=== PATIENT | male | born 1955 | race Caucasian/White ===

== ENCOUNTER 2022-08-11 10:39 | Outpatient (OUT) | payer MEDICARE, MEDICAID, SELFPAY ==
--- NOTE | 2022-08-11 11:47 | CA_ITS ---
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
== END 2022-08-11 10:40 ==
LOC: CARD 10:45
DX: I73.9 Peripheral vascular disease, unspecified (principal)
CPT/HCPCS: 93923

== ENCOUNTER 2022-09-23 11:14 | Outpatient (OUT) | payer MEDICARE, SELFPAY ==
[2022-09-23 11:42] LABS: Basophils Percent Auto 0.3 % (0.2-2.0); Eosinophils Percent Auto 0.4 % (0.9-7.0); Hematocrit 37.8 % (42.0-54.0); Hemoglobin 11.9 g/dL (14.0-18.0); Immature Granulocytes Abs Auto 0.03 10^3/uL (0.00-0.03); Immature Granulocytes Pct Auto 0.3 % (0.0-0.5); Lymphocytes Absolute Auto 3.9 10^3/uL (1.2-3.8); Lymphocytes Percent Auto 37.5 % (20.5-60.0); Mean Corpuscular HGB Conc 31.5 g/dL (29.9-35.2); Mean Corpuscular Hemoglobin 29.1 pg (25.9-34.0); Mean Corpuscular Volume 92.4 fL (80.0-94.0); Mean Platelet Volume 11.2 fL (9.5-13.5); Monocytes Absolute Auto 0.9 10^3/uL (0.3-0.8); Monocytes Percent Auto 8.5 % (1.7-12.0); Neutrophils Absolute Auto 5.5 10^3/uL (1.4-6.5); Platelet Count 215 10^3/uL (150-450); Red Blood Count 4.09 10^6/uL (4.70-6.10); White Blood Count 10.4 10^3/uL (4.0-11.0)
== END 2022-09-23 11:15 | disposition home or self-care (01) ==
LOC: LAB 11:16
DX: D64.9 Anemia, unspecified (principal)
CPT/HCPCS: 36415; 85025

== ENCOUNTER 2022-10-26 11:04 | Outpatient (OUT) | payer MEDICARE, SELFPAY ==
[2022-10-26 11:55] LABS: Basophils Absolute Auto 0.1 10^3/uL (0.0-0.1); Basophils Percent Auto 0.6 % (0.2-2.0); Eosinophils Absolute Auto 0.1 10^3/uL (0.0-0.7); Eosinophils Percent Auto 0.7 % (0.9-7.0); Hematocrit 39.1 % (42.0-54.0); Hemoglobin 11.9 g/dL (14.0-18.0); Immature Granulocytes Abs Auto 0.03 10^3/uL (0.00-0.03); Immature Granulocytes Pct Auto 0.4 % (0.0-0.5); Lymphocytes Percent Auto 37.2 % (20.5-60.0); Mean Corpuscular HGB Conc 30.4 g/dL (29.9-35.2); Mean Corpuscular Hemoglobin 30.6 pg (25.9-34.0); Mean Corpuscular Volume 100.5 fL (80.0-94.0); Mean Platelet Volume 11.1 fL (9.5-13.5); Monocytes Absolute Auto 0.7 10^3/uL (0.3-0.8); Monocytes Percent Auto 8.4 % (1.7-12.0); Neutrophils Absolute Auto 4.3 10^3/uL (1.4-6.5); Neutrophils Percent Auto 52.7 % (43.0-75.0); Platelet Count 238 10^3/uL (150-450); Red Blood Count 3.89 10^6/uL (4.70-6.10); Red Cell Distribution Width 14.1 % (11.0-15.0); White Blood Count 8.1 10^3/uL (4.0-11.0)
[2022-10-26 12:22] LABS: Anion Gap 8.9; Calcium 8.8 mg/dL (8.5-10.1); Carbon Dioxide 36.9 mmol/L (21.0-32.0); Chloride 102 mmol/L (98-107); Estimated GFR (African America >60 (>=60); Estimated GFR (Non-African Ame >60 (>=60); Glucose 88 mg/dL (74-106); Potassium 3.8 mmol/L (3.5-5.1); Sodium 144 mmol/L (136-145); Thyroid Stimulating Hormone 1.405 uIU/mL (0.358-3.740)
== END 2022-10-26 11:05 | disposition home or self-care (01) ==
DX: I48.0 Paroxysmal atrial fibrillation (principal); Z79.01 Long term (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 of anticoagulants
CPT/HCPCS: 36415; 80048; 84443; 85025

== ENCOUNTER 2022-11-08 10:40 | Outpatient (OUT) | payer MEDICARE, SELFPAY ==
[2022-11-08 11:22] LABS: Basophils Percent Auto 0.4 % (0.2-2.0); Eosinophils Absolute Auto 0.1 10^3/uL (0.0-0.7); Eosinophils Percent Auto 0.6 % (0.9-7.0); Hemoglobin 11.8 g/dL (14.0-18.0); Immature Granulocytes Abs Auto 0.05 10^3/uL (0.00-0.03); Immature Granulocytes Pct Auto 0.5 % (0.0-0.5); Lymphocytes Percent Auto 31.2 % (20.5-60.0); Mean Corpuscular HGB Conc 31.9 g/dL (29.9-35.2); Mean Corpuscular Hemoglobin 31.6 pg (25.9-34.0); Mean Corpuscular Volume 98.9 fL (80.0-94.0); Mean Platelet Volume 11.1 fL (9.5-13.5); Monocytes Absolute Auto 0.8 10^3/uL (0.3-0.8); Monocytes Percent Auto 8.6 % (1.7-12.0); Neutrophils Absolute Auto 5.6 10^3/uL (1.4-6.5); Neutrophils Percent Auto 58.7 % (43.0-75.0); Platelet Count 209 10^3/uL (150-450); Red Blood Count 3.74 10^6/uL (4.70-6.10); Red Cell Distribution Width 13.2 % (11.0-15.0); White Blood Count 9.5 10^3/uL (4.0-11.0)
== END 2022-11-08 10:41 | disposition home or self-care (01) ==
LOC: LAB 10:42
PROVIDERS: Visit Provider Nurse Practitioner
DX: Z79.01 Long term (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 of anticoagulants (principal)
CPT/HCPCS: 36415; 85025

== ENCOUNTER 2022-11-29 19:09 | Observation (INO) | payer MEDICARE, SELFPAY ==
[2022-11-29 19:12] VITALS: BP 115/45; PULSE 61; RESP 18; TEMP 36.3; O2SAT 96; BMI 23.1
--- NOTE | 2022-11-29 19:21 | ED_ITS ---
HPI - Fall General Chief Complaint: Fall Stated Complaint: Fall, Right Shoulder Pain Time Seen by Provider: 11/29/22 19:21 History of Present Illness HPI Narrative: left a bar and fell outdoors. family states he has to walk down two stairs. Patient not able to remember what happen. Complains of right shoulder pain. Denies headache or wrist pain but does have an abrasion right christianity and wrist. no swelling of the wrist. No associated nausea or vomiting. Admits to drinking too much Family called and they picked him up and brought him here patient does have home 02 and requires cardiac pacemaker Related Data Allergies Allergy/AdvReac Type Severity Reaction Status Date / Time codeine Allergy Mild Unknown Verified 11/29/22 19:23 Review of Systems ROS Status of ROS 10 or more systems reviewed and unremarkable except as noted in history and below [facility] Social History Smoking status: Former smoker Exam Constitutional Vital Signs, click to edit/add: Last Vital Signs Temp 97.3 F L 11/29/22 19:12 Pulse 61 11/29/22 19:12 Resp 18 11/29/22 19:12 BP 115/45 L 11/29/22 19:12 Pulse Ox 96 11/29/22 19:43 O2 Del Method Nasal Cannula 11/29/22 19:43 O2 Flow Rate 2 11/29/22 19:43 Common normals: no apparent distress, average body habitus, oriented x3, alert and well nourished [facility] Common normals: normocephalic (minor abrasions right facial christianity) Eye Common normals: EOMs intact bilaterally and conjunctivae normal Chest Common normals: inspection of chest normal and palpation of chest normal Respiratory Common normals: normal respiratory effort, no retractions, no use of accessory muscles and clear to auscultation bilaterally Cardio Common normals: regular rate, regular rhythm, S1 normal heart sound and S2 normal heart sound GI Common normals: Normal to inspection, nondistended, normoactive bowel sounds present, soft to palpation and non-tender Extremity Other: minor abrasion dorsum right wrist. Neg. swelling. FROM without discomfort Neuro Common normals: oriented x3, CN's II-XII intact bilaterally, moves all extremities and no focal motor deficits Psych Appearance: grossly normal Course Vital Signs Vital signs: Vital Signs Temperature 97.3 F L 11/29/22 19:12 Pulse Rate 61 11/29/22 19:12 Respiratory Rate 18 11/29/22 19:12 Blood Pressure 115/45 L 11/29/22 19:12 Pulse Oximetry 96 11/29/22 19:12 Oxygen Delivery Method Nasal Cannula 11/29/22 19:12 Oxygen Delivery Flow Rate 2 11/29/22 19:12 Temperature 97.3 F L 11/29/22 19:12 Pulse Rate 61 11/29/22 19:12 Respiratory Rate 18 11/29/22 19:12 Blood Pressure 115/45 L 11/29/22 19:12 Pulse Oximetry 96 11/29/22 19:43 Oxygen Delivery Method Nasal Cannula 11/29/22 19:43 Oxygen Delivery Flow Rate 2 11/29/22 19:43 MDM - Fall MDM Narrative Medical decision making narrative: patient left a bar tonight and fell walking down a couple of steps striking his right shoulder. Also sustained minor abrasion of the right christianity and wrist. xray with fracture of the right shoulder. D-dimer elevated. CTA chest neg for PE. did demonstrate 1.1cm nodule. Patient aware of the nodule and states it is followed by Dr Thomas. His labs demonstrate alcohol intoxication. He has no respiratory symptoms and pneumonia not suspected clinically. Patient placed in a sling and discharged home to follow up with orthopedics Lab Data Labs: Lab Results 11/29/22 Range/Units 19:35 WBC 9.4 (4.0-11.0) 10^3/uL RBC 3.47 L (4.70-6.10) 10^6/uL Hgb 11.4 L (14.0-18.0) g/dL Hct 35.3 L (42.0-54.0) % MCV 101.7 H (80.0-94.0) fL MCH 32.9 (25.9-34.0) pg MCHC 32.3 (29.9-35.2) g/dL RDW 12.6 (11.0-15.0) % Plt Count 244 (150-450) 10^3/uL MPV 11.5 (9.5-13.5) fL Neut % (Auto) 44.3 (43.0-75.0) % Lymph % (Auto) 47.3 (20.5-60.0) % [place] % (Auto) 7.3 (1.7-12.0) % Eos % (Auto) 0.4 L (0.9-7.0) % Baso % (Auto) 0.4 (0.2-2.0) % Neut # (Auto) 4.2 (1.4-6.5) 10^3/uL Lymph # (Auto) 4.4 H (1.2-3.8) 10^3/uL [place] # (Auto) 0.7 (0.3-0.8) 10^3/uL Eos # (Auto) 0.0 (0.0-0.7) 10^3/uL Baso # (Auto) 0.0 (0.0-0.1) 10^3/uL Abs Immat Gran (auto) 0.03 (0.00-0.03) 10^3/uL Imm/Tot Granulo (auto) 0.3 (0.0-0.5) % D-Dimer 1.66 H* (<=0.59) mg/L FEU Sodium 133 L (136-145) mmol/L Potassium 3.2 L (3.5-5.1) mmol/L Chloride 94 L (98-107) mmol/L Carbon Dioxide 30.3 (21.0-32.0) mmol/L Anion Gap 11.9 BUN 18.0 (7.0-18.0) mg/dL Creatinine 0.90 (0.70-1.30) mg/dL Est GFR ( Amer) >60 (>=60) Est GFR (Non-Af Amer) >60 (>=60) BUN/Creatinine Ratio 20.0 Glucose 96 (74-106) mg/dL Calcium 8.4 L (8.5-10.1) mg/dL Troponin I High Sens 7.4 (4.0-76.1) pg/mL Ethanol Quant 292 mg/dL Imaging Data CT scan - chest: Attestation: I personally reviewed and interpreted this imaging study as follows: Radiologist's impression: [email or web address]=#[email or web address] [email or web address]?file=#page=2 Find: Highlight all Match case Current View [email or web address]?file=#[email or web address]&zoom=auto,-13,576 Page: of 2 Current View [email or web address]?file=#[email or web address]&zoom=auto,-13,576 [place] [id number] Patient Name: ALESSANDRA LECHUGA MRN: [id number] date: 1955 Sex: M Assigned Patient Location: ER Current Patient Location: ER Accession/Order Number: [id number] Exam Date: 11/29/2022 21:20 Report Date: 11/29/2022 22:10 At the request of: BERNADETTE FERNANDEZ Procedure: CT angio chest EXAM: CT angio chest HISTORY: fall COMPARISON: None. TECHNIQUE: CT chest with intravenous contrast was performed with timing for the evaluation for pulmonary arteries. Multiplanar reformats were performed. MIP (maximum intensity projection) images or 3D post processing was performed. Dose reduction techniques were achieved by using automated exposure control and/or adjustment of mA and/or kV according to patient size and/or use of iterative reconstruction technique. FINDINGS: Lungs: There is bilateral centrilobular emphysema. No pneumothorax, or effusion. There is right basilar atelectasis and/or consolidation, representing early pneumonia/aspiration pneumonia. There is a 1.1 cm right lower lobe pulmonary nodule. Airways: Normal. Mediastinum: There are AP window, right paratracheal, subcarinal lymph nodes measuring up to 1.1 cm. There are subcentimeter bilateral hilar lymph nodes Aorta: No aneurysm. Cardiac: Normal size. No pericardial effusion. Pulmonary vasculature: Diagnostic opacification of pulmonary arteries without evidence of pulmonary embolus. Normal morphology. Bones: No acute bony abnormality. No acute displaced fracture. Axilla: No adenopathy. Thyroid gland: No abnormality demonstrated on provided imaging. Soft tissues: Unremarkable. Upper abdomen: Small hiatal hernia. There is partially visualized lesser and greater curvature gastric wall thickening, nonspecific and can be due to gastritis. Correlation with upper GI endoscopy is recommended. Additional findings: None. IMPRESSION: No evidence of pulmonary embolus. Right basilar atelectasis and/or consolidation, representing early pneumonia/aspiration pneumonia. 1.1 cm right lower lobe pulmonary nodule. PET/CT, biopsy or 3 months follow-up is recommended for better evaluation. Mediastinal lymphadenopathy measuring up to 1.1 cm. Small hiatal hernia. There is partially visualized lesser and greater curvature gastric wall thickening, nonspecific and can be due to gastritis. Correlation with upper GI endoscopy is recommended. Electronically authenticated by: FRANC SANDOVAL Date: 11/29/2022 22:10 Chest x-ray: Radiologist's impression: ALESSANDRA LECHUGA MRN: [facility]:[id number] date: 1955 Sex: M Assigned Patient Location: ED.MAIN Current Patient Location: ER Accession/Order Number: [id number] Exam Date: 11/29/2022 19:45 Report Date: 11/29/2022 20:30 At the request of: BERNADETTE FERNANDEZ Procedure: XR shoulder RT min 2V EXAM: XR shoulder RT min 2V HISTORY: fall COMPARISON: None. TECHNIQUE: 4 views FINDINGS: IMPRESSION: Comminuted displaced intra-articular fracture of the right proximal humerus. Diffuse subcutaneous soft tissue edema and glenohumeral joint effusion. Degenerative changes of the acromioclavicular joint. No visualized right rib fractures Discharge Plan Discharge Chief Complaint: Fall Clinical Impression: Alcohol intoxication, Abrasion of face, Closed fracture of head of right humerus Patient Disposition: Home, Self-Care Instructions: How to Use a Sling (ED), Alcohol Intoxication (ED), Abrasion (ED), Proximal Humerus Fracture (ED) Additional Instructions: follow up with Dr Funez orthopedics Stand Alone Forms: Portal Instructions Referrals: Physician,Non-Staff, MD [Primary Care Provider] - 1 week
--- NOTE | 2022-11-29 19:24 | XR_ITS ---
The [address] [address] Patient Name: ALESSANDRA LECHUGA MRN: [id number] date: 1955 Sex: M Assigned Patient Location: ED.MAIN Current Patient Location: ER Accession/Order Number: [id number] Exam Date: 11/29/2022 19:45 Report Date: 11/29/2022 20:29 At the request of: BERNADETTE FERNANDEZ Procedure: XR chest 1V EXAM: XR chest 1V HISTORY: Fall downstairs COMPARISON: None. TECHNIQUE: Portable chest FINDINGS: The lung parenchyma exhibits no consolidation or infiltrate. No pneumothorax or pleural effusion. The cardiac, mediastinal and hilar contours are unremarkable. Patient is status post left-sided cardiac pacemaker. No visualized acute osseous abnormality XR/XR chest 1V IMPRESSION: No visualized acute irregularity Electronically authenticated by: ANNA ZARCO Date: 11/29/2022 20:29
--- NOTE | 2022-11-29 19:24 | CT_ITS ---
[address] [address] Patient Name: ALESSANDRA LECHGUA MRN: [id number] date: 1955 Sex: M Assigned Patient Location: ER Current Patient Location: ER Accession/Order Number: [id number] Exam Date: 11/29/2022 19:35 Report Date: 11/29/2022 20:17 At the request of: BERNADETTE FERNANDEZ Procedure: CT head/brain wo con EXAM: CT head/brain wo con HISTORY: Fall. COMPARISON: None. TECHNIQUE: Axial CT scans through the head were obtained without IV contrast administration. Dose reduction techniques were achieved by using: automated exposure control and/or adjustment of mA and /or kV according to patient size and/or use of iterative reconstruction technique. FINDINGS: There is no evidence of acute intracranial hemorrhage or abnormal extra-axial fluid collection. No mass effect or midline shift is seen. There is no evidence of large acute territorial infarction. There is no hydrocephalus. There is a remote lacunar infarct in left thalamus. Mild enlarged ventricles and sulci, consistent with age appropriate cerebral atrophy. Mild low-attenuation patchy areas are present in supratentorial white matter, likely represents chronic microvascular ischemia. There are atherosclerotic calcifications of bilateral intracranial carotid arteries. To the limit of CT, the posterior fossa appears unremarkable. No definite acute fracture is identified. There is bone deformity at the partially visualized right nasal bone which may be due to an old fracture. Soft tissues are unremarkable. The visualized orbits show no abnormal mass. The visualized paranasal sinuses show no air-fluid level. Mastoid air cells are clear. CT/CT head/brain wo con IMPRESSION: No CT evidence of acute intracranial abnormality. A small remote lacunar infarct in left thalamus. Mild chronic microvascular ischemia and involutional changes. Bone deformity at the partially visualized right nasal bone which may be due to an old fracture. Recommend clinical correlation and consider CT facial bone if clinically indicated. Electronically authenticated by: AALIYAH LANG Date: 11/29/2022 20:17
--- NOTE | 2022-11-29 19:24 | XR_ITS ---
[address] [address] Patient Name: ALESSANDRA LECHUGA MRN: [id number] date: 1955 Sex: M Assigned Patient Location: ED.MAIN Current Patient Location: ER Accession/Order Number: [id number] Exam Date: 11/29/2022 19:45 Report Date: 11/29/2022 20:30 At the request of: BERNADETTE FERNANDEZ Procedure: XR shoulder RT min 2V EXAM: XR shoulder RT min 2V HISTORY: fall COMPARISON: None. TECHNIQUE: 4 views FINDINGS: IMPRESSION: Comminuted displaced intra-articular fracture of the right proximal humerus. Diffuse subcutaneous soft tissue edema and glenohumeral joint effusion. Degenerative changes of the acromioclavicular joint. No visualized right rib fractures. Electronically authenticated by: ANNA ZARCO Date: 11/29/2022 20:30
[2022-11-29 19:43] VITALS: O2SAT 96
[2022-11-29 20:08] LABS: Basophils Percent Auto 0.4 % (0.2-2.0); Eosinophils Percent Auto 0.4 % (0.9-7.0); Hematocrit 35.3 % (42.0-54.0); Hemoglobin 11.4 g/dL (14.0-18.0); Immature Granulocytes Abs Auto 0.03 10^3/uL (0.00-0.03); Immature Granulocytes Pct Auto 0.3 % (0.0-0.5); Lymphocytes Absolute Auto 4.4 10^3/uL (1.2-3.8); Lymphocytes Percent Auto 47.3 % (20.5-60.0); Mean Corpuscular HGB Conc 32.3 g/dL (29.9-35.2); Mean Corpuscular Hemoglobin 32.9 pg (25.9-34.0); Mean Corpuscular Volume 101.7 fL (80.0-94.0); Mean Platelet Volume 11.5 fL (9.5-13.5); Monocytes Absolute Auto 0.7 10^3/uL (0.3-0.8); Monocytes Percent Auto 7.3 % (1.7-12.0); Neutrophils Absolute Auto 4.2 10^3/uL (1.4-6.5); Neutrophils Percent Auto 44.3 % (43.0-75.0); Platelet Count 244 10^3/uL (150-450); Red Blood Count 3.47 10^6/uL (4.70-6.10); Red Cell Distribution Width 12.6 % (11.0-15.0); White Blood Count 9.4 10^3/uL (4.0-11.0)
[2022-11-29 20:18] LABS: Anion Gap 11.9; Carbon Dioxide 30.3 mmol/L (21.0-32.0); Chloride 94 mmol/L (98-107); Glucose 96 mg/dL (74-106); Potassium 3.2 mmol/L (3.5-5.1); Sodium 133 mmol/L (136-145)
[2022-11-29 20:19] LABS: Calcium 8.4 mg/dL (8.5-10.1); Estimated GFR (African America >60 (>=60); Estimated GFR (Non-African Ame >60 (>=60); Ethanol 292 mg/dL; Troponin I High Sensitivity 7.4 pg/mL (4.0-76.1)
[2022-11-29] MEDS: MORPHINE SULFATE 4 MG/ML VIAL IV (20:27)
[2022-11-29 20:47] LABS: D Dimer 1.66 mg/L FEU (<=0.59)
--- NOTE | 2022-11-29 21:03 | CT_ITS ---
[address] [address] Patient Name: ALESSANDRA LECHUGA MRN: [id number] date: 1955 Sex: M Assigned Patient Location: ER Current Patient Location: ER Accession/Order Number: [id number] Exam Date: 11/29/2022 21:20 Report Date: 11/29/2022 22:10 At the request of: BERNADETTE FERNANDEZ Procedure: CT angio chest EXAM: CT angio chest HISTORY: fall COMPARISON: None. TECHNIQUE: CT chest with intravenous contrast was performed with timing for the evaluation for pulmonary arteries. Multiplanar reformats were performed. MIP (maximum intensity projection) images or 3D post processing was performed. Dose reduction techniques were achieved by using automated exposure control and/or adjustment of mA and/or kV according to patient size and/or use of iterative reconstruction technique. FINDINGS: Lungs: There is bilateral centrilobular emphysema. No pneumothorax, or effusion. There is right basilar atelectasis and/or consolidation, representing early pneumonia/aspiration pneumonia. There is a 1.1 cm right lower lobe pulmonary nodule. Airways: Normal. Mediastinum: There are AP window, right paratracheal, subcarinal lymph nodes measuring up to 1.1 cm. There are subcentimeter bilateral hilar lymph nodes Aorta: No aneurysm. Cardiac: Normal size. No pericardial effusion. Pulmonary vasculature: Diagnostic opacification of pulmonary arteries without evidence of pulmonary embolus. Normal morphology. Bones: No acute bony abnormality. No acute displaced fracture. Axilla: No adenopathy. Thyroid gland: No abnormality demonstrated on provided imaging. Soft tissues: Unremarkable. Upper abdomen: Small hiatal hernia. There is partially visualized lesser and greater curvature gastric wall thickening, nonspecific and can be due to gastritis. Correlation with upper GI endoscopy is recommended. Additional findings: None. CT/CT angio chest IMPRESSION: No evidence of pulmonary embolus. Right basilar atelectasis and/or consolidation, representing early pneumonia/aspiration pneumonia. 1.1 cm right lower lobe pulmonary nodule. PET/CT, biopsy or 3 months follow-up is recommended for better evaluation. Mediastinal lymphadenopathy measuring up to 1.1 cm. Small hiatal hernia. There is partially visualized lesser and greater curvature gastric wall thickening, nonspecific and can be due to gastritis. Correlation with upper GI endoscopy is recommended. Electronically authenticated by: FRANC SANDOVAL Date: 11/29/2022 22:10
[2022-11-29 23:42] VITALS: BP 110/58; PULSE 74; O2SAT 99
--- NOTE | 2022-11-29 23:56 | ECG_ITS ---
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
[2022-11-30] VITALS (18 sets, daily range): BP systolic 71–129; BP diastolic 40–83; PULSE 75–993; RESP 10–18; TEMP 36.7–36.8; O2SAT 90–99; BMI 24.3
[2022-11-30] MEDS: 0.9 % SODIUM CHLORIDE 1,000 ML 1000 ML IV (00:14)
--- NOTE | 2022-11-30 03:29 | P.PN_ITS ---
Progress Note: Subjective Subjective Interval history: The patient is a 67-year-old male with a history of COPD and alcohol dependence. He continues to have frequent falls related to alcohol use. Today, he had drank 5 beers and fell on steps leading outside of a bar. He fell on his right side and apparently had a humeral head fracture. The patient does not recollect any of these events. He presented to the ED and the right shoulder was placed in a sling. He was noted to have an alcohol level of 292. He was scheduled to be discharged and when he was being wheeled out into the parking lot in his wheelchair, he had a sudden on set of syncope, slumping in his chair. The patient again does not recollect the events. He denies any preceding chest pain, diaphoresis, nausea or vomiting. The patient states that he has had these episodes in the past. He is being admitted for further evaluation. Exam Narrative Exam Narrative: General : Alert and oriented x3 HEENT : Extraocular movements intact, pupils equal round and reactive to light and accommodation Neck: Supple, no JVD Chest: Clear to auscultation bilaterally, no wheezes Heart: Regular rate and rhythm, S1 and S2 heard Abdomen: Soft nontender nondistended. Extremities: Right arm immobilized in a sling Neurologically: Moving all 4 extremities Skin: No rashes Constitutional Vital Signs, click to edit/add: Last Vital Signs Temp 98.0 F 11/30/22 02:15 Pulse 94 H 11/30/22 03:17 Resp 18 11/30/22 02:15 BP 118/66 11/30/22 02:15 Pulse Ox 90 L 11/30/22 02:15 O2 Del Method Nasal Cannula 11/30/22 02:15 O2 Flow Rate 2 11/30/22 02:15 Progress Note: Objective Labs Labs: Short CBC 11/29/22 Range/Units 19:35 WBC 9.4 (4.0-11.0) 10^3/uL Hgb 11.4 L (14.0-18.0) g/dL Hct 35.3 L (42.0-54.0) % Plt Count 244 (150-450) 10^3/uL BMP 11/29/22 19:35 Sodium 133 L Potassium 3.2 L Chloride 94 L Carbon Dioxide 30.3 BUN 18.0 Creatinine 0.90 Glucose 96 Calcium 8.4 L Progress Note: A&P Assessment and Plan (1) Alcohol intoxication: (2) Closed fracture of head of right humerus: Plan The patient is a 67-year-old male with above medical problems, presenting with syncope. Syncope -Likely vasovagal or due to alcohol intoxication -Provide supportive care -Placed on telemetry to look for underlying arrhythmia -Gentle IV fluids -Check orthostatic blood pressure -Check carotid ultrasound -Check echocardiogram Right humeral head fracture -Secondary to fall -Immobilized in sling -Orthopedic evaluation as outpatient -Pain control Alcohol dependence -Start alcohol withdrawal protocol DVT Prophylaxis -Eliquis Medication review -Medication reconciliation form completed Goals of care -Full code Communications -Discussed with the emergency room physician -Discussed with the bedside nurse -Patient updated of plan of care, all questions answered to their satisfaction Disposition -Home when medically stable Telemedicine clause -As the provider of this telehealth evaluation, requested by the patient's evaluating physician, I attest that I introduced myself to the patient, provided my credentials and determined that telemedicine via a real-time, two-way interactive audio and video platform is an appropriate and effective means of providing this service. -I reviewed the patient's chart and had a discussion with the member of the patient's treatment team. -The patient and I mutually agreed with continuation of this evaluation via telemedicine. The patient consented for the telemedicine evaluation. -This virtual encounter was taken place from [place], [place]. The encounter was approximately 35 minutes. The nurse was present during the entire time of the encounter and was able to remove the stethoscope and appropriate directions. The patient was evaluated at [facility] Telemedicine Attestation Telemedicine Attestation I conducted this encounter from [] via secure live, [id number] video conference with the patient, located at [facility] with []. Prior to the interview, the risks and benefits of telemedicine were discussed with the patient and verbal consent was obtained.
--- NOTE | 2022-11-30 03:34 | CA_ITS ---
Patient: ALESSANDRA LECHUGA Exam Date: 11/30/2022 : 1955 Gender:M Ordering : Yusra De Souza Admission #: [id number] Family : SHAIKH Nelia DAVIS . Order #: [id number] CLICK HERE TO VIEW EXAM ECHOCARDIOGRAM REPORT PROCEDURE: CA ECHO DOPPLER COMPLETE INDICATIONS: syncope COMPARISON: None. DESCRIPTION: COMPLETE ECHOCARDIOGRAM Real-time transthoracic echocardiography with 2D, M-mode, spectral and color flow Doppler performed. QUALITY: Technical quality was limited because of lung artifact. LEFT VENTRICLE: Normal chamber size. Normal left ventricular wall thickness. LV EF: Global left ventricular systolic function is hyperdynamic; visual estimation of left ventricular ejection fraction is 70 to 75%. DIASTOLIC: Normal diastolic function. ATRIAL SEPTUM: Inadequately seen. LEFT ATRIUM: Poorly seen; appears normal in size. RIGHT ATRIUM: Normal chamber size. RIGHT VENTRICLE: Normal chamber size. Normal right ventricular systolic function. TRICUSPID VALVE: Normal mobility and thickness. No stenosis with trivial regurgitation. No evidence of pulmonary hypertension. RVSP 17mmHg MITRAL VALVE: Normal mobility and thickness. No evidence of mitral valve stenosis. There is no mitral annular calcification. No mitral regurgitation. AORTIC VALVE: Not well visualized. No evidence of aortic valve stenosis. No aortic regurgitation. AORTIC ROOT: Normal diameter and appearance. PULMONIC VALVE: Not well visualized. PERICARDIUM: No evidence of pericardial effusion. IVC: Not well visualized. CONCLUSION: 1. Global left ventricular systolic function is hyperdynamic; visually estimated ejection fraction is 70 to 75% 2. The right ventricle is normal in size and systolic function 3. No significant valvular abnormality; valves are poorly seen Adult Echocardiography Procedure Report Left Ventricle LVEDD (3.7 - 5.6 cm): 4.93 cm LVESD (2.2 - 4.0 cm): 3.06 cm LVIVS thickness (0.6 - 1.2 cm): 0.67 cm LVPW thickness (0.5 - 1.0 cm): 0.97 cm e': 0.14 m/s E - e': 4.90 LVOT Max Gradient: 4.96 mm[Hg] LVOT Area (cm2): 1.11 m/s Peak Velocity (LVOT): 1.11 m/s Mean Velocity (LVOT): 0.69 m/s LVOT Diameter 2.07 cm Left Atrium Left Atrium Systolic Dimension: 3.46 cm Mitral Valve MV E to A Ratio: 0.67 Mitral Valve A-Wave Peak Velocity: 1.05 m/s Mitral Valve E-Wave Peak Velocity: 0.71 m/s Right Ventricle RV Internal Diastolic Dimension: 3.29 cm Aorta AO Root Diam: 3.31 cm Aortic Valve AoV Area ([place]): 2.53 cm2, 2.53 cm2 AoV Area (VTI): 2.65 cm2, 2.65 cm2 Peak Velocity(Antegrade Flow): 1.47 m/s Peak Gradient(Antegrade Flow): 8.69 mm[Hg] Mean Velocity(Antegrade Flow): 0.93 m/s Mean Gradient(Antegrade Flow): 4.20 mm[Hg] Velocity Time Integral: 24.85 cm Tricuspid Valve Peak Velocity (Regurgitant Flow): 1.61 m/s, 1.85 m/s Pulmonic Valve Peak Velocity: 1.17 m/s Peak Gradient: 5.50 mm[Hg] Right Atrium Right Atrium Systolic Pressure: 45.76 ml, 45.76 ml Dictated by: Khloe Berry M.D. on 11/30/2022 at 12:56 Approved by: Khloe Berry M.D. on 11/30/2022 at 12:59
[2022-11-30] MEDS: FOLIC ACID 1 MG TABLET PO ×2 (04:55→08:49)
[2022-11-30] MEDS: SODIUM CHLORIDE 0.45 % 1,000 ML 75 ML IV (04:55)
[2022-11-30] MEDS: MULTIVITAMIN TABLET 1 TAB PO ×2 (04:55→08:49)
[2022-11-30] MEDS: THIAMINE MONONITRATE (VIT B1) 100 MG TABLET PO ×2 (04:55→08:49)
[2022-11-30] MEDS: MORPHINE SULFATE 2 MG/ML SYRINGE 1 MG IV (04:56)
[2022-11-30] MEDS: ACETAMINOPHEN 325 MG TABLET 650 MG PO (07:32)
[2022-11-30] MEDS: OMEPRAZOLE 40 MG CAPSULE.DR PO (08:43)
[2022-11-30] MEDS: FUROSEMIDE 20 MG TABLET PO (08:43)
[2022-11-30] MEDS: APIXABAN 5 MG TABLET PO (08:49)
--- NOTE | 2022-11-30 10:57 | RESP.RT ---
Meds ordered as interchange for Spiriva and patient does not take the Spiriva at home anymore
--- NOTE | 2022-11-30 11:21 | P.HP_ITS ---
H&P: HPI History of Present Illness Chief complaint: Fall/Syncope Narrative: HPI and Hospital Course: 67 y o male was in his usual state of health and fell after coming out of the bar. He lost consciousness and do not recall anything other than when he was in the hospital. He reported drinking more than usual last night and was intoxicated on arrival with ETOH levels of 292. He complained of left arm pain and was found to have left displaced humeral fx. Initially, patient was discharged from ED but he lost consciousness briefly while RN was wheeling him out and was brought back again. He was found to be hypotensive and was treated with IVF and admitted for observation. This morning, he denies any active complaints to offer except for right arm pain. He is not in alcohol withdrawal. He denies prior hx of alcohol withdrawal. Patient has hx of PAD, Afib and currently on Eliquis for stroke px. 2D ECHO performed - no sig abnormality (unofficial report). Stable for d/c - patient asked to f/u with Orthopedic for his humeral fx. Admission Diagnosis Alcohol intoxication Right humeral fx Afib Syncope likely vasovagal. COPD Chronic resp failure with hypoxia HLD HTN Alcohol abuse Discharge diagnosis as above Discharge status stable Review of Systems ROS Status of ROS 10 or more systems reviewed and unremarkable except as noted in history and below [facility] Medical History (Updated 11/30/22 @ 11:34 by Shaikh Tiffany MD) Abrasion of face ?S00.81XA - Abrasion of other part of head, initial encounter (ICD-10) Alcohol dependence ?F10.20 - Alcohol dependence, uncomplicated (ICD-10) Atrial fibrillation ?I48.91 - Unspecified atrial fibrillation (ICD-10) CHF (congestive heart failure) ?I50.9 - Heart failure, unspecified (ICD-10) Chronic respiratory failure with hypoxia ?J96.11 - Chronic respiratory failure with hypoxia (ICD-10) COPD (chronic obstructive pulmonary disease) ?J44.9 - Chronic obstructive pulmonary disease, unspecified (ICD-10) HLD (hyperlipidemia) ?E78.5 - Hyperlipidemia, unspecified (ICD-10) HTN (hypertension) ?I10 - Essential (primary) hypertension (ICD-10) Inguinal hernia bilateral, non-recurrent ?K40.20 - Bilateral inguinal hernia, without obstruction or gangrene, not specified as recurrent (ICD-10) Pacemaker ?Z95.0 - Presence of cardiac pacemaker (ICD-10) PAD (peripheral artery disease) ?I73.9 - Peripheral vascular disease, unspecified (ICD-10) Rectal fistula ?K60.4 - Rectal fistula (ICD-10) Surgical History (Updated 11/30/22 @ 01:59 by Kathia Koch, RN) S/P insertion of iliac artery stent ?Z95.828 - Presence of other vascular implants and grafts (ICD-10) Family History (Updated 11/30/22 @ 02:03 by Kathia Koch, RN) Father Family history of cancer Brother Family history of diabetes mellitus Social History (Updated 11/30/22 @ 02:09 by Kathia Koch, RN) Within the past year, how often did you have a drink containing alcohol: 2-3 times a week Within the past year, how many standard drinks containing alcohol did you have on a typical day: 3 or 4 Within the past year, how often did you have six or more drinks on one occasion: less than monthly Total score: 3 Score interpretation: A score of 4 or more indicates drinking is likely to affect patient's safety. Smoking status: Former smoker Non-prescribed substance use: denies use Previous occupational history: retired from [employer] Highest level of school completed/degree received: high school graduate Are you now , , , , never or living with a partner: living with partner In a typical week, how many times do you talk on the telephone with family, friends, or neighbors: twice per week How often do you get together with friends or relatives: twice per week How often do you attend baptism or episcopalian services: never Little interest or pleasure in doing things: not at all Feeling down, depressed, or hopeless: not at all Feel stressed/tense/nervous/anxious/difficulty sleeping: to some extent Do you think of yourself as: straight/heterosexual Gender Identity: male Meds Home Medications and Allergies Home Medications Medication Instructions Recorded Confirmed Type apixaban 5 mg tablet (Eliquis) 5 mg PO BID 11/30/22 11/30/22 History dofetilide 250 mcg capsule 250 mcg PO Q12H 11/30/22 11/30/22 History furosemide 20 mg tablet 20 mg PO DAILY 11/30/22 11/30/22 History ipratropium 0.5 mg-albuterol 3 mg 3 ml inhalation Q6H PRN SHORTNESS 11/30/22 11/30/22 History (2.5 mg base)/3 mL nebulization OF BREATH OR WEEZING soln metoprolol succinate 25 mg 25 mg PO DAILY 11/30/22 11/30/22 History tablet,extended release 24 hr omeprazole 40 mg capsule,delayed 40 mg PO DAILY 11/30/22 11/30/22 History release tiotropium bromide 18 mcg capsule 1 cap inhalation DAILY 11/30/22 11/30/22 History with inhalation device (Spiriva with HandiHaler) Allergies Allergy/AdvReac Type Severity Reaction Status Date / Time codeine Allergy Mild Unknown Verified 11/29/22 19:23 Exam Constitutional Vital Signs, click to edit/add: Last Vital Signs Temp 98.2 F 11/30/22 05:23 Pulse 88 11/30/22 09:48 Resp 16 11/30/22 07:42 BP 105/64 11/30/22 08:43 Pulse Ox 97 11/30/22 10:56 O2 Del Method Nasal Cannula 11/30/22 10:56 O2 Flow Rate 2 11/30/22 10:56 Documenting provider has reviewed patient's vital signs: yes Common normals: no apparent distress and oriented x3 General appearance: cooperative HENMT Common normals: normocephalic and head/scalp atraumatic Head and scalp: normocephalic and atraumatic Eye Common normals: conjunctivae normal and no scleral icterus Conjunctiva: conjunctiva(e) normal Respiratory Common normals: normal respiratory effort and clear to auscultation bilaterally Effort & inspection: able to speak in complete sentences Auscultation: clear to auscultation bilaterally Cardio Common normals: regular rate, S1 normal heart sound and S2 normal heart sound Rate: regular rate Heart sounds: S1 normal and S2 normal GI Common normals: Normal to inspection, nondistended, normoactive bowel sounds present, soft to palpation, non-tender and no hepatosplenomegaly Palpation: soft and no hepatosplenomegaly Extremity Other: RIGHT ARM IN SLING DUE TO HUMERAL FX. Neuro Common normals: oriented x3, moves all extremities and no focal motor deficits Psych Common normals: mental status grossly normal, denies hallucinations, denies homicidal ideation and denies suicidal ideation Results Labs Labs: Short CBC 11/29/22 Range/Units 19:35 WBC 9.4 (4.0-11.0) 10^3/uL Hgb 11.4 L (14.0-18.0) g/dL Hct 35.3 L (42.0-54.0) % Plt Count 244 (150-450) 10^3/uL BMP 11/29/22 19:35 Sodium 133 L Potassium 3.2 L Chloride 94 L Carbon Dioxide 30.3 BUN 18.0 Creatinine 0.90 Glucose 96 Calcium 8.4 L Assessment and Plan Assessment and Plan (1) Alcohol intoxication: Assessment and Plan: p/w alcohol intoxication, resulting in fall, humeral fx and likely vasovagal syncope as a result of intoxication. Discussed alcohol use, risks associated with it especially for him, given his multiple comorbidities. Sober today. No concern for ongoing alcohol intoxication and/or alcohol withdrawal. Qualifiers: Complication of substance-induced condition: uncomplicated Qualified Code(s): F10.920 - Alcohol use, unspecified with intoxication, uncomplicated (2) Vasovagal syncope: Assessment and Plan: Likely vasovagal syncope. CTA negative for PE. 2D ECHO no sig abnormality noted (unofficial report) (3) Closed fracture of head of right humerus: Assessment and Plan: Outpatient f/u with Orthopedics. Keep it immobilized, no weight bearing until cleared by orthopedic Qualifiers: Encounter type: subsequent encounter Fracture healing: with routine healing Qualified Code(s): S42.291D - Other displaced fracture of upper end of right humerus, subsequent encounter for fracture with routine healing (4) Atrial fibrillation: Assessment and Plan: In NSR. C/w Eliquis and Dofetilide. Follows Cardiology as outpatient. Discussed risk of bleeding with eliquis and excessive alcohol use. Qualifiers: Atrial fibrillation type: paroxysmal Qualified Code(s): I48.0 - Paroxysmal atrial fibrillation (5) COPD (chronic obstructive pulmonary disease): Assessment and Plan: Stable. No active wheezing noted. On 2 L 02 at baseline. C/w Spiriva. Qualifiers: COPD type: unspecified COPD Qualified Code(s): J44.9 - Chronic obstructive pulmonary disease, unspecified (6) Alcohol dependence: Assessment and Plan: Discussed alcohol use, risks associated with it. Qualifiers: Substance use status: with intoxication Complication of substance- induced condition: with unspecified complication Qualified Code(s): F10.229 - Alcohol dependence with intoxication, unspecified (7) Chronic respiratory failure with hypoxia: Assessment and Plan: On 2 L 02 for COPD. Unchanged. stable. (8) PAD (peripheral artery disease): Assessment and Plan: s/p iliac stent. Outpatient f/u (9) HTN (hypertension): Assessment and Plan: C/w home meds. BP stable now. Was hypotensive after syncope likely due to vasovagal response and excessive drinking. (10) HLD (hyperlipidemia): Assessment and Plan: Not on statin for some reason. Defer to PCP or cardiology. (11) Mediastinal lymphadenopathy: Assessment and Plan: Mediastinal LN along with 1 cm lung nodule - concerning for malignancy and will require either PET or repeat CT. Will defer to outpatient. (12) Lung nodule seen on imaging study: Assessment and Plan: Mediastinal LN along with 1 cm lung nodule - concerning for malignancy and will require either PET or repeat CT. Will defer to outpatient. Plan Stable for discharge. Outpatient f/u with Cardiology and PCP
--- NOTE | 2022-11-30 11:55 | CM.NOTE ---
Rounds made with Dr. Allen. Plan for discharge today.
--- NOTE | 2022-11-30 14:07 | SWNOTE1 ---
SW was not able to assess pt prior to pt being discharged. Case management did see pt and had no needs.
--- NOTE | 2022-12-01 14:45 | CM.NOTE ---
Attempted call back. No answer
--- NOTE | 2022-12-03 11:20 | CM.DCFOLLOWU ---
Second attempt at discharge follow up call. No answer.
== END 2022-11-30 11:54 | disposition home or self-care (01) ==
LOC: ER 23:17 → MS 11-30 01:48
PROVIDERS: Admitting Provider Internal Medicine; Emergency Provider Internal Medicine; Visit Provider Internal Medicine
DX: R55 Syncope and collapse (principal); S42.201A Unspecified fracture of upper end of right humerus, initial encounter for closed fracture; S00.81XA Abrasion of other part of head, initial encounter; J96.11 Chronic respiratory failure with hypoxia; I73.9 Peripheral vascular disease, unspecified; I48.91 Unspecified atrial fibrillation; E78.5 Hyperlipidemia, unspecified; I95.9 Hypotension, unspecified; I11.0 Hypertensive heart disease with heart failure; I50.9 Heart failure, unspecified; F10.229 Alcohol dependence with intoxication, unspecified; J44.9 Chronic obstructive pulmonary disease, unspecified; Y90.8 Blood alcohol level of 240 mg/100 ml or more; Z86.73 Personal history of transient ischemic attack (TIA), and cerebral infarction without residual deficits; Z99.81 Dependence on supplemental oxygen; Z95.0 Presence of cardiac pacemaker; Z87.891 Personal history of nicotine dependence; W10.9XXA Fall (on) (from) unspecified stairs and steps, initial encounter; Z79.01 Long term (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 of anticoagulants; Z95.828 Presence of other vascular implants and grafts; Z79.899 Other long term (current) drug therapy
CPT/HCPCS: 36415; 70450; 71045; 71275; 73030; 80048; 80320; 84484; 85025; 85378; 93005; 93306; 94761; 96361; 96374; 96376; 99285; G0378; Q3014; Q9967

== ENCOUNTER 2022-12-06 10:54 | Outpatient (OUT) | payer MEDICARE, SELFPAY ==
--- NOTE | 2022-12-06 11:38 | XR_ITS ---
The [address] [address] Patient Name: ALESSANDRA LECHUGA MRN: [id number] date: 1955 Sex: M Assigned Patient Location: [facility] Current Patient Location: Accession/Order Number: [id number] Exam Date: 12/06/2022 11:30 Report Date: 12/07/2022 07:45 At the request of: KATE RYAN Procedure: XR humerus RT PROCEDURE: XR humerus RT COMPARISON: 11/29/2022 HISTORY: Pain Of Right Humerus M89.8X2 FINDINGS: BONES:Complex proximal humerus fracture again observed with apex anterior lateral angulation. The glenohumeral joint is intact without dislocation. Acromioclavicular joint is intact. SOFT TISSUES:Negative. No visible soft tissue swelling. EFFUSION:None visible. OTHER: Negative. XR/XR humerus RT IMPRESSION: Stable complex angulated proximal humerus fracture Electronically authenticated by: ANNA EUGENE Date: 12/07/2022 07:45
== END 2022-12-06 10:55 | disposition home or self-care (01) ==
LOC: RAD 10:54
PROVIDERS: Visit Provider Orthopaedic Surgery
DX: M89.8X2 Other specified disorders of bone, upper arm (principal); S42.201A Unspecified fracture of upper end of right humerus, initial encounter for closed fracture
CPT/HCPCS: 73060

== ENCOUNTER 2022-12-13 10:42 | Outpatient (OUT) | payer MEDICARE, SELFPAY ==
--- NOTE | 2022-12-13 10:44 | XR_ITS ---
[address] [address] Patient Name: ALESSANDRA LECHUGA MRN: [id number] date: 1955 Sex: M Assigned Patient Location: [facility] Current Patient Location: [facility] Accession/Order Number: [id number] Exam Date: 12/13/2022 10:50 Report Date: 12/13/2022 12:59 At the request of: KATE RYAN Procedure: XR shoulder RT min 2V EXAM: XR shoulder RT min 2V HISTORY: Closed Fracture Of Proximal End Of Right Humerus S42.294A COMPARISON: 11/29/2022 TECHNIQUE: 3 views Findings/impression: No significant change from the prior exam. Redemonstration of comminuted fracture of the proximal humerus with intra-articular extension. Mild degenerative changes of the AC joint. Electronically authenticated by: TANVIR CONNOR Date: 12/13/2022 12:59
== END 2022-12-13 10:43 | disposition home or self-care (01) ==
LOC: RAD 10:43
PROVIDERS: Visit Provider Orthopaedic Surgery
DX: S42.294A Other nondisplaced fracture of upper end of right humerus, initial encounter for closed fracture (principal)
CPT/HCPCS: 73030

== ENCOUNTER 2023-01-03 12:01 | Outpatient (OUT) | payer MEDICARE, SELFPAY ==
[2023-01-03 13:13] LABS: Anion Gap 8.7; BUN Creatinine Ratio 24.4; Carbon Dioxide 36.9 mmol/L (21.0-32.0); Chloride 100 mmol/L (98-107); Estimated GFR (African America >60 (>=60); Estimated GFR (Non-African Ame >60 (>=60); Glucose 72 mg/dL (74-106); Potassium 3.6 mmol/L (3.5-5.1); Sodium 142 mmol/L (136-145)
[2023-01-03 13:51] LABS: Percent Iron Saturation 19.7 %
[2023-01-04 04:09] LABS: Transferrin 319 mg/dL (177-329)
== END 2023-01-03 12:02 | disposition home or self-care (01) ==
LOC: LAB 12:02
PROVIDERS: PCP Internal Medicine; Visit Provider Internal Medicine
DX: D53.9 Nutritional anemia, unspecified (principal); E87.6 Hypokalemia
CPT/HCPCS: 36415; 80048; 82607; 82728; 82746; 83540; 83550; 84466

== ENCOUNTER 2023-01-10 10:16 | Outpatient (OUT) | payer MEDICARE, SELFPAY ==
--- NOTE | 2023-01-10 10:20 | XR_ITS ---
The [address] [address] Patient Name: ALESSANDRA LECHUGA MRN: [id number] date: 1955 Sex: M Assigned Patient Location: [facility] Current Patient Location: [facility] Accession/Order Number: [id number] Exam Date: 01/10/2023 10:22 Report Date: 01/10/2023 12:52 At the request of: KATE RYAN Procedure: XR shoulder RT min 2V EXAM: XR shoulder RT min 2V HISTORY: Nondisplaced Fracture Of Right Humerus S42.294A COMPARISON: This study was compared to the prior x-ray dated 11/29/2022 and 11/07/1922 There is comminuted fractures of the surgical neck of the right humerus. No significant callus formation. No glenohumeral joint dislocation is noted. Mild degenerative changes of the AC joint is noted. There is no new fracture or dislocation. No rib fracture is noted. The visualized portion of the lungs is unremarkable. There is a partial visualized wires of the cardiac device. No significant soft tissue abnormality is noted. XR/XR shoulder RT min 2V IMPRESSION: No significant change in the comminuted fracture of the right humeral surgical neck. Electronically authenticated by: YOSI VALVERDE Date: 01/10/2023 12:52
--- OUTSIDE RECORDS SUMMARY | 2023-02-15 19:12 | XMS_ITS | CCD ---
Author Name Unknown Address [address] [place] [address] Organization [facility] Care Team Providers Care Digital Analyst Name Role Phone REQUEST, NONE LISTED Primary Care Unavaila ble ALGHOTHANI, MOHAMAD Admitting Unavailable ALGHOTHANI, MOHAMAD Attending Unavailable ELEAZAR, DR KATE Zacarias Consulting Unavailable SAMSA, MELITON Attending Unavailable REQUEST, NONE LISTED Primary Care Unavaila ble SAMSA, MELITON Admitting Unavailable SAMSA, MELITON Consulting Unavailable ALGHOTHANI, MOHAMAD Consulting Unavailable REQUEST, NONE LISTED Primary Care Unavaila ble ALGHOTHANI, MOHAMAD Admitting Unavailable ALGHOTHANI, MOHAMAD Attending Unavailable SHAIKH Rasta ALLEN Procedure Practitioner Unavaila ble MO, DR RODRIGUEZ Admitting Unavailable HOY, DR RODRIGUEZ Attending Unavailable MO, DR RODRIGUEZ Consulting Unavailable REQUEST, NONE LISTED Primary Care Unavaila ble CAROLYNN, DR JOVANI Breaux Consulting Unavailable JABIER, DR ANNA Durán Consulting Unavailable ELEAZAR, DR KATE Zacarias Consulting Unavailable FAY DOMINGUEZ Consulting Unavailable YAIRIS DIXON Consulting Unavailable SAMSA, MELITON Consulting Unavailable SHAIKH Rasta ALLEN Consulting Unavailable ANA MARIA BORJA Consulting Unavailable ALGHOTHANI, MOHAMAD Consulting Unavailable QIANA MUNROE Attending Unavailable MD Iris Holliday Emergency Provider NO FAMILY, PHYSICIAN Primary Care Provider Unava ilable DO Iris Lassiter Admit Provider [phone] DO Iris Lassiter Attending Provider [phone] Asaad, Imad Unavailable None, No PCP Unavailable Unavailable Unavailable Unavailable MD Jaziel Gomez Attending Provider MD Jaguar Allen Primary Care Provider Judy Asif Attending Unavailable Judy Asif Referring Unavailable Judy Asif Attending Unavailable Yefri, Judy Referring Unavailable McGuinn II, Dr. Jaziel Ramirez Attending Unavailable McGuinn II, Dr. Jaziel Ramirez Referring Unavailable McGuinn II, Dr. Jaziel Ramirez Attending Unavailable Joshuauinn II, Dr. Jaziel Ramirez Attending Unavailable MD Tiffany [facility] Primary Care Provider [phone] MD Jaziel Gomez Attending Provider Jaziel Gomez Admitting Unavail able Jaziel Gomez Attending Unavail able Tiffany Montesinos Primary Care Unavailable Shaikh Allen Primary Care Unavailable Jaziel Gomez Attending Unavail able Jaziel Gomez Admitting Unavail able NO FAMILY, PHYSICIAN Primary Care Unavailable Iris Lassiter Admitting Unavailable Elvis Villarreal Attending Unavailab Marylu Weiss Consulting Unavailable Jordan Lilly Consulting Unavailable Eddie Pereira Consulting UnavailRan Sibley Consulting Unavailable Bradford Tucker Consulting UnavailMaryuri Hurley Consulting Unavailable Kurt Ann Consulting Unavailable Jason Anne Consulting Unavailable Dell Sandoval Consulting Unavailable Marissa Barlow Consulting Unavailable Kentrell Garcia Consulting Unavailable Jorge A Jimenez Consulting Unavailable Jaziel Gomez Consulting Unavail able Issa Love Consulting Unavailable Humza Brown Consulting Unavailab Judy Kingston Consulting Unavailable Shanti Watson Consulting Unavailable Marilin Chavez Consulting Unavailab Denis Quiroga Consulting Unavailable Shala Palencia Consulting Unavailable Rocio Balderrama Consulting Unavailable Krunal Urbina Consulting UnavailAnna Aleman Consulting Unavailable Fox Forbes Consulting Unavailable AhDickson tobar Consulting Unavailable Jose Farooq Consulting Unavailable Sheila Chanel Consulting Unavailable Jevon Burgos Consulting Unavailable Asaad, Imad Consulting Unavailable Hector Qureshi Consulting Unavailable Kulwant Cartwright Consulting Unavailable Delia Mtz Consulting Unavailable Allergies Allergy Classification Reported Allergen(s) Allergy Type Date of Onset Reaction(s) Facility (2 sources) Codeine; Translations: [CODEINE] Drug Allergy 11-05-[address] [facility] Repository (4 sources) Codeine; Translations: [Codeine Derivatives] Drug Allergy Unknown [facility] Other (1 source) Codeine Drug Allergy 07-10-2022 [facility] Repository Medications Current Medications Medication Drug Class(es) Dates Sig (Normalized) Sig (Original) albuterol 0.833 mg/ml / ipratropium bromide 0.167 mg/ml inhalation solution (3 sources) Anticholinergic, beta2-Adrenergic Agonist Start: 07-19-2022 take 1 mL by inhalation every six hours Ipratropium-Albut markie Active 3 ML INHALATION Q6H 180 July 18, 2022 11:00pm take 3 mL by inhalat ion every six hours as needed Ipratropium-Albuterol 0.5-2.5 (3) MG/3ML 3 mL as needed Inhalation every 6 hrs Active clindamycin 300 mg oral capsule (2 sources) Lincosamide Antibacterial Start: 07-16-2022 take 600 mg by mouth every eight hours Clindamycin Hcl Active 600 MG PO Every 8 hours 12 July 15, 2022 11:00pm clopidogrel 75 mg oral tablet (5 sources) P2Y12 Platelet Inhibitor Start: 07-10-2022 take 1 tablet by mouth once daily Clopidogrel (Plavix) 75 mg Tablet Active 75 MG PO Daily July 09, 2022 11:00pm dofetilide 0.25 mg oral capsule (7 sources) Antiarrhythmic Start: 07-19-2022 take 250 ug by mouth twice daily Dofetilide Active 250 MCG PO Twice daily 60 July 18, 2022 11:00pm take 1 capsule by mo [facility] every twelve hours Dofetilide 250 MCG 1 capsule Orally Twic e a day Active furosemide 20 mg oral tablet (7 sources) Loop Diuretic Start: 07-19-2022 take 20 mg by mouth once daily Furosemide Active 20 MG PO Daily at 0800 30 July 18, 2022 11:00pm omeprazole 40 mg delayed release oral capsule (10 sources) Proton Pump Inhibitor Start: 07-10-2022 End: 07-19-2022 take 40 mg by mouth once daily Omeprazole Active 40 MG PO Daily July 19, 2022 12:18pm sertraline 25 mg oral tablet (7 sources) Serotonin Reuptake Inhibitor Start: 07-19-2022 take 25 mg by mouth once daily in the evening Sertraline Active 25 MG PO Every evening 30 July 18, 2022 11:00pm tiotropium 0.018 mg inhalation powder (6 sources) Anticholinergic Start: 07-19-2022 take 1 capsule by inhalation once daily Tiotropium [place] (Spiriva With Handihaler) 18 mcg capsule, w/inhalation device Active 1 CAP INHALATION Daily 60 July 18, 2022 11:00pm puncture 1 cap using device; one dose = 2 inhalations take 1 capsule by inhalation onc e daily Spiriva HandiHaler 18 MCG 1 capsule by inhaling the contents of the capsule using the HandiHaler device Inhalation Once a day Active Completed/Discontinued Medications Medication Drug Class(es) Dates Sig (Normalized) Sig (Original) albuterol 0.83 mg/ml inhalation solution (3 sources) beta2-Adrenergic Agonist Albuterol Sulfate (2.5 MG/3ML) 0.083% Inhalation Nebulization Solution USE 1 UNIT DOSE EVERY 4-6 HOURS NEEDED FOR WHEEZING . Quantity: 0 Refills: 0 Ordered: 23-Jul-2022 DO Active apixaban 5 mg oral tablet (7 sources) Factor Xa Inhibitor Start: 10-25-2022 take 1 tablet by mouth twice daily Eliquis 5 MG Oral Tablet Take 1 tablet twice daily Quantity: 60 Refills: 11 Ordered: 25-Oct-2022 Judy Torres Start : 25-Oct-2022 Active Start: 07-10-2022 take 1 tablet by rebekah th once daily Apixaban (Eliquis) 5 mg tablet Active 5 MG PO Daily July 09, 2022 11:00pm take 1 tablet by rebekah th twice daily Eliquis 5 MG Oral Tablet Take 1 tablet twice daily Quantity: 90 Refills: 0 Ordered: 23-Jul-2022 DO Active digoxin 0.125 mg oral tablet (3 sources) Cardiac Glycoside Start: 07-10-2022 End: 07-19-2022 take 125 ug by mouth once daily Digoxin Discontinued 125 MCG PO Daily July 09, 2022 11:00pm July 19, 2022 2:04pm 24 hr dilTIAZem hydrochloride 180 mg extended release oral capsule (3 sources) Calcium Channel Erica Start: 07-10-2022 End: 07-19-2022 take 180 mg by mouth once daily Diltiazem Hcl Discontinued 180 MG PO Daily July 09, 2022 11:00pm July 19, 2022 2:04pm 24 hr metoprolol succinate 25 mg extended release oral tablet (6 sources) beta-Adrenergic Erica Start: 10-25-2022 take 1 tablet by mouth once daily Metoprolol Succinate ER 25 MG Oral Tablet Extended Release 24 Hour TAKE 1 TABLET DAILY. Quantity: 30 Refills: 6 Ordered: 25-Oct-2022 Bakari Asif COMMUNITY AMBASSADOR-SHIPPING CLERKJudy Start : 25-Oct-2022 Active new start Start: 07-10-2022 End: 07-19-2022 take 25 mg by mouth once daily Metoprolol Tartrate Dis continued 25 MG PO Daily July 09, 2022 11:00pm July 19, 2022 2:04pm Problems Active Problems Problem Classification Problem Date Documented Da te Episodic/Chronic Cardiac dysrhythmias (20 sources) Paroxysmal atrial fibrillation; Translations: [Unspecified atrial fibrillation] Onset: 07-16-2021 Chronic Chronic obstructive pulmonary disease and bronchiectasis (6 sources) Centrilobular emphysema; Translations: [Chronic obstructive lung disease] Onset: 08-10-2021 07-11-2022 Chronic Chronic ulcer of skin (1 source) Non-pressure chronic ulcer of skin of other sites with unspecified severity; Translations: [Non-pressure chronic ulcer of skin of other sites with unspecified severity] Onset: 07-11-2022 Chronic Coagulation and hemorrhagic disorders (5 sources) Thrombocytopenia, unspecified; Translations: [Blood coagulation disorder] Onset: 08-10-2021 07-11-2022 Chronic Conduction disorders (5 sources) Unspecified right bundle-branch block; Translations: [Cardiac pacemaker in situ] Onset: 08-10-2021 Chronic Congestive heart failure; nonhypertensive (3 sources) Acute combined systolic (congestive) and diastolic (congestive) heart failure; Translations: [Chronic diastolic (congestive) heart failure] Onset: 08-10-2021 Chronic Deficiency and other anemia (3 sources) Anemia; Translations: [Anemia, unspecified] 07-12-2022 Episodic Disorders of lipid metabolism (1 source) Hyperlipidemia, unspecified; Translations: [HYPERLIPIDEMIA UNSPECIFIED] Onset: 08-10-2021 Chronic Fluid and electrolyte disorders (5 sources) Hypo-osmolality and hyponatremia; Translations: [Lactic acidosis] Onset: 08-10-2021 07-10-2022 Episodic Mood disorders (2 sources) Depressive disorder; Translations: [Depression] 07-18-2022 Chronic Mood disorders (1 source) Mood disorders; Translations: [Depression, unspecified] Onset: 07-11-2022 Other aftercare (6 sources) Drug therapy finding; Translations: [Long-term (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 of anticoagulants] Episodic Other circulatory disease (3 sources) Low blood pressure; Translations: [Hypotension, unspecified] 07-10-2022 Episodic Other circulatory disease (4 sources) History of sick sinus syndrome; Translations: [Personal history of other diseases of circulatory system] Episodic Other circulatory disease (2 sources) H/O: atrial fibrillation; Translations: [Personal history of other diseases of the circulatory system] 07-12-2022 Episodic Other diseases of kidney and ureters (3 sources) Renal impairment; Translations: [Disorder of kidney and ureter, unspecified] 07-10-2022 Episodic Other diseases of kidney and ureters (1 source) Disorder of kidney and ureter, unspecified; Translations: [Unspecified disorder of kidney and ureter] 07-10-2022 Episodic Other diseases of veins and lymphatics (1 source) Other specified noninfective disorders of lymphatic vessels and lymph nodes; Translations: [OTH SPEC NONINFECT D/O LYM VES NODE] Onset: 08-10-2021 Chronic Other disorders of stomach and duodenum (2 sources) Upset stomach; Translations: [Functional dyspepsia] 07-19-2022 Episodic Other hematologic conditions (3 sources) Raised cardiac enzyme or marker; Translations: [Other specified abnormalities of plasma proteins] 07-10-2022 Episodic Other liver diseases (2 sources) Elevated liver enzymes level; Translations: [Abnormal levels of other serum enzymes] 07-11-2022 Episodic Other liver diseases (2 sources) Ischemic hepatitis; Translations: [Acute and subacute hepatic failure without coma] 07-11-2022 Episodic Other lower respiratory disease (5 sources) Solitary pulmonary nodule; Translations: [SOLITARY PULMONARY NODULE] Onset: 08-10-2021 Episodic Other lower respiratory disease (3 sources) Hypoxemia; Translations: [Hypoxemia] 07-10-2022 Episodic Other lower respiratory disease (1 source) Hypoxemia; Translations: [Hypoxemia] 07-10-2022 Episodic Other nutritional; endocrine; and metabolic disorders (1 source) Hypocalcemia; Translations: [HYPOCALCEMIA] Onset: 08-10-2021 Chronic Other nutritional; endocrine; and metabolic disorders (1 source) Hypomagnesemia; Translations: [HYPOMAGNESEMIA] Onset: 08-10-2021 Chronic Other screening for suspected conditions (not mental disorders or infectious disease) (3 sources) Echocardiogram abnormal; Translations: [Nonspecific (abnormal) findings on radiological and other examination of other intrathoracic organs] Episodic Peripheral and visceral atherosclerosis (3 sources) Peripheral vascular disease, unspecified; Translations: [PERIPHERAL VASCULAR DISEASE UNS] Onset: 08-10-2021 Chronic Pulmonary heart disease (1 source) Pulmonary hypertension, unspecified; Translations: [PULMONARY HYPERTENSION UNSPECIFIED] Onset: 08-10-2021 Chronic Residual codes; unclassified (4 sources) Body mass index 20-24 - normal; Translations: [Body Mass Index between 19-24, adult] Episodic Respiratory failure; insufficiency; arrest (adult) (7 sources) Acute and chronic respiratory failure with hypercapnia; Translations: [Acute and chronic respiratory failure with hypoxia] Onset: 08-10-2021 07-11-2022 Chronic Screening and history of mental health and substance abuse codes (3 sources) Ex-smoker; Translations: [Personal history of tobacco use] Episodic Substance-related disorders (3 sources) Nicotine dependence, cigarettes, uncomplicated; Translations: [Nicotine dependence, unspecified, uncomplicated] Onset: 08-10-2021 Chronic Unclassified (1 source) CONTACT W/AND (SUSP) EXPOS COVID-19; Translations: [CONTACT W/AND (SUSP) EXPOS COVID-19] Onset: 08-10-2021 Unclassified (1 source) Encounter for checking and testing of cardiac pacemaker pulse generator [battery]; Translations: [Encounter for checking and testing of cardiac pacemaker pulse generator [battery]] Onset: 01-25-2023 Unclassified (1 source) Acidosis, unspecified; Translations: [Acidosis, unspecified] Onset: 07-11-2022 Past or Other Problems Problem Classification Problem Date Documented Date Episodic/Chronic Administrative/social admission (3 sources) Advance directive discussed with patient; Translations: [Other specified counseling] Onset: 07-11-2022 07-15-2022 Episodic Cardiac dysrhythmias (5 sources) AV-junctional (lorie) bradycardia; Translations: [Bradycardia, unspecified] Onset: 07-11-2022 07-10-2022 Episodic Deficiency and other anemia (1 source) Iron deficiency anemia, unspecified; Translations: [IRON DEFICIENCY ANEMIA UNSPECIFIED] Onset: 08-10-2021 Episodic Deficiency and other anemia (1 source) Folate deficiency anemia, unspecified; Translations: [FOLATE DEFICIENCY ANEMIA UNS] Onset: 08-10-2021 Episodic Deficiency and other anemia (2 sources) Anemia, unspecified; Translations: [Anemia, unspecified] Onset: 07-11-2022 Episodic Fever of unknown origin (1 source) Fever, unspecified; Translations: [FEVER UNSPECIFIED] Onset: 08-10-2021 Episodic Nutritional deficiencies (3 sources) Iron deficiency; Translations: [Iron deficiency] Onset: 07-11-2022 07-13-2022 Episodic Other aftercare (1 source) senior living (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 of aspirin; Translations: [RETIREMENT CURRENT USE OF ASPIRIN] Onset: 08-10-2021 Episodic Other aftercare (1 source) intermediate card tender (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 of antithrombotics/antip latelets; Translations: [RETIREMENT ANTITHROMBOT/ANTIPLAT LETS] Onset: 08-10-2021 Episodic Other circulatory disease (2 sources) Hypotension, unspecified; Translations: [Hypotension, unspecified] Onset: 07-11-2022 07-10-2022 Episodic Other circulatory disease (1 source) Personal history of other diseases of the circulatory system; Translations: [Personal history of other diseases of the circulatory system] Onset: 07-11-2022 Episodic Other disorders of stomach and duodenum (1 source) Functional dyspepsia; Translations: [Functional dyspepsia] Onset: 07-11-2022 Episodic Other hematologic conditions (2 sources) Other specified abnormalities of plasma proteins; Translations: [Other abnormal blood chemistry] Onset: 07-11-2022 07-10-2022 Episodic Other liver diseases (1 source) Acute and subacute hepatic failure without coma; Translations: [Acute and subacute hepatic failure without coma] Onset: 07-11-2022 Episodic Other liver diseases (1 source) Abnormal levels of other serum enzymes; Translations: [Abnormal levels of other serum enzymes] Onset: 07-11-2022 Episodic Pneumonia (except that caused by tuberculosis or sexually transmitted disease) (1 source) Pneumonia, unspecified organism; Translations: [PNEUMONIA UNSPECIFIED ORGANISM] Onset: 08-10-2021 Episodic Residual codes; unclassified (1 source) Localized edema; Translations: [LOCALIZED EDEMA] Onset: 08-10-2021 Episodic Respiratory failure; insufficiency; arrest (adult) (1 source) Acute respiratory failure with hypoxia; Translations: [ACUTE RESPIRATORY FAIL W/HYPOXIA] Onset: 08-10-2021 Episodic Septicemia (except in labor) (1 source) Sepsis due to Methicillin susceptible Staphylococcus aureus; Translations: [SEPSIS D/T METHICILLIN UMM STAPH] Onset: 08-10-2021 Episodic Results Test Name Value Interpretation Reference Range Facil ity Office Visit (Cardiology)on 11-10-2022 Follow-up visit Diagnoses/Problems Assessed Paroxysmal atrial fibrillation (427.31) (I48.0) Anticoagulated (V58.61) (Z79.01) High risk medications (not anticoagulants) long-term use (V58.69) (Z79.899) Echocardiogram abnormal (793.2) (R93.1) Body mass index (BMI) of 23.0 to 23.9 in adult (V85.1) (Z68.23) Orders Paroxysmal atrial fibrillation Renew: Dofetilide 250 MCG Oral Capsule; TAKE 1 CAPSULE TWICE DAILY Renew: Furosemide 20 MG Oral Tablet; TAKE 1 TABLET BY MOUTH DAILY Patient Instructions Please bring all medicines, vitamins, and herbal supplements with you when you come to the office. Prescriptions will not be filled unless you are compliant with your follow up appointments or have a follow up appointment scheduled as per instruction of your physician. Refills should be requested at the time of your visit. PLAN: Through informed decision making process incorporating patients unique circumstances, the following treatment plan will be initiated: 1. Prescription drug management of cardiovascular medication for efficacy, adherence to treatment, side effect assessment and polypharmacy. Current treatment clinically warranted and to continue without modifications. 2. Return for follow-up; in the interim, contact the office if new symptoms arise. Dr. Gomez as scheduled Chief Complaint 2 month f/u: 'doing fine' JAIME LECHUGA is being seen for a 2 week follow-up of atrial fibrillation. Patient presents to the office ambulatory with steady gait. Last evaluated in clinic by myself approximately 2 weeks ago. At that time he was noted to have A-fib with RVR, was completely asymptomatic. After sitting in the office heart rate went down to the 90s. He had verbalize compliance with dofetilide dosage. I initiated Eliquis 5 mg twice daily with repeat hemoglobin 11.8. Discontinued Plavix due to initiation of DOAC, recent anemia during June 2022 hospitalization (on board d/t remote iliac stenting) And added low-dose metoprolol. He has been compliant with changes. He presents to the office today reports 1 brief episode of atrial fibrillation, this was caught on his pulse ox machine. Otherwise he remains very asymptomatic in atrial fibrillation (even in office 2 weeks ago heart rate 144 without complaints). He does have a remote monitor at home for permanent pacemaker. He is fairly sedentary by choice, has been utilizing oxygen since June 2022. He did ambulate in from the parking lot without complaints. He denies any type of exertional chest pain, no dyspnea on exertion. No evidence of orthopnea or PND. EKG in office today normal sinus rhythm at 77 on dofetilide 250 mcg twice daily with QTc 468, CR 0.55 CHADS VASc 2 tolerating full dose Eliquis denies any type of bleeding diatheses. SJM 2272 dual chamber PPM: Sep 2022 device interrogation June 2022 Echo EF 65-70%, RV mildly dilated with severe hypokinesis of the distal segment. Is a former smoker (quit within 3 months) with COPD and hypoxia. No evidence of cor pulmonale. Due to PAD should be on a statin but June 2022 AST 182, ALT 480. I had ordered repeat BMP at last office visit but only CBC results were sent - will request results. Reports remote stress testing. Current daily activity less than 4 METS by choice. June 2022 hospitalization Type II NSTEMI. No exertional symptoms. Clinically stable. History of Present Illness The patient presents with paroxysmal atrial fibrillation. The treatment strategy for this patient is rhythm control. He states his atrial fibrillation has been stable since the last visit. Symptoms: denies palpitations, denies chest pain, stable exercise intolerance, stable dyspnea on exertion and denies dizziness. Associated symptoms include no syncope. Risks: no increased risk for falling. 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 Eliquis 5 MG Oral TabletTake 1 tablet twice daily Furosemide 20 MG Oral TabletTAKE 1 TABLET BY MOUTH DAILY Metoprolol Succinate ER 25 MG Oral Tablet Extended Release 24 HourTAKE 1 TABLET DAILY. Omeprazole 40 MG Oral Capsule Delayed ReleaseTAKE 1 CAPSULE Daily Sertraline HCl - 25 MG Oral TabletTAKE 1 TABLET DAILY. Allergies Medication Codeine Derivatives Recorded By: Christal Mccoy; 10/25/2022 10:07:44 AM Social History Problems Former smoker (V15.82) (Z87.891) No caffeine use No illicit drug use Occasional alcohol use 3-4 beers weekly Review of Systems Constitutional: not feeling tired. Cardiovascular: no chest pain, no palpitations and no lower extremity edema. Respiratory: no shortness of breath during exertion, no orthopnea and no PND. Vitals Vital Signs Recorded: 10Nov2022 12:43PM Heart Rate77, Apical [id number], RUE, Sitting Diasto (more content not included)... Normal Flourish Prenatal Tobacco Screening.on 023 Adult depression screening assessment No [facility] [employer] 250 DO Work Phone: Fall risk assessment a) No falls within the last year [facility] [employer] 250 DO Work Phone: Tobacco use status [facility] b) No [facility] [employer] 250 DO Work Phone: Office Visit (Cardiology)on 10-25-2022 Follow-up visit Diagnoses/Problems Assessed Paroxysmal atrial fibrillation (427.31) (I48.0) Anticoagulated (V58.61) (Z79.01) High risk medications (not anticoagulants) long-term use (V58.69) (Z79.899) Cardiac pacemaker (V45.01) (Z95.0) Echocardiogram abnormal (793.2) (R93.1) Body mass index (BMI) of 22.0 to 22.9 in adult (V85.1) (Z68.22) Orders Anticoagulated Complete Blood Count; Status:Active; Requested for:08Nov2022; Anticoagulated, Paroxysmal atrial fibrillation Start: Eliquis 5 MG Oral Tablet; Take 1 tablet twice daily Basic Metabolic Panel; Status:Active; Requested for:[id number]; Start: Metoprolol Succinate ER 25 MG Oral Tablet Extended Release 24 Hour (Toprol XL); TAKE 1 TABLET DAILY Complete Blood Count; Status:Active; Requested for:[id number]; TSH WITH REFLEX TO FREE T4 IF ABNORMAL; Status:Active; Requested for:[id number]; Unlinked Stop: Clopidogrel Bisulfate 75 MG Oral Tablet Patient Instructions Please bring all medicines, vitamins, and herbal supplements with you when you come to the office. Prescriptions will not be filled unless you are compliant with your follow up appointments or have a follow up appointment scheduled as per instruction of your physician. Refills should be requested at the time of your visit. PLAN: Through informed decision making process incorporating patients unique circumstances, the following treatment plan will be initiated: 1. Prescription drug management of cardiovascular medication for efficacy, adherence to treatment, side effect assessment and polypharmacy. Current treatment clinically warranted and to continue with following modifications: - Begin Eliquis 5mg twice daily (to reduce risk of stroke) - Hold plavix for now to reduce risk of bleeding - Begin toprol 25mg daily to help with atrial fib and slow down heart rate 2. Labs CBC, Chem6, TSH CBC in 2 weeks 3. Return for follow-up; in the interim, contact the office if new symptoms arise. CONTACT CLERK in 2 weeks Chief Complaint 3 month f/u: 'seem to be doing ok' JAIME LECHUGA is being seen for a 15 week follow-up of post pcm. Patient presents to the office ambulatory with steady gait. This is initial in clinic follow-up at [facility]. Patient reports remote history of iliac stenting in [place] and has been maintained on Plavix for 7 years, follows with vascular in [place]. Reports being hospitalized last year in [place] due to atrial fibrillation and started on Eliquis at that time, no antiarrhythmics. June 2022 presented to [facility] due to weakness, seen in consult by Dr. 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 On July 16, 2022 uneventful implant dual-chamber permanent pacemaker. He was initiated on dofetilide due to paroxysmal atrial fibrillation. He also presented with a hemoglobin 7.1, received 2 units of packed red blood cell. At time of discharge Eliquis and Plavix were placed on hold. Reports being seen outpatient by GI with no plans for evaluation. Reports repeat labs approximately [address] [facility]. He was seen outpatient by vascular and they resumed his Plavix approximately 2 weeks ago. He follows routinely with pulmonary, has been on oxygen since discharge. No increased use of rescue inhaler. He reports being fairly sedentary by choice. He ambulated in from the parking lot without complaints. Overall reports doing just fine . 3-month post device chest x-ray and device interrogation reviewed. Wound check was completed by medical staff, left prepectoral site examined today and is unremarkable. He presents to the office today where after ambulating in from the parking lot EKG is A-fib with RVR at 144. He is completely asymptomatic. Most recent device interrogation showed 3% mode switching -with longest episode 1 hour and 6 minutes. He follows pulse on a pulse ox machine routinely at home and is usually in the 80s. After sitting in the office approximately 10 minutes heart rate is down to the 90s. He has been compliant with dose of dofetilide and and I have verified medication bottle. QTc in office 458. CHADS VASc 2 (age, PAD). Reviewed need for cardioembolic protection due to atrial fibrillation. He denies any type of melena, no hematochezia. Will resume Eliquis 5 mg twice daily. Obtain most recent labs and repeat CBC after 2 weeks of anticoagulation. Briefly introduced left atrial appendage occlusive device as an additional treatment option. 3% mode switching on dofetilide 250 mcg twice daily. Remains asymptomatic even in office with brief A-fib with RVR. We will add low-dose beta-erica and continue to follow remote monitoring for efficacy. His vascular procedure was greater than 7 years ago. To reduce bleeding risk we will discontinue Plavix at this time. Recent echo with LVEF 65 to 70%. RV mildly dilated with severe hypokinesis of the distal segment. He denies any prior type of ischemic work-up. We will arrange ischemic testing once assure stability with anticoagu (more content not included)... Normal [facility] Prenatal Tobacco Screening.on 023 Adult depression screening assessment No [facility] Virgil cordova-Pj [address] DO Work Phone: Fall risk assessment a) No falls within the last year [facility] Heart- [address]j [address] DO Work Phone: Tobacco use status [facility] b) No M [facility] Heart-[address]j [address] DO Work Phone: Radiologyon 10-18-2022 XR Chest 2 Views Normal [facility] Heart-Pj [address] DO Work Phone: XR chest 2V*on 10-18-2022 XR chest 2V* [facility] [address] [place] [address] [place] [address] XRay Report Signed Patient: Jaime Lechuga MR#: [id number] : 1955 Acct:[id number] Age/Sex: 67 / M ADM Date: 10/18/22 Loc: [facility] Room: Type: [facility] Attending Dr: Jaziel Gomez MD Copies to: Jaziel Gomez MD Ordering Provider: Jaziel Gomez MD Date of Service: 10/18/22 XR/XR chest 2V*: Z95.0,Z86.79 Chest 2 views CLINICAL HISTORY: Follow-up pacemaker. COMPARISON: Chest 07/17/2022 FINDINGS: Dual-lead pacemaker device without radiographic complication. Heart is normal in size. Lungs are hyperinflated but clear. Evidence old granulomatous disease. No free air. XR/XR chest 2V* IMPRESSION: NO RADIOGRAPHIC EVIDENCE OF PACEMAKER COMPLICATION. Impression dictated by: Rasheed Carmen Jr., D.O.10/18/2022 3:35 PM Dictation Location: [place] [address] Transcribed By: [facility] 10/18/22 1535 Dictated By: Rasheed Carmen Jr, DO 10/18/22 1534 Signed By: 10/18/22 1535 Normal [facility] Basic Metabolic Panelon 06-29 Anion gap [Moles/Vol] 7.4 mmol/L Normal 6.0-15.0 [facility] Comment on above: Performed By: #### C MP, CBC #### [facility] [address] [place], [place] [id number] [facility] Calcium [Mass/Vol] 8.2 mg/dL Low 8.6-10.3 [facility] Comment on above: Performed By: #### C MP, CBC #### [facility] [address] [place] [address] [place] Chloride [Moles/Vol] 94 mmol/L Low 98-107 [facility] Comment on above: Performed By: #### C MP, CBC #### [facility] [address] [place] [address] [place] CO2 [Moles/Vol] 37.8 mmol/L High 21.0-31.0 [facility] Comment on above: Performed By: #### C MP, CBC #### [facility] [address] Creatinine [Mass/Vol] 0.50 mg/dL Low 0.70-1.30 [facility] Comment on above: Performed By: #### C MP, CBC #### [facility] [address] [place] [address] [place] Creatinine Clr Calc Pharmacy 87.88 [facility] Comment on above: Result Comment: PERF ORMED BY: [place] [address] PATHOLOGIST HEEL SEAT FILLER ABDIEL MTZ M.D. Performed By: #### C MP, CBC #### [place] [address] [place] GFR/1.73 sq M.predicted MDRD (S/P/Bld) [Vol rate/Area] mL/min/{1.73_m2} Normal [facility] Comment on above: Performed By: #### C MP, CBC #### [facility] [address] [place] [address] [place] Glucose [Mass/Vol] 96 mg/dL Normal 70-100 [facility] Comment on above: Result Comment: [place] om Glucose Reference Range is dependent on time and content of last meal. Glucose of more than 200 mg/dL in a nonstressed, ambulatory subject supports the diagnosis of Diabetes Mellitus. ADA recommended reference range Performed By: #### C MP, CBC #### [facility] [address] [place] [address] Potassium [Moles/Vol] 4.2 mmol/L Normal 3.5-5.1 [facility] Comment on above: Performed By: #### C MP, CBC #### [address] Sodium [Moles/Vol] 135 mmol/L Low 136-145 [facility] Comment on above: Performed By: #### C MP, CBC #### [address] Urea nitrogen [Mass/Vol] 9 mg/dL Normal 7-25 [facility] Comment on above: Performed By: #### C MP, CBC #### [address] Complete Blood Count Auto Di ffon 07-19-2022 Basophils (Bld) [#/Vol] 0.2 10*3/uL Normal 0.0-0.2 [facility] Comment on above: Result Comment: PERF ORMED BY: [place] [address] PATHOLOGIST HEEL SEAT FILLER ABDIEL MTZ M.D. Performed By: #### C MP, CBC #### [address] Basophils/100 WBC (Bld) 1.4 % Normal . [facility] Comment on above: Performed By: #### C MP, CBC #### [address] Eosinophils (Bld) [#/Vol] 0.0 10*3/uL Normal 0.0-0.45 [facility] Comment on above: Performed By: #### C MP, CBC #### [address] Eosinophils/100 WBC (Bld) 0.0 % Normal . [facility] Comment on above: Performed By: #### C MP, CBC #### [address] Erythrocyte distribution wid th (RBC) [Ratio] 20.9 % High 12.0-14.8 [facility] Comment on above: Performed By: #### C MP, CBC #### [address] Hematocrit (Bld) [Volume fraction] 32.9 % Low 38.8-50.0 [facility] Comment on above: Performed By: #### C MP, CBC #### [address] Hemoglobin (Bld) [Mass/Vol] 10.1 g/dL Low 13.0-17. 0 [facility] Comment on above: Performed By: #### C MP, CBC #### [address] Lymphocytes (Bld) [#/Vol] 1.5 10*3/uL Normal 1.00-4.8 [facility] Comment on above: Performed By: #### C MP, CBC #### [address] Lymphocytes/100 WBC (Bld) 12.6 % Normal . [facility] Comment on above: Performed By: #### C MP, CBC #### [address] MCH (RBC) [Entitic mass] 25.3 pg Low 27.5-35.2 [facility] Comment on above: Performed By: #### C MP, CBC #### [address] MCV (RBC) [Entitic vol] 82.5 fL Low 83.5-[address] [facility] Comment on above: Performed By: #### C MP, CBC #### [address] Mean Corpuscular HGB Conc 30.7 g/dL Low 32.5-35.6 [facility] Comment on above: Performed By: #### C MP, CBC #### [address] Monocytes (Bld) [#/Vol] 1.2 10*3/uL High 0.0-0.8 [facility] Comment on above: Performed By: #### C MP, CBC #### [facility] [address] [place] [address] [place] Monocytes/100 WBC (Bld) 9.8 % Normal . [facility] Comment on above: Performed By: #### C MP, CBC #### [facility] [address] Neutrophils (Bld) [#/Vol] 9.2 10*3/uL High 1.8-7.7 [facility] Comment on above: Performed By: #### C MP, CBC #### [facility] [address] Neutrophils/100 WBC (Bld) 76.2 % Normal . [facility] Comment on above: Performed By: #### C MP, CBC #### [facility] [address] NRBC% 0.0 /100{WBC} Normal 0-0.5 [facility] Comment on above: Performed By: #### C MP, CBC #### [facility] [address] Platelet mean volume (Bld) [Entitic vol] 8.5 fL Normal 6.6-10.1 [facility] Comment on above: Performed By: #### C MP, CBC #### [facility] [address] [place] [address] [place] Platelets (Bld) [#/Vol] 152 10*3/uL Normal 150-450 [facility] Comment on above: Performed By: #### C MP, CBC #### [facility] [address] [place] [address] [place] RBC (Bld) [#/Vol] 3.99 10*6/uL Normal 3.90-5.60 [facility] Comment on above: Performed By: #### C MP, CBC #### [facility] [address] [place] [address] [place] WBC (Bld) [#/Vol] 12.1 10*3/uL High 4.1-10.5 [facility] Comment on above: Performed By: #### C MP, CBC #### [facility] [address] [place] [address] [facility] ECG 12 lead ECGon 07-19-2022 ECG 12 lead ECG [facility] [address] [place] [address] [place] [address] Electrocardiograph Report Signed Patient: Jaime Lechuga MR#: [id number] : 1955 Acct:[id number] Age/Sex: 66 / M ADM Date: 07/10/22 Loc: Room: [address] [place] [address] Type: DIS IN Attending Dr: Elvis Villarreal MD Ordering Provider: Jaziel Gomez MD Date of Service: 07/19/22 ECG/ECG 12 lead ECG: afib Copies to: Test Reason : Blood Pressure : / mmHG Vent. Rate : 106 BPM Atrial Rate : 106 BPM P-R Int : 136 ms QRS Dur : 108 ms QT Int : 380 ms P-R-T Axes : 088 112 020 degrees QTc Int : 504 ms Demand pacemaker, interpretation is based on intrinsic rhythm Sinus tachycardia with occasional and consecutive premature ventricular complexes Possible Left atrial enlargement Incomplete right bundle branch block Right ventricular hypertrophy with repolarization abnormality Nonspecific T wave abnormality Abnormal ECG When compared with ECG of 19-JUL-2022 13:34, (Unconfirmed) Electronic demand pacing is now present premature ventricular complexes are now present Confirmed by ADAIR DAI MD ([id number]) on 07/20/2022 3:13:14 PM Referred By: NO Electronically Signed By:ADAIR DAI MD Transcribed By: MUS Signed By Adair Dai MD 1513 Normal [facility] Basic Metabolic Panelon 06-29 Anion gap [Moles/Vol] 8.2 mmol/L Normal 6.0-15.0 [facility] Comment on above: Performed By: #### C SAEID, CBC #### [facility] [address] [place] [id number] [facility] Calcium [Mass/Vol] 8.0 mg/dL Low 8.6-10.3 [facility] Comment on above: Performed By: #### C MP, CBC #### [facility] [address] [place] [address] [place] Chloride [Moles/Vol] 97 mmol/L Low 98-107 [facility] Comment on above: Performed By: #### C MP, CBC #### [facility] [address] [place] [address] [place] CO2 [Moles/Vol] 37.3 mmol/L High 21.0-31.0 [facility] Comment on above: Performed By: #### C MP, CBC #### [facility] [address] Creatinine [Mass/Vol] 0.48 mg/dL Low 0.70-1.30 [facility] Comment on above: Performed By: #### C MP, CBC #### [facility] [address] [place] [address] [place] Creatinine Clr Calc Pharmacy 87.88 [facility] Comment on above: Result Comment: PERF ORMED BY: [place] [address] PATHOLOGIST HEEL SEAT FILLER ABDIEL MTZ M.D. Performed By: #### C MP, CBC #### [facility] [address] [place] [address] [place] GFR/1.73 sq M.predicted MDRD (S/P/Bld) [Vol rate/Area] mL/min/{1.73_m2} Normal [facility] Comment on above: Performed By: #### C MP, CBC #### [facility] [address] [place] [address] [place] Glucose [Mass/Vol] 94 mg/dL Normal 70-100 [facility] Comment on above: Result Comment: [place] Glucose Reference Range is dependent on time and content of last meal. Glucose of more than 200 mg/dL in a nonstressed, ambulatory subject supports the diagnosis of Diabetes Mellitus. ADA recommended reference range Performed By: #### C MP, CBC #### [facility] [address] [place] [address] Potassium [Moles/Vol] 4.5 mmol/L Normal 3.5-5.1 [facility] Comment on above: Performed By: #### C MP, CBC #### [address] Sodium [Moles/Vol] 138 mmol/L Normal 136-145 [facility] Comment on above: Performed By: #### C MP, CBC #### [address] Urea nitrogen [Mass/Vol] 12 mg/dL Normal 7-25 [facility] Comment on above: Performed By: #### C MP, CBC #### [address] Complete Blood Count Auto Di ffon 07-18-2022 Basophils (Bld) [#/Vol] 0.1 10*3/uL Normal 0.0-0.2 [facility] Comment on above: Result Comment: PERF ORMED BY: [place] [address] PATHOLOGIST HEEL SEAT FILLER ABDIEL MTZ M.D. Performed By: #### C MP, CBC #### [address] Basophils/100 WBC (Bld) 1.1 % Normal . [facility] Comment on above: Performed By: #### C MP, CBC #### [address] Eosinophils (Bld) [#/Vol] 0.0 10*3/uL Normal 0.0-0.45 [facility] Comment on above: Performed By: #### C MP, CBC #### [address] Eosinophils/100 WBC (Bld) 0.2 % Normal . [facility] Comment on above: Performed By: #### C MP, CBC #### [address] Erythrocyte distribution wid th (RBC) [Ratio] 19.3 % High 12.0-14.8 [facility] Comment on above: Performed By: #### C MP, CBC #### [facility] [address] Hematocrit (Bld) [Volume fraction] 29.6 % Low 38.8-50.0 [facility] Comment on above: Performed By: #### C MP, CBC #### [facility] [address] Hemoglobin (Bld) [Mass/Vol] 9.2 g/dL Low 13.0-17. 0 [facility] Comment on above: Performed By: #### C MP, CBC #### [address] Lymphocytes (Bld) [#/Vol] 1.5 10*3/uL Normal 1.00-4.8 [facility] Comment on above: Performed By: #### C MP, CBC #### [address] Lymphocytes/100 WBC (Bld) 16.5 % Normal . [facility] Comment on above: Performed By: #### C MP, CBC #### [address] MCH (RBC) [Entitic mass] 25.9 pg Low 27.5-35.2 [facility] Comment on above: Performed By: #### C MP, CBC #### [address] MCV (RBC) [Entitic vol] 83.4 fL Low 83.5-[address] [facility] Comment on above: Performed By: #### C MP, CBC #### [address] Mean Corpuscular HGB Conc 31.1 g/dL Low 32.5-35.6 [facility] Comment on above: Performed By: #### C MP, CBC #### [address] Monocytes (Bld) [#/Vol] 1.1 10*3/uL High 0.0-0.8 [facility] Comment on above: Performed By: #### C MP, CBC #### [facility] [address] [place] [address] [place] Monocytes/100 WBC (Bld) 12.4 % Normal . [facility] Comment on above: Performed By: #### C MP, CBC #### [facility] [address] [place] [address] [place] Neutrophils (Bld) [#/Vol] 6.2 10*3/uL Normal 1.8-7.7 [facility] Comment on above: Performed By: #### C MP, CBC #### [facility] [address] Neutrophils/100 WBC (Bld) 69.8 % Normal . [facility] Comment on above: Performed By: #### C MP, CBC #### [facility] [address] NRBC% 0.1 /100{WBC} Normal 0-0.5 [facility] Comment on above: Performed By: #### C MP, CBC #### [facility] [address] Platelet mean volume (Bld) [Entitic vol] 8.6 fL Normal 6.6-10.1 [facility] Comment on above: Performed By: #### C MP, CBC #### [facility] [address] [place] [address] [place] Platelets (Bld) [#/Vol] 156 10*3/uL Normal 150-450 [facility] Comment on above: Performed By: #### C MP, CBC #### [facility] [address] [place] [address] [place] RBC (Bld) [#/Vol] 3.55 10*6/uL Low 3.90-5.60 [facility] Comment on above: Performed By: #### C MP, CBC #### [facility] [address] [place] [address] [place] WBC (Bld) [#/Vol] 8.8 10*3/uL Normal 4.1-10.5 [facility] Comment on above: Performed By: #### C MP, CBC #### [facility] [address] [place] [address] ECG 12 lead ECGon 07-18-2022 ECG 12 lead ECG [facility] [address] [place] [address] [place] [address] Electrocardiograph Report Signed Patient: Jaime Lechuga MR#: [id number] : 1955 Acct:[id number] Age/Sex: 66 / M ADM Date: 07/10/22 Loc: Room: [address] [place] [address] Type: DIS IN Attending Dr: Elvis Villarreal MD Ordering Provider: Iris Lassiter DO Date of Service: 07/18/22 ECG/ECG 12 lead ECG: ekg completed Copies to: Test Reason : Blood Pressure : / mmHG Vent. Rate : 102 BPM Atrial Rate : 102 BPM P-R Int : 146 ms QRS Dur : 110 ms QT Int : 364 ms P-R-T Axes : 078 085 048 degrees QTc Int : 474 ms Sinus tachycardia Right bundle branch block T wave abnormality, consider lateral ischemia Abnormal ECG When compared with ECG of 18-JUL-2022 09:00, (Unconfirmed) No significant change was found Confirmed by ADAIR DAI MD ([id number]) on 07/20/2022 3:12:50 PM Referred By: Electronically Signed By:ADAIR DAI MD Transcribed By: MUS Signed By Adair Dai MD 1512 [facility] Hepatic Panelon 07-18-2022 Albumin [Mass/Vol] 2.8 g/dL Low 3.5-5.7 [facility] Comment on above: Performed By: #### C MP, CBC #### [place] [id number] [facility] Albumin/Globulin [Mass ratio] 1.0 {ratio} [facility] Comment on above: Performed By: #### C MP, CBC #### [place] [address] [place] ALP [Catalytic activity/Vol] 129 U/L High 34-104 [facility] Comment on above: Performed By: #### C MP, CBC #### [address] ALT [Catalytic activity/Vol] 126 U/L High 7-52 [facility] Comment on above: Performed By: #### C MP, CBC #### [facility] [address] [place] [address] AST [Catalytic activity/Vol] 29 U/L Normal 13-39 [facility] Comment on above: Performed By: #### C MP, CBC #### [address] Bilirubin [Mass/Vol] 0.6 mg/dL Normal 0.3-1.0 [facility] Comment on above: Performed By: #### C MP, CBC #### [address] Bilirubin,Indirect 0.5 mg/dL Normal [facility] Comment on above: Performed By: #### C MP, CBC #### [address] Bilirubin.indirect [Mass/Vol] 0.10 mg/dL Normal 0.03-0 .18 [facility] Comment on above: Performed By: #### C MP, CBC #### [address] Globulin (S) [Mass/Vol] 2.9 g/dL Normal [facility] Comment on above: Performed By: #### C MP, CBC #### [address] Protein [Mass/Vol] 5.7 g/dL Low 6.4-8.9 [facility] Comment on above: Performed By: #### C MP, CBC #### [address] Partial Thromboplastin Timeo n 07-18-2022 aPTT Coag (Bld) [Time] 27.8 s Normal 25.1-36.5 [facility] Comment on above: Result Comment: PERF ORMED BY: [facility] [address] [place] [address] PATHOLOGIST HEEL SEAT FILLER ABDIEL MTZ M.D. Performed By: #### P TT, PT ####[place] [id number] [facility] Prothrombin Time INRon 07-18 INR Coag (PPP) [Relative time] 1.1 {INR} Normal [facility] Comment on above: Result Comment: INR Therapeutic Range A) Pre- and Peroperative OAT started two weeks before surgery. NOT HIP SURGERY: 1.5 - 2.5 HIP SURGERY: 2 - 3 B) Primary and secondary prevention of venous THROMBOSIS: 2 - 3 C) Active venous thrombosis, pulmonary embolism and prevention of recurrent venous thrombosis: 2 - 3 D) Prevention of arterial thromboembolism including patients with mechanical heart valves: 3 - 4.5 Performed By: #### P TT, PT ####[place] [id number] [facility] PT Coag (PPP) [Time] 13.0 s High 9.0-12.9 [facility] Comment on above: Performed By: #### P TT, PT ####[place] [id number] [facility] Partial Thromboplastin Timeo n 07-17-2022 aPTT Coag (Bld) [Time] 31.1 s Normal 25.1-36.5 [facility] Comment on above: Result Comment: PERF ORMED BY: [facility] [address] [place] [id number] PATHOLOGIST HEEL SEAT FILLER ABDIEL MTZ M.D. Performed By: #### P T, PTT ####[place] [id number] [facility] Prothrombin Time INRon 07-17 INR Coag (PPP) [Relative time] 1.1 {INR} Normal [facility] Comment on above: Result Comment: INR Therapeutic Range A) Pre- and Peroperative OAT started two weeks before surgery. NOT HIP SURGERY: 1.5 - 2.5 HIP SURGERY: 2 - 3 B) Primary and secondary prevention of venous THROMBOSIS: 2 - 3 C) Active venous thrombosis, pulmonary embolism and prevention of recurrent venous thrombosis: 2 - 3 D) Prevention of arterial thromboembolism including patients with mechanical heart valves: 3 - 4.5 Performed By: #### P T, PTT ####[facility] [id number] [place] [address] [facility] PT Coag (PPP) [Time] 12.8 s Normal 9.0-12.9 [facility] Comment on above: Performed By: #### P T, PTT ####[facility] [id number] [place] [address] [facility] XR chest 2V*on 07-17-2022 XR chest 2V* [facility] [address] [place] [address] [place] [address] XRay Report Signed Patient: Jaime Lechuga MR#: [id number] : 1955 Acct:[id number] Age/Sex: 66 / M ADM Date: 07/10/22 Loc: Room: [address] [place] [address] Type: ADM IN Attending Dr: Benji Gamez DO Copies to: DO Jaziel Pandey MD Ordering Provider: Jaziel Gomez MD Date of Service: 07/17/22 XR/XR chest 2V*: Rule out pneumothorax on only new implants cases in am Plain film chest 2 view HISTORY: Post pacemaker insertion COMPARISON: 07/16/2022 FINDINGS: SUPPORT DEVICES: None POSTSURGICAL CHANGES: Left cardiac device remains intact HEART: Stable PULMONARY JUSTINE: Stable MEDIASTINUM: Stable LUNGS AND PLEURA: Improving diffuse groundglass parenchymal densities. Continued residual minimal basilar parenchymal densities. No pneumothorax. BONY STRUCTURES: Intact ADDITIONAL FINDINGS None XR/XR chest 2V* IMPRESSION: Improved parenchymal densities. Residual mild basilar pleural-parenchymal changes. Intact cardiac device. No pneumothorax. Impression dictated by: Srinivas Clemons M.D.07/17/2022 9:26 AM Dictation Location: [place] [address] Transcribed By: DOMENIC 07/17/22 0926 Dictated By: Srinivas Clemons DO 07/17/22922 Signed By: 07/17/[address] [facility] Basic Metabolic Panelon 06-28 Anion gap [Moles/Vol] Not performed Normal 6.0-15.0 [facility] Comment on above: Performed By: #### B MP, CBC ####[facility] [place] [address] [facility] Calcium [Mass/Vol] 8.4 mg/dL Low 8.6-10.3 [facility] Comment on above: Performed By: #### B MP, CBC ####[facility] [id number] [place] [address] [place] Chloride [Moles/Vol] 93 mmol/L Low 98-107 [facility] Comment on above: Performed By: #### B MP, CBC ####[place] [id number] [place] [address] [facility] CO2 [Moles/Vol] mmol/L High 21.0-31.0 [facility] Comment on above: Performed By: #### B MP, CBC ####[place] [address] [place] [address] [place] Creatinine [Mass/Vol] 0.42 mg/dL Low 0.70-1.30 [facility] Comment on above: Performed By: #### B MP, CBC ####[place] [address] [place] [address] [place] Creatinine Clr Calc Pharmacy 87.88 [facility] Comment on above: Result Comment: PERF ORMED BY: [facility] [address] [place] [address] PATHOLOGIST HEEL SEAT FILLER ABDIEL MTZ M.D. Performed By: #### B MP, CBC ####[place] [address] [place] [address] [place] GFR/1.73 sq M.predicted MDRD (S/P/Bld) [Vol rate/Area] mL/min/{1.73_m2} [facility] Comment on above: Performed By: #### B MP, CBC ####[address] Glucose [Mass/Vol] 78 mg/dL Normal 70-100 [facility] Comment on above: Result Comment: [facility] Glucose Reference Range is dependent on time and content of last meal. Glucose of more than 200 mg/dL in a nonstressed, ambulatory subject supports the diagnosis of Diabetes Mellitus. ADA recommended reference range Performed By: #### B MP, CBC ####[address] Potassium [Moles/Vol] 4.2 mmol/L Normal 3.5-5.1 [facility] Comment on above: Performed By: #### B MP, CBC ####[address] Sodium [Moles/Vol] 138 mmol/L Normal 136-145 [facility] Comment on above: Performed By: #### B MP, CBC ####[address] Urea nitrogen [Mass/Vol] 5 mg/dL Low 7-25 [facility] Comment on above: Performed By: #### B MP, CBC ####[address] Complete Blood Count Auto Di ffon 07-16-2022 Basophils (Bld) [#/Vol] 0.0 10*3/uL Normal 0.0-0.2 [facility] Comment on above: Result Comment: PERF ORMED BY: [facility] [address] [place] [address] PATHOLOGIST HEEL SEAT FILLER ABDIEL MTZ M.D. Performed By: #### B MP, CBC ####[address] Basophils/100 WBC (Bld) 0.7 % Normal . [facility] Comment on above: Performed By: #### B MP, CBC ####[address] Eosinophils (Bld) [#/Vol] 0.0 10*3/uL Normal 0.0-0.45 [facility] Comment on above: Performed By: #### B MP, CBC ####[address] Eosinophils/100 WBC (Bld) 0.3 % Normal . [facility] Comment on above: Performed By: #### B MP, CBC ####[address] Erythrocyte distribution wid th (RBC) [Ratio] 17.9 % High 12.0-14.8 [facility] Comment on above: Performed By: #### B MP, CBC ####[address] Hematocrit (Bld) [Volume fraction] 31.4 % Low 38.8-50.0 [facility] Comment on above: Performed By: #### B MP, CBC ####[address] Hemoglobin (Bld) [Mass/Vol] 9.6 g/dL Low 13.0-17. 0 [facility] Comment on above: Performed By: #### B MP, CBC ####[address] Lymphocytes (Bld) [#/Vol] 1.7 10*3/uL Normal 1.00-4.8 [facility] Comment on above: Performed By: #### B MP, CBC ####[address] Lymphocytes/100 WBC (Bld) 23.8 % Normal . [facility] Comment on above: Performed By: #### B MP, CBC ####[address] MCH (RBC) [Entitic mass] 24.9 pg Low 27.5-35.2 [facility] Comment on above: Performed By: #### B MP, CBC ####[address] MCV (RBC) [Entitic vol] 81.7 fL Low 83.5-[address] [facility] Comment on above: Performed By: #### B MP, CBC ####[address] Mean Corpuscular HGB Conc 30.5 g/dL Low 32.5-35.6 [facility] Comment on above: Performed By: #### B MP, CBC ####[address] Monocytes (Bld) [#/Vol] 0.9 10*3/uL High 0.0-0.8 [facility] Comment on above: Performed By: #### B MP, CBC ####[address] Monocytes/100 WBC (Bld) 12.8 % Normal . [facility] Comment on above: Performed By: #### B MP, CBC ####[address] Neutrophils (Bld) [#/Vol] 4.3 10*3/uL Normal 1.8-7.7 [facility] Comment on above: Performed By: #### B MP, CBC ####[address] Neutrophils/100 WBC (Bld) 62.4 % Normal . [facility] Comment on above: Performed By: #### B MP, CBC ####[place] [id number] [facility] NRBC% 0.3 /100{WBC} Normal 0-0.5 [facility] Comment on above: Performed By: #### B MP, CBC ####[place] [id number] [facility] Platelet mean volume (Bld) [Entitic vol] 8.8 fL Normal 6.6-10.1 [facility] Comment on above: Performed By: #### B MP, CBC ####[place] [id number] [facility] Platelets (Bld) [#/Vol] 127 10*3/uL Low 150-450 [facility] Comment on above: Performed By: #### B MP, CBC ####[facility] [place] [id number] [facility] RBC (Bld) [#/Vol] 3.84 10*6/uL Low 3.90-5.60 [facility] Comment on above: Performed By: #### B MP, CBC ####[facility] [address] [place] [address] [facility] WBC (Bld) [#/Vol] 6.9 10*3/uL Normal 4.1-10.5 [facility] Comment on above: Performed By: #### B MP, CBC ####[facility] [place] [address] [facility] ECG 12 lead ECGon 07-16-2022 ECG 12 lead ECG [facility] [place] [address] Electrocardiograph Report Signed Patient: Jaime Lechuga MR#: [id number] : 1955 Acct:[id number] Age/Sex: 66 / M ADM Date: 07/10/22 Loc: Room: [address] [place] [address] Type: ADM IN Attending Dr: Benji Gamez DO Ordering Provider: Jaziel Gomez MD Date of Service: 07/16/22 ECG/ECG 12 lead ECG: atrial fib Copies to: Test Reason : Blood Pressure : / mmHG Vent. Rate : 089 BPM Atrial Rate : 089 BPM P-R Int : 146 ms QRS Dur : 108 ms QT Int : 366 ms P-R-T Axes : 076 094 038 degrees QTc Int : 445 ms Normal sinus rhythm Incomplete right bundle branch block Right ventricular hypertrophy with repolarization abnormality Abnormal ECG When compared with ECG of 15-JUL-2022 07:36, (Unconfirmed) No significant change was found Confirmed by ISSA LOVE MD ([id number]) on 07/16/2022 3:35:45 PM Referred By: Electronically Signed By:ISSA LOVE MD Transcribed By: MUS Signed By Issa Love MD 0 07/16/22 1535 Normal [facility] Partial Thromboplastin Timeo n 07-16-2022 aPTT Coag (Bld) [Time] 31.6 s Normal 25.1-36.5 [facility] Comment on above: Result Comment: PERF ORMED BY: [place] [address] PATHOLOGIST HEEL SEAT FILLER ABDIEL MTZ M.D. Performed By: #### C MP, CBC #### [facility] [address] [place] [address] Prothrombin Time INRon 07-16 INR Coag (PPP) [Relative time] 1.1 {INR} Normal [facility] Comment on above: Result Comment: INR Therapeutic Range A) Pre- and Peroperative OAT started two weeks before surgery. NOT HIP SURGERY: 1.5 - 2.5 HIP SURGERY: 2 - 3 B) Primary and secondary prevention of venous THROMBOSIS: 2 - 3 C) Active venous thrombosis, pulmonary embolism and prevention of recurrent venous thrombosis: 2 - 3 D) Prevention of arterial thromboembolism including patients with mechanical heart valves: 3 - 4.5 Performed By: #### C MP, CBC #### [address] PT Coag (PPP) [Time] 12.8 s Normal 9.0-12.9 [facility] Comment on above: Performed By: #### C MP, CBC #### [place] [id number] [place] XR chest 1V portableon 07-16 XR chest 1V portable [facility] Main [place] [address] [place] [address] XRay Report Signed Patient: Jaime Lechuga MR#: [id number] : 1955 Acct:[id number] Age/Sex: 66 / M ADM Date: 07/10/22 Loc: Room: [address] [place] [address] Type: ADM IN Attending Dr: Benji Gamez DO Copies to: DO Jaziel Pandey MD Ordering Provider: Jaziel Gomez MD Date of Service: 07/16/22 XR/XR chest 1V portable: POST PACER XR chest 1V portable 07/16/2022 12:53 PM SIGNS AND SYMPTOMS: POST PACER PROTOCOL: Frontal radiograph of the chest COMPARISON: 07/12/2022 FINDINGS: The trachea is midline. There is a dual lead pacer device on the left which is new. The leads are in satisfactory position. There is no pneumothorax. Interstitial prominence is present bilaterally. Calcified granulomas and left hilar lymph nodes are noted. The heart is normal in signal. Hazy airspace opacities are present bilaterally worsening when compared with prior exam. The bony thorax is intact. XR/XR chest 1V portable IMPRESSION: Status post pacer placement on the left, as above. No pneumothorax. Worsening bilateral airspace opacities are noted. Impression dictated by: Gopal Mckinney M.D.07/16/2022 1:15 PM Dictation Location: [place] [address] Transcribed By: [facility] 07/16/22 1315 Dictated By: Gopal Mckinney II, MD 07/16/22 1311 Signed By: 07/16/22 1315 Normal [facility] Complete Blood Count Auto Di ffon 07-15-2022 Basophils (Bld) [#/Vol] 0.1 10*3/uL Normal 0.0-0.2 [facility] Comment on above: Result Comment: PERF ORMED BY: [place] [address] PATHOLOGIST HEEL SEAT FILLER ABDIEL MTZ M.D. Performed By: #### C MP, CBC #### [facility] [address] [place] [address] [place] Basophils/100 WBC (Bld) 1.3 % Normal . [facility] Comment on above: Performed By: #### C MP, CBC #### [facility] [address] [place] [address] [place] Eosinophils (Bld) [#/Vol] 0.0 10*3/uL Normal 0.0-0.45 [facility] Comment on above: Performed By: #### C MP, CBC #### [facility] [address] Eosinophils/100 WBC (Bld) 0.7 % Normal . [facility] Comment on above: Performed By: #### C MP, CBC #### [facility] [address] Erythrocyte distribution wid th (RBC) [Ratio] 17.8 % High 12.0-14.8 [facility] Comment on above: Performed By: #### C MP, CBC #### [facility] [address] Hematocrit (Bld) [Volume fraction] 27.6 % Low 38.8-50.0 [facility] Comment on above: Performed By: #### C MP, CBC #### [facility] [address] Hemoglobin (Bld) [Mass/Vol] 8.3 g/dL Low 13.0-17. 0 [facility] Comment on above: Performed By: #### C MP, CBC #### [facility] [address] Lymphocytes (Bld) [#/Vol] 2.0 10*3/uL Normal 1.00-4.8 [facility] Comment on above: Performed By: #### C MP, CBC #### [facility] [address] [place] [address] [place] Lymphocytes/100 WBC (Bld) 29.6 % Normal . [facility] Comment on above: Performed By: #### C MP, CBC #### [facility] [address] [place] [address] [place] MCH (RBC) [Entitic mass] 24.5 pg Low 27.5-35.2 [facility] Comment on above: Performed By: #### C MP, CBC #### [facility] [address] MCV (RBC) [Entitic vol] 81.0 fL Low 83.5-[address] [facility] Comment on above: Performed By: #### C MP, CBC #### [facility] [address] Mean Corpuscular HGB Conc 30.2 g/dL Low 32.5-35.6 [facility] Comment on above: Performed By: #### C MP, CBC #### [facility] [address] [place] [address] [place] Monocytes (Bld) [#/Vol] 0.8 10*3/uL Normal 0.0-0.8 [facility] Comment on above: Performed By: #### C MP, CBC #### [facility] [address] [place] [address] [place] Monocytes/100 WBC (Bld) 11.3 % Normal . [facility] Comment on above: Performed By: #### C MP, CBC #### [facility] [address] [place] [address] [place] Neutrophils (Bld) [#/Vol] 3.9 10*3/uL Normal 1.8-7.7 [facility] Comment on above: Performed By: #### C MP, CBC #### [facility] [address] [place] [address] [place] Neutrophils/100 WBC (Bld) 57.1 % Normal . [facility] Comment on above: Performed By: #### C MP, CBC #### [facility] [address] [place] [address] [place] NRBC% 0.4 /100{WBC} Normal 0-0.5 [facility] Comment on above: Performed By: #### C MP, CBC #### [facility] [address] [place] [address] [place] Platelet mean volume (Bld) [Entitic vol] 8.8 fL Normal 6.6-10.1 [facility] Comment on above: Performed By: #### C MP, CBC #### [facility] [address] [place] [id number] [place] Platelets (Bld) [#/Vol] 132 10*3/uL Low 150-450 [facility] Comment on above: Performed By: #### C MP, CBC #### [facility] [address] RBC (Bld) [#/Vol] 3.40 10*6/uL Low 3.90-5.60 [facility] Comment on above: Performed By: #### C MP, CBC #### [facility] [address] [place] [address] WBC (Bld) [#/Vol] 6.8 10*3/uL Normal 4.1-10.5 [facility] Comment on above: Performed By: #### C MP, CBC #### [facility] [address] [place] [address] Comprehensive Metabolic Pane eunice 07-15-2022 Albumin [Mass/Vol] 2.8 g/dL Low 3.5-5.7 [facility] Comment on above: Performed By: #### C MP, CBC #### [address] Albumin/Globulin [Mass ratio] 1.0 {ratio} Normal [facility] Comment on above: Performed By: #### C MP, CBC #### [facility] [address] [place] [address] ALP [Catalytic activity/Vol] 144 U/L High 34-104 [facility] Comment on above: Performed By: #### C MP, CBC #### [facility] [address] [place] [address] ALT [Catalytic activity/Vol] 313 U/L High 7-52 [facility] Comment on above: Performed By: #### C MP, CBC #### [facility] [address] [place] [address] Anion gap [Moles/Vol] 4.0 mmol/L Low 6.0-15.0 [facility] Comment on above: Performed By: #### C MP, CBC #### [facility] [address] [place] [address] AST [Catalytic activity/Vol] 81 U/L High 13-39 [facility] Comment on above: Performed By: #### C MP, CBC #### [facility] [address] [place] [address] [place] Bilirubin [Mass/Vol] 0.7 mg/dL Normal 0.3-1.0 [facility] Comment on above: Performed By: #### C MP, CBC #### [facility] [address] Calcium [Mass/Vol] 7.9 mg/dL Low 8.6-10.3 [facility] Comment on above: Performed By: #### C MP, CBC #### [facility] [address] Chloride [Moles/Vol] 94 mmol/L Low 98-107 [facility] Comment on above: Performed By: #### C MP, CBC #### [facility] [address] CO2 [Moles/Vol] 43.3 mmol/L High 21.0-31.0 [facility] Comment on above: Performed By: #### C MP, CBC #### [facility] [address] [place] [address] [place] Creatinine [Mass/Vol] 0.43 mg/dL Low 0.70-1.30 [facility] Comment on above: Performed By: #### C MP, CBC #### [facility] [address] [place] [address] [place] Creatinine Clr Calc Pharmacy 87.88 [facility] Comment on above: Result Comment: PERF ORMED BY: [place] [address] PATHOLOGIST HEEL SEAT FILLER ABDIEL MTZ M.D. Performed By: #### C MP, CBC #### [facility] [address] [place] [address] [place] GFR/1.73 sq M.predicted MDRD (S/P/Bld) [Vol rate/Area] mL/min/{1.73_m2} [facility] Comment on above: Performed By: #### C MP, CBC #### [facility] [address] Globulin (S) [Mass/Vol] 2.8 g/dL Normal [facility] Comment on above: Performed By: #### C MP, CBC #### [address] Glucose [Mass/Vol] 81 mg/dL Normal 70-100 [facility] Comment on above: Result Comment: [facility] Glucose Reference Range is dependent on time and content of last meal. Glucose of more than 200 mg/dL in a nonstressed, ambulatory subject supports the diagnosis of Diabetes Mellitus. ADA recommended reference range Performed By: #### C MP, CBC #### [address] Potassium [Moles/Vol] 4.3 mmol/L Normal 3.5-5.1 [facility] Comment on above: Performed By: #### C MP, CBC #### [address] Protein [Mass/Vol] 5.6 g/dL Low 6.4-8.9 [facility] Comment on above: Performed By: #### C MP, CBC #### [address] Sodium [Moles/Vol] 137 mmol/L Normal 136-145 [facility] Comment on above: Performed By: #### C MP, CBC #### [address] Urea nitrogen [Mass/Vol] 6 mg/dL Low 7-25 [facility] Comment on above: Performed By: #### C MP, CBC #### [address] ECG 12 lead ECGon 07-15-2022 ECG 12 lead ECG [facility] Main [place] [address] [place] [address] Electrocardiograph Report Signed Patient: Jaime Lechuga MR#: [id number] : 1955 Acct:[id number] Age/Sex: 66 / M ADM Date: 07/10/22 Loc: 4P Room: 8V4540-5 Type: ADM IN Attending Dr: Benji Gamez DO Ordering Provider: Jaziel Gomez MD Date of Service: 07/15/22 ECG/ECG 12 lead ECG: atrial fib Copies to: Test Reason : Blood Pressure : / mmHG Vent. Rate : 090 BPM Atrial Rate : 090 BPM P-R Int : 142 ms QRS Dur : 112 ms QT Int : 352 ms P-R-T Axes : 083 108 049 degrees QTc Int : 430 ms Normal sinus rhythm Low voltage QRS Right bundle branch block Abnormal ECG When compared with ECG of 14-JUL-2022 19:18, (Unconfirmed) No significant change was found Confirmed by ISSA LOVE MD ([facility]) on 07/16/2022 3:35:31 PM Referred By: Electronically Signed By:ISSA LOVE MD Transcribed By: MUS Signed By Issa Love MD 0 07/16/22 1535 [facility] LeukoReduced RBCon 3 LeukoReduced RBC TRANSFUSED 07/15/22 1824 [facility] Partial Thromboplastin Timeo n 07-15-2022 aPTT Coag (Bld) [Time] 29.9 s Normal 25.1-36.5 [facility] Comment on above: Result Comment: PERF ORMED BY: [facility] [address] [place] [id number] PATHOLOGIST HEEL SEAT FILLER ABDIEL MTZ M.D. Performed By: #### P T, PTT ####[facility] [id number] [place] [id number] [facility] Prothrombin Time INRon 07-15 INR Coag (PPP) [Relative time] 1.1 {INR} [facility] Comment on above: Result Comment: INR Therapeutic Range A) Pre- and Peroperative OAT started two weeks before surgery. NOT HIP SURGERY: 1.5 - 2.5 HIP SURGERY: 2 - 3 B) Primary and secondary prevention of venous THROMBOSIS: 2 - 3 C) Active venous thrombosis, pulmonary embolism and prevention of recurrent venous thrombosis: 2 - 3 D) Prevention of arterial thromboembolism including patients with mechanical heart valves: 3 - 4.5 Performed By: #### P T, PTT ####[facility] [id number] [place] [address] [facility] PT Coag (PPP) [Time] 13.0 s High 9.0-12.9 [facility] Comment on above: Performed By: #### P T, PTT ####[facility] [id number] [place] [id number] [place] Type and Screenon 07-15-2022 ABO and Rh group Nom (Bld) Blood group A Rh(D) positive Normal [facility] Comment on above: Order Comment: Trans fuse now? Y Number of units to transfuse now? 1 Result Comment: PERF ORMED BY: [facility] [address] [place] [address] PATHOLOGIST HEEL SEAT FILLER ABDIEL MTZ M.D. Arterial Blood Gason 023 ABG Base Excess 13.4 mmol/L High -3.0-3.0 [facility] Comment on above: Performed By: #### A BG ####Point of Care testing, ABG Frac Inspired O2 40 % [facility] Comment on above: Performed By: #### A BG ####Point of Care testing, ABG Oxygen Content 4.8 mmol/L Low 6.6-9.7 [facility] Comment on above: Performed By: #### A BG ####Point of Care testing, ABG Oxygen Saturation 86.8 % Low 95.0-100.0 [facility] Comment on above: Performed By: #### A BG ####Point of Care testing, ABG PCO2 69.4 mm[Hg] Off scale high 35.0-45.0 [facility] Comment on above: Performed By: #### A BG ####Point of Care testing, ABG PEEP 5 [facility] Comment on above: Performed By: #### A BG ####Point of Care testing, ABG PH 7.38 Normal 7.35-7.45 [facility] Comment on above: Performed By: #### A BG ####Point of Care testing, ABG PO2 52.3 mm[Hg] Low 80.0-100.0 [facility] Comment on above: Performed By: #### A BG ####Point of Care testing, ABG Pressure Support 10.0 Normal [facility] Comment on above: Performed By: #### A BG ####Point of Care testing, CO2 [Moles/Vol] 42.5 mmol/L High 23.0-27.0 [facility] Comment on above: Performed By: #### A BG ####Point of Care testing, HCO3 (Bld) [Moles/Vol] 40.4 mmol/L High 23.0-29.0 [facility] Comment on above: Performed By: #### A BG ####Point of Care testing, Respiratory Critical Normal [facility] Comment on above: Result Comment: Crit ical Value called on: 07/14/2022 at 04:54 PERFORMED BY: [facility] [address] [place] [address] PATHOLOGIST HEEL SEAT FILLER ABDIEL MTZ M.D. Performed By: #### A BG ####Point of Care testing, VBG Draw Site Right Radial [facility] Comment on above: Performed By: #### A BG ####Point of Care testing, Complete Blood Count Auto Di ffon 07-14-2022 Basophils (Bld) [#/Vol] 0.1 10*3/uL Normal 0.0-0.2 [facility] Comment on above: Result Comment: PERF ORMED BY: [facility] [address] [place] [address] PATHOLOGIST HEEL SEAT FILLER ABDIEL MTZ M.D. Performed By: #### C BC, CMP ####[facility] [id number] [place] [address] [facility] Basophils/100 WBC (Bld) 0.9 % Normal . [facility] Comment on above: Performed By: #### C BC, CMP ####[address] [address] [facility] Eosinophils (Bld) [#/Vol] 0.0 10*3/uL Normal 0.0-0.45 [facility] Comment on above: Performed By: #### C BC, CMP ####[place] [id number] [facility] Eosinophils/100 WBC (Bld) 0.2 % Normal . [facility] Comment on above: Performed By: #### C BC, CMP ####[place] [id number] [facility] Erythrocyte distribution wid th (RBC) [Ratio] 17.4 % High 12.0-14.8 [facility] Comment on above: Performed By: #### C KEVEN, CMP ####[place] [id number] [facility] Hematocrit (Bld) [Volume fraction] 25.3 % Low 38.8-50.0 [facility] Comment on above: Performed By: #### C BC, CMP ####[place] [id number] [facility] Hemoglobin (Bld) [Mass/Vol] 7.7 g/dL Low 13.0-17. 0 [facility] Comment on above: Performed By: #### C BC, CMP ####[place] [id number] [facility] Lymphocytes (Bld) [#/Vol] 1.2 10*3/uL Normal 1.00-4.8 [facility] Comment on above: Performed By: #### C BC, CMP ####[place] [id number] [facility] Lymphocytes/100 WBC (Bld) 15.4 % Normal . [facility] Comment on above: Performed By: #### C BC, CMP ####[place] [id number] [facility] MCH (RBC) [Entitic mass] 24.5 pg Low 27.5-35.2 [facility] Comment on above: Performed By: #### C BC, CMP ####[place] [address] [place] [address] [facility] MCV (RBC) [Entitic vol] 81.0 fL Low 83.5-[address] [facility] Comment on above: Performed By: #### C BC, CMP ####[address] [address] [facility] Mean Corpuscular HGB Conc 30.3 g/dL Low 32.5-35.6 [facility] Comment on above: Performed By: #### C BC, CMP ####[address] [address] [facility] Monocytes (Bld) [#/Vol] 0.9 10*3/uL High 0.0-0.8 [facility] Comment on above: Performed By: #### C KEVEN, CMP ####[address] [address] [facility] Monocytes/100 WBC (Bld) 11.6 % Normal . [facility] Comment on above: Performed By: #### C KEVEN, CMP ####[address] [address] [facility] Neutrophils (Bld) [#/Vol] 5.4 10*3/uL Normal 1.8-7.7 [facility] Comment on above: Performed By: #### C KEVEN, CMP ####[address] [address] [facility] Neutrophils/100 WBC (Bld) 71.9 % Normal . [facility] Comment on above: Performed By: #### C BC, CMP ####[address] [address] [facility] NRBC% 0.9 /100{WBC} High 0-0.5 [facility] Comment on above: Performed By: #### C BC, CMP ####[address] [address] [facility] Platelet mean volume (Bld) [Entitic vol] 9.8 fL Normal 6.6-10.1 [facility] Comment on above: Performed By: #### C BC, CMP ####[place] [address] [place] [address] [facility] Platelets (Bld) [#/Vol] 128 10*3/uL Low 150-450 [facility] Comment on above: Performed By: #### C BC, CMP ####[place] [address] [place] [address] [facility] RBC (Bld) [#/Vol] 3.12 10*6/uL Low 3.90-5.60 [facility] Comment on above: Performed By: #### C BC, CMP ####[address] [address] [facility] WBC (Bld) [#/Vol] 7.6 10*3/uL Normal 4.1-10.5 [facility] Comment on above: Performed By: #### C KEVEN, CMP ####[address] [address] [facility] Comprehensive Metabolic Pane eunice 07-14-2022 Albumin [Mass/Vol] 2.7 g/dL Low 3.5-5.7 [facility] Comment on above: Performed By: #### C KEVEN, CMP ####[address] [address] [facility] Albumin/Globulin [Mass ratio] 1.0 {ratio} Normal [facility] Comment on above: Performed By: #### C KEVEN, CMP ####[address] [address] [facility] ALP [Catalytic activity/Vol] 142 U/L High 34-104 [facility] Comment on above: Performed By: #### C BC, CMP ####[address] [address] [facility] ALT [Catalytic activity/Vol] 387 U/L High 7-52 [facility] Comment on above: Performed By: #### C BC, CMP ####[address] [address] [facility] Anion gap [Moles/Vol] 3.2 mmol/L Low 6.0-15.0 [facility] Comment on above: Performed By: #### C BC, CMP ####[facility] [place] [address] [facility] AST [Catalytic activity/Vol] 117 U/L High 13-39 [facility] Comment on above: Performed By: #### C BC, CMP ####[facility] [address] [place] [address] [facility] Bilirubin [Mass/Vol] 0.7 mg/dL Normal 0.3-1.0 [facility] Comment on above: Performed By: #### C BC, CMP ####[facility] [place] [address] [facility] Calcium [Mass/Vol] 7.4 mg/dL Low 8.6-10.3 [facility] Comment on above: Performed By: #### C BC, CMP ####[place] [address] [place] [address] [place] Chloride [Moles/Vol] 96 mmol/L Low 98-107 [facility] Comment on above: Performed By: #### C BC, CMP ####[facility] [place] [address] [place] CO2 [Moles/Vol] 42.4 mmol/L High 21.0-31.0 [facility] Comment on above: Performed By: #### C BC, CMP ####[facility] [place] [address] [facility] Creatinine [Mass/Vol] 0.56 mg/dL Low 0.70-1.30 [facility] Comment on above: Performed By: #### C BC, CMP ####[facility] [place] [address] [place] Creatinine Clr Calc Pharmacy 87.88 Normal [facility] Comment on above: Result Comment: PERF ORMED BY: [facility] [address] [place] [address] PATHOLOGIST HEEL SEAT FILLER ABDIEL MTZ M.D. Performed By: #### C BC, CMP ####[place] [address] [place] [address] [place] GFR/1.73 sq M.predicted MDRD (S/P/Bld) [Vol rate/Area] mL/min/{1.73_m2} Normal [facility] Comment on above: Performed By: #### C BC, CMP ####[place] [address] [place] [address] [facility] Globulin (S) [Mass/Vol] 2.6 g/dL Normal [facility] Comment on above: Performed By: #### C BC, CMP ####[address] [address] [facility] Glucose [Mass/Vol] 103 mg/dL High 70-100 [facility] Comment on above: Result Comment: [facility] Glucose Reference Range is dependent on time and content of last meal. Glucose of more than 200 mg/dL in a nonstressed, ambulatory subject supports the diagnosis of Diabetes Mellitus. ADA recommended reference range Performed By: #### C KEVEN, CMP ####[address] [address] [facility] Potassium [Moles/Vol] 4.6 mmol/L Normal 3.5-5.1 [facility] Comment on above: Performed By: #### C KEVEN, CMP ####[address] [address] [facility] Protein [Mass/Vol] 5.3 g/dL Low 6.4-8.9 [facility] Comment on above: Performed By: #### C BC, CMP ####[address] [address] [facility] Sodium [Moles/Vol] 137 mmol/L Normal 136-145 [facility] Comment on above: Performed By: #### C BC, CMP ####[place] [id number] [facility] Urea nitrogen [Mass/Vol] 11 mg/dL Normal 7-25 [facility] Comment on above: Performed By: #### C BC, CMP ####[address] [address] [facility] ECG 12 lead ECGon 07-14-2022 ECG 12 lead ECG [facility] Main [address] [address] Electrocardiograph Report Signed Patient: Jaime Lechuga MR#: [id number] : 1955 Acct:[id number] Age/Sex: 66 / M ADM Date: 07/10/22 Loc: Room: [address] [place] [address] Type: DIS IN Attending Dr: Elvis Villarreal MD Ordering Provider: Iris Lassiter DO Date of Service: 07/12/22 ECG/ECG 12 lead ECG: EKG completed Copies to: Test Reason : Blood Pressure : / mmHG Vent. Rate : 091 BPM Atrial Rate : 091 BPM P-R Int : 144 ms QRS Dur : 110 ms QT Int : 352 ms P-R-T Axes : 084 127 069 degrees QTc Int : 432 ms Normal sinus rhythm Incomplete right bundle branch block Right ventricular hypertrophy with repolarization abnormality Cannot rule out Inferior infarct , age undetermined Abnormal ECG When compared with ECG of 14-JUL-2022 07:20, No significant change was found Confirmed by ADAIR DAI MD ([id number]) on 07/20/2022 3:12:20 PM Referred By: Electronically Signed By:ADAIR DAI MD Transcribed By: MUS Signed By Adair Dai MD 1512 [facility] ECG 12 lead ECG [facility] Main [place] [id number] Electrocardiograph Report Signed Patient: Jaime Lechuga MR#: [id number] : 1955 Acct:[id number] Age/Sex: 66 / M ADM Date: 07/10/22 Loc: Room: [address] [place] [address] Type: ADM IN Attending Dr: Benji Gamez DO Ordering Provider: Jaziel Gomez MD Date of Service: 07/14/22 ECG/ECG 12 lead ECG: atrial fib Copies to: Test Reason : Blood Pressure : / mmHG Vent. Rate : 084 BPM Atrial Rate : 084 BPM P-R Int : 148 ms QRS Dur : 112 ms QT Int : 352 ms P-R-T Axes : 082 143 044 degrees QTc Int : 415 ms Normal sinus rhythm Incomplete right bundle branch block Right ventricular hypertrophy Abnormal ECG When compared with ECG of 14-JUL-2022 02:42, (Unconfirmed) No significant change was found Confirmed by ISSA LOVE MD ([id number]) on 07/14/2022 4:32:35 PM Referred By: Electronically Signed By:ISSA LOVE MD Transcribed By: MUS Signed By Issa Love MD 0 07/14/22 1632 [facility] ECG 12 lead ECG [facility] [place] [address] Electrocardiograph Report Signed Patient: Jaime Lechuga MR#: [id number] : 1955 Acct:[id number] Age/Sex: 66 / M ADM Date: 07/10/22 Loc: Room: [address] [place] [address] Type: DIS IN Attending Dr: Elvis Villarreal MD Ordering Provider: Iris Lassiter DO Date of Service: 07/12/22 ECG/ECG 12 lead ECG: EKG COMPLETED Copies to: Test Reason : Blood Pressure : / mmHG Vent. Rate : 074 BPM Atrial Rate : 074 BPM P-R Int : 144 ms QRS Dur : 108 ms QT Int : 360 ms P-R-T Axes : 088 132 060 degrees QTc Int : 399 ms Normal sinus rhythm Incomplete right bundle branch block Right ventricular hypertrophy with repolarization abnormality Nonspecific T wave abnormality Abnormal ECG When compared with ECG of 13-JUL-2022 08:03, No significant change was found Confirmed by ADAIR DAI MD ([id number]) on 07/20/2022 3:11:39 PM Referred By: Electronically Signed By:ADAIR DAI MD Transcribed By: MUS Signed By Adair Dai MD 1511 [facility] Partial Thromboplastin Timeo n 07-14-2022 aPTT Coag (Bld) [Time] 29.0 s Normal 25.1-36.5 [facility] Comment on above: Result Comment: PERF ORMED BY: [place] [address] PATHOLOGIST HEEL SEAT FILLER ABDIEL MTZ M.D. Performed By: #### P TT, PT #### [facility] [address] [place] [address] Prothrombin Time INRon 07-14 INR Coag (PPP) [Relative time] 1.2 {INR} Normal [facility] Comment on above: Result Comment: INR Therapeutic Range A) Pre- and Peroperative OAT started two weeks before surgery. NOT HIP SURGERY: 1.5 - 2.5 HIP SURGERY: 2 - 3 B) Primary and secondary prevention of venous THROMBOSIS: 2 - 3 C) Active venous thrombosis, pulmonary embolism and prevention of recurrent venous thrombosis: 2 - 3 D) Prevention of arterial thromboembolism including patients with mechanical heart valves: 3 - 4.5 Performed By: #### P TT, PT #### [facility] [address] [place] [address] PT Coag (PPP) [Time] 13.8 s High 9.0-12.9 [facility] Comment on above: Performed By: #### P TT, PT #### [facility] [address] [place] [address] Coagulation Profileon 2022 aPTT Coag (Bld) [Time] 25.8 s Normal 25.1-36.5 [facility] Comment on above: Result Comment: PERF ORMED BY: [place] [address] PATHOLOGIST HEEL SEAT FILLER ABDIEL MTZ M.D. Performed By: #### P TT, PT #### [facility] [address] [place] [address] INR Coag (PPP) [Relative time] 1.2 {INR} Normal [facility] Comment on above: Result Comment: INR Therapeutic Range A) Pre- and Peroperative OAT started two weeks before surgery. NOT HIP SURGERY: 1.5 - 2.5 HIP SURGERY: 2 - 3 B) Primary and secondary prevention of venous THROMBOSIS: 2 - 3 C) Active venous thrombosis, pulmonary embolism and prevention of recurrent venous thrombosis: 2 - 3 D) Prevention of arterial thromboembolism including patients with mechanical heart valves: 3 - 4.5 Performed By: #### P TT, PT #### [address] PT Coag (PPP) [Time] 14.1 s High 9.0-12.9 [facility] Comment on above: Performed By: #### P TT, PT #### [address] Complete Blood Count Auto Di ffon 07-13-2022 Basophils (Bld) [#/Vol] 0.1 10*3/uL Normal 0.0-0.2 [facility] Comment on above: Performed By: #### P TT, PT #### [address] Basophils/100 WBC (Bld) 0.8 % Normal . [facility] Comment on above: Performed By: #### P TT, PT #### [address] Eosinophils (Bld) [#/Vol] 0.0 10*3/uL Normal 0.0-0.45 [facility] Comment on above: Performed By: #### P TT, PT #### [address] Eosinophils/100 WBC (Bld) 0.4 % Normal . [facility] Comment on above: Performed By: #### P TT, PT #### [address] Erythrocyte distribution wid th (RBC) [Ratio] 17.6 % High 12.0-14.8 [facility] Comment on above: Performed By: #### P TT, PT #### [address] Hematocrit (Bld) [Volume fraction] 22.0 % Low 38.8-50.0 [facility] Comment on above: Performed By: #### P TT, PT #### [address] Hemoglobin (Bld) [Mass/Vol] 6.6 g/dL Low 13.0-17. 0 [facility] Comment on above: Performed By: #### P TT, PT #### [address] Lymphocytes (Bld) [#/Vol] 1.1 10*3/uL Normal 1.00-4.8 [facility] Comment on above: Performed By: #### P TT, PT #### [address] Lymphocytes/100 WBC (Bld) 15.5 % Normal . [facility] Comment on above: Performed By: #### P TT, PT #### [address] MCH (RBC) [Entitic mass] 24.0 pg Low 27.5-35.2 [facility] Comment on above: Performed By: #### P TT, PT #### [address] MCV (RBC) [Entitic vol] 80.4 fL Low 83.5-[address] [facility] Comment on above: Performed By: #### P TT, PT #### [address] Mean Corpuscular HGB Conc 29.9 g/dL Low 32.5-35.6 [facility] Comment on above: Performed By: #### P TT, PT #### [address] Monocytes (Bld) [#/Vol] 0.7 10*3/uL Normal 0.0-0.8 [facility] Comment on above: Performed By: #### P TT, PT #### [address] Monocytes/100 WBC (Bld) 10.3 % Normal . [facility] Comment on above: Performed By: #### P TT, PT #### [address] Neutrophils (Bld) [#/Vol] 5.2 10*3/uL Normal 1.8-7.7 [facility] Comment on above: Performed By: #### P TT, PT #### [address] Neutrophils/100 WBC (Bld) 73.0 % Normal . [facility] Comment on above: Performed By: #### P TT, PT #### [address] NRBC% 0.5 /100{WBC} Normal 0-0.5 [facility] Comment on above: Performed By: #### P TT, PT #### [address] Platelet mean volume (Bld) [Entitic vol] 9.4 fL Normal 6.6-10.1 [facility] Comment on above: Performed By: #### P TT, PT #### [address] Platelets (Bld) [#/Vol] 128 10*3/uL Low 150-450 [facility] Comment on above: Performed By: #### P TT, PT #### [address] RBC (Bld) [#/Vol] 2.74 10*6/uL Low 3.90-5.60 [facility] Comment on above: Performed By: #### P TT, PT #### [address] WBC (Bld) [#/Vol] 7.1 10*3/uL Normal 4.1-10.5 [facility] Comment on above: Performed By: #### P TT, PT #### [address] Comprehensive Metabolic Pane eunice 07-13-2022 Albumin [Mass/Vol] 2.7 g/dL Low 3.5-5.7 [facility] Comment on above: Performed By: #### P TT, PT #### [address] Albumin/Globulin [Mass ratio] 1.0 {ratio} Normal [facility] Comment on above: Performed By: #### P TT, PT #### [address] ALP [Catalytic activity/Vol] 155 U/L High 34-104 [facility] Comment on above: Performed By: #### P TT, PT #### [address] ALT [Catalytic activity/Vol] 480 U/L High 7-52 [facility] Comment on above: Performed By: #### P TT, PT #### [address] Anion gap [Moles/Vol] 4.3 mmol/L Low 6.0-15.0 [facility] Comment on above: Performed By: #### P TT, PT #### [address] AST [Catalytic activity/Vol] 182 U/L High 13-39 [facility] Comment on above: Performed By: #### P TT, PT #### [address] Bilirubin [Mass/Vol] 0.5 mg/dL Normal 0.3-1.0 [facility] Comment on above: Performed By: #### P TT, PT #### [facility] [address] [place] [address] Calcium [Mass/Vol] 7.3 mg/dL Low 8.6-10.3 [facility] Comment on above: Performed By: #### P TT, PT #### [facility] [address] [place] [address] Chloride [Moles/Vol] 98 mmol/L Normal 98-107 [facility] Comment on above: Performed By: #### P TT, PT #### [address] CO2 [Moles/Vol] 41.2 mmol/L High 21.0-31.0 [facility] Comment on above: Performed By: #### P TT, PT #### [facility] [address] Creatinine [Mass/Vol] 0.55 mg/dL Low 0.70-1.30 [facility] Comment on above: Performed By: #### P TT, PT #### [facility] [address] [place] [address] [place] Creatinine Clr Calc Pharmacy 87.88 [facility] Comment on above: Performed By: #### P TT, PT #### [facility] [address] [place] [address] [place] GFR/1.73 sq M.predicted MDRD (S/P/Bld) [Vol rate/Area] mL/min/{1.73_m2} [facility] Comment on above: Performed By: #### P TT, PT #### [facility] [address] Globulin (S) [Mass/Vol] 2.6 g/dL Normal [facility] Comment on above: Performed By: #### P TT, PT #### [address] Glucose [Mass/Vol] 103 mg/dL High 70-100 [facility] Comment on above: Result Comment: [place] Glucose Reference Range is dependent on time and content of last meal. Glucose of more than 200 mg/dL in a nonstressed, ambulatory subject supports the diagnosis of Diabetes Mellitus. ADA recommended reference range Performed By: #### P TT, PT #### [facility] [address] [place] [address] [place] Potassium [Moles/Vol] 4.5 mmol/L Normal 3.5-5.1 [facility] Comment on above: Performed By: #### P TT, PT #### [facility] [address] Protein [Mass/Vol] 5.3 g/dL Low 6.4-8.9 [facility] Comment on above: Performed By: #### P TT, PT #### [facility] [address] Sodium [Moles/Vol] 139 mmol/L Normal 136-145 [facility] Comment on above: Performed By: #### P TT, PT #### [facility] [address] [place] [id number] [facility] Urea nitrogen [Mass/Vol] 14 mg/dL Normal 7-25 [facility] Comment on above: Performed By: #### P TT, PT #### [facility] [address] [place] [id number] [facility] ECG 12 lead ECGon 07-13-2022 ECG 12 lead ECG [facility] Main [place] [address] [place] [address] Electrocardiograph Report Signed Patient: Jaime Lechuga MR#: [id number] : 1955 Acct:[id number] Age/Sex: 66 / M ADM Date: 07/10/22 Loc: Room: [address] [place] [address] Type: ADM IN Attending Dr: Benji Gamez DO Ordering Provider: Jaziel Gomez MD Date of Service: 07/13/22 ECG/ECG 12 lead ECG: atrial fib Copies to: Test Reason : Blood Pressure : / mmHG Vent. Rate : 068 BPM Atrial Rate : 068 BPM P-R Int : 150 ms QRS Dur : 112 ms QT Int : 396 ms P-R-T Axes : 063 110 029 degrees QTc Int : 421 ms Normal sinus rhythm Incomplete right bundle branch block Right ventricular hypertrophy Abnormal ECG When compared with ECG of 12-JUL-2022 13:01, (Unconfirmed) Vent. rate has decreased BY 89 BPM Confirmed by ISSA LOVE MD ([id number]) on 07/13/2022 12:49:20 PM Referred By: Electronically Signed By:ISSA LOVE MD Transcribed By: MUS Signed By Issa Love MD 0 07/13/22 1249 Normal [facility] Ferritinon 07-13-2022 Ferritin [Mass/Vol] 9.4 ng/mL Low 23.9-336.2 [facility] Comment on above: Performed By: #### P TT, PT #### [facility] [address] [place] [address] [place] Ironon 07-13-2022 Iron [Mass/Vol] 11 ug/dL Low 50-212 [facility] Comment on above: Performed By: #### P TT, PT #### [facility] [address] [place] [address] Reticulocyte Counton 023 Reticulocyte Number 0.074 10*6/uL Normal 0.024-0.084 [facility] Comment on above: Result Comment: PERF ORMED BY: [place] [address] PATHOLOGIST HEEL SEAT FILLER ABDIEL MTZ M.D. Performed By: #### P TT, PT #### [address] Reticulocyte Percent 2.7 % High 0.5-1.5 [facility] Comment on above: Performed By: #### P TT, PT #### [address] Total Iron Binding Capacityo n 07-13-2022 Total Iron Binding Capacity 421 ug/dL Normal 255-450 [facility] Comment on above: Performed By: #### P TT, PT #### [facility] [address] [place] [address] Transferrin [Mass/Vol] 301 mg/dL Normal 203-362 [facility] Comment on above: Performed By: #### P TT, PT #### [facility] [address] [place] [address] Vit. B12/Folate Profileon Cobalamin (Vitamin B12) [Mass/Vol] 676 pg/mL Normal 180-914 [facility] Comment on above: Performed By: #### P TT, PT #### [facility] [address] [place] [address] Folate 6.2 ng/mL Normal >5.9 [facility] Comment on above: Result Comment: Mag[place] te reference range: >5.9 ng/ml The WHO technical consultation on folate and vitamin b12 deficiencies has determined that folate concentrations less than 4 ng/ml are considered deficient. PERFORMED BY: [place] [address] PATHOLOGIST HEEL SEAT FILLER ABDIEL MTZ M.D. Performed By: #### P TT, PT #### [address] MNA Antinuclear Antibodieson 07-12-2022 Antinuclear Abs, IFA Negative Normal . [facility] Comment on above: Order Comment: GO @O UT TODAY Result Comment: Nega tive <1:80 Borderline 1:80 Positive >1:80 ICAP nomenclature: AC-0 For more information about Hep-2 cell patterns use ANApatterns.org, the official website for the International Consensus on Antinuclear Antibody (MAN) Patterns (ICAP). Performed at: [facility] [id number] Substation Maintenance Technician: Martin Lala PhD, Phone: [phone] Performed By: #### S MAB #### [facility] , [id number] Phenotyp sal 07-12-2022 Alpha 1 Anti-Trypsin 129 mg/dL Normal 101-187 [facility] Comment on above: Order Comment: GO @O UT TODAY Performed By: #### P TT, PT #### [address] Phenotype (P1) MZ Normal . [facility] Comment on above: Order Comment: GO @O UT TODAY Result Comment: Phen otype Population A-1-AT Concentration* Incidence % % of MM (Typical Range) MM 86.5% 100% (96 - 189) MS 8.0% 86% (83 - 161) MZ 3.9% 61% (60 - 111) FM 0.4% 100% (93 - 191) SZ 0.3% 41% (42 - 75) SS 0.1% 64% (62 - 119) ZZ 0.05% 19% (16 - 38) FS 0.05% 70% (70 - 128) FZ Unknown 46% (44 - 88) FF Unknown Unknown *A-1-AT concentration in the homozygous MM phenotype is taken as the reference normal. Percent deficiency in each phenotype is reported relative to this reference. Ranges used to confirm phenotype. Performed at: - [address] [id number] Substation Maintenance Technician: Martin Lala PhD, Phone: [phone] Performed at: - [address] [id number] Substation Maintenance Technician: Scott Dumont MD, Phone: [phone] Performed By: #### P TT, PT #### [address] Arterial Blood Gason 023 ABG Base Excess 6.7 mmol/L High -3.0-3.0 [facility] Comment on above: Performed By: #### S MAB #### [facility] , ABG Frac Inspired O2 50 % [facility] Comment on above: Performed By: #### S MAB #### [facility] , ABG Liter Flow 12 [facility] Comment on above: Performed By: #### S MAB #### [facility] , ABG Oxygen Content 4.9 mmol/L Low 6.6-9.7 [facility] Comment on above: Performed By: #### S MAB #### [facility] , ABG Oxygen Saturation 96.8 % Normal 95.0-100.0 [facility] Comment on above: Performed By: #### S MAB #### [facility] , ABG PCO2 85.3 mm[Hg] Off scale high 35.0-45.0 [facility] Comment on above: Performed By: #### S MAB #### [facility] , ABG PH 7.24 Low 7.35-7.45 [facility] Comment on above: Performed By: #### S MAB #### [facility] , ABG PO2 103.6 mm[Hg] High 80.0-100.0 [facility] Comment on above: Performed By: #### S MAB #### [facility] , CO2 [Moles/Vol] 38.1 mmol/L High 23.0-27.0 [facility] Comment on above: Performed By: #### S MAB #### [facility] , HCO3 (Bld) [Moles/Vol] 35.5 mmol/L High 23.0-29.0 [facility] Comment on above: Performed By: #### S MAB #### [facility] , Oxygen Device Venti Mask Normal [facility] Comment on above: Performed By: #### S MAB #### [facility] , Respiratory Critical Normal [facility] Comment on above: Result Comment: Crit ical Value called on: 07/12/2022 at 04:56 PERFORMED BY: [place] [address] PATHOLOGIST HEEL SEAT FILLER ABDIEL MTZ M.D. Performed By: #### S MAB #### [facility] , VBG Draw Site Left Radial Normal [facility] Comment on above: Performed By: #### S MAB #### [facility] , Ceruloplasminon 07-12-2022 Ceruloplasmin 39.9 mg/dL High 16.0-31.0 [facility] Comment on above: Order Comment: GO @O UT TODAY Result Comment: Perf ormed at: CB - [facility] [address], [place], [place] [id number] Substation Maintenance Technician: Martin Lala PhD, Phone: [phone] PERFORMED BY: [facility] [address] [facility] [address] PATHOLOGIST HEEL SEAT FILLER ABDIEL MTZ M.D. Performed By: #### P TT, PT #### [facility] [address] Coagulation Profileon 2022 aPTT Coag (Bld) [Time] 28.1 s Normal 25.1-36.5 [facility] Comment on above: Result Comment: PERF ORMED BY: [place] [address] PATHOLOGIST HEEL SEAT FILLER ABDIEL MTZ M.D. Performed By: #### S MAB #### [facility] , INR Coag (PPP) [Relative time] 1.8 {INR} Normal [facility] Comment on above: Result Comment: INR Therapeutic Range A) Pre- and Peroperative OAT started two weeks before surgery. NOT HIP SURGERY: 1.5 - 2.5 HIP SURGERY: 2 - 3 B) Primary and secondary prevention of venous THROMBOSIS: 2 - 3 C) Active venous thrombosis, pulmonary embolism and prevention of recurrent venous thrombosis: 2 - 3 D) Prevention of arterial thromboembolism including patients with mechanical heart valves: 3 - 4.5 Performed By: #### S MAB #### [facility] , PT Coag (PPP) [Time] 20.8 s High 9.0-12.9 [facility] Comment on above: Performed By: #### S MAB #### [facility] , Complete Blood Count Auto Di ffon 07-12-2022 Basophils (Bld) [#/Vol] 0.0 10*3/uL Normal 0.0-0.2 [facility] Comment on above: Result Comment: PERF ORMED BY: [facility] [address] [place] [address] PATHOLOGIST HEEL SEAT FILLER ABDIEL MTZ M.D. Performed By: #### C MP, CBC ####[facility] [place] [address] [place] Basophils/100 WBC (Bld) 0.4 % Normal . [facility] Comment on above: Performed By: #### C MP, CBC ####[place] [address] [place] Eosinophils (Bld) [#/Vol] 0.0 10*3/uL Normal 0.0-0.45 [facility] Comment on above: Performed By: #### C MP, CBC ####[address] Eosinophils/100 WBC (Bld) 0.1 % Normal . [facility] Comment on above: Performed By: #### C MP, CBC ####[address] Erythrocyte distribution wid th (RBC) [Ratio] 17.7 % High 12.0-14.8 [facility] Comment on above: Performed By: #### C MP, CBC ####[address] Hematocrit (Bld) [Volume fraction] 23.3 % Low 38.8-50.0 [facility] Comment on above: Performed By: #### C MP, CBC ####[address] Hemoglobin (Bld) [Mass/Vol] 7.0 g/dL Low 13.0-17. 0 [facility] Comment on above: Performed By: #### C MP, CBC ####[address] Lymphocytes (Bld) [#/Vol] 0.9 10*3/uL Low 1.00-4.8 [facility] Comment on above: Performed By: #### C MP, CBC ####[address] Lymphocytes/100 WBC (Bld) 10.7 % Normal . [facility] Comment on above: Performed By: #### C MP, CBC ####[address] MCH (RBC) [Entitic mass] 24.1 pg Low 27.5-35.2 [facility] Comment on above: Performed By: #### C MP, CBC ####[address] MCV (RBC) [Entitic vol] 80.2 fL Low 83.5-[address] [facility] Comment on above: Performed By: #### C MP, CBC ####[address] Mean Corpuscular HGB Conc 30.0 g/dL Low 32.5-35.6 [facility] Comment on above: Performed By: #### C MP, CBC ####[address] Monocytes (Bld) [#/Vol] 0.7 10*3/uL Normal 0.0-0.8 [facility] Comment on above: Performed By: #### C MP, CBC ####[address] Monocytes/100 WBC (Bld) 7.6 % Normal . [facility] Comment on above: Performed By: #### C MP, CBC ####[address] Neutrophils (Bld) [#/Vol] 7.0 10*3/uL Normal 1.8-7.7 [facility] Comment on above: Performed By: #### C MP, CBC ####[address] Neutrophils/100 WBC (Bld) 81.2 % Normal . [facility] Comment on above: Performed By: #### C MP, CBC ####[address] NRBC% 0.9 /100{WBC} High 0-0.5 [facility] Comment on above: Performed By: #### C MP, CBC ####[address] Platelet mean volume (Bld) [Entitic vol] 9.5 fL Normal 6.6-10.1 [facility] Comment on above: Performed By: #### C MP, CBC ####[address] Platelets (Bld) [#/Vol] 136 10*3/uL Low 150-450 [facility] Comment on above: Performed By: #### C MP, CBC ####[facility] [address] [place], [place] [id number] [facility] RBC (Bld) [#/Vol] 2.90 10*6/uL Low 3.90-5.60 [facility] Comment on above: Performed By: #### C MP, CBC ####[facility] [address] [place], [place] [address] [facility] WBC (Bld) [#/Vol] 8.6 10*3/uL Normal 4.1-10.5 [facility] Comment on above: Performed By: #### C MP, CBC ####[place] [id number] [facility] Comprehensive Metabolic Pane eunice 07-12-2022 Albumin [Mass/Vol] 2.8 g/dL Low 3.5-5.7 [facility] Comment on above: Performed By: #### C MP, CBC ####[place] [id number] [facility] Albumin/Globulin [Mass ratio] 1.2 {ratio} Normal [facility] Comment on above: Performed By: #### C MP, CBC ####[place] [id number] [facility] ALP [Catalytic activity/Vol] 179 U/L High 34-104 [facility] Comment on above: Performed By: #### C MP, CBC ####[facility] [address] [place], [place] [address] [facility] ALT [Catalytic activity/Vol] 687 U/L High 7-52 [facility] Comment on above: Performed By: #### C MP, CBC ####[place] [id number] [facility] Anion gap [Moles/Vol] 4.0 mmol/L Low 6.0-15.0 [facility] Comment on above: Performed By: #### C MP, CBC ####[facility] [address] [place] [address] [facility] AST [Catalytic activity/Vol] 446 U/L High 13-39 [facility] Comment on above: Performed By: #### C MP, CBC ####[place] [address] [place] [address] [facility] Bilirubin [Mass/Vol] 0.5 mg/dL Normal 0.3-1.0 [facility] Comment on above: Performed By: #### C MP, CBC ####[facility] [address] [place] [address] [facility] Calcium [Mass/Vol] 7.1 mg/dL Low 8.6-10.3 [facility] Comment on above: Performed By: #### C MP, CBC ####[place] [address] [place] [id number] [facility] Chloride [Moles/Vol] 101 mmol/L Normal 98-107 [facility] Comment on above: Performed By: #### C MP, CBC ####[place] [address] [place] [id number] [facility] CO2 [Moles/Vol] 38.5 mmol/L High 21.0-31.0 [facility] Comment on above: Performed By: #### C MP, CBC ####[place] [address] [place] [address] [facility] Creatinine [Mass/Vol] 0.68 mg/dL Significan t change down 0.70-1.30 [facility] Comment on above: Performed By: #### C MP, CBC ####[place] [address] [place] [address] [facility] Creatinine Clr Calc Pharmacy 87.88 Normal [facility] Comment on above: Result Comment: PERF ORMED BY: [facility] [address] [place] [id number] PATHOLOGIST HEEL SEAT FILLER ABDIEL MTZ M.D. Performed By: #### C MP, CBC ####[place] [address] [place] [id number] [place] GFR/1.73 sq M.predicted MDRD (S/P/Bld) [Vol rate/Area] mL/min/{1.73_m2} Normal [facility] Comment on above: Performed By: #### C MP, CBC ####[address] [address] [facility] Globulin (S) [Mass/Vol] 2.4 g/dL Normal [facility] Comment on above: Performed By: #### C MP, CBC ####[address] [address] [facility] Glucose [Mass/Vol] 107 mg/dL High 70-100 [facility] Comment on above: Result Comment: [facility] Glucose Reference Range is dependent on time and content of last meal. Glucose of more than 200 mg/dL in a nonstressed, ambulatory subject supports the diagnosis of Diabetes Mellitus. ADA recommended reference range Performed By: #### C MP, CBC ####[address] [address] [facility] Potassium [Moles/Vol] 4.5 mmol/L Normal 3.5-5.1 [facility] Comment on above: Performed By: #### C MP, CBC ####[address] [address] [facility] Protein [Mass/Vol] 5.2 g/dL Low 6.4-8.9 [facility] Comment on above: Performed By: #### C MP, CBC ####[address] [address] [facility] Sodium [Moles/Vol] 139 mmol/L Normal 136-145 [facility] Comment on above: Performed By: #### C MP, CBC ####[address] [address] [facility] Urea nitrogen [Mass/Vol] 25 mg/dL Normal 7-25 [facility] Comment on above: Performed By: #### C MP, CBC ####[address] [address] [facility] ECG 12 lead ECGon 07-12-2022 ECG 12 lead ECG [facility] Main [place] [address] [place], [place] [id number] Electrocardiograph Report Signed Patient: Jaime Lechuga MR#: [id number] : 1955 Acct:[id number] Age/Sex: 66 / M ADM Date: 07/10/22 Loc: Room: [address] [place] [address] Type: DIS IN Attending Dr: Elvis Villarreal MD Ordering Provider: Iris Lassiter DO Date of Service: 07/12/22 ECG/ECG 12 lead ECG: EKG completed Copies to: Test Reason : Blood Pressure : / mmHG Vent. Rate : 157 BPM Atrial Rate : 150 BPM P-R Int : 000 ms QRS Dur : 112 ms QT Int : 308 ms P-R-T Axes : 000 139 050 degrees QTc Int : 497 ms Supraventricular tachycardia versus atrial flutter with 2:1 block Right bundle branch block Possible Lateral infarct , age undetermined Possible Inferior infarct , age undetermined Abnormal ECG compared t prior of [id number] @11:40, the tacyharrhythmia is new. Confirmed by ADAIR DAI MD ([id number]) on 07/20/2022 3:11:05 PM Referred By: Electronically Signed By:ADAIR DAI MD Transcribed By: MUS Signed By Adair Dai MD 1511 Normal [facility] ECG 12 lead ECG [facility] [place] [address] Electrocardiograph Report Signed Patient: Jaime Lechuga MR#: [id number] : 1955 Acct:[id number] Age/Sex: 66 / M ADM Date: 07/10/22 Loc: Room: [address] [place] [address] Type: DIS IN Attending Dr: Elvis Villarreal MD Ordering Provider: Iris Lassiter DO Date of Service: 07/12/22 ECG/ECG 12 lead ECG: EKG completed Copies to: Test Reason : Blood Pressure : / mmHG Vent. Rate : 117 BPM Atrial Rate : 136 BPM P-R Int : 000 ms QRS Dur : 108 ms QT Int : 334 ms P-R-T Axes : 000 147 020 degrees QTc Int : 465 ms Atrial fibrillation with rapid ventricular response Incomplete right bundle branch block Abnormal ECG Compared to prior of 11Jul2022, improvement of inferolateral STT wave abnormalities Confirmed by ADAIR DAI MD ([id number]) on 07/20/2022 3:08:37 PM Referred By: Electronically Signed By:ADAIR DAI MD Transcribed By: MUS Signed By Adair Dai MD 1508 Normal [facility] echo transthoracicon [facility] echo transthoracic [facility] Main [place] [address] [place] [address] Echocardiogram Signed Patient: Jaime Lechuga MR#: [id number] : 1955 Acct:[id number] Age/Sex: 66 / M ADM Date: 07/10/22 Loc: Room: [address] [place] [address] Type: ADM IN Attending Dr: Benji Gamez DO Ordering Provider: Jaziel Gomez MD Date of Service: 07/11/22 [facility] echo transthoracic: dyspnea Copies to: Jorge A Jimenez MD, [facility] Jaziel Gomez MD Height: 67.5 in Weight: 158 lb Performed By: Valentina Hanson RDCS BSA: 1.8 m2 BP: 128/62 mmHg HR: 79 Reason For Study: dyspnea History: Afib. HTN. PCI. Interpretation Summary The left ventricular size, thickness and function are normal Ejection Fraction = 65-70%. A variety of Doppler measurements indicate normal left ventricular diastolic function. The right ventricle has mild dilatation with severe hypokinesis mostly affecting the distal segments of the free wall Moderately dilated inferior vena cava There is no prior echocardiogram noted for this patient. Procedure/Quality: A two-dimensional transthoracic echocardiogram with color flow, Doppler and injection of contrast agent Definity was performed. The study was technically fair in quality. There is no prior echocardiogram noted for this patient. Left Ventricle: The left ventricular size, thickness and function are normal. Ejection Fraction = 65-70%. A variety of Doppler measurements indicate normal left ventricular diastolic function. Left Atrium: The left atrium appears normal in size. The atrial septum appears normal. Right Atrium: The right atrium appears normal in size. Right Ventricle: The right ventricle has mild dilatation with severe hypokinesis mostly affecting the distal segments of the free wall. Aortic Valve: The aortic valve is normal in structure and function. Mitral Valve: The mitral valve is normal in structure and function. Tricuspid Valve: The tricuspid valve is normal in structure and function. Pulmonic Valve: The pulmonic valve is not well seen, but is grossly normal. Arteries: The aortic root is normal size. Pericardium/Pleura: Trivial pericardial effusion. There is no pleural effusion. IVC/Hepatic Viens: Moderately dilated inferior vena cava. Miscellaneous: No thrombus, vegetation or mass is seen. Measurements with Normals IVSd: 0.70 cm (0.7-1.1 cm)LVIDd: 5.0 cm (3.7-5.4 cm) LVPWd: 0.89 cm (0.7-1.1 cm)LVIDs: 2.7 cm (2.3-3.6 cm) LA dimension: 3.8 cm (2.3-4.0 cm)Ao root diam: 3.4 cm(2.0-3.6 cm) asc Aorta Diam: 3.4 cm(2.1-3.4cm) Doppler with Normals LV V1 max: 114.5 cm/sec (0.7-1.7m/s)MV E max pop: 118.0 cm/sec(0.8-1.3m/s) MV A max pop: 87.0 cm/sec(0.0-0.0m/s) MV E/A: 1.4 (<1.5) MMode/2D Measurements Calculations TAPSE: 2.8 cm FS: 46.9 % Ao root area: LVOT diam: 2.4 cm RV S Pop: EDV(Teich): 9.0 cm2 LVOT area: 4.5 cm2 14.6 cm/sec 118.4 ml ESV(Teich): 26.0 ml EF(Teich): 78.1 % __ LVLd ap4: 7.5 cm SV(MOD-sp4): LAV(MOD-sp4): LA A2 area: 14.1 cm2 EDV(MOD-sp4): 69.4 ml 22.6 ml 98.6 ml LAV(MOD-sp2): LA A4 area: 11.5 cm2 LVLs ap4: 6.9 cm 31.0 ml LA length (vol): ESV(MOD-sp4): 4.2 cm 29.2 ml LA vol: 32.8 ml EF(MOD-sp4): 70.4 % LA vol index: 17.8 ml/m2 Doppler Measurements Calculations MV dec time: E/E' lat: 9.0 MV dec slope: Ao V2 max: 0.26 sec E/E' med: 13.4 133.8 cm/sec 447.4 cm/sec2 Ao max P.2 mmHg Ao mean P.6 mmHg Ao V2 mean: 104.1 cm/sec Ao V2 VTI: 25.0 cm MEGHAN(I,D): 3.9 cm2 MEGHAN(V,D): 3.8 cm2 __ LV V1 max PG: RAP systole: 5.2 mmHg 15.0 mmHg LV V1 mean P.6 mmHg LV V1 mean: 75.7 cm/sec LV V1 VTI: 22.0 cm Transcribed By: SCV Performed At: 07/12/22 0724 Signed By: Jorge A Jimenez MD, [facility] 07/12/22 0955 Normal [facility] HCV Antibody Cascadeon 07-12 Hepatitis C Virus Antibody Non-Reactive Normal Non Amy ctive [facility] Comment on above: Order Comment: GO @O UT TODAY Performed By: #### P TT, PT #### [facility] [address] [place] [address] Interpretation Hepatitis C Normal . [facility] Comment on above: Order Comment: GO @O UT TODAY Result Comment: Not infected with HCV unless early or acute infection is suspected (which may be delayed in an immunocompromised individual), or other evidence exists to indicate HCV infection. Performed By: #### P TT, PT #### [facility] [address] [place] [address] [place] HIV 1/O/2 Antigen/Antibodyon 07-12-2022 HIV Screen 4th Generation Non-Reactive Normal Non Reac tive [facility] Comment on above: Order Comment: GO @O UT TODAY Result Comment: HIV Negative HIV-1/HIV-2 antibodies and HIV-1 p24 antigen were NOT detected. There is no laboratory evidence of HIV infection. Performed at: [place] [address] Substation Maintenance Technician: Martin Lala PhD, Phone: [phone] Performed By: #### S MAB #### [facility] , Hepatitis A Antibody IgMon 0 07-12-2022 Hepatitis A Antibody IgM Negative Normal Negative [facility] Comment on above: Order Comment: GO @O UT TODAY Result Comment: Perf ormed at: [place] [address] Substation Maintenance Technician: Martin Lala PhD, Phone: [employer] Performed By: #### P TT, PT #### [facility] [address] [place] [address] [place] Hepatitis A Antibody Totalon 07-12-2022 Hepatitis A Antibody Total Negative Normal Negative [facility] Comment on above: Order Comment: GO @O UT TODAY Performed By: #### P TT, PT #### [facility] [address] [place] [address] [place] Hepatitis B Core Antibodyon 07-12-2022 Hepatitis B Core Antibody Negative Normal Negative [facility] Comment on above: Order Comment: GO @O UT TODAY Performed By: #### P TT, PT #### [facility] [address] [place] [address] [place] Hepatitis B Surface Ab, Daniel ton 07-12-2022 Hepatitis B Surface Ab, Quant <3.1 Low Immuni ty>9.9 [facility] Comment on above: Order Comment: GO @O UT TODAY Result Comment: Stat us of Immunity Anti-HBs Level Inconsistent with Immunity 0.0 - 9.9 Consistent with Immunity >9.9 PERFORMED BY: [place] [address] PATHOLOGIST HEEL SEAT FILLER ABDIEL MTZ M.D. Performed By: #### P TT, PT #### [facility] [address] Hepatitis B Surface Antigeno n 07-12-2022 HBsAg Screen Negative Normal Negative [facility] Comment on above: Order Comment: GO @O NE TODAY Performed By: #### P TT, PT #### [facility] [address] [place] [address] Hereditary Hemochromatosis,D NAon 07-12-2022 Hereditary Hemochromatosis Normal [facility] Comment on above: Order Comment: GO @O NE TODAY Result Comment: Resu lt: c.845G>A (p.Nin642Wzo) - Not Detected c.187C>G (p.Goy84Ore) - Not Detected c.193A>T (p.Rdh27Itf) - Not Detected Not associated with increased risk to develop clinical symptoms of Hereditary Hemochromatosis. In symptomatic individuals, other causes of iron overload should be evaluated. See Additional Information and Comments. Additional Clinical Information: Hereditary hemochromatosis (HFE related) is an autosomal recessive iron storage disorder. Patients may have a genetic diagnosis of hereditary hemochromatosis and never show clinical symptoms. Clinical symptoms typically appear between 40 to 60 years in males and after menopause in females. Signs and symptoms may include organ damage, primarily in the liver, risk for hepatocellular carcinoma, diabetes, and heart disease due to iron accumulation. Life expectancy may be decreased in individuals who develop cirrhosis. Treatment for clinically symptomatic individuals may include therapeutic phlebotomy. Liver transplant may be used to treat end stage liver failure. For preventive care, monitoring for iron overload is recommended for patients who are homozygous for c.845G>A (p.Ext668Ced) and have yet to experience clinical symptoms. Comments: The most common HFE variants associated with hereditary hemochromatosis are c.845G>A (p.Irc742Hio), c.187C>G (p.Lvr22Cpn), c.193A>T (p.Wib52Exb). While patients homozygous for c.845G>A (p.Wbf954Dpm) are the most likely to present clinical symptoms, less than 10% develop clinically significant iron overload with tissue and organ damage. Genetic counseling is recommended to discuss the potential clinical implications of positive results, as well as recommendations for testing family members. Genetic Coordinators are available for health care providers to discuss results at [phone] ([phone]). Test Details: Three variants analyzed: c.845G>A (p.Sbh896Gnq), commonly referred to as C282Y c.187C>G (p.Ffs49Woi), commonly referred to as H63D c.193A>T (p.Jam19Chf), commonly referred to as S65C Methods/Limitations: DNA Analysis of the HFE gene (NM_000410.4) was performed by PCR amplification followed by restriction enzyme digestion analyses. Results must be combined with clinical information for the most accurate interpretation. Molecular-based testing is highly accurate, but as in any laboratory test, diagnostic errors may occur. False positive or false negative results may occur for reasons that include genetic variants, blood transfusions, bone marrow transplantation, somatic or tissue-specific mosaicism, mislabeled samples, or erroneous representation of family relationships. This test was developed and its performance characteristics determined by [employer]. It has not been cleared or approved by the Food and Drug Administration. References: Lux BR, Harry PC, Lamar KV, Joaquim LW, Tianna ; [place]. Diagnosis and management of hemochromatosis: 2011 practice guideline by the [place] [employer]. Hepatology. 2011 Aug;54(1):328-43. doi: 10.1002/hep.32519. PMID: 79768110; PMCID: NQS4351752. Jimmie G, Dillon P, Elen DW, Memo H, Shelly O, Han S, Keenan I, Tyrel M, Angel S. QN best practice guidelines for the molecular genetic diagnosis of hereditary hemochromatosis (HH). Eur J Hum [place]. 2016 May;24(4):479-95. doi: 10.1038/ejhg.2015.128. Epub 2014Sep 04. PMID: 96676050; PMCID: [id number]. Reviewed by: 03 Qiana Lin, PhD Director, Molecular Genetics Performing Labs 01: [facility] [address], [address] Dir: Martin Lala, PhD 02: BN - [facility] [place] [address] [place], [address] Dir: Scott Dumont MD 03: TG - [facility] SERVICE UNIT [address] [place], [address] Dir: Avi Matthew [facility] For Inquiries, the physician may contact Branch: [phone] Lab: [phone] PERFORMED BY: [facility] [address] [place] [address] PATHOLOGIST HEEL SEAT FILLER ABDIEL MTZ M.D. Performed By: #### S MAB #### [facility] , Immunoglobulin Chuy Immunoglobulin G 939 mg/dL Normal [phone] [facility] Comment on above: Order Comment: GO @O NE TODAY Result Comment: Perf ormed at: [address] [id number] Substation Maintenance Technician: Martin Lala PhD, Phone: [phone] Performed By: #### S MAB #### [facility] , Liver-Kidney Microsomal Abon 07-12-2022 Liver-Kidney Microsomal Ab <1.0 Normal 0.0-20.0 [facility] Comment on above: Order Comment: GO @O NE TODAY Result Comment: Nega tive 0.0 - 20.0 Equivocal 20.1 - 24.9 Positive >24.9 LKM type 1 antibodies are detected in patients with autoimmune hepatitis type 2 and in up to 8% of patients with chronic HCV infection. Performed By: #### S MAB #### [facility] , Mitochondrial (M2) Antibodyo n 07-12-2022 Mitochondrial (M2) Antibody <20.0 Normal 0.0-20.0 [facility] Comment on above: Order Comment: GO @O NE TODAY Result Comment: Nega tive 0.0 - 20.0 Equivocal 20.1 - 24.9 Positive >24.9 Mitochondrial (M2) Antibodies are found in 90-96% of patients with primary biliary cirrhosis. Performed at: [address] [id number] Substation Maintenance Technician: Martin Lala PhD, Phone: [phone] Performed By: #### P TT, PT #### [place] [address] [place] Smooth Muscle Antibodyon Smooth Muscle Antibody 14 Normal 0-19 [facility] Comment on above: Order Comment: GO @O NE TODAY Result Comment: Nega tive 0 - 19 Weak positive 20 - 30 Moderate to strong positive >30 Actin Antibodies are found in 52-85% of patients with autoimmune hepatitis or chronic active hepatitis and in 22% of patients with primary biliary cirrhosis. Performed at: [address] [id number] Substation Maintenance Technician: Martin Lala PhD, Phone: [phone] PERFORMED BY: [place] [address] PATHOLOGIST HEEL SEAT FILLER ABDIEL MTZ M.D. Performed By: #### S MAB #### [facility] , XR chest 1V portableon 07-12 XR chest 1V portable [facility] Main [place] [address] [place] [address] XRay Report Signed Patient: Jaime Lechuga MR#: [id number] : 1955 Acct:[id number] Age/Sex: 66 / M ADM Date: 07/10/22 Loc: Room: [address] [place] [address] Type: ADM IN Attending Dr: Elvis Villarreal MD Copies to: MD Jordan Colunga MD Ordering Provider: Jordan Lilly MD Date of Service: 07/12/22 XR/XR chest 1V portable: hypoxia XR chest 1V portable 07/11/2022 1:00 PM SIGNS AND SYMPTOMS: hypoxia PROTOCOL: Frontal radiograph of the chest COMPARISON: 07/10/2022 FINDINGS: The trachea is midline. There is a right subclavian line which is unchanged in position. Calcified left hilar lymph nodes are redemonstrated. The heart and mediastinal structures are within normal limits. There is interstitial prominence with hazy airspace opacity similar to the prior exam. The bony thorax is intact. XR/XR chest 1V portable IMPRESSION: Unchanged chest. Impression dictated by: Gopal Mckinney M.D.07/12/2022 8:08 AM Dictation Location: [place] [address] Transcribed By: [facility] 07/12/22807 Dictated By: Gopal Mckinney II, MD 07/12/22805 Signed By: 07/12/22807 Normal [facility] B-Type Natriuretic Peptideon 07-11-2022 Natriuretic peptide B (Bld) [Mass/Vol] 849.0 pg/mL High 5-100 [facility] Comment on above: Order Comment: Comme nt Add on to previous lab draw Result Comment: PERF ORMED BY: [place] [address] PATHOLOGIST HEEL SEAT FILLER ABDIEL MTZ M.D. Performed By: #### B CONTACT CLERK ####[facility] [id number] [place] [address] CT abdomen pelvis wo conon 0 07-11-2022 CT abdomen pelvis wo con [facility] Main [place] [address] [place] [address] CT Scan Report Signed Patient: Jaime Lechuga MR#: [id number] : 1955 Acct:[id number] Age/Sex: 66 / M ADM Date: 07/10/22 Loc: Room: [address] [place] [address] Type: ADM IN Attending Dr: Elvis Villarreal MD Copies to: MD Iris Colunga MD Ordering Provider: Iris Holliday MD Date of Service: 07/10/22 CT/CT abdomen pelvis wo con: Rule out dissection ([id number]) CT/CT chest wo con: Rule out dissection CT chest wo con, CT abdomen pelvis wo con 07/10/2022 8:08 PM SIGN AND SYMPTOMS: Hypotension, bradycardia TECHNIQUE: Multidetector CT axial slices of the chest, abdomen and pelvis were obtainedwith IV contrast. Multiplanar reformats were performed and viewed on a separate workstation and reviewed to further define anatomy and possible pathology. CT was performed with one or more of the following dose reduction techniques: Automated exposure control, adjustment of the mA and/or kV according to patient size, or use of iterative reconstruction technique. COMPARISON: None. FINDINGS: Lower neck: Thyroid gland within normal limits, no supraclavicle adenopathy. Vessels: Atherosclerotic changes are present in the thoracic aorta and coronary arteries. Mediastinum and Justine: Calcified left mediastinal and bilateral hilar lymph nodes are noted. Heart: Normal size. No pericardial effusion. Airways: Within normal limits Lungs: Emphysematous changes are noted in the lung parenchyma. There is dependent atelectasis in the right lung base. Calcified granulomas are noted bilaterally. There is a noncalcified 11 mm nodule posteriorly in the right lower lobe. Pleura: There is a small right-sided pleural effusion. Chest Wall: Within normal limits. Abdomen: Liver: Calcified granulomas are noted in the liver. Bile Ducts: Normal caliber. Gallbladder: No calcified gallstones. Normal caliber wall. Pancreas: within normal limits. Spleen: Calcified granulomas are present in the spleen. Adrenals: within normal limits. Kidneys: within normal limits. Pelvis: Reproductive Organs: No pelvic masses. Ureters: within normal limits. Bladder: within normal limits. Bowel: Normal caliber. Mesenteric Lymph Nodes: No enlarged mesenteric lymph nodes. Peritoneum: Intra-abdominal ascites is present in the right upper quadrant and pelvis. Vessels: Atherosclerotic changes are noted throughout the abdominal aorta and its branches. There is evidence of prior stenting of the left common iliac artery.. Retroperitoneum: within normal limits. Abdominal Wall: within normal limits. Bones: Degenerative changes are noted in the thoracolumbar spine, hips, and sacroiliac joints. There is a dextro convex curvature of the thoracolumbar spine. CT/CT chest wo con IMPRESSION: Edematous changes are noted in the lung parenchyma. There is a small right-sided pleural effusion with dependent atelectasis at the right lung base. There is 11 mm noncalcified nodule in the right lower lobe posteriorly. Follow-up per Fleischner sided guidelines is recommended. Intra-abdominal ascites is noted. No bowel obstruction or obstructive uropathy. There is evidence of previous stenting of the left common iliac artery. Impression dictated by: Gopal Mckinney M.D.07/11/2022 9:34 AM Dictation Location: [place] [address] Transcribed By: [facility] 07/11/22933 Dictated By: Gopal Mckinney II, MD 07/11/22904 Signed By: 07/11/2234 [facility] CT head/brain wo conon 07-11 CT head/brain wo con [facility] [place] [address] CT Scan Report Signed Patient: Jaime Lechuga MR#: [id number] : 1955 Acct:[id number] Age/Sex: 66 / M ADM Date: 07/10/22 Loc: Room: [address] [place] [address] Type: ADM IN Attending Dr: Elvis Villarreal MD Copies to: MD Iris Colunag MD Ordering Provider: Iris Holliday MD Date of Service: 07/11/22 CT/CT head/brain wo con: Altered mental status CT head/brain wo con 07/11/2022 12:34 AM SIGNS AND SYMPTOMS: Increased confusion, garbled speech, altered mental status TECHNIQUE:Multi-detector CT axial slices of the brain were obtained without IV contrast. CT was performed with one or more of the following dose reduction techniques: Automated exposure control, adjustment of the mA and/or kV according to patient size, or use of iterative reconstruction technique. COMPARISON: None. FINDINGS: There is no shift of the midline structures, acute intracranial bleeding, mass effects, or evidence of acute ischemia. There is mild diffuse age-related cortical atrophy. The ventricular system is normal in size. The brainstem and the cerebellum are unremarkable. The visualized intraorbital contents, the visualized paranasal sinuses, and the infratemporal soft tissues show no acute abnormality. The osseous structures in the skull base and the calvarium show no abnormality. CT/CT head/brain wo con IMPRESSION: No acute intracranial pathology. Mild diffuse cortical atrophy. Impression dictated by: Gopal Mckinney M.D.07/11/2022 8:20 AM Dictation Location: [place] [address] Transcribed By: [facility] 07/11/22819 Dictated By: Gopal Mckinney II, MD 07/11/22815 Signed By: 07/11/22819 Normal [facility] Coagulation Profileon 2022 aPTT Coag (Bld) [Time] 29.5 s Normal 25.1-36.5 [facility] Comment on above: Result Comment: PERF ORMED BY: [facility] [address] [place] [address] PATHOLOGIST HEEL SEAT FILLER ABDIEL MTZ M.D. Performed By: #### S MAB #### [facility] , INR Coag (PPP) [Relative time] 3.1 {INR} Normal [facility] Comment on above: Result Comment: INR Therapeutic Range A) Pre- and Peroperative OAT started two weeks before surgery. NOT HIP SURGERY: 1.5 - 2.5 HIP SURGERY: 2 - 3 B) Primary and secondary prevention of venous THROMBOSIS: 2 - 3 C) Active venous thrombosis, pulmonary embolism and prevention of recurrent venous thrombosis: 2 - 3 D) Prevention of arterial thromboembolism including patients with mechanical heart valves: 3 - 4.5 Performed By: #### S MAB #### [facility] , PT Coag (PPP) [Time] 36.0 s High 9.0-12.9 [facility] Comment on above: Performed By: #### S MAB #### [facility] , Complete Blood Count Auto Di ffon 07-11-2022 Basophils (Bld) [#/Vol] 0.1 10*3/uL Normal 0.0-0.2 [facility] Comment on above: Result Comment: PERF ORMED BY: [facility] [address] [place] [address] PATHOLOGIST HEEL SEAT FILLER ABDIEL MTZ M.D. Performed By: #### M G, CMP, CBC ####[address] [address] [facility] Basophils/100 WBC (Bld) 0.6 % Normal . [facility] Comment on above: Performed By: #### M Rico, CMP, CBC ####[place] [id number] [facility] Eosinophils (Bld) [#/Vol] 0.0 10*3/uL Normal 0.0-0.45 [facility] Comment on above: Performed By: #### M iRco, CMP, CBC ####[place] [id number] [facility] Eosinophils/100 WBC (Bld) 0.1 % Normal . [facility] Comment on above: Performed By: #### M Rico, CMP, CBC ####[place] [id number] [facility] Erythrocyte distribution wid th (RBC) [Ratio] 17.6 % High 12.0-14.8 [facility] Comment on above: Performed By: #### M Rico, CMP, CBC ####[place] [id number] [facility] Hematocrit (Bld) [Volume fraction] 23.2 % Low 38.8-50.0 [facility] Comment on above: Performed By: #### M Rico, CMP, CBC ####[place] [id number] [facility] Hemoglobin (Bld) [Mass/Vol] 7.1 g/dL Low 13.0-17. 0 [facility] Comment on above: Performed By: #### M Rico, CMP, CBC ####[place] [id number] [facility] Lymphocytes (Bld) [#/Vol] 1.1 10*3/uL Normal 1.00-4.8 [facility] Comment on above: Performed By: #### M Rico, CMP, CBC ####[place] [id number] [facility] Lymphocytes/100 WBC (Bld) 8.9 % Normal . [facility] Comment on above: Performed By: #### M Rico, CMP, CBC ####[address] [address] [facility] MCH (RBC) [Entitic mass] 23.9 pg Low 27.5-35.2 [facility] Comment on above: Performed By: #### Holly Gómez, CMP, CBC ####[address] [address] [facility] MCV (RBC) [Entitic vol] 78.6 fL Low 83.5-[address] [facility] Comment on above: Performed By: #### Holly Gómez, CMP, CBC ####[address] [address] [facility] Mean Corpuscular HGB Conc 30.4 g/dL Low 32.5-35.6 [facility] Comment on above: Performed By: #### Holly Gómez, CMP, CBC ####[place] [id number] [facility] Monocytes (Bld) [#/Vol] 1.1 10*3/uL High 0.0-0.8 [facility] Comment on above: Performed By: #### Holly Gómez, CMP, CBC ####[place] [id number] [facility] Monocytes/100 WBC (Bld) 8.8 % Normal . [facility] Comment on above: Performed By: #### Holly Gómez, CMP, CBC ####[place] [id number] [facility] Neutrophils (Bld) [#/Vol] 9.8 10*3/uL High 1.8-7.7 [facility] Comment on above: Performed By: #### Holly G, CMP, CBC ####[place] [id number] [facility] Neutrophils/100 WBC (Bld) 81.6 % Normal . [facility] Comment on above: Performed By: #### M G, CMP, CBC ####[address] [address] [facility] NRBC% 0.5 /100{WBC} Normal 0-0.5 [facility] Comment on above: Performed By: #### M Rico, CMP, CBC ####[place] [id number] [facility] Platelet mean volume (Bld) [Entitic vol] 9.6 fL Normal 6.6-10.1 [facility] Comment on above: Performed By: #### Holly Gómez, CMP, CBC ####[place] [id number] [facility] Platelets (Bld) [#/Vol] 147 10*3/uL Low 150-450 [facility] Comment on above: Performed By: #### Holly Gómez CMP, CBC ####[address] RBC (Bld) [#/Vol] 2.96 10*6/uL Low 3.90-5.60 [facility] Comment on above: Performed By: #### Holly Gómez CMP, CBC ####[place] [id number] [facility] WBC (Bld) [#/Vol] 12.0 10*3/uL High 4.1-10.5 [facility] Comment on above: Performed By: #### Holly Gómez CMP, CBC ####[place] [id number] [facility] Comprehensive Metabolic Pane eunice 07-11-2022 Albumin [Mass/Vol] 2.8 g/dL Low 3.5-5.7 [facility] Comment on above: Performed By: #### Holly Gómez, CMP, CBC ####[place] [id number] [facility] Albumin/Globulin [Mass ratio] 1.1 {ratio} Normal [facility] Comment on above: Performed By: #### Holly Gómez CMP, CBC ####[place] [id number] [facility] ALP [Catalytic activity/Vol] 204 U/L High 34-104 [facility] Comment on above: Performed By: #### Holly Gómez, CMP, CBC ####[facility] [address] [place] [address] [facility] ALT [Catalytic activity/Vol] 804 U/L High 7-52 [facility] Comment on above: Performed By: #### Holly Gómez CMP, CBC ####[facility] [place] [address] [facility] Anion gap [Moles/Vol] 11.1 mmol/L Normal 6.0-15.0 [facility] Comment on above: Performed By: #### Holly Gómez CMP, CBC ####[facility] [address] [place] [address] [facility] AST [Catalytic activity/Vol] 1033 U/L High 13-39 [facility] Comment on above: Performed By: #### Holly Gómez CMP, CBC ####[facility] [address] [place] [address] [facility] Bilirubin [Mass/Vol] 0.8 mg/dL Normal 0.3-1.0 [facility] Comment on above: Performed By: #### Holly Gómez CMP, CBC ####[facility] [address] [place] [address] [facility] Calcium [Mass/Vol] 6.9 mg/dL Low 8.6-10.3 [facility] Comment on above: Performed By: #### Holly Gómez CMP, CBC ####[place] [address] [place] [address] [facility] Chloride [Moles/Vol] 100 mmol/L Normal 98-107 [facility] Comment on above: Performed By: #### Holly Gómez CMP, CBC ####[facility] [address] [place] [address] [facility] CO2 [Moles/Vol] 30.7 mmol/L Normal 21.0-31.0 [facility] Comment on above: Performed By: #### Holly Gómez CMP, CBC ####[facility] [address] [place] [address] [facility] Creatinine [Mass/Vol] 1.66 mg/dL Significant change up 0.7 0-1.30 [facility] Comment on above: Performed By: #### M G, CMP, CBC ####[facility] [place] [address] [facility] Creatinine Clr Calc Pharmacy 42.35 [facility] Comment on above: Performed By: #### Holly Gómez CMP, CBC ####[place] [address] [place] [address] [facility] GFR/1.73 sq M.predicted MDRD (S/P/Bld) [Vol rate/Area] 45.184 mL/min/{1.73_m2} Normal [facility] Comment on above: Performed By: #### Holly Gómez CMP, CBC ####[place] [address] [place] [address] [facility] Globulin (S) [Mass/Vol] 2.5 g/dL Normal [facility] Comment on above: Performed By: #### Holly Gómez CMP, CBC ####[place] [id number] [facility] Glucose [Mass/Vol] 88 mg/dL Normal 70-100 [facility] Comment on above: Result Comment: [facility] Glucose Reference Range is dependent on time and content of last meal. Glucose of more than 200 mg/dL in a nonstressed, ambulatory subject supports the diagnosis of Diabetes Mellitus. ADA recommended reference range Performed By: #### Holly Gómez CMP, CBC ####[place] [address] [place] [address] [facility] Potassium [Moles/Vol] 4.8 mmol/L Normal 3.5-5.1 [facility] Comment on above: Performed By: #### Holly Gómez CMP, CBC ####[place] [address] [place] [address] [facility] Protein [Mass/Vol] 5.3 g/dL Low 6.4-8.9 [facility] Comment on above: Performed By: #### Holly Gómez CMP, CBC ####[place] [address] [place] [id number] [facility] Sodium [Moles/Vol] 137 mmol/L Normal 136-145 [facility] Comment on above: Performed By: #### Holly Gómez CMP, CBC ####[facility] [address] [place] [address] [place] Urea nitrogen [Mass/Vol] 53 mg/dL High 7-25 [facility] Comment on above: Performed By: #### M G, CMP, CBC ####[place] [address] [place] [address] [place] Creatine Kinaseon 07-11-2022 CK [Catalytic activity/Vol] 146 U/L Normal 223 [facility] Comment on above: Performed By: #### S MAB #### [facility] , CK [Catalytic activity/Vol] 66 U/L Normal 30- [facility] Comment on above: Performed By: #### C K, HS TROP ####[place] [address] [place] [address] [place] Creatinine, Urine (Random)on 07-11-2022 Creatinine, Urine (Random) 163.0 mg/dL High 14.0-26. 0 [facility] Comment on above: Order Comment: Comme nt add on Result Comment: PERF ORMED BY: [facility] [address] [facility] [address] [place] [address] PATHOLOGIST HEEL SEAT FILLER ABDIEL MTZ M.D. Performed By: #### U EOS, UROSMO, UCREA ####[address] [address] [facility] Dipstick and Microscopicon 0 07-11-2022 Appearance (U) Cloudy Critically abnormal Clear [facility] Comment on above: Order Comment: Name Collection Type:: Moeller Catheter Performed By: #### A DDONUAPLUS, CUU ####[place] [address] [place] [address] [place] Bacteria,Urine None Seen Normal None Seen [facility] Comment on above: Order Comment: Name Collection Type:: Moeller Catheter Performed By: #### A DDONUAPLUS, CUU ####[place] [address] [place] [address] [place] Bilirubin,Urine 1+ High Negative [facility] Comment on above: Order Comment: Name Collection Type:: Moeller Catheter Performed By: #### A DDONUAPLUS, CUU ####[place] [address] [place] [address] [facility] Color (U) Dark Yellow Critically abnormal Yellow [facility] Comment on above: Order Comment: Name Collection Type:: Moeller Catheter Performed By: #### A DDONUAPLUS, CUU ####[place] [address] [place] [address] [facility] Glucose Ql (U) Normal Normal Normal [facility] Comment on above: Order Comment: Name Collection Type:: Moeller Catheter Performed By: #### A DDONUAPLUS, CUU ####[place] [address] [place] [address] [place] Hyaline Casts,Urine 9-19 High 0-8 [facility] Comment on above: Order Comment: Name Collection Type:: Moeller Catheter Result Comment: PERF ORMED BY: [facility] [address] [place] [id number] PATHOLOGIST HEEL SEAT FILLER ABDIEL MTZ M.D. Performed By: #### A DDONUAPLUS, CUU ####[place] [address] [place] [address] [facility] Ketones Ql (U) Trace High Negative [facility] Comment on above: Order Comment: Name Collection Type:: Moeller Catheter Performed By: #### A DDONUAPLUS, CUU ####[place] [address] [place] [address] [facility] Leukocyte esterase Test stri p Ql (U) 1+ High Negative [facility] Comment on above: Order Comment: Name Collection Type:: Moeller Catheter Performed By: #### A DDONUAPLUS, CUU ####[place] [address] [place] [address] [place] Nitrite,Urine Negative Normal Negative [facility] Comment on above: Order Comment: Name Collection Type:: Moeller Catheter Performed By: #### A DDONUAPLUS, CUU ####[place] [address] [place] [address] [place] Occult Blood,Urine Negative Normal Negative [facility] Comment on above: Order Comment: Name Collection Type:: Moeller Catheter Result Comment: PERF ORMED BY: [facility] [address] [place] [id number] PATHOLOGIST HEEL SEAT FILLER ABDIEL MTZ M.D. Performed By: #### A DDONUAPLUS, CUU ####[address] [address] [facility] pH (U) 5.0 [pH] Normal 5.0-9.0 [facility] Comment on above: Order Comment: Name Collection Type:: Moeller Catheter Performed By: #### A DDONUAPLUS, CUU ####[address] [address] [facility] Protein (U) [Mass/Vol] 100 mg/dL High Negative [facility] Comment on above: Order Comment: Name Collection Type:: Moeller Catheter Performed By: #### A DDONUAPLUS, CUU ####[address] [address] [facility] RBC,Urine 5-9 High 0-4 [facility] Comment on above: Order Comment: Name Collection Type:: Moeller Catheter Performed By: #### A DDONUAPLUS, CUU ####[address] [address] [facility] Renal Epithelial Cells,Urine 3-4 High 0-1 [facility] Comment on above: Order Comment: Name Collection Type:: Moeller Catheter Performed By: #### A DDONUAPLUS, CUU ####[address] [address] [facility] Specificy [place],Urine 1.020 Normal 1.001-1.030 [facility] Comment on above: Order Comment: Name Collection Type:: Moeller Catheter Performed By: #### A DDONUAPLUS, CUU ####[address] [address] [facility] Squamous Epithelial Cell,Urine 3-4 High 0-2 [facility] Comment on above: Order Comment: Name Collection Type:: Moeller Catheter Performed By: #### A DDONUAPLUS, CUU ####[facility] [address] [place] [address] [facility] Urobilinogen,Urine Normal Normal Normal [facility] Comment on above: Order Comment: Name Collection Type:: Moeller Catheter Performed By: #### A DDONUAPLUS, CUU ####[facility] [address] [place] [address] [facility] WBC,Urine 5-9 High 0-4 [facility] Comment on above: Order Comment: Name Collection Type:: Moeller Catheter Performed By: #### A DDONUAPLUS, CUU ####[place] [id number] [place] [address] [facility] ECG 12 lead ECGon 07-11-2022 ECG 12 lead ECG [facility] [place] [address] Electrocardiograph Report Signed Patient: Jaime Lechuga MR#: [id number] : 1955 Acct:[id number] Age/Sex: 66 / M ADM Date: 07/10/22 Loc: Room: [address] [place] [address] Type: ADM IN Attending Dr: Elvis Villarreal MD Ordering Provider: Iris Lassiter DO Date of Service: 07/11/22 ECG/ECG 12 lead ECG: Admission strip Copies to: Test Reason : Blood Pressure : / mmHG Vent. Rate : 059 BPM Atrial Rate : 059 BPM P-R Int : 148 ms QRS Dur : 112 ms QT Int : 414 ms P-R-T Axes : 075 108 -85 degrees QTc Int : 409 ms Sinus bradycardia Right bundle branch block T wave abnormality, consider inferolateral ischemia Abnormal ECG No previous ECGs available Confirmed by SRINIVAS MARTIN DO ([id number]) on 07/11/2022 11:31:04 AM Referred By: Electronically Signed By:SRINIVAS MARTIN DO Transcribed By: MUS Signed By Srinivas Martin DO 07/11 1131 Normal [facility] Eosinophil,Urineon 3 Eosinophil,Urine 0 % Normal 0-1 [facility] Comment on above: Order Comment: Comme nt add on Result Comment: PERF ORMED BY: [facility] [address] [place] [address] PATHOLOGIST HEEL SEAT FILLER ABDIEL MTZ M.D. Performed By: #### U EOS, UROSMO, UCREA ####[place] [id number] [facility] Lactic Acidon 07-11-2022 Lactate [Moles/Vol] 2.9 mmol/L Off scale high 0.5-2.2 [facility] Comment on above: Result Comment: Crit ical Result : Called to and read back by: HEBERT QUISPE at: 07/11/2022 00:43:09 by:[id number] PERFORMED BY: [address] [place] [address] PATHOLOGIST HEEL SEAT FILLER ABDIEL MTZ M.D. Performed By: #### L ACTIC ####[place] [id number] [facility] Lactic Acid Reflexon 023 Lactic Acid Reflex 0.5 mmol/L Normal 0.5-2.2 [facility] Comment on above: Result Comment: PERF ORMED BY: [address] [place] [address] PATHOLOGIST HEEL SEAT FILLER ABDIEL MZT M.D. Performed By: #### L ACTIC RFX ####[place] [id number] [facility] Magnesiumon 07-11-2022 Magnesium [Mass/Vol] 2.0 mg/dL Normal 1.9-2.7 [facility] Comment on above: Result Comment: PERF ORMED BY: [facility] [address] [place] [address] PATHOLOGIST HEEL SEAT FILLER ABDIEL MTZ M.D. Performed By: #### M G, CMP, CBC ####[place] [id number] [facility] Osmolality, Urineon 07-12-19 23 Osmolality, Urine 492 mosm Normal 250-900 [facility] Comment on above: Order Comment: Comme nt add on Result Comment: PERF ORMED BY: [facility] [address] [place] [phone] PATHOLOGIST HEEL SEAT FILLER ABDIEL MTZ M.D. Performed By: #### U EOS, UROSMO, UCREA ####[place] [id number] [place] Sodium, Urineon 07-11-2022 Sodium (U) [Moles/Vol] 39.0 mmol/L Normal [facility] Comment on above: Order Comment: Comme nt add on Result Comment: No r eference range established PERFORMED BY: [place] [phone] PATHOLOGIST HEEL SEAT FILLER ABDIEL MTZ M.D. Performed By: #### U RNA ####[address] Troponin I High Sensitivityo n 07-11-2022 Troponin I High Sensitivity 43.8 pg/mL High 0.0-20.0 [facility] Comment on above: Result Comment: PERF ORMED BY: [place] [phone] PATHOLOGIST HEEL SEAT FILLER ABDIEL MTZ M.D. Performed By: #### S MAB #### [facility] , Troponin I High Sensitivity 52.4 pg/mL Off scale high 0.0-20.0 [facility] Comment on above: Result Comment: Crit ical Result : Called to and read back by: CANDY PEREIRA at: 07/11/2022 03:27:35 by:[id number] PERFORMED BY: [phone] PATHOLOGIST HEEL SEAT FILLER ABDIEL MTZ M.D. Performed By: #### C K, HS TROP ####[place] [phone] [facility] US abdomen limitedon 023 US abdomen limited [facility] Main [place] [address] [place] [address] [id number] Ultrasound Report Signed Patient: Jaime Lechuga MR#: [id number] : 1955 Acct:[id number] Age/Sex: 66 / M ADM Date: 07/10/22 Loc: Room: [address] [place] [address] Type: ADM IN Attending Dr: Elvis Villarreal MD Ordering Provider: Iris Lassiter DO Date of Service: 07/11/22 US/US abdomen limited: LFT elevation Copies to: MD Iris Colunga DO EXAMINATION TYPE: US abdomen limited DATE OF EXAM ORDERED: 07/10/2022 11:53 PM HISTORY: Elevated liver enzymes COMPARISON: NONE TECHNIQUE: Realtime imaging limited to the right upper quadrant was performed. FINDINGS: The gallbladder appears within normal limits without evidence of cholelithiasis. The gallbladder wall measures 2 mm in thickness. The common bile but measures 2 mm in diameter. No intrahepatic or extrahepatic biliary dilatation is seen. The liver is normal in echo reflectivity. There is hepatopedal flow the main portal vein. Partial visualization of the right kidney reveals no gross hydronephrosis. Partial visualization of the pancreas reveals no abnormality. ? US/US abdomen limited IMPRESSION: Normal right upper quadrant ultrasound. Impression dictated by: Gopal Mckinney M.D.07/11/2022 10:17 AM Dictation Location: [place] [address] Tech: [facility] Transcribed By: [facility] 07/11/22 1017 Dictated By: Gopal Mckinney II, MD 07/11/22 1015 Signed By: 07/11/22 1017 [facility] Urine Cultureon 07-11-2022 Bacteria identified Cx Nom (U) <9,000 colonies/ml mixed bacterial skin contaminants 2 Days PERFORMED BY: [facility] [address] [place] [address] PATHOLOGIST HEEL SEAT FILLER ABDIEL MTZ M.D. [facility] Comment on above: Performed By: #### A CATALINA, CUU ####[facility] [address] [place] [address] [facility] XR chest 1V portableon 07-11 XR chest 1V portable [facility] Main [place] [address] [place] [address] XRay Report Signed Patient: Jaime Lechuga MR#: [id number] : 1955 Acct:[id number] Age/Sex: 66 / M ADM Date: 07/10/22 Loc: Room: [address] [place] [address] Type: ADM IN Attending Dr: Elvis Villarreal MD Copies to: MD Iris Colunga MD Ordering Provider: Iris Holliday MD Date of Service: 07/10/22 XR/XR chest 1V portable: Arrhythmia/Palpitations XR chest 1V portable 07/10/2022 9:40 PM SIGNS AND SYMPTOMS: Bradycardia, hypotension, central line placement PROTOCOL: Frontal radiograph of the chest COMPARISON: Radiograph from earlier on the same date FINDINGS: The trachea is midline. There has been interval placement of a right subclavian line with the tip in the cavoatrial junction. No pneumothorax. The heart and mediastinal structures are within normal limits. Calcified left hilar lymph nodes are noted. There is interstitial prominence bilaterally. The bony thorax is intact. XR/XR chest 1V portable IMPRESSION: Interval placement of a right subclavian line which is in satisfactory position. No pneumothorax. Impression dictated by: Gopal Mckinney M.D.07/11/2022 10:45 AM Dictation Location: [place] [address] Transcribed By: [facility] 07/11/22 1045 Dictated By: Gopal Mckinney II, MD 07/11/22 1044 Signed By: 07/11/22 1045 [facility] XR chest 1V portable [facility] Main [address] [address] XRay Report Signed Patient: Jaime Lechuga MR#: [id number] : 1955 Acct:[id number] Age/Sex: 66 / M ADM Date: 07/10/22 Loc: 4C Room: [address] [place] [address] Type: ADM IN Attending Dr: Elvis Villarreal MD Copies to: ElvisMD Iris Sharif MD Ordering Provider: Iris Holliday MD Date of Service: 07/10/22 XR/XR chest 1V portable: Arrhythmia/Palpitations XR chest 1V portable 07/10/2022 7:25 PM SIGNS AND SYMPTOMS: Bradycardia, hypotension PROTOCOL: Frontal radiograph of the chest COMPARISON: None. FINDINGS: The trachea is midline. Calcified left hilar lymph nodes are present. The heart and mediastinal structures are within normal limits. The lung parenchyma is clear. The bony thorax is intact. XR/XR chest 1V portable IMPRESSION: No acute cardiopulmonary pathology. Impression dictated by: Gopal Mckinney M.D.07/11/2022 7:33 AM Dictation Location: [place] [address] Transcribed By: [facility] 07/11/22 0733 Dictated By: Gopal Mckinney II, MD 07/11/22 0731 Signed By: 07/11/22 0733 Normal [facility] ABO/Rh Retypeon 07-10-2022 ABO/RH Recheck Result Positive Normal [facility] Comment on above: Result Comment: PERF ORMED BY: [facility] [address] [place] [address] PATHOLOGIST HEEL SEAT FILLER ABDIEL MTZ M.D. Activated partial thrombopla stin time (aPTT) in platelet poor plasma by coagulation aOrdered By: Iris Holliday on 07-10-2022 aPTT Coag (PPP) [Time] 28.7 s 25.1-36.5 [facility] Alanine aminotransferase [En zymatic activity/volume] in Serum or PlasmaOrdered By: Iris Holliday on 07-10-2022 ALT [Catalytic activity/Vol] 615 U/L 7-52 [facility] Albumin [Mass/volume] in Ser um or Plasma by Bromocresol green (BCG) dye binding methoOrdered By: Iris Holliday on 07-10-2022 Albumin BCG dye [Mass/Vol] 3.3 g/dL 3.5-5.7 [facility] Alkaline phosphatase [Enzyma tic activity/volume] in Serum or PlasmaOrdered By: Iris Holliday on 07-10-2022 ALP [Catalytic activity/Vol] 235 U/L 34-104 [facility] Anisocytosis LM Ql (Bld)Orde red By: Iris Holliday on 07-10-2022 Anisocytosis Ql (Bld) Slight [facility] Arterial Blood Gason 023 ABG Base Excess -0.2 mmol/L Normal -3.0-3.0 [facility] Comment on above: Performed By: #### A BG ####Point of Care testing, ABG Frac Inspired O2 28 % Normal [facility] Comment on above: Performed By: #### A BG ####Point of Care testing, ABG Liter Flow 2 Normal [facility] Comment on above: Performed By: #### A BG ####Point of Care testing, ABG Oxygen Content 4.4 mmol/L Low 6.6-9.7 [facility] Comment on above: Performed By: #### A BG ####Point of Care testing, ABG Oxygen Saturation 82.7 % Low 95.0-100.0 [facility] Comment on above: Performed By: #### A BG ####Point of Care testing, ABG PCO2 48.0 mm[Hg] High 35.0-45.0 [facility] Comment on above: Performed By: #### A BG ####Point of Care testing, ABG PH 7.35 Normal 7.35-7.45 [facility] Comment on above: Performed By: #### A BG ####Point of Care testing, ABG PO2 54.7 mm[Hg] Low 80.0-100.0 [facility] Comment on above: Performed By: #### A BG ####Point of Care testing, CO2 [Moles/Vol] 27.1 mmol/L High 23.0-27.0 [facility] Comment on above: Performed By: #### A BG ####Point of Care testing, HCO3 (Bld) [Moles/Vol] 25.7 mmol/L Normal 23.0-29.0 [facility] Comment on above: Performed By: #### A BG ####Point of Care testing, Oxygen Device Nasal Cannula [facility] Comment on above: Performed By: #### A BG ####Point of Care testing, Respiratory Critical [facility] Comment on above: Result Comment: Amena ical Value called on: 07/10/2022 at 20:40 PERFORMED BY: [facility] [place] [address] PATHOLOGIST HEEL SEAT FILLER ABDIEL MTZ M.D. Performed By: #### A BG ####Point of Care testing, VBG Draw Site Left Radial [facility] Comment on above: Performed By: #### A BG ####Point of Care testing, ABG Base Excess -3.2 mmol/L Low -3.0-3.0 [facility] Comment on above: Performed By: #### A BG ####Point of Care testing, ABG Frac Inspired O2 28 % [facility] Comment on above: Performed By: #### A BG ####Point of Care testing, ABG Liter Flow 2 [facility] Comment on above: Performed By: #### A BG ####Point of Care testing, ABG Oxygen Content 4.1 mmol/L Low 6.6-9.7 [facility] Comment on above: Performed By: #### A BG ####Point of Care testing, ABG Oxygen Saturation 77.6 % Low 95.0-100.0 [facility] Comment on above: Performed By: #### A BG ####Point of Care testing, ABG PCO2 44.3 mm[Hg] Normal 35.0-45.0 [facility] Comment on above: Performed By: #### A BG ####Point of Care testing, ABG PH 7.33 Low 7.35-7.45 [facility] Comment on above: Performed By: #### A BG ####Point of Care testing, ABG PO2 50.8 mm[Hg] Low 80.0-100.0 [facility] Comment on above: Performed By: #### A BG ####Point of Care testing, CO2 [Moles/Vol] 24.0 mmol/L Normal 23.0-27.0 [facility] Comment on above: Performed By: #### A BG ####Point of Care testing, HCO3 (Bld) [Moles/Vol] 22.6 mmol/L Low 23.0-29.[address] [facility] Comment on above: Performed By: #### A BG ####Point of Care testing, Oxygen Device Nasal Cannula Normal [facility] Comment on above: Performed By: #### A BG ####Point of Care testing, Respiratory Critical Normal [facility] Comment on above: Result Comment: Crit ical Value called on: 07/10/2022 at 20:30 PERFORMED BY: [facility] [address] [place] [address] PATHOLOGIST HEEL SEAT FILLER ABDIEL MTZ M.D. Performed By: #### A BG ####Point of Care testing, VBG Draw Site Right Radial Normal [facility] Comment on above: Performed By: #### A BG ####Point of Care testing, Aspartate aminotransferase [ Enzymatic activity/volume] in Serum or PlasmaOrdered By: Iris Holliday on 07-10-2022 AST [Catalytic activity/Vol] 789 U/L [facility] Automated erythrocytes count in urine sediment (number/area)Ordered By: Iris Holliday on 07-10-2022 RBC Auto (Urine sed) [#/Area] 5-9 [HPF] 0-4 [facility] Automated leukocytes count i n urine sediment (number/area)Ordered By: Iris Holliday on 07-10-2022 WBC Auto (Urine sed) [#/Area] 5-9 [HPF] 0-4 [facility] Basophils Auto (Bld) [#/Vol] Ordered By: Iris Holliday on 07-10-2022 Basophils (Bld) [#/Vol] 0.1 10*3/uL 0.0-0.2 [facility] Basophils/100 WBC Auto (Bld) Ordered By: Iris Holliday on 07-10-2022 Basophils/100 WBC (Bld) 0.6 % . [facility] Bilirubin Test strip Ql (U)O rdered By: Iris Holliday on 07-10-2022 Bilirubin Ql (U) 1+ Negative [facility] Bilirubin.total [Mass/volume ] in Serum or PlasmaOrdered By: Iris Holliday on 07-10-2022 Bilirubin [Mass/Vol] 1.3 mg/dL 0.3-1.0 [facility] Comment on above: Samples from patient s who have taken Naproxen have shown spurious elevation in Total Bilirubin levels. A metabolite of Naproxen, O-desmethylnaproxen, has been shown to interfere with the Jendrassik-Grof method for measuring Total Bilirubin. Blood Cultureon 07-10-2022 Bacteria identified Cx Nom (Bld) NO GROWTH 5 DAYS PERFORMED BY: [place] [address] PATHOLOGIST HEEL SEAT FILLER ABDIEL MTZ M.D. [facility] Comment on above: Performed By: #### D IG, CUBLD ####[facility] [id number] [place] [address] Calcium [Mass/volume] in Ser um or PlasmaOrdered By: Iris Holliday on 07-10-2022 Calcium [Mass/Vol] 7.1 mg/dL 8.6-10.3 [facility] Carbon dioxide, total [Moles /volume] in Serum or PlasmaOrdered By: Iris Holliday on 07-10-2022 CO2 [Moles/Vol] 26.6 mmol/L 21.0-31.0 [facility] Chloride [Moles/volume] in S aakash or PlasmaOrdered By: Iris Holliday on 07-10-2022 Chloride [Moles/Vol] 93 mmol/L 98-107 [facility] Color Auto (U)Ordered By: Cindy Holliday on 07-10-2022 Color (U) Dark yellow Yellow [facility] Comprehensive Metabolic Pane eunice 07-10-2022 Albumin [Mass/Vol] 3.3 g/dL Low 3.5-5.7 [facility] Comment on above: Performed By: #### C MP, CBC #### [facility] [address] [place] [address] Albumin/Globulin [Mass ratio] 1.0 {ratio} Normal [facility] Comment on above: Performed By: #### C MP, CBC #### [facility] [address] ALP [Catalytic activity/Vol] 235 U/L High 34-104 [facility] Comment on above: Performed By: #### C MP, CBC #### [facility] [address] [place] [id number] [facility] ALT [Catalytic activity/Vol] 615 U/L High 7-52 [facility] Comment on above: Performed By: #### C MP, CBC #### [facility] [address] Anion gap [Moles/Vol] 17.9 mmol/L High 6.0-15.0 [facility] Comment on above: Performed By: #### C MP, CBC #### [facility] [address] AST [Catalytic activity/Vol] 789 U/L High 13-39 [facility] Comment on above: Performed By: #### C MP, CBC #### [facility] [address] Bilirubin [Mass/Vol] 1.3 mg/dL High 0.3-1.0 [facility] Comment on above: Result Comment: Samp les from patients who have taken Naproxen have shown spurious elevation in Total Bilirubin levels. A metabolite of Naproxen, O-desmethylnaproxen, has been shown to interfere with the Jendrassik-Grof method for measuring Total Bilirubin. Performed By: #### C MP, CBC #### [facility] [address] [place] [address] [place] Calcium [Mass/Vol] 7.1 mg/dL Low 8.6-10.3 [facility] Comment on above: Performed By: #### C MP, CBC #### [facility] [address] [place] [id number] [place] Chloride [Moles/Vol] 93 mmol/L Low 98-107 [facility] Comment on above: Performed By: #### C MP, CBC #### [facility] [address] [place] [address] [place] CO2 [Moles/Vol] 26.6 mmol/L Normal 21.0-31.0 [facility] Comment on above: Performed By: #### C MP, CBC #### [facility] [address] Creatinine [Mass/Vol] 2.17 mg/dL High 0.70-1.30 [facility] Comment on above: Performed By: #### C MP, CBC #### [facility] [address] [place] [address] [place] Creatinine Clr Calc Pharmacy 31.35 [facility] Comment on above: Performed By: #### C MP, CBC #### [address] GFR/1.73 sq M.predicted MDRD (S/P/Bld) [Vol rate/Area] 32.762 mL/min/{1.73_m2} [facility] Comment on above: Performed By: #### C MP, CBC #### [address] Globulin (S) [Mass/Vol] 3.2 g/dL Normal [facility] Comment on above: Performed By: #### C MP, CBC #### [address] Glucose [Mass/Vol] 110 mg/dL High 70-100 [facility] Comment on above: Result Comment: [facility] Glucose Reference Range is dependent on time and content of last meal. Glucose of more than 200 mg/dL in a nonstressed, ambulatory subject supports the diagnosis of Diabetes Mellitus. ADA recommended reference range Performed By: #### C MP, CBC #### [facility] [address] Potassium [Moles/Vol] 5.5 mmol/L High 3.5-5.1 [facility] Comment on above: Performed By: #### C MP, CBC #### [address] [place] [address] [place] Protein [Mass/Vol] 6.5 g/dL Normal 6.4-8.9 [facility] Comment on above: Performed By: #### C MP, CBC #### [facility] [address] [place] [address] [place] Sodium [Moles/Vol] 132 mmol/L Low 136-145 [facility] Comment on above: Performed By: #### C MP, CBC #### [facility] [address] [place] [address] [place] Urea nitrogen [Mass/Vol] 59 mg/dL High 7-25 [facility] Comment on above: Performed By: #### C MP, CBC #### [facility] [address] [place] [id number] [place] Creatine Kinaseon 07-10-2022 CK [Catalytic activity/Vol] 53 U/L Normal 30- [facility] Comment on above: Performed By: #### C MP, CBC #### [facility] [address] [place] [address] [place] Creatine kinase [Enzymatic a ctivity/volume] in Serum or PlasmaOrdered By: Iris Holliday on 07-10-2022 CK [Catalytic activity/Vol] 53 U/L [facility] Creatinine [Mass/volume] in Serum or PlasmaOrdered By: Iris Holliday on 07-10-2022 Creatinine [Mass/Vol] 2.17 mg/dL 0.70-1.30 [facility] D-Dimer High Sensitivityon 0 07-10-2022 D-Dimer High Sensitivity 1944 ng/mL High 0-243 [facility] Comment on above: Result Comment: The reference range for D-dimer is <243 ng/mL D-dimer units. D-dimer results must be used in conjunction with a clinical pretest probability (PTP) assessment model for deep vein thrombosis (DVT) and pulmonary embolism (PE). Results <230 ng/mL d-dimer units can be used as a negative predictor in patients with low or moderate probability for DVT/PE. Results above the exclusion threshold of 230 ng/ml D-dimer units for DVT/PE may indicate the need for further diagnostic testing. D-Dimer can be increased in hospitalized patients due to co-morbid conditions. PERFORMED BY: [place] [address] PATHOLOGIST HEEL SEAT FILLER ABDIEL MTZ M.D. Performed By: #### C MP, CBC #### [facility] [address] [place] [address] [facility] Digoxinon 07-10-2022 Digoxin [Mass/Vol] 1.5 ng/mL Normal 0.9-2.0 [facility] Comment on above: Result Comment: Last dose: - PERFORMED BY: [place] [address] PATHOLOGIST HEEL SEAT FILLER ABDIEL MTZ M.D. Performed By: #### D IG, CUBLD ####[facility] [address] [place] [id number] [facility] Digoxin [Mass/volume] in Ser um or PlasmaOrdered By: Iris Holliday on 07-10-2022 Digoxin [Mass/Vol] 1.5 ng/mL 0.9-2.0 [facility] Comment on above: Last dose: - ECG 12 lead ECGon 07-10-2022 ECG 12 lead ECG [facility] Main [place] [address] [place] [address] Electrocardiograph Report Signed Patient: Jaime Lechuga MR#: [id number] : 1955 Acct:[id number] Age/Sex: 66 / M ADM Date: 07/10/22 Loc: Room: [address] [place] [address] Type: ADM IN Attending Dr: Iris Lassiter DO Ordering Provider: Iris Holliday MD Date of Service: 07/10/22 ECG/ECG 12 lead ECG: Arrhythmia/Palpitations Copies to: Test Reason : Blood Pressure : / mmHG Vent. Rate : 037 BPM Atrial Rate : 048 BPM P-R Int : 000 ms QRS Dur : 110 ms QT Int : 458 ms P-R-T Axes : 000 102 260 degrees QTc Int : 359 ms Junctional bradycardia Rightward axis Low voltage QRS Incomplete right bundle branch block Marked ST abnormality, possible inferior subendocardial injury Abnormal ECG When compared with ECG of 13-MAY-2023 19:18, (Unconfirmed) ST more depressed in Inferior leads Confirmed by IRIS HOLLIDAY MD ([id number]) on 07/11/2022 1:22:53 AM Referred By: Electronically Signed By:IRIS HOLLIDAY MD Transcribed By: MUS Signed By Iris Holliday MD 06/28 [facility] ECG 12 lead ECG [facility] [place] [address] Electrocardiograph Report Signed Patient: Jaime Lechuga MR#: [id number] : 1955 Acct:[id number] Age/Sex: 66 / M ADM Date: 07/10/22 Loc: Room: [address] [place] [address] Type: ADM IN Attending Dr: Iris Lassiter DO Ordering Provider: Iris Holliday MD Date of Service: 07/10/22 ECG/ECG 12 lead ECG: Arrhythmia/Palpitations Copies to: Test Reason : Blood Pressure : 098/046 mmHG Vent. Rate : 052 BPM Atrial Rate : 034 BPM P-R Int : 000 ms QRS Dur : 114 ms QT Int : 428 ms P-R-T Axes : 000 100 262 degrees QTc Int : 398 ms Junctional rhythm Right bundle branch block T wave abnormality, consider inferolateral ischemia Abnormal ECG No previous ECGs available Confirmed by IRIS HLOLIDAY MD ([id number]) on 07/11/2022 1:23:14 AM Referred By: Electronically Signed By:IRIS HOLLIDAY MD Transcribed By: MUS Signed By Iris Holliday MD 06/28 [facility] Eosinophils Auto (Bld) [#/Vo l]Ordered By: Iris Holliday on 07-10-2022 Eosinophils (Bld) [#/Vol] 0.0 10*3/uL 0.0-0.45 [facility] Eosinophils/100 WBC Auto (Bl d)Ordered By: Iris Holliday on 07-10-2022 Eosinophils/100 WBC (Bld) 0.0 % . [facility] Erythrocyte distribution wid th Auto (RBC) [Ratio]Ordered By: Iris Holliday on 07-10-2022 Erythrocyte distribution wid th (RBC) [Ratio] 18.0 % 12.0-14.8 [facility] Fecal occult blood detection by immunochemistryOrdered By: Iris Holliday on 07-10-2022 Hemoglobin.gastrointestinal Ql (Stl) [facility] Globulin Calc (S) [Mass/Vol] Ordered By: Iris Holliday on 07-10-2022 Globulin (S) [Mass/Vol] 3.2 g/dL F [facility] Glucose [Mass/volume] in Ser um or PlasmaOrdered By: Iris Holliday on 07-10-2022 Glucose [Mass/Vol] 110 mg/dL 70-100 [facility] Comment on above: ADA recommended refe rence rangeRandom Glucose Reference Range is dependent on time and content of last meal. Glucose of more than 200 mg/dL in a nonstressed, ambulatory subject supports the diagnosis of Diabetes Mellitus. Hematocrit Auto (Bld) [Volum e fraction]Ordered By: Iris Holliday on 07-10-2022 Hematocrit (Bld) [Volume fraction] 26.7 % 3 8.8-50.0 [facility] Hemoglobin [Mass/volume] in BloodOrdered By: Iris Holliday on 07-10-2022 Hemoglobin (Bld) [Mass/Vol] 7.9 g/dL 13.0-17. 0 [facility] Hypochromia LM Ql (Bld)Order ed By: Iris Holliday on 07-10-2022 Hypochromia Ql (Bld) Moderate [facility] Ketones Auto test strip (U) [Mass/Vol]Ordered By: Iris Holliday on 07-10-2022 Ketones (U) [Mass/Vol] Trace Negative [facility] and C hemistry - challengeOrdered By: Iris Holliday on 07-10-2022 CO2 [Moles/Vol] 27.1 mmol/L 23.0-27.0 [facility] HCO3 (Bld) [Moles/Vol] 25.7 mmol/L 23.0-29.0 [facility] - CoagulationOrde red By: Iris Holliday on 07-10-2022 PT Coag (PPP) [Time] 48.8 s 9.0-12.9 [facility] - UrinalysisOrder ed By: Iris Holliday on 07-10-2022 Hyaline casts LM Ql (Urine sed) 9-19 [LPF] 0-8 [facility] Lactate [Moles/volume] in Se rum or PlasmaOrdered By: Iris Lassiter on 07-10-2022 Lactate [Moles/Vol] 2.9 mmol/L 0.5-2.2 [facility] Comment on above: Critical Result : Ca lled to and read back by: HEBERT QUISPE at: 07/11/2022 00:43:09 by:[id number] Lactic Acidon 07-10-2022 Lactate [Moles/Vol] 6.1 mmol/L Off scale high 0.5-2.[address] [facility] Comment on above: Result Comment: Crit ical Result : Called to and read back by: QIANA MATTHEW at: 07/10/2022 19:57:52 by:LFM PERFORMED BY: [facility] [address] [place] [address] PATHOLOGIST HEEL SEAT FILLER ABDIEL MTZ M.D. Performed By: #### L ACTIC ####[facility] [place] [address] [facility] Leukocytes [#/volume] correc milton for nucleated erythrocytes in Blood by Automated counOrdered By: Iris Holliday on 07-10-2022 WBC corrected for nucl RBC A uto (Bld) [#/Vol] 12.6 10*3/uL 4.1-10.5 [facility] Lymphocytes Auto (Bld) [#/Vo l]Ordered By: Iris Holliday on 07-10-2022 Lymphocytes (Bld) [#/Vol] 0.9 10*3/uL 1.00-4.8 [facility] Lymphocytes/100 WBC Auto (Bl d)Ordered By: Iris Holliday on 07-10-2022 Lymphocytes/100 WBC (Bld) 7.3 % . [facility] MCH Auto (RBC) [Entitic mass ]Ordered By: Iris Holliday on 07-10-2022 MCH (RBC) [Entitic mass] 23.6 pg 27.5-35.2 [facility] MCHC Auto (RBC) [Mass/Vol]Or dered By: Iris Holliday on 05-13-2023 MCHC (RBC) [Mass/Vol] 29.5 g/dL 32.5-35.6 [facility] MCV Auto (RBC) [Entitic vol] Ordered By: Iris Holliday on 07-10-2022 MCV (RBC) [Entitic vol] 80.0 fL 83.5-[address] [facility] Magnesiumon 07-10-2022 Magnesium [Mass/Vol] 2.1 mg/dL Normal 1.9-2.7 [facility] Comment on above: Performed By: #### C MP, CBC #### [facility] [address] [place] [address] Magnesium [Mass/volume] in S aakash or PlasmaOrdered By: Iris Holliday on 07-10-2022 Magnesium [Mass/Vol] 2.1 mg/dL 1.9-2.7 [facility] Microcytes LM Ql (Bld)Ordere d By: Iris Holliday on 07-10-2022 Microcytes Ql (Bld) Slight [facility] Monocyte distribution width [Entitic volume] in Blood by AutomatedOrdered By: Iris Holliday on 07-10-2022 Monocyte distribution width Auto (Bld) [Entitic vol] 17.34 % 0.00-20.00 [facility] Monocytes Auto (Bld) [#/Vol] Ordered By: Iris Holliday on 07-10-2022 Monocytes (Bld) [#/Vol] 1.3 10*3/uL 0.0-0.8 [facility] Monocytes/100 WBC Auto (Bld) Ordered By: Iris Holliday on 07-10-2022 Monocytes/100 WBC (Bld) 10.0 % . [facility] Neutrophils Auto (Bld) [#/Vo l]Ordered By: Iris Holliday on 07-10-2022 Neutrophils (Bld) [#/Vol] 10.5 10*3/uL 1.8-7.7 [facility] Neutrophils/100 WBC Auto (Bl d)Ordered By: Iris Holliday on 07-10-2022 Neutrophils/100 WBC (Bld) 82.1 % . [facility] Nitrite Test strip Ql (U)Ord ered By: Iris Holliday on 07-10-2022 Nitrite Ql (U) Negative Negative [facility] No Panel InformationOrdered By: Iris Holliday on 07-10-2022 Arterial Blood Base Excess -0.2 mmol/L -3.0-3.0 [facility] Arterial Blood Oxygen Content 4.4 mmol/L 6.6-9. 7 [facility] Arterial Blood Oxygen Saturation 82.7 % 95.0-100.0 [facility] Arterial Blood Partial Press ure CO2 48.0 mm[Hg] 35.0-45.0 [facility] Arterial Blood Partial Press ure O2 54.7 mm[Hg] 80.0-100.0 [facility] Arterial Blood pH 7.35 7.35-7.45 [facility] Blood Gas Critical Value See comment [facility] Comment on above: Critical Value stewart d on: 07/10/2022 at 20:40 Blood Gas Liter Flow 2 L/min [facility] Blood Gas Sample Site Left radial Fi [facility] FiO2 28 % [facility] Oxygen Delivery Device Nasal cannula [facility] D-Dimer Quantitative (PE/DVT) 1944 ng/mL 0-243 [facility] Comment on above: The reference range for D-dimer is <243 ng/mL D-dimer units.D- dimer results must be used in conjunction with a clinicalpretest probability (PTP) assessment model for deep veinthrombosis (DVT) and pulmonary embolism (PE). Results <230ng/mL d-dimer units can be used as a negative predictor inpatients with low or moderate probability for DVT/PE.Results above the exclusion threshold of 230 ng/ml D- dimerunits for DVT/PE may indicate the need for furtherdiagnostic testing.D-Dimer can be increased in hospitalized patients due toco-morbid conditions. Estimated GFR (CKD-EPI) 32.762 mL/Min [facility] Creatinine Clearanc e (Chem 31.35 [facility] Nucleated erythrocytes [Pres ence] in Blood by Automated countOrdered By: Iris Holliday on 07-10-2022 Nucleated RBC Auto Ql (Bld) 1.7 /100{WBC} 0-0.5 [facility] Partial Thromboplastin Timeo n 07-10-2022 aPTT Coag (Bld) [Time] 28.7 s Normal 25.1-36.5 [facility] Comment on above: Result Comment: PERF ORMED BY: [place] [address] PATHOLOGIST HEEL SEAT FILLER ABDIEL MTZ M.D. Performed By: #### C MP, CBC #### [facility] [address] Platelet adequacy [Presence] in Blood by Light microscopyOrdered By: Iris Holliday on 07-10-2022 Platelets LM Ql (Bld) Normal Normal [facility] Platelet mean volume Auto (B ld) [Entitic vol]Ordered By: Iris Holliday on 07-10-2022 Platelet mean volume (Bld) [Entitic vol] 9.9 fL 6.6-10.1 [facility] Platelet morphology finding [Identifier] in BloodOrdered By: Iris Holliday on 07-10-2022 Platelet morphology finding Nom (Bld) N/A [facility] Platelet poor plasma interna tional normalized ratio (INR) by coagulation assay (relatOrdered By: Iris Holliday on 07-10-2022 INR Coag (PPP) [Relative time] 4.3 {INR} [facility] Comment on above: INR Therapeutic Rang e A) Pre- and Peroperative OAT started two weeks before surgery. NOT HIP SURGERY: 1.5 - 2.5 HIP SURGERY: 2 - 3B) Primary and secondary prevention of venous THROMBOSIS: 2 - 3C) Active venous thrombosis, pulmonary embolismand prevention of recurrent venous thrombosis: 2 - 3D) Prevention of arterial thromboembolismincluding patients with mechanical heart valves: 3 - 4.5 Platelets Auto (Bld) [#/Vol] Ordered By: Iris Holliday on 07-10-2022 Platelets (Bld) [#/Vol] 180 10*3/uL 150-450 [facility] Platelets Large [Presence] i n Blood by Light microscopyOrdered By: Iris Holliday on 07-10-2022 Platelets Large LM Ql (Bld) Slight [facility] Polychromasia [Presence] in Blood by Light microscopyOrdered By: Iris Holliday on 07-10-2022 Polychromasia LM Ql (Bld) Moderate [facility] Potassium [Moles/volume] in Serum or PlasmaOrdered By: Iris Holliday on 07-10-2022 Potassium [Moles/Vol] 5.5 mmol/L 3.5-5.1 [facility] Protein Auto test strip (U) [Mass/Vol]Ordered By: Iris Holliday on 07-10-2022 Protein (U) [Mass/Vol] 100 mg/dL Negative [facility] Protein [Mass/volume] in Ser um or PlasmaOrdered By: Iris Holliday on 07-10-2022 Protein [Mass/Vol] 6.5 g/dL 6.4-8.9 [facility] Prothrombin Time INRon 07-10 INR Coag (PPP) [Relative time] 4.3 {INR} Normal [facility] Comment on above: Result Comment: INR Therapeutic Range A) Pre- and Peroperative OAT started two weeks before surgery. NOT HIP SURGERY: 1.5 - 2.5 HIP SURGERY: 2 - 3 B) Primary and secondary prevention of venous THROMBOSIS: 2 - 3 C) Active venous thrombosis, pulmonary embolism and prevention of recurrent venous thrombosis: 2 - 3 D) Prevention of arterial thromboembolism including patients with mechanical heart valves: 3 - 4.5 Performed By: #### C MP, CBC #### [facility] [address] PT Coag (PPP) [Time] 48.8 s High 9.0-12.9 [facility] Comment on above: Performed By: #### C MP, CBC #### [facility] [address] RBC Auto (Bld) [#/Vol]Ordere d By: Iris Holliday on 07-10-2022 RBC (Bld) [#/Vol] 3.33 10*6/uL 3.90-5.60 [facility] RBC morphologyOrdered By: Cindy Holliday on 07-10-2022 RBC morphology finding Nom (Bld) N/A [facility] Scan and CBCon 07-10-2022 Anisocytosis Ql (Bld) Slight Normal [facility] Comment on above: Performed By: #### P TT, PT #### [facility] [address] [place] [address] [place] Basophils (Bld) [#/Vol] 0.1 10*3/uL Normal 0.0-0.2 [facility] Comment on above: Performed By: #### P TT, PT #### [address] Basophils/100 WBC (Bld) 0.6 % Normal . [facility] Comment on above: Performed By: #### P TT, PT #### [address] Eosinophils (Bld) [#/Vol] 0.0 10*3/uL Normal 0.0-0.45 [facility] Comment on above: Performed By: #### P TT, PT #### [address] Eosinophils/100 WBC (Bld) 0.0 % Normal . [facility] Comment on above: Performed By: #### P TT, PT #### [address] Erythrocyte distribution wid th (RBC) [Ratio] 18.0 % High 12.0-14.8 [facility] Comment on above: Performed By: #### P TT, PT #### [address] Hematocrit (Bld) [Volume fraction] 26.7 % Low 38.8-50.0 [facility] Comment on above: Performed By: #### P TT, PT #### [address] Hemoglobin (Bld) [Mass/Vol] 7.9 g/dL Low 13.0-17. 0 [facility] Comment on above: Performed By: #### P TT, PT #### [address] Hypochromasia Moderate Normal [facility] Comment on above: Performed By: #### P TT, PT #### [address] Large Platelets Slight Normal [facility] Comment on above: Result Comment: PERF ORMED BY: [place] [address] PATHOLOGIST HEEL SEAT FILLER ABDIEL MTZ M.D. Performed By: #### P TT, PT #### [address] Lymphocytes (Bld) [#/Vol] 0.9 10*3/uL Low 1.00-4.8 [facility] Comment on above: Performed By: #### P TT, PT #### [address] Lymphocytes/100 WBC (Bld) 7.3 % Normal . [facility] Comment on above: Performed By: #### P TT, PT #### [address] MCH (RBC) [Entitic mass] 23.6 pg Low 27.5-35.2 [facility] Comment on above: Performed By: #### P TT, PT #### [address] MCV (RBC) [Entitic vol] 80.0 fL Low 83.5-[address] [facility] Comment on above: Performed By: #### P TT, PT #### [address] Mean Corpuscular HGB Conc 29.5 g/dL Low 32.5-35.6 [facility] Comment on above: Performed By: #### P TT, PT #### [address] Microcytosis Slight Normal [facility] Comment on above: Performed By: #### P TT, PT #### [place] [address] [place] Monocytes (Bld) [#/Vol] 1.3 10*3/uL High 0.0-0.8 [facility] Comment on above: Performed By: #### P TT, PT #### [place] [address] [place] Monocytes/100 WBC (Bld) 17.34 % Normal 0.00-20.[address] [facility] Comment on above: Performed By: #### P TT, PT #### [facility] [address] [place] [address] [place] Monocytes/100 WBC (Bld) 10.0 % Normal . [facility] Comment on above: Performed By: #### P TT, PT #### [facility] [address] [place] [address] [place] Neutrophils (Bld) [#/Vol] 10.5 10*3/uL High 1.8-7.7 [facility] Comment on above: Performed By: #### P TT, PT #### [facility] [address] Neutrophils/100 WBC (Bld) 82.1 % Normal . [facility] Comment on above: Performed By: #### P TT, PT #### [facility] [address] [place] [address] [place] NRBC% 1.7 /100{WBC} High 0-0.5 [facility] Comment on above: Performed By: #### P TT, PT #### [address] Platelet Estimate Normal Normal Normal [facility] Comment on above: Performed By: #### P TT, PT #### [facility] [address] Platelet mean volume (Bld) [Entitic vol] 9.9 fL Normal 6.6-10.1 [facility] Comment on above: Performed By: #### P TT, PT #### [facility] [address] [place] [address] [place] Platelets (Bld) [#/Vol] 180 10*3/uL Normal 150-450 [facility] Comment on above: Performed By: #### P TT, PT #### [place] [address] [place] Polychromasia Moderate Normal [facility] Comment on above: Performed By: #### P TT, PT #### [facility] [address] RBC (Bld) [#/Vol] 3.33 10*6/uL Low 3.90-5.60 [facility] Comment on above: Performed By: #### P TT, PT #### [facility] [address] WBC (Bld) [#/Vol] 12.6 10*3/uL High 4.1-10.5 [facility] Comment on above: Performed By: #### P TT, PT #### [facility] [address] Serum or plasma albumin/glob ulin mass ratioOrdered By: Iris Holliday on 07-10-2022 Albumin/Globulin [Mass ratio] 1.0 {ratio} [facility] Serum or plasma anion gap de terminationOrdered By: Iris Holliday on 07-10-2022 Anion gap [Moles/Vol] 17.9 mmol/L 6.0-15.0 [facility] Sodium [Moles/volume] in Ser um or PlasmaOrdered By: Iris Holliday on 07-10-2022 Sodium [Moles/Vol] 132 mmol/L 136-145 [facility] Specific gravity Auto test s trip (U) [Rel density]Ordered By: Iris Holliday on 07-10-2022 Specific gravity (U) [Rel density] 1.020 1.001-1.030 [facility] Squamous epithelial cells de tection in urine sediment by light microscopyOrdered By: Iris Holliday on 07-10-2022 Epithelial cells.squamous LM Ql (Urine sed) 3-4 [HPF] 0-2 [facility] Stool Occult Blood (Guaiac)o n 07-10-2022 Stool Occult Blood (Guaiac) Occult Blood Negative for Occult Blood by Guaiac Methodology Reference range = Negative PERFORMED BY: [place] [id number] PATHOLOGIST HEEL SEAT FILLER ABDIEL MTZ M.D. Normal [facility] Comment on above: Performed By: #### O B(GUAIAC) ####[facility] [id number] Thyroid Stimulating Hormoneo n 07-10-2022 TSH Qn 2.96 m[IU]/L Normal 0.45-5.33 [facility] Comment on above: Result Comment: PERF ORMED BY: [place] [address] PATHOLOGIST HEEL SEAT FILLER ABDIEL MTZ M.D. Performed By: #### P TT, PT #### [facility] [address] [place] [address] Thyrotropin [Units/volume] i n Serum or PlasmaOrdered By: Iris Holliday on 07-10-2022 TSH Qn 2.96 m[IU]/L 0.45-5.33 [facility] Troponin I High Sensitivityo n 07-10-2022 Troponin I High Sensitivity 48.3 pg/mL High 0.0-20.0 [facility] Comment on above: Result Comment: PERF ORMED BY: [place] [address] PATHOLOGIST HEEL SEAT FILLER ABDIEL MTZ M.D. Performed By: #### C MP, CBC #### [facility] [address] Troponin I.cardiac [Mass/vol ume] in Serum or Plasma by Detection limit <= 0.01 ng/Ordered By: Iris Holliday on 07-10-2022 Troponin I.cardiac DL <= 0.0 1 ng/mL [Mass/Vol] 48.3 pg/mL 0.0-20.0 [facility] Urea nitrogen [Mass/volume] in Serum or PlasmaOrdered By: Iris Holliday on 07-10-2022 Urea nitrogen [Mass/Vol] 59 mg/dL 7-25 [facility] Urine bacteria detection by automated methodOrdered By: Iris Holliday on 07-10-2022 Bacteria Auto Ql (U) None seen None Seen [facility] Urine clarity by refractomet ry automatedOrdered By: Iris Holliday on 07-10-2022 Clarity Refractometry automated (U) Cloudy Clear [facility] Urine glucose measurement by automated test strip (mass/volume)Ordered By: Iris Holliday on 07-10-2022 Glucose Auto test strip (U) [Mass/Vol] Normal mg/dL Normal [facility] Urine hemoglobin detection b y automated test stripOrdered By: Iris Holliday on 07-10-2022 Hemoglobin Auto test strip Ql (U) Negative Ne gative [facility] Urine leukocyte esterase det ection by automated test stripOrdered By: Iris Holliday on 07-10-2022 Leukocyte esterase Auto test strip Ql (U) 1+ Negative [facility] Urine sediment renal epithel ial cell count by microscopy (number/high power field)Ordered By: Iris Holliday on 07-10-2022 Epithelial cells.renal LM.HP F (Urine sed) [#/Area] 3-4 [HPF] 0-1 [facility] Urobilinogen Auto test strip (U) [Mass/Vol]Ordered By: Iris Holliday on 07-10-2022 Urobilinogen (U) [Mass/Vol] Normal mg/dL Normal [facility] WBC Auto (Bld) [#/Vol]Ordere d By: Iris Holliday on 07-10-2022 WBC (Bld) [#/Vol] 12.6 10*3/uL 4.1-10.5 [facility] pH Auto test strip (U)Ordere d By: Iris Holliday on 07-10-2022 pH (U) 5.0 [pH] 5.0-9.0 [facility] Follow-Upon 12-09-2021 Follow-Up [id number] Jaime Lechuga 1955 M Date Provider Department Center 12/09/2021 QIANA THORNTON Family History Problem Relation Age of Onset Diabetes Brother Family Status - Relation Status Age at Brother Level of Service:26423 [place] OFFICE/OUTPATIENT ESTABLISHED LOW MDM 20-29 MIN Reason for Visit and Comments: Congestive Heart Failure [127] Atrial Fibrillation [80] Peripheral Vascular Disease [458] Normal [facility] DIGOXINon 11-16-2021 DIG 0.5 ng/mL Critically low 0.9-2.0 [facility] Comment on above: Performed By: #### M G #### [facility] [address] [place] [address] [address] Carole Carvalho PROF CHEM 8 (BAS METB)on Anion gap [Moles/Vol] 8.7 mmol/L Normal [facility] Comment on above: Performed By: #### B CONTACT CLERK #### [facility] [address] [address] [address] Carole Carvalho Calcium [Mass/Vol] 9.0 mg/dL Normal 8.5-10.1 [facility] Comment on above: Performed By: #### B CONTACT CLERK #### [facility] [address] [place] [address] Dr. Carole Carvalho Chloride [Moles/Vol] 103 mmol/L Normal 98-107 [facility] Comment on above: Performed By: #### B CONTACT CLERK #### [facility] [address] [address] [address] Carole Carvalho CO2 [Moles/Vol] 33.2 mmol/L Critically high 21.0-32.0 [facility] Comment on above: Performed By: #### B CONTACT CLERK #### [facility] [address] [place] [address] Dr. Carole Carvalho Creatinine [Mass/Vol] 0.90 mg/dL Normal 0.70-1.[address] [facility] Comment on above: Performed By: #### B CONTACT CLERK #### [facility] [address] [place] [address] Dr. Carole Carvalho EGFR-AF BERMUDIAN >60 Normal >=60 [facility] Comment on above: Performed By: #### B CONTACT CLERK #### [facility] [address] [address] [address] Carole Carvalho EGFR-NON AF BERMUDIAN >60 Normal >=60 [facility] Comment on above: Performed By: #### B CONTACT CLERK #### [facility] [address] [place] [address] Dr. Carole Carvalho Glucose [Mass/Vol] 98 mg/dL Normal 74-106 [facility] Comment on above: Performed By: #### B CONTACT CLERK #### [facility] [address] [address] [address] Carole Carvalho Potassium [Moles/Vol] 3.9 mmol/L Normal 3.5-5.1 [facility] Comment on above: Performed By: #### B CONTACT CLERK #### [facility] [address] [address] [address] Carole Carvalho Sodium [Moles/Vol] 141 mmol/L Normal 136-145 [facility] Comment on above: Performed By: #### B CONTACT CLERK #### [facility] [address] [address] [address] Carole Carvalho Urea nitrogen [Mass/Vol] 12.0 mg/dL Normal 7.0-18.0 [facility] Comment on above: Performed By: #### B CONTACT CLERK #### [facility] [address] [address] [address] Carole Carvalho Urea nitrogen/Creatinine [Mass ratio] 13.3 mg/mg Normal [facility] Comment on above: Performed By: #### B CONTACT CLERK #### [facility] [address] [place] [address] CHEST WO CONon 11-05-2021 CT CHEST WO CON EXAMINATION: CT CHES T WO CON HISTORY: Solitary nodule of lung follow-up COMPARISON: CTA chest 07/23/2021 TECHNIQUE: Axial, Coronal, and Sagittal images were created without the administration of IV contrast material. Dose reduction techniques were achieved by using automated exposure control and/or adjustment of mA and/or kV according to patient size and/or use of iterative reconstruction technique. FINDINGS: LUNGS: Stable 11 mm round circumscribed nodule within right lower lobe superior segment. Stable calcified granulomas within left lower lobe superior segment. Moderate emphysematous changes bilaterally. PLEURA: No mass, effusion, or pneumothorax. VASCULATURE: No abnormality. JUSTINE: Calcified lymph nodes. MEDIASTINUM: Stable, slightly prominent precarinal lymph node. CARDIAC: No enlargement or pericardial thickening. AORTA: No aneurysm or dissection. CHEST WALL: No mass or axillary adenopathy. BONES: No bone lesion or fracture. LIMITED ABDOMEN: No suspicious findings. Limited images of the upper abdomen. OTHER: Negative. IMPRESSION: 1. Stable chronic granulomatous disease and emphysematous changes. 2. Stable 11 mm nodule within the right lower lobe superior segment. Follow-up imaging in one year is recommended to document stability. Electronically authenticated by: KATE BUSH Date: 2021-11-05 10:[address] [facility] CBC AUTO DIFFon 07-27-2021 BASO # 0.0 103/ul Normal 0.0-0.1 [facility] Comment on above: Performed By: #### M G, BMP #### [facility] [address] [place] [address] Dr. Carole Carvalho Basophils/100 WBC (Bld) 0.3 % Normal 0.2-2.0 [facility] Comment on above: Performed By: #### M G, BMP #### [facility] [address] [place] [address] Dr. Carole Carvalho EO # 0.0 103/ul Normal 0.0-0.7 [facility] Comment on above: Performed By: #### M G, BMP #### [facility] [address] [place] [address] Dr. Carole Carvalho Eosinophils/100 WBC (Bld) 0.0 % Critically low 0.9-7. 0 [facility] Comment on above: Performed By: #### M G, BMP #### [facility] [address] [place] [address] Dr. Carole Carvalho Erythrocyte distribution wid th (RBC) [Ratio] 15.3 % Critically high 11.0-15.0 [facility] pital Comment on above: Performed By: #### M G, BMP #### [facility] [address] [place] [address] Dr. Carole Carvalho Hematocrit (Bld) [Volume fraction] 32.1 % Critically low 42.0-54.0 [facility] pital Comment on above: Performed By: #### M G, BMP #### [facility] [address] [place] [address] Dr. Carole Carvalho Hemoglobin (Bld) [Mass/Vol] 9.8 g/dL Critically low 14.0 -18.[address] [facility] Comment on above: Performed By: #### M G, BMP #### [facility] [address] [address] [address] Carole Carvalho IG # 0.12 10e3/ul Critically high 0.00-0.03 [facility] Comment on above: Performed By: #### M G, BMP #### [facility] [address] [address] [address] Carole Carvalho IG % 1.1 % Critically high 0.0-0.5 [facility] Comment on above: Performed By: #### M G, BMP #### [facility] [address] [place] [address] Dr. Carole Carvalho LYMPH # 2.0 103/ul Normal 1.2-3.8 [facility] Comment on above: Performed By: #### M G, BMP #### [facility] [address] [place] [address] Dr. Carole Carvalho Lymphocytes/100 WBC (Bld) 18.6 % Critically low 20.5-6 0.0 [facility] Comment on above: Performed By: #### M G, BMP #### [facility] [address] [place] [address] Dr. Carole Carvalho MANUAL DIFF REQ NO Normal [facility] Comment on above: Performed By: #### M G, BMP #### [facility] [address] [address] [address] Carole Carvalho MCH (RBC) [Entitic mass] 29.7 pg Normal 25.9-34.[address] [facility] Comment on above: Performed By: #### M G, BMP #### [facility] [address] [place] [address] Dr. Carole Carvalho MCHC (RBC) [Mass/Vol] 30.5 g/dL Normal 29.9-35.[address] [facility] Comment on above: Performed By: #### M G, BMP #### [facility] [address] [place] [address] Dr. Carole Carvalho MCV (RBC) [Entitic vol] 97.3 fL Critically high 80.0-[address] [facility] Comment on above: Performed By: #### M G, BMP #### [facility] [address] [place] [address] Dr. Carole Carvalho MONO # 1.2 103/ul Critically high 0.3-0.8 [facility] Comment on above: Performed By: #### M G, BMP #### [facility] [address] [place] [address] Dr. Carole Carvalho Monocytes/100 WBC (Bld) 10.9 % Normal 1.7-12.0 [facility] Comment on above: Performed By: #### M G, BMP #### [facility] [address] [place] [address] Dr. Carole Carvalho NEUT # 7.3 103/ul Critically high 1.4-6.5 [facility] Comment on above: Performed By: #### M G, BMP #### [facility] [address] [place] [address] Dr. Carole Carvalho Neutrophils/100 WBC (Bld) 69.1 % Normal 43.0-75.0 [facility] Comment on above: Performed By: #### M G, BMP #### [facility] [address] [place] [address] Dr. Carole Carvalho Platelet mean volume (Bld) [ Entitic vol] 10.7 fL Normal 9.5-13.5 [facility] pital Comment on above: Performed By: #### M G, BMP #### [facility] [address] [place] [address] Dr. Carole Carvalho PLT 282 103/ul Normal 150-450 [facility] Comment on above: Performed By: #### M G, BMP #### [facility] [address] [place] [address] Dr. Carole Carvalho RBC 3.30 106/ul Critically low 4.70-6.10 [facility] Comment on above: Performed By: #### M G, BMP #### [facility] [address] [place] [address] Dr. Carole Carvalho WBC 10.5 103/ul Normal 4.0-11.0 [facility] Comment on above: Performed By: #### M G, BMP #### [facility] [address] [place] [address] Dr. Carole Carvalho DIGOXINon 07-27-2021 DIG 0.4 ng/mL Critically low 0.9-2.0 [facility] Comment on above: Performed By: #### D IG #### [facility] [address] [place] [address] Dr. Carole Carvalho MAGNESIUMon 07-27-2021 Magnesium [Mass/Vol] 2.0 mg/dL Normal 1.8-2.4 [facility] Comment on above: Performed By: #### M G #### [facility] [address] [place] [address] Dr. Carole Carvalho PROF CHEM 8 (BAS METB)on Anion gap [Moles/Vol] 10.0 mmol/L Normal [facility] Comment on above: Performed By: #### M G #### [facility] [address] [place] [address] Dr. Carole Carvalho Calcium [Mass/Vol] 7.8 mg/dL Critically low 8.5-10.1 [facility] Comment on above: Performed By: #### M G #### [facility] [address] [place] [address] Dr. Carole Carvalho Chloride [Moles/Vol] 101 mmol/L Normal 98-107 [facility] Comment on above: Performed By: #### M G #### [facility] [address] [place] [address] Dr. Carole Carvalho CO2 [Moles/Vol] 30.7 mmol/L Normal 21.0-32.0 [facility] Comment on above: Performed By: #### M G #### [facility] [address] [place] [address] Dr. Carole Carvalho Creatinine [Mass/Vol] 0.98 mg/dL Normal 0.70-1.30 [facility] Comment on above: Performed By: #### M G #### [facility] [address] [address] [address] Carole Carvalho EGFR-AF BERMUDIAN >60 Normal >=60 [facility] Comment on above: Performed By: #### M G #### [facility] [address] [address] [address] Carole Carvalho EGFR-NON AF BERMUDIAN >60 Normal >=60 [facility] Comment on above: Performed By: #### M G #### [facility] [address] [address] [address] Carole Carvalho Glucose [Mass/Vol] 96 mg/dL Normal 74-106 [facility] Comment on above: Performed By: #### M G #### [facility] [address] [place] [address] Dr. Carole Carvalho Potassium [Moles/Vol] 3.7 mmol/L Normal 3.5-5.1 [facility] Comment on above: Performed By: #### M G #### [facility] [address] [place] [address] Dr. Carole Carvalho Sodium [Moles/Vol] 138 mmol/L Normal 136-145 [facility] Comment on above: Performed By: #### M G #### [facility] [address] [place] [address] Dr. Carole Carvalho Urea nitrogen [Mass/Vol] 16.0 mg/dL Normal 7.0-18.0 [facility] Comment on above: Performed By: #### M G #### [facility] [address] [place] [address] Dr. Carole Carvalho Urea nitrogen/Creatinine [Mass ratio] 16.3 mg/mg Normal [facility] Comment on above: Performed By: #### M G #### [facility] [address] [place] [address] Dr. Carole Carvalho CBC AUTO DIFFon 07-26-2021 BASO # 0.0 103/ul Normal 0.0-0.1 [facility] Comment on above: Performed By: #### M G, BMP #### [facility] [address] [place] [address] Dr. Carole Carvalho Basophils/100 WBC (Bld) 0.4 % Normal 0.2-2.0 [facility] Comment on above: Performed By: #### M G, BMP #### [facility] [address] [place] [address] Dr. Carole Carvalho EO # 0.0 103/ul Normal 0.0-0.7 [facility] Comment on above: Performed By: #### M G, BMP #### [facility] [address] [place] [address] Dr. Carole Carvalho Eosinophils/100 WBC (Bld) 0.1 % Critically low 0.9-7. 0 [facility] Comment on above: Performed By: #### M G, BMP #### [facility] [address] [place] [address] Dr. Carole Carvalho Erythrocyte distribution wid th (RBC) [Ratio] 15.1 % Critically high 11.0-15.0 [facility] Comment on above: Performed By: #### M G, BMP #### [facility] [address] [place] [address] Dr. Carole Carvalho Hematocrit (Bld) [Volume fraction] 33.5 % Critically low 42.0-54.0 [facility] Comment on above: Performed By: #### M G, BMP #### [facility] [address] [place] [address] Dr. Carole Carvalho Hemoglobin (Bld) [Mass/Vol] 10.3 g/dL Critically low 14.0 -18.[address] [facility] Comment on above: Performed By: #### M G, BMP #### [facility] [address] [place] [address] Dr. Carole Carvalho IG # 0.06 10e3/ul Critically high 0.00-0.03 [facility] Comment on above: Performed By: #### M G, BMP #### [facility] [address] [place] [address] Dr. Carole Carvalho IG % 0.5 % Normal 0.0-0.5 [facility] ostal Comment on above: Performed By: #### M G, BMP #### [facility] [address] [place] [address] Dr. Carole Carvalho LYMPH # 2.2 103/ul Normal 1.2-3.8 [facility] Comment on above: Performed By: #### M G, BMP #### [facility] [address] [place] [address] Dr. Carole Carvalho Lymphocytes/100 WBC (Bld) 20.1 % Critically low 20.5-6 0.0 [facility] Comment on above: Performed By: #### M G, BMP #### [facility] [address] [place] [address] Dr. Carole Carvalho MANUAL DIFF REQ NO Normal [facility] Comment on above: Performed By: #### M G, BMP #### [facility] [address] [place] [address] Dr. Carole Carvalho MCH (RBC) [Entitic mass] 29.9 pg Normal 25.9-34.0 [facility] Comment on above: Performed By: #### M G, BMP #### [facility] [address] [place] [address] Dr. Carole Carvalho MCHC (RBC) [Mass/Vol] 30.7 g/dL Normal 29.9-35.[address] [facility] Comment on above: Performed By: #### M G, BMP #### [facility] [address] [place] [address] Dr. Carole Carvalho MCV (RBC) [Entitic vol] 97.4 fL Critically high 80.0-[address] [facility] Comment on above: Performed By: #### M G, BMP #### [facility] [address] [place] [address] Dr. Carole Carvalho MONO # 1.1 103/ul Critically high 0.3-0.8 [facility] Comment on above: Performed By: #### M G, BMP #### [facility] [address] [address] [address] Carole Carvalho Monocytes/100 WBC (Bld) 10.0 % Normal 1.7-12.0 [facility] Comment on above: Performed By: #### M G, BMP #### [facility] [address] [place] [address] Dr. Carole Carvalho NEUT # 7.6 103/ul Critically high 1.4-6.5 [facility] Comment on above: Performed By: #### M G, BMP #### [facility] [address] [place] [address] Dr. Carole Carvalho Neutrophils/100 WBC (Bld) 68.9 % Normal 43.0-75.[address] [facility] Comment on above: Performed By: #### M G, BMP #### [facility] [address] [place] [address] Dr. Carole Carvalho Platelet mean volume (Bld) [ Entitic vol] 11.2 fL Normal 9.5-13.5 [facility] Comment on above: Performed By: #### M G, BMP #### [facility] [address] [place] [address] Dr. Carole Carvalho PLT 212 103/ul Normal 150-450 [facility] Comment on above: Performed By: #### M G, BMP #### [facility] [address] [place] [address] Dr. Carole Carvalho RBC 3.44 106/ul Critically low 4.70-6.10 [facility] Comment on above: Performed By: #### M G, BMP #### [facility] [address] [place] [address] Dr. Carole Carvalho WBC 11.1 103/ul Critically high 4.0-11.0 [facility] Comment on above: Performed By: #### M G, BMP #### [facility] [address] [place] [address] Dr. Carole Carvalho MAGNESIUMon 07-26-2021 Magnesium [Mass/Vol] 2.1 mg/dL Normal 1.8-2.[address] [facility] Comment on above: Performed By: #### M G, BMP #### [facility] [address] [place] [address] Dr. Carole Carvalho PROF CHEM 8 (BAS METB)on Anion gap [Moles/Vol] 7.5 mmol/L Normal [facility] Comment on above: Performed By: #### M G, BMP #### [facility] [address] [place] [address] Dr. Carole Carvalho Calcium [Mass/Vol] 8.7 mg/dL Normal 8.5-10.1 [facility] Comment on above: Performed By: #### M G, BMP #### [facility] [address] [place] [address] Dr. Carole Carvalho Chloride [Moles/Vol] 99 mmol/L Normal 98-107 [facility] Comment on above: Performed By: #### M G, BMP #### [facility] [address] [place] [address] Dr. Carole Carvalho CO2 [Moles/Vol] 33.2 mmol/L Critically high 21.0-32.0 [facility] Comment on above: Performed By: #### M G, BMP #### [facility] [address] [place] [address] Dr. Carole Carvalho Creatinine [Mass/Vol] 0.91 mg/dL Normal 0.70-1.30 [facility] Comment on above: Performed By: #### M G, BMP #### [facility] [address] [place] [address] Dr. Carole Carvalho EGFR-AF BERMUDIAN >60 Normal >=60 [facility] Comment on above: Performed By: #### M G, BMP #### [facility] [address] [place] [address] Dr. Carole Carvalho EGFR-NON AF BERMUDIAN >60 Normal >=60 [facility] Comment on above: Performed By: #### M G, BMP #### [facility] [address] [place] [address] Dr. Carole Carvalho Glucose [Mass/Vol] 105 mg/dL Normal 74-106 [facility] Comment on above: Performed By: #### M G, BMP #### [facility] [address] [place] [address] Dr. Carole Carvalho Potassium [Moles/Vol] 3.7 mmol/L Normal 3.5-5.1 [facility] Comment on above: Performed By: #### M G, BMP #### [facility] [address] [place] [address] Dr. Carole Carvalho Sodium [Moles/Vol] 136 mmol/L Normal 136-145 [facility] Comment on above: Performed By: #### M G, BMP #### [facility] [address] [place] [address] Dr. Carole Carvalho Urea nitrogen [Mass/Vol] 21.0 mg/dL Critically high 7.0-18 .0 [facility] Comment on above: Performed By: #### M G, BMP #### [facility] [address] [place] [address] Dr. Carole Carvalho Urea nitrogen/Creatinine [Mass ratio] 23.1 mg/mg Normal [facility] Comment on above: Performed By: #### M G, BMP #### [facility] [address] [place] [address] Dr. Carole Carvalho CBC AUTO DIFFon 07-25-2021 BASO # 0.0 103/ul Normal 0.0-0.1 [facility] Comment on above: Performed By: #### M G, BMP #### [facility] [address] [place] [address] Dr. Carole Carvalho Basophils/100 WBC (Bld) 0.3 % Normal 0.2-2.0 [facility] Comment on above: Performed By: #### M G, BMP #### [facility] [address] [place] [address] Dr. Carole Carvalho EO # 0.0 103/ul Normal 0.0-0.7 [facility] Comment on above: Performed By: #### M G, BMP #### [facility] [address] [place] [address] Dr. Carole Carvalho Eosinophils/100 WBC (Bld) 0.0 % Critically low 0.9-7. [address] [facility] Comment on above: Performed By: #### Holly Gómez, BMP #### [facility] [address] [place] [address] Dr. Carole Carvalho Erythrocyte distribution wid th (RBC) [Ratio] 14.8 % Normal 11.0-15.0 [facility] Comment on above: Performed By: #### Holly G, BMP #### [facility] [address] [place] [address] Dr. Carole Carvalho Hematocrit (Bld) [Volume fraction] 33.3 % Critically low 42.0-54.0 [facility] Comment on above: Performed By: #### Holly Gómez, BMP #### [facility] [address] [place] [address] Dr. Carole Carvalho Hemoglobin (Bld) [Mass/Vol] 10.2 g/dL Critically low 14.0 -18.[address] [facility] Comment on above: Performed By: #### Holly Gómez, BMP #### [facility] [address] [place] [address] Dr. Carole Carvalho IG # 0.05 10e3/ul Critically high 0.00-0.03 [facility] Comment on above: Performed By: #### Holly Gómez, BMP #### [facility] [address] [place] [address] Dr. Carole Carvalho IG % 0.5 % Normal 0.0-0.5 [facility] Comment on above: Performed By: #### Holly Gómez, BMP #### [facility] [address] [place] [address] Dr. Carole Carvalho LYMPH # 1.7 103/ul Normal 1.2-3.8 [facility] Comment on above: Performed By: #### Holly G, BMP #### [facility] [address] [place] [address] Dr. Carole Carvalho Lymphocytes/100 WBC (Bld) 17.0 % Critically low 20.5-[address] [facility] Comment on above: Performed By: #### Holly Gómez, BMP #### [facility] [address] [place] [address] Dr. Carole Carvalho MANUAL DIFF REQ NO Normal [facility] Comment on above: Performed By: #### M G, BMP #### [facility] [address] [place] [address] Dr. Carole Carvalho MCH (RBC) [Entitic mass] 30.1 pg Normal 25.9-34.0 [facility] Comment on above: Performed By: #### M G, BMP #### [facility] [address] [place] [address] Dr. Carole Carvalho MCHC (RBC) [Mass/Vol] 30.6 g/dL Normal 29.9-35.2 [facility] Comment on above: Performed By: #### M G, BMP #### [facility] [address] [place] [address] Dr. Carole Carvalho MCV (RBC) [Entitic vol] 98.2 fL Critically high 80.0-94 .0 [facility] Comment on above: Performed By: #### M G, BMP #### [facility] [address] [place] [address] Dr. Carole Carvalho MONO # 1.2 103/ul Critically high 0.3-0.8 [facility] Comment on above: Performed By: #### M G, BMP #### [facility] [address] [place] [address] Dr. Carole Carvalho Monocytes/100 WBC (Bld) 11.6 % Normal 1.7-12.0 [facility] Comment on above: Performed By: #### M G, BMP #### [facility] [address] [place] [address] Dr. Carole Carvalho NEUT # 7.0 103/ul Critically high 1.4-6.5 [facility] Comment on above: Performed By: #### M G, BMP #### [facility] [address] [place] [address] Dr. Carole Carvalho Neutrophils/100 WBC (Bld) 70.6 % Normal 43.0-75.0 [facility] Comment on above: Performed By: #### M G, BMP #### [facility] [address] [place] [address] Dr. Carole aCrvalho Platelet mean volume (Bld) [ Entitic vol] 11.8 fL Normal 9.5-13.5 [facility] Comment on above: Performed By: #### M G, BMP #### [facility] [address] [address] [address] Carole Carvalho PLT 168 103/ul Normal 150-450 [facility] ostal Comment on above: Performed By: #### M G, BMP #### [facility] [address] [place] [address] Dr. Carole Carvalho RBC 3.39 106/ul Critically low 4.70-6.10 [facility] Comment on above: Performed By: #### M G, BMP #### [facility] [address] [place] [address] Dr. Carole Carvalho WBC 9.9 103/ul Normal 4.0-11.0 [facility] Comment on above: Performed By: #### M G, BMP #### [facility] [address] [place] [address] Dr. Carole Carvalho MAGNESIUMon 07-25-2021 Magnesium [Mass/Vol] 1.9 mg/dL Normal 1.8-2.4 [facility] Comment on above: Performed By: #### M G, BMP #### [facility] [address] [place] [address] Dr. Carole Carvalho PROF CHEM 8 (BAS METB)on Anion gap [Moles/Vol] 6.5 mmol/L Normal [facility] Comment on above: Performed By: #### M G, BMP #### [facility] [address] [place] [address] Dr. Carole Carvalho Calcium [Mass/Vol] 8.8 mg/dL Normal 8.5-10.1 [facility] Comment on above: Performed By: #### M G, BMP #### [facility] [address] [place] [address] Dr. Carole Carvalho Chloride [Moles/Vol] 99 mmol/L Normal 98-107 [facility] Comment on above: Performed By: #### M G, BMP #### [facility] [address] [place] [address] Dr. Carole Carvalho CO2 [Moles/Vol] 33.5 mmol/L Critically high 21.0-32.0 [facility] Comment on above: Performed By: #### M G, BMP #### [facility] [address] [place] [address] Dr. Carole Carvalho Creatinine [Mass/Vol] 0.89 mg/dL Normal 0.70-1.30 [facility] Comment on above: Performed By: #### M G, BMP #### [facility] [address] [place] [address] Dr. Carole Carvalho EGFR-AF BERMUDIAN >60 Normal >=60 [facility] Comment on above: Performed By: #### Holly G, BMP #### [facility] [address] [place] [address] Dr. Carole Cravalho EGFR-NON AF BERMUDIAN >60 Normal >=60 [facility] Comment on above: Performed By: #### M G, BMP #### [facility] [address] [place] [address] Dr. Carole Carvalho Glucose [Mass/Vol] 88 mg/dL Normal 74-106 [facility] Comment on above: Performed By: #### M G, BMP #### [facility] [address] [place] [address] Dr. Carole Carvalho Potassium [Moles/Vol] 4.0 mmol/L Normal 3.5-5.1 [facility] Comment on above: Performed By: #### M G, BMP #### [facility] [address] [place] [address] Dr. Carole Carvalho Sodium [Moles/Vol] 135 mmol/L Critically low 136-145 [facility] Comment on above: Performed By: #### M G, BMP #### [facility] [address] [place] [address] Dr. Carole Carvalho Urea nitrogen [Mass/Vol] 18.0 mg/dL Normal 7.0-18.0 [facility] Comment on above: Performed By: #### M G, BMP #### [facility] [address] [place] [address] Dr. Carole Carvalho Urea nitrogen/Creatinine [Mass ratio] 20.2 mg/mg Normal [facility] Comment on above: Performed By: #### M G, BMP #### [facility] [address] [place] [address] Dr. Carole Carvalho BLOOD CULTURE ID/SENSon 05-2 [facility] ID + Suscept Final report Abnormal [facility] Comment on above: Performed By: #### M G #### [facility] [address] [place] [address] Dr. Carole Carvalho Performed By: #### M G, BMP #### [facility] [address] [place] [address] Dr. Carole Carvalho Performed By: #### B CONTACT CLERK #### [facility] [address] [place] [address] Dr. Carole Carvalho Antimicrobial Susceptibility Comment Normal [facility] Comment on above: Result Comment: S = Susceptible; I = Intermediate; R = Resistant P = Positive; N = Negative MICS are expressed in micrograms per mL Antibiotic RSLT#1 RSLT#2 RSLT#3 RSLT#4 Ciprofloxacin R Gentamicin S Levofloxacin I Linezolid S Moxifloxacin R Oxacillin S Penicillin R Quinupristin/Dalfopristin S Rifampin S Tetracycline S Trimethoprim/Sulfa S Vancomycin S Performed By: #### M G #### [facility] [address] [place] [address] Dr. Carole Carvalho Result Comment: S = Susceptible; I = Intermediate; R = Resistant P = Positive; N = Negative MICS are expressed in micrograms per mL Antibiotic RSLT#1 RSLT#2 RSLT#3 RSLT#4 Ciprofloxacin R Gentamicin S Levofloxacin I Linezolid S Moxifloxacin I Oxacillin S Penicillin R Quinupristin/Dalfopristin S Rifampin S Tetracycline S Trimethoprim/Sulfa S Vancomycin S Performed By: #### M G, BMP #### [facility] [address] [place] [address] Dr. Carole Carvalho Performed By: #### B CONTACT CLERK #### [facility] [address] [place] [address] Dr. Carole Carvalho Result 1 Staphylococcus aureus Abnormal [facility] Comment on above: Result Comment: Maxwell robert from aerobic bottle only. Based on susceptibility to oxacillin this isolate would be susceptible to: *Penicillinase-stable penicillins, such as: Cloxacillin, Dicloxacillin, Nafcillin *Beta-lactam combination agents, such as: Amoxicillin-clavulanic acid, Ampicillin-sulbactam, Piperacillin-tazobactam *Oral cephems, such as: Cefaclor, Cefdinir, Cefpodoxime, Cefprozil, Cefuroxime, Cephalexin, Loracarbef *Parenteral cephems, such as: Cefazolin, Cefepime, Cefotaxime, Cefotetan, Ceftaroline, Ceftizoxime, Ceftriaxone, Cefuroxime *Carbapenems, such as: Doripenem, Ertapenem, Imipenem, Meropenem Performed By: #### M G #### [facility] [address] [place] [address] Dr. Carole Carvalho Result Comment: Maxwell robert from anaerobic bottle only. Based on susceptibility to oxacillin this isolate would be susceptible to: *Penicillinase-stable penicillins, such as: Cloxacillin, Dicloxacillin, Nafcillin *Beta-lactam combination agents, such as: Amoxicillin-clavulanic acid, Ampicillin-sulbactam, Piperacillin-tazobactam *Oral cephems, such as: Cefaclor, Cefdinir, Cefpodoxime, Cefprozil, Cefuroxime, Cephalexin, Loracarbef *Parenteral cephems, such as: Cefazolin, Cefepime, Cefotaxime, Cefotetan, Ceftaroline, Ceftizoxime, Ceftriaxone, Cefuroxime *Carbapenems, such as: Doripenem, Ertapenem, Imipenem, Meropenem Performed By: #### M G, BMP #### [facility] [address] [place] [address] Dr. Carole Carvalho Performed By: #### B CONTACT CLERK #### [facility] [address] [place] [address] Dr. Carole Carvalho CBC AUTO DIFFon 07-24-2021 BASO # 0.0 103/ul Normal 0.0-0.1 [facility] Comment on above: Performed By: #### M G #### [facility] [address] [place] [address] Dr. Carole Carvalho Basophils/100 WBC (Bld) 0.2 % Normal 0.2-2.0 [facility] Comment on above: Performed By: #### M G #### [facility] [address] [place] [address] Dr. Carole Carvalho EO # 0.0 103/ul Normal 0.0-0.7 [facility] Comment on above: Performed By: #### M G #### [facility] [address] [place] [address] Dr. Carole Carvalho Eosinophils/100 WBC (Bld) 0.0 % Critically low 0.9-7. 0 [facility] Comment on above: Performed By: #### M G #### [facility] [address] [place] [address] Dr. Carole Carvalho Erythrocyte distribution wid th (RBC) [Ratio] 14.6 % Normal 11.0-15.0 [facility] Comment on above: Performed By: #### M G #### [facility] [address] [place] [address] Dr. Carole Carvalho Hematocrit (Bld) [Volume fraction] 34.2 % Critically low 42.0-54.0 [facility] Comment on above: Performed By: #### M G #### [facility] [address] [place] [address] Dr. Carole Carvalho Hemoglobin (Bld) [Mass/Vol] 10.3 g/dL Critically low 14.0 -18.0 [facility] Comment on above: Performed By: #### M G #### [facility] [address] [place] [address] Dr. Carole Carvalho IG # 0.04 10e3/ul Critically high 0.00-0.03 [facility] Comment on above: Performed By: #### M G #### [facility] [address] [place] [address] Dr. Carole Carvalho IG % 0.5 % Normal 0.0-0.5 [facility] Comment on above: Performed By: #### M G #### [facility] [address] [place] [address] Dr. Carole Carvalho LYMPH # 1.6 103/ul Normal 1.2-3.8 [facility] Comment on above: Performed By: #### M G #### [facility] [address] [place] [address] Dr. Carole Carvalho Lymphocytes/100 WBC (Bld) 18.1 % Critically low 20.5-6 0.0 [facility] Comment on above: Performed By: #### M G #### [facility] [address] [place] [address] Dr. Carole Carvalho MANUAL DIFF REQ NO Normal [facility] Comment on above: Performed By: #### M G #### [facility] [address] [place] [address] Dr. Carole Carvalho MCH (RBC) [Entitic mass] 29.8 pg Normal 25.9-34.0 [facility] Comment on above: Performed By: #### M G #### [facility] [address] [place] [address] Dr. Carole Carvahlo MCHC (RBC) [Mass/Vol] 30.1 g/dL Normal 29.9-35.2 [facility] Comment on above: Performed By: #### M G #### [facility] [address] [place] [address] Dr. Carole Carvalho MCV (RBC) [Entitic vol] 98.8 fL Critically high 80.0-94 .0 [facility] Comment on above: Performed By: #### M G #### [facility] [address] [place] [address] Dr. Carole Carvalho MONO # 1.1 103/ul Critically high 0.3-0.8 [facility] Comment on above: Performed By: #### M G #### [facility] [address] [place] [address] Dr. Carole Carvalho Monocytes/100 WBC (Bld) 12.6 % Critically high 1.7-12. [address] [facility] Comment on above: Performed By: #### M G #### [facility] [address] [place] [address] Dr. Carole Carvalho NEUT # 5.9 103/ul Normal 1.4-6.5 [facility] Comment on above: Performed By: #### M G #### [facility] [address] [place] [address] Dr. Carole Carvalho Neutrophils/100 WBC (Bld) 68.6 % Normal 43.0-75.0 [facility] Comment on above: Performed By: #### M G #### [facility] [address] [place] [address] Dr. Carole Carvalho Platelet mean volume (Bld) [ Entitic vol] 11.7 fL Normal 9.5-13.5 [facility] Comment on above: Performed By: #### M G #### [facility] [address] [place] [address] Dr. Carole Carvalho PLT 142 103/ul Critically low 150-450 [facility] Comment on above: Performed By: #### M G #### [facility] [address] [place] [address] Dr. Carole Carvalho RBC 3.46 106/ul Critically low 4.70-6.10 [facility] Comment on above: Performed By: #### M G #### [facility] [address] [place] [address] Dr. Carole Carvalho WBC 8.6 103/ul Normal 4.0-11.0 [facility] Comment on above: Performed By: #### M G #### [facility] [address] [place] [address] Dr. Carole Carvalho MAGNESIUMon 07-24-2021 Magnesium [Mass/Vol] 1.9 mg/dL Normal 1.8-2.4 [facility] Comment on above: Performed By: #### B CONTACT CLERK #### [facility] [address] [place] [address] Dr. Carole Carvalho OCC BLD IMMUNO SCREENon 06-29 OCCULT BLOOD Positive Abnormal NEGATIVE [facility] Comment on above: Performed By: #### C VDTBH #### [facility] [address] [place] [address] Dr. Carole Carvalho PROF CHEM 8 (BAS METB)on Anion gap [Moles/Vol] 4.7 mmol/L Normal [facility] Comment on above: Performed By: #### B CONTACT CLERK #### [facility] [address] [place] [address] Dr. Carole Carvalho Calcium [Mass/Vol] 8.2 mg/dL Critically low 8.5-10.1 [facility] Comment on above: Performed By: #### B CONTACT CLERK #### [facility] [address] [place] [address] Dr. Carole Carvalho Chloride [Moles/Vol] 96 mmol/L Critically low 98-107 [facility] Comment on above: Performed By: #### B CONTACT CLERK #### [facility] [address] [place] [address] Dr. Carole Carvalho CO2 [Moles/Vol] 36.1 mmol/L Critically high 21.0-32.0 [facility] Comment on above: Performed By: #### B CONTACT CLERK #### [facility] [address] [place] [address] Dr. Carole Carvalho Creatinine [Mass/Vol] 0.59 mg/dL Critically low 0.70-1.30 [facility] Comment on above: Performed By: #### B CONTACT CLERK #### [facility] [address] [place] [address] Dr. Carole Carvalho EGFR-AF BERMUDIAN >60 Normal >=60 [facility] Comment on above: Performed By: #### B CONTACT CLERK #### [facility] [address] [place] [address] Dr. Carole Carvalho EGFR-NON AF BERMUDIAN >60 Normal >=60 [facility] Comment on above: Performed By: #### B CONTACT CLERK #### [facility] [address] [address] [address] Carole Carvalho Glucose [Mass/Vol] 104 mg/dL Normal 74-106 [facility] Comment on above: Performed By: #### B CONTACT CLERK #### [facility] [address] [address] [address] Carole Carvalho Potassium [Moles/Vol] 3.8 mmol/L Normal 3.5-5.1 [facility] Comment on above: Performed By: #### B CONTACT CLERK #### [facility] [address] [place] [address] Dr. Carole Carvalho Sodium [Moles/Vol] 133 mmol/L Critically low 136-145 [facility] Comment on above: Performed By: #### B CONTACT CLERK #### [facility] [address] [place] [address] Dr. Carole Carvalho Urea nitrogen [Mass/Vol] 10.0 mg/dL Normal 7.0-18.0 [facility] Comment on above: Performed By: #### B CONTACT CLERK #### [facility] [address] [place] [address] Dr. Carole Carvalho Urea nitrogen/Creatinine [Mass ratio] 16.9 mg/mg Normal [facility] Comment on above: Performed By: #### B CONTACT CLERK #### [facility] [address] [place] [address] Dr. Carole Carvalho CBC AUTO DIFFon 07-23-2021 BASO # 0.0 103/ul Normal 0.0-0.1 [facility] Comment on above: Performed By: #### M G, BMP #### [facility] [address] [place] [address] Dr. Carole Carvalho Basophils/100 WBC (Bld) 0.3 % Normal 0.2-2.0 [facility] Comment on above: Performed By: #### M G, BMP #### [facility] [address] [place] [address] Dr. Carole Carvalho EO # 0.0 103/ul Normal 0.0-0.7 [facility] Comment on above: Performed By: #### M G, BMP #### [facility] [address] [place] [address] Dr. Carole Carvalho Eosinophils/100 WBC (Bld) 0.0 % Critically low 0.9-7. [address] [facility] Comment on above: Performed By: #### M G, BMP #### [facility] [address] [place] [address] Dr. Carole Carvalho Erythrocyte distribution wid th (RBC) [Ratio] 14.6 % Normal 11.0-15.0 [facility] Comment on above: Performed By: #### M G, BMP #### [facility] [address] [place] [address] Dr. Carole Carvalho Hematocrit (Bld) [Volume fraction] 33.8 % Critically low 42.0-54.0 [facility] Comment on above: Performed By: #### Holly Gómez, BMP #### [facility] [address] [place] [address] Dr. Carole Carvalho Hemoglobin (Bld) [Mass/Vol] 10.2 g/dL Critically low 14.0 -18.[address] [facility] Comment on above: Performed By: #### Holly Gómez, BMP #### [facility] [address] [place] [address] Dr. Carole Carvalho IG # 0.03 10e3/ul Normal 0.00-0.[address] [facility] Comment on above: Performed By: #### M G, BMP #### [facility] [address] [place] [address] Dr. Carole Carvalho IG % 0.4 % Normal 0.0-0.5 [facility] Comment on above: Performed By: #### M G, BMP #### [facility] [address] [place] [address] Dr. Carole Carvalho LYMPH # 1.0 103/ul Critically low 1.2-3.8 [facility] Comment on above: Performed By: #### M G, BMP #### [facility] [address] [place] [address] Dr. Carole Carvalho Lymphocytes/100 WBC (Bld) 14.1 % Critically low 20.5-[address] [facility] Comment on above: Performed By: #### M G, BMP #### [facility] [address] [place] [address] Dr. Craole Carvalho MANUAL DIFF REQ NO Normal [facility] Comment on above: Performed By: #### M G, BMP #### [facility] [address] [place] [address] Dr. Carole Carvalho MCH (RBC) [Entitic mass] 30.3 pg Normal 25.9-34.[address] [facility] Comment on above: Performed By: #### M G, BMP #### [facility] [address] [place] [address] Dr. Carole Carvalho MCHC (RBC) [Mass/Vol] 30.2 g/dL Normal 29.9-35.[address] [facility] Comment on above: Performed By: #### M G, BMP #### [facility] [address] [place] [address] Dr. Carole Carvalho MCV (RBC) [Entitic vol] 100.3 fL Critically high 80.0-[address] [facility] Comment on above: Performed By: #### M G, BMP #### [facility] [address] [place] [address] Dr. Carole Carvalho MONO # 1.0 103/ul Critically high 0.3-0.8 [facility] Comment on above: Performed By: #### M G, BMP #### [facility] [address] [place] [address] Dr. Carole Carvalho Monocytes/100 WBC (Bld) 13.2 % Critically high 1.7-12. [address] [facility] Comment on above: Performed By: #### M G, BMP #### [facility] [address] [place] [address] Dr. Carole Carvalho NEUT # 5.3 103/ul Normal 1.4-6.5 [facility] Comment on above: Performed By: #### M G, BMP #### [facility] [address] [place], [place] [address] Dr. Carole Carvalho Neutrophils/100 WBC (Bld) 72.0 % Normal 43.0-75.[address] [facility] Comment on above: Performed By: #### M G, BMP #### [facility] [address] [address] [address] Carole Carvalho Platelet mean volume (Bld) [ Entitic vol] 12.2 fL Normal 9.5-13.5 [facility] Comment on above: Performed By: #### M G, BMP #### [facility] [address] [address] [address] Carole Carvalho PLT 120 103/ul Critically low 150-450 [facility] Comment on above: Performed By: #### M G, BMP #### [facility] [address] [address] [address] Carole Carvalho RBC 3.37 106/ul Critically low 4.70-6.10 [facility] Comment on above: Performed By: #### M G, BMP #### [facility] [address] [address] [address] Carole Carvalho WBC 7.3 103/ul Normal 4.0-11.0 [facility] Comment on above: Performed By: #### M G, BMP #### [facility] [address] CHEST WO CONon 07-23-2021 CT CHEST WO CON EXAMINATION: CT CHES T WO CON HISTORY: SHORTNESS OF BREATH , right chest COMPARISON: 07/17/2021 TECHNIQUE: Multi-planar CT images were created with IV contrast. Axial, Coronal, and Sagittal images. Dose reduction techniques were achieved by using automated exposure control and/or adjustment of mA and/or kV according to patient size and/or use of iterative reconstruction technique. FINDINGS: LUNGS: There is been interval development of multiple wedge-shaped areas of consolidation scattered throughout both lungs a significant change from the prior exam. Scattered pulmonary nodules the largest solid nodule is identified in the superior segment of the right lower lobe measuring 10 mm in diameter, axial image 72, stable. Peribronchial thickening. Partial consolidation of both lower lobes right greater than left. Moderate stable centrilobular emphysema PLEURA: 3.1 cm right and 2.7 cm left pleural effusions. No pneumothorax VASCULATURE: No abnormality. JUSTINE: Calcified hilar lymph nodes MEDIASTINUM: Scattered lymph nodes, enlarged pretracheal lymph node measuring 2.2 x 1.1 cm CARDIAC: No enlargement or pericardial effusion. Mild coronary atherosclerosis AORTA: No aortic aneurysm. Atherosclerosis. CHEST WALL: No mass or axillary adenopathy. BONES: No bone lesion or fracture. LIMITED ABDOMEN: Punctate liver and spleen calcifications, prior granulomatous process OTHER: Negative. IMPRESSION: Multiple new peripheral areas of wedge-shaped consolidation bilateral lungs, consideration should be given to peripheral pulmonary emboli. Pulmonary embolus cannot be evaluated on this noncontrast exam Increased bibasilar consolidation and pleural effusions Moderate centrilobular emphysema Electronically authenticated by: ANNA EUGENE Date: 2021-07-23 08:38 Normal [facility] CTA CHEST WO W CONon 022 CTA CHEST WO W CON EXAMINATION: CTA HANANE ST WO W CON HISTORY: Acute hypoxemic respiratory failure , acute chest pain, new onset atrial fibrillation COMPARISON: CT chest 07/23/2021 8:09 AM, CTA chest 07/17/2021 TECHNIQUE: Multi-planar CT images were created with IV contrast. Axial, Coronal, and Sagittal images. Dose reduction techniques were achieved by using automated exposure control and/or adjustment of mA and/or kV according to patient size and/or use of iterative reconstruction technique. 3-D reconstruction was performed on a separate workstation. FINDINGS: VASCULATURE: No pulmonary embolism or abnormal opacity. LUNGS: Several peripheral based opacities which are stable compared to earlier today, but are new compared to 07/17/2021. Stable mild atelectasis versus infiltrates within the posterior lung bases. PLEURA: Stable large bilateral pleural effusions. JUSTINE: Calcified lymph nodes. MEDIASTINUM: Slightly prominent pretracheal lymph node, likely reactive. CARDIAC: No enlargement, pericardial effusion, or pericardial thickening. AORTA: No aneurysm or dissection. CHEST WALL: No mass or axillary adenopathy. BONES: No bone lesion or fracture. LIMITED ABDOMEN: No suspicious findings. Limited images of the upper abdomen. OTHER: Negative. IMPRESSION: 1. No pulmonary emboli. 2. Suspect multifocal infiltrates/pneumonia. 3. Nonspecific 11 mm round opacity pulmonary nodule within posterior medial right lung base. 4. Large bilateral pleural effusions. 5. Mild lymphadenopathy, likely reactive. Electronically authenticated by: KATE BUSH Date: 2021-07-23 11:56 Normal [facility] MAGNESIUMon 07-23-2021 Magnesium [Mass/Vol] 2.1 mg/dL Normal 1.8-2.4 [facility] Comment on above: Performed By: #### C BC #### [facility] [address] [address] [address] Carole Carvalho PROF CHEM 8 (BAS METB)on Anion gap [Moles/Vol] 3.3 mmol/L Normal [facility] Comment on above: Performed By: #### C BC #### [facility] [address] [address] [address] Carole Carvalho Calcium [Mass/Vol] 8.3 mg/dL Critically low 8.5-10.1 [facility] Comment on above: Performed By: #### C BC #### [facility] [address] [address] [address] Carole Carvalho Chloride [Moles/Vol] 95 mmol/L Critically low 98-107 [facility] Comment on above: Performed By: #### C BC #### [facility] [address] [address] [address] Carole Carvalho CO2 [Moles/Vol] 38.7 mmol/L Critically high 21.0-32.0 [facility] Comment on above: Performed By: #### C BC #### [facility] [address] [address] [address] Carole Carvalho Creatinine [Mass/Vol] 0.63 mg/dL Critically low 0.70-1.30 [facility] Comment on above: Performed By: #### C BC #### [facility] [address] [place] [address] Dr. Carole Carvalho EGFR-AF BERMUDIAN >60 Normal >=60 [facility] Comment on above: Performed By: #### C BC #### [facility] [address] [address] [address] Carole Carvalho EGFR-NON AF BERMUDIAN >60 Normal >=60 [facility] Comment on above: Performed By: #### C BC #### [facility] [address] [address] [address] Carole Carvalho Glucose [Mass/Vol] 95 mg/dL Normal 74-106 [facility] Comment on above: Performed By: #### C BC #### [facility] [address] [address] [address] Carole Carvalho Potassium [Moles/Vol] 4.0 mmol/L Normal 3.5-5.1 [facility] Comment on above: Performed By: #### C BC #### [facility] [address] [address] [address] Carole Carvalho Sodium [Moles/Vol] 133 mmol/L Critically low 136-145 [facility] Comment on above: Performed By: #### C BC #### [facility] [address] [address] [address] Carole Carvalho Urea nitrogen [Mass/Vol] 15.0 mg/dL Normal 7.0-18.0 [facility] Comment on above: Performed By: #### C BC #### [facility] [address] [address] [address] Carole Carvalho Urea nitrogen/Creatinine [Mass ratio] 23.8 mg/mg Normal [facility] Comment on above: Performed By: #### C BC #### [facility] [address] [address] [address] Carole Carvalho XR CHEST 1 Von 07-23-2021 XR CHEST 1 V EXAM: XR CHEST 1 V 11:20 PM EDT OH001 CLINICAL STATEMENT: SHORTNESS OF BREATH COMPARISON: 07/23/2021 TECHNIQUE: .Single AP radiograph of the chest is submitted. FINDINGS: There is right lower lobe opacity with adjacent airspace disease and interstitial changes. The cardiac silhouette is normal. Mild right pleural effusion. No pneumothorax. The bony elements are unremarkable. IMPRESSION: Right lower lobe opacity with adjacent airspace disease and interstitial changes. May consider CT chest. Mild right pleural effusion. FOLLOW-UP: Follow-up as clinically indicated. Electronically authenticated by: ANA MARIA SAID Date: 2021-07-23 05:[address] [facility] CBC AUTO DIFFon 07-22-2021 BASO # 0.0 103/ul Normal 0.0-0.1 [facility] Comment on above: Performed By: #### L ACT #### [facility] [address] [place] [address] Dr. Carole Carvalho Basophils/100 WBC (Bld) 0.3 % Normal 0.2-2.0 [facility] Comment on above: Performed By: #### L ACT #### [facility] [address] [place] [address] Dr. Carole Carvalho EO # 0.0 103/ul Normal 0.0-0.7 [facility] Comment on above: Performed By: #### L ACT #### [facility] [address] [place] [address] Dr. Carole Carvalho Eosinophils/100 WBC (Bld) 0.0 % Critically low 0.9-7. 0 [facility] Comment on above: Performed By: #### L ACT #### [facility] [address] [place] [address] Dr. Carole Carvalho Erythrocyte distribution wid th (RBC) [Ratio] 14.6 % Normal 11.0-15.0 [facility] Comment on above: Performed By: #### L ACT #### [facility] [address] [place] [address] Dr. Carole Carvalho Hematocrit (Bld) [Volume fraction] 34.6 % Critically low 42.0-54.0 [facility] Comment on above: Performed By: #### L ACT #### [facility] [address] [place] [address] Dr. Carole Carvalho Hemoglobin (Bld) [Mass/Vol] 10.6 g/dL Critically low 14.0 -18.0 [facility] Comment on above: Performed By: #### L ACT #### [facility] [address] [place] [address] Dr. Carole Carvalho IG # 0.02 10e3/ul Normal 0.00-0.03 [facility] Comment on above: Performed By: #### L ACT #### [facility] [address] [place] [address] Dr. Carole Carvalho IG % 0.3 % Normal 0.0-0.5 [facility] Comment on above: Performed By: #### L ACT #### [facility] [address] [place] [address] Dr. Carole Carvalho LYMPH # 0.6 103/ul Critically low 1.2-3.8 [facility] Comment on above: Performed By: #### L ACT #### [facility] [address] [place] [address] Dr. Carole Carvalho Lymphocytes/100 WBC (Bld) 8.4 % Critically low 20.5-6 0.0 [facility] Comment on above: Result Comment: dif. not rqd. same as 07/21 Performed By: #### L ACT #### [facility] [address] [place] [address] Dr. Carole Carvalho MANUAL DIFF REQ NO Normal [facility] Comment on above: Performed By: #### L ACT #### [facility] [address] [place] [address] Dr. Carole Carvalho MCH (RBC) [Entitic mass] 30.6 pg Normal 25.9-34.0 [facility] Comment on above: Performed By: #### L ACT #### [facility] [address] [place] [address] Dr. Carole Carvalho MCHC (RBC) [Mass/Vol] 30.6 g/dL Normal 29.9-35.2 [facility] Comment on above: Performed By: #### L ACT #### [facility] [address] [place] [address] Dr. Carole Carvalho MCV (RBC) [Entitic vol] 100.0 fL Critically high 80.0-94 .0 [facility] Comment on above: Performed By: #### L ACT #### [facility] [address] [place] [address] Dr. Carole Carvalho MONO # 0.8 103/ul Normal 0.3-0.8 [facility] Comment on above: Performed By: #### L ACT #### [facility] [address] [place] [address] Dr. Carole Carvalho Monocytes/100 WBC (Bld) 11.5 % Normal 1.7-12.0 [facility] Comment on above: Performed By: #### L ACT #### [facility] [address] [place] [address] Dr. Carole Carvalho NEUT # 5.2 103/ul Normal 1.4-6.5 [facility] Comment on above: Performed By: #### L ACT #### [facility] [address] [place] [address] Dr. Carole Carvalho Neutrophils/100 WBC (Bld) 79.5 % Critically high 43.0- 75.0 [facility] Comment on above: Performed By: #### L ACT #### [facility] [address] [place] [address] Dr. Carole Carvalho Platelet mean volume (Bld) [ Entitic vol] 11.9 fL Normal 9.5-13.5 [facility] Comment on above: Performed By: #### L ACT #### [facility] [address] [place] [address] Dr. Carole Carvalho PLT 115 103/ul Critically low 150-450 [facility] Comment on above: Performed By: #### L ACT #### [facility] [address] [place] [address] Dr. Carole Carvalho RBC 3.46 106/ul Critically low 4.70-6.10 [facility] Comment on above: Performed By: #### L ACT #### [facility] [address] [place] [address] Dr. Carole Carvalho WBC 6.5 103/ul Normal 4.0-11.0 [facility] Comment on above: Performed By: #### L ACT #### [facility] [address] [place] [address] Dr. Carole Carvalho MAGNESIUMon 07-22-2021 Magnesium [Mass/Vol] 2.0 mg/dL Normal 1.8-2.4 [facility] Comment on above: Performed By: #### M G #### [facility] [address] [place] [address] Dr. Carole Carvalho PROF CHEM 8 (BAS METB)on Anion gap [Moles/Vol] 6.2 mmol/L Normal [facility] Comment on above: Performed By: #### M G #### [facility] [address] [address] [address] Carole Carvalho Calcium [Mass/Vol] 8.4 mg/dL Critically low 8.5-10.1 [facility] Comment on above: Performed By: #### M G #### [facility] [address] [place] [address] Dr. Carole Carvalho Chloride [Moles/Vol] 94 mmol/L Critically low 98-107 [facility] Comment on above: Performed By: #### M G #### [facility] [address] [place] [address] Dr. Carole Carvalho CO2 [Moles/Vol] 39.0 mmol/L Critically high 21.0-32.0 [facility] Comment on above: Performed By: #### M G #### [facility] [address] [place] [address] Dr. Carole Carvalho Creatinine [Mass/Vol] 0.72 mg/dL Normal 0.70-1.30 [facility] Comment on above: Performed By: #### M G #### [facility] [address] [place] [address] Dr. Carole Carvalho EGFR-AF BERMUDIAN >60 Normal >=60 [facility] Comment on above: Performed By: #### M G #### [facility] [address] [place] [address] Dr. Carole Carvalho EGFR-NON AF BERMUDIAN >60 Normal >=60 [facility] Comment on above: Performed By: #### M G #### [facility] [address] [place] [address] Dr. Carole Carvalho Glucose [Mass/Vol] 97 mg/dL Normal 74-106 [facility] Comment on above: Performed By: #### M G #### [facility] [address] [address] [address] Carole Carvalho Potassium [Moles/Vol] 4.2 mmol/L Normal 3.5-5.1 [facility] Comment on above: Performed By: #### M G #### [facility] [address] [address] [address] Carole Carvalho Sodium [Moles/Vol] 135 mmol/L Critically low 136-145 [facility] Comment on above: Performed By: #### M G #### [facility] [address] [place] [address] Dr. Carole Carvalho Urea nitrogen [Mass/Vol] 16.0 mg/dL Normal 7.0-18.0 [facility] Comment on above: Performed By: #### M G #### [facility] [address] [address] [address] Carole Carvalho Urea nitrogen/Creatinine [Mass ratio] 22.2 mg/mg [facility] Comment on above: Performed By: #### M G #### [facility] [address] [place] [address] Dr. Carole Carvalho BLOOD CULTURE ID PANELon A. baumannii Not detected Normal [facility] Comment on above: Performed By: #### L ACT #### [facility] [address] [address] [address] Carole Carvalho BCID CONTROLS PASSED Normal [facility] Comment on above: Performed By: #### L ACT #### [facility] [address] [address] [address] Carole Carvalho BCIDBTHD BLOOD CULTURE BOTTLE INFORMATION Normal [facility] Comment on above: Performed By: #### L ACT #### [facility] [address] [place] [address] Dr. Carole Carvalho BCIDHD1 ANTIMICROBIAL RESISTANCE GENES [facility] Comment on above: Performed By: #### L ACT #### [facility] [address] [place] [address] Dr. Carole Carvalho BCIDHD2 SEE BELOW Normal [facility] Comment on above: Result Comment: KPC- carbapenem resistance gene, mecA- methecillin resistance gene, van A/B- vancomycin resistance gene Note: Antimicrobial resitance can occur via multiple mechanisms. A Not Detected result for the Film[employer] antomicrobial resistance gene assays does not indicate antimicrobial susceptibility. Subculturing is required for specis identificationand susceptibility testing of isolates. Performed By: #### L ACT #### [facility] [address] [place] [address] Dr. Carole Carvalho BCIDHD3 Positive Normal [facility] Comment on above: Performed By: #### L ACT #### [facility] [address] [place] [address] Dr. Carole Carvalho BCIDHD4 Negative Normal [facility] Comment on above: Performed By: #### L ACT #### [facility] [address] [place] [address] Dr. Carole Carvalho BCIDHD5 YEAST Normal [facility] Comment on above: Performed By: #### L ACT #### [facility] [address] [place] [address] Dr. Carole Carvalho BCIDHD6 SEE BELOW Normal [facility] Comment on above: Result Comment: Note : All genus and species BCID Film[employer] results will be verified post subculturing via Maldi-Tof MS testing methodology. Performed By: #### L ACT #### [facility] [address] [place] [address] Dr. Carole Carvalho Bottle Set: Set [address] [facility] Comment on above: Performed By: #### L ACT #### [facility] [address] [place] [address] Dr. Carole Carvalho Bottle: Anaerobic Normal [facility] Comment on above: Performed By: #### L ACT #### [facility] [address] [place] [address] Dr. Carole Carvalho Claudia albicans Not detected Normal [facility] Comment on above: Performed By: #### L ACT #### [facility] [address] [address] [address] Carole Carvalho Claudia glabrata Not detected Normal [facility] Comment on above: Performed By: #### L ACT #### [facility] [address] [address] [address] Carole Carvalho Claudia Krusei Not detected Normal [facility] Comment on above: Performed By: #### L ACT #### [facility] [address] [address] [address] Carole Carvalho Claudia Parapsilosis Not detected Normal [facility] Comment on above: Performed By: #### L ACT #### [facility] [address] [place] [address] Dr. Carole Carvalho Claudia Tropicalis Not detected Normal [facility] Comment on above: Performed By: #### L ACT #### [facility] [address] [place] [address] Dr. Carole Carvalho E. Cloacae complex Not detected Normal [facility] Comment on above: Performed By: #### L ACT #### [facility] [address] [address] [address] Carole Carvalho Enterobacteriaceae Not detected Normal [facility] Comment on above: Performed By: #### L ACT #### [facility] [address] [address] [address] Carole Carvalho Enterococcus Not detected Normal [facility] Comment on above: Performed By: #### L ACT #### [facility] [address] [address] [address] Carole Carvalho Escheria coli Not detected Normal [facility] Comment on above: Performed By: #### L ACT #### [facility] [address] [address] [address] Carole Carvalho K. oxytoca Not detected Normal [facility] Comment on above: Performed By: #### L ACT #### [facility] [address] [place] [address] Dr. Carole Carvalho K. pneumoniae Not detected Normal [facility] Comment on above: Performed By: #### L ACT #### [facility] [address] [address] [address] Carole Carvalho KPC Resistant Gene Not Applicable Normal [facility] Comment on above: Performed By: #### L ACT #### [facility] [address] [place] [address] Dr. Carole Carvalho List. monocytogenes Not detected Normal [facility] Comment on above: Performed By: #### L ACT #### [facility] [address] [address] [address] Carole Carvalho mecA Resistant Gene Not Applicable Normal [facility] Comment on above: Performed By: #### L ACT #### [facility] [address] [place] [address] Dr. Carole Carvalho Proteus Not detected Normal [facility] Comment on above: Performed By: #### L ACT #### [facility] [address] [place] [address] Dr. Carole Carvalho Pseud. aeruginosa Not detected Normal [facility] Comment on above: Performed By: #### L ACT #### [facility] [address] [place] [address] Dr. Carole Carvalho Seratia marcescens Not detected Normal [facility] Comment on above: Performed By: #### L ACT #### [facility] [address] [place] [address] Dr. Carole Carvalho Site: lt. hand Normal [facility] Comment on above: Performed By: #### L ACT #### [facility] [address] [place] [address] Dr. Carole Carvalho Staph. aureus Detected Critically abnormal [facility] Comment on above: Performed By: #### L ACT #### [facility] [address] [place] [address] Dr. Carole Carvalho Staphylococcus Detected Critically abnormal [facility] Comment on above: Performed By: #### L ACT #### [facility] [address] [place] [address] Dr. Carole Carvalho Strep. agalactiae Not detected Normal [facility] Comment on above: Performed By: #### L ACT #### [facility] [address] [place] [address] Dr. Carole Carvalho Strep. pneumoniae Not detected Normal [facility] Comment on above: Performed By: #### L ACT #### [facility] [address] [place] [address] Dr. Carole Carvalho Strep. pyogenes Not detected Normal [facility] Comment on above: Performed By: #### L ACT #### [facility] [address] [address] [address] Carole Carvalho Streptococcus Not detected Normal [facility] Comment on above: Performed By: #### L ACT #### [facility] [address] [place] [address] Dr. Carole Ackerman/Regulo Resist. Gene Not Applicable Normal [facility] Comment on above: Performed By: #### L ACT #### [facility] [address] [place] [address] Dr. Carole Carvalho CBC W MANUAL DIFFon 07-22-19 22 ANISOCYTOSIS 1+ Normal [facility] Comment on above: Performed By: #### M G, BMP #### [facility] [address] [place] [address] Dr. Carole Carvalho ATYPICAL LYMPH # Normal [facility] Comment on above: Performed By: #### M G, BMP #### [facility] [address] [place] [address] Dr. Carole Carvalho ATYPICAL LYMPH % Normal [facility] Comment on above: Performed By: #### M G, BMP #### [facility] [address] [place] [address] Dr. Carole Carvalho BAND # 0.1 103/ul Normal 0.0-0.3 [facility] Comment on above: Performed By: #### M G, BMP #### [facility] [address] [place] [address] Dr. Carole Carvalho BAND % 1 % Normal 0-5 [facility] Comment on above: Performed By: #### M G, BMP #### [facility] [address] [place] [address] Dr. Carole Carvalho BASOM # 0.00 103/ul Normal 0.00-0.10 [facility] Comment on above: Performed By: #### M G, BMP #### [facility] [address] [place] [address] Dr. Carole Carvalho BASOM % 0.0 % Critically low 0.2-2.0 [facility] Comment on above: Performed By: #### M G, BMP #### [facility] [address] [place] [address] Dr. Carole Carvalho BLAST # Normal [facility] Comment on above: Performed By: #### M G, BMP #### [facility] [address] [place] [address] Dr. Carole Carvalho BLAST % Normal [facility] Comment on above: Performed By: #### M G, BMP #### [facility] [address] [place] [address] Dr. Carole Carvalho CORRECTED WBC Normal 4.0-11.0 [facility] Comment on above: Performed By: #### M G, BMP #### [facility] [address] [place] [address] Dr. Carole Carvalho EOS # 0.00 103/ul Normal 0.00-0.70 [facility] Comment on above: Performed By: #### M G, BMP #### [facility] [address] [place] [address] Dr. Carole Carvalho EOS% 0.0 % Critically low 0.9-7.0 [facility] Comment on above: Performed By: #### M G, BMP #### [facility] [address] [place] [address] Dr. Carole Carvalho HCT 36.0 % Critically low 42.0-54.0 [facility] Comment on above: Performed By: #### M G, BMP #### [facility] [address] [place] [address] Dr. Carole Carvalho HGB 11.2 g/dl Critically low 14.0-18.0 [facility] Comment on above: Performed By: #### M G, BMP #### [facility] [address] [address] [address] Carole Carvalho LYMPHM # 0.43 103/ul Critically low 1.20-3.80 [facility] Comment on above: Performed By: #### M G, BMP #### [facility] [address] [address] [address] Carole Carvalho LYMPHM% 4.0 % Critically low 20.5-60.0 [facility] Comment on above: Performed By: #### M G, BMP #### [facility] [address] [address] [address] Carole Carvalho MCH 30.7 pg Normal 25.9-34.0 [facility] Comment on above: Performed By: #### M G, BMP #### [facility] [address] [address] [address] Carole Carvalho MCHC 31.1 g/dl Normal 29.9-35.2 [facility] Comment on above: Performed By: #### M G, BMP #### [facility] [address] [address] [address] Carole Carvalho MCV 98.6 fL Critically high 80.0-94.0 [facility] Comment on above: Performed By: #### M G, BMP #### [facility] [address] [address] [address] Carole Carvalho METAMYELOCYTE # Normal [facility] Comment on above: Performed By: #### M G, BMP #### [facility] [address] [address] [address] Carole Carvalho METAMYELOCYTE % Normal [facility] Comment on above: Performed By: #### M G, BMP #### [facility] [address] [address] [address] Carole Carvalho MONOM# 0.96 103/ul Critically high 0.30-0.80 [facility] Comment on above: Performed By: #### M G, BMP #### [facility] [address] [address] [address] Carole Carvalho MONOM% 9.0 % Normal 1.7-12.0 [facility] Comment on above: Performed By: #### M G, BMP #### [facility] [address] [place] [address] Dr. Carole Carvalho MPV 11.6 fL Normal 9.5-13.5 [facility] Comment on above: Performed By: #### M G, BMP #### [facility] [address] [place] [address] Dr. Carole Carvalho MYELOCYTE # Normal [facility] Comment on above: Performed By: #### M G, BMP #### [facility] [address] [place] [address] Dr. Carole Carvalho MYELOCYTE % Normal [facility] Comment on above: Performed By: #### M G, BMP #### [facility] [address] [place] [address] Dr. Carole Carvalho NRBC Normal [facility] Comment on above: Performed By: #### M G, BMP #### [facility] [address] [place] [address] Dr. Carole Carvalho PLT 113 103/ul Critically low 150-450 [facility] Comment on above: Performed By: #### M G, BMP #### [facility] [address] [place] [address] Dr. Carole Carvalho RBC 3.65 106/ul Critically low 4.70-6.10 [facility] Comment on above: Performed By: #### M G, BMP #### [facility] [address] [place] [address] Dr. Carole Carvalho RDW 14.6 % Normal 11.0-15.0 [facility] Comment on above: Performed By: #### M G, BMP #### [facility] [address] [place] [address] Dr. Carole Carvalho SEG # 9.20 103/ul Critically high 1.40-6.50 [facility] Comment on above: Performed By: #### M G, BMP #### [facility] [address] [place] [address] Dr. Carole Carvalho SEG % 86.0 % Critically high 43.0-75.0 [facility] Comment on above: Performed By: #### M G, BMP #### [facility] [address] [place] [address] Dr. Carole Carvalho WBC 10.7 103/ul Normal 4.0-11.0 [facility] Comment on above: Performed By: #### M G, BMP #### [facility] [address] [place] [address] Dr. Carole Carvalho MAGNESIUMon 07-21-2021 Magnesium [Mass/Vol] 2.0 mg/dL Normal 1.8-2.4 [facility] Comment on above: Performed By: #### B CONTACT CLERK #### [facility] [address] [place] [address] Dr. Carole Carvalho PROF CHEM 8 (BAS METB)on Anion gap [Moles/Vol] 1.9 mmol/L Normal [facility] Comment on above: Performed By: #### C VDTBH #### [facility] [address] [place] [address] Dr. Carole Carvalho Calcium [Mass/Vol] 8.7 mg/dL Normal 8.5-10.1 [facility] Comment on above: Performed By: #### C VDTBH #### [facility] [address] [place] [address] Dr. Carole Carvalho Chloride [Moles/Vol] 91 mmol/L Critically low 98-107 [facility] Comment on above: Performed By: #### C VDTBH #### [facility] [address] [place] [address] Dr. Carole Carvalho CO2 [Moles/Vol] 41.4 mmol/L Critically high 21.0-32.0 [facility] Comment on above: Performed By: #### C VDTBH #### [facility] [address] [place] [address] Dr. Carole Carvalho Creatinine [Mass/Vol] 0.90 mg/dL Normal 0.70-1.30 [facility] Comment on above: Performed By: #### C VDTBH #### [facility] [address] [place] [address] Dr. Carole Carvalho EGFR-AF BERMUDIAN >60 Normal >=60 [facility] Comment on above: Performed By: #### C VDTBH #### [facility] [address] [place] [address] Dr. Carole Carvalho EGFR-NON AF BERMUDIAN >60 Normal >=60 [facility] Comment on above: Performed By: #### C VDTBH #### [facility] [address] [place] [address] Dr. Carole Carvalho Glucose [Mass/Vol] 115 mg/dL Critically high 74-106 [facility] Comment on above: Performed By: #### C VDTBH #### [facility] [address] [place] [address] Dr. Carole Carvalho Potassium [Moles/Vol] 4.3 mmol/L Normal 3.5-5.1 [facility] Comment on above: Performed By: #### C VDTBH #### [facility] [address] [place] [address] Dr. Carole Carvalho Sodium [Moles/Vol] 130 mmol/L Critically low 136-145 [facility] Comment on above: Performed By: #### C VDTBH #### [facility] [address] [place] [address] Dr. Carole Carvalho Urea nitrogen [Mass/Vol] 14.0 mg/dL Normal 7.0-18.0 [facility] [facility] Comment on above: Performed By: #### C VDTBH #### [facility] [address] [place] [address] Dr. Carole Carvalho Urea nitrogen/Creatinine [Mass ratio] 15.6 mg/mg Normal [facility] Comment on above: Performed By: #### C VDTBH #### [facility] [address] [place] [address] Dr. Carole Carvalho CBC AUTO DIFFon 07-20-2021 BASO # 0.0 103/ul Normal 0.0-0.1 [facility] Comment on above: Performed By: #### B CONTACT CLERK #### [facility] [address] [place] [address] Dr. Carole Carvalho Basophils/100 WBC (Bld) 0.3 % Normal 0.2-2.0 [facility] Comment on above: Performed By: #### B CONTACT CLERK #### [facility] [address] [place] [address] Dr. Carole Carvalho EO # 0.0 103/ul Normal 0.0-0.7 [facility] Comment on above: Performed By: #### B CONTACT CLERK #### [facility] [address] [place] [address] Dr. Carole Carvalho Eosinophils/100 WBC (Bld) 0.0 % Critically low 0.9-7. 0 [facility] Comment on above: Performed By: #### B CONTACT CLERK #### [facility] [address] [place] [address] Dr. Carole Carvalho Erythrocyte distribution wid th (RBC) [Ratio] 14.6 % Normal 11.0-15.0 [facility] Comment on above: Performed By: #### B CONTACT CLERK #### [facility] [address] [place] [address] Dr. Carole Carvalho Hematocrit (Bld) [Volume fraction] 35.2 % Critically low 42.0-54.0 [facility] Comment on above: Performed By: #### B CONTACT CLERK #### [facility] [address] [place] [address] Dr. Carole Carvalho Hemoglobin (Bld) [Mass/Vol] 10.7 g/dL Critically low 14.0 -18.0 [facility] Comment on above: Performed By: #### B CONTACT CLERK #### [facility] [address] [place] [address] Dr. Carole Carvalho IG # 0.02 10e3/ul Normal 0.00-0.[address] [facility] Comment on above: Performed By: #### B CONTACT CLERK #### [facility] [address] [place] [address] Dr. Carole Carvalho IG % 0.3 % Normal 0.0-0.5 [facility] Comment on above: Performed By: #### B CONTACT CLERK #### [facility] [address] [place] [address] Dr. Carole Carvalho LYMPH # 0.4 103/ul Critically low 1.2-3.8 [facility] Comment on above: Performed By: #### B CONTACT CLERK #### [facility] [address] [place] [address] Dr. Carole Carvalho Lymphocytes/100 WBC (Bld) 5.5 % Critically low 20.5-6 0.0 [facility] Comment on above: Performed By: #### B CONTACT CLERK #### [facility] [address] [place] [address] Dr. Carole Carvalho MANUAL DIFF REQ NO Normal [facility] Comment on above: Performed By: #### B CONTACT CLERK #### [facility] [address] [place] [address] Dr. Carole Carvalho MCH (RBC) [Entitic mass] 30.2 pg Normal 25.9-34.0 [facility] Comment on above: Performed By: #### B CONTACT CLERK #### [facility] [address] [place] [address] Dr. Carole Carvalho MCHC (RBC) [Mass/Vol] 30.4 g/dL Normal 29.9-35.2 [facility] Comment on above: Performed By: #### B CONTACT CLERK #### [facility] [address] [place] [address] Dr. Carole Carvalho MCV (RBC) [Entitic vol] 99.4 fL Critically high 80.0-94 .0 [facility] Comment on above: Performed By: #### B CONTACT CLERK #### [facility] [address] [place] [address] Dr. Carole Carvalho MONO # 0.7 103/ul Normal 0.3-0.8 [facility] Comment on above: Performed By: #### B CONTACT CLERK #### [facility] [address] [place] [address] Dr. Carole Carvalho Monocytes/100 WBC (Bld) 8.4 % Normal 1.7-12.0 [facility] Comment on above: Performed By: #### B CONTACT CLERK #### [facility] [address] [place] [address] Dr. Carole Carvalho NEUT # 6.7 103/ul Critically high 1.4-6.5 [facility] Comment on above: Performed By: #### B CONTACT CLERK #### [facility] [address] [place] [address] Dr. Carole Carvalho Neutrophils/100 WBC (Bld) 85.5 % Critically high 43.0- 75.0 [facility] Comment on above: Performed By: #### B CONTACT CLERK #### [facility] [address] [place] [address] Dr. Carole Carvalho Platelet mean volume (Bld) [ Entitic vol] 11.7 fL Normal 9.5-13.5 [facility] Comment on above: Performed By: #### B CONTACT CLERK #### [facility] [address] [place] [address] Dr. Carole Carvalho PLT 137 103/ul Critically low 150-450 [facility] Comment on above: Performed By: #### B CONTACT CLERK #### [facility] [address] [place] [address] Dr. Carole Carvalho RBC 3.54 106/ul Critically low 4.70-6.10 [facility] Comment on above: Performed By: #### B CONTACT CLERK #### [facility] [address] [place] [address] Dr. Carole Carvalho WBC 7.9 103/ul Normal 4.0-11.0 [facility] Comment on above: Performed By: #### B CONTACT CLERK #### [facility] [address] [place] [address] Dr. Carole Carvalho CULTURE BLOODon 07-20-2021 Microscopic examination of blood, culture Culture Observations: Positive blood culture, both bottles. BCID=Staph. aureus. Sent to [facility]. Normal [facility] Comment on above: Performed By: #### L ACT #### [facility] [address] [place] [address] Dr. Carole Carvalho Microscopic examination of blood, culture Culture Observations: Positive blood culture, both bottles. BCID=Staph. aureus. Sent to [facility]. Normal [facility] Comment on above: Performed By: #### L ACT #### [facility] [address] [place] [address] Dr. Carole Carvalho LACTATE/LACTIC ACIDon 2021 Lactate [Moles/Vol] 0.7 mmol/L Normal 0.4-1.9 [facility] Comment on above: Performed By: #### L ACT #### [facility] [address] [place] [address] Dr. Carole Carvalho Lactate [Moles/Vol] 0.6 mmol/L Normal 0.4-1.9 [facility] Comment on above: Performed By: #### C VDTBH #### [facility] [address] [place] [address] Dr. Carole Carvalho LIVER PROFILEon 07-20-2021 Albumin [Mass/Vol] 2.3 g/dL Critically low 3.4-5.0 [facility] Comment on above: Performed By: #### M G #### [facility] [address] [place] [address] Dr. Carole Carvalho Albumin/Globulin [Mass ratio] 0.7 {ratio} Normal [facility] Comment on above: Performed By: #### M G #### [facility] [address] [place] [address] Dr. Carole Carvalho ALP [Catalytic activity/Vol] 87 U/L Normal 46-116 [facility] Comment on above: Performed By: #### M G #### [facility] [address] [place] [address] Dr. Caroel Carvalho ALT [Catalytic activity/Vol] 28 U/L Normal 16-63 [facility] Comment on above: Performed By: #### M G #### [facility] [address] [place] [address] Dr. Carole Carvalho AST [Catalytic activity/Vol] 21 U/L Normal 15-37 [facility] Comment on above: Performed By: #### M G #### [facility] [address] [address] [address] Carole Carvalho BILI, CONJUGATED 0.2 mg/dL Normal 0.0-0.2 [facility] Comment on above: Performed By: #### M G #### [facility] [address] [address] [address] Carole Carvalho Bilirubin [Mass/Vol] 0.8 mg/dL Normal 0.2-1.0 [facility] Comment on above: Performed By: #### M G #### [facility] [address] [place] [address] Dr. Carole Carvalho Globulin (S) [Mass/Vol] 3.2 g/dL Normal T [facility] Comment on above: Performed By: #### M G #### [facility] [address] [place] [address] Dr. Carole Carvalho Protein [Mass/Vol] 5.5 g/dL Critically low 6.4-8.2 [facility] Comment on above: Performed By: #### M G #### [facility] [address] [place] [address] Dr. Carole Carvalho MAGNESIUMon 07-20-2021 Magnesium [Mass/Vol] 1.7 mg/dL Critically low 1.8-2.4 [facility] Comment on above: Performed By: #### C VDTBH #### [facility] [address] [place] [address] Dr. Carole Carvalho PROF CHEM 8 (BAS METB)on Anion gap [Moles/Vol] 5.5 mmol/L Normal [facility] Comment on above: Performed By: #### C VDTBH #### [facility] [address] [place] [address] Dr. Carole Carvalho Calcium [Mass/Vol] 7.7 mg/dL Critically low 8.5-10.1 [facility] Comment on above: Performed By: #### C VDTBH #### [facility] [address] [place] [address] Dr. Carole Carvalho Chloride [Moles/Vol] 91 mmol/L Critically low 98-107 [facility] Comment on above: Performed By: #### C VDTBH #### [facility] [address] [address] [address] Carole Carvalho CO2 [Moles/Vol] 38.5 mmol/L Critically high 21.0-32.0 [facility] Comment on above: Performed By: #### C VDTBH #### [facility] [address] [address] [address] Carole Carvalho Creatinine [Mass/Vol] 0.67 mg/dL Critically low 0.70-1.30 [facility] Comment on above: Performed By: #### C VDTBH #### [facility] [address] [address] [address] Carole Carvalho EGFR-AF BERMUDIAN >60 Normal >=60 [facility] Comment on above: Performed By: #### C VDTBH #### [facility] [address] [address] [address] Carole Carvalho EGFR-NON AF BERMUDIAN >60 Normal >=60 [facility] Comment on above: Performed By: #### C VDTBH #### [facility] [address] [address] [address] Carole Carvalho Glucose [Mass/Vol] 97 mg/dL Normal 74-106 [facility] Comment on above: Performed By: #### C VDTBH #### [facility] [address] [address] [address] Carole Carvalho Potassium [Moles/Vol] 4.0 mmol/L Normal 3.5-5.1 [facility] Comment on above: Performed By: #### C VDTBH #### [facility] [address] [address] [address] Carole Carvalho Sodium [Moles/Vol] 131 mmol/L Critically low 136-145 [facility] Comment on above: Performed By: #### C VDTBH #### [facility] [address] [address] [address] Carole Carvalho Urea nitrogen [Mass/Vol] 13.0 mg/dL Normal 7.0-18.0 [facility] Comment on above: Performed By: #### C VDTBH #### [facility] [address] [place] [address] Dr. Carole Carvalho Urea nitrogen/Creatinine [Mass ratio] 19.4 mg/mg Normal [facility] Comment on above: Performed By: #### C VDTBH #### [facility] [address] [place] [address] Dr. Carole Carvalho UA (CLEAN/CATCH) BARTENDERS/MICRO I F IND.on 07-20-2021 Bilirubin Ql (U) Negative Normal NEGATIVE [facility] Comment on above: Performed By: #### L ACT #### [facility] [address] [place] [address] Dr. Carole Carvalho Clarity (U) CLEAR Normal CLEAR [facility] Comment on above: Performed By: #### L ACT #### [facility] [address] [place] [address] Dr. Carole Carvalho Color (U) YELLOW Normal YELLOW [facility] Comment on above: Performed By: #### L ACT #### [facility] [address] [place] [address] Dr. Carole Carvalho Glucose Ql (U) Negative Normal NEGATIVE [facility] Comment on above: Performed By: #### L ACT #### [facility] [address] [place] [address] Dr. Carole Carvalho Hemoglobin Ql (U) Negative Normal NEGATIVE [facility] Comment on above: Performed By: #### L ACT #### [facility] [address] [place] [address] Dr. Carole Carvalho Ketones Ql (U) Negative Normal NEGATIVE [facility] Comment on above: Performed By: #### L ACT #### [facility] [address] [place] [address] Dr. Carole Carvalho LEUKOCYTES Negative Normal NEGATIVE [facility] Comment on above: Performed By: #### L ACT #### [facility] [address] [place] [address] Dr. Carole Carvalho Nitrite Ql (U) Negative Normal NEGATIVE [facility] Comment on above: Performed By: #### L ACT #### [facility] [address] [place] [address] Dr. Carole Carvalho pH (U) 8.0 [pH] Normal 5-9 [facility] Comment on above: Performed By: #### L ACT #### [facility] [address] [place] [address] Dr. Carole Carvalho SPEC GRAVITY 1.015 Normal 1.005-<=1.025 [facility] Comment on above: Performed By: #### L ACT #### [facility] [address] [place] [address] Dr. Carole Carvalho UA PROTEIN Negative Normal NEGATIVE/ TRACE [facility] Comment on above: Performed By: #### L ACT #### [facility] [address] [place] [address] Dr. Carole Carvalho UR MICRO IND NOT INDICATED Normal [facility] Comment on above: Performed By: #### L ACT #### [facility] [address] [place] [address] Dr. Carole Carvalho Urobilinogen Qn (U) 1.0 {Anjali'U}/dL Normal 0.2 - 1. [address] [facility] Comment on above: Performed By: #### L ACT #### [facility] [address] [place] [address] Dr. Carole Carvalho XR CHEST 2 Von 07-20-2021 XR CHEST 2 V EXAM: XR CHEST 2 V HISTORY: SHORTNESS OF BREATH COMPARISON: 07/16/2021 TECHNIQUE: AP portable erect FINDINGS: LUNGS: No new focal parenchymal infiltrates VASCULATURE: No increased pulmonary vasculature. PLEURA: Blunting of the lateral and posterior costophrenic angles, small bilateral pleural effusions CARDIAC: No cardiomegaly or cardiac silhouette abnormality. MEDIASTINUM: Calcifications consistent with old granulomatous disease. BONES: No fracture or visible bone lesion. OTHER: Negative. IMPRESSION: Small bilateral pleural effusions Electronically authenticated by: ANNA EUGENE Date: 2021-07-20 07:[address] [facility] CBC AUTO DIFFon 07-19-2021 BASO # 0.0 103/ul Normal 0.0-0.1 [facility]al Comment on above: Performed By: #### C BC #### [facility] [address] [place] [address] Dr. Carole Carvalho Basophils/100 WBC (Bld) 0.2 % Normal 0.2-2.0 [facility] Comment on above: Performed By: #### C BC #### [facility] [address] [place] [address] Dr. Carole Carvalho EO # 0.0 103/ul Normal 0.0-0.7 [facility] Comment on above: Performed By: #### C BC #### [facility] [address] [place] [address] Dr. Carole Carvalho Eosinophils/100 WBC (Bld) 0.0 % Critically low 0.9-7. 0 [facility] Comment on above: Performed By: #### C BC #### [facility] [address] [place] [address] Dr. Carole Carvalho Erythrocyte distribution wid th (RBC) [Ratio] 14.6 % Normal 11.0-15.0 [facility] Comment on above: Performed By: #### C BC #### [facility] [address] [place] [address] Dr. Carole Carvalho Hematocrit (Bld) [Volume fraction] 35.4 % Critically low 42.0-54.0 [facility] Comment on above: Performed By: #### C BC #### [facility] [address] [place] [address] Dr. Carole Carvalho Hemoglobin (Bld) [Mass/Vol] 10.9 g/dL Critically low 14.0 -18.[address] [facility] Comment on above: Performed By: #### C BC #### [facility] [address] [place] [address] Dr. Carole Carvalho IG # 0.03 10e3/ul Normal 0.00-0.[address] [facility] Comment on above: Performed By: #### C BC #### [facility] [address] [address] [address] Carole Carvalho IG % 0.3 % Normal 0.0-0.5 [facility] Comment on above: Performed By: #### C BC #### [facility] [address] [address] [address] Carole Carvalho LYMPH # 0.3 103/ul Critically low 1.2-3.8 [facility] Comment on above: Performed By: #### C BC #### [facility] [address] [place] [address] Dr. Carole Carvalho Lymphocytes/100 WBC (Bld) 3.1 % Critically low 20.5-6 0.0 [facility] Comment on above: Performed By: #### C BC #### [facility] [address] [place] [address] Dr. Carole Carvalho MANUAL DIFF REQ NO Normal [facility] Comment on above: Performed By: #### C BC #### [facility] [address] [place] [address] Dr. Carole Carvalho MCH (RBC) [Entitic mass] 30.5 pg Normal 25.9-34.0 [facility] Comment on above: Performed By: #### C BC #### [facility] [address] [place] [address] Dr. Carole Carvalho MCHC (RBC) [Mass/Vol] 30.8 g/dL Normal 29.9-35.[address] [facility] Comment on above: Performed By: #### C BC #### [facility] [address] [place] [address] Dr. Carole Carvalho MCV (RBC) [Entitic vol] 99.2 fL Critically high 80.0-[address] [facility] Comment on above: Performed By: #### C BC #### [facility] [address] [place] [address] Dr. Carole Carvalho MONO # 1.2 103/ul Critically high 0.3-0.8 [facility] Comment on above: Performed By: #### C BC #### [facility] [address] [address] [address] Carole Carvalho Monocytes/100 WBC (Bld) 10.8 % Normal 1.7-12.0 [facility] Comment on above: Performed By: #### C BC #### [facility] [address] [place] [address] Dr. Carole Carvalho NEUT # 9.2 103/ul Critically high 1.4-6.5 [facility] Comment on above: Performed By: #### C BC #### [facility] [address] [place] [address] Dr. Carole Carvalho Neutrophils/100 WBC (Bld) 85.6 % Critically high 43.0- 75.[address] [facility] Comment on above: Performed By: #### C BC #### [facility] [address] [place] [address] Dr. Carole Carvalho Platelet mean volume (Bld) [ Entitic vol] 11.4 fL Normal 9.5-13.5 [facility] Comment on above: Performed By: #### C BC #### [facility] [address] [place] [address] Dr. Carole Carvalho PLT 157 103/ul Normal 150-450 [facility] Comment on above: Performed By: #### C BC #### [facility] [address] [place], [place] [id number] Dr. Carole Carvalho RBC 3.57 106/ul Critically low 4.70-6.10 [facility] Comment on above: Performed By: #### C BC #### [facility] [address] [place] [address] Dr. Carole Carvalho WBC 10.7 103/ul Normal 4.0-11.[address] [facility] Comment on above: Performed By: #### C BC #### [facility] [address] [place] [address] Dr. Carole Carvalho IRON AND TIBCon 07-19-2021 % SATURATION 8.6 % Normal [facility] Comment on above: Performed By: #### F ETIBC, B12FOL #### [facility] [address] [address] [address] Carole Carvalho Iron [Mass/Vol] 35.0 ug/dL Critically low 65.0-175.0 [facility] Comment on above: Performed By: #### F ETIBC, B12FOL #### [facility] [address] [place] [address] Dr. Carole Carvalho TIBC DIRECT 407.0 ug/dL Normal 250.0-450.0 [facility] Comment on above: Performed By: #### F ETIBC, B12FOL #### [facility] [address] [place] [address] Dr. Carole Carvalho MAGNESIUMon 07-19-2021 Magnesium [Mass/Vol] 1.7 mg/dL Critically low 1.8-2.4 [facility] Comment on above: Performed By: #### M G #### [facility] [address] [place] [address] Dr. Carole Carvalho PROF CHEM 8 (BAS METB)on Anion gap [Moles/Vol] 6.0 mmol/L Normal [facility] Comment on above: Performed By: #### M G #### [facility] [address] [place] [address] Dr. Carole Carvalho Calcium [Mass/Vol] 7.9 mg/dL Critically low 8.5-10.1 [facility] Comment on above: Performed By: #### M G #### [facility] [address] [place] [address] Dr. Carole Carvalho Chloride [Moles/Vol] 92 mmol/L Critically low 98-107 [facility] Comment on above: Performed By: #### M G #### [facility] [address] [place] [address] Dr. Carole Carvalho CO2 [Moles/Vol] 39.5 mmol/L Critically high 21.0-32.0 [facility] Comment on above: Performed By: #### M G #### [facility] [address] [place] [address] Dr. Carole Carvalho Creatinine [Mass/Vol] 0.64 mg/dL Critically low 0.70-1.30 [facility] Comment on above: Performed By: #### M G #### [facility] [address] [address] [address] Carole Carvalho EGFR-AF BERMUDIAN >60 Normal >=60 [facility] Comment on above: Performed By: #### M G #### [facility] [address] [address] [address] Carole Carvalho EGFR-NON AF BERMUDIAN >60 Normal >=60 [facility] Comment on above: Performed By: #### M G #### [facility] [address] [address] [address] Carole Carvalho Glucose [Mass/Vol] 110 mg/dL Critically high 74-106 [facility] Comment on above: Performed By: #### M G #### [facility] [address] [place] [address] Dr. Carole Carvalho Potassium [Moles/Vol] 3.5 mmol/L Normal 3.5-5.1 [facility] Comment on above: Performed By: #### M G #### [facility] [address] [place] [address] Dr. Carole Carvalho Sodium [Moles/Vol] 134 mmol/L Critically low 136-145 [facility] Comment on above: Performed By: #### M G #### [facility] [address] [place] [address] Dr. Carole Carvalho Urea nitrogen [Mass/Vol] 20.0 mg/dL Critically high 7.0-18 .0 [facility] Comment on above: Performed By: #### M G #### [facility] [address] [address] [address] Carole Carvalho Urea nitrogen/Creatinine [Mass ratio] 31.2 mg/mg Normal [facility] Comment on above: Performed By: #### M G #### [facility] [address] [place] [address] Dr. Carole Carvalho VIT B12 AND FOLATEon 07-19- 022 Cobalamin (Vitamin B12) [Mass/Vol] 481.0 pg/mL Normal 193.0-986.0 [facility] Comment on above: Performed By: #### L ACT #### [facility] [address] [place] [address] Dr. Carole Carvalho FOLATE 7.70 ng/mL Critically low 8.60-58.90 [facility] Comment on above: Performed By: #### L ACT #### [facility] [address] [place] [address] Dr. Carole Carvalho CBC AUTO DIFFon 07-18-2021 BASO # 0.0 103/ul Normal 0.0-0.1 [facility] Comment on above: Performed By: #### L ACT #### [facility] [address] [place] [address] Dr. Carole Carvalho Basophils/100 WBC (Bld) 0.2 % Normal 0.2-2.0 [facility] Comment on above: Performed By: #### L ACT #### [facility] [address] [place] [address] Dr. Carole Carvalho EO # 0.0 103/ul Normal 0.0-0.7 [facility] Comment on above: Performed By: #### L ACT #### [facility] [address] [place] [address] Dr. Carole Carvalho Eosinophils/100 WBC (Bld) 0.0 % Critically low 0.9-7. [address] [facility] Comment on above: Performed By: #### L ACT #### [facility] [address] [place] [address] Dr. Carole Carvalho Erythrocyte distribution wid th (RBC) [Ratio] 14.2 % Normal 11.0-15.0 [facility] Comment on above: Performed By: #### L ACT #### [facility] [address] [place] [address] Dr. Carole Carvalho Hematocrit (Bld) [Volume fraction] 38.1 % Critically low 42.0-54.0 [facility] Comment on above: Performed By: #### L ACT #### [facility] [address] [place] [address] Dr. Carole Carvalho Hemoglobin (Bld) [Mass/Vol] 11.4 g/dL Critically low 14.0 -18.0 [facility] Comment on above: Performed By: #### L ACT #### [facility] [address] [place] [address] Dr. Carole Carvalho IG # 0.03 10e3/ul Normal 0.00-0.03 [facility] Comment on above: Performed By: #### L ACT #### [facility] [address] [place] [address] Dr. Carole Carvalho IG % 0.3 % Normal 0.0-0.5 [facility] Comment on above: Performed By: #### L ACT #### [facility] [address] [place] [address] Dr. Carole Carvalho LYMPH # 1.1 103/ul Critically low 1.2-3.8 [facility] Comment on above: Performed By: #### L ACT #### [facility] [address] [place] [address] Dr. Carole Carvalho Lymphocytes/100 WBC (Bld) 12.2 % Critically low 20.5-6 0.0 [facility] Comment on above: Performed By: #### L ACT #### [facility] [address] [place] [address] Dr. Carole Carvalho MANUAL DIFF REQ NO Normal [facility] Comment on above: Performed By: #### L ACT #### [facility] [address] [place] [address] Dr. Carole Carvalho MCH (RBC) [Entitic mass] 30.4 pg Normal 25.9-34.0 [facility] Comment on above: Performed By: #### L ACT #### [facility] [address] [place] [address] Dr. Carole Carvalho MCHC (RBC) [Mass/Vol] 29.9 g/dL Normal 29.9-35.[address] [facility] Comment on above: Performed By: #### L ACT #### [facility] [address] [place] [address] Dr. Carole Carvalho MCV (RBC) [Entitic vol] 101.6 fL Critically high 80.0-[address] [facility] Comment on above: Performed By: #### L ACT #### [facility] [address] [address] [address] Carole Carvalho MONO # 1.1 103/ul Critically high 0.3-0.8 [facility] Comment on above: Performed By: #### L ACT #### [facility] [address] [address] [address] Carole Carvalho Monocytes/100 WBC (Bld) 12.7 % Critically high 1.7-12. [address] [facility] Comment on above: Performed By: #### L ACT #### [facility] [address] [place] [address] Dr. Carole Carvalho NEUT # 6.6 103/ul Critically high 1.4-6.5 [facility] Comment on above: Performed By: #### L ACT #### [facility] [address] [place] [address] Dr. Carole Carvalho Neutrophils/100 WBC (Bld) 74.6 % Normal 43.0-75.[address] [facility] Comment on above: Performed By: #### L ACT #### [facility] [address] [place] [address] Dr. Carole Carvalho Platelet mean volume (Bld) [ Entitic vol] 11.1 fL Normal 9.5-13.5 [facility] Comment on above: Performed By: #### L ACT #### [facility] [address] [place] [address] Dr. Carole Carvalho PLT 175 103/ul Normal 150-450 [facility] Comment on above: Performed By: #### L ACT #### [facility] [address] [place], [place] [id number] Dr. Carole Carvalho RBC 3.75 106/ul Critically low 4.70-6.10 [facility] Comment on above: Performed By: #### L ACT #### [facility] [address] [place] [address] Dr. Carole Carvalho WBC 8.9 103/ul Normal 4.0-11.0 [facility] Comment on above: Performed By: #### L ACT #### [facility] [address] [address] [address] Carole Carvalho LIPID PROFILEon 07-18-2021 CHOL-HDL RATIO NORM SEE BELOW Normal [facility] Comment on above: Result Comment: 3.3 - 4.4 LOW RISK 4.4 - 7.1 AVERAGE RISK 7.1 - 11.0 MODERATE RISK >11.0 HIGH RISK Performed By: #### M G, BMP #### [facility] [address] [address] [address] Carole Carvalho Cholesterol [Mass/Vol] 111 mg/dL Normal <=200 [facility] Comment on above: Performed By: #### M G, BMP #### [facility] [address] [address] [address] Carole Carvalho Cholesterol in HDL [Mass/Vol] 37 mg/dL Critically low 40 -60 [facility] Comment on above: Performed By: #### M G, BMP #### [facility] [address] [address] [address] Carole Carvalho Cholesterol in LDL [Mass/Vol] 63.0 mg/dL Normal [facility] Comment on above: Performed By: #### M G, BMP #### [facility] [address] [address] [address] Carole Carvalho Cholesterol.total/Cholestero l in HDL [Mass ratio] 3.0 {ratio} Normal [facility] Comment on above: Performed By: #### M G, BMP #### [facility] [address] [address] [address] Carole Carvalho HDL NORMAL > or = 60 mg/dl - LO W CARDIOVASCULAR RISK <40 mg/dl - HIGH CARDIOVASCULAR RISK Normal [facility] Comment on above: Performed By: #### M G, BMP #### [facility] [address] [address] [address] Carole Carvalho LDL CALC NORMAL SEE BELOW Normal [facility] Comment on above: Result Comment: <100 mg/dl OPTIMAL 100 - 129 mg/dl NEAR OR ABOVE OPTIMAL 130 - 159 mg/dl BORDERLINE HIGH 160 - 189 mg/dl HIGH >190 mg/dl VERY HIGH Performed By: #### Holly Gómez, BMP #### [facility] [address] [place] [address] Dr. Carole Carvalho Triglyceride [Mass/Vol] 55 mg/dL Normal <=150 [facility] Comment on above: Performed By: #### Holly G, BMP #### [facility] [address] [place] [address] Dr. Carole Carvalho VLDL CALC 11.0 mg/dL Normal [facility] Comment on above: Performed By: #### Holly Gómez, BMP #### [facility] [address] [place] [address] Dr. Carole Carvalho MAGNESIUMon 07-18-2021 Magnesium [Mass/Vol] 2.1 mg/dL Normal 1.8-2.4 [facility] Comment on above: Performed By: #### Holly Gómez, BMP #### [facility] [address] [place] [address] Dr. Carole Carvalho PROF CHEM 8 (BAS METB)on Anion gap [Moles/Vol] 2.6 mmol/L Normal [facility] Comment on above: Performed By: #### Holly Gómez, BMP #### [facility] [address] [place] [address] Dr. Carole Carvalho Calcium [Mass/Vol] 7.8 mg/dL Critically low 8.5-10.1 [facility] Comment on above: Performed By: #### Holly Gómez, BMP #### [facility] [address] [place] [address] Dr. Carole Carvalho Chloride [Moles/Vol] 93 mmol/L Critically low 98-107 [facility] Comment on above: Performed By: #### Holly Gómez, BMP #### [facility] [address] [place] [address] Dr. Carole Carvalho CO2 [Moles/Vol] 46.0 mmol/L Critically high 21.0-32.0 [facility] Comment on above: Performed By: #### M G, BMP #### [facility] [address] [address] [address] Carole Carvalho Creatinine [Mass/Vol] 0.65 mg/dL Critically low 0.70-1.[address] [facility] Comment on above: Performed By: #### M G, BMP #### [facility] [address] [address] [address] Carole Carvalho EGFR-AF BERMUDIAN >60 Normal >=60 [facility] Comment on above: Performed By: #### M G, BMP #### [facility] [address] [address] [address] Carole Carvalho EGFR-NON AF BERMUDIAN >60 Normal >=60 [facility] Comment on above: Performed By: #### M G, BMP #### [facility] [address] [place] [address] Dr. Carole Carvalho Glucose [Mass/Vol] 92 mg/dL Normal 74-106 [facility] Comment on above: Performed By: #### M G, BMP #### [facility] [address] [place] [address] Dr. Carole Carvalho Potassium [Moles/Vol] 3.6 mmol/L Normal 3.5-5.1 [facility] Comment on above: Performed By: #### M G, BMP #### [facility] [address] [place] [address] Dr. Carole Carvalho Sodium [Moles/Vol] 138 mmol/L Normal 136-145 [facility] Comment on above: Performed By: #### M G, BMP #### [facility] [address] [place] [address] Dr. Carole Carvalho Urea nitrogen [Mass/Vol] 21.0 mg/dL Critically high 7.0-[address] [facility] Comment on above: Performed By: #### M G, BMP #### [facility] [address] [place] [address] Dr. Carole Carvalho Urea nitrogen/Creatinine [Mass ratio] 32.3 mg/mg Normal [facility] Comment on above: Performed By: #### M G, BMP #### [facility] [address] [place] [address] Dr. Carole Carvalho BLOOD GASES BTYon 07-17-2021 02 MODE BIPAP Normal [facility] Comment on above: Performed By: #### M G, BMP #### [facility] [address] [place] [address] Dr. Carole Carvalho ALLENS TEST Positive Normal The [facility] Comment on above: Performed By: #### M G, BMP #### [facility] [address] [place] [address] Dr. Carole Carvalho Base excess Calc (Bld) [Moles/Vol] 22.4 mmol/L Critically high -2.0-2.0 [facility] Comment on above: Performed By: #### M G, BMP #### [facility] [address] [place] [address] Dr. Carole Carvalho BIPAP PRESSURE 18/8 Normal [facility] Comment on above: Performed By: #### M G, BMP #### [facility] [address] [place] [address] Dr. Carole Carvalho CO2 [Moles/Vol] 95.2 mmol/L Critically high 23.0-28.[address] [facility] Comment on above: Performed By: #### M G, BMP #### [facility] [address] [place] [address] Dr. Carole Carvalho CPAP Normal [facility] Comment on above: Performed By: #### M G, BMP #### [facility] [address] [place] [address] Dr. Carole Carvalho FIO2 40.00 % Normal [facility] Comment on above: Performed By: #### M G, BMP #### [facility] [address] [place] [address] Dr. Carole Carvalho HCO3 (Bld) [Moles/Vol] 42.7 mmol/L Critically high 22.0-[address] [facility] Comment on above: Performed By: #### M G, BMP #### [facility] [address] [place] [address] Dr. Carole Carvalho LPM Normal [facility] Comment on above: Performed By: #### M G, BMP #### [facility] [address] [address] [address] Carole Carvalho MINUTE VOLUME Normal [facility] Comment on above: Performed By: #### M G, BMP #### [facility] [address] [place] [address] Dr. Carole Carvalho Oxygen (Bld) [Partial pressure] 106.0 mm[Hg] Critically high 80.0-100.0 [facility] Comment on above: Performed By: #### M G, BMP #### [facility] [address] [place] [address] Dr. Carole Carvalho Oxygen saturation in Blood 98.9 % Normal 95.0-100. 0 [facility] Comment on above: Performed By: #### M G, BMP #### [facility] [address] [place] [address] Dr. Carole Carvalho PCO2 74.9 mmHg Critically high 35.0-45.0 [facility] Comment on above: Performed By: #### M G, BMP #### [facility] [address] [place] [address] Dr. Carole Carvalho PEEP Normal [facility] Comment on above: Performed By: #### M G, BMP #### [facility] [address] [place] [address] Dr. Carole Carvalho pH (Bld) 7.406 [pH] Normal 7.350-7.450 [facility] Comment on above: Performed By: #### M G, BMP #### [facility] [address] [place] [address] Dr. Carole Carvalho PIP Normal [facility] Comment on above: Performed By: #### M G, BMP #### [facility] [address] [place] [address] Dr. Carole Carvalho PS Normal [facility] Comment on above: Performed By: #### M G, BMP #### [facility] [address] [place] [address] Dr. Carole Carvalho PUNCTURE SITE RR Normal [facility] Comment on above: Performed By: #### M G, BMP #### [facility] [address] [place] [address] Dr. Carole Carvalho RATE Normal [facility] Comment on above: Performed By: #### M G, BMP #### [facility] [address] [place] [address] Dr. Carole Carvalho VENT MODE Normal [facility] Comment on above: Performed By: #### M G, BMP #### [facility] [address] [place] [address] Dr. Carole Carvalho [place] Normal [facility] Comment on above: Performed By: #### M G, BMP #### [facility] [address] [place] [address] Dr. Carole Carvalho 02 MODE BIPAP Normal [facility] Comment on above: Performed By: #### M G, BMP #### [facility] [address] [place] [address] Dr. Carole MATA TEST Positive Normal [facility] Comment on above: Performed By: #### M G, BMP #### [facility] [address] [place] [address] Dr. Carole Carvalho Base excess Calc (Bld) [Moles/Vol] 18.2 mmol/L Critically high -2.0-2.0 [facility] Comment on above: Performed By: #### M G, BMP #### [facility] [address] [place] [address] Dr. Carole Carvalho BIPAP PRESSURE Normal [facility] Comment on above: Performed By: #### M G, BMP #### [facility] [address] [place] [address] Dr. Carole Carvalho CO2 [Moles/Vol] 91.2 mmol/L Critically high 23.0-28.[address] [facility] Comment on above: Performed By: #### M G, BMP #### [facility] [address] [place] [address] Dr. Carole Carvalho CPAP Normal [facility] Comment on above: Performed By: #### M G, BMP #### [facility] [address] [address] [address] Carole Carvalho FIO2 30.00 % Normal [facility] Comment on above: Performed By: #### M G, BMP #### [facility] [address] [address] [address] Carole Carvalho HCO3 (Bld) [Moles/Vol] 38.2 mmol/L Critically high 22.0-26 .0 [facility] Comment on above: Performed By: #### M G, BMP #### [facility] [address] [place] [address] Dr. Carole Carvalho LPM Normal [facility] Comment on above: Performed By: #### M G, BMP #### [facility] [address] [place] [address] Dr. Carole Carvalho MINUTE VOLUME Normal [facility] Comment on above: Performed By: #### M G, BMP #### [facility] [address] [place] [address] Dr. Carole Carvalho Oxygen (Bld) [Partial pressure] 58.3 mm[Hg] Critically low 80.0-100.0 [facility] Comment on above: Performed By: #### M G, BMP #### [facility] [address] [place] [address] Dr. Carole Carvalho Oxygen saturation in Blood 89.7 % Critically low 95.0- 100.[address] [facility] Comment on above: Performed By: #### M G, BMP #### [facility] [address] [place] [address] Dr. Carole Carvalho PCO2 84.0 mmHg Critically high 35.0-45.0 [facility] Comment on above: Performed By: #### M G, BMP #### [facility] [address] [place] [address] Dr. Carole Carvalho PEEP Normal [facility] Comment on above: Performed By: #### M G, BMP #### [facility] [address] [place] [address] Dr. Carole Carvalho pH (Bld) 7.329 [pH] Critically low 7.350-7.450 [facility] Comment on above: Performed By: #### M G, BMP #### [facility] [address] [place] [address] Dr. Carole Carvalho PIP Normal [facility] Comment on above: Performed By: #### M G, BMP #### [facility] [address] [place] [address] Dr. Carole Carvalho PS Normal [facility] Comment on above: Performed By: #### M G, BMP #### [facility] [address] [place] [address] Dr. Carole Carvalho PUNCTURE SITE LR Normal [facility] Comment on above: Performed By: #### M G, BMP #### [facility] [address] [place] [address] Dr. Carole Carvalho RATE Normal [facility] Comment on above: Performed By: #### M G, BMP #### [facility] [address] [place] [address] Dr. Carole Carvalho VENT MODE Normal [facility] Comment on above: Performed By: #### M G, BMP #### [facility] [address] [place] [address] Dr. Carole Carvalho [place] Normal [facility] Comment on above: Performed By: #### M G, BMP #### [facility] [address] [place] [address] Dr. Carole Carvalho 02 MODE VENTURI MASK Normal [facility] Comment on above: Performed By: #### M G, BMP #### [facility] [address] [place] [address] Dr. Carole Carvalho ALLENS TEST Positive Normal [facility] Comment on above: Performed By: #### M G, BMP #### [facility] [address] [place] [address] Dr. Carole Carvalho Base excess Calc (Bld) [Moles/Vol] 16.9 mmol/L Critically high -2.0-2.0 [facility] Comment on above: Performed By: #### M G, BMP #### [facility] [address] [place] [address] Dr. Carole Carvalho BIPAP PRESSURE Normal [facility] Comment on above: Performed By: #### M G, BMP #### [facility] [address] [place] [address] Dr. Carole Carvalho CO2 [Moles/Vol] 89.8 mmol/L Critically high 23.0-28.0 [facility] Comment on above: Performed By: #### M G, BMP #### [facility] [address] [place] [address] Dr. Carole Carvalho CPAP Normal [facility] Comment on above: Performed By: #### M G, BMP #### [facility] [address] [place] [address] Dr. Carole Carvalho FIO2 45.00 % Normal [facility] Comment on above: Performed By: #### M G, BMP #### [facility] [address] [place] [address] Dr. Carole Carvalho HCO3 (Bld) [Moles/Vol] 36.9 mmol/L Critically high 22.0-26 .0 [facility] Comment on above: Performed By: #### M G, BMP #### [facility] [address] [place] [address] Dr. Carole Carvalho LPM 12 Normal [facility] Comment on above: Performed By: #### M G, BMP #### [facility] [address] [place] [address] Dr. Carole Carvalho MINUTE VOLUME Normal [facility] Comment on above: Performed By: #### M G, BMP #### [facility] [address] [place] [address] Dr. Carole Carvalho Oxygen (Bld) [Partial pressure] 81.4 mm[Hg] Normal 80. 0-100.[address] [facility] Comment on above: Performed By: #### M G, BMP #### [facility] [address] [place] [address] Dr. Carole Carvalho Oxygen saturation in Blood 95.8 % Normal 95.0-100. 0 [facility] Comment on above: Performed By: #### M G, BMP #### [facility] [address] [place] [address] Dr. Carole Carvalho PCO2 88.1 mmHg Critically high 35.0-45.0 [facility] Comment on above: Performed By: #### M G, BMP #### [facility] [address] [place] [address] Dr. Carole Carvalho PEEP Normal [facility] Comment on above: Performed By: #### M G, BMP #### [facility] [address] [place] [address] Dr. Carole Carvalho pH (Bld) 7.300 [pH] Critically low 7.350-7.450 [facility] Comment on above: Performed By: #### M G, BMP #### [facility] [address] [place] [address] Dr. Carole Carvalho PIP Normal [facility] Comment on above: Performed By: #### M G, BMP #### [facility] [address] [place] [address] Dr. Carole Carvalho PS Normal [facility] Comment on above: Performed By: #### M G, BMP #### [facility] [address] [place] [address] Dr. Carole Carvalho PUNCTURE SITE LR Normal [facility] Comment on above: Performed By: #### M G, BMP #### [facility] [address] [place] [address] Dr. Carole Carvalho RATE Normal [facility] Comment on above: Performed By: #### M G, BMP #### [facility] [address] [place] [address] Dr. Carole Carvalho VENT MODE Normal [facility] Comment on above: Performed By: #### M G, BMP #### [facility] [address] [place] [address] Dr. Carole Carvalho [place] Normal [facility] Comment on above: Performed By: #### M G, BMP #### [facility] [address] [place] [address] Dr. Carole Carvalho BNPon 07-17-2021 Natriuretic peptide B (Bld) [Mass/Vol] 2579.0 pg/mL Critically high <=900.0 [facility] Comment on above: Result Comment: repe ated Performed By: #### B CONTACT CLERK #### [facility] [address] [place] [address] Dr. Carole Carvalho CBC AUTO DIFFon 07-17-2021 BASO # 0.0 103/ul Normal 0.0-0.1 [facility] Comment on above: Performed By: #### L ACT #### [facility] [address] [place] [address] Dr. Carole Carvalho Basophils/100 WBC (Bld) 0.3 % Normal 0.2-2.0 [facility] Comment on above: Performed By: #### L ACT #### [facility] [address] [place] [address] Dr. Carole Carvalho EO # 0.0 103/ul Normal 0.0-0.7 [facility] Comment on above: Performed By: #### L ACT #### [facility] [address] [place] [address] Dr. Carole Carvalho Eosinophils/100 WBC (Bld) 0.1 % Critically low 0.9-7. 0 [facility] Comment on above: Performed By: #### L ACT #### [facility] [address] [place] [address] Dr. Carole Carvalho Erythrocyte distribution wid th (RBC) [Ratio] 14.2 % Normal 11.0-15.0 [facility] [facility] Comment on above: Performed By: #### L ACT #### [facility] [address] [place] [address] Dr. Carole Carvalho Hematocrit (Bld) [Volume fraction] 38.0 % Critically low 42.0-54.0 [facility] Comment on above: Performed By: #### L ACT #### [facility] [address] [place] [address] Dr. Carole Carvalho Hemoglobin (Bld) [Mass/Vol] 11.4 g/dL Critically low 14.0 -18.0 [facility] Comment on above: Performed By: #### L ACT #### [facility] [address] [place] [address] Dr. Carole Carvalho IG # 0.04 10e3/ul Critically high 0.00-0.03 [facility] Comment on above: Performed By: #### L ACT #### [facility] [address] [place] [address] Dr. Carole Carvalho IG % 0.4 % Normal 0.0-0.5 [facility] Comment on above: Performed By: #### L ACT #### [facility] [address] [place] [address] Dr. Carole Carvalho LYMPH # 1.4 103/ul Normal 1.2-3.8 The [facility] Comment on above: Performed By: #### L ACT #### [facility] [address] [place] [address] Dr. Carole Carvalho Lymphocytes/100 WBC (Bld) 14.5 % Critically low 20.5-6 0.0 [facility] Comment on above: Performed By: #### L ACT #### [facility] [address] [place] [address] Dr. Carole Carvalho MANUAL DIFF REQ NO Normal [facility] Comment on above: Performed By: #### L ACT #### [facility] [address] [place] [address] Dr. Carole Carvalho MCH (RBC) [Entitic mass] 31.1 pg Normal 25.9-34.0 [facility] Comment on above: Performed By: #### L ACT #### [facility] [address] [place] [address] Dr. Carole Carvalho MCHC (RBC) [Mass/Vol] 30.0 g/dL Normal 29.9-35.[address] [facility] Comment on above: Performed By: #### L ACT #### [facility] [address] [address] [address] Carole Carvalho MCV (RBC) [Entitic vol] 103.5 fL Critically high 80.0-[address] [facility] Comment on above: Performed By: #### L ACT #### [facility] [address] [address] [address] Carole Carvalho MONO # 1.3 103/ul Critically high 0.3-0.8 [facility] Comment on above: Performed By: #### L ACT #### [facility] [address] [address] [address] Carole Carvalho Monocytes/100 WBC (Bld) 13.4 % Critically high 1.7-12. 0 [facility] Comment on above: Performed By: #### L ACT #### [facility] [address] [address] [address] Carole Carvalho NEUT # 7.0 103/ul Critically high 1.4-6.5 [facility] Comment on above: Performed By: #### L ACT #### [facility] [address] [address] [address] Carole Carvalho Neutrophils/100 WBC (Bld) 71.3 % Normal 43.0-75.0 [facility] Comment on above: Performed By: #### L ACT #### [facility] [address] [address] [address] Carole Carvalho Platelet mean volume (Bld) [ Entitic vol] 11.3 fL Normal 9.5-13.5 [facility] Comment on above: Performed By: #### L ACT #### [facility] [address] [address] [address] Carole Carvalho PLT 169 103/ul Normal 150-450 [facility] Comment on above: Performed By: #### L ACT #### [facility] [address] [address] [address] Carole Carvalho RBC 3.67 106/ul Critically low 4.70-6.10 [facility] Comment on above: Performed By: #### L ACT #### [facility] [address] [place], [place] [address] Dr. Carole Carvalho WBC 9.9 103/ul Normal 4.0-11.0 [facility] Comment on above: Performed By: #### L ACT #### [facility] [address] [place], [place] [address] Dr. Carole Carvalho CTA CHEST WO W CONon 022 CTA CHEST WO W CON EXAMINATION: CTA HANANE ST WO W CON HISTORY: SHORTNESS OF BREATH , low oxygen saturation rate, bilateral leg swelling COMPARISON: No relevant comparison available. TECHNIQUE: Multi-planar CT images were created with IV contrast. Axial, Coronal, and Sagittal images. Dose reduction techniques were achieved by using automated exposure control and/or adjustment of mA and/or kV according to patient size and/or use of iterative reconstruction technique. 3-D reconstruction was performed on a separate workstation. FINDINGS: VASCULATURE: No pulmonary embolism or abnormal opacity. LUNGS: Moderate emphysematous changes. 1.1 cm round circumscribed nodule within right lower lobe superior segment. 2 adjacent densely calcified nodules within left lower lobe superior segment consistent with granulomas. PLEURA: Bilateral pleural effusions, 1.7 cm in thickness on right, 0.7 cm on left. JUSTINE: Calcified lymph nodes. MEDIASTINUM: No mass or adenopathy. CARDIAC: No enlargement, pericardial effusion, or pericardial thickening. AORTA: No aneurysm or dissection. CHEST WALL: No mass or axillary adenopathy. BONES: No bone lesion or fracture. LIMITED ABDOMEN: No suspicious findings. Limited images of the upper abdomen. OTHER: Negative. IMPRESSION: 1. No pulmonary embolism. 2. Moderate emphysematous changes. 3. Small bilateral pleural effusions and small amount of passive atelectasis. No convincing infiltrates or findings to suggest pneumonia. 4. Nonspecific 1.1 cm nodule within right lower lobe superior segment. There is evidence of chronic granulomatous disease in this may represent a noncalcified granuloma, but follow-up CT imaging of the chest in 3, 6, 12, 24 months is recommended to establish stability of this nodule and to exclude malignancy. Alternatively, PET imaging could be performed at this time. Electronically authenticated by: KATE BUSH Date: 2021-07-17 08:34 Normal [facility] ECHOCARDIO M/2D COMPLETEon 0 07-17-2021 ECHOCARDIO M/2D COMPLETE Patient: JAIME BLACK Exam Date: 07/17/2021 : 1955 Gender:M Ordering : RastaMtat ALLEN . Admission #: [id number] Family : Order #: [id number] CLICK HERE TO VIEW EXAM ECHOCARDIOGRAM REPORT PROCEDURE: CARDIO PULMONARY ECHOCARDIO M/2D COMP INDICATIONS: Elevated BNP, new atrial fibrillation (resolved) COMPARISON: None. DESCRIPTION: COMPLETE ECHOCARDIOGRAM Real-time transthoracic echocardiography with 2D, M-mode, spectral and color flow Doppler performed. QUALITY: Unable to obtain apical images due to patients condition. LEFT VENTRICLE: Normal chamber size. Global LV systolic function is normal. Abnormal septal motion due to RV pressure or volume overload. LV EF: Normal left ventricular ejection fraction, (60%). DIASTOLIC: ATRIAL SEPTUM: Visually appears intact. LEFT ATRIUM: Normal chamber size. RIGHT ATRIUM: Mild dilatation. RIGHT VENTRICLE: Moderate dilatation. Moderately reduced systolic function. TRICUSPID VALVE: Normal mobility and thickness. No stenosis with mild regurgitation. Doppler studies reveal moderately (45-60) elevated right sided pressures. RVSP 53 mmHg MITRAL VALVE: Normal mobility and thickness. No evidence of mitral valve stenosis. There is no mitral annular calcification. No mitral regurgitation. AORTIC VALVE: Normal trileaflet appearance. No visible sclerosis. Normal leaflet mobility. No evidence of aortic valve stenosis. No aortic regurgitation. AORTIC ROOT: Normal diameter and appearance. PULMONIC VALVE: Normal thickness and mobility. No stenosis. No regurgitation. PERICARDIUM: No evidence of pericardial effusion. IVC: IVC is dilated (2.30 cm) with no collapse. PLEURA: CONCLUSION: 1. Left ventricular systolic function is normal. LVEF is 60%. 2. Moderately dilated right ventricle with moderately reduced systolic function. 3. Moderately elevated right-sided pressures. RVSP is 53 mmHg. 4. Mild tricuspid regurgitation. 5. No pericardial effusion. Before Adult Echocardiography Procedure Report Left Ventricle LVEDD (3.7 - 5.6 cm): 4.46 cm LVESD (2.2 - 4.0 cm): 2.89 cm LVIVS thickness (0.6 - 1.2 cm): 8.49 mm LVPW thickness (0.5 - 1.0 cm): 7.71 mm Left Ventricular Ejection Fraction: 60 % Left Atrium Left Atrium Systolic Dimension: 2.80 cm Mitral Valve Right Ventricle Aorta AO Root Diam: 3.40 cm Aortic Valve Tricuspid Valve Peak Velocity (Regurgitant Flow): 257.00 cm/s Pulmonic Valve Peak Velocity: 89.20 cm/s Peak Gradient: 3 mm[Hg] Right Atrium Dictated by: Bishop Sheridan M.D. on 07/17/2021 at 13:26 Approved by: Bishop Sheridan M.D. on 07/17/2021 at 13:29 Normal [facility] MAGNESIUMon 07-17-2021 Magnesium [Mass/Vol] 2.3 mg/dL Normal 1.8-2.4 [facility] Comment on above: Performed By: #### Holly Gómez, BMP #### [facility] [address] [place] [address] Dr. Carole Carvalho PROF CHEM 8 (BAS METB)on Anion gap [Moles/Vol] 3.5 mmol/L Normal [facility] Comment on above: Performed By: #### Holly Gómez, BMP #### [facility] [address] [address] [address] Carole Carvalho Calcium [Mass/Vol] 7.7 mg/dL Critically low 8.5-10.1 [facility] Comment on above: Performed By: #### Holly Gómez, BMP #### [facility] [address] [address] [address] Carole Carvalho Chloride [Moles/Vol] 96 mmol/L Critically low 98-107 [facility] Comment on above: Performed By: #### Holly Gómez, BMP #### [facility] [address] [address] [address] Carole Carvalho CO2 [Moles/Vol] 43.4 mmol/L Critically high 21.0-32.0 [facility] Comment on above: Performed By: #### Holly Gómez, BMP #### [facility] [address] [address] [address] Carole Carvalho Creatinine [Mass/Vol] 0.76 mg/dL Normal 0.70-1.30 [facility] Comment on above: Performed By: #### M G, BMP #### [facility] [address] [address] [address] Carole Carvalho EGFR-AF BERMUDIAN >60 Normal >=60 [facility] Comment on above: Performed By: #### M G, BMP #### [facility] [address] [address] [address] Carole Carvalho EGFR-NON AF BERMUDIAN >60 Normal >=[address] [facility] Comment on above: Performed By: #### M G, BMP #### [facility] [address] [address] [address] Carole Carvalho Glucose [Mass/Vol] 85 mg/dL Normal 74-106 [facility] Comment on above: Performed By: #### M G, BMP #### [facility] [address] [address] [address] Carole Carvalho Potassium [Moles/Vol] 4.9 mmol/L Normal 3.5-5.1 [facility] Comment on above: Performed By: #### M G, BMP #### [facility] [address] [address] [address] Carole Carvalho Sodium [Moles/Vol] 138 mmol/L Normal 136-145 [facility] Comment on above: Performed By: #### M G, BMP #### [facility] [address] [address] [address] Carole Carvalho Urea nitrogen [Mass/Vol] 27.0 mg/dL Critically high 7.0-18 .0 [facility] Comment on above: Performed By: #### M G, BMP #### [facility] [address] [address] [address] Carole Carvalho Urea nitrogen/Creatinine [Mass ratio] 35.5 mg/mg Normal [facility] Comment on above: Performed By: #### M G, BMP #### [facility] [address] [address] [address] Carole Carvalho TROPONIN, HIGH SENSITIVITYon 07-17-2021 HSTROP 23.9 pg/mL Normal 4.0-76.1 [facility] Comment on above: Result Comment: CUT- OFF POINTS HAVE BEEN ESTABLISHED BASED ON THE FOURTH UNIVERSAL DEFINITIONS OF MYOCARDIAL INFARCTION. THE UPPER REFERENCE LIMIT (URL) OF TROPONIN, DEFINED THE 99TH PERCENTILE OF cTnI DISTRIBUTION IN A REFERENCE POPULATION, HAS BEEN CONFIRMED THE DECISION THRESHOLD FOR ID DIAGNOSIS. Performed By: #### M G, BMP #### [facility] [address] [place] [address] Dr. Carole Carvalho BNPon 07-16-2021 Natriuretic peptide B (Bld) [Mass/Vol] 6272.0 pg/mL Critically high <=900.0 [facility] Comment on above: Result Comment: test repeated critical value verified Performed By: #### B CONTACT CLERK #### [facility] [address] [place] [address] Dr. Carole Carvalho CBC AUTO DIFFon 07-16-2021 BASO # 0.0 103/ul Normal 0.0-0.1 [facility] Comment on above: Performed By: #### C BC #### [facility] [address] [place] [address] Dr. Carole Carvalho Basophils/100 WBC (Bld) 0.2 % Normal 0.2-2.0 [facility] Comment on above: Performed By: #### C BC #### [facility] [address] [place] [address] Dr. Carole Carvalho EO # 0.0 103/ul Normal 0.0-0.7 [facility] Comment on above: Performed By: #### C BC #### [facility] [address] [place] [address] Dr. Carole Carvalho Eosinophils/100 WBC (Bld) 0.0 % Critically low 0.9-7. [address] [facility] Comment on above: Performed By: #### C BC #### [facility] [address] [place] [address] Dr. Carole Carvalho Erythrocyte distribution wid th (RBC) [Ratio] 14.2 % Normal 11.0-15.0 [facility] Comment on above: Performed By: #### C BC #### [facility] [address] [place] [address] Dr. Carole Carvalho Hematocrit (Bld) [Volume fraction] 43.5 % Normal 4 2.0-54.0 [facility] Comment on above: Performed By: #### C BC #### [facility] [address] [place] [address] Dr. Carole Carvalho Hemoglobin (Bld) [Mass/Vol] 13.5 g/dL Critically low 14.0 -18.0 [facility] Comment on above: Performed By: #### C BC #### [facility] [address] [place] [address] Dr. Carole Carvalho IG # 0.04 10e3/ul Critically high 0.00-0.03 [facility] Comment on above: Performed By: #### C BC #### [facility] [address] [place] [address] Dr. Carole Carvalho IG % 0.4 % Normal 0.0-0.5 [facility] Comment on above: Performed By: #### C BC #### [facility] [address] [place] [address] Dr. Carole Carvalho LYMPH # 1.1 103/ul Critically low 1.2-3.8 [facility] Comment on above: Performed By: #### C BC #### [facility] [address] [place] [address] Dr. Carole Carvalho Lymphocytes/100 WBC (Bld) 11.0 % Critically low 20.5-6 0.0 [facility] Comment on above: Performed By: #### C BC #### [facility] [address] [place] [address] Dr. Carole Carvalho MANUAL DIFF REQ NO Normal [facility] Comment on above: Performed By: #### C BC #### [facility] [address] [place] [address] Dr. Carole Carvalho MCH (RBC) [Entitic mass] 31.5 pg Normal 25.9-34.0 [facility] Comment on above: Performed By: #### C BC #### [facility] [address] [place] [address] Dr. Carole Carvalho MCHC (RBC) [Mass/Vol] 31.0 g/dL Normal 29.9-35.2 [facility] Comment on above: Performed By: #### C BC #### [facility] [address] [address] [address] Carole Carvalho MCV (RBC) [Entitic vol] 101.4 fL Critically high 80.0-[address] [facility] Comment on above: Performed By: #### C BC #### [facility] [address] [place] [address] Dr. Carole Carvalho MONO # 1.2 103/ul Critically high 0.3-0.8 [facility] Comment on above: Performed By: #### C BC #### [facility] [address] [place] [address] Dr. Carole Carvalho Monocytes/100 WBC (Bld) 11.6 % Normal 1.7-12.0 [facility] Comment on above: Performed By: #### C BC #### [facility] [address] [place] [address] Dr. Carole Carvalho NEUT # 8.0 103/ul Critically high 1.4-6.5 [facility] Comment on above: Performed By: #### C BC #### [facility] [address] [place] [address] Dr. Carole Carvalho Neutrophils/100 WBC (Bld) 76.8 % Critically high 43.0- 75.[address] [facility] Comment on above: Performed By: #### C BC #### [facility] [address] [place] [address] Dr. Carole Carvalho Platelet mean volume (Bld) [ Entitic vol] 11.5 fL Normal 9.5-13.5 [facility] Comment on above: Performed By: #### C BC #### [facility] [address] [place] [address] Dr. Carole Carvalho PLT 221 103/ul Normal 150-450 [facility] Comment on above: Performed By: #### C BC #### [facility] [address] [address] [address] Carole Carvalho RBC 4.29 106/ul Critically low 4.70-6.10 [facility] Comment on above: Performed By: #### C BC #### [facility] [address] [address] [address] Carole Carvalho WBC 10.4 103/ul Normal 4.0-11.[address] [facility] Comment on above: Performed By: #### C BC #### [facility] [address] [place] [address] Dr. Carole Carvalho Covid-19 PCR (CVDTBH)on 06-28 SARS-CoV-2 (COVID-19) RNA [place]+probe Ql (Unsp spec) Not detected Normal NOT DETECTED [facility] Comment on above: Result Comment: When diagnostic testing is negative, the possibility of a false negative should be considered in the context of a patient's recent exposures and the presence of clinical signs and symptoms consistent with SARS-CoV-2. This test is not yet approved or cleared by the [place] Food and Drug Administration (FDA). This test was developed by [employer], [place], [place]. The performance characteristics of this test were validated by The [facility]. The results are not intended to be used as the sole means for clinical diagnosis or patient management decisions. The [facility] is authorized under Clinical Laboratory Improvement Amendments (CLIA) to perform high- complexity testing. This test is not yet approved or cleared by the [place] FDA. When there are no FDA-approved or cleared tests available, and other criteria are met, FDA can make tests available under an emergency access mechanism called an Emergency Use Authorization (EUA). The EUA for this test is supported by the [employer] of Health and Human Service's declaration that circumstances exist to justify the emergency use of in vitro diagnostics for the detection and/or diagnosis of the virus that causes COVID-19. This EUA will remain in effect for the duration of the COVID-19 declaration justifying emergency of IVDs, unless it is terminated or revoked by the FDA (after which the test may no longer be used). Performed By: #### C VDTBH #### [facility] [address] [place] [address] Dr. Carole Carvalho MAGNESIUMon 07-16-2021 Magnesium [Mass/Vol] 2.4 mg/dL Normal 1.8-2.4 [facility] Comment on above: Performed By: #### M G #### [facility] [address] [place] [address] Dr. Carole Carvalho Magnesium [Mass/Vol] 2.4 mg/dL Normal 1.8-2.4 [facility] Comment on above: Performed By: #### B CONTACT CLERK #### [facility] [address] [place] [address] Dr. Carole Carvalho PROF 14(COMP METB)on 022 Albumin [Mass/Vol] 3.0 g/dL Critically low 3.4-5.[address] [facility] Comment on above: Performed By: #### B CONTACT CLERK #### [facility] [address] [place] [address] Dr. Carole Carvalho Albumin/Globulin [Mass ratio] 0.8 {ratio} Normal [facility] Comment on above: Performed By: #### B CONTACT CLERK #### [facility] [address] [place] [address] Dr. Carole Carvalho ALP [Catalytic activity/Vol] 141 U/L Critically high 46 -116 [facility] Comment on above: Performed By: #### B CONTACT CLERK #### [facility] [address] [place] [address] Dr. Carole Carvalho ALT [Catalytic activity/Vol] 54 U/L Normal 16-63 [facility] Comment on above: Performed By: #### B CONTACT CLERK #### [facility] [address] [place] [address] Dr. Carole Carvalho Anion gap [Moles/Vol] 4.7 mmol/L Normal [facility] Comment on above: Performed By: #### B CONTACT CLERK #### [facility] [address] [place] [address] Dr. Carole Carvalho AST [Catalytic activity/Vol] 29 U/L Normal 15-37 [facility] Comment on above: Performed By: #### B CONTACT CLERK #### [facility] [address] [place] [address] Dr. Carole Carvalho Bilirubin [Mass/Vol] 0.7 mg/dL Normal 0.2-1.0 [facility] Comment on above: Performed By: #### B CONTACT CLERK #### [facility] [address] [place] [address] Dr. Carole Carvalho Calcium [Mass/Vol] 7.9 mg/dL Critically low 8.5-10.1 [facility] Comment on above: Performed By: #### B CONTACT CLERK #### [facility] [address] [place] [address] Dr. Carole Carvalho Chloride [Moles/Vol] 96 mmol/L Critically low 98-107 [facility] Comment on above: Performed By: #### B CONTACT CLERK #### [facility] [address] [place] [address] Dr. Carole Carvalho CO2 [Moles/Vol] 37.4 mmol/L Critically high 21.0-32.0 [facility] Comment on above: Performed By: #### B CONTACT CLERK #### [facility] [address] [place] [address] Dr. Carole Carvalho Creatinine [Mass/Vol] 0.81 mg/dL Normal 0.70-1.30 [facility] Comment on above: Performed By: #### B CONTACT CLERK #### [facility] [address] [place] [address] Dr. Carole Carvalho EGFR-AF BERMUDIAN >60 Normal >=60 [facility] Comment on above: Performed By: #### B CONTACT CLERK #### [facility] [address] [place] [address] Dr. Carole Carvalho EGFR-NON AF BERMUDIAN >60 Normal >=60 [facility] Comment on above: Performed By: #### B CONTACT CLERK #### [facility] [address] [place] [address] Dr. Carole Carvalho Globulin (S) [Mass/Vol] 3.8 g/dL Normal T [facility] Comment on above: Performed By: #### B CONTACT CLERK #### [facility] [address] [place] [address] Dr. Carole Carvalho Glucose [Mass/Vol] 132 mg/dL Critically high 74-106 T [facility] Comment on above: Performed By: #### B CONTACT CLERK #### [facility] [address] [address] [address] Carole Carvalho Potassium [Moles/Vol] 5.1 mmol/L Normal 3.5-5.1 [facility] Comment on above: Performed By: #### B CONTACT CLERK #### [facility] [address] [address] [address] Carole Carvalho Protein [Mass/Vol] 6.8 g/dL Normal 6.4-8.2 [facility] Comment on above: Performed By: #### B CONTACT CLERK #### [facility] [address] [place] [address] Dr. Carole Carvalho Sodium [Moles/Vol] 133 mmol/L Critically low 136-145 [facility] Comment on above: Performed By: #### B CONTACT CLERK #### [facility] [address] [place] [address] Dr. Carole Carvalho Urea nitrogen [Mass/Vol] 36.0 mg/dL Critically high 7.0-18 .0 [facility] Comment on above: Performed By: #### B CONTACT CLERK #### [facility] [address] [place] [address] Dr. Carole Carvalho Urea nitrogen/Creatinine [Mass ratio] 44.4 mg/mg Normal [facility] Comment on above: Performed By: #### B CONTACT CLERK #### [facility] [address] [place] [address] Dr. Carole Carvalho TROPONIN, HIGH SENSITIVITYon 07-16-2021 HSTROP 25.3 pg/mL Normal 4.0-76.1 [facility] Comment on above: Result Comment: CUT- OFF POINTS HAVE BEEN ESTABLISHED BASED ON THE FOURTH UNIVERSAL DEFINITIONS OF MYOCARDIAL INFARCTION. THE UPPER REFERENCE LIMIT (URL) OF TROPONIN, DEFINED THE 99TH PERCENTILE OF cTnI DISTRIBUTION IN A REFERENCE POPULATION, HAS BEEN CONFIRMED THE DECISION THRESHOLD FOR ID DIAGNOSIS. Performed By: #### B CONTACT CLERK #### [facility] [address] [place] [address] Dr. Carole Carvalho TSHon 07-16-2021 TSH 2.343 uIU/mL Normal 0.358-3.740 [facility] Comment on above: Performed By: #### L ACT #### [facility] [address], [place] [address] Dr. Carole Carvalho TSH RANGE SEE BELOW Normal [facility] Comment on above: Result Comment: <0.3 4 UIU/ml HYPERTHYROID 0.34-5.60 UIU/ml EUTHYROID >5.60 UIU/ml HYPOTHYROID Performed By: #### L ACT #### [facility] [address] [place], [place] [address] Dr. Carole Carvalho XR CHEST 1 Von 07-16-2021 XR CHEST 1 V EXAMINATION: XR CHES T 1 V HISTORY: SHORTNESS OF BREATH , bilateral leg swelling COMPARISON: No relevant comparison available. FINDINGS: LUNGS: Hyperexpanded lungs without appreciable infiltrates or mass. VASCULATURE: No increased pulmonary vasculature. PLEURA: No pneumothorax, effusion, or pleural thickening. CARDIAC: No cardiomegaly or cardiac silhouette abnormality. MEDIASTINUM: No visible mass or adenopathy. BONES: No fracture or visible bone lesion. OTHER: Negative. IMPRESSION: 1. No acute cardiopulmonary process or findings to suggest pulmonary edema. Electronically authenticated by: KATE BUSH Date: 2021-07-16 13:55 Normal [facility] Vital Signs Date Time Vital Sign Value Performing Clinician Facility 11-10-2022 12:43-0400 Body height 172.72 cm No PCP None [facility] DO Work Phone: 11-10-2022 12:43-0400 Body mass index (BMI) [Ratio] 23.11 kg/m2 No PCP None [facility] DO Work Phone: 11-10-2022 12:43-0400 Body surface area Derived from formula 1.82 m2 No PCP None [facility] DO Work Phone: 11-10-2022 12:43-0400 Body weight 68.95 kg No PCP None [facility] DO Work Phone: 11-10-2022 12:43-0400 Diastolic blood pressure 58 mm[Hg] No PCP None [facility] DO Work Phone: 11-10-2022 12:43-0400 Heart rate 77 /min No PCP None [facility] DO Work Phone: 11-10-2022 12:43-0400 Systolic blood pressure 100 mm[Hg] No PCP None [facility] DO Work Phone: 10-25-2022 10:08-0400 Body height 172.72 cm No PCP None [facility] DO Work Phone: 10-25-2022 10:08-0400 Body mass index (BMI) [Ratio] 22.5 kg/m2 No PCP None [facility] DO Work Phone: 10-25-2022 10:08-0400 Body surface area Derived from formula 1.8 m2 No PCP None [facility] DO Work Phone: 10-25-2022 10:08-0400 Body weight 67.13 kg No PCP None [facility] DO Work Phone: 10-25-2022 10:08-0400 Diastolic blood pressure 84 mm[Hg] No PCP None [facility] DO Work Phone: 10-25-2022 10:08-0400 Heart rate 144 /min No PCP None [facility] DO Work Phone: 10-25-2022 10:08-0400 Systolic blood pressure 102 mm[Hg] No PCP None [facility] DO Work Phone: 09-14-2022 14:00-0400 Body weight 64.41 kg Imad Asaad Other [facility] [employer] Other 09-14-2022 14:00-0400 Diastolic blood pressure 58 mm[Hg] Imad Asaad Other [facility] [employer] Other 09-14-2022 14:00-0400 Systolic blood pressure 106 mm[Hg] Imad Asaad Other [facility] [employer] Other 07-11-2022 01:58-0400 Diastolic blood pressure 63 mm[Hg] MD Iris Holliday Work Phone: [facility] 07-11-2022 01:58-0400 Heart rate 62 /min MD Iris Holliday Work Phone: [facility] 07-11-2022 01:58-0400 Systolic blood pressure 142 mm[Hg] MD Iris Holliday Work Phone: [facility] 07-11-2022 01:56-0400 Inhaled oxygen flow rate 6 L/min MD Iris Holliday Work Phone: [facility] 07-11-2022 01:56-0400 Respiratory rate 18 /min MD Iris Holliday Work Phone: [facility] 07-11-2022 01:11-0400 Body height 172.72 cm MD Iris Holliday Work Phone: [facility] 07-11-2022 01:11-0400 Body temperature 98.6 [degF] MD Iris Holliday Work Phone: [facility] 07-11-2022 01:11-0400 Body weight 69.8 kg MD Iris Holliday Work Phone: [facility] 07-11-2022 00:50-0400 SaO2% (BldA) [Mass fraction] 96 % MD Iris Holliday Work Phone: [facility] Encounters Encounter Date Encounter Type Care Provider Facility Start: 01-25-2023 End: 01-25-2023 ambulatory Jaziel Gomez Facility:[facility] Start: 01-25-2023 End: 01-25-2023 ambulatory MD Shaikh Allen Work Phone: [facility] Work Phone: Start: 01-25-2023 End: 01-25-2023 Patient encounter procedure MD Shaikh Allen Work Phone: [facility] Start: 11-10-2022 Office outpatient visit 25 minutes No PCP None [facility] DO Work Phone: Start: 11-10-2022 ambulatory Judy Asif Facility:1 [id number] Start: 10-25-2022 Office outpatient visit 25 minutes No PCP None [facility] DO Work Phone: Start: 10-25-2022 Patient encounter procedure No PCP None [facility] DO Work Phone: Start: 10-25-2022 ambulatory Judy Asif Facility:1 [id number] Start: 10-18-2022 Chart Update No PCP None [facility] DO Work Phone: Start: 10-18-2022 End: 10-18-2022 ambulatory Shaikh Tiffany Facility:[id number] Start: 10-18-2022 End: 10-18-2022 ambulatory MD Shaikh Allen Work Phone: [facility] Work Phone: Start: 10-18-2022 End: 10-18-2022 Patient encounter procedure MD Shaikh Allen Work Phone: [facility] Start: 09-14-2022 End: 09-14-2022 ambulatory Imad Asaad Other [facility] [employer] Other Start: 09-14-2022 Office outpatient ne w 45 minutes Imad Asaad [facility] Start: 07-23-[address] Jzaiel gross [facility] Facility: Start: 07-19-[address] Jaziel Gomez II Facility:[id number] Start: 07-18-2022 ambulatory Judy Asif Facility:9 090 Start: 07-17-2022 ambulatory Judy Asif Facility:9 090 Start: 07-16-[address] Jaziel Gomez II Facility:[id number] Start: 07-15-2022 ambulatory Judy Asif Facility:9 090 Start: 07-14-2022 ambulatory Judy Asif Facility:9 090 Start: 07-13-2022 ambulatory Juyd Asif Facility:9 090 Start: 07-12-2022 ambulatory Judy Asif Facility:[facility] Start: 07-12-2022 ambulatory Judy Asif Facility:9 090 Start: 07-11-2022 ambulatory Judy Asif Facility:9 090 Start: 07-11-2022 ambulatory Judy Asif Facility:9 090 Start: 07-11-2022 End: 07-19-2022 Evaluation and management of inpatient PHYSICIAN WILI LACY Facility:[facility] Start: 07-10-2022 Evaluation and management of inpatient MD Iris Holliday Work Phone: [facility] Work Phone: Start: 12-09-2021 End: 12-09-2021 ambulatory QIANA MUNROE [facility] Start: 11-16-2021 End: 11-17-2021 ambulatory NIVIA WAGNER Facility:H1 Start: 11-05-2021 End: 11-06-[address] KATE BUSH Facility:H1 Start: 08-14-[address] BECKHAM LISTED REQUEST Facility:H1 Start: 07-16-2021 End: 07-27-2021 Evaluation and management of inpatient SHAIKH Rasta ALLEN Facility:H1 Procedures Date Procedure Procedure Detail Performing Clinician Start: 10-18-2022 Plain chest X-ray MD Eleazar Allen Work Phone: Start: 07-15-2022 Antibody screen Jaziel Gomez Comment on above: Order Comment: Trans fuse now? Y Number of units to transfuse now? 1 Result Comment: PERF ORMED BY: [facility] [address] [place] [address] PATHOLOGIST HEEL SEAT FILLER ABDIEL MTZ M.D. Start: 07-10-2022 Screening for occult blood in feces MD Iris Holliday Work Phone: Start: 07-17-2021 Assistance with Resp iratory Ventilation, Less than 24 Consecutive Hours, Continuous Positive Airway Pressure NONE LISTED REQUEST Excision of cyst No PCP None Hernia repair No PCP None Insertion of pacemak er pulse generator No PCP None Operation on rectum No PCP N one Percutaneous translu flores angioplasty of iliac artery No PCP None NEGATED: Highlighted row has not occurred! Total colonoscopy No PCP None Plan of Treatment Date Care Activity Detail Author Start: 05-04-2023 FUV, Provider: Jaziel Gomez, Status: Pen, Time: 2:50 PM FUV, Provider: Jaziel Gomez, Status: Pen, Time: 2:50 PM [facility] DO Work Phone: Start: 11-10-2022 FUV, Provider: Judy Polo, Status: Pen, Time: 12:30 PM FUV, Provider: Judy Polo, Status: Pen, Time: 12:30 PM [facility] Work Phone: Start: 10-25-2022 FUV, Provider: Judy Polo, Status: Pen, Time: 10:00 AM FUV, Provider: Judy Polo, Status: Pen, Time: 10:00 AM [facility] Work Phone: Start: 07-15-2022 Comprehensive metabolic 2000 panel - Serum or Plasma [facility] Start: 07-15-2022 [facility] Start: 07-14-2022 Comprehensive metabolic 2000 panel - Serum or Plasma [facility] Start: 07-14-2022 [facility] Start: 07-13-2022 Comprehensive metabolic 2000 panel - Serum or Plasma [facility] Start: 07-13-2022 [facility] Start: 07-12-2022 Comprehensive metabolic 2000 panel - Serum or Plasma [facility] Start: 07-12-2022 [facility] Start: 07-11-2022 End: 07-12-2022 [facility] Start: 07-11-2022 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 [facility] Start: 07-11-2022 Consultation [facility] Start: 07-11-2022 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 [facility] Start: 07-11-2022 End: 07-11-2022 [facility] Start: 07-11-2022 CT of head without contrast CT head/brain wo con [facility] Start: 07-11-2022 CT Unspecified body region WO contrast [facility] Start: 07-10-2022 End: 07-10-2022 [facility] Start: 07-10-2022 Microbial culture of sputum [facility] Start: 07-10-2022 Ultrasonography of abdomen US abdomen limited [facility] Start: 07-10-2022 Consultation [facility] Start: 07-10-2022 Hospital admission [facility] Start: 07-10-2022 Plain chest X-ray XR chest 1V portable [facility] Start: 07-10-2022 XR Chest Single view [facility] Start: 07-10-2022 CT Abdomen and Pelvis WO contrast [facility] Start: 07-10-2022 CT Chest WO contrast [facility] Start: 07-10-2022 CT of abdomen and pelvis without contrast CT abdomen pelvis wo con [facility] Start: 07-10-2022 CT of chest without contrast CT chest wo [facility] Start: 07-10-2022 Plain chest X-ray XR chest 1V portable [facility] Start: 07-10-2022 XR Chest Single view [facility] Start: 07-10-2022 Bacteria identified in Blood by Culture [facility] Start: 07-10-2022 Bacteria identified in Urine by Culture [facility] Albumin/Globulin ratio [facility] Anion gap measurement [facility] aPTT in Platelet poo r plasma by Coagulation assay [facility] Basophils [#/volume] in Blood by Automated count [facility] Basophils/100 leukoc ytes in Blood by Automated count [facility] Eosinophils [#/volum e] in Blood [facility] Eosinophils [Presenc e] in Urine sediment by Dodge stain [facility] Eosinophils/100 leuk ocytes in Blood by Automated count [facility] Erythrocyte distribu tion width [Ratio] by Automated count [facility] Erythrocytes [#/volu me] in Blood [facility] Globulin [Mass/volum e] in Serum [facility] Hematocrit [Volume F raction] of Blood [facility] Hemoglobin [Mass/vol ume] in Blood [facility] INR in Platelet poor plasma by Coagulation assay [facility] Leukocytes [#/volume ] corrected for nucleated erythrocytes in Blood by Automated coun [facility] Leukocytes [#/volume] in Blood [facility] Lymphocytes [#/volum e] in Blood by Automated count [facility] Lymphocytes/100 leuk ocytes in Blood by Automated count [facility] MCH [Entitic mass] b y Automated count [facility] MCHC [Mass/volume] b y Automated count [facility] MCV [Entitic volume] by Automated count [facility] Monocytes [#/volume] in Blood by Automated count [facility] Monocytes/100 leukoc ytes in Blood by Automated count [facility] Neutrophils [#/volum e] in Blood by Automated count [facility] Neutrophils/100 leuk ocytes in Blood by Automated count [facility] Nucleated erythrocyt es [Presence] in Blood by Automated count [facility] Platelet mean volume [Entitic volume] in Blood by Automated count [facility] Platelets [#/volume] in Blood [facility] Payers Date Payer Category Payer Medicaid [id number] 1959 Medicare [id number] 1959 Self-pay 1955 Unknown [id number] 2.16.84 [id number] 1955 Unknown [id number] 2.16.84 0.1.142985.3.579.2.593 1955 Unknown [id number] 2.16.84 0.1.522492.3.579.2.593 1955 Unknown [id number] 2.16.84 0.1.657768.3.579.2.593 1955 Unknown [id number] 2.16. 840.1.333699.3.579.2.356 1955 Unknown [id number] 2.16. 840.1.547473.3.579.2.356 1955 Unknown [id number] 2.16. 840.1.018446.3.579.2.356 1955 Unknown [id number] 2.. 840.1.935073.3.579.2. 1955 Unknown [id number] 2.. 840.1.270580.3.579.2. 1955 Unknown [id number] 2. 840.1.463629.3.579.2. 1955 Unknown [id number] 2. 840.1.264630.3.579.2. 1955 Unknown [id number] 2. 840.1.606617.3.579.2.356 1955 Unknown [id number] 2. 840.1.274806.3.579.2.356 1955 Unknown [id number] 2. 840.1.480998.3.579.2. 1955 Unknown [id number] 2. 840.1.203765.3.579.2.356 1955 Unknown [id number] 2.. 840.1.386523.3.579.2. 1955 Unknown [id number] 2.16. 840.1.628222.3.579.2. 1955 Unknown [id number] 2. 840.1.326910.3.579.2.356 Medicare Medicare [id number] Unknown Unknown [id number] Unknown [id number] 2.16.8 40.1.868201.3.579.2.531 Unknown [id number] 2.16.8 40.1.057258.3.579.2.531 Unknown [id number] 2.16.8 40.1.133266.3.579.2.531 Social History Date Type Detail Facility Start: 07-11-2022 End: 07-16-2022 Tobacco smoking status NHIS Never smoked tobacco (finding) [facility] Start: 1955 Sex Assigned At Male F [facility] Sex Assigned At Sex Assigned At Bir th [employer] Other Occasional alcohol use Occasional alcohol use -[facility] DO Work Phone: Comment on above: 3-4 beers weekly; Medical Equipment Procedure Code Equipment Code Equipment Origin al Text Equipment Identifier Dates Insertion, pacemaker Endocardial pacing lead [id number] FDA Start: 07-16-2022 Insertion, pacemaker Endocardial pacing lead ()[id number] FDA Start: 07-16-2022 Insertion, pacemaker Dual-chamber implantable pacemaker, rate-responsive ()[id number] FDA Start: 07-16-2022 Goals Date Patient Goal Desired Activity /State Functional Status Date Assessment Result Facility 07-11-2022 Functional status Patient Not at Baseline [facility] Work Phone: Mental Status Date Assessment Result Facility 07-11-2022 Cognitive function Cognitive Sta tus Patient Not at Baseline [facility] Work Phone: Clinical Notes 12-09-2021 to 09-14-2022 Note Date & Type Note Facility 09-14-2022 Evaluation note Encounter Date Diagnosis Assessment Notes Aug, Anemia (ICD-10 - D64.9) [facility] [employer] Other 05-14-2023 History and physical note Author Iris Lassiter [facility] July 11, 2022 1:36am Note Date/Time July 10, 2022 11:05 pm [facility] [address] [place] [address] Hospitalist H&P Signed Patient: Jaime Lechuga MR#: [id number] : 1955 Acct:[id number] Age/Sex: 66 / M Adm Date: 3 Loc: Room: [address] [place] [address] Type: ADM IN Attending Dr: Iris Lassiter DO Copies to: Iris Lassiter DO NO FAMILY PHYSICIAN~ HPI DATE OF EXAMINATION: 07/10/22 CHIEF COMPLAINT: malaise HISTORY OF PRESENT ILLNESS: This patient is a 66-year-old male who presented to the emergency department earlier this evening with reports of increased malaise and weakness progressing over the past 1 to 2 weeks. EMS came to the patient's house and brought him in and noted him to be significantly bradycardic and hypotensive. He was provided IV fluids and IV atropine. Junctional bradycardia with incomplete right bundle branch block was noted on initial EKG. This also revealed ST-T wave changes suggesting possible ischemia with T wave inversion and depression noted in the inferior lateral leads. Respiratory rate of 20/min, blood pressure 101/51, 97% oxygen saturation on room air. Patient's blood pressures continue to remain lowand eventually he developed hypoxia requiring 6 L nasal cannula. CBC revealed mild leukocytosis of 12.6 (predominantly neutrophils), anemia with an H&H of 7.9/26.7, microcytic with an MCV of 80.0. Platelets normal at 180. Nucleated RBCs were noted at 1.7. Patient's INR is elevated at 4.3, PTT is within normal limits at 28.7, D-dimer elevated at 1944. Chemistries are significant for hyponatremia 132, hyperkalemia 5.5, hypochloremia 93, BUN/creatinine elevated 59/2.17. Patient's lactic acid is elevated at 6.1. Calcium is low normal when adjusted for albumin. Total bilirubin mildly elevated 1.3, other LFTs AST, ALT, alkaline phosphatase 789, 615, 235 respectively. High-sensitivity troponin elevated 48.3. TSH within normal limits at 2.96. ABG obtained on 2 L nasal cannula 7.35/48/54.7. Urinalysis performed revealed cloudy dark yellow appearing urine with 100 mg/dL of protein, trace ketones, 1+ bilirubin as well as presence of WBCs, RBCs and hyaline casts. No bacteria or nitrites were noted. Digoxin level was within therapeutic range at 1.5. Imaging included an initial chest x-ray that appeared unremarkable. Noncontrasted CT of the chest abdomen and pelvis was performed revealing mild right lower lobe dependent atelectasis versus infiltrate and mild right mediastinal lymphadenopathy, small right-sided pleural effusion. Right lower lobe nodule is noted within the lungs at 0.8 cm, recommend follow-up CT in 6 months. Centrilobular emphysema is noted as well as hypodense cardiac blood pool, most compatible with anemia . Small abdominal ascites and body wall edemais noted. Due to ongoing bradycardia and hypotension a central line was placed in the right subclavian vein and Levophed drip was initiated. Cardiology was contactedfrom the ER. Patient's full history is unclear however he has home medications noted of metoprolol, digoxin, diltiazem, Eliquis and Plavix. In an effort to reverse potential overdose of these medications glucagon and calcium gluconate were provided. Despite no definitive source of infection, the patient was started on IV cefepime for underlying sepsis as he is noted to exhibit significant lactic acid elevation. Fever noted of 100 ?F at 2300. Physical Examination: GENERAL APPEARANCE: Alert, pleasant, disheveled appearing elderly male HEENT: NCAT, MMM NECK: Neck soft w/o masses, no JVD CARDIAC: Normal S1 and S2. No S3, S4 or murmurs. LUNGS: Coarse breath sounds anteriorly ABDOMEN: Positive bowel sounds. Soft, nontender. No guarding or signs of an acute abdomen MUSCULOSKELETAL: No joint erythema or tenderness. EXTREMITIES: No clubbing, cyanosis. Trace pitting edema NEUROLOGICAL: No focal deficits SKIN: Flaky dry unkempt skin of the lower extremities PSYCHIATRIC: Appropriate mood and affect Assessment and plan: 1. Junctional bradycardia 2. Hypotension 3. Lactic acidosis 4. Acute kidney injury 5. Acute hypoxic hypercarbic respiratory failure 6. Hyperkalemia 7. Hyponatremia 8. Elevated troponin 9. Coagulopathy 10. Elevated liver function tests 11. Anion gap metabolic acidosis 12. Atrial fibrillation Upon arrival to the intensive care unit the patient is doing well hemodynamically with a normal sinus bradycardia now in the high 50s. P waves are now noted as opposed to his presenting junctional rhythm. We will attempt to taper off norepinephrine as patient can tolerate. He had significant lactic acidosis on arrival likely from ongoing hypoxia and bradycardia/hypotension in the field. This has down trended with IV hydration. He has no definitive evidence of infection but he exhibits mild leukocytosis and given the criticallyill state he presents and I feel warrants antibiotic therapy. We will continue cefepime provided in the ER. He does still require 6 L nasal cannula but appears comfortable on this presently. Consult to pulmonology for critical caremanagement/respiratory failure. Given his anion gap metabolic acidosis likely from lactic acid we will continue IV hydration. His hyperkalemia is mild and hedid receive calcium gluconate. Anticipate this will improve with IV hydration. He will maintain telemetry at this time. We will follow a.m. labs. Consult to cardiology. Patient does endorse a history of atrial fibrillation which would be supported by his medication list. His INR is significantly higher than 1 would expect on Eliquis. This is in the setting of his significant transaminitis as well. I doubt the patient has true liver failure however will need to sequentially follow these labs and rule this out. Right upper quadrant ultrasound is pending. He does have hepatic granulomas noted on initial CT scanwhich could be caused by a number of different pathologies. In light of this wewill consult gastroenterology. We will add on urine electrolytes to further clarify cause of kidney injury and hyponatremia. Disposition: Patient is admitted for multiple acute medical issues as noted above. He will require a stay in the intensive care unit and hospitalization that we will undoubtedly surpass greater than 2 midnights. He is thus admitted as an inpatient. Review of Systems Review of Systems All other systems reviewed & are negative unless noted below or in HPI PMFSH Vaccinated for COVID-19?: Unknown Medical History Afib Hernia Hypertension Surgical History Stented coronary artery Meds Medications and Allergies Allergies codeine Allergy (Verified 07/10/22 19:25) Unknown Reaction Home Medications apixaban 5 mg tablet (Eliquis) 5 mg PO DAILY 07/10/22 [History Confirmed 07/10/22] clopidogrel 75 mg tablet (Plavix) 75 mg PO DAILY 07/10/22 [History Confirmed 07/10/22] digoxin 125 mcg (0.125 mg) tablet 125 mcg PO DAILY 07/10/22 [History Confirmed 07/10/22] diltiazem HCl 180 mg capsule,24 hr,extended release 180 mg PO DAILY 07/10/22 [History Confirmed 07/10/22] metoprolol tartrate 25 mg tablet 25 mg PO DAILY 07/10/22 [History Confirmed 07/10/22] omeprazole 40 mg capsule,delayed release 40 mg PO DAILY 07/10/22 [History Confirmed 07/10/22] Exam Physical Exam Vital Signs: Temp Pulse Resp BP Pulse Ox O2 Del Method O2 Flow Rate 100 F H 40 L 20 117/53 L 98 Nasal Cannula 6 07/10/22 23:00 07/10/22 23:00 07/10/22 23:00 07/10/22 23:00 07/10/22 23:00 07/10/22 23:00 07/10/22 23:00 Results Lab Results Labs: Laboratory Last Values Corrected WBC 12.6 X10E3/uL (4.1-10.5) H 07/10/22 19:28 Uncorrected WBC Count 12.6 x10E3/uL (4.1-10.5) H 07/10/22 19:28 RBC 3.33 X10E6/uL (3.90-5.60) L 07/10/22 19:28 Hgb 7.9 g/dL (13.0-17.0) L 07/10/22 19:28 Hct 26.7 % (38.8-50.0) L 07/10/22 19:28 MCV 80.0 fl (83.5-101) L 07/10/22 19:28 MCH 23.6 pg (27.5-35.2) L 07/10/22 19:28 MCHC 29.5 g/dL (32.5-35.6) L 07/10/22 19:28 RDW 18.0 % (12.0-14.8) H 07/10/22 19:28 Plt Count 180 x10E3/uL (150-450) 07/10/22 19:28 MPV 9.9 fl (6.6-10.1) 07/10/22 19: Neut % (Auto) 82.1 % (.) 07/10/22 19: Lymph % (Auto) 7.3 % (.) 07/10/22 19: [place] % (Auto) 10.0 % (.) 07/10/22 19: Eos % (Auto) 0.0 % (.) 07/10/22 19: Baso % (Auto) 0.6 % (.) 07/10/22 19: Nucleat RBC Rel Count 1.7 /100 WBC (0-0.5) H 07/10/22 19: Neut # (Auto) 10.5 x10E3/uL (1.8-7.7) H 07/10/22 19: Lymph # (Auto) 0.9 x10E3/uL (1.00-4.8) L 07/10/22 19: [place] # (Auto) 1.3 x10E3/uL (0.0-0.8) H 07/10/22 19: Eos # (Auto) 0.0 x10E3/uL (0.0-0.45) 07/10/22 19: Baso # (Auto) 0.1 x10E3/uL (0.0-0.2) 07/10/22 19: Monocyte Dist Width 17.34 % (0.00-20.00) 07/10/22: Platelet Estimate Normal (Normal) 07/10/22 19: Large Platelets Slight 07/10/22 19: Plt Morphology Comment N/A 07/10/22 19: RBC Morphology N/A 07/10/22 19: Polychromasia Moderate 07/10/22 19: Hypochromasia Moderate 07/10/22 19: Anisocytosis Slight 07/10/22 19: Microcytosis Slight 07/10/22 19: PT 48.8 Seconds (9.0-12.9) H 07/10/22 19: INR 4.3 07/10/22 19: APTT 28.7 Seconds (25.1-36.5) 07/10/22 19: D-Dimer Quant (PE/DVT) 1944 ng/mL (0-243) H 07/10/22 19:28 Sample Site Left radial 07/10/22 20:31 ABG pH 7.35 (7.35-7.45) 07/10/22 20:31 ABG pCO2 48.0 mmHg (35.0-45.0) H 07/10/22 20:31 ABG pO2 54.7 mmHg (80.0-100.0) L 07/10/22 20:31 ABG HCO3 25.7 mmol/L (23.0-29.0) 07/10/22 20:31 ABG Total CO2 27.1 mmol/L (23.0-27.0) H 07/10/22 20:31 ABG O2 Saturation 82.7 % (95.0-100.0) L 07/10/22 20:31 ABG O2 Content 4.4 mmol/L (6.6-9.7) L 07/10/22 20:31 ABG Base Excess -0.2 mmol/L (-3.0-3.0) 07/10/22 20:31 O2 Delivery Device Nasal cannula 07/10/22 20:31 Liter Flow 2 L/min 07/10/22 20:31 FiO2 28 % 07/10/22 20:31 Critical Value 07/10/22 20:31 PHA Creatinine Clear 31.35 07/10/22 19:28 Sodium 132 mmol/L (136-145) L 07/10/22 19:28 Potassium 5.5 mmol/L (3.5-5.1) H 07/10/22 19:28 Chloride 93 mmol/L (98-107) L 07/10/22 19:28 Carbon Dioxide 26.6 mmol/L (21.0-31.0) 07/10/22 19:28 Anion Gap 17.9 mEq/L (6.0-15.0) H 07/10/22 19:28 BUN 59 mg/dL (7-25) H 07/10/22 19:28 Creatinine 2.17 mg/dL (0.70-1.30) H 07/10/22 19:28 Est GFR (CKD-EPI) 32.762 mL/Min 07/10/22 19:28 Glucose 110 mg/dL (70-100) H 07/10/22 19:28 Lactic Acid 6.1 mmol/L (0.5-2.2) H* 07/10/22 19: Calcium 7.1 mg/dL (8.6-10.3) L 07/10/22 19: Magnesium 2.1 mg/dL (1.9-2.7) 07/10/22 19: Total Bilirubin 1.3 mg/dl (0.3-1.0) H 07/10/22 19:28 AST 789 U/L (13-39) H 07/10/22 19: ALT 615 U/L (7-52) H 07/10/22 19: Alkaline Phosphatase 235 U/L (34-104) H 07/10/22 19: Total Creatine Kinase 53 U/L (30-223) 07/10/22 19: Troponin I High Sens 48.3 pg/mL (0.0-20.0) H 07/10/22 19: Total Protein 6.5 gm/dL (6.4-8.9) 07/10/22 19: Albumin 3.3 gm/dL (3.5-5.7) L 07/10/22 19: Globulin 3.2 gm/dL 07/10/22: Albumin/Globulin Ratio 1.0 07/10/22: TSH 3rd Generation 2.96 uIU/mL (0.45-5.33) 07/10/22 19: Urine Color Dark yellow (Yellow) A 07/10/22: Urine Appearance Cloudy (Clear) A 07/10/22: Urine pH 5.0 (5.0-9.0) 07/10/22: Ur Specific [place] 1.020 (1.001-1.030) 07/10/22: Urine Protein 100 mg/dL (Negative) H 07/10/22: Urine Glucose (UA) Normal mg/dL (Normal) 07/10/22: Urine Ketones Trace (Negative) H 07/10/22: Urine Occult Blood Negative (Negative) 07/10/22 22: Urine Nitrite Negative (Negative) 07/10/22: Urine Bilirubin 1+ (Negative) H 07/10/22: Urine Urobilinogen Normal mg/dL (Normal) 07/10/22 22:23 Ur Leukocyte Esterase 1+ (Negative) H 07/10/22 22:23 Urine RBC 5-9 /HPF (0-4) H 07/10/22 22:23 Urine WBC 5-9 /HPF (0-4) H 07/10/22 22:23 Ur Squamous Epith Cells 3-4 /HPF (0-2) H 07/10/22 22:23 Urine Bacteria None seen (None Seen) 07/10/22 22:23 Hyaline Casts 9-19 /LPF (0-8) H 07/10/22 22:23 Digoxin 1.5 ng/mL (0.9-2.0) 07/10/22 19:28 Blood Type A Positive 07/10/22 19:35 Blood Type Recheck A Positive 07/10/22 20:02 Antibody Screen Negative 07/10/22 19:35 Microbiology Results Micro: Microbiology - Results from entire visit 07/10/22 21:05 Stool Stool Occult Blood (TRACY) - Final ABG Interpretation ABG results: 07/10/22 07/10/22 20:26 20:31 ABG pH 7.33 L 7.35 ABG pCO2 44.3 48.0 H ABG pO2 50.8 L 54.7 L ABG HCO3 22.6 L 25.7 ABG Total CO2 24.0 27.1 H ABG O2 Saturation 77.6 L 82.7 L ABG O2 Content 4.1 L 4.4 L ABG Base Excess -3.2 L -0.2 Assessment & Plan IP vs OBS Justification Based on differential dx, clinical care plan, and risk of adverse events, if untreated, in my clinical judgement this patient requires an acute care setting as: INPATIENT because of an expectation of an over 2 midnight stay. Estimated length of stay (# of days): 3 Documented By: Iris Lassiter DO 07/10/2220 07 Signed By: <Electronically signed by Iris Lassiter DO> 07/11/22 0136 [facility] Work Phone: [phone] 896-392310-12-2022 [id number] discussion with patient regarding importance of smoking cessation he voiced understanding and states he will try to quit smoking again in light he is only smoking 4 to 5 cigarettes a [facility] 12-09-2021 NoteNYHC II-currently euvolemic without exacerbation Continue goal-directed medical therapy-he has not needed any diuresis. Continue fluid restriction 1-1/2 to 2 L/day, low-sodium diet, daily weights discussed with patient when to call office for concerns of increased weight, increased shortness of breath or orthopnea or any other concerns and he voiced understandingUn[facility]10-12-2022 NoteNo concerning symptoms today, strongly recommended to continue medication regimen and to quit smokingUnMercy [facility]10-12-2022 Note [id number]= 4 age, HTN, CHF, vascular disease Continue eliquis anticoagualtion- denied bleeding tendencies Currently in rhythm per assessment Continue diltiazem, digoxin and metoprolol as prescribedCoshocton [facility]10-12-2022 NoteHPI: Jaime Lechuga is a 66 y.o. male here for Congestive Heart Failure, Atrial Fibrillation, and Peripheral Vascular Disease HPI Patient here for 4 mo follow up Congestive Heart Failure, Atrial Fibrillation, and Peripheral Vascular Disease. Had labs and CT Chest last month. Denies chest pain, SOB, and bleeding on Eliquis. He is back to smoking, but only 4-5 cigarettes a day. Review of Systems All other systems reviewed and are negative. Visit Vitals BP 123/58 (BP Location: Left arm, Patient Position: Sitting) Pulse 83 Ht 1.753 m (5' 9 ) Wt 66.2 kg (146 lb) SpO2 90% BMI 21.56 kg/m??? Smoking Status Every Day BSA 1.8 m??? Medications: Current Outpatient Medications on File Prior to Visit Medication Sig Dispense Refill apixaban (Eliquis) 5 mg tablet Take 5 mg by mouth in the morning and 5 mg in the evening. clopidogrel (Plavix) 75 mg tablet Take 1 tablet by mouth in the morning. digoxin (Lanoxin) 125 MCG tablet Take 1 tablet by mouth in the morning. dilTIAZem ER (Tiazac) 180 mg 24 hr capsule Take 1 capsule by mouth in the morning. metoprolol tartrate (Lopressor) 25 mg tablet Take 25 mg by mouth in the morning and at bedtime. omeprazole (PriLOSEC) [address] capsule TAKE 1 CAPSULE BY MOUTH ONCE DAILY ON AN EMPTY STOMACH albuterol 90 mcg/actuation inhaler Inhale 2 puffs in the morning, at afternoon, at bedtime, and 2 AM. No current facility-administered medications on file prior to visit. Physical Exam: Constitutional: Appearance: Normal appearance. Without apparent distress HENT: Head: Normocephalic and atraumatic. Nose: Nose normal. Mouth/Throat: Mouth: Mucous membranes are moist. Eyes: Extraocular Movements: Extraocular movements intact. Conjunctiva/sclera: Conjunctivae normal. Neck: Vascular: No JVD. Cardiovascular: Rate and Rhythm: Normal rate and regular rhythm. Pulses: Dorsalis pedis pulses are 3 on the right side and 3on the left side. Posterior tibial pulses are 3 on the right side and 3 on the left side. Heart sounds: Normal heart sounds, S1 normal and S2 normal. Pulmonary: Effort: Pulmonary effort is normal. Breath sounds: Normal breath sounds. Abdominal: General: Bowel sounds are normal. Palpations: Abdomen is soft. Musculoskeletal: General: Normal range of motion. Cervical back: Normal range of motion. Right lower leg: No edema. Left lower leg: No edema. Skin: General: Skin is warm and dry. Capillary Refill: Capillary refill takes less than 2 seconds. Neurological: General: No focal deficit present. Mental Status: She is alert and oriented to person, place, and time. Psychiatric: Mood and Affect: Mood normal. Behavior: Behavior normal. Thought Content: Thought content normal. Judgment: Judgment normal. Labs: Last lab values have been reviewed Reviewed labs from 11/16/2021-renal function normal BUN 12, creatinine 0.90, potassium 3.9 Digoxin level 0.5 stable CV Testing: Echo 07/17/21 Assessment/Plan: Paroxysmal atrial fibrillation (CMS/HCC) [id number]= 4 age, HTN, CHF, vascular disease Continue eliquis anticoagualtion- denied bleeding tendencies Currently in rhythm per assessment Continue diltiazem, digoxin and metoprolol as prescribed Peripheral vascular disease (CMS/HCC) No concerning symptoms today, strongly recommended to continue medication regimen and to quit smoking Chronic diastolic heart failure (CMS/HCC) [facility] II-currently euvolemic without exacerbation Continue goal-directed medical therapy-he has not needed any diuresis. Continue fluid restriction 1-1/2 to 2 L/day, low-sodium diet, daily weights discussed with patient when to call office for concerns of increased weight, increased shortness of breath or orthopnea or any other concerns and he voiced understanding Tobacco dependence 10-minute discussion with patient regarding importance of smoking cessation he voiced understanding and states he will try to quit smoking again in light he is only smoking 4 to 5 cigarettes a day Return to clinic in 6 months to 1 year unless he has any concernsCoshocton [facility]10-12-2022 NoteSubjective Jaime Lechuga is a 66 y.o. male. Chief Complaint: Patient here for 4 mo follow up Congestive Heart Failure, Atrial Fibrillation, and Peripheral Vascular Disease. Had labs and CT Chest last month. Denies chest pain, SOB, and bleeding on Eliquis. He is back to smoking, but only 4-5 cigarettes a day. ROS Objective Physical Exam Vital Signs Ht 1.753 m (5' 9 ) BMI 20.67 kg/m??? Lab Review: Assessment/Plan There were no encounter diagnoses.[facility] Center[facility]* Diagnosis Onset Date Resolution Status Acidosis, lactic acute Elevated troponin acute Hypotension acute Hypoxemia acute Junctional bradycardia acute Renal insufficiency acute [facility] Work Phone: Evaluation noteNo assessment information available [facility] Work Phone: Hislsxa general Narrative - Reported* Type Description Date Medical History hernia Medical History pacemaker Medical History COPD Medical History ILIAC STENT PLACEMENT Medical History RECTAL FISTULA Surgical History hernia repair Surgical History ILIAC STENT PLACEMENT Surgical History RECTAL FISTULA Hospitalization History SEE ABOVE [employer] Other History of Present illness Narrative* The patient presents with paroxysmal atrial fibrillation. The treatment strategy for this patient is rhythm control. He states his atrial fibrillation has been stable since the last visit. * Symptoms: denies palpitations, denies chest pain, denies exercise intolerance, denies dyspnea on exertion and denies dizziness. Associated symptoms include no syncope. * Risks: no increased risk for falling. * Medications: the patient is adherent with his medication regimen. He denies medication side effects. -[facility] [facility] DO Work Phone: History of Present illness Narrative* The patient presents with paroxysmal atrial fibrillation. The treatment strategy for this patient is rhythm control. He states his atrial fibrillation has been stable since the last visit. * Symptoms: denies palpitations, denies chest pain, denies exercise intolerance, denies dyspnea on exertion and denies dizziness. Associated symptoms include no syncope. * Risks: no increased risk for falling. * Medications: the patient is adherent with his medication regimen. He denies medication side effects. [facility] [employer] DO Work Phone: History of Present illness Narrative* The patient presents with paroxysmal atrial fibrillation. The treatment strategy for this patient is rhythm control. He states his atrial fibrillation has been stable since the last visit. * Symptoms: denies palpitations, denies chest pain, stable exercise intolerance, stable dyspnea on exertion and denies dizziness. Associated symptoms include no syncope. * Risks: no increased risk for falling. [facility] [employer] DO Work Phone: Summary Purpose Family History No Family History Records FoundUnknown Family Member Name Dates Details No pertinent family history: Mother, Sibling(V49.89, Z78.9) Status:Active Family history of leukemia: Father(V16.6, Z80.6) Status:Active : Father Status:Active Unknown Family Member Name Dates Details No pertinent family history: Mother, Sibling(V49.89, Z78.9) Status:Active Family history of leukemia: Father(V16.6, Z80.6) Status:Active : Father Status:Active Unknown Family Member Name Dates Details No pertinent family history: Mother, Sibling(V49.89, Z78.9) Status:Active Family history of leukemia: Father(V16.6, Z80.6) Status:Active : Father Status:Active Advance Directives No Advanced Directives Records Found Advance Directive Response Recorded Date/ Time Advance Directives No July 10 3 9:20pm Advance Directive Response Recorded Date/ Time Advance Directives No July 10 3 8:20pm Chief Complaint and Reason for Visit Chief Complaint low heart rate Reason for Visit Acidosis, lactic Elevated troponin Hypotension Hypoxemia Junctional bradycardia Renal insufficiency Chief Complaint sss Chief Complaint * 3 month f/u: 'seem to be doing ok' * JAIME LECHUGA is being seen for a 15 week follow-up of post pcm. * 3 month f/u: 'seem to be doing ok' * JAIME LECHUGA is being seen for a 15 week follow-up of post pcm. * Patient presents to the office ambulatory with steady gait. This is initial in clinic follow-up at [facility]. * Patient reports remote history of iliac stenting in [place] and has been maintained on Plavix for 7 years, follows with vascular in [place]. Reports being hospitalized last year in [place] due to atrial fibrillation and started on Eliquis at that time, no antiarrhythmics. * June 2022 presented to [facility] due to weakness, seen in consult by Dr. 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 On July 16, 2022 uneventful implant dual-chamber permanent pacemaker. He was initiated on dofetilide due to paroxysmal atrial fibrillation. He also presented with a hemoglobin 7.1, received 2 units of packed red blood cell. At time of discharge Eliquis and Plavix were placed on hold. Reports being seen outpatient by GI with no plans for evaluation. Reports repeat labs approximately [address] [facility]. * He was seen outpatient by vascular and they resumed his Plavix approximately 2 weeks ago. * He follows routinely with pulmonary, has been on oxygen since discharge. No increased use of rescueinhaler. * He reports being fairly sedentary by choice. He ambulated in from the parking lot without complaints. Overall reports doing just fine . * 3-month post device chest x-ray and device interrogation reviewed. Wound check was completed by medical staff, left prepectoral site examined today and is unremarkable. * He presents to the office today where after ambulating in from the parking lot EKG is A-fib with RVR at 144. He is completely asymptomatic. Most recent device interrogation showed 3% mode switching -with longest episode 1 hour and 6 minutes. He follows pulse on a pulse ox machine routinely at home and is usually in the 80s. After sitting in the office approximately 10 minutes heart rate is down to the 90s. He has been compliant with dose of dofetilide and and I have verified medication bottle. QTc in office 458. * CHADS VASc 2 (age, PAD). Reviewed need for cardioembolic protection due to atrial fibrillation. He denies any type of melena, no hematochezia. Will resume Eliquis 5 mg twice daily. Obtain most recentlabs and repeat CBC after 2 weeks of anticoagulation. Briefly introduced left atrial appendage occlusive device as an additional treatment option. * 3% mode switching on dofetilide 250 mcg twice daily. Remains asymptomatic even in office with briefA-fib with RVR. We will add low-dose beta-erica and continue to follow remote monitoring for efficacy. * His vascular procedure was greater than 7 years ago. To reduce bleeding risk we will discontinue Plavix at this time. * Recent echo with LVEF 65 to 70%. RV mildly dilated with severe hypokinesis of the distal segment. He denies any prior type of ischemic work-up. We will arrange ischemic testing once assure stability with anticoagulation and control of atrial fibrillation. * Due to PAD should be on a statin but June 2022 AST 182, ALT 480 (repeat at next f/u) * 2 month f/u: 'doing fine' * JAIME LECHUGA is being seen for a 2 week follow-up of atrial fibrillation. * Patient presents to the office ambulatory with steady gait. Last evaluated in clinic by myself approximately 2 weeks ago. At that time he was noted to have A-fib with RVR, was completely asymptomatic. After sitting in the office heart rate went down to the 90s. He had verbalize compliance with dofetilide dosage. I initiated Eliquis 5 mg twice daily with repeat hemoglobin 11.8. Discontinued Plavixdue to initiation of DOAC, recent anemia during June 2022 hospitalization (on board d/t remote iliacstenting) And added low-dose metoprolol. He has been compliant with changes. * He presents to the office today reports 1 brief episode of atrial fibrillation, this was caught on his pulse ox machine. Otherwise he remains very asymptomatic in atrial fibrillation (even in office 2 weeks ago heart rate 144 without complaints). He does have a remote monitor at home for permanent pacemaker. He is fairly sedentary by choice, has been utilizing oxygen since June 2022. He did ambulate in from the parking lot without complaints. He denies any type of exertional chest pain, no dyspnea on exertion. No evidence of orthopnea or PND. * EKG in office today normal sinus rhythm at 77 on dofetilide 250 mcg twice daily with QTc 468, CR 0.55 * CHADS VASc 2 tolerating full dose Eliquis denies any type of bleeding diatheses. * SJM 2271 dual chamber PPM: Sep 2022 device interrogation * June 2022 Echo EF 65-70%, RV mildly dilated with severe hypokinesis of the distal segment. Is a former smoker (quit within 3 months) with COPD and hypoxia. No evidence of cor pulmonale. * Due to PAD should be on a statin but June 2022 AST 182, ALT 480. I had ordered repeat BMP at last office visit but only CBC results were sent - will request results. * Reports remote stress testing. Current daily activity less than 4 METS by choice. June 2022 hospitalization Type II NSTEMI. No exertional symptoms. * Clinically stable. Additional Source Comments (unrecognized sect ion and content) No Status Records FoundNo Status Records FoundNo Status Records FoundNo Status Records FoundNo Status Records Found INFORMATION SOURCE (unrecogn ized section and content) DATE CREATED AUTHOR 11/25/2021 [facility] DATE CREATED AUTHOR AUTHOR'S ORGANIZ ATION 12/09/2021 [facility] DATE CREATED AUTHOR AUTHOR'S ORGANIZ ATION 11/12/2022 [facility] DATE CREATED AUTHOR AUTHOR'S ORGANIZ ATION 11/12/2022 [employer] DATE CREATED AUTHOR AUTHOR'S ORGANIZ ATION 02/01/2023 [facility] Care Teams (unrecognized sec tion and content) Team Status: Active Member Role Status Dates PHYSICIAN NO FAMILY Primary Care Provider Active Team Status: Active Member Role Status Dates Iris Holliday MD Emergency Provider Active PHYSICIAN NO FAMILY Primary Care Provider Active Iris Lassiter DO Admit Provider, Attending Provider Active Team Status: Active Member Role Status Dates Shaikh Tiffany MD Primary Care Provider Active Team Status: Inactive Member Role Status Dates Jaziel Gomez MD Attending Provider Active Shaikh Tiffany MD Primary Care Provider Active Team Status: Inactive Member Role Status Dates Shaikh Tiffany MD Primary Care Provider Active Jaziel Gomez MD Attending Provider Active REASON FOR VISIT (unrecogniz ed section and content) PATIENT IS HERE FOR FOLLOW U P FOR ANEIMA. SEEN INPATIENT AT [facility] Goals (unrecognized section and content) Goals may be documented in a n alternate section FOR RECORDS PERTAINING TO PATIENTS WHO ARE OR HAVE BEEN ENROLLED IN A CHEMICAL DEPENDENCY/SUBSTANCEABUSE PROGRAM, SOME INFORMATION MAY BE OMITTED. This clinical summary was aggregated from multiple sources. Caution should be exercised in using it in the provision of clinical care. This summary normalizes information from multiple sources, and as a consequence, information in this document may materially change the coding, format and clinical context of patient data. In addition, data may be omitted in some cases. CLINICAL DECISIONS SHOULD BE BASED ON THE PRIMARY CLINICAL RECORDS. [facility] [employer] [facility]. provides no warranty or guarantee of the accuracy or completeness of information in this document.
== END 2023-01-10 10:17 | disposition home or self-care (01) ==
LOC: RAD 10:16
PROVIDERS: Visit Provider Orthopaedic Surgery
DX: S42.294A Other nondisplaced fracture of upper end of right humerus, initial encounter for closed fracture (principal); S42.214D Unspecified nondisplaced fracture of surgical neck of right humerus, subsequent encounter for fracture with routine healing
CPT/HCPCS: 73030

== ENCOUNTER 2023-02-07 10:22 | Outpatient (OUT) | payer MEDICARE, SELFPAY ==
--- NOTE | 2023-02-07 10:28 | XR_ITS ---
The [address] [address] Patient Name: ALESSANDRA LECHUGA MRN: [id number] date: 1955 Sex: M Assigned Patient Location: [facility] Current Patient Location: [facility] Accession/Order Number: [id number] Exam Date: 02/07/2023 10:35 Report Date: 02/07/2023 23:13 At the request of: KATE RYAN Procedure: XR shoulder RT min 2V PROCEDURE: XR shoulder RT min 2V HISTORY: Other Nondisplaced Fracture Of Upper End Of Right Humerus COMPARISON: XR shoulder right 01/10/2023 FINDINGS: BONES:Comminuted, displaced, and angulated right humeral neck fracture; unchanged in alignment. Interval development of callus formation along the margins. Humeral head remains seated within the acetabulum. SOFT TISSUES:No visible soft tissue swelling. EFFUSION:None visible. OTHER: Negative. XR/XR shoulder RT min 2V IMPRESSION: 1. Stable alignment of displaced and angulated right humeral neck fracture. 2. Developing callus formation along the margins compatible with early bone healing. Electronically authenticated by: KATE BUSH Date: 02/07/2023 23:13
== END 2023-02-07 10:23 | disposition home or self-care (01) ==
LOC: RAD 10:22
PROVIDERS: Visit Provider Orthopaedic Surgery
DX: S42.294D Other nondisplaced fracture of upper end of right humerus, subsequent encounter for fracture with routine healing (principal)
CPT/HCPCS: 73030

== ENCOUNTER 2023-03-21 10:15 | Outpatient (OUT) | payer MEDICARE, SELFPAY ==
--- NOTE | 2023-03-21 | XR_ITS ---
The [address] [address] Patient Name: ALESSANDRA LECHUGA MRN: [id number] date: 1955 Sex: M Assigned Patient Location: RAD Current Patient Location: RAD Accession/Order Number: [id number] Exam Date: 03/21/2023 10:55 Report Date: 03/21/2023 11:56 At the request of: KATE RYAN Procedure: XR shoulder RT min 2V PROCEDURE: XR shoulder RT min 2V COMPARISON: None. HISTORY: RIGHT SHOULDER PAIN FINDINGS: BONES:Acute complex fracture right femoral neck with stable apex lateral angulation. Slight increase in bone formation with incomplete bony bridging. No new fracture or dislocation SOFT TISSUES:Negative. No visible soft tissue swelling. EFFUSION:None visible. OTHER: Negative. XR/XR shoulder RT min 2V IMPRESSION: Stable healing right humeral neck fracture Electronically authenticated by: ANNA EUGENE Date: 03/21/2023 11:56
== END 2023-03-21 10:16 | disposition home or self-care (01) ==
LOC: RAD 10:15
PROVIDERS: Visit Provider Orthopaedic Surgery
DX: S42.294D Other nondisplaced fracture of upper end of right humerus, subsequent encounter for fracture with routine healing (principal)
CPT/HCPCS: 73030

== ENCOUNTER 2023-05-23 10:15 | Outpatient (OUT) | payer MEDICARE, SELFPAY ==
--- NOTE | 2023-05-23 | XR_ITS ---
The [address] [address] Patient Name: ALESSANDRA LECHUGA MRN: [id number] date: 1955 Sex: M Assigned Patient Location: Current Patient Location: Accession/Order Number: [id number] Exam Date: 05/23/2023 10:20 Report Date: 05/24/2023 07:36 At the request of: KATE RYAN Procedure: XR shoulder RT min 2V PROCEDURE: XR shoulder RT min 2V COMPARISON: 03/21/2023 HISTORY: RIGHT SHOULDER PAIN FINDINGS: BONES:Stable complex right humeral neck fracture with 46 degrees of apex lateral angulation. Slight increase in bone formation with incomplete bony bridging SOFT TISSUES:Negative. No visible soft tissue swelling. EFFUSION:None visible. OTHER: Negative. XR/XR shoulder RT min 2V IMPRESSION: Stable complex right humeral neck fracture with minimal interval healing Electronically authenticated by: ANNA EUGENE Date: 05/24/2023 07:36
--- OUTSIDE RECORDS SUMMARY | 2023-05-23 10:30 | XMS_ITS | CCD ---
Author Organization [facility] Care Team Providers Care Manager Reporting Name Role Phone REQUEST, DR NONE LISTED Primary Care Unavaila ble ALGHOTHANI, [...] SHAIKH Rasta ALLEN Procedure Practitioner Unavaila ble HOY, DR RODRIGUEZ Admitting Unavailable HOY, DR RODRIGUEZ Attending Unavailable HOY, DR RODRIGUEZ Consulting Unavailable REQUEST, NONE LISTED Primary Care Unavaila ble CAROLYNN, DR JOVANI Breaux Consulting Unavailable JABIER, DR ANNA Durán Consulting Unavailable ELEAZAR, DR KATE Zacarias Consulting Unavailable FAY DOMINGUEZ Consulting Unavailable IRIS ADAM Consulting Unavailable SAMSA, MELITON Consulting Unavailable SHAIKH Rasta ALLEN Consulting Unavailable ANA MARIA BORJA Consulting Unavailable ALGHOTHANI, MOHAMAD Consulting Unavailable QIANA MUNROE Attending Unavailable MD Iris Holliday Emergency Provider NO FAMILY, PHYSICIAN Primary Care Provider Unava ilable DO Iris Lassiter Admit Provider [phone] DO Iris Lassiter Attending Provider Asaad, Imad Unavailable None, No PCP Unavailable Unavailable Unavailable Unavailable MD Jaziel Gomez Attending Provider MD Jaguar Allen Primary Care Provider Judy Asif Attending Unavailable Judy Asif Referring Unavailable Judy Asif Attending Unavailable Yefri, Judy Referring Unavailable Joshuauinn II, Dr. Jaziel Ramirez Attending Unavailable McGuinn II, Dr. Jaziel Ramirez Referring Unavailable McGuinn II, Dr. Jaziel Ramirez Attending Unavailable Joshuauinlulú II, Dr. Jaziel Ramirez Attending Unavailable MD Tiffany [facility] Primary Care Provider [phone] MD Jaziel Gomez Attending Provider SHAIKH ALLEN [facility]ending Un[facility] Jaziel Gomez Attending Unavail able Jaziel Gomez Admitting Unavail able NO FAMILY, PHYSICIAN Primary Care Unavailable Iris Lassiter Admitting Unavailable Elvis Villarreal Attending Unavailab Marylu Weiss Consulting Unavailable Jordan Lilly Consulting Unavailable Eddie Pereira Consulting Unavaila Ran Cosme Consulting Unavailable Bradford Tucker Consulting UnavailMaryuri Hurley Consulting Unavailable Krut Ann Consulting Unavailable Jason Anne Consulting Unavailable [...] Aleman Consulting Unavailable Fox Forbes Consulting Unavailable Ahmed Forman Consulting Unavailable Jose Farooq Consulting Unavailable Sheila Chanel Consulting Unavailable Jevon Burgos Consulting Unavailable Asaad, Imad Consulting Unavailable Hector Qureshi Consulting Unavailable Kulwant Cartwright Consulting Unavailable Delia Mtz Consulting Unavailable Jaziel Gomez Admitting Unavail able Jaziel Gomez Attending Unavail able Tiffany [facility] Primary Care Unavailable Tiffany MARCELO, [facility] Primary Care Provider Jaziel Gomez MD Unavailable [phone] JAZIEL GOMEZ Attending Unavailable SHAIKH ALLEN Primary Care Unavailable Allergies Allergy Classification Reported Allergen(s) Allergy Type Date of Onset Reaction(s) Facility (3 sources) Codeine; Translations: [CODEINE] Drug Allergy 11-05-2021 The Repository (5 sources) Codeine; Translations: [Codeine Derivatives] Drug Allergy 03-25-2023 Other [employer] Other (1 source) Codeine Drug Allergy 09-14-2022 [facility] Repository Medications Current Medications Medication Drug Class(es) Dates Sig (Normalized) Sig (Original) albuterol 0.833 mg/ml / ipratropium bromide 0.167 mg/ml inhalation solution (3 sources) Anticholinergic, beta2-Adrenergic Agonist Start: 07-19-2022 take 1 mL by inhalation every six hours Ipratropium-Albut markie Active 3 ML INHALATION Q6H 180 30 July 18, 2022 11:00pm take 3 mL by inhalat ion every six hours as needed Ipratropium-Albuterol 0.5-2.5 (3) MG/3ML 3 mL as needed Inhalation every 6 hrs Active apixaban 5 mg oral tablet (9 sources) Factor Xa Inhibitor Start: 05-04-2023 End: 05-03-2024 take 1 tablet by mouth twice daily apixaban (Eliquis) 5 mg tablet Indications: Paroxysmal atrial fibrillation (CMS/HCC) Take 1 tablet (5 mg) by mouth 2 times a day. 180 tablet 3 05/04/2023 05/03/2024 Active Start: 10-25-2022 End: 05-04-2023 take 1 tablet by mouth twice daily Eliquis 5 MG Oral Tablet Take 1 tablet twice daily Quantity: 60 Refills: 11 Ordered: 25-Oct-2022 Judy Torres Start : 25-Oct-2022 Active Start: 07-10-2022 take 1 tablet by rebekah th once daily Apixaban (Eliquis) 5 mg tablet Active 5 MG PO Daily July 09, 2022 11:00pm clindamycin 300 mg oral capsule (2 sources) [...] 2022 11:00pm dofetilide 0.25 mg oral capsule (9 sources) Antiarrhythmic Start: 05-04-2023 End: 05-03-2024 take 2 capsules by mouth every twelve hours dofetilide (Tikosyn) 250 mcg capsule Indications: Paroxysmal atrial fibrillation (CMS/HCC) Take 2 capsules (500 mcg) by mouth every 12 hours. 360 capsule 3 05/04/2023 05/03/2024 Active Start: 07-19-2022 take 250 ug by mouth twice dillan ly Dofetilide Active 250 MCG PO Twice daily 60 July 18, 2022 11:00pm take 1 capsule by mo ut every twelve hours Dofetilide 250 MCG 1 capsule Orally Twice a day Active furosemide 20 mg oral tablet (9 sources) Loop Diuretic Start: 05-04-2023 End: 05-03-2024 take 1 tablet by mouth once daily furosemide (Lasix) 20 mg tablet Indications: Paroxysmal atrial fibrillation (CMS/HCC) , SSS (sick sinus syndrome) (CMS/HCC) Take 1 tablet (20 mg) by mouth once daily. 90 tablet 3 05/04/2023 05/03/2024 Active Start: 07-19-2022 End: 05-04-2023 take 20 mg by mouth once daily Furosemide Active 20 MG PO Daily at 0800 30 July 18, 2022 11:00pm 24 hr metoprolol succinate 25 mg extended release oral tablet (8 sources) beta-Adrenergic Erica Start: 05-04-2023 End: 05-03-2024 take 1 tablet by mouth once daily metoprolol succinate XL (Toprol-XL) 25 mg 24 hr tablet Indications: Paroxysmal atrial fibrillation (CMS/HCC) , SSS (sick sinus syndrome) (CMS/HCC) Take 1 tablet (25 mg) by mouth once daily. Do not crush or chew. 90 tablet 3 05/04/2023 05/03/2024 Active Start: 10-25-2022 End: 05-04-2023 take 1 tablet by mouth once daily Metoprolol Succinate ER 25 MG Oral Tablet Extended Release 24 Hour TAKE 1 TABLET DAILY. Quantity: 30 Refills: 6 Ordered: 25-Oct-2022 Judy Torres Start : 25-Oct-2022 Active new start Start: 07-10-2022 End: 07-19-2022 take 25 mg by mouth once daily Metoprolol Tartrate Dis continued 25 MG PO Daily July 09, 2022 11:00pm July 19, 2022 2:04pm omeprazole 40 mg delayed release oral capsule (11 sources) Proton Pump Inhibitor Start: 07-10-2022 End: 07-19-2022 take 40 mg by mouth once daily Omeprazole Active 40 MG PO Daily July 19, 2022 12:18pm oxygen (O2) gas therapy (1 source) oxygen (O2) gas therapy Inhale 1 each continuously. 2 LPM 0 Active sertraline 25 mg oral tablet (8 sources) Serotonin Reuptake Inhibitor Start: 07-19-2022 End: 05-04-2023 take 25 mg by mouth once daily in the evening Sertraline Active 25 MG PO Every evening July 18, 2022 11:00pm tiotropium 0.018 mg inhalation powder (7 sources) Anticholinergic Start: 07-19-2022 Spiriva with HandiHaler [address] 1 capsule (18 mcg) into inhaler and inhale if needed. 0 07/19/2022 Active Start: 07-19-2022 take 1 capsule by in halation once daily Tiotropium [place] (Spiriva With Handihaler) 18 mcg capsule, w/inhalation device Active 1 CAP INHALATION Daily July 18, 2022 11:00pm puncture 1 cap using device; one dose = 2 inhalations take 1 capsule by in halation once daily Spiriva HandiHaler 18 MCG 1 capsule [...] 0 Refills: 0 Ordered: 23-Jul-2022 DO Active digoxin [...] disorder] Onset: 08-10-2021 07-11-2022 Chronic Conduction disorders (9 sources) Unspecified right bundle-branch block; Translations: [Cardiac pacemaker in situ] Onset: 08-10-2021 05-04-2023 Chronic Congestive heart failure; nonhypertensive (3 sources) [...] [Long-term (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 of anticoagulants] Episodic Other aftercare (2 sources) Long-term current use of anticoagulant; Translations: [long-term (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 of anticoagulants] Onset: 03-25-2023 05-04-2023 Episodic Other aftercare (1 source) Taking high risk medication; Translations: [Other long term care social worker (current) drug therapy] Onset: 03-25-2023 03-25-2023 Episodic Other aftercare (2 sources) long-term (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 of anticoagulants; Translations: [terminal gauger supervisor (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 of anticoagulants] Onset: 03-25-2023 Episodic Other circulatory disease (3 sources) Low [...] Hypomagnesemia; Translations: [HYPOMAGNESEMIA] Onset: 08-10-2021 Chronic Other nutritional; endocrine; and metabolic disorders (2 sources) Overweight in adulthood with body mass index of 25 or more but less than 30; Translations: [Body mass index (BMI) 25.0-25.9, adult] Onset: 05-04-2023 05-04-2023 Episodic Other nutritional; endocrine; and metabolic disorders (2 sources) Body mass index (BMI) 25.0-25.9, adult; Translations: [Body mass index (BMI) 25.0-25.9, adult] Onset: 05-04-2023 Episodic Other screening for suspected conditions (not mental [...] of mental health and substance abuse codes (7 sources) Ex-smoker; Translations: [Personal history of tobacco use] Onset: 05-04-2023 05-04-2023 Episodic Substance-related disorders (3 sources) Nicotine dependence, cigarettes, uncomplicated; Translations: [Nicotine dependence, unspecified, uncomplicated] Onset: 08-10-2021 Chronic Unclassified (1 source) CONTACT W/AND (SUSP) EXPOS COVID-19; Translations: [CONTACT W/AND (SUSP) EXPOS COVID-19] Onset: 08-10-2021 Unclassified (1 source) Encounter for checking and testing of cardiac pacemaker pulse generator [battery]; Translations: [Encounter for checking and testing of cardiac pacemaker pulse generator [battery]] Onset: 10-18-2022 Unclassified (1 source) Acidosis, unspecified; Translations: [Acidosis, [...] 07-11-2022 07-13-2022 Episodic Other aftercare (1 source) long-term (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 of aspirin; Translations: [STATISTICAL ASSISTANT CURRENT USE OF ASPIRIN] Onset: 08-10-2021 Episodic Other aftercare (1 source) long-term (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 of antithrombotics/antip latelets; Translations: [[facility] ANTITHROMBOT/ANTIPLAT LETS] Onset: 08-10-2021 Episodic Other circulatory [...] D/T METHICILLIN UMM STAPH] Onset: 08-10-2021 Episodic Unclassified (1 source) Onset: 05-04-2023 05-04-2023 Results Test Name Value Interpretation Reference Range Facility ECG 12 [place] 05-04-2023 Sinus tachycardia Right bundle branch block Left posterior fascicular block Cannot exclude old inferior infarct QTc 462 ms [facility] Work Phone: [facility] Work Phone: Office Visit (Cardiology)on 11-10-2022 Follow-up visit Diagnoses/Problems [...] repair History of Pacemaker insertion 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 Vitals Vital Signs Recorded: [id number] 12:43PM Heart Rate77, Apical [id number], RUE, Sitting Diasto (more content not included)... Normal [employer] Tobacco Screening.on 023 Adult depression screening assessment No [facility] Satoris DO Work Phone: Fall risk assessment a) No falls within the last year [facility] db4objects 250 DO Work Phone: Tobacco use status [facility] b) No [facility] db[employer]objects 250 DO Work Phone: Office Visit (Cardiology)on 10-25-2022 Follow-up visit Diagnoses/Problems Assessed Paroxysmal atrial fibrillation (427.31) (I48.0) Anticoagulated (V58.61) (Z79.01) High risk medications (not anticoagulants) long-term use (V58.69) (Z79.899) Cardiac pacemaker (V45.01) (Z95.0) Echocardiogram abnormal (793.2) (R93.1) Body mass index (BMI) of 22.0 to 22.9 in adult (V85.1) (Z68.22) Orders Anticoagulated Complete Blood Count; Status:Active; Requested for:[id number]; Anticoagulated, Paroxysmal atrial fibrillation Start: Eliquis 5 MG Oral Tablet; Take 1 tablet twice daily Basic Metabolic Panel; Status:Active; Requested for:[id number]; Start: Metoprolol Succinate ER 25 MG Oral Tablet Extended Release 24 Hour (Toprol XL); TAKE 1 TABLET DAILY Complete Blood Count; Status:Active; Requested for:[id number]; TSH WITH REFLEX TO FREE T4 IF ABNORMAL; Status:Active; Requested for:[id number]; Unlinked Stop: Clopidogrel Bisulfate 75 MG Oral [...] contact the office if new symptoms arise. 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 Patient presents to the office ambulatory with steady gait. This is initial in clinic follow-up at [facility]. Patient reports remote history of iliac stenting in [place] and has been maintained on Plavix for 7 years, follows with vascular in [place]. Reports being hospitalized last year in [place] due to atrial fibrillation and started on Eliquis at that time, no antiarrhythmics. June 2022 [place] [facility] [place] to [place], seen in consult by [...] labs approximately 1 month ago at the . He was seen outpatient by vascular and [...] with anticoagu (more content not included)... Normal [facility] Tobacco Screening.on 023 Adult depression screening assessment No [facility] [employer]objects 250 DO Work Phone: Fall risk assessment a) No falls within the last year [facility] Heart-[employer] malena 250 DO Work Phone: Tobacco use status CPHS b) No [facility] Heart-[employer] malena 250 DO Work Phone: Radiologyon 10-18-2022 XR Chest [address] [facility] Heart-Sandu malena 250 DO Work Phone: XR chest 2V*on 10-18-2022 XR chest 2V* [facility] Main [place] [address] [place] [id number] XRay Report Signed Patient: Jaime Lechuga MR#: [id number] : 1955 Acct:[id number] Age/Sex: 67 / M ADM Date: 10/18/22 Loc: [facility] Room: Type: [facility] Attending Dr: Jaziel Gomez MD Copies to: [...] Carmen Jr., D.O.10/18/2022 3:35 PM Dictation Location: [facility]15 Transcribed By: [facility] 10/18/22 1535 Dictated By: Rasheed Carmen Jr, DO 10/18/22 1534 Signed By: 10/18/22 1535 Normal [facility] Basic Metabolic Panelon 05-2 Anion gap [Moles/Vol] 7.4 mmol/L Normal 6.0-15.0 [facility] Comment on above: Performed By: #### C BC, CMP #### [facility] [address] [place] [id number] [place] Calcium [Mass/Vol] 8.2 mg/dL Low 8.6-10.3 [facility] Comment on above: Performed By: #### C BC, CMP #### [facility] [address] [place] [address] [place] Chloride [Moles/Vol] 94 mmol/L Low 98-107 [facility] Comment on above: Performed By: #### C BC, CMP #### [facility] [address] [place] [address] [place] CO2 [Moles/Vol] 37.8 mmol/L High 21.0-31.0 [facility] Comment on above: Performed By: #### C BC, CMP #### [facility] [address] [place] [address] [place] Creatinine [Mass/Vol] 0.50 mg/dL Low 0.70-1.30 [facility] Comment on above: Performed By: #### C BC, CMP #### [place] [address] [place] Creatinine Clr Calc Pharmacy 87.88 [facility] Comment on above: Result Comment: PERF ORMED BY: [place] [address] PATHOLOGIST CLINICAL NURSE LEADER ABDIEL MTZ M.D. Performed By: #### C BC, CMP #### [place] [address] [place] GFR/1.73 sq M.predicted MDRD (S/P/Bld) [Vol rate/Area] mL/min/{1.73_m2} [facility] Comment on above: Performed By: #### C BC, CMP #### [address] Glucose [Mass/Vol] 96 mg/dL Normal 70-100 [facility] Comment on above: Result Comment: [facility] Glucose Reference Range is dependent on time and content of last meal. Glucose of more than 200 mg/dL in a nonstressed, ambulatory subject supports the diagnosis of Diabetes Mellitus. ADA recommended reference range Performed By: #### C BC, CMP #### [address] Potassium [Moles/Vol] 4.2 mmol/L Normal 3.5-5.1 [facility] Comment on above: Performed By: #### C BC, CMP #### [place] [address] [place] Sodium [Moles/Vol] 135 mmol/L Low 136-145 [facility] Comment on above: Performed By: #### C BC, CMP #### [place] [address] [place] Urea nitrogen [Mass/Vol] 9 mg/dL Normal 7-25 [facility] Comment on above: Performed By: #### C BC, CMP #### [place] [address] [place] Complete Blood Count Auto Di ffon 07-19-2022 Basophils (Bld) [#/Vol] 0.2 10*3/uL Normal 0.0-0.2 [facility] Comment on above: Result Comment: PERF ORMED BY: [place] [address] PATHOLOGIST CLINICAL NURSE LEADER ABDIEL MTZ M.D. Performed By: #### C BC, CMP #### [place] [address] [place] Basophils/100 WBC (Bld) 1.4 % Normal . F [facility] Comment on above: Performed By: #### C BC, CMP #### [place] [address] [place] Eosinophils (Bld) [#/Vol] 0.0 10*3/uL Normal 0.0-0.45 [facility] Comment on above: Performed By: #### C BC, CMP #### [address] Eosinophils/100 WBC (Bld) 0.0 % Normal . [facility] Comment on above: Performed By: #### C BC, CMP #### [address] Erythrocyte distribution width (RBC) [Ratio] 20.9 % High 12.0-14.8 [facility] Comment on above: Performed By: #### C BC, CMP #### [address] Hematocrit (Bld) [Volume fraction] 32.9 % Low 38.8-50.0 [facility] Comment on above: Performed By: #### C BC, CMP #### [place] [address] [place] Hemoglobin (Bld) [Mass/Vol] 10.1 g/dL Low 13.0-17.0 [facility] Comment on above: Performed By: #### C BC, CMP #### [address] Lymphocytes (Bld) [#/Vol] 1.5 10*3/uL Normal 1.00-4.8 [facility] Comment on above: Performed By: #### C BC, CMP #### [facility] [address] [place] [address] [place] Lymphocytes/100 WBC (Bld) 12.6 % Normal . [facility] Comment on above: Performed By: #### C BC, CMP #### [facility] [address] MCH (RBC) [Entitic mass] 25.3 pg Low 27.5-35.2 [facility] Comment on above: Performed By: #### C BC, CMP #### [facility] [address] MCV (RBC) [Entitic vol] 82.5 fL Low 83.5-101 F [facility] Comment on above: Performed By: #### C BC, CMP #### [facility] [address] Mean Corpuscular HGB Conc 30.7 g/dL Low 32.5-35.6 [facility] Comment on above: Performed By: #### C BC, CMP #### [facility] [address] [place] [address] [place] Monocytes (Bld) [#/Vol] 1.2 10*3/uL High 0.0-0.8 [facility] Comment on above: Performed By: #### C BC, CMP #### [facility] [address] [place] [address] [place] Monocytes/100 WBC (Bld) 9.8 % Normal . F [facility] Comment on above: Performed By: #### C BC, CMP #### [facility] [address] [place] [id number] [place] Neutrophils (Bld) [#/Vol] 9.2 10*3/uL High 1.8-7.7 [facility] Comment on above: Performed By: #### C BC, CMP #### [facility] [address] [place] [id number] [facility] Neutrophils/100 WBC (Bld) 76.2 % Normal . [facility] Comment on above: Performed By: #### C BC, CMP #### [facility] [address] NRBC% 0.0 /100{WBC} Normal 0-0.5 [facility] Comment on above: Performed By: #### C BC, CMP #### [facility] [address] Platelet mean volume (Bld) [Entitic vol] 8.5 fL Normal 6.6-10.1 [facility] Comment on above: Performed By: #### C BC, CMP #### [facility] [address] Platelets (Bld) [#/Vol] 152 10*3/uL Normal 150-450 [facility] Comment on above: Performed By: #### C BC, CMP #### [address] RBC (Bld) [#/Vol] 3.99 10*6/uL Normal 3.90-5.60 [facility] Comment on above: Performed By: #### C BC, CMP #### [address] WBC (Bld) [#/Vol] 12.1 10*3/uL High 4.1-10.5 [facility] Comment on above: Performed By: #### C BC, CMP #### [address] ECG 12 lead ECGon 07-19-2022 ECG 12 lead ECG [facility] [place] [address] Electrocardiograph Report Signed Patient: Jaime Lechuga MR#: [id number] : 1955 Acct:[id number] Age/Sex: 66 / M ADM Date: 07/10/22 Loc: Room: [address] [place] [address] Type: DIS IN Attending Dr: Elvis Villarreal [...] (247) on 07/20/2022 3:13:14 PM Referred By: NORasta Electronically Signed By:ADAIR DAI MD Transcribed By: MUS Signed By Adair Dai MD 1513 Normal [facility] Basic Metabolic Panelon 06-29 Anion gap [Moles/Vol] 8.2 mmol/L Normal 6.0-15.0 [facility] Comment on above: Performed By: #### C BC, CMP #### [facility] [address] [place] [address] [place] Calcium [Mass/Vol] 8.0 mg/dL Low 8.6-10.3 [facility] Comment on above: Performed By: #### C BC, CMP #### [facility] [address] [place] [address] [place] Chloride [Moles/Vol] 97 mmol/L Low 98-107 [facility] Comment on above: Performed By: #### C BC, CMP #### [facility] [address] [place] [address] [place] CO2 [Moles/Vol] 37.3 mmol/L High 21.0-31.0 [facility] Comment on above: Performed By: #### C BC, CMP #### [facility] [address] [place] [id number] [place] Creatinine [Mass/Vol] 0.48 mg/dL Low 0.70-1.30 [facility] Comment on above: Performed By: #### C BC, CMP #### [place] [address] [place] Creatinine Clr Calc Pharmacy 87.88 [facility] Comment on above: Result Comment: PERF ORMED BY: [place] [address] PATHOLOGIST CLINICAL NURSE LEADER ABDIEL MTZ M.D. Performed By: #### C BC, CMP #### [place] [address] [place] GFR/1.73 sq M.predicted MDRD (S/P/Bld) [Vol rate/Area] mL/min/{1.73_m2} Normal [facility] Comment on above: Performed By: #### C BC, CMP #### [address] Glucose [Mass/Vol] 94 mg/dL Normal 70-100 [facility] Comment on above: Result Comment: [place] Glucose Reference Range is dependent on time and content of last meal. Glucose of more than 200 mg/dL in a nonstressed, ambulatory subject supports the diagnosis of Diabetes Mellitus. ADA recommended reference range Performed By: #### C BC, CMP #### [place] [address] [place] Potassium [Moles/Vol] 4.5 mmol/L Normal 3.5-5.1 [facility] Comment on above: Performed By: #### C BC, CMP #### [place] [address] [place] Sodium [Moles/Vol] 138 mmol/L Normal 136-145 [facility] Comment on above: Performed By: #### C BC, CMP #### [place] [address] [place] Urea nitrogen [Mass/Vol] 12 mg/dL Normal 7-25 [facility] Comment on above: Performed By: #### C BC, CMP #### [address] Complete Blood Count Auto Di ffon 07-18-2022 Basophils (Bld) [#/Vol] 0.1 10*3/uL Normal 0.0-0.2 [facility] Comment on above: Result Comment: PERF ORMED BY: [place] [address] PATHOLOGIST CLINICAL NURSE LEADER ABDIEL MTZ M.D. Performed By: #### C BC, CMP #### [facility] [address] [place] [address] [place] Basophils/100 WBC (Bld) 1.1 % Normal . F [facility] Comment on above: Performed By: #### C BC, CMP #### [facility] [address] [place] [address] [place] Eosinophils (Bld) [#/Vol] 0.0 10*3/uL Normal 0.0-0.45 [facility] Comment on above: Performed By: #### C BC, CMP #### [place] [address] [place] Eosinophils/100 WBC (Bld) 0.2 % Normal . [facility] Comment on above: Performed By: #### C BC, CMP #### [address] Erythrocyte distribution width (RBC) [Ratio] 19.3 % High 12.0-14.8 [facility] Comment on above: Performed By: #### C BC, CMP #### [facility] [address] [place] [address] Hematocrit (Bld) [Volume fraction] 29.6 % Low 38.8-50.0 [facility] Comment on above: Performed By: #### C BC, CMP #### [facility] [address] [place] [address] [place] Hemoglobin (Bld) [Mass/Vol] 9.2 g/dL Low 13.0-17.0 [facility] Comment on above: Performed By: #### C BC, CMP #### [place] [address] [place] Lymphocytes (Bld) [#/Vol] 1.5 10*3/uL Normal 1.00-4.8 [facility] Comment on above: Performed By: #### C BC, CMP #### [facility] [address] [place] [address] [place] Lymphocytes/100 WBC (Bld) 16.5 % Normal . [facility] Comment on above: Performed By: #### C BC, CMP #### [facility] [address] MCH (RBC) [Entitic mass] 25.9 pg Low 27.5-35.2 [facility] Comment on above: Performed By: #### C BC, CMP #### [facility] [address] MCV (RBC) [Entitic vol] 83.4 fL Low 83.5-101 F [facility] Comment on above: Performed By: #### C BC, CMP #### [facility] [address] Mean Corpuscular HGB Conc 31.1 g/dL Low 32.5-35.6 [facility] Comment on above: Performed By: #### C BC, CMP #### [facility] [address] [place] [address] [place] Monocytes (Bld) [#/Vol] 1.1 10*3/uL High 0.0-0.8 [facility] Comment on above: Performed By: #### C BC, CMP #### [facility] [address] [place] [address] [place] Monocytes/100 WBC (Bld) 12.4 % Normal . F [facility] Comment on above: Performed By: #### C BC, CMP #### [facility] [address] [place] [address] [place] Neutrophils (Bld) [#/Vol] 6.2 10*3/uL Normal 1.8-7.7 [facility] Comment on above: Performed By: #### C BC, CMP #### [facility] [address] [place] [id number] [place] Neutrophils/100 WBC (Bld) 69.8 % Normal . [facility] Comment on above: Performed By: #### C BC, CMP #### [facility] [address] NRBC% 0.1 /100{WBC} Normal 0-0.5 [facility] Comment on above: Performed By: #### C BC, CMP #### [facility] [address] Platelet mean volume (Bld) [Entitic vol] 8.6 fL Normal 6.6-10.1 [facility] Comment on above: Performed By: #### C BC, CMP #### [facility] [address] Platelets (Bld) [#/Vol] 156 10*3/uL Normal 150-450 [facility] Comment on above: Performed By: #### C BC, CMP #### [address] RBC (Bld) [#/Vol] 3.55 10*6/uL Low 3.90-5.60 [facility] Comment on above: Performed By: #### C BC, CMP #### [address] WBC (Bld) [#/Vol] 8.8 10*3/uL Normal 4.1-10.5 [facility] Comment on above: Performed By: #### C KEVEN, CMP #### [address] ECG 12 lead ECGon 07-18-2022 ECG 12 lead ECG [facility] Main [place] [address] [place] [address] Electrocardiograph Report Signed Patient: Jamie Lechuga MR#: [id number] : 1955 Acct:[id number] Age/Sex: 66 / M ADM Date: 07/10/22 Loc: Room: [address] [place] [address] Type: DIS IN Attending Dr: Elvis Villarreal [...] By: MUS Signed By Adair Dai MD 1514 [facility] Hepatic Panelon 07-18-2022 Albumin [Mass/Vol] 2.8 g/dL Low 3.5-5.7 [facility] Comment on above: Performed By: #### C BC, CMP #### [facility] [address] Albumin/Globulin [Mass ratio] 1.0 {ratio} Normal [facility] Comment on above: Performed By: #### C BC, CMP #### [facility] [address] ALP [Catalytic activity/Vol] 129 U/L High 34-104 [facility] Comment on above: Performed By: #### C BC, CMP #### [facility] [address] ALT [Catalytic activity/Vol] 126 U/L High 7-52 [facility] Comment on above: Performed By: #### C BC, CMP #### [facility] [address] [place] [address] [place] AST [Catalytic activity/Vol] 29 U/L Normal 13-39 [facility] Comment on above: Performed By: #### C BC, CMP #### [facility] [address] Bilirubin [Mass/Vol] 0.6 mg/dL Normal 0.3-1.0 [facility] Comment on above: Performed By: #### C BC, CMP #### [facility] [address] Bilirubin,Indirect 0.5 mg/dL Normal [facility] Comment on above: Performed By: #### C BC, CMP #### [facility] [address] Bilirubin.indirect [Mass/Vol] 0.10 mg/dL Normal 0.03-0.18 [facility] Comment on above: Performed By: #### C BC, CMP #### [facility] [address] Globulin (S) [Mass/Vol] 2.9 g/dL Normal F [facility] Comment on above: Performed By: #### C BC, CMP #### [facility] [address] Protein [Mass/Vol] 5.7 g/dL Low 6.4-8.9 [facility] Comment on above: Performed By: #### C BC, CMP #### [address] Partial Thromboplastin Timeo n 07-18-2022 aPTT Coag (Bld) [Time] 27.8 s Normal 25.1-36.5 [facility] Comment on above: Result Comment: PERF ORMED BY: [place] [address] PATHOLOGIST CLINICAL NURSE LEADER BADIEL MTZ M.D. Performed By: #### P T, PTT ####[facility] Rny[address] Prothrombin Time INRon 07-18 INR Coag (PPP) [Relative time] 1.1 {INR} Normal [facility] Comment on above: Result Comment: [...] 4.5 Performed By: #### P T, PTT ####[address] [address] [facility] PT Coag (PPP) [Time] 13.0 s High 9.0-12.9 [facility] Comment on above: Performed By: #### P T, PTT ####[address] [address] [facility] Partial Thromboplastin Timeo n 07-17-2022 aPTT Coag (Bld) [Time] 31.1 s Normal 25.1-36.5 [facility] Comment on above: Result Comment: PERF ORMED BY: [place] [address] PATHOLOGIST CLINICAL NURSE LEADER ABDIEL MTZ M.D. Performed By: #### P TT, PT ####[address] [address] [facility] Prothrombin Time INRon 07-17 INR Coag (PPP) [Relative time] 1.1 {INR} Normal [facility] Comment on above: Result Comment: [...] 4.5 Performed By: #### P TT, PT ####[address] [address] [facility] PT Coag (PPP) [Time] 12.8 s Normal 9.0-12.9 [facility] Comment on above: Performed By: #### P TT, PT ####[place] [id number] [facility] XR chest 2V*on 07-17-2022 XR chest 2V* [facility] [place] [address] [place] [address] XRay Report Signed Patient: Jamie Lechuga MR#: [id number] : 1955 Acct:[id number] Age/Sex: 66 / M ADM Date: 07/10/22 Loc: Room: [address] [place] [address] Type: ADM IN Attending Dr: Benji Gamez [...] Srinivas Clemons M.D.07/17/2022 9:26 AM Dictation Location: [place] [address] Transcribed By: [facility] 07/17/22925 Dictated By: Srinivas Clemons DO 07/17/22922 Signed By: 07/17/22925 Normal [facility] Basic Metabolic Panelon 06-28 Anion gap [Moles/Vol] Not performed Normal 6.0-15.0 [facility] Comment on above: Performed By: #### C KEVEN, BMP ####[facility] [place] [id number] [facility] Calcium [Mass/Vol] 8.4 mg/dL Low 8.6-10.3 [facility] Comment on above: Performed By: #### C KEVEN, BMP ####[facility] Qft0630 [place] [id number] [facility] Chloride [Moles/Vol] 93 mmol/L Low 98-107 [facility] Comment on above: Performed By: #### C KEVEN, BMP ####[facility] [place] [phone] [facility] CO2 [Moles/Vol] mmol/L High 21.0-31.0 [facility] Comment on above: Performed By: #### C BC, BMP ####[place] [address] [place] [phone] [facility] Creatinine [Mass/Vol] 0.42 mg/dL Low 0.70-1.30 [facility] Comment on above: Performed By: #### C BC, BMP ####[place] [address] [place] [phone] [place] Creatinine Clr Calc Pharmacy 87.88 Normal [facility] Comment on above: Result Comment: PERF ORMED BY: [facility] [address] [place] [address] PATHOLOGIST CLINICAL NURSE LEADER ABDIEL MTZ M.D. Performed By: #### C BC, BMP ####[place] [id number] [address] GFR/1.73 sq M.predicted MDRD (S/P/Bld) [Vol rate/Area] mL/min/{1.73_m2} Normal [facility] Comment on above: Performed By: #### C BC, BMP ####[place] [id number] [facility] Glucose [Mass/Vol] 78 mg/dL Normal 70-100 [facility] Comment on above: Result Comment: [place] Glucose Reference Range is dependent on time and content of last meal. Glucose of more than 200 mg/dL in a nonstressed, ambulatory subject supports the diagnosis of Diabetes Mellitus. ADA recommended reference range Performed By: #### C BC, BMP ####[place] [address] [place] [phone] [facility] Potassium [Moles/Vol] 4.2 mmol/L Normal 3.5-5.1 [facility] Comment on above: Performed By: #### C BC, BMP ####[place] [address] [place] [phone] [facility] Sodium [Moles/Vol] 138 mmol/L Normal 136-145 [facility] Comment on above: Performed By: #### C BC, BMP ####[address] [address] [facility] Urea nitrogen [Mass/Vol] 5 mg/dL Low 7-25 [facility] Comment on above: Performed By: #### C BC, BMP ####[address] [address] [facility] Complete Blood Count Auto Di ffon 07-16-2022 Basophils (Bld) [#/Vol] 0.0 10*3/uL Normal 0.0-0.2 [facility] Comment on above: Result Comment: PERF ORMED BY: [facility] [address] [place] [address] PATHOLOGIST CLINICAL NURSE LEADER ABDIEL MTZ M.D. Performed By: #### C KEVEN, BMP ####[place] [id number] [facility] Basophils/100 WBC (Bld) 0.7 % Normal . F [facility] Comment on above: Performed By: #### C KEVEN, BMP ####[place] [id number] [facility] Eosinophils (Bld) [#/Vol] 0.0 10*3/uL Normal 0.0-0.45 [facility] Comment on above: Performed By: #### C BC, BMP ####[place] [id number] [facility] Eosinophils/100 WBC (Bld) 0.3 % Normal . [facility] Comment on above: Performed By: #### C BC, BMP ####[place] [id number] [facility] Erythrocyte distribution width (RBC) [Ratio] 17.9 % High 12.0-14.8 [facility] Comment on above: Performed By: #### C BC, BMP ####[place] [id number] [facility] Hematocrit (Bld) [Volume fraction] 31.4 % Low 38.8-50.0 [facility] Comment on above: Performed By: #### C BC, BMP ####[address] [place] [address] [facility] Hemoglobin (Bld) [Mass/Vol] 9.6 g/dL Low 13.0-17.0 [facility] Comment on above: Performed By: #### C KEVEN, BMP ####[place] [address] [place] [phone] [facility] Lymphocytes (Bld) [#/Vol] 1.7 10*3/uL Normal 1.00-4.8 [facility] Comment on above: Performed By: #### C KEVEN, BMP ####[place] [id number] [facility] Lymphocytes/100 WBC (Bld) 23.8 % Normal . [facility] Comment on above: Performed By: #### C KEVEN, BMP ####[place] [id number] [facility] MCH (RBC) [Entitic mass] 24.9 pg Low 27.5-35.2 [facility] Comment on above: Performed By: #### C KEVEN, BMP ####[place] [id number] [facility] MCV (RBC) [Entitic vol] 81.7 fL Low 83.5-101 F [facility] Comment on above: Performed By: #### C KEVEN, BMP ####[place] [id number] [facility] Mean Corpuscular HGB Conc 30.5 g/dL Low 32.5-35.6 [facility] Comment on above: Performed By: #### C KEVEN, BMP ####[place] [id number] [facility] Monocytes (Bld) [#/Vol] 0.9 10*3/uL High 0.0-0.8 [facility] Comment on above: Performed By: #### C KEVEN, BMP ####[place] [address] [place] [phone] [facility] Monocytes/100 WBC (Bld) 12.8 % Normal . [facility] Comment on above: Performed By: #### C KEVEN, BMP ####[facility] Mzu[address]158 [place] [address] [facility] Neutrophils (Bld) [#/Vol] 4.3 10*3/uL Normal 1.8-7.7 [facility] Comment on above: Performed By: #### C KEVEN, BMP ####[facility] [id number] [place] [address] [place] Neutrophils/100 WBC (Bld) 62.4 % Normal . [facility] Comment on above: Performed By: #### C KEVEN, BMP ####[facility] Pwr[address]23 [place] [address] [facility] NRBC% 0.3 /100{WBC} Normal 0-0.5 [facility] Comment on above: Performed By: #### C KEVEN, BMP ####[place] [address] [place] [address] [facility] Platelet mean volume (Bld) [Entitic vol] 8.8 fL Normal 6.6-10.1 [facility] Comment on above: Performed By: #### C KEVEN, BMP ####[facility] [id number] [place] [address] [place] Platelets (Bld) [#/Vol] 127 10*3/uL Low 150-450 [facility] Comment on above: Performed By: #### C KEVEN, BMP ####[facility] [place] [address] [facility] RBC (Bld) [#/Vol] 3.84 10*6/uL Low 3.90-5.60 [facility] Comment on above: Performed By: #### C KEVEN, BMP ####[facility] [place] [address] [facility] WBC (Bld) [#/Vol] 6.9 10*3/uL Normal 4.1-10.5 [facility] Comment on above: Performed By: #### C KEVEN, BMP ####[facility] [place] [address] [facility] ECG 12 lead ECGon 07-16-2022 ECG 12 lead ECG [facility] [place] [address] [place] [address] Electrocardiograph Report Signed Patient: Jaime Lechuga MR#: [id number] : 1955 Acct:[id number] Age/Sex: 66 / M ADM Date: 07/10/22 Loc: 4 Room: [address] [place] [address] Type: ADM IN Attending Dr: Benji Gamez [...] Issa Love MD 0 07/16/22 1535 Normal [facility] Partial Thromboplastin Timeo n 07-16-2022 aPTT Coag (Bld) [Time] 31.6 s Normal 25.1-36.5 [facility] Comment on above: Result Comment: PERF ORMED BY: [place] [address] PATHOLOGIST CLINICAL NURSE LEADER ABDIEL MTZ M.D. Performed By: #### C , CMP #### [address] Prothrombin Time INRon 07-16 INR Coag (PPP) [Relative time] 1.1 {INR} Normal [facility] Comment on above: Result Comment: [...] 3 - 4.5 Performed By: #### C KEVEN, CMP #### [facility] [address] [place] [id number] [facility] PT Coag (PPP) [Time] 12.8 s Normal 9.0-12.9 [facility] Comment on above: Performed By: #### C KEVEN, CMP #### [place] [id number] [facility] XR chest 1V portableon 07-16 XR chest 1V portable [facility] [place] [address] [place] [address] XRay Report Signed Patient: Jaime Lechuga MR#: [id number] : 1955 Acct:[id number] Age/Sex: 66 / M ADM Date: 07/10/22 Loc: Room: [address] [place] [address] Type: ADM IN Attending Dr: Benji Gamez [...] Gopal Mckinney M.D.07/16/2022 1:15 PM Dictation Location: [place] [address] Transcribed By: [facility] 07/16/22 1315 Dictated By: Gopal Mckinney II, MD 07/16/22 1311 Signed By: 07/16/22 1315 Normal [facility] Complete Blood Count Auto Di ffon 07-15-2022 Basophils (Bld) [#/Vol] 0.1 10*3/uL Normal 0.0-0.2 [facility] Comment on above: Result Comment: PERF ORMED BY: [place] [address] PATHOLOGIST CLINICAL NURSE LEADER ABDIEL MTZ M.D. Performed By: #### C BC, CMP #### [address] Basophils/100 WBC (Bld) 1.3 % Normal . [facility] Comment on above: Performed By: #### C BC, CMP #### [address] Eosinophils (Bld) [#/Vol] 0.0 10*3/uL Normal 0.0-0.45 [facility] Comment on above: Performed By: #### C BC, CMP #### [address] Eosinophils/100 WBC (Bld) 0.7 % Normal . [facility] Comment on above: Performed By: #### C BC, CMP #### [address] Erythrocyte distribution width (RBC) [Ratio] 17.8 % High 12.0-14.8 [facility] Comment on above: Performed By: #### C BC, CMP #### [address] Hematocrit (Bld) [Volume fraction] 27.6 % Low 38.8-50.0 [facility] Comment on above: Performed By: #### C BC, CMP #### [address] Hemoglobin (Bld) [Mass/Vol] 8.3 g/dL Low 13.0-17.0 [facility] Comment on above: Performed By: #### C BC, CMP #### [facility] [address] Lymphocytes (Bld) [#/Vol] 2.0 10*3/uL Normal 1.00-4.8 [facility] Comment on above: Performed By: #### C BC, CMP #### [facility] [address] Lymphocytes/100 WBC (Bld) 29.6 % Normal . [facility] Comment on above: Performed By: #### C BC, CMP #### [address] MCH (RBC) [Entitic mass] 24.5 pg Low 27.5-35.2 [facility] Comment on above: Performed By: #### C BC, CMP #### [address] MCV (RBC) [Entitic vol] 81.0 fL Low 83.5-101 F [facility] Comment on above: Performed By: #### C BC, CMP #### [address] Mean Corpuscular HGB Conc 30.2 g/dL Low 32.5-35.6 [facility] Comment on above: Performed By: #### C BC, CMP #### [place] [address] [place] Monocytes (Bld) [#/Vol] 0.8 10*3/uL Normal 0.0-0.8 [facility] Comment on above: Performed By: #### C BC, CMP #### [place] [address] [place] Monocytes/100 WBC (Bld) 11.3 % Normal . [facility] Comment on above: Performed By: #### C BC, CMP #### [address] Neutrophils (Bld) [#/Vol] 3.9 10*3/uL Normal 1.8-7.7 [facility] Comment on above: Performed By: #### C BC, CMP #### [facility] [address] Neutrophils/100 WBC (Bld) 57.1 % Normal . [facility] Comment on above: Performed By: #### C BC, CMP #### [facility] [address] NRBC% 0.4 /100{WBC} Normal 0-0.5 [facility] Comment on above: Performed By: #### C BC, CMP #### [facility] [address] Platelet mean volume (Bld) [Entitic vol] 8.8 fL Normal 6.6-10.1 [facility] Comment on above: Performed By: #### C BC, CMP #### [facility] [address] Platelets (Bld) [#/Vol] 132 10*3/uL Low 150-450 [facility] Comment on above: Performed By: #### C BC, CMP #### [address] RBC (Bld) [#/Vol] 3.40 10*6/uL Low 3.90-5.60 [facility] Comment on above: Performed By: #### C BC, CMP #### [facility] [address] WBC (Bld) [#/Vol] 6.8 10*3/uL Normal 4.1-10.5 [facility] Comment on above: Performed By: #### C BC, CMP #### [address] Comprehensive Metabolic Pane eunice 07-15-2022 Albumin [Mass/Vol] 2.8 g/dL Low 3.5-5.7 [facility] Comment on above: Performed By: #### C BC, CMP #### [address] Albumin/Globulin [Mass ratio] 1.0 {ratio} Normal [facility] Comment on above: Performed By: #### C BC, CMP #### [facility] [address] ALP [Catalytic activity/Vol] 144 U/L High 34-104 [facility] Comment on above: Performed By: #### C BC, CMP #### [facility] [address] ALT [Catalytic activity/Vol] 313 U/L High 7-52 [facility] Comment on above: Performed By: #### C BC, CMP #### [facility] [address] Anion gap [Moles/Vol] 4.0 mmol/L Low 6.0-15.0 [facility] Comment on above: Performed By: #### C BC, CMP #### [facility] [address] AST [Catalytic activity/Vol] 81 U/L High 13-39 [facility] Comment on above: Performed By: #### C BC, CMP #### [facility] [address] Bilirubin [Mass/Vol] 0.7 mg/dL Normal 0.3-1.0 [facility] Comment on above: Performed By: #### C BC, CMP #### [facility] [address] Calcium [Mass/Vol] 7.9 mg/dL Low 8.6-10.3 [facility] Comment on above: Performed By: #### C BC, CMP #### [facility] [address] [place] [address] [place] Chloride [Moles/Vol] 94 mmol/L Low 98-107 [facility] Comment on above: Performed By: #### C BC, CMP #### [facility] [address] CO2 [Moles/Vol] 43.3 mmol/L High 21.0-31.0 [facility] Comment on above: Performed By: #### C BC, CMP #### [facility] [address] Creatinine [Mass/Vol] 0.43 mg/dL Low 0.70-1.30 [facility] Comment on above: Performed By: #### C BC, CMP #### [facility] [address] Creatinine Clr Calc Pharmacy 87.88 [facility] Comment on above: Result Comment: PERF ORMED BY: [place] [address] PATHOLOGIST CLINICAL NURSE LEADER ABDIEL MTZ M.D. Performed By: #### C BC, CMP #### [address] GFR/1.73 sq M.predicted MDRD (S/P/Bld) [Vol rate/Area] mL/min/{1.73_m2} [facility] Comment on above: Performed By: #### C BC, CMP #### [address] Globulin (S) [Mass/Vol] 2.8 g/dL Normal [facility] Comment on above: Performed By: #### C BC, CMP #### [address] Glucose [Mass/Vol] 81 mg/dL Normal 70-100 [facility] Comment on above: Result Comment: [facility] Glucose Reference Range is dependent on time and content of last meal. Glucose of more than 200 mg/dL in a nonstressed, ambulatory subject supports the diagnosis of Diabetes Mellitus. ADA recommended reference range Performed By: #### C BC, CMP #### [address] Potassium [Moles/Vol] 4.3 mmol/L Normal 3.5-5.1 [facility] Comment on above: Performed By: #### C BC, CMP #### [address] Protein [Mass/Vol] 5.6 g/dL Low 6.4-8.9 [facility] Comment on above: Performed By: #### C BC, CMP #### [facility] [address] Sodium [Moles/Vol] 137 mmol/L Normal 136-145 [facility] Comment on above: Performed By: #### C BC, CMP #### [facility] 1111 [place] [id number] [facility] Urea nitrogen [Mass/Vol] 6 mg/dL Low 7-25 [facility] Comment on above: Performed By: #### C BC, CMP #### [facility] [address] ECG 12 lead ECGon 07-15-2022 ECG 12 lead ECG [facility] Main [place] [address] [place] [address] Electrocardiograph Report Signed Patient: Jaime Lechuga MR#: [id number] : 1955 Acct:[id number] Age/Sex: 66 / M ADM Date: 07/10/22 Loc: Room: [address] [place] [address] Type: ADM IN Attending Dr: Benji Gamez [...] by ISSA LOVE MD ([id number]) on 07/16/2022 3:35:31 PM Referred By: Electronically Signed By:ISSA LOVE MD Transcribed By: MUS Signed By Issa Love MD 0 07/16/22 1535 [facility] LeukoReduced RBCon LeukoReduced RBC TRANSFUSED 07/15/22 1824 [facility] Partial Thromboplastin Timeo n 07-15-2022 aPTT Coag (Bld) [Time] 29.9 s Normal 25.1-36.5 [facility] Comment on above: Result Comment: PERF ORMED BY: [facility] [address] [place] [address] PATHOLOGIST CLINICAL NURSE LEADER ABDIEL MTZ M.D. Performed By: #### P TT, PT ####[address] [address] [facility] Prothrombin Time INRon 07-15 INR Coag (PPP) [Relative time] 1.1 {INR} [facility] Comment on above: Result Comment: [...] 4.5 Performed By: #### P TT, PT ####[place] [id number] [facility] PT Coag (PPP) [Time] 13.0 s High 9.0-12.9 [facility] Comment on above: Performed By: #### P TT, PT ####[place] [id number] [facility] Type and Screenon 07-15-2022 ABO and Rh group Nom (Bld) Blood group A Rh(D) positive [facility] Comment on above: Order Comment: Trans fuse now? Y Number of units to transfuse now? 1 Result Comment: PERF ORMED BY: [facility] [address] [place] [address] PATHOLOGIST CLINICAL NURSE LEADER ABDIEL MTZ M.D. Arterial Blood Gason 023 ABG Base Excess 13.4 mmol/L High -3.0-3.0 [facility] Comment on above: Performed By: #### A BG ####Point of Care testing, ABG Frac Inspired O2 40 % [facility] Comment on above: Performed By: #### A BG ####Point of Care testing, ABG Oxygen Content 4.8 mmol/L Low 6.6-9.7 [facility] Comment on above: Performed By: #### A BG ####Point of Care testing, ABG Oxygen Saturation 86.8 % Low 95.0-100.0 [facility] Comment on above: Performed By: #### A BG ####Point of Care testing, ABG PCO2 69.4 mm[Hg] Off scale high 35.0-45.0 [facility] Comment on above: Performed By: #### A BG ####Point of Care testing, ABG PEEP 5 [facility] Comment on above: Performed By: #### A BG ####Point of Care testing, ABG PH 7.38 Normal 7.35-7.45 [facility] Comment on above: Performed By: #### A BG ####Point of Care testing, ABG PO2 52.3 mm[Hg] Low 80.0-100.0 [facility] Comment on above: Performed By: #### A BG ####Point of Care testing, ABG Pressure Support 10.0 [facility] Comment on above: Performed By: #### A BG ####Point of Care testing, CO2 [Moles/Vol] 42.5 mmol/L High 23.0-27.0 [facility] Comment on above: Performed By: #### A BG ####Point of Care testing, HCO3 (Bld) [Moles/Vol] 40.4 mmol/L High 23.0-29.0 [facility] Comment on above: Performed By: #### A BG ####Point of Care testing, Respiratory Critical [facility] Comment on above: Result Comment: Crit ical Value called on: 07/14/2022 at 04:54 PERFORMED BY: [facility] [address] [place] [address] PATHOLOGIST CLINICAL NURSE LEADER ABDIEL MTZ M.D. Performed By: #### A BG ####Point of Care testing, VBG Draw Site Right Radial Normal [facility] Comment on above: Performed By: #### A BG ####Point of Care testing, Complete Blood Count Auto Di ffon 07-14-2022 Basophils (Bld) [#/Vol] 0.1 10*3/uL Normal 0.0-0.2 [facility] Comment on above: Result Comment: PERF ORMED BY: [facility] [address] [place] [address] PATHOLOGIST CLINICAL NURSE LEADER ABDIEL MTZ M.D. Performed By: #### C MP, CBC ####[place] [id number] [facility] Basophils/100 WBC (Bld) 0.9 % Normal . F [facility] Comment on above: Performed By: #### C MP, CBC ####[place] [id number] [facility] Eosinophils (Bld) [#/Vol] 0.0 10*3/uL Normal 0.0-0.45 [facility] Comment on above: Performed By: #### C MP, CBC ####[place] [id number] [facility] Eosinophils/100 WBC (Bld) 0.2 % Normal . [facility] Comment on above: Performed By: #### C MP, CBC ####[place] [id number] [facility] Erythrocyte distribution width (RBC) [Ratio] 17.4 % High 12.0-14.8 [facility] Comment on above: Performed By: #### C MP, CBC ####[place] [id number] [facility] Hematocrit (Bld) [Volume fraction] 25.3 % Low 38.8-50.0 [facility] Comment on above: Performed By: #### C MP, CBC ####[address] [place] [address] [facility] Hemoglobin (Bld) [Mass/Vol] 7.7 g/dL Low 13.0-17.0 [facility] Comment on above: Performed By: #### C MP, CBC ####[place] [id number] [facility] Lymphocytes (Bld) [#/Vol] 1.2 10*3/uL Normal 1.00-4.8 [facility] Comment on above: Performed By: #### C MP, CBC ####[place] [id number] [facility] Lymphocytes/100 WBC (Bld) 15.4 % Normal . [facility] Comment on above: Performed By: #### C MP, CBC ####[place] [id number] [facility] MCH (RBC) [Entitic mass] 24.5 pg Low 27.5-35.2 [facility] Comment on above: Performed By: #### C MP, CBC ####[place] [id number] [facility] MCV (RBC) [Entitic vol] 81.0 fL Low 83.5-101 F [facility] Comment on above: Performed By: #### C MP, CBC ####[place] [id number] [facility] Mean Corpuscular HGB Conc 30.3 g/dL Low 32.5-35.6 [facility] Comment on above: Performed By: #### C MP, CBC ####[facility] [id number] [place], [place] [id number] [facility] Monocytes (Bld) [#/Vol] 0.9 10*3/uL High 0.0-0.8 [facility] Comment on above: Performed By: #### C MP, CBC ####[place] [id number] [facility] Monocytes/100 WBC (Bld) 11.6 % Normal . F [facility] Comment on above: Performed By: #### C MP, CBC ####[facility] Yqt[address]93 [place] [address] [facility] Neutrophils (Bld) [#/Vol] 5.4 10*3/uL Normal 1.8-7.7 [facility] Comment on above: Performed By: #### C MP, CBC ####[address] [address] [facility] Neutrophils/100 WBC (Bld) 71.9 % Normal . [facility] Comment on above: Performed By: #### C MP, CBC ####[place] [address] [place] [address] [facility] NRBC% 0.9 /100{WBC} High 0-0.5 [facility] Comment on above: Performed By: #### C MP, CBC ####[place] [address] [place] [address] [facility] Platelet mean volume (Bld) [Entitic vol] 9.8 fL Normal 6.6-10.1 [facility] Comment on above: Performed By: #### C MP, CBC ####[address] [address] [facility] Platelets (Bld) [#/Vol] 128 10*3/uL Low 150-450 [facility] Comment on above: Performed By: #### C MP, CBC ####[address] [address] [facility] RBC (Bld) [#/Vol] 3.12 10*6/uL Low 3.90-5.60 [facility] Comment on above: Performed By: #### C MP, CBC ####[address] [address] [facility] WBC (Bld) [#/Vol] 7.6 10*3/uL Normal 4.1-10.5 [facility] Comment on above: Performed By: #### C MP, CBC ####[address] [address] [facility] Comprehensive Metabolic Pane eunice 07-14-2022 Albumin [Mass/Vol] 2.7 g/dL Low 3.5-5.7 [facility] Comment on above: Performed By: #### C MP, CBC ####[facility] [place] [address] [facility] Albumin/Globulin [Mass ratio] 1.0 {ratio} Normal [facility] Comment on above: Performed By: #### C MP, CBC ####[facility] [place] [address] [facility] ALP [Catalytic activity/Vol] 142 U/L High 34-104 [facility] Comment on above: Performed By: #### C MP, CBC ####[place] [address] [place] [address] [facility] ALT [Catalytic activity/Vol] 387 U/L High 7-52 [facility] Comment on above: Performed By: #### C MP, CBC ####[facility] [place] [address] [facility] Anion gap [Moles/Vol] 3.2 mmol/L Low 6.0-15.0 [facility] Comment on above: Performed By: #### C MP, CBC ####[place] [address] [place] [address] [facility] AST [Catalytic activity/Vol] 117 U/L High 13-39 [facility] Comment on above: Performed By: #### C MP, CBC ####[facility] [place] [address] [facility] Bilirubin [Mass/Vol] 0.7 mg/dL Normal 0.3-1.0 [facility] Comment on above: Performed By: #### C MP, CBC ####[facility] [place] [address] [facility] Calcium [Mass/Vol] 7.4 mg/dL Low 8.6-10.3 [facility] Comment on above: Performed By: #### C MP, CBC ####[facility] [place] [address] [place] Chloride [Moles/Vol] 96 mmol/L Low 98-107 [facility] Comment on above: Performed By: #### C MP, CBC ####[facility] [place] [id number] [facility] CO2 [Moles/Vol] 42.4 mmol/L High 21.0-31.0 [facility] Comment on above: Performed By: #### C MP, CBC ####[place] [address] [place] [id number] [facility] Creatinine [Mass/Vol] 0.56 mg/dL Low 0.70-1.30 [facility] Comment on above: Performed By: #### C MP, CBC ####[place] [address] [place] [id number] [facility] Creatinine Clr Calc Pharmacy 87.88 Normal [facility] Comment on above: Result Comment: PERF ORMED BY: [facility] [address] [place] [address] PATHOLOGIST CLINICAL NURSE LEADER ABDIEL MTZ M.D. Performed By: #### C MP, CBC ####[address] GFR/1.73 sq M.predicted MDRD (S/P/Bld) [Vol rate/Area] mL/min/{1.73_m2} [facility] Comment on above: Performed By: #### C MP, CBC ####[place] [address] [place] [id number] [facility] Globulin (S) [Mass/Vol] 2.6 g/dL Normal [facility] Comment on above: Performed By: #### C MP, CBC ####[place] [id number] [facility] Glucose [Mass/Vol] 103 mg/dL High 70-100 [facility] Comment on above: Result Comment: [place] Glucose Reference Range is dependent on time and content of last meal. Glucose of more than 200 mg/dL in a nonstressed, ambulatory subject supports the diagnosis of Diabetes Mellitus. ADA recommended reference range Performed By: #### C MP, CBC ####[place] [id number] [facility] Potassium [Moles/Vol] 4.6 mmol/L Normal 3.5-5.1 [facility] Comment on above: Performed By: #### C MP, CBC ####[facility] Evh[address]116 [place] [address] [facility] Protein [Mass/Vol] 5.3 g/dL Low 6.4-8.9 [facility] Comment on above: Performed By: #### C MP, CBC ####[facility] Mwg[address] [place] [id number] [facility] Sodium [Moles/Vol] 137 mmol/L Normal 136-145 [facility] Comment on above: Performed By: #### C MP, CBC ####[facility] Kpv[address]153 [place] [address] [facility] Urea nitrogen [Mass/Vol] 11 mg/dL Normal 7-25 [facility] Comment on above: Performed By: #### C MP, CBC ####[facility] Vwe[address]99 [place] [id number] [facility] ECG 12 lead ECGon 07-14-2022 ECG 12 lead ECG [facility] Main [place] [address] [place] [address] Electrocardiograph Report Signed Patient: Jaime Lechuga MR#: [id number] : 1955 Acct:[id number] Age/Sex: 66 / M ADM Date: 07/10/22 Loc: Room: [address] [place] [address] Type: DIS IN Attending Dr: Elvis Villarreal [...] MUS Signed By Adair Dai MD 1512 [facility] ECG 12 lead ECG [facility] Main [place] [id number] Electrocardiograph Report Signed Patient: Jaime Lechuga MR#: [id number] : 1955 Acct:[id number] Age/Sex: 66 / M ADM Date: 07/10/22 Loc: Room: [address] [place] [address] Type: ADM IN Attending Dr: Benji Gamez [...] By Issa Love MD 0 07/14/22 1632 [facility] ECG 12 lead ECG [facility] Main [address] [address] Electrocardiograph Report Signed Patient: Jaime Lechuga MR#: [id number] : 1955 Acct:[id number] Age/Sex: 66 / M ADM Date: 07/10/22 Loc: 4 Room: 6X8472-1 Type: DIS IN Attending Dr: Elvis Villarreal [...] Signed By Adair Dai MD 1511 Normal [facility] Partial Thromboplastin Timeo n 07-14-2022 aPTT Coag (Bld) [Time] 29.0 s Normal 25.1-36.5 [facility] Comment on above: Result Comment: PERF ORMED BY: [place] [address] PATHOLOGIST CLINICAL NURSE LEADER ABDIEL MTZ M.D. Performed By: #### P T, PTT #### [facility] [address] [place] [address] Prothrombin Time INRon 07-14 INR Coag (PPP) [Relative time] 1.2 {INR} [facility] Comment on above: Result Comment: [...] 4.5 Performed By: #### P T, PTT #### [facility] [address] [place] [address] PT Coag (PPP) [Time] 13.8 s High 9.0-12.9 [facility] Comment on above: Performed By: #### P T, PTT #### [address] Coagulation Profileon 2022 aPTT Coag (Bld) [Time] 25.8 s Normal 25.1-36.5 [facility] Comment on above: Result Comment: PERF ORMED BY: [address] [place] [address] PATHOLOGIST CLINICAL NURSE LEADER ABDIEL MTZ M.D. Performed By: #### P T, PTT #### [address] INR Coag (PPP) [Relative time] 1.2 {INR} Normal [facility] Comment on above: Result Comment: [...] 4.5 Performed By: #### P T, PTT #### [address] PT Coag (PPP) [Time] 14.1 s High 9.0-12.9 [facility] Comment on above: Performed By: #### P T, PTT #### [address] Complete Blood Count Auto Di ffon 07-13-2022 Basophils (Bld) [#/Vol] 0.1 10*3/uL Normal 0.0-0.2 [facility] Comment on above: Performed By: #### P T, PTT #### [address] Basophils/100 WBC (Bld) 0.8 % Normal . F [facility] Comment on above: Performed By: #### P T, PTT #### [address] Eosinophils (Bld) [#/Vol] 0.0 10*3/uL Normal 0.0-0.45 [facility] Comment on above: Performed By: #### P T, PTT #### [facility] [address] Eosinophils/100 WBC (Bld) 0.4 % Normal . [facility] Comment on above: Performed By: #### P T, PTT #### [address] Erythrocyte distribution width (RBC) [Ratio] 17.6 % High 12.0-14.8 [facility] Comment on above: Performed By: #### P T, PTT #### [address] Hematocrit (Bld) [Volume fraction] 22.0 % Low 38.8-50.0 [facility] Comment on above: Performed By: #### P T, PTT #### [address] Hemoglobin (Bld) [Mass/Vol] 6.6 g/dL Low 13.0-17.0 [facility] Comment on above: Performed By: #### P T, PTT #### [address] Lymphocytes (Bld) [#/Vol] 1.1 10*3/uL Normal 1.00-4.8 [facility] Comment on above: Performed By: #### P T, PTT #### [address] Lymphocytes/100 WBC (Bld) 15.5 % Normal . [facility] Comment on above: Performed By: #### P T, PTT #### [address] MCH (RBC) [Entitic mass] 24.0 pg Low 27.5-35.2 [facility] Comment on above: Performed By: #### P T, PTT #### [address] MCV (RBC) [Entitic vol] 80.4 fL Low 83.5-101 F [facility] Comment on above: Performed By: #### P T, PTT #### [facility] [address] Mean Corpuscular HGB Conc 29.9 g/dL Low 32.5-35.6 [facility] Comment on above: Performed By: #### P T, PTT #### [facility] 1[address] [place] [address] [place] Monocytes (Bld) [#/Vol] 0.7 10*3/uL Normal 0.0-0.8 [facility] Comment on above: Performed By: #### P T, PTT #### [facility] 1[address] [place] [address] [place] Monocytes/100 WBC (Bld) 10.3 % Normal . F [facility] Comment on above: Performed By: #### P T, PTT #### [facility] [address] Neutrophils (Bld) [#/Vol] 5.2 10*3/uL Normal 1.8-7.7 [facility] Comment on above: Performed By: #### P T, PTT #### [facility] [address] Neutrophils/100 WBC (Bld) 73.0 % Normal . [facility] Comment on above: Performed By: #### P T, PTT #### [facility] [address] [place] [address] [place] NRBC% 0.5 /100{WBC} Normal 0-0.5 [facility] Comment on above: Performed By: #### P T, PTT #### [facility] [address] [place] [address] [place] Platelet mean volume (Bld) [Entitic vol] 9.4 fL Normal 6.6-10.1 [facility] Comment on above: Performed By: #### P T, PTT #### [facility] 1[address] [place] [address] [place] Platelets (Bld) [#/Vol] 128 10*3/uL Low 150-450 [facility] Comment on above: Performed By: #### P T, PTT #### [facility] [address] [place] [address] RBC (Bld) [#/Vol] 2.74 10*6/uL Low 3.90-5.60 [facility] Comment on above: Performed By: #### P T, PTT #### [facility] [address] [place] [address] WBC (Bld) [#/Vol] 7.1 10*3/uL Normal 4.1-10.5 [facility] Comment on above: Performed By: #### P T, PTT #### [facility] [address] [place] [address] Comprehensive Metabolic Pane eunice 07-13-2022 Albumin [Mass/Vol] 2.7 g/dL Low 3.5-5.7 [facility] Comment on above: Performed By: #### P T, PTT #### [address] Albumin/Globulin [Mass ratio] 1.0 {ratio} Normal [facility] Comment on above: Performed By: #### P T, PTT #### [facility] [address] [place] [address] ALP [Catalytic activity/Vol] 155 U/L High 34-104 [facility] Comment on above: Performed By: #### P T, PTT #### [facility] [address] [place] [address] ALT [Catalytic activity/Vol] 480 U/L High 7-52 [facility] Comment on above: Performed By: #### P T, PTT #### [facility] [address] [place] [address] Anion gap [Moles/Vol] 4.3 mmol/L Low 6.0-15.0 [facility] Comment on above: Performed By: #### P T, PTT #### [facility] [address] [place] [address] AST [Catalytic activity/Vol] 182 U/L High 13-39 [facility] Comment on above: Performed By: #### P T, PTT #### [facility] [address] [place] [address] [place] Bilirubin [Mass/Vol] 0.5 mg/dL Normal 0.3-1.0 [facility] Comment on above: Performed By: #### P T, PTT #### [facility] [address] Calcium [Mass/Vol] 7.3 mg/dL Low 8.6-10.3 [facility] Comment on above: Performed By: #### P T, PTT #### [facility] [address] Chloride [Moles/Vol] 98 mmol/L Normal 98-107 [facility] Comment on above: Performed By: #### P T, PTT #### [facility] [address] CO2 [Moles/Vol] 41.2 mmol/L High 21.0-31.0 [facility] Comment on above: Performed By: #### P T, PTT #### [facility] [address] Creatinine [Mass/Vol] 0.55 mg/dL Low 0.70-1.30 [facility] Comment on above: Performed By: #### P T, PTT #### [facility] 1[address] [place] [address] [place] Creatinine Clr Calc Pharmacy 87.88 [facility] Comment on above: Performed By: #### P T, PTT #### [facility] 1111 [place] [address] [place] GFR/1.73 sq M.predicted MDRD (S/P/Bld) [Vol rate/Area] mL/min/{1.73_m2} [facility] Comment on above: Performed By: #### P T, PTT #### [facility] 1[address] [place] [address] [place] Globulin (S) [Mass/Vol] 2.6 g/dL Normal [facility] Comment on above: Performed By: #### P T, PTT #### [facility] [address] Glucose [Mass/Vol] 103 mg/dL High 70-100 [facility] Comment on above: Result Comment: [facility] Glucose Reference Range is dependent on time and content of last meal. Glucose of more than 200 mg/dL in a nonstressed, ambulatory subject supports the diagnosis of Diabetes Mellitus. ADA recommended reference range Performed By: #### P T, PTT #### [facility] [address] Potassium [Moles/Vol] 4.5 mmol/L Normal 3.5-5.1 [facility] Comment on above: Performed By: #### P T, PTT #### [address] Protein [Mass/Vol] 5.3 g/dL Low 6.4-8.9 [facility] Comment on above: Performed By: #### P T, PTT #### [facility] [address] [place] [address] Sodium [Moles/Vol] 139 mmol/L Normal 136-145 [facility] Comment on above: Performed By: #### P T, PTT #### [address] Urea nitrogen [Mass/Vol] 14 mg/dL Normal 7-25 [facility] Comment on above: Performed By: #### P T, PTT #### [facility] [address] [place] [address] ECG 12 lead ECGon 07-13-2022 ECG 12 lead ECG [facility] Main [place] [address] [place] [address] Electrocardiograph Report Signed Patient: Jaime Lechuga MR#: [id number] : 1955 Acct:[id number] Age/Sex: 66 / M ADM Date: 07/10/22 Loc: Room: [address] [place] [address] Type: ADM IN Attending Dr: Benji Gamez [...] Issa Love MD 0 07/13/22 1249 Normal [place] [facility] Ferritinon 07-13-2022 Ferritin [Mass/Vol] 9.4 ng/mL Low 23.9-336.2 [facility] Comment on above: Performed By: #### P T, PTT #### [facility] [address] [place] [address] Ironon 07-13-2022 Iron [Mass/Vol] 11 ug/dL Low 50-212 [facility] Comment on above: Performed By: #### P T, PTT #### [facility] [address] [place] [address] Reticulocyte Counton 023 Reticulocyte Number 0.074 10*6/uL Normal 0.024-0 .08 4 [facility] Comment on above: Result Comment: PERF ORMED BY: [place] [address] PATHOLOGIST CLINICAL NURSE LEADER ABDIEL MTZ M.D. Performed By: #### P T, PTT #### [address] Reticulocyte Percent 2.7 % High 0.5-1.5 [facility] Comment on above: Performed By: #### P T, PTT #### [facility] [address] [place] [address] Total Iron Binding Capacityo n 07-13-2022 Total Iron Binding Capacity 421 ug/dL Normal 255-450 [facility] Comment on above: Performed By: #### P T, PTT #### [address] Transferrin [Mass/Vol] 301 mg/dL Normal 203-362 [facility] Comment on above: Performed By: #### P T, PTT #### [address] Vit. B12/Folate Profileon Cobalamin (Vitamin B12) [Mass/Vol] 676 pg/mL Normal 180-914 [facility] Comment on above: Performed By: #### P T, PTT #### [address] Folate 6.2 ng/mL Normal >5.9 [facility] Comment on above: Result Comment: Magaly te reference range: >5.9 ng/ml The WHO technical consultation on folate and vitamin b12 deficiencies has determined that folate concentrations less than 4 ng/ml are considered deficient. PERFORMED BY: [place] [address] PATHOLOGIST CLINICAL NURSE LEADER ABDIEL MTZ M.D. Performed By: #### P T, PTT #### [address] MAN Antinuclear Antibodieson 07-12-2022 Antinuclear Abs, IFA Negative Normal . [facility] Comment on above: Order Comment: GO @O UT TODAY Result Comment: Nega tive <1:80 Borderline 1:80 Positive >1:80 ICAP nomenclature: AC-0 For more information about Hep-2 cell patterns use ANApatterns.org, the official website for the International Consensus on Antinuclear Antibody (MAN) Patterns (ICAP). Performed at: - [facility] [id number] Crystal Finisher: Martin Lala PhD, Phone: [phone] Performed By: #### S MAB #### [facility] , Nablv-6-Ryigcvliyzq Phenotyp sal 07-12-2022 Alpha 1 Anti-Trypsin 129 mg/dL Normal 101-187 [facility] Comment on above: Order Comment: GO @O [place] TODAY Performed By: #### P T, PTT #### [facility] [address] Phenotype (P1) MZ Normal . [facility] Comment on above: Order Comment: GO @O [place] TODAY Result Comment: Phen otype Population A-1-AT [...] used to confirm phenotype. Performed at: - [address] [id number] Crystal Finisher: Martin Lala PhD, Phone: [phone] Performed at: [facility] [address] [id number] Crystal Finisher: Scott Dumont MD, Phone: [phone] Performed By: #### P T, PTT #### [facility] [address] [place] [id number] [facility] Arterial Blood Gason 023 ABG Base Excess 6.7 mmol/L High -3.0-3.0 [facility] Comment on above: Performed By: #### S MAB #### [facility] , ABG Frac Inspired O2 50 % Normal [facility] Comment on above: Performed By: #### S MAB #### [facility] , ABG Liter Flow 12 [facility] Comment on above: Performed By: #### S MAB #### [facility] , ABG Oxygen Content 4.9 mmol/L Low 6.6-9.7 [facility] Comment on above: Performed By: #### S MAB #### [facility] , ABG Oxygen Saturation 96.8 % Normal 95.0-100.0 [facility] Comment on above: Performed By: #### S MAB #### [facility] , ABG PCO2 85.3 mm[Hg] Off scale high 35.0-45.0 [facility] Comment on above: Performed By: #### S MAB #### [facility] , ABG PH 7.24 Low 7.35-7.45 [facility] Comment on above: Performed By: #### S MAB #### [facility] , ABG PO2 103.6 mm[Hg] High 80.0-100.0 [facility] Comment on above: Performed By: #### S MAB #### [facility] , CO2 [Moles/Vol] 38.1 mmol/L High 23.0-27.0 [facility] Comment on above: Performed By: #### S MAB #### [facility] , HCO3 (Bld) [Moles/Vol] 35.5 mmol/L High 23.0-29.0 [facility] Comment on above: Performed By: #### S MAB #### [facility] , Oxygen Device Venti Mask [facility] Comment on above: Performed By: #### S MAB #### [facility] , Respiratory Critical [facility] Comment on above: Result Comment: Crit ical Value called on: 07/12/2022 at 04:56 PERFORMED BY: [place] [address] [place] [address] PATHOLOGIST CLINICAL NURSE LEADER ABDIEL MTZ M.D. Performed By: #### S MAB #### [facility] , VBG Draw Site Left Radial Normal [facility] Comment on above: Performed By: #### S MAB #### [facility] , Ceruloplasminon 07-12-2022 Ceruloplasmin 39.9 mg/dL High 16.0-31.0 [facility] Comment on above: Order Comment: GO @O IA TODAY Result Comment: Perf ormed at: - [facility] [address] [id number] Crystal Finisher: Martin Lala PhD, Phone: [phone] PERFORMED BY: [place] [address] PATHOLOGIST CLINICAL NURSE LEADER ABDIEL MTZ M.D. Performed By: #### P T, PTT #### [address] Coagulation Profileon 2022 aPTT Coag (Bld) [Time] 28.1 s Normal 25.1-36.5 [facility] Comment on above: Result Comment: PERF ORMED BY: [place] [address] PATHOLOGIST CLINICAL NURSE LEADER ABDIEL MTZ M.D. Performed By: #### S MAB #### [facility] , INR Coag (PPP) [Relative time] 1.8 {INR} Normal [facility] Comment on above: Result Comment: [...] Coag (PPP) [Time] 20.8 s High 9.0-12.9 [facility] Comment on above: Performed By: #### S MAB #### [facility] , Complete Blood Count Auto Di ffon 07-12-2022 Basophils (Bld) [#/Vol] 0.0 10*3/uL Normal 0.0-0.2 [facility] Comment on above: Result Comment: PERF ORMED BY: [facility] [address] [place] [place] [id number] PATHOLOGIST CLINICAL NURSE LEADER ABDIEL MTZ M.D. Performed By: #### C BC, CMP ####[address] [address] [facility] Basophils/100 WBC (Bld) 0.4 % Normal . [facility] Comment on above: Performed By: #### C BC, CMP ####[address] [address] [facility] Eosinophils (Bld) [#/Vol] 0.0 10*3/uL Normal 0.0-0.45 [facility] Comment on above: Performed By: #### C BC, CMP ####[address] [address] [facility] Eosinophils/100 WBC (Bld) 0.1 % Normal . [facility] Comment on above: Performed By: #### C BC, CMP ####[address] [address] [facility] Erythrocyte distribution width (RBC) [Ratio] 17.7 % High 12.0-14.8 [facility] Comment on above: Performed By: #### C BC, CMP ####[address] [address] [facility] Hematocrit (Bld) [Volume fraction] 23.3 % Low 38.8-50.0 [facility] Comment on above: Performed By: #### C BC, CMP ####[address] [address] [facility] Hemoglobin (Bld) [Mass/Vol] 7.0 g/dL Low 13.0-17.0 [facility] Comment on above: Performed By: #### C BC, CMP ####[facility] [place] [id number] [facility] Lymphocytes (Bld) [#/Vol] 0.9 10*3/uL Low 1.00-4.8 [facility] Comment on above: Performed By: #### C BC, CMP ####[address] [address] [facility] Lymphocytes/100 WBC (Bld) 10.7 % Normal . [facility] Comment on above: Performed By: #### C BC, CMP ####[place] [id number] [facility] MCH (RBC) [Entitic mass] 24.1 pg Low 27.5-35.2 [facility] Comment on above: Performed By: #### C BC, CMP ####[place] [id number] [facility] MCV (RBC) [Entitic vol] 80.2 fL Low 83.5-101 F [facility] Comment on above: Performed By: #### C BC, CMP ####[place] [id number] [facility] Mean Corpuscular HGB Conc 30.0 g/dL Low 32.5-35.6 [facility] Comment on above: Performed By: #### C BC, CMP ####[place] [id number] [facility] Monocytes (Bld) [#/Vol] 0.7 10*3/uL Normal 0.0-0.8 [facility] Comment on above: Performed By: #### C BC, CMP ####[place] [id number] [facility] Monocytes/100 WBC (Bld) 7.6 % Normal . [facility] Comment on above: Performed By: #### C BC, CMP ####[place] [id number] [facility] Neutrophils (Bld) [#/Vol] 7.0 10*3/uL Normal 1.8-7.7 [facility] Comment on above: Performed By: #### C BC, CMP ####[place] [address] [place] [address] [facility] Neutrophils/100 WBC (Bld) 81.2 % Normal . [facility] Comment on above: Performed By: #### C BC, CMP ####[facility] [place] [address] [facility] NRBC% 0.9 /100{WBC} High 0-0.5 [facility] Comment on above: Performed By: #### C KEVEN, CMP ####[address] [address] [facility] Platelet mean volume (Bld) [Entitic vol] 9.5 fL Normal 6.6-10.1 [facility] Comment on above: Performed By: #### C KEVEN, CMP ####[address] [address] [facility] Platelets (Bld) [#/Vol] 136 10*3/uL Low 150-450 [facility] Comment on above: Performed By: #### C KEVEN, CMP ####[address] [address] [facility] RBC (Bld) [#/Vol] 2.90 10*6/uL Low 3.90-5.60 [facility] Comment on above: Performed By: #### C KEVEN, CMP ####[address] [address] [facility] WBC (Bld) [#/Vol] 8.6 10*3/uL Normal 4.1-10.5 [facility] Comment on above: Performed By: #### C KEVEN, CMP ####[address] [address] [facility] Comprehensive Metabolic Pane eunice 07-12-2022 Albumin [Mass/Vol] 2.8 g/dL Low 3.5-5.7 [facility] Comment on above: Performed By: #### C BC, CMP ####[address] [address] [facility] Albumin/Globulin [Mass ratio] 1.2 {ratio} Normal [facility] Comment on above: Performed By: #### C BC, CMP ####[facility] Nzo[address] [place] [address] [facility] ALP [Catalytic activity/Vol] 179 U/L High 34-104 [facility] Comment on above: Performed By: #### C BC, CMP ####[facility] Hyq[address] [place] [address] [facility] ALT [Catalytic activity/Vol] 687 U/L High 7-52 [facility] Comment on above: Performed By: #### C BC, CMP ####[facility] Yom[address]36 [place] [address] [facility] Anion gap [Moles/Vol] 4.0 mmol/L Low 6.0-15.0 [facility] Comment on above: Performed By: #### C BC, CMP ####[place] [address] [place] [address] [facility] AST [Catalytic activity/Vol] 446 U/L High 13-39 [facility] Comment on above: Performed By: #### C BC, CMP ####[facility] [place] [address] [facility] Bilirubin [Mass/Vol] 0.5 mg/dL Normal 0.3-1.0 [facility] Comment on above: Performed By: #### C BC, CMP ####[facility] [place] [address] [facility] Calcium [Mass/Vol] 7.1 mg/dL Low 8.6-10.3 [facility] Comment on above: Performed By: #### C BC, CMP ####[facility] Wsa[address]509 [place] [address] [place] Chloride [Moles/Vol] 101 mmol/L Normal 98-107 [facility] Comment on above: Performed By: #### C BC, CMP ####[facility] Dxw6511 [place] [address] [facility] CO2 [Moles/Vol] 38.5 mmol/L High 21.0-31.0 [facility] Comment on above: Performed By: #### C BC, CMP ####[place] [address] [place] [address] [facility] Creatinine [Mass/Vol] 0.68 mg/dL Significan t change down 0.70-1.30 [facility] Comment on above: Performed By: #### C BC, CMP ####[place] [address] [place] [address] [facility] Creatinine Clr Calc Pharmacy 87.88 Normal [facility] Comment on above: Result Comment: PERF ORMED BY: [facility] [address] [place] [address] PATHOLOGIST CLINICAL NURSE LEADER ABDIEL MTZ M.D. Performed By: #### C BC, CMP ####[address] GFR/1.73 sq M.predicted MDRD (S/P/Bld) [Vol rate/Area] mL/min/{1.73_m2} [facility] Comment on above: Performed By: #### C BC, CMP ####[place] [id number] [facility] Globulin (S) [Mass/Vol] 2.4 g/dL Normal [facility] Comment on above: Performed By: #### C BC, CMP ####[place] [id number] [facility] Glucose [Mass/Vol] 107 mg/dL High 70-100 [facility] Comment on above: Result Comment: [place] Glucose Reference Range is dependent on time and content of last meal. Glucose of more than 200 mg/dL in a nonstressed, ambulatory subject supports the diagnosis of Diabetes Mellitus. ADA recommended reference range Performed By: #### C BC, CMP ####[place] [id number] [facility] Potassium [Moles/Vol] 4.5 mmol/L Normal 3.5-5.1 [facility] Comment on above: Performed By: #### C BC, CMP ####[place] [id number] [facility] Protein [Mass/Vol] 5.2 g/dL Low 6.4-8.9 [facility] Comment on above: Performed By: #### C BC, CMP ####[facility] [place] [id number] [facility] Sodium [Moles/Vol] 139 mmol/L Normal 136-145 [facility] Comment on above: Performed By: #### C BC, CMP ####[facility] Gej[address] [place] [id number] [facility] Urea nitrogen [Mass/Vol] 25 mg/dL Normal 7-25 [facility] Comment on above: Performed By: #### C BC, CMP ####[facility] [address] [place] [id number] [facility] ECG 12 lead ECGon 07-12-2022 ECG 12 lead ECG [facility] Main [place] [address] [place] [address] Electrocardiograph Report Signed Patient: Jaime Lechuga MR#: [id number] : 1955 Acct:[id number] Age/Sex: 66 / M ADM Date: 07/10/22 Loc: Room: [address] [place] [address] Type: DIS IN Attending Dr: Elvis Villarreal [...] undetermined Abnormal ECG compared t prior of 12Jul2022 @11:40, the tacyharrhythmia is new. Confirmed by ADAIR DAI MD ([id number]) on 07/20/2022 3:11:05 PM Referred By: Electronically Signed By:ADAIR DAI MD Transcribed By: MUS Signed By Adair Dai MD 1511 [facility] ECG 12 lead ECG [facility] Main [place] [address] [place] [address] Electrocardiograph Report Signed Patient: Jaime Lechuga MR#: [id number] : 1955 Acct:[id number] Age/Sex: 66 / M ADM Date: 07/10/22 Loc: Room: [address] [place] [address] Type: DIS IN Attending Dr: Elvis Villarreal [...] MUS Signed By Adair Dai MD 1508 [facility] ECH echo transthoracicon [facility] echo transthoracic [facility] [place] [address] Echocardiogram Signed Patient: Jaime Lechuga MR#: [id number] : 1955 Acct:[id number] Age/Sex: 66 / M ADM Date: 07/10/22 Loc: Room: [address] [place] [address] Type: ADM IN Attending Dr: Benji Gamez DO Ordering Provider: Jaziel Gomez MD Date of Service: 07/11/22 ECH/ECH echo transthoracic: dyspnea Copies to: Jorge A Jimenez MD, [facility] Jaziel Gomez MD Height: 67.5 in Weight: 158 lb Performed By: Valentina Recker, RDCS BSA: 1.8 m2 BP: 128/62 mmHg [...] 75.7 cm/sec LV V1 VTI: 22.0 cm ___ Transcribed By: VAZQUEZ Performed At: 07/12/22 0724 Signed By: Jorge A Jimenez MD, [facility] 07/12/22 0955 Normal [facility] HCV Antibody Cascadeon 07-12 Hepatitis C Virus Antibody Non-Reactive Normal Non Reactive [facility] Comment on above: Order Comment: GO @O UT TODAY Performed By: #### P T, PTT #### [facility] [address] [place] [address] Interpretation Hepatitis C Normal . [facility] Comment on above: Order Comment: GO @O UT TODAY Result Comment: Not infected with HCV unless early or acute infection is suspected (which may be delayed in an immunocompromised individual), or other evidence exists to indicate HCV infection. Performed By: #### P T, PTT #### [address] HIV 1/O/2 Antigen/Antibodyon 07-12-2022 HIV Screen 4th Generation Non-Reactive Normal Non Reactive [facility] Comment on above: Order Comment: GO @O UT TODAY Result Comment: HIV Negative HIV-1/HIV-2 antibodies and HIV-1 p24 antigen were NOT detected. There is no laboratory evidence of HIV infection. Performed at: [facility] [address] [id number] Crystal Finisher: Martin Lala PhD, Phone: [phone] Performed By: #### S MAB #### [facility] , Hepatitis A Antibody IgMon 0 07-12-2022 Hepatitis A Antibody IgM Negative Normal Negative [facility] Comment on above: Order Comment: GO @O UT TODAY Result Comment: Perf ormed at: [employer] [id number] Crystal Finisher: Martin Lala PhD, Phone: [phone] Performed By: #### P T, PTT #### [address] Hepatitis A Antibody Totalon 07-12-2022 Hepatitis A Antibody Total Negative Normal Negative [facility] Comment on above: Order Comment: GO @O UT TODAY Performed By: #### P T, PTT #### [facility] [address] Hepatitis B Core Antibodyon 07-12-2022 Hepatitis B Core Antibody Negative Normal Negative [facility] Comment on above: Order Comment: GO @O UT TODAY Performed By: #### P T, PTT #### [facility] [address] Hepatitis B Surface Ab, Daniel ton 07-12-2022 Hepatitis B Surface Ab, Quant <3.1 Low Immunity>9 .9 [facility] Comment on above: Order Comment: GO @O UT TODAY Result Comment: Stat us of Immunity Anti-HBs Level Inconsistent with Immunity 0.0 - 9.9 Consistent with Immunity >9.9 PERFORMED BY: [place] [address] PATHOLOGIST CLINICAL NURSE LEADER ABDIEL MTZ M.D. Performed By: #### P T, PTT #### [facility] [address] [place] [address] Hepatitis B Surface Antigeno n 07-12-2022 HBsAg Screen Negative Normal Negative [facility] Comment on above: Order Comment: GO @O UT TODAY Performed By: #### P T, PTT #### [facility] [address] [place] [address] Hereditary Hemochromatosis,D NAon 07-12-2022 Hereditary Hemochromatosis Normal [facility] Comment on above: Order Comment: GO @O UT TODAY Result Comment: Resu lt: c.845G>A (p.Hnw130Ngo) - Not Detected c.187C>G (p.Kbf68Dmq) - Not Detected c.193A>T (p.Pqt36Kjx) - Not Detected Not associated with increased [...] for patients who are homozygous for c.845G>A (p.Tow069Mnu) and have yet to experience clinical symptoms. Comments: The most common HFE variants associated with hereditary hemochromatosis are c.845G>A (p.Tro720Vpq), c.187C>G (p.Xwl61Azp), c.193A>T (p.Rrq37Xed). While patients homozygous for c.845G>A (p.Jaz709Uov) are the most likely to present clinical symptoms, less than 10% develop clinically significant iron overload with tissue and organ damage. Genetic counseling is recommended to discuss the potential clinical implications of positive results, as well as recommendations for testing family members. Genetic Coordinators are available for health care providers to discuss results at [phone]). Test Details: Three variants analyzed: c.845G>A (p.Rkh400Ofy), commonly referred to as C282Y c.187C>G (p.Xdm49Elm), commonly referred to as H63D c.193A>T (p.Ewp79Phy), commonly referred to as S65C Methods/Limitations: DNA [...] developed and its performance characteristics determined by [employer]. It has not been cleared or approved by the Food and Drug Administration. References: Lux BR, Harry PC, Lamar KV, Joaquim LW, Tianna ; [employer] Liver Diseases. Diagnosis and management of hemochromatosis: 2011 practice guideline by the [employer] Liver [employer]. Hepatology. 2011 Aug;54(1):328-43. doi: 10.1002/hep.46121. PMID: 85795719; PMCID: API8270039. Jimmie G, Dillon P, Elen DW, Memo H, Shelly O, Han S, Keenan I, Tyrel M, Angel S. [facility] best practice guidelines for the molecular genetic diagnosis of hereditary hemochromatosis (HH). Eur J Hum [place]. 2016 May;24(4):479-95. doi: 10.1038/ejhg.2015.128. Epub 2014Sep 04. PMID: 02592447; PMCID: [id number]. Reviewed by: 03 Qiana Lin, PhD Director, Molecular Genetics Performing Labs 01: - [facility] [address], [address] Dir: Martin Lala, PhD 02: BN - [facility] [address], [address] Dir: Scott Dumont MD 03: - [facility] [address] [place], [address] Dir: Avi Matthew [facility] For Inquiries, the physician may contact Branch: [phone] Lab: [phone] PERFORMED BY: [facility] Cecelia [place] [address] PATHOLOGIST CLINICAL NURSE LEADER ABDIEL MTZ M.D. Performed By: #### S MAB #### [facility] , Immunoglobulin Chuy 3 Immunoglobulin G 939 mg/dL Normal 603-1613 [facility] Comment on above: Order Comment: GO @O [place] TODAY Result Comment: Perf ormed at: [facility] [address] [id number] Crystal Finisher: Martin Lala PhD, Phone: [phone] Performed By: #### S MAB #### [facility] , Liver-Kidney Microsomal Abon 07-12-2022 Liver-Kidney Microsomal Ab <1.0 Normal 0.0-20.0 [facility] Comment on above: Order Comment: GO @O [place] TODAY Result Comment: Nega tive 0.0 - 20.0 Equivocal 20.1 - 24.9 Positive >24.9 LKM type 1 antibodies are detected in patients with autoimmune hepatitis type 2 and in up to 8% of patients with chronic HCV infection. Performed By: #### S MAB #### [facility] , Mitochondrial (M2) Antibodyo n 07-12-2022 Mitochondrial (M2) Antibody <20.0 Normal 0.0-20.0 [facility] Comment on above: Order Comment: GO @O [place] TODAY Result Comment: Nega tive 0.0 - 20.0 Equivocal 20.1 - 24.9 Positive >24.9 Mitochondrial (M2) Antibodies are found in 90-96% of patients with primary biliary cirrhosis. Performed at: [place] [address] Crystal Finisher: Martin Lala PhD, Phone: [phone] Performed By: #### P T, PTT #### [address] Smooth Muscle Antibodyon Smooth Muscle Antibody 14 Normal 0-19 [facility] Comment on above: Order Comment: GO @O [place] TODAY Result Comment: Nega tive 0 - 19 Weak positive 20 - 30 Moderate to strong positive >30 Actin Antibodies are found in 52-85% of patients with autoimmune hepatitis or chronic active hepatitis and in 22% of patients with primary biliary cirrhosis. Performed at: [place] [address] [place] Finisher: Martin Lala PhD, Phone: [phone] PERFORMED BY: [place] [address] PATHOLOGIST CLINICAL NURSE LEADER ABDIEL MTZ M.D. Performed By: #### S MAB #### [facility] , XR chest 1V portableon 07-12 XR chest 1V portable [facility] Main [place] [address] [place] [address] XRay Report Signed Patient: Jaime Lechuga MR#: [id number] : 1955 Acct:[id number] Age/Sex: 66 / M ADM Date: 07/10/22 Loc: Room: [address] [place] [address] Type: ADM IN Attending Dr: Elvis Villarreal [...] Gopal Mckinney M.D.07/12/2022 8:08 AM Dictation Location: [place] [address] Transcribed By: [facility] 07/12/22807 Dictated By: Gopal Mckinney II, MD 07/12/22805 Signed By: 07/12/22 0808 Normal [facility] B-Type Natriuretic Peptideon 07-11-2022 Natriuretic peptide B (Bld) [Mass/Vol] 849.0 pg/mL High 5-100 [facility] Comment on above: Order Comment: Comme nt Add on to previous lab draw Result Comment: PERF ORMED BY: [place] [id number] PATHOLOGIST CLINICAL NURSE LEADER ABDIEL MTZ M.D. Performed By: #### B CRAFT SUPERINTENDENT ####[facility] [id number] [place] [id number] [facility] CT abdomen pelvis wo conon 0 07-11-2022 CT abdomen pelvis wo con [facility] Main [place] [address] [place] [address] Scan Report Signed Patient: Jaime Lechuga MR#: [id number] : 1955 Acct:[id number] Age/Sex: 66 / M ADM Date: 07/10/22 Loc: Room: [address] [place] [address] Type: ADM IN Attending Dr: Elvis Villarreal MD Copies to: MD Iris Colunga MD Ordering Provider: Iris Holliday MD Date of Service: 07/10/22 CT/CT abdomen pelvis wo con: Rule out dissection ([id number]) CT/CT chest wo con: Rule out dissection [...] the right lower lobe posteriorly. Follow-up per [facility] guidelines is recommended. Intra-abdominal ascites is noted. No bowel obstruction or obstructive uropathy. There is evidence of previous stenting of the left common iliac artery. Impression dictated by: Gopal Mckinney M.D.07/11/2022 9:34 AM Dictation Location: [place] [address] Transcribed By: [facility] 07/11/22933 Dictated By: Gopal Mckinney II, MD 07/11/22904 Signed By: 07/11/2234 [facility] CT head/brain wo conon 07-11 CT head/brain wo con [facility] Main [place] [address] [place] [address] CT Scan Report Signed Patient: Jaime Lechuga MR#: [id number] : 1955 Acct:[id number] Age/Sex: 66 / M ADM Date: 07/10/22 Loc: Room: [address] [place] [address] Type: ADM IN Attending Dr: Elvis Villarreal [...] Gopal Mckinney M.D.07/11/2022 8:20 AM Dictation Location: [place] [address] Transcribed By: [facility] 07/11/22819 Dictated By: Gopal Mckinney II, MD 07/11/22 0816 Signed By: 07/11/22819 Normal [facility] Coagulation Profileon 2022 aPTT Coag (Bld) [Time] 29.5 s Normal 25.1-36.5 [facility] Comment on above: Result Comment: PERF ORMED BY: [facility] [address] [place] [address] PATHOLOGIST CLINICAL NURSE LEADER ABDIEL MTZ M.D. Performed By: #### S MAB #### [facility] , INR Coag (PPP) [Relative time] 3.1 {INR} Normal [facility] Comment on above: Result Comment: [...] Coag (PPP) [Time] 36.0 s High 9.0-12.9 [facility] Comment on above: Performed By: #### S MAB #### [facility] , Complete Blood Count Auto Di ffon 07-11-2022 Basophils (Bld) [#/Vol] 0.1 10*3/uL Normal 0.0-0.2 [facility] Comment on above: Result Comment: PERF ORMED BY: [facility] [address] [place] [address] PATHOLOGIST CLINICAL NURSE LEADER ABDIEL MTZ M.D. Performed By: #### C BC, CMP, MG ####[place] [address] [place] [address] [facility] Basophils/100 WBC (Bld) 0.6 % Normal . [facility] Comment on above: Performed By: #### C BC, CMP, MG ####[place] [address] [place] [address] [facility] Eosinophils (Bld) [#/Vol] 0.0 10*3/uL Normal 0.0-0.45 [facility] Comment on above: Performed By: #### C BC, CMP, MG ####[place] [id number] [facility] Eosinophils/100 WBC (Bld) 0.1 % Normal . [facility] Comment on above: Performed By: #### C BC, CMP, MG ####[place] [address] [place] [address] [facility] Erythrocyte distribution width (RBC) [Ratio] 17.6 % High 12.0-14.8 [facility] Comment on above: Performed By: #### C BC, CMP, MG ####[place] [address] [place] [phone] [facility] Hematocrit (Bld) [Volume fraction] 23.2 % Low 38.8-50.0 [facility] Comment on above: Performed By: #### C BC, CMP, MG ####[facility] [place] [address] [facility] Hemoglobin (Bld) [Mass/Vol] 7.1 g/dL Low 13.0-17.0 [facility] Comment on above: Performed By: #### C BC, CMP, MG ####[place] [address] [place] [id number] [facility] Lymphocytes (Bld) [#/Vol] 1.1 10*3/uL Normal 1.00-4.8 [facility] Comment on above: Performed By: #### C BC, CMP, MG ####[place] [address] [place] [id number] [facility] Lymphocytes/100 WBC (Bld) 8.9 % Normal . [facility] Comment on above: Performed By: #### C BC, CMP, MG ####[place] [id number] [facility] MCH (RBC) [Entitic mass] 23.9 pg Low 27.5-35.2 [facility] Comment on above: Performed By: #### C BC, CMP, MG ####[place] [id number] [facility] MCV (RBC) [Entitic vol] 78.6 fL Low 83.5-101 F [facility] Comment on above: Performed By: #### C BC, CMP, MG ####[place] [id number] [facility] Mean Corpuscular HGB Conc 30.4 g/dL Low 32.5-35.6 [facility] Comment on above: Performed By: #### C BC, CMP, MG ####[place] [id number] [place] Monocytes (Bld) [#/Vol] 1.1 10*3/uL High 0.0-0.8 [facility] Comment on above: Performed By: #### C BC, CMP, MG ####[place] [id number] [place] Monocytes/100 WBC (Bld) 8.8 % Normal . [facility] Comment on above: Performed By: #### C BC, CMP, MG ####[address] Neutrophils (Bld) [#/Vol] 9.8 10*3/uL High 1.8-7.7 [facility] Comment on above: Performed By: #### C BC, CMP, MG ####[place] [id number] [facility] Neutrophils/100 WBC (Bld) 81.6 % Normal . [facility] Comment on above: Performed By: #### C BC, CMP, MG ####[address] NRBC% 0.5 /100{WBC} Normal 0-0.5 [facility] Comment on above: Performed By: #### C BC, CMP, MG ####[address] Platelet mean volume (Bld) [Entitic vol] 9.6 fL Normal 6.6-10.1 [facility] Comment on above: Performed By: #### C BC, CMP, MG ####[place] [id number] [facility] Platelets (Bld) [#/Vol] 147 10*3/uL Low 150-450 [facility] Comment on above: Performed By: #### C BC, CMP, MG ####[place] [id number] [facility] RBC (Bld) [#/Vol] 2.96 10*6/uL Low 3.90-5.60 [facility] Comment on above: Performed By: #### C BC, CMP, MG ####[place] [id number] [facility] WBC (Bld) [#/Vol] 12.0 10*3/uL High 4.1-10.5 [facility] Comment on above: Performed By: #### C BC, CMP, MG ####[place] [id number] [facility] Comprehensive Metabolic Pane eunice 07-11-2022 Albumin [Mass/Vol] 2.8 g/dL Low 3.5-5.7 [facility] Comment on above: Performed By: #### C BC, CMP, MG ####[facility] [place] [address] [facility] Albumin/Globulin [Mass ratio] 1.1 {ratio} Normal [facility] Comment on above: Performed By: #### C BC, CMP, MG ####[facility] [place] [address] [facility] ALP [Catalytic activity/Vol] 204 U/L High 34-104 [facility] Comment on above: Performed By: #### C BC, CMP, MG ####[place] [address] [place] [address] [facility] ALT [Catalytic activity/Vol] 804 U/L High 7-52 [facility] Comment on above: Performed By: #### C BC, CMP, MG ####[place] [address] [place] [address] [facility] Anion gap [Moles/Vol] 11.1 mmol/L Normal 6.0-15.0 [facility] Comment on above: Performed By: #### C BC, CMP, MG ####[place] [address] [place] [address] [facility] AST [Catalytic activity/Vol] 1033 U/L High 13-39 [facility] Comment on above: Performed By: #### C BC, CMP, MG ####[place] [address] [place] [address] [facility] Bilirubin [Mass/Vol] 0.8 mg/dL Normal 0.3-1.0 [facility] Comment on above: Performed By: #### C BC, CMP, MG ####[facility] [place] [address] [facility] Calcium [Mass/Vol] 6.9 mg/dL Low 8.6-10.3 [facility] Comment on above: Performed By: #### C BC, CMP, MG ####[facility] [place] [phone] [facility] Chloride [Moles/Vol] 100 mmol/L Normal 98-107 [facility] Comment on above: Performed By: #### C BC, CMP, MG ####[place] [address] [place] [phone] [facility] CO2 [Moles/Vol] 30.7 mmol/L Normal 21.0-31.0 [facility] Comment on above: Performed By: #### C BC, CMP, MG ####[place] [address] Creatinine [Mass/Vol] 1.66 mg/dL Significan t change up 0.70-1.30 [facility] Comment on above: Performed By: #### C BC, CMP, MG ####[place] [address] Creatinine Clr Calc Pharmacy 42.35 [facility] Comment on above: Performed By: #### C BC, CMP, MG ####[place] [address] [place] [phone] [facility] GFR/1.73 sq M.predicted MDRD (S/P/Bld) [Vol rate/Area] 45.184 mL/min/{1.73_m2} Normal [facility] Comment on above: Performed By: #### C BC, CMP, MG ####[place] [address] [place] [phone] [facility] Globulin (S) [Mass/Vol] 2.5 g/dL Normal [facility] Comment on above: Performed By: #### C BC, CMP, MG ####[place] [address] [place] [phone] [facility] Glucose [Mass/Vol] 88 mg/dL Normal 70-100 [facility] Comment on above: Result Comment: [place] Glucose Reference Range is dependent on time and content of last meal. Glucose of more than 200 mg/dL in a nonstressed, ambulatory subject supports the diagnosis of Diabetes Mellitus. ADA recommended reference range Performed By: #### C BC, CMP, MG ####[place] [address] [place] [address] [facility] Potassium [Moles/Vol] 4.8 mmol/L Normal 3.5-5.1 [facility] Comment on above: Performed By: #### C BC, CMP, MG ####[place] [address] [place] [address] [facility] Protein [Mass/Vol] 5.3 g/dL Low 6.4-8.9 [facility] Comment on above: Performed By: #### C BC, CMP, MG ####[place] [address] [place] [phone] [facility] Sodium [Moles/Vol] 137 mmol/L Normal 136-145 [facility] Comment on above: Performed By: #### C BC, CMP, MG ####[place] [id number] [facility] Urea nitrogen [Mass/Vol] 53 mg/dL High 7-25 [facility] Comment on above: Performed By: #### C BC, CMP, MG ####[place] [id number] [facility] Creatine Kinaseon 07-11-2022 CK [Catalytic activity/Vol] 146 U/L Normal 30-223 [facility] Comment on above: Performed By: #### S MAB #### [facility] , CK [Catalytic activity/Vol] 66 U/L Normal 30-223 [facility] Comment on above: Performed By: #### H S TROP, CK ####[place] [id number] [facility] Creatinine, Urine (Random)on 07-11-2022 Creatinine, Urine (Random) 163.0 mg/dL High 14.0-26.0 [facility] Comment on above: Order Comment: Comme nt add on Result Comment: PERF ORMED BY: [facility] [address] [place] [address] PATHOLOGIST CLINICAL NURSE LEADER ABDIEL MTZ M.D. Performed By: #### U CREA, UROSMO, UEOS ####[place] [address] [place] [address] [facility] Dipstick and Microscopicon 0 07-11-2022 Appearance (U) Cloudy Critically abnormal Clear [facility] Comment on above: Order Comment: Name Collection Type:: Moeller Catheter Performed By: #### C UU, ADDONUAPLUS ####[address] [address] [facility] Bacteria,Urine None Seen Normal None Seen [facility] Comment on above: Order Comment: Name Collection Type:: Moeller Catheter Performed By: #### C UU, ADDONUAPLUS ####[address] [address] [place] Bilirubin,Urine 1+ High Negative [facility] Comment on above: Order Comment: Name Collection Type:: Moeller Catheter Performed By: #### C UU, ADDONUAPLUS ####[address] [address] [facility] Color (U) Dark Yellow Critically abnormal Yellow [facility] Comment on above: Order Comment: Name Collection Type:: Moeller Catheter Performed By: #### C UU, ADDONUAPLUS ####[address] [address] [facility] Glucose Ql (U) Normal Normal Normal [facility] Comment on above: Order Comment: Name Collection Type:: Moeller Catheter Performed By: #### C UU, ADDONUAPLUS ####[address] [address] [place] Hyaline Casts,Urine 9-19 High 0-8 [facility] Comment on above: Order Comment: Name Collection Type:: Moeller Catheter Result Comment: PERF ORMED BY: [facility] [address] [place] [id number] PATHOLOGIST CLINICAL NURSE LEADER ABDIEL MTZ M.D. Performed By: #### C UU, ADDONUAPLUS ####[address] [address] [facility] Ketones Ql (U) Trace High Negative [facility] Comment on above: Order Comment: Name Collection Type:: Moeller Catheter Performed By: #### C UU, ADDONUAPLUS ####[place] [id number] [facility] Leukocyte esterase Test strip Ql (U) 1+ High Negative [facility] Comment on above: Order Comment: Name Collection Type:: Moeller Catheter Performed By: #### C UU, ADDONUAPLUS ####[place] [id number] [facility] Nitrite,Urine Negative Normal Negative [facility] Comment on above: Order Comment: Name Collection Type:: Moeller Catheter Performed By: #### C UU, ADDONUAPLUS ####[address] Occult Blood,Urine Negative Normal Negative [facility] Comment on above: Order Comment: Name Collection Type:: Moeller Catheter Result Comment: PERF ORMED BY: [facility] [address] [place] [address] PATHOLOGIST CLINICAL NURSE LEADER ABDIEL MTZ M.D. Performed By: #### C UU, ADDONUAPLUS ####[place] [id number] [facility] pH (U) 5.0 [pH] Normal 5.0-9.0 [facility] Comment on above: Order Comment: Name Collection Type:: Moeller Catheter Performed By: #### C UU, ADDONUAPLUS ####[place] [id number] [facility] Protein (U) [Mass/Vol] 100 mg/dL High Negative [facility] Comment on above: Order Comment: Name Collection Type:: Moeller Catheter Performed By: #### C UU, ADDONUAPLUS ####[place] [id number] [facility] RBC,Urine 5-9 High 0-4 [facility] Comment on above: Order Comment: Name Collection Type:: Moeller Catheter Performed By: #### C UU, ADDONUAPLUS ####[place] [id number] [facility] Renal Epithelial Cells,Urine 3-4 High 0-1 [facility] Comment on above: Order Comment: Name Collection Type:: Moeller Catheter Performed By: #### C UU, ADDONUAPLUS ####[address] [address] [facility] Specificy [place],Urine 1.020 Normal 1.00 1-1.03 0 [facility] Comment on above: Order Comment: Name Collection Type:: Moeller Catheter Performed By: #### C UU, ADDONUAPLUS ####[address] [address] [facility] Squamous Epithelial Cell,Urine 3-4 High 0-2 [facility] Comment on above: Order Comment: Name Collection Type:: Moeller Catheter Performed By: #### C UU, ADDONUAPLUS ####[address] [address] [facility] Urobilinogen,Urine Normal Normal Normal [facility] Comment on above: Order Comment: Name Collection Type:: Moeller Catheter Performed By: #### C UU, ADDONUAPLUS ####[address] [address] [facility] WBC,Urine 5-9 High 0-4 [facility] Comment on above: Order Comment: Name Collection Type:: Moeller Catheter Performed By: #### C UU, ADDONUAPLUS ####[address] [address] [facility] ECG 12 lead ECGon 07-11-2022 ECG 12 lead ECG [facility] Main [place] [address] [place] [address] Electrocardiograph Report Signed Patient: Jaime Lechuga MR#: [id number] : 1955 Acct:[id number] Age/Sex: 66 / M ADM Date: 07/10/22 Loc: Room: [address] [place] [address] Type: ADM IN Attending Dr: Elvis Villarreal [...] 11:31:04 AM Referred By: Electronically Signed By:SRINIVAS MRATIN DO Transcribed By: MUS Signed By Srinivas Martin DO 07/11 1131 Normal [facility] Eosinophil,Urineon 3 Eosinophil,Urine 0 % Normal 0-1 [facility] Comment on above: Order Comment: Comme nt add on Result Comment: PERF ORMED BY: [address] [place] [id number] PATHOLOGIST CLINICAL NURSE LEADER ABDIEL MTZ M.D. Performed By: #### U CREA, UROSMO, UEOS ####[place] [address] [place] [address] [facility] Lactic Acidon 07-11-2022 Lactate [Moles/Vol] 2.9 mmol/L Off scale high 0.5-2.2 [facility] Comment on above: Result Comment: Crit ical Result : Called to and read back by: HEBERT QUISPE at: 07/11/2022 00:43:09 by:[id number] PERFORMED BY: [facility] [address] [place] [place] [id number] PATHOLOGIST CLINICAL NURSE LEADER ABDIEL MTZ M.D. Performed By: #### L ACTIC ####[address] [address] [facility] Lactic Acid Reflexon 023 Lactic Acid Reflex 0.5 mmol/L Normal 0.5-2.2 [facility] Comment on above: Result Comment: PERF ORMED BY: [address] [place] [address] PATHOLOGIST CLINICAL NURSE LEADER ABDIEL MTZ M.D. Performed By: #### L ACTIC RFX ####[address] [address] [place] Magnesiumon 07-11-2022 Magnesium [Mass/Vol] 2.0 mg/dL Normal 1.9-2.7 [facility] Comment on above: Result Comment: PERF ORMED BY: [facility] [address] [place] [address] PATHOLOGIST CLINICAL NURSE LEADER ABDIEL MTZ M.D. Performed By: #### C BC, CMP, MG ####[place] [id number] [facility] Osmolality, Urineon 07-12-19 23 Osmolality, Urine 492 mosm Normal 250-900 [facility] Comment on above: Order Comment: Comme nt add on Result Comment: PERF ORMED BY: [facility] [address] [place] [address] PATHOLOGIST CLINICAL NURSE LEADER ABDIEL MTZ M.D. Performed By: #### U CREA, UROSMO, UEOS ####[place] [id number] [facility] Sodium, Urineon 07-11-2022 Sodium (U) [Moles/Vol] 39.0 mmol/L Normal F [facility] Comment on above: Order Comment: Comme nt add on Result Comment: No r eference range established PERFORMED BY: [place] [address] PATHOLOGIST CLINICAL NURSE LEADER ABDIEL MTZ M.D. Performed By: #### U RNA ####[place] [id number] [place] Troponin I High Sensitivityo n 07-11-2022 Troponin I High Sensitivity 43.8 pg/mL High 0.0-20.0 [facility] Comment on above: Result Comment: PERF ORMED BY: [facility] [address] [place] [address] PATHOLOGIST CLINICAL NURSE LEADER ABDIEL MTZ M.D. Performed By: #### S MAB #### [facility] , Troponin I High Sensitivity 52.4 pg/mL Off scale high 0.0-20.0 [facility] Comment on above: Result Comment: Crit ical Result : Called to and read back by: CANDY PEREIRA at: 07/11/2022 03:27:35 by:[id number] PERFORMED BY: [place] [address] PATHOLOGIST CLINICAL NURSE LEADER ABDIEL MTZ M.D. Performed By: #### H S TROP, CK ####[facility] [id number] [place] [id number] [facility] US abdomen limitedon 023 US abdomen limited [facility] Main [place] [address] [place] [address] Ultrasound Report Signed Patient: Jaime Lechuga MR#: [id number] : 1955 Acct:[id number] Age/Sex: 66 / M ADM Date: 07/10/22 Loc: Room: [address] [place] [address] Type: ADM IN Attending Dr: Elvis Villarreal [...] Gopal Mckinney M.D.07/11/2022 10:17 AM Dictation Location: [place] [address] Tech: Linette Russell Transcribed By: DOMENIC 07/11/22 1017 Dictated By: Gopal Mckinney II, MD 07/11/22 1015 Signed By: 07/11/22 1017 [facility] Urine Cultureon 07-11-2022 Bacteria identified Cx Nom (U) <9,000 colonies/ml mixed bacterial skin contaminants 2 Days PERFORMED BY: [place] [address] PATHOLOGIST CLINICAL NURSE LEADER ABDIEL MTZ M.D. [facility] Comment on above: Performed By: #### C UU, ADDONUAPLUS ####[facility] XR chest 1V portableon 07-11 XR chest 1V portable [facility] Main [place] [address] [place] [address] XRay Report Signed Patient: Jaime Lechuga MR#: [id number] : 1955 Acct:[id number] Age/Sex: 66 / M ADM Date: 07/10/22 Loc: Room: [address] [place] [address] Type: ADM IN Attending Dr: Elvis Villarreal [...] Gopal Mckinney M.D.07/11/2022 10:45 AM Dictation Location: [facility]-13 Transcribed By: DOMENIC 07/11/22 1045 Dictated By: Gopal Mckinney II, MD 07/11/22 1044 Signed By: 07/11/22 1045 [facility] XR chest 1V portable [facility] Main [address] [address] XRay Report Signed Patient: Jaime Lechuga MR#: [id number] : 1955 Acct:[id number] Age/Sex: 66 / M ADM Date: 07/10/22 Loc: Room: [address] [place] [address] Type: ADM IN Attending Dr: Elvis Villarreal [...] Gopal Mckinney M.D.07/11/2022 7:33 AM Dictation Location: [facility]13 Transcribed By: DOMENIC 07/11/22 0733 Dictated By: Gopal Mckinney II, MD 07/11/22 0731 Signed By: 07/11/22 0733 [facility] ABO/Rh Retypeon 07-10-2022 ABO/RH Recheck Result Positive Normal [facility] Comment on above: Result Comment: PERF ORMED BY: [address] [address] PATHOLOGIST CLINICAL NURSE LEADER ABDIEL MTZ M.D. Activated partial thrombopla stin time (aPTT) in platelet poor plasma by coagulation aOrdered By: Iris Holliday on 07-10-2022 aPTT Coag (PPP) [Time] 28.7 s 25.1-36.5 [facility] Alanine aminotransferase [En zymatic activity/volume] in Serum or PlasmaOrdered By: Iris Holliday on 07-10-2022 ALT [Catalytic activity/Vol] 615 U/L 7-52 [facility] Albumin [Mass/volume] in Ser um or Plasma by Bromocresol green (BCG) dye binding methoOrdered By: Iris Holliday on 07-10-2022 Albumin BCG dye [Mass/Vol] 3.3 g/dL 3.5-5.7 [facility] Alkaline phosphatase [Enzyma tic activity/volume] in Serum or PlasmaOrdered By: Iris Holliday on 07-10-2022 ALP [Catalytic activity/Vol] 235 U/L 34-104 [facility] Anisocytosis LM Ql (Bld)Orde red By: Iris Holliday on 07-10-2022 Anisocytosis Ql (Bld) Slight [facility] Arterial Blood Gason 023 ABG Base Excess -0.2 mmol/L Normal -3.0-3.0 [facility] Comment on above: Performed By: #### A BG ####Point of Care testing, ABG Frac Inspired O2 28 % [facility] Comment on above: Performed By: #### A BG ####Point of Care testing, ABG Liter Flow 2 [facility] Comment on above: Performed By: #### A BG ####Point of Care testing, ABG Oxygen Content 4.4 mmol/L Low 6.6-9.7 [facility] Comment on above: Performed By: #### A BG ####Point of Care testing, ABG Oxygen Saturation 82.7 % Low 95.0-100.0 [facility] Comment on above: Performed By: #### A BG ####Point of Care testing, ABG PCO2 48.0 mm[Hg] High 35.0-45.0 [facility] Comment on above: Performed By: #### A BG ####Point of Care testing, ABG PH 7.35 Normal 7.35-7.45 [facility] Comment on above: Performed By: #### A BG ####Point of Care testing, ABG PO2 54.7 mm[Hg] Low 80.0-100.0 [facility] Comment on above: Performed By: #### A BG ####Point of Care testing, CO2 [Moles/Vol] 27.1 mmol/L High 23.0-27.0 [facility] Comment on above: Performed By: #### A BG ####Point of Care testing, HCO3 (Bld) [Moles/Vol] 25.7 mmol/L Normal 23.0-29.0 [facility] Comment on above: Performed By: #### A BG ####Point of Care testing, Oxygen Device Nasal Cannula [facility] Comment on above: Performed By: #### A BG ####Point of Care testing, Respiratory Critical [facility] Comment on above: Result Comment: Crit ical Value called on: 07/10/2022 at 20:40 PERFORMED BY: [facility] [address] [place] [address] PATHOLOGIST CLINICAL NURSE LEADER ABDIEL MTZ M.D. Performed By: #### A BG ####Point of Care testing, VBG Draw Site Left Radial [facility] Comment on above: Performed By: #### A BG ####Point of Care testing, ABG Base Excess -3.2 mmol/L Low -3.0-3.0 [facility] Comment on above: Performed By: #### A BG ####Point of Care testing, ABG Frac Inspired O2 28 % [facility] Comment on above: Performed By: #### A BG ####Point of Care testing, ABG Liter Flow 2 [facility] Comment on above: Performed By: #### A BG ####Point of Care testing, ABG Oxygen Content 4.1 mmol/L Low 6.6-9.7 [facility] Comment on above: Performed By: #### A BG ####Point of Care testing, ABG Oxygen Saturation 77.6 % Low 95.0-100.0 [facility] Comment on above: Performed By: #### A BG ####Point of Care testing, ABG PCO2 44.3 mm[Hg] Normal 35.0-45.0 [facility] Comment on above: Performed By: #### A BG ####Point of Care testing, ABG PH 7.33 Low 7.35-7.45 [facility] Comment on above: Performed By: #### A BG ####Point of Care testing, ABG PO2 50.8 mm[Hg] Low 80.0-100.0 [facility] Comment on above: Performed By: #### A BG ####Point of Care testing, CO2 [Moles/Vol] 24.0 mmol/L Normal 23.0-27.0 [facility] Comment on above: Performed By: #### A BG ####Point of Care testing, HCO3 (Bld) [Moles/Vol] 22.6 mmol/L Low 23.0-29.0 [facility] Comment on above: Performed By: #### A BG ####Point of Care testing, Oxygen Device Nasal Cannula [facility] Comment on above: Performed By: #### A BG ####Point of Care testing, Respiratory Critical [facility] Comment on above: Result Comment: Crit ical Value called on: 07/10/2022 at 20:30 PERFORMED BY: [facility] [address] [place] [address] PATHOLOGIST CLINICAL NURSE LEADER ABDIEL MTZ M.D. Performed By: #### A BG ####Point of Care testing, VBG Draw Site Right Radial Normal [facility] Comment on above: Performed By: #### A BG ####Point of Care testing, Aspartate aminotransferase [ Enzymatic activity/volume] in Serum or PlasmaOrdered By: Iris Holliday on 07-10-2022 AST [Catalytic activity/Vol] 789 U/L 13-39 [facility] Automated erythrocytes count in urine sediment (number/area)Ordered By: Iris Holliday on 07-10-2022 RBC Auto (Urine sed) [#/Area] 5-9 [HPF] 0-4 [facility] Automated leukocytes count i n urine sediment (number/area)Ordered By: Iris Holliday on 07-10-2022 WBC Auto (Urine sed) [#/Area] 5-9 [HPF] 0-4 [facility] Basophils Auto (Bld) [#/Vol] Ordered By: Iris Holliday on 07-10-2022 Basophils (Bld) [#/Vol] 0.1 10*3/uL 0.0-0.2 [facility] Basophils/100 WBC Auto (Bld) Ordered By: Iris Holliday on 07-10-2022 Basophils/100 WBC (Bld) 0.6 % . [facility] Bilirubin Test strip Ql (U)O rdered By: Iris Holliday on 07-10-2022 Bilirubin Ql (U) 1+ Negative [facility] Bilirubin.total [Mass/volume ] in Serum or PlasmaOrdered By: Iris Holliday on 07-10-2022 Bilirubin [Mass/Vol] 1.3 mg/dL 0.3-1.0 [facility] Comment on above: Samples from patient s who have taken Naproxen have shown spurious elevation in Total Bilirubin levels. A metabolite of Naproxen, O-desmethylnaproxen, has been shown to interfere with the Melissa-Jenny method for measuring Total Bilirubin. Blood Cultureon 07-10-2022 Bacteria identified Cx Nom (Bld) NO GROWTH 5 DAYS PERFORMED BY: [facility] [address] [place] [address] PATHOLOGIST CLINICAL NURSE LEADER ABDIEL MTZ M.D. Normal [facility] Comment on above: Performed By: #### C UBLD, DIG ####[facility] [id number] [place] [address] [facility] Calcium [Mass/volume] in Ser um or PlasmaOrdered By: Iris Holliday on 07-10-2022 Calcium [Mass/Vol] 7.1 mg/dL 8.6-10.3 [facility] Carbon dioxide, total [Moles /volume] in Serum or PlasmaOrdered By: Iris Holliday on 07-10-2022 CO2 [Moles/Vol] 26.6 mmol/L 21.0-31.0 [facility] Chloride [Moles/volume] in S aakash or PlasmaOrdered By: Iris Holliday on 07-10-2022 Chloride [Moles/Vol] 93 mmol/L 98-107 [facility] Color Auto (U)Ordered By: Cindy tonymarissa Mg on 07-10-2022 Color (U) Dark yellow Yellow [facility] Comprehensive Metabolic Pane eunice 07-10-2022 Albumin [Mass/Vol] 3.3 g/dL Low 3.5-5.7 [facility] Comment on above: Performed By: #### C BC, CMP #### [facility] [address] [place] [id number] [facility] Albumin/Globulin [Mass ratio] 1.0 {ratio} Normal [facility] Comment on above: Performed By: #### C BC, CMP #### [facility] [address] [place] [address] [facility] ALP [Catalytic activity/Vol] 235 U/L High 34-104 [facility] Comment on above: Performed By: #### C BC, CMP #### [facility] [address] [place] [address] [place] ALT [Catalytic activity/Vol] 615 U/L High 7-52 [facility] Comment on above: Performed By: #### C BC, CMP #### [facility] [address] [place] [address] [facility] Anion gap [Moles/Vol] 17.9 mmol/L High 6.0-15.0 [facility] Comment on above: Performed By: #### C BC, CMP #### [facility] [address] [place] [address] [place] AST [Catalytic activity/Vol] 789 U/L High 13-39 [facility] Comment on above: Performed By: #### C BC, CMP #### [facility] [address] [place] [address] [place] Bilirubin [Mass/Vol] 1.3 mg/dL High 0.3-1.0 [facility] Comment on above: Result Comment: Samp les from patients who have taken Naproxen have shown spurious elevation in Total Bilirubin levels. A metabolite of Naproxen, O-desmethylnaproxen, has been shown to interfere with the Jendrassik-Grof method for measuring Total Bilirubin. Performed By: #### C BC, CMP #### [address] Calcium [Mass/Vol] 7.1 mg/dL Low 8.6-10.3 [facility] Comment on above: Performed By: #### C BC, CMP #### [address] Chloride [Moles/Vol] 93 mmol/L Low 98-107 [facility] Comment on above: Performed By: #### C BC, CMP #### [address] CO2 [Moles/Vol] 26.6 mmol/L Normal 21.0-31.0 [facility] Comment on above: Performed By: #### C BC, CMP #### [address] Creatinine [Mass/Vol] 2.17 mg/dL High 0.70-1.30 [facility] Comment on above: Performed By: #### C BC, CMP #### [address] Creatinine Clr Calc Pharmacy 31.35 [facility] Comment on above: Performed By: #### C BC, CMP #### [address] GFR/1.73 sq M.predicted MDRD (S/P/Bld) [Vol rate/Area] 32.762 mL/min/{1.73_m2} [facility] Comment on above: Performed By: #### C BC, CMP #### [address] Globulin (S) [Mass/Vol] 3.2 g/dL Normal [facility] Comment on above: Performed By: #### C BC, CMP #### [address] Glucose [Mass/Vol] 110 mg/dL High 70-100 [facility] Comment on above: Result Comment: [facility] Glucose Reference Range is dependent on time and content of last meal. Glucose of more than 200 mg/dL in a nonstressed, ambulatory subject supports the diagnosis of Diabetes Mellitus. ADA recommended reference range Performed By: #### C BC, CMP #### [facility] [address] [place] [id number] [place] Potassium [Moles/Vol] 5.5 mmol/L High 3.5-5.1 [facility] Comment on above: Performed By: #### C BC, CMP #### [facility] [address] Protein [Mass/Vol] 6.5 g/dL Normal 6.4-8.9 [facility] Comment on above: Performed By: #### C BC, CMP #### [facility] [address] [place] [id number] [place] Sodium [Moles/Vol] 132 mmol/L Low 136-145 [facility] Comment on above: Performed By: #### C BC, CMP #### [facility] [address] [place] [id number] [place] Urea nitrogen [Mass/Vol] 59 mg/dL High 7-25 [facility] Comment on above: Performed By: #### C BC, CMP #### [facility] [address] [place] [address] [place] Creatine Kinaseon 07-10-2022 CK [Catalytic activity/Vol] 53 U/L Normal 30-223 [facility] Comment on above: Performed By: #### C BC, CMP #### [facility] [address] [place] [address] [place] Creatine kinase [Enzymatic a ctivity/volume] in Serum or PlasmaOrdered By: Iris Holliday on 07-10-2022 CK [Catalytic activity/Vol] 53 U/L 30-223 [facility] Creatinine [Mass/volume] in Serum or PlasmaOrdered By: Iris Holliday on 07-10-2022 Creatinine [Mass/Vol] 2.17 mg/dL 0.70-1.30 [facility] D-Dimer High Sensitivityon 0 07-10-2022 D-Dimer High Sensitivity 1944 ng/mL High 0-243 [facility] Comment on above: Result Comment: [...] patients due to co-morbid conditions. PERFORMED BY: [place] [phone] PATHOLOGIST CLINICAL NURSE LEADER ABDIEL MTZ M.D. Performed By: #### C BC, CMP #### [facility] [address] [place], [place] [id number] [facility] Digoxinon 07-10-2022 Digoxin [Mass/Vol] 1.5 ng/mL Normal 0.9-2.0 [facility] Comment on above: Result Comment: Last dose: - PERFORMED BY: [place] [phone] PATHOLOGIST CLINICAL NURSE LEADER ABDIEL MTZ M.D. Performed By: #### C UBLD, DIG ####[facility] [id number] [place], [place] [id number] [facility] Digoxin [Mass/volume] in Ser um or PlasmaOrdered By: Iris Holliday on 07-10-2022 Digoxin [Mass/Vol] 1.5 ng/mL 0.9-2.0 [facility] Comment on above: Last dose: - ECG 12 lead ECGon 07-10-2022 ECG 12 lead ECG [facility] Main [place] [address] [place] [address] Electrocardiograph Report Signed Patient: Jaime Lechuga MR#: [id number] : 1955 Acct:[id number] Age/Sex: 66 / M ADM Date: 07/10/22 Loc: Room: [address] [place] [address] Type: ADM IN Attending Dr: Iris Lassiter [...] Abnormal ECG When compared with ECG of 10-JUL-2022 19:18, (Unconfirmed) ST more depressed in Inferior leads Confirmed by IRIS HOLLIDAY MD ([id number]) on 07/11/2022 1:22:53 AM Referred By: Electronically Signed By:IRIS HOLLIDAY MD Transcribed By: MUS Signed By Iris Holliday MD 06/28 06/20 0122 Normal [facility] ECG 12 lead ECG [facility] [place] [address] Electrocardiograph Report Signed Patient: Jaime Lechuga MR#: [id number] : 1955 Acct:[id number] Age/Sex: 66 / M ADM Date: 07/10/22 Loc: Room: [address] [place] [address] Type: ADM IN Attending Dr: Iris Lassiter DO Ordering Provider: Iris Holilday MD Date of Service: 07/10/22 ECG/ECG 12 [...] No previous ECGs available Confirmed by IRIS HOLLIDAY MD ([id number]) on 07/11/2022 1:23:14 AM Referred By: Electronically Signed By:IRIS HOLLIDAY MD Transcribed By: MUS Signed By Iris Holliday MD 06/28 06/20 0123 Normal [facility] Eosinophils Auto (Bld) [#/Vo l]Ordered By: Iris Holliday on 07-10-2022 Eosinophils (Bld) [#/Vol] 0.0 10*3/uL 0.0-0.45 [facility] Eosinophils/100 WBC Auto (Bl d)Ordered By: Iris Holliday on 07-10-2022 Eosinophils/100 WBC (Bld) 0.0 % . [facility] Erythrocyte distribution wid th Auto (RBC) [Ratio]Ordered By: Iris Holliday on 07-10-2022 Erythrocyte distribution width (RBC) [Ratio] 18.0 % 12.0-14.8 [facility] Fecal occult blood detection by immunochemistryOrdered By: Iris Holliday on 07-10-2022 Hemoglobin.gastrointesti nal Ql (Stl) [facility] Globulin Calc (S) [Mass/Vol] Ordered By: Iris Holliday on 07-10-2022 Globulin (S) [Mass/Vol] 3.2 g/dL F [facility] Glucose [Mass/volume] in Ser um or PlasmaOrdered By: Iris Holliday on 07-10-2022 Glucose [Mass/Vol] 110 mg/dL 70-100 [facility] Comment on above: ADA recommended refe rence rangeRandom Glucose Reference Range is dependent on time and content of last meal. Glucose of more than 200 mg/dL in a nonstressed, ambulatory subject supports the diagnosis of Diabetes Mellitus. Hematocrit Auto (Bld) [Volum e fraction]Ordered By: Iris Holliday on 07-10-2022 Hematocrit (Bld) [Volume fraction] 26.7 % 38.8-50.0 [facility] Hemoglobin [Mass/volume] in BloodOrdered By: Iris Holliday on 07-10-2022 Hemoglobin (Bld) [Mass/Vol] 7.9 g/dL 13.0-17.0 [facility] Hypochromia LM Ql (Bld)Order ed By: Iris Holliday on 07-10-2022 Hypochromia Ql (Bld) Moderate [facility] Ketones Auto test strip (U) [Mass/Vol]Ordered By: Iris Holliday on 07-10-2022 Ketones (U) [Mass/Vol] Trace Negative [facility] Laboratory - Chemistry and C hemistry - challengeOrdered By: Iris Holliday on 07-10-2022 CO2 [Moles/Vol] 27.1 mmol/L 23.0-27.0 [facility] HCO3 (Bld) [Moles/Vol] 25.7 mmol/L 23.0-29.0 F [facility] Laboratory - CoagulationOrde red By: Iris Holliday on 07-10-2022 PT Coag (PPP) [Time] 48.8 s 9.0-12.9 [facility] Laboratory - UrinalysisOrder ed By: Iris Holliday on 07-10-2022 Hyaline casts LM Ql (Urine sed) 9-19 [LPF] 0-8 [facility] Lactate [Moles/volume] in Se rum or PlasmaOrdered By: Iris Lassiter on 07-10-2022 Lactate [Moles/Vol] 2.9 mmol/L 0.5-2.2 [facility] Comment on above: Critical Result : Ca lled to and read back by: HEBERT QUISPE at: 07/11/2022 00:43:09 by:[id number] Lactic Acidon 07-10-2022 Lactate [Moles/Vol] 6.1 mmol/L Off scale high 0.5-2.2 [facility] Comment on above: Result Comment: Crit ical Result : Called to and read back by: QIANA MATTHEW at: 07/10/2022 19:57:52 by:LFM PERFORMED BY: [facility] [address] [place] [id number] PATHOLOGIST CLINICAL NURSE LEADER ABDIEL MTZ M.D. Performed By: #### L ACTIC ####[facility] [id number] [place] [address] [facility] Leukocytes [#/volume] correc milton for nucleated erythrocytes in Blood by Automated counOrdered By: Iris Holliday on 07-10-2022 WBC corrected for nucl RBC Auto (Bld) [#/Vol] 12.6 10*3/uL 4.1-10.5 [facility] Lymphocytes Auto (Bld) [#/Vo l]Ordered By: Iris Holliday on 07-10-2022 Lymphocytes (Bld) [#/Vol] 0.9 10*3/uL 1.00-4.8 [facility] Lymphocytes/100 WBC Auto (Bl d)Ordered By: Iris Holliday on 07-10-2022 Lymphocytes/100 WBC (Bld) 7.3 % . [facility] MCH Auto (RBC) [Entitic mass ]Ordered By: Iris Holliday on 07-10-2022 MCH (RBC) [Entitic mass] 23.6 pg 27.5-35.2 [facility] MCHC Auto (RBC) [Mass/Vol]Or dered By: Iris Holliday on 07-10-2022 MCHC (RBC) [Mass/Vol] 29.5 g/dL 32.5-35.6 [facility] MCV Auto (RBC) [Entitic vol] Ordered By: Iris Holliday on 07-10-2022 MCV (RBC) [Entitic vol] 80.0 fL 83.5-101 F [facility] Magnesiumon 07-10-2022 Magnesium [Mass/Vol] 2.1 mg/dL Normal 1.9-2.7 [facility] Comment on above: Performed By: #### C BC, CMP #### [address] Magnesium [Mass/volume] in S aakash or PlasmaOrdered By: Iris Holliday on 07-10-2022 Magnesium [Mass/Vol] 2.1 mg/dL 1.9-2.7 [facility] Microcytes LM Ql (Bld)Ordere d By: Iris Holliday on 07-10-2022 Microcytes Ql (Bld) Slight [facility] Monocyte distribution width [Entitic volume] in Blood by AutomatedOrdered By: Iris Holliday on 07-10-2022 Monocyte distribution width Auto (Bld) [Entitic vol] 17.34 % 0.00-20.00 [facility] Monocytes Auto (Bld) [#/Vol] Ordered By: Iris Holliday on 07-10-2022 Monocytes (Bld) [#/Vol] 1.3 10*3/uL 0.0-0.8 [facility] Monocytes/100 WBC Auto (Bld) Ordered By: Iris Holliday on 07-10-2022 Monocytes/100 WBC (Bld) 10.0 % . F [facility] Neutrophils Auto (Bld) [#/Vo l]Ordered By: Iris Holliday on 07-10-2022 Neutrophils (Bld) [#/Vol] 10.5 10*3/uL 1.8-7.7 [facility] Neutrophils/100 WBC Auto (Bl d)Ordered By: Iris Holliday on 07-10-2022 Neutrophils/100 WBC (Bld) 82.1 % . [facility] Nitrite Test strip Ql (U)Ord ered By: Iris Holliday on 07-10-2022 Nitrite Ql (U) Negative Negative [facility] No Panel InformationOrdered By: Iris Holliday on 07-10-2022 Arterial Blood Base Excess -0.2 mmol/L -3.0-3.0 [facility] Arterial Blood Oxygen Content 4.4 mmol/L 6.6-9.7 [facility] Arterial Blood Oxygen Saturation 82.7 % 95.0-100.0 [facility] Arterial Blood Partial Pressure CO2 48.0 mm[Hg] 35.0-45.0 [facility] Arterial Blood Partial Pressure O2 54.7 mm[Hg] 80.0-100.0 [facility] Arterial Blood pH 7.35 7.35-7.45 [facility] Blood Gas Critical Value See comment [facility] Comment on above: Critical Value stewart d on: 07/10/2022 at 20:40 Blood Gas Liter Flow 2 L/min [facility] Blood Gas Sample Site Left radial Fi [facility] FiO2 28 % [facility] Oxygen Delivery Device Nasal cannula [facility] D-Dimer Quantitative (PE/DVT) 1944 ng/mL 0-243 [facility] Comment on above: The reference range for D-dimer is <243 ng/mL D-dimer units.D-dimer results must be used in conjunction with a clinicalpretest probability (PTP) assessment model for deep veinthrombosis (DVT) and pulmonary embolism (PE). Results <230ng/mL d-dimer units can be used as a negative predictor inpatients with low or moderate probability for DVT/PE.Results above the exclusion threshold of 230 ng/ml D-dimerunits for DVT/PE may indicate the need for furtherdiagnostic testing.D-Dimer can be increased in hospitalized patients due toco-morbid conditions. Estimated GFR (CKD-EPI) 32.762 mL/Min [facility] Pharmacy Creatinine Clearance (Chem 31.35 [facility] Nucleated erythrocytes [Pres ence] in Blood by Automated countOrdered By: Iris Holliday on 07-10-2022 Nucleated RBC Auto Ql (Bld) 1.7 /100{WBC} 0-0.5 [facility] Partial Thromboplastin Timeo n 07-10-2022 aPTT Coag (Bld) [Time] 28.7 s Normal 25.1-36.5 [facility] Comment on above: Result Comment: PERF ORMED BY: [place] [address] PATHOLOGIST CLINICAL NURSE LEADER ABDIEL MTZ M.D. Performed By: #### C BC, CMP #### [address] Platelet adequacy [Presence] in Blood by Light microscopyOrdered By: Iris Holliday on 07-10-2022 Platelets LM Ql (Bld) Normal Normal [facility] Platelet mean volume Auto (B ld) [Entitic vol]Ordered By: Iris Holliday on 07-10-2022 Platelet mean volume (Bld) [Entitic vol] 9.9 fL 6.6-10.1 [facility] Platelet morphology finding [Identifier] in BloodOrdered By: Iris Holliday on 07-10-2022 Platelet morphology finding Nom (Bld) N/A [facility] Platelet poor plasma interna tional normalized ratio (INR) by coagulation assay (relatOrdered By: Iris Holliday on 07-10-2022 INR Coag (PPP) [Relative time] 4.3 {INR} [facility] Comment on above: INR Therapeutic [...] 07-10-2022 Platelets (Bld) [#/Vol] 180 10*3/uL 150-450 [facility] Platelets Large [Presence] i n Blood by Light microscopyOrdered By: Iris Holliday on 07-10-2022 Platelets Large LM Ql (Bld) Slight [facility] Polychromasia [Presence] in Blood by Light microscopyOrdered By: Iris Holliday on 07-10-2022 Polychromasia LM Ql (Bld) Moderate [facility] Potassium [Moles/volume] in Serum or PlasmaOrdered By: Iris Holliday on 07-10-2022 Potassium [Moles/Vol] 5.5 mmol/L 3.5-5.1 [facility] Protein Auto test strip (U) [Mass/Vol]Ordered By: Iris Holliday on 07-10-2022 Protein (U) [Mass/Vol] 100 mg/dL Negative [facility] Protein [Mass/volume] in Ser um or PlasmaOrdered By: Iris Holliday on 07-10-2022 Protein [Mass/Vol] 6.5 g/dL 6.4-8.9 [facility] Prothrombin Time INRon 07-10 INR Coag (PPP) [Relative time] 4.3 {INR} Normal [facility] Comment on above: Result Comment: [...] 3 - 4.5 Performed By: #### C BC, CMP #### [facility] [address] [place] [address] [place] PT Coag (PPP) [Time] 48.8 s High 9.0-12.9 [facility] Comment on above: Performed By: #### C BC, CMP #### [facility] [address] [place] [address] [place] RBC Auto (Bld) [#/Vol]Ordere d By: Iris Holliday on 07-10-2022 RBC (Bld) [#/Vol] 3.33 10*6/uL 3.90-5.60 [facility] RBC morphologyOrdered By: Cindy castro Mg on 07-10-2022 RBC morphology finding Nom (Bld) N/A [facility] Scan and CBCon 07-10-2022 Anisocytosis Ql (Bld) Slight Normal [facility] Comment on above: Performed By: #### P T, PTT #### [facility] [address] Basophils (Bld) [#/Vol] 0.1 10*3/uL Normal 0.0-0.2 [facility] Comment on above: Performed By: #### P T, PTT #### [address] Basophils/100 WBC (Bld) 0.6 % Normal . F [facility] Comment on above: Performed By: #### P T, PTT #### [address] Eosinophils (Bld) [#/Vol] 0.0 10*3/uL Normal 0.0-0.45 [facility] Comment on above: Performed By: #### P T, PTT #### [address] Eosinophils/100 WBC (Bld) 0.0 % Normal . [facility] Comment on above: Performed By: #### P T, PTT #### [address] Erythrocyte distribution width (RBC) [Ratio] 18.0 % High 12.0-14.8 [facility] Comment on above: Performed By: #### P T, PTT #### [address] Hematocrit (Bld) [Volume fraction] 26.7 % Low 38.8-50.0 [facility] Comment on above: Performed By: #### P T, PTT #### [address] Hemoglobin (Bld) [Mass/Vol] 7.9 g/dL Low 13.0-17.0 [facility] Comment on above: Performed By: #### P T, PTT #### [address] Hypochromasia Moderate Normal [facility] Comment on above: Performed By: #### P T, PTT #### [address] Large Platelets Slight Normal [facility] Comment on above: Result Comment: PERF ORMED BY: [place] [address] PATHOLOGIST CLINICAL NURSE LEADER ABDIEL MTZ M.D. Performed By: #### P T, PTT #### [address] Lymphocytes (Bld) [#/Vol] 0.9 10*3/uL Low 1.00-4.8 [facility] Comment on above: Performed By: #### P T, PTT #### [address] Lymphocytes/100 WBC (Bld) 7.3 % Normal . [facility] Comment on above: Performed By: #### P T, PTT #### [address] MCH (RBC) [Entitic mass] 23.6 pg Low 27.5-35.2 [facility] Comment on above: Performed By: #### P T, PTT #### [address] MCV (RBC) [Entitic vol] 80.0 fL Low 83.5-101 F [facility] Comment on above: Performed By: #### P T, PTT #### [address] Mean Corpuscular HGB Conc 29.5 g/dL Low 32.5-35.6 [facility] Comment on above: Performed By: #### P T, PTT #### [address] Microcytosis Slight Normal [facility] Comment on above: Performed By: #### P T, PTT #### [address] Monocytes (Bld) [#/Vol] 1.3 10*3/uL High 0.0-0.8 [facility] Comment on above: Performed By: #### P T, PTT #### [address] Monocytes/100 WBC (Bld) 17.34 % Normal 0.00-20.00 F [facility] Comment on above: Performed By: #### P T, PTT #### [address] Monocytes/100 WBC (Bld) 10.0 % Normal . F [facility] Comment on above: Performed By: #### P T, PTT #### [address] Neutrophils (Bld) [#/Vol] 10.5 10*3/uL High 1.8-7.7 [facility] Comment on above: Performed By: #### P T, PTT #### [address] Neutrophils/100 WBC (Bld) 82.1 % Normal . [facility] Comment on above: Performed By: #### P T, PTT #### [address] NRBC% 1.7 /100{WBC} High 0-0.5 [facility] Comment on above: Performed By: #### P T, PTT #### [address] Platelet Estimate Normal Normal Normal [facility] Comment on above: Performed By: #### P T, PTT #### [address] Platelet mean volume (Bld) [Entitic vol] 9.9 fL Normal 6.6-10.1 [facility] Comment on above: Performed By: #### P T, PTT #### [facility] [address] Platelets (Bld) [#/Vol] 180 10*3/uL Normal 150-450 [facility] Comment on above: Performed By: #### P T, PTT #### [facility] [address] [place] [address] Polychromasia Moderate Normal [facility] Comment on above: Performed By: #### P T, PTT #### [facility] [address] [place] [address] RBC (Bld) [#/Vol] 3.33 10*6/uL Low 3.90-5.60 [facility] Comment on above: Performed By: #### P T, PTT #### [facility] [address] [place] [address] WBC (Bld) [#/Vol] 12.6 10*3/uL High 4.1-10.5 [facility] Comment on above: Performed By: #### P T, PTT #### [facility] [address] [place] [address] Serum or plasma albumin/glob ulin mass ratioOrdered By: Iris Holliday on 07-10-2022 Albumin/Globulin [Mass ratio] 1.0 {ratio} [facility] Serum or plasma anion gap de terminationOrdered By: Iris Holliday on 07-10-2022 Anion gap [Moles/Vol] 17.9 mmol/L 6.0-15.0 [facility] Sodium [Moles/volume] in Ser um or PlasmaOrdered By: Iris Holliday on 07-10-2022 Sodium [Moles/Vol] 132 mmol/L 136-145 [facility] Specific gravity Auto test s trip (U) [Rel density]Ordered By: Iris Holliday on 07-10-2022 Specific gravity (U) [Rel density] 1.020 1.001-1.03 0 [facility] Squamous epithelial cells de tection in urine sediment by light microscopyOrdered By: Iris Holliday on 07-10-2022 Epithelial cells.squamous LM Ql (Urine sed) 3-4 [HPF] 0-2 [facility] Stool Occult Blood (Guaiac)o n 07-10-2022 Stool Occult Blood (Guaiac) Occult Blood Negative for Occult Blood by Guaiac Methodology ---- Reference range = Negative PERFORMED BY: [place] [phone] PATHOLOGIST CLINICAL NURSE LEADER ABDIEL MTZ M.D. Normal [facility] Comment on above: Performed By: #### O B(GUAIAC) ####[facility] [address] [place] [address] Thyroid Stimulating Hormoneo n 07-10-2022 TSH Qn 2.96 m[IU]/L Normal 0.45-5.33 [facility] Comment on above: Result Comment: PERF ORMED BY: [phone] PATHOLOGIST CLINICAL NURSE LEADER ABDIEL MTZ M.D. Performed By: #### P T, PTT #### [facility] [address] [place] [address] Thyrotropin [Units/volume] i n Serum or PlasmaOrdered By: Iris Holliday on 07-10-2022 TSH Qn 2.96 m[IU]/L 0.45-5.33 [facility] Troponin I High Sensitivityo n 07-10-2022 Troponin I High Sensitivity 48.3 pg/mL High 0.0-20.0 [facility] Comment on above: Result Comment: PERF ORMED BY: [place] [phone] PATHOLOGIST CLINICAL NURSE LEADER ABDIEL MTZ M.D. Performed By: #### C BC, CMP #### [facility] [address] [place] [address] Troponin I.cardiac [Mass/vol ume] in Serum or Plasma by Detection limit <= 0.01 ng/Ordered By: Iris Holliday on 07-10-2022 Troponin I.cardiac DL <= 0.01 ng/mL [Mass/Vol] 48.3 pg/mL 0.0-20.0 [facility] Urea nitrogen [Mass/volume] in Serum or PlasmaOrdered By: Iris Holliday on 07-10-2022 Urea nitrogen [Mass/Vol] 59 mg/dL 7-25 [facility] Urine bacteria detection by automated methodOrdered By: Iris Holliday on 07-10-2022 Bacteria Auto Ql (U) None seen None Seen [facility] Urine clarity by refractomet ry automatedOrdered By: Iris Holliday on 07-10-2022 Clarity Refractometry automated (U) Cloudy Clear [facility] Urine glucose measurement by automated test strip (mass/volume)Ordered By: Iris Holliday on 07-10-2022 Glucose Auto test strip (U) [Mass/Vol] Normal mg/dL Normal [facility] Urine hemoglobin detection b y automated test stripOrdered By: Iris Holliday on 07-10-2022 Hemoglobin Auto test strip Ql (U) Negative Negative [facility] Urine leukocyte esterase det ection by automated test stripOrdered By: Iris Holliday on 07-10-2022 Leukocyte esterase Auto test strip Ql (U) 1+ Negative [facility] Urine sediment renal epithel ial cell count by microscopy (number/high power field)Ordered By: Iris Holliday on 07-10-2022 Epithelial cells.renal LM.HPF (Urine sed) [#/Area] 3-4 [HPF] 0-1 [facility] Urobilinogen Auto test strip (U) [Mass/Vol]Ordered By: Iris Holliday on 07-10-2022 Urobilinogen (U) [Mass/Vol] Normal mg/dL Normal [facility] WBC Auto (Bld) [#/Vol]Ordere d By: Iris Holliday on 07-10-2022 WBC (Bld) [#/Vol] 12.6 10*3/uL 4.1-10.5 [facility] pH Auto test strip (U)Ordere d By: Iris Holliday on 07-10-2022 pH (U) 5.0 [pH] 5.0-9.0 [facility] Follow-Upon 12-09-2021 Follow-Up [id number] Jaime Lechuga 1955 M Date Provider Department Center 12/09/2021 [facility] Family History Problem Relation Age of Onset Diabetes Brother Family Status - Relation Status Age at Brother Level of Service:57[address] [place] OFFICE/OUTPATIENT ESTABLISHED LOW MDM 20-29 MIN Reason for Visit and Comments: Congestive Heart Failure [127] Atrial Fibrillation [80] Peripheral Vascular Disease [458] Normal [facility] DIGOXINon 11-16-2021 DIG 0.5 ng/mL Critically low 0.9-2.0 [facility] Comment on above: Performed By: #### M G #### Laboratory [address] [place] [address] Dr. Carole Carvalho PROF CHEM 8 (BAS METB)on Anion gap [Moles/Vol] 8.7 mmol/L Normal [facility] Comment on above: Performed By: #### B CRAFT SUPERINTENDENT #### Laboratory [address] [place] [address] Dr. Carole Carvalho Calcium [Mass/Vol] 9.0 mg/dL Normal 8.5-10.1 [facility] Comment on above: Performed By: #### B CRAFT SUPERINTENDENT #### Laboratory [address] [place] [address] Dr. Carole Carvalho Chloride [Moles/Vol] 103 mmol/L Normal 98-107 [facility] Comment on above: Performed By: #### B CRAFT SUPERINTENDENT #### Laboratory [address] [place] [address] [address] Carole Carvalho CO2 [Moles/Vol] 33.2 mmol/L Critically high 21.0-32.0 [facility] Comment on above: Performed By: #### B CRAFT SUPERINTENDENT #### Laboratory [address] [place] [address] Dr. Carole Carvalho Creatinine [Mass/Vol] 0.90 mg/dL Normal 0.70-1.30 [facility] Comment on above: Performed By: #### B CRAFT SUPERINTENDENT #### Laboratory [address] [place] [address] Dr. Carole Carvalho EGFR-AF [place] >60 Normal >=60 [facility] Comment on above: Performed By: #### B CRAFT SUPERINTENDENT #### Laboratory [address] [place] [address] [address] Carole Carvalho EGFR-NON AF [place] >60 Normal >=60 [facility] Comment on above: Performed By: #### B CRAFT SUPERINTENDENT #### Laboratory [address] [place] [address] [address] Carole Carvalho Glucose [Mass/Vol] 98 mg/dL Normal 74-106 [facility] Comment on above: Performed By: #### B CRAFT SUPERINTENDENT #### Laboratory [address] [place] [address] [address] Carole Carvalho Potassium [Moles/Vol] 3.9 mmol/L Normal 3.5-5.1 [facility] Comment on above: Performed By: #### B CRAFT SUPERINTENDENT #### Laboratory [address] [place] [address] Dr. Carole Carvalho Sodium [Moles/Vol] 141 mmol/L Normal 136-145 [facility] Comment on above: Performed By: #### B CRAFT SUPERINTENDENT #### Laboratory [address] [place] [address] Dr. Carole Carvalho Urea nitrogen [Mass/Vol] 12.0 mg/dL Normal 7.0-18.0 [facility] Comment on above: Performed By: #### B CRAFT SUPERINTENDENT #### Laboratory [address] [place] [address] Dr. Carole Carvalho Urea nitrogen/Creatinine [Mass ratio] 13.3 mg/mg Normal [facility] Comment on above: Performed By: #### B CRAFT SUPERINTENDENT #### Laboratory [address] [place] [address] CHEST WO CONon [...] by: KATE BUSH Date: 2021-11-05 10:18 Normal [facility] CBC AUTO DIFFon 07-27-2021 BASO # 0.0 103/ul Normal 0.0-0.1 [facility] Comment on above: Performed By: #### Holly Gómez, BMP #### Laboratory [address] [place] [address] Dr. Carole Carvalho Basophils/100 WBC (Bld) 0.3 % Normal 0.2-2.0 [facility] Comment on above: Performed By: #### Holly Gómez, BMP #### Laboratory [address] [place] [address] Dr. Carole Carvalho EO # 0.0 103/ul Normal 0.0-0.7 [facility] Comment on above: Performed By: #### Holly Gómez, BMP #### Laboratory [address] [place] [address] Dr. Carole Carvalho Eosinophils/100 WBC (Bld) 0.0 % Critically low 0.9-7.0 [facility] Comment on above: Performed By: #### Holly Gómez, BMP #### Laboratory [address] [place] [address] Dr. Carole Carvalho Erythrocyte distribution width (RBC) [Ratio] 15.3 % Critically high 11.0-15.0 [facility] Comment on above: Performed By: #### Holly Gómez, BMP #### Laboratory [address] [place] [address] Dr. Carole Carvalho Hematocrit (Bld) [Volume fraction] 32.1 % Critically low 42.0-54.0 [facility] Comment on above: Performed By: #### M G, BMP #### Laboratory [address] [place] [address] Dr. Carole Carvalho Hemoglobin (Bld) [Mass/Vol] 9.8 g/dL Critically low 14.0-18.0 [facility] Comment on above: Performed By: #### M G, BMP #### Laboratory [address] [place] [address] Dr. Carole Carvalho IG # 0.12 10e3/ul Critically high 0.00-0.03 [facility] Comment on above: Performed By: #### M G, BMP #### Laboratory [address] [place] [address] Dr. Carole Carvalho IG % 1.1 % Critically high 0.0-0.5 [facility] Comment on above: Performed By: #### M G, BMP #### Laboratory [address] [place] [address] Dr. Carole Carvalho LYMPH # 2.0 103/ul Normal 1.2-3.8 [facility] Comment on above: Performed By: #### M G, BMP #### Laboratory [address] [place] [address] Dr. Carole Carvalho Lymphocytes/100 WBC (Bld) 18.6 % Critically low 20.5-60.0 [facility] Comment on above: Performed By: #### M G, BMP #### Laboratory [address] [place] [address] Dr. Carole Carvalho MANUAL DIFF REQ NO Normal The Comment on above: Performed By: #### M G, BMP #### Laboratory [address] [place] [address] Dr. Carole Carvalho MCH (RBC) [Entitic mass] 29.7 pg Normal 25.9-34.0 [facility] Comment on above: Performed By: #### M G, BMP #### Laboratory [address] [place] [address] [address] Carole Carvalho MCHC (RBC) [Mass/Vol] 30.5 g/dL Normal 29.9-35.2 [facility] Comment on above: Performed By: #### M G, BMP #### Laboratory [address] [place] [address] Dr. Carole Carvalho MCV (RBC) [Entitic vol] 97.3 fL Critically high 80.0-94 .0 [facility] Comment on above: Performed By: #### M G, BMP #### Laboratory [address] [place] [address] Dr. Carole Carvalho MONO # 1.2 103/ul Critically high 0.3-0.8 [facility] Comment on above: Performed By: #### M G, BMP #### Laboratory [address] [place] [address] Dr. Carole Carvalho Monocytes/100 WBC (Bld) 10.9 % Normal 1.7-12.0 [facility] Comment on above: Performed By: #### M G, BMP #### Laboratory [address] [place] [address] Dr. Carole Carvalho NEUT # 7.3 103/ul Critically high 1.4-6.5 [facility] Comment on above: Performed By: #### M G, BMP #### Laboratory [address] [place] [address] Dr. Carole Carvalho Neutrophils/100 WBC (Bld) 69.1 % Normal 43.0-75.0 [facility] Comment on above: Performed By: #### M G, BMP #### Laboratory [address] [place] [address] Dr. Carole Carvalho Platelet mean volume (Bld) [Entitic vol] 10.7 fL Normal 9.5-13.5 [facility] Comment on above: Performed By: #### M G, BMP #### Laboratory [address] [place] [address] Dr. Carole Carvalho PLT 282 103/ul Normal 150-450 The Comment on above: Performed By: #### M G, BMP #### Laboratory [address] [place] [address] Dr. Carole Carvalho RBC 3.30 106/ul Critically low 4.70-6.10 [facility] Comment on above: Performed By: #### M G, BMP #### Laboratory [address] [place] [address] Dr. Carole Carvalho WBC 10.5 103/ul Normal 4.0-11.0 [facility] Comment on above: Performed By: #### M G, BMP #### Laboratory [address] [place] [address] Dr. Carole Carvalho DIGOXINon 07-27-2021 DIG 0.4 ng/mL Critically low 0.9-2.0 [facility] Comment on above: Performed By: #### D IG #### Laboratory [address] [place] [address] Dr. Carole Carvalho MAGNESIUMon 07-27-2021 Magnesium [Mass/Vol] 2.0 mg/dL Normal 1.8-2.4 [facility] Comment on above: Performed By: #### M G #### Laboratory [address] [place] [address] Dr. Carole Carvalho PROF CHEM 8 (BAS METB)on Anion gap [Moles/Vol] 10.0 mmol/L Normal [facility] Comment on above: Performed By: #### M G #### Laboratory [address] [place] [address] Dr. Carole Carvalho Calcium [Mass/Vol] 7.8 mg/dL Critically low 8.5-10.1 [facility] Comment on above: Performed By: #### M G #### Laboratory [address] [place] [address] Dr. Carole Carvalho Chloride [Moles/Vol] 101 mmol/L Normal 98-107 [facility] Comment on above: Performed By: #### M G #### Laboratory [address] [place] [address] Dr. Carole Carvalho CO2 [Moles/Vol] 30.7 mmol/L Normal 21.0-32.0 [facility] Comment on above: Performed By: #### M G #### Laboratory [address] [place] [address] Dr. Carole Carvalho Creatinine [Mass/Vol] 0.98 mg/dL Normal 0.70-1.30 [facility] Comment on above: Performed By: #### M G #### Laboratory [address] [place] [address] Dr. Carole Carvalho EGFR-AF [place] >60 Normal >=60 [facility] Comment on above: Performed By: #### M G #### Laboratory [address] [place] [address] Dr. Carole Carvalho EGFR-NON AF [place] >60 Normal >=60 [facility] Comment on above: Performed By: #### M G #### Laboratory [address] [place] [address] Dr. Carole Carvalho Glucose [Mass/Vol] 96 mg/dL Normal 74-106 The Comment on above: Performed By: #### M G #### Laboratory [address] [place] [address] Dr. Carole Carvalho Potassium [Moles/Vol] 3.7 mmol/L Normal 3.5-5.1 [facility] Comment on above: Performed By: #### M G #### Laboratory [address] [place] [address] Dr. Carole Carvalho Sodium [Moles/Vol] 138 mmol/L Normal 136-145 The Comment on above: Performed By: #### M G #### Laboratory [address] [place] [address] Dr. Carole Carvalho Urea nitrogen [Mass/Vol] 16.0 mg/dL Normal 7.0-18.0 The Comment on above: Performed By: #### M G #### Laboratory [address] [place] [address] Dr. Carole Carvalho Urea nitrogen/Creatinine [Mass ratio] 16.3 mg/mg Normal The Comment on above: Performed By: #### M G #### Laboratory [address] [place] [address] Dr. Carole Carvalho CBC AUTO DIFFon 07-26-2021 BASO # 0.0 103/ul Normal 0.0-0.1 [facility] Comment on above: Performed By: #### M G, BMP #### Laboratory [address] [place] [address] Dr. Carole Carvalho Basophils/100 WBC (Bld) 0.4 % Normal 0.2-2.0 [facility] Comment on above: Performed By: #### M G, BMP #### Laboratory [address] [place] [address] Dr. Carole Carvalho EO # 0.0 103/ul Normal 0.0-0.7 [facility] Comment on above: Performed By: #### M G, BMP #### Laboratory [address] [place] [address] Dr. Carole Carvalho Eosinophils/100 WBC (Bld) 0.1 % Critically low 0.9-7.0 [facility] Comment on above: Performed By: #### M G, BMP #### Laboratory [address] [place] [address] Dr. Carole Carvalho Erythrocyte distribution width (RBC) [Ratio] 15.1 % Critically high 11.0-15.0 [facility] Comment on above: Performed By: #### M G, BMP #### Laboratory [address] [place] [address] Dr. Carole Carvalho Hematocrit (Bld) [Volume fraction] 33.5 % Critically low 42.0-54.0 [facility] Comment on above: Performed By: #### M G, BMP #### Laboratory [address] [place] [address] Dr. Carole Carvalho Hemoglobin (Bld) [Mass/Vol] 10.3 g/dL Critically low 14.0-18.0 [facility] Comment on above: Performed By: #### M G, BMP #### Laboratory [address] [place] [address] Dr. Carole Carvalho IG # 0.06 10e3/ul Critically high 0.00-0.03 [facility] Comment on above: Performed By: #### M G, BMP #### Laboratory [address] [place] [address] Dr. Carole Carvalho IG % 0.5 % Normal 0.0-0.5 [facility] Comment on above: Performed By: #### M G, BMP #### Laboratory [address] [place] [address] Dr. Carole Carvalho LYMPH # 2.2 103/ul Normal 1.2-3.8 [facility] Comment on above: Performed By: #### M G, BMP #### Laboratory [address] [place] [address] Dr. Carole Carvalho Lymphocytes/100 WBC (Bld) 20.1 % Critically low 20.5-60.0 [facility] Comment on above: Performed By: #### M G, BMP #### Laboratory [address] [place] [address] Dr. Carole Carvalho MANUAL DIFF REQ NO Normal [facility] Comment on above: Performed By: #### M G, BMP #### Laboratory [address] [place] [address] Dr. Carole Carvalho MCH (RBC) [Entitic mass] 29.9 pg Normal 25.9-34.0 [facility] Comment on above: Performed By: #### M G, BMP #### Laboratory [address] [place] [address] Dr. Carole Carvalho MCHC (RBC) [Mass/Vol] 30.7 g/dL Normal 29.9-35.2 [facility] Comment on above: Performed By: #### M G, BMP #### Laboratory [address] [place] [address] Dr. Carole Carvalho MCV (RBC) [Entitic vol] 97.4 fL Critically high 80.0-94 .0 [facility] Comment on above: Performed By: #### M G, BMP #### Laboratory [address] [place] [address] Dr. Carole Carvalho MONO # 1.1 103/ul Critically high 0.3-0.8 [facility] Comment on above: Performed By: #### M G, BMP #### Laboratory [address] [place] [address] Dr. Carole Carvalho Monocytes/100 WBC (Bld) 10.0 % Normal 1.7-12.0 [facility] Comment on above: Performed By: #### M G, BMP #### Laboratory [address] [place] [address] Dr. aCrole Carvalho NEUT # 7.6 103/ul Critically high 1.4-6.5 [facility] Comment on above: Performed By: #### M G, BMP #### Laboratory [address] [place] [address] Dr. Carole Carvalho Neutrophils/100 WBC (Bld) 68.9 % Normal 43.0-75.0 [facility] Comment on above: Performed By: #### Holly G, BMP #### Laboratory [address] [place] [address] Dr. Carole Carvalho Platelet mean volume (Bld) [Entitic vol] 11.2 fL Normal 9.5-13.5 [facility] Comment on above: Performed By: #### Holly G, BMP #### Laboratory [address] [place] [address] Dr. Carole Carvalho PLT 212 103/ul Normal 150-450 [facility] Comment on above: Performed By: #### Holly G, BMP #### Laboratory [address] [place] [address] Dr. Carole Carvalho RBC 3.44 106/ul Critically low 4.70-6.10 [facility] Comment on above: Performed By: #### M G, BMP #### Laboratory [address] [place] [address] Dr. Carole Carvalho WBC 11.1 103/ul Critically high 4.0-11.0 [facility] Comment on above: Performed By: #### M G, BMP #### Laboratory [address] [place] [address] Dr. Carole Carvalho MAGNESIUMon 05-29-2022 Magnesium [Mass/Vol] 2.1 mg/dL Normal 1.8-2.4 [facility] Comment on above: Performed By: #### M G, BMP #### Laboratory [address] [place] [address] Dr. Carole Carvalho PROF CHEM 8 (BAS METB)on Anion gap [Moles/Vol] 7.5 mmol/L Normal [facility] Comment on above: Performed By: #### M G, BMP #### Laboratory [address] [place] [address] Dr. Carole Carvalho Calcium [Mass/Vol] 8.7 mg/dL Normal 8.5-10.1 The Comment on above: Performed By: #### M G, BMP #### Laboratory [address] [place] [address] Dr. Carole Carvalho Chloride [Moles/Vol] 99 mmol/L Normal 98-107 The Comment on above: Performed By: #### M G, BMP #### Laboratory [address] [place] [address] Dr. Carole Carvalho CO2 [Moles/Vol] 33.2 mmol/L Critically high 21.0-32.0 [facility] Comment on above: Performed By: #### M G, BMP #### Laboratory [address] [place] [address] Dr. Carole Carvalho Creatinine [Mass/Vol] 0.91 mg/dL Normal 0.70-1.30 The Comment on above: Performed By: #### M G, BMP #### Laboratory [address] [place] [address] Dr. Carole Carvalho EGFR-AF [place] >60 Normal >=60 The Comment on above: Performed By: #### M G, BMP #### Laboratory [address] [place] [address] Dr. Carole Carvalho EGFR-NON AF [place] >60 Normal >=60 The Comment on above: Performed By: #### M G, BMP #### Laboratory [address] [place] [address] Dr. Carole Carvalho Glucose [Mass/Vol] 105 mg/dL Normal 74-106 [facility] Comment on above: Performed By: #### M G, BMP #### Laboratory [address] [place] [address] Dr. Carole Carvalho Potassium [Moles/Vol] 3.7 mmol/L Normal 3.5-5.1 [facility] Comment on above: Performed By: #### M G, BMP #### Laboratory [address] [place] [address] Dr. Carole Carvalho Sodium [Moles/Vol] 136 mmol/L Normal 136-145 [facility] Comment on above: Performed By: #### M G, BMP #### Laboratory [address] [place] [address] Dr. Carole Carvalho Urea nitrogen [Mass/Vol] 21.0 mg/dL Critically high 7.0-18 .0 [facility] Comment on above: Performed By: #### Holly Gómez, BMP #### Laboratory [address] [place] [address] Dr. Carole Carvalho Urea nitrogen/Creatinine [Mass ratio] 23.1 mg/mg Normal [facility] Comment on above: Performed By: #### Holly Gómez, BMP #### Laboratory [address] [place] [address] Dr. Carole Carvalho CBC AUTO DIFFon 07-25-2021 BASO # 0.0 103/ul Normal 0.0-0.1 [facility] Comment on above: Performed By: #### M G, BMP #### Laboratory [address] [place] [address] Dr. Carole Carvalho Basophils/100 WBC (Bld) 0.3 % Normal 0.2-2.0 [facility] Comment on above: Performed By: #### M G, BMP #### Laboratory [address] [place] [address] Dr. Carole Carvalho EO # 0.0 103/ul Normal 0.0-0.7 [facility] Comment on above: Performed By: #### M Rico, BMP #### Laboratory [address] [place] [address] Dr. Carole Carvalho Eosinophils/100 WBC (Bld) 0.0 % Critically low 0.9-7.0 [facility] Comment on above: Performed By: #### M G, BMP #### Laboratory [address] [place] [address] Dr. Carole Carvalho Erythrocyte distribution width (RBC) [Ratio] 14.8 % Normal 11.0-15.0 [facility] Comment on above: Performed By: #### M G, BMP #### Laboratory [address] [place] [address] Dr. Carole Carvalho Hematocrit (Bld) [Volume fraction] 33.3 % Critically low 42.0-54.0 [facility] Comment on above: Performed By: #### M G, BMP #### Laboratory [address] [place] [address] Dr. Carole Carvalho Hemoglobin (Bld) [Mass/Vol] 10.2 g/dL Critically low 14.0-18.0 [facility] Comment on above: Performed By: #### M G, BMP #### Laboratory [address] [place] [address] Dr. Carole Carvalho IG # 0.05 10e3/ul Critically high 0.00-0.03 [facility] Comment on above: Performed By: #### M G, BMP #### Laboratory [address] [place] [address] Dr. Carole Carvalho IG % 0.5 % Normal 0.0-0.5 [facility] Comment on above: Performed By: #### M G, BMP #### Laboratory [address] [place] [address] Dr. Carole Carvalho LYMPH # 1.7 103/ul Normal 1.2-3.8 [facility] Comment on above: Performed By: #### M G, BMP #### Laboratory [address] [place] [address] Dr. Carole Carvalho Lymphocytes/100 WBC (Bld) 17.0 % Critically low 20.5-60.0 [facility] Comment on above: Performed By: #### M G, BMP #### Laboratory [address] [place] [address] Dr. Carole Carvalho MANUAL DIFF REQ NO Normal [facility] Comment on above: Performed By: #### M G, BMP #### Laboratory [address] [place] [address] Dr. Carole Carvalho MCH (RBC) [Entitic mass] 30.1 pg Normal 25.9-34.0 [facility] Comment on above: Performed By: #### M G, BMP #### Laboratory [address] [place] [address] Dr. Carole Carvalho MCHC (RBC) [Mass/Vol] 30.6 g/dL Normal 29.9-35.2 [facility] Comment on above: Performed By: #### M G, BMP #### Laboratory [address] [place] [address] Dr. Carole Carvalho MCV (RBC) [Entitic vol] 98.2 fL Critically high 80.0-94 .0 [facility] Comment on above: Performed By: #### M G, BMP #### Laboratory [address] [place] [address] Dr. Carole Carvalho MONO # 1.2 103/ul Critically high 0.3-0.8 [facility] Comment on above: Performed By: #### M G, BMP #### Laboratory [address] [place] [address] Dr. Carole Carvalho Monocytes/100 WBC (Bld) 11.6 % Normal 1.7-12.0 [facility] Comment on above: Performed By: #### M G, BMP #### Laboratory [address] [place] [address] Dr. Carole Carvalho NEUT # 7.0 103/ul Critically high 1.4-6.5 [facility] Comment on above: Performed By: #### M G, BMP #### Laboratory [address] [place] [address] Dr. Carole Carvalho Neutrophils/100 WBC (Bld) 70.6 % Normal 43.0-75.0 [facility] Comment on above: Performed By: #### M G, BMP #### Laboratory [address] [place] [address] Dr. Carole Carvalho Platelet mean volume (Bld) [Entitic vol] 11.8 fL Normal 9.5-13.5 [facility] Comment on above: Performed By: #### M G, BMP #### Laboratory [address] [place] [address] Dr. Carole Carvalho PLT 168 103/ul Normal 150-450 The Comment on above: Performed By: #### M G, BMP #### Laboratory [address] [place] [address] Dr. Carole Carvalho RBC 3.39 106/ul Critically low 4.70-6.10 The Comment on above: Performed By: #### Holly G, BMP #### Laboratory [address] [place] [address] Dr. Carole Carvalho WBC 9.9 103/ul Normal 4.0-11.0 The Comment on above: Performed By: #### Holly G, BMP #### Laboratory [address] [place] [address] Dr. Carole Carvalho MAGNESIUMon 07-25-2021 Magnesium [Mass/Vol] 1.9 mg/dL Normal 1.8-2.4 [facility] Comment on above: Performed By: #### Holly G, BMP #### Laboratory [address] [place] [address] Dr. Carole Carvalho PROF CHEM 8 (BAS METB)on Anion gap [Moles/Vol] 6.5 mmol/L Normal The Comment on above: Performed By: #### M G, BMP #### Laboratory [address] [place] [address] Dr. Carole Carvalho Calcium [Mass/Vol] 8.8 mg/dL Normal 8.5-10.1 The Comment on above: Performed By: #### Holly G, BMP #### Laboratory [address] [address] [address] Carole Carvalho Chloride [Moles/Vol] 99 mmol/L Normal 98-107 [facility] Comment on above: Performed By: #### M G, BMP #### Laboratory [address] [place] [address] Dr. Carole Carvalho CO2 [Moles/Vol] 33.5 mmol/L Critically high 21.0-32.0 [facility] Comment on above: Performed By: #### M G, BMP #### Laboratory [address] [place] [address] Dr. Carole Carvalho Creatinine [Mass/Vol] 0.89 mg/dL Normal 0.70-1.30 [facility] Comment on above: Performed By: #### M G, BMP #### Laboratory [address] [place] [address] Dr. Carole Carvalho EGFR-AF [place] >60 Normal >=60 [facility] Comment on above: Performed By: #### Holly Gómez, BMP #### Laboratory [address] [place] [address] Dr. Carole Carvalho EGFR-NON AF [place] >60 Normal >=60 [facility] Comment on above: Performed By: #### M G, BMP #### Laboratory [address] [place] [address] Dr. Carole Carvalho Glucose [Mass/Vol] 88 mg/dL Normal 74-106 [facility] Comment on above: Performed By: #### Holly G, BMP #### Laboratory [address] [place] [address] Dr. Carole Carvalho Potassium [Moles/Vol] 4.0 mmol/L Normal 3.5-5.1 [facility] Comment on above: Performed By: #### M G, BMP #### Laboratory [address] [place] [address] Dr. Carole Carvalho Sodium [Moles/Vol] 135 mmol/L Critically low 136-145 [facility] Comment on above: Performed By: #### M G, BMP #### Laboratory [address] [place] [address] Dr. Carole Carvalho Urea nitrogen [Mass/Vol] 18.0 mg/dL Normal 7.0-18.0 [facility] Comment on above: Performed By: #### M G, BMP #### Laboratory [address] [place] [address] Dr. Carole Carvalho Urea nitrogen/Creatinine [Mass ratio] 20.2 mg/mg Normal [facility] Comment on above: Performed By: #### M G, BMP #### Laboratory [address] [place] [address] Dr. Carole Carvalho BLOOD CULTURE ID/SENSon [id number] Aerobe ID + Suscept Final report Abnormal [facility] Comment on above: Performed By: #### M G #### Laboratory [address] [place] [address] Dr. Carole Carvalho Performed By: #### M G, BMP #### Laboratory [address] [place] [address] Dr. Carole Carvalho Performed By: #### B CRAFT SUPERINTENDENT #### Laboratory [address] [place] [address] Dr. Carole Carvalho Antimicrobial Susceptibility Comment Normal [facility] Comment on above: Result Comment: S = Susceptible; I = Intermediate; R = Resistant P = Positive; N = Negative MICS are expressed in micrograms per mL Antibiotic RSLT#1 RSLT#2 RSLT#3 RSLT#4 Ciprofloxacin R Gentamicin S Levofloxacin I Linezolid S Moxifloxacin R Oxacillin S Penicillin R Quinupristin/Dalfopristin S Rifampin S Tetracycline S Trimethoprim/Sulfa S Vancomycin S Performed By: #### M G #### Laboratory [address] [place] [address] Dr. Carole Carvalho Result Comment: S = Susceptible; I = Intermediate; R = Resistant P = Positive; N = Negative MICS are expressed in micrograms per mL Antibiotic RSLT#1 RSLT#2 RSLT#3 RSLT#4 Ciprofloxacin R Gentamicin S Levofloxacin I Linezolid S Moxifloxacin I Oxacillin S Penicillin R Quinupristin/Dalfopristin S Rifampin S Tetracycline S Trimethoprim/Sulfa S Vancomycin S Performed By: #### M G, BMP #### Laboratory [address] [place] [address] Dr. Carole Carvalho Performed By: #### B CRAFT SUPERINTENDENT #### Laboratory [address] [place] [address] Dr. Carole Carvalho Result 1 Staphylococcus aureus Abnormal The Comment on above: Result Comment: Maxwell robert [...] Meropenem Performed By: #### M G #### Laboratory [address] [place] [address] Dr. Carole Carvalho Result Comment: Maxwell robert [...] Performed By: #### M G, BMP #### Laboratory [address] [place] [address] Dr. Carole Carvalho Performed By: #### B CRAFT SUPERINTENDENT #### Laboratory [address] [address] [address] Carole Carvalho CBC AUTO DIFFon 07-24-2021 BASO # 0.0 103/ul Normal 0.0-0.1 [facility] Comment on above: Performed By: #### M G #### Laboratory [address] [place] [address] Dr. Carole Carvalho Basophils/100 WBC (Bld) 0.2 % Normal 0.2-2.0 [facility] Comment on above: Performed By: #### M G #### Laboratory [address] [place] [address] Dr. Carole Carvalho EO # 0.0 103/ul Normal 0.0-0.7 [facility] Comment on above: Performed By: #### M G #### Laboratory [address] [place] [address] Dr. Carole Carvalho Eosinophils/100 WBC (Bld) 0.0 % Critically low 0.9-7.0 [facility] Comment on above: Performed By: #### M G #### Laboratory [address] [place] [address] Dr. Carole Carvalho Erythrocyte distribution width (RBC) [Ratio] 14.6 % Normal 11.0-15.0 [facility] Comment on above: Performed By: #### M G #### Laboratory [address] [place] [address] Dr. Carole Carvalho Hematocrit (Bld) [Volume fraction] 34.2 % Critically low 42.0-54.0 [facility] Comment on above: Performed By: #### M G #### Laboratory [address] [place] [address] Dr. Carole Carvlaho Hemoglobin (Bld) [Mass/Vol] 10.3 g/dL Critically low 14.0-18.0 [facility] Comment on above: Performed By: #### M G #### Laboratory [address] [place] [address] Dr. Carole Carvalho IG # 0.04 10e3/ul Critically high 0.00-0.03 [facility] Comment on above: Performed By: #### M G #### Laboratory [address] [place] [address] Dr. Carole Carvalho IG % 0.5 % Normal 0.0-0.5 [facility] Comment on above: Performed By: #### M G #### Laboratory [address] [place] [address] Dr. Carole Carvalho LYMPH # 1.6 103/ul Normal 1.2-3.8 [facility] Comment on above: Performed By: #### M G #### Laboratory [address] [place] [address] Dr. Carole Carvalho Lymphocytes/100 WBC (Bld) 18.1 % Critically low 20.5-60.0 [facility] Comment on above: Performed By: #### M G #### Laboratory [address] [place] [address] Dr. Carole Carvalho MANUAL DIFF REQ NO Normal [facility] Comment on above: Performed By: #### M G #### Laboratory [address] [place] [address] Dr. Carole Carvalho MCH (RBC) [Entitic mass] 29.8 pg Normal 25.9-34.0 [facility] Comment on above: Performed By: #### M G #### Laboratory [address] [place] [address] Dr. Carole Carvalho MCHC (RBC) [Mass/Vol] 30.1 g/dL Normal 29.9-35.2 [facility] Comment on above: Performed By: #### M G #### Laboratory [address] [place] [address] Dr. Carole Carvalho MCV (RBC) [Entitic vol] 98.8 fL Critically high 80.0-94 .0 [facility] Comment on above: Performed By: #### M G #### Laboratory [address] [place] [address] Dr. Carole Carvalho MONO # 1.1 103/ul Critically high 0.3-0.8 [facility] Comment on above: Performed By: #### M G #### Laboratory [address] [address] [address] Carole Carvalho Monocytes/100 WBC (Bld) 12.6 % Critically high 1.7-12. 0 [facility] Comment on above: Performed By: #### M G #### Laboratory [address] [address] [address] Carole Carvalho NEUT # 5.9 103/ul Normal 1.4-6.5 The Comment on above: Performed By: #### M G #### Laboratory [address] [place] [address] Dr. Carole Carvalho Neutrophils/100 WBC (Bld) 68.6 % Normal 43.0-75.0 The Comment on above: Performed By: #### M G #### Laboratory [address] [place] [address] Dr. Carole Carvalho Platelet mean volume (Bld) [Entitic vol] 11.7 fL Normal 9.5-13.5 The Comment on above: Performed By: #### M G #### Laboratory [address] [place] [address] Dr. Carole Carvalho PLT 142 103/ul Critically low 150-450 [facility] Comment on above: Performed By: #### M G #### Laboratory [address] [place] [address] Dr. Carole Carvalho RBC 3.46 106/ul Critically low 4.70-6.10 The Comment on above: Performed By: #### M G #### Laboratory [address] [place] [address] Dr. Carole Carvalho WBC 8.6 103/ul Normal 4.0-11.0 The Comment on above: Performed By: #### M G #### Laboratory [address] [place] [address] Dr. Carole Carvalho MAGNESIUMon 07-24-2021 Magnesium [Mass/Vol] 1.9 mg/dL Normal 1.8-2.4 The Comment on above: Performed By: #### B CRAFT SUPERINTENDENT #### Laboratory [address] [address] [address] Carole Carvalho OCC BLD IMMUNO SCREENon 06-29 OCCULT BLOOD Positive Abnormal NEGATIVE [facility] Comment on above: Performed By: #### C VDTBH #### Laboratory [address] [place] [address] Dr. Carole Carvalho PROF CHEM 8 (BAS METB)on Anion gap [Moles/Vol] 4.7 mmol/L Normal [facility] Comment on above: Performed By: #### B CRAFT SUPERINTENDENT #### Laboratory [address] [address] [address] Carole Carvalho Calcium [Mass/Vol] 8.2 mg/dL Critically low 8.5-10.1 [facility] Comment on above: Performed By: #### B CRAFT SUPERINTENDENT #### Laboratory [address] [place] [address] Dr. Carole Carvalho Chloride [Moles/Vol] 96 mmol/L Critically low 98-107 [facility] Comment on above: Performed By: #### B CRAFT SUPERINTENDENT #### Laboratory [address] [address] [address] Carole Carvalho CO2 [Moles/Vol] 36.1 mmol/L Critically high 21.0-32.0 [facility] Comment on above: Performed By: #### B CRAFT SUPERINTENDENT #### Laboratory [address] [address] [address] Carole Carvalho Creatinine [Mass/Vol] 0.59 mg/dL Critically low 0.70-1.30 [facility] Comment on above: Performed By: #### B CRAFT SUPERINTENDENT #### Laboratory [address] [place] [address] Dr. Carole Carvalho EGFR-AF [place] >60 Normal >=60 [facility] Comment on above: Performed By: #### B CRAFT SUPERINTENDENT #### Laboratory [address] [place] [address] Dr. Carole Carvalho EGFR-NON AF [place] >60 Normal >=60 [facility] Comment on above: Performed By: #### B CRAFT SUPERINTENDENT #### Laboratory [address] [address] [address] Carole Carvalho Glucose [Mass/Vol] 104 mg/dL Normal 74-106 [facility] Comment on above: Performed By: #### B CRAFT SUPERINTENDENT #### Laboratory [address] [place] [address] Dr. Craole Carvalho Potassium [Moles/Vol] 3.8 mmol/L Normal 3.5-5.1 [facility] Comment on above: Performed By: #### B CRAFT SUPERINTENDENT #### Laboratory [address] [place] [address] Dr. Carole Carvalho Sodium [Moles/Vol] 133 mmol/L Critically low 136-145 [facility] Comment on above: Performed By: #### B CRAFT SUPERINTENDENT #### Laboratory [address] [place] [address] Dr. Carole Carvalho Urea nitrogen [Mass/Vol] 10.0 mg/dL Normal 7.0-18.0 [facility] Comment on above: Performed By: #### B CRAFT SUPERINTENDENT #### Laboratory [address] [place] [address] Dr. Carole Carvalho Urea nitrogen/Creatinine [Mass ratio] 16.9 mg/mg Normal [facility] Comment on above: Performed By: #### B CRAFT SUPERINTENDENT #### Laboratory [address] [place] [address] Dr. Carole Carvalho CBC AUTO DIFFon 07-23-2021 BASO # 0.0 103/ul Normal 0.0-0.1 [facility] Comment on above: Performed By: #### M G, BMP #### Laboratory [address] [place] [address] Dr. Carole Carvalho Basophils/100 WBC (Bld) 0.3 % Normal 0.2-2.0 [facility] Comment on above: Performed By: #### M Rico, BMP #### Laboratory [address] [place] [address] Dr. Carole Carvalho EO # 0.0 103/ul Normal 0.0-0.7 [facility] Comment on above: Performed By: #### M G, BMP #### Laboratory [address] [place] [address] Dr. Carole Carvalho Eosinophils/100 WBC (Bld) 0.0 % Critically low 0.9-7.0 [facility] Comment on above: Performed By: #### M G, BMP #### Laboratory [address] [place] [address] Dr. Carole Carvalho Erythrocyte distribution width (RBC) [Ratio] 14.6 % Normal 11.0-15.0 [facility] Comment on above: Performed By: #### M G, BMP #### Laboratory [address] [place] [address] Dr. Carole Carvalho Hematocrit (Bld) [Volume fraction] 33.8 % Critically low 42.0-54.0 [facility] Comment on above: Performed By: #### M G, BMP #### Laboratory [address] [place] [address] Dr. Carole Carvalho Hemoglobin (Bld) [Mass/Vol] 10.2 g/dL Critically low 14.0-18.0 [facility] Comment on above: Performed By: #### M G, BMP #### Laboratory [address] [place] [address] Dr. Carole Carvalho IG # 0.03 10e3/ul Normal 0.00-0.03 [facility] Comment on above: Performed By: #### M G, BMP #### Laboratory [address] [place] [address] Dr. Carole Carvalho IG % 0.4 % Normal 0.0-0.5 [facility] Comment on above: Performed By: #### M G, BMP #### Laboratory [address] [place] [address] Dr. Carole Carvalho LYMPH # 1.0 103/ul Critically low 1.2-3.8 The Comment on above: Performed By: #### M G, BMP #### Laboratory [address] [place] [address] Dr. Carole Carvalho Lymphocytes/100 WBC (Bld) 14.1 % Critically low 20.5-60.0 [facility] Comment on above: Performed By: #### M G, BMP #### Laboratory [address] [place] [address] Dr. Carole Carvalho MANUAL DIFF REQ NO Normal [facility] Comment on above: Performed By: #### M G, BMP #### Laboratory [address] [place] [address] Dr. Carole Carvalho MCH (RBC) [Entitic mass] 30.3 pg Normal 25.9-34.0 [facility] Comment on above: Performed By: #### M G, BMP #### Laboratory [address] [place] [address] Dr. Carole Carvalho MCHC (RBC) [Mass/Vol] 30.2 g/dL Normal 29.9-35.2 [facility] Comment on above: Performed By: #### M G, BMP #### Laboratory [address] [place] [address] Dr. Carole Carvalho MCV (RBC) [Entitic vol] 100.3 fL Critically high 80.0-94 .0 [facility] Comment on above: Performed By: #### M G, BMP #### Laboratory [address] [place] [address] Dr. Carole Carvalho MONO # 1.0 103/ul Critically high 0.3-0.8 [facility] Comment on above: Performed By: #### M G, BMP #### Laboratory [address] [place] [address] Dr. Carole Carvalho Monocytes/100 WBC (Bld) 13.2 % Critically high 1.7-12. 0 [facility] Comment on above: Performed By: #### M G, BMP #### Laboratory [address] [place] [address] Dr. Carole Carvalho NEUT # 5.3 103/ul Normal 1.4-6.5 [facility] Comment on above: Performed By: #### M G, BMP #### Laboratory [address] [place] [address] Dr. Carole Carvalho Neutrophils/100 WBC (Bld) 72.0 % Normal 43.0-75.0 [facility] Comment on above: Performed By: #### M G, BMP #### Laboratory [address] [address] [address] Carole Carvalho Platelet mean volume (Bld) [Entitic vol] 12.2 fL Normal 9.5-13.5 [facility] Comment on above: Performed By: #### M G, BMP #### Laboratory [address] [place] [address] Dr. Carole Carvalho PLT 120 103/ul Critically low 150-450 [facility] Comment on above: Performed By: #### M G, BMP #### Laboratory [address] [place] [address] Dr. Carole Carvalho RBC 3.37 106/ul Critically low 4.70-6.10 [facility] Comment on above: Performed By: #### M G, BMP #### Laboratory [address] [place] [address] Dr. Carole Carvalho WBC 7.3 103/ul Normal 4.0-11.0 [facility] Comment on above: Performed By: #### M G, BMP #### Laboratory [address] [place] [address] CHEST WO CONon [...] by: ANNA EUGENE Date: 2021-07-23 08:38 Normal [facility] CTA CHEST WO W CONon 022 CTA CHEST WO W CON EXAMINATION: CTA HNAANE ST W CON HISTORY: Acute hypoxemic respiratory failure [...] by: KATE BUSH Date: 2021-07-23 11:56 Normal [facility] MAGNESIUMon 07-23-2021 Magnesium [Mass/Vol] 2.1 mg/dL Normal 1.8-2.4 [facility] Comment on above: Performed By: #### C BC #### Laboratory [address] [address] [address] Carole Carvalho PROF CHEM 8 (BAS METB)on Anion gap [Moles/Vol] 3.3 mmol/L Normal [facility] Comment on above: Performed By: #### C BC #### Laboratory [address] [address] [address] Carole Carvalho Calcium [Mass/Vol] 8.3 mg/dL Critically low 8.5-10.1 [facility] Comment on above: Performed By: #### C BC #### Laboratory [address] [address] [address] Carole Carvalho Chloride [Moles/Vol] 95 mmol/L Critically low 98-107 [facility] Comment on above: Performed By: #### C BC #### Laboratory [address] [address] [address] Carole Carvalho CO2 [Moles/Vol] 38.7 mmol/L Critically high 21.0-32.0 [facility] Comment on above: Performed By: #### C BC #### Laboratory [address] [address] [address] Carole Carvalho Creatinine [Mass/Vol] 0.63 mg/dL Critically low 0.70-1.30 [facility] Comment on above: Performed By: #### C BC #### Laboratory [address] [address] [address] Carole Carvalho EGFR-AF [place] >60 Normal >=60 The Comment on above: Performed By: #### C BC #### Laboratory [address] [address] [address] Carole Carvalho EGFR-NON AF [place] >60 Normal >=60 [facility] Comment on above: Performed By: #### C BC #### Laboratory [address] [address] [address] Carole Carvalho Glucose [Mass/Vol] 95 mg/dL Normal 74-106 [facility] Comment on above: Performed By: #### C BC #### Laboratory [address] [address] [address] Carole Carvalho Potassium [Moles/Vol] 4.0 mmol/L Normal 3.5-5.1 [facility] Comment on above: Performed By: #### C BC #### Laboratory [address] [address] [address] Carole Carvalho Sodium [Moles/Vol] 133 mmol/L Critically low 136-145 [facility] Comment on above: Performed By: #### C BC #### Laboratory [address] [address] [address] Carole Carvalho Urea nitrogen [Mass/Vol] 15.0 mg/dL Normal 7.0-18.0 [facility] Comment on above: Performed By: #### C BC #### Laboratory [address] [address] [address] Carole Carvalho Urea nitrogen/Creatinine [Mass ratio] 23.8 mg/mg Normal [facility] Comment on above: Performed By: #### C BC #### Laboratory [address] [address] [address] Carole Carvalho XR CHEST 1 Von 07-23-2021 XR CHEST 1 V EXAM: XR CHEST 1 V 07/22/2021 11:20 PM EDT OH001 CLINICAL STATEMENT: SHORTNESS [...] clinically indicated. Electronically authenticated by: ANA MARIA BORJA Date: 2021-07-23 05:23 Normal [facility] CBC AUTO DIFFon 07-22-2021 BASO # 0.0 103/ul Normal 0.0-0.1 [facility] Comment on above: Performed By: #### L ACT #### Laboratory [address] [place] [address] Dr. Carole Carvalho Basophils/100 WBC (Bld) 0.3 % Normal 0.2-2.0 [facility] Comment on above: Performed By: #### L ACT #### Laboratory [address] [place] [address] Dr. Carole Carvalho EO # 0.0 103/ul Normal 0.0-0.7 [facility] Comment on above: Performed By: #### L ACT #### Laboratory [address] [place] [address] Dr. Carole Carvalho Eosinophils/100 WBC (Bld) 0.0 % Critically low 0.9-7.0 [facility] Comment on above: Performed By: #### L ACT #### Laboratory [address] [place] [address] Dr. Carole Carvalho Erythrocyte distribution width (RBC) [Ratio] 14.6 % Normal 11.0-15.0 [facility] Comment on above: Performed By: #### L ACT #### Laboratory [address] [place] [address] Dr. Carole Carvalho Hematocrit (Bld) [Volume fraction] 34.6 % Critically low 42.0-54.0 [facility] Comment on above: Performed By: #### L ACT #### Laboratory [address] [place] [address] Dr. Carole Carvalho Hemoglobin (Bld) [Mass/Vol] 10.6 g/dL Critically low 14.0-18.0 [facility] Comment on above: Performed By: #### L ACT #### Laboratory [address] [place] [address] Dr. Carole Carvalho IG # 0.02 10e3/ul Normal 0.00-0.03 [facility] Comment on above: Performed By: #### L ACT #### Laboratory [address] [place] [address] Dr. Carole Carvalho IG % 0.3 % Normal 0.0-0.5 [facility] Comment on above: Performed By: #### L ACT #### Laboratory [address] [place] [address] Dr. Carole Carvalho LYMPH # 0.6 103/ul Critically low 1.2-3.8 [facility] Comment on above: Performed By: #### L ACT #### Laboratory [address] [place] [address] Dr. Carole Carvalho Lymphocytes/100 WBC (Bld) 8.4 % Critically low 20.5-60.0 [facility] Comment on above: Result Comment: dif. not rqd. same as 07/21 Performed By: #### L ACT #### Laboratory [address] [place] [address] Dr. Carole Carvalho MANUAL DIFF REQ NO Normal [facility] Comment on above: Performed By: #### L ACT #### Laboratory [address] [place] [address] Dr. Carole Carvalho MCH (RBC) [Entitic mass] 30.6 pg Normal 25.9-34.0 [facility] Comment on above: Performed By: #### L ACT #### Laboratory [address] [place] [address] Dr. Carole Carvalho MCHC (RBC) [Mass/Vol] 30.6 g/dL Normal 29.9-35.2 [facility] Comment on above: Performed By: #### L ACT #### Laboratory [address] [place] [address] Dr. Carole Carvalho MCV (RBC) [Entitic vol] 100.0 fL Critically high 80.0-94 .0 The Comment on above: Performed By: #### L ACT #### Laboratory [address] [place] [address] Dr. Carole Carvalho MONO # 0.8 103/ul Normal 0.3-0.8 [facility] Comment on above: Performed By: #### L ACT #### Laboratory [address] [place] [address] Dr. Carole Carvalho Monocytes/100 WBC (Bld) 11.5 % Normal 1.7-12.0 [facility] Comment on above: Performed By: #### L ACT #### Laboratory [address] [place] [address] Dr. Carole Carvalho NEUT # 5.2 103/ul Normal 1.4-6.5 [facility] Comment on above: Performed By: #### L ACT #### Laboratory [address] [place] [address] Dr. Carole Carvalho Neutrophils/100 WBC (Bld) 79.5 % Critically high 43.0-75.0 [facility] Comment on above: Performed By: #### L ACT #### Laboratory [address] [place] [address] Dr. Carole Carvalho Platelet mean volume (Bld) [Entitic vol] 11.9 fL Normal 9.5-13.5 [facility] Comment on above: Performed By: #### L ACT #### Laboratory [address] [place] [address] Dr. Carole Carvalho PLT 115 103/ul Critically low 150-450 [facility] Comment on above: Performed By: #### L ACT #### Laboratory [address] [place] [address] Dr. Carole Carvalho RBC 3.46 106/ul Critically low 4.70-6.10 [facility] Comment on above: Performed By: #### L ACT #### Laboratory [address] [place] [address] Dr. Carole Carvalho WBC 6.5 103/ul Normal 4.0-11.0 [facility] Comment on above: Performed By: #### L ACT #### Laboratory [address] [place] [address] Dr. Carole Carvalho MAGNESIUMon 07-22-2021 Magnesium [Mass/Vol] 2.0 mg/dL Normal 1.8-2.4 [facility] Comment on above: Performed By: #### M G #### Laboratory [address] [place] [address] Dr. Carole Carvalho PROF CHEM 8 (BAS METB)on Anion gap [Moles/Vol] 6.2 mmol/L Normal [facility] Comment on above: Performed By: #### M G #### Laboratory [address] [place] [address] Dr. Carole Carvalho Calcium [Mass/Vol] 8.4 mg/dL Critically low 8.5-10.1 Th e Comment on above: Performed By: #### M G #### Laboratory [address] [address] [address] Carole Carvalho Chloride [Moles/Vol] 94 mmol/L Critically low 98-107 [facility] Comment on above: Performed By: #### M G #### Laboratory [address] [place] [address] Dr. Carole Carvalho CO2 [Moles/Vol] 39.0 mmol/L Critically high 21.0-32.0 [facility] Comment on above: Performed By: #### M G #### Laboratory [address] [place] [address] Dr. Carole Carvalho Creatinine [Mass/Vol] 0.72 mg/dL Normal 0.70-1.30 [facility] Comment on above: Performed By: #### M G #### Laboratory [address] [place] [address] Dr. Carole Carvalho EGFR-AF [place] >60 Normal >=60 The Comment on above: Performed By: #### M G #### Laboratory [address] [place] [address] Dr. Carole Carvalho EGFR-NON AF [place] >60 Normal >=60 The Comment on above: Performed By: #### M G #### Laboratory [address] [place] [address] Dr. Carole Carvalho Glucose [Mass/Vol] 97 mg/dL Normal 74-106 The Comment on above: Performed By: #### M G #### Laboratory [address] [place] [address] Dr. Caorle Carvalho Potassium [Moles/Vol] 4.2 mmol/L Normal 3.5-5.1 [facility] Comment on above: Performed By: #### M G #### Laboratory [address] [address] [address] Carole Carvalho Sodium [Moles/Vol] 135 mmol/L Critically low 136-145 Th e Comment on above: Performed By: #### M G #### Laboratory [address] [place] [address] Dr. Carole Carvalho Urea nitrogen [Mass/Vol] 16.0 mg/dL Normal 7.0-18.0 [facility] Comment on above: Performed By: #### M G #### Laboratory [address] [place] [address] Dr. Carole Carvalho Urea nitrogen/Creatinine [Mass ratio] 22.2 mg/mg Normal [facility] Comment on above: Performed By: #### M G #### Laboratory [address] [place] [address] Dr. Carole Carvalho BLOOD CULTURE ID PANELon A. baumannii Not detected [facility] Comment on above: Performed By: #### L ACT #### Laboratory [address] [place] [address] Dr. Carole Carvalho BCID CONTROLS PASSED Normal [facility] Comment on above: Performed By: #### L ACT #### Laboratory [address] [place] [address] Dr. Carole Carvalho BCIDBTHD BLOOD CULTURE BOTTLE INFORMATION Normal [facility] Comment on above: Performed By: #### L ACT #### Laboratory [address] [place] [address] Dr. Carole Carvalho BCIDHD1 ANTIMICROBIAL RESIST ANCE GENES Normal [facility] Comment on above: Performed By: #### L ACT #### Laboratory [address] [place] [address] Dr. Carole Carvalho BCIDHD2 SEE BELOW Normal [facility] Comment on above: Result Comment: KPC- carbapenem resistance gene, mecA- methecillin resistance gene, van A/B- vancomycin resistance gene Note: Antimicrobial resitance can occur via multiple mechanisms. A Not Detected result for the [employer] antomicrobial resistance gene assays does not indicate antimicrobial susceptibility. Subculturing is required for specis identificationand susceptibility testing of isolates. Performed By: #### L ACT #### Laboratory [address] [place] [address] Dr. Carole Carvalho BCIDHD3 Positive Normal [facility] Comment on above: Performed By: #### L ACT #### Laboratory [address] [place] [address] Dr. Carole Carvalho BCIDHD4 Negative Normal [facility] Comment on above: Performed By: #### L ACT #### Laboratory [address] [place] [address] Dr. Carole Carvalho BCIDHD5 YEAST Normal [facility] Comment on above: Performed By: #### L ACT #### Laboratory [address] [place] [address] Dr. Carole Carvalho BCIDHD6 SEE BELOW [facility] Comment on above: Result Comment: Note : All genus and species BCID [employer] results will be verified post subculturing via Maldi-Tof MS testing methodology. Performed By: #### L ACT #### Laboratory [address] [place] [address] Dr. Carole Carvalho Bottle Set: Set 1 Normal [facility] Comment on above: Performed By: #### L ACT #### Laboratory [address] [place] [address] Dr. Carole Carvalho Bottle: Anaerobic Normal [facility] Comment on above: Performed By: #### L ACT #### Laboratory [address] [place] [address] Dr. Carole Carvalho Claudia albicans Not detected Normal [facility] Comment on above: Performed By: #### L ACT #### Laboratory [address] [place] [address] Dr. Carole Carvalho Claudia glabrata Not detected Normal [facility] Comment on above: Performed By: #### L ACT #### Laboratory [address] [place] [address] Dr. Carole Carvalho Claudia Krusei Not detected Normal [facility] Comment on above: Performed By: #### L ACT #### Laboratory [address] [address] [address] Carole Carvalho Claudia Parapsilosis Not detected Normal [facility] Comment on above: Performed By: #### L ACT #### Laboratory [address] [place] [address] Dr. Carole Carvalho Claudia Tropicalis Not detected Normal [facility] Comment on above: Performed By: #### L ACT #### Laboratory [address] [address] [address] Carole Carvalho E. Cloacae complex Not detected Normal The Comment on above: Performed By: #### L ACT #### Laboratory [address] [place] [address] Dr. Carole Carvalho Enterobacteriaceae Not detected Normal [facility] Comment on above: Performed By: #### L ACT #### Laboratory [address] [place] [address] Dr. Carole Carvalho Enterococcus Not detected Normal [facility] Comment on above: Performed By: #### L ACT #### Laboratory [address] [place] [address] Dr. Carole Carvalho Escheria coli Not detected Normal [facility] Comment on above: Performed By: #### L ACT #### Laboratory [address] [place] [address] Dr. Carole Carvalho K. oxytoca Not detected Normal [facility] Comment on above: Performed By: #### L ACT #### Laboratory [address] [place] [address] Dr. Carole Carvalho K. pneumoniae Not detected Normal The Comment on above: Performed By: #### L ACT #### Laboratory [address] [place] [address] Dr. Carole Carvalho KPC Resistant Gene Not Applicable Normal [facility] Comment on above: Performed By: #### L ACT #### Laboratory [address] [place] [address] Dr. Carole Carvalho List. monocytogenes Not detected Normal The Comment on above: Performed By: #### L ACT #### Laboratory [address] [place] [address] Dr. Carole Carvalho mecA Resistant Gene Not Applicable Normal [facility] Comment on above: Performed By: #### L ACT #### Laboratory [address] [place] [address] Dr. Carole Carvalho Proteus Not detected Normal [facility] Comment on above: Performed By: #### L ACT #### Laboratory [address] [place] [address] Dr. Carole Carvalho Pseud. aeruginosa Not detected Normal [facility] Comment on above: Performed By: #### L ACT #### Laboratory [address] [place] [address] Dr. Carole Carvalho Seratia marcescens Not detected Normal [facility] Comment on above: Performed By: #### L ACT #### Laboratory [address] [place] [address] Dr. Carole Carvalho Site: lt. hand Normal The Comment on above: Performed By: #### L ACT #### Laboratory [address] [place] [address] Dr. Carole Carvalho Staph. aureus Detected Critically abnormal The Comment on above: Performed By: #### L ACT #### Laboratory [address] [place] [address] Dr. Carole Carvalho Staphylococcus Detected Critically abnormal The Comment on above: Performed By: #### L ACT #### Laboratory [address] [place] [address] Dr. Carole Carvalho Strep. agalactiae Not detected Normal [facility] Comment on above: Performed By: #### L ACT #### Laboratory [address] [place] [address] Dr. Carole Carvalho Strep. pneumoniae Not detected Normal The Comment on above: Performed By: #### L ACT #### Laboratory [address] [place] [address] Dr. Carole Carvalho Strep. pyogenes Not detected Normal The Comment on above: Performed By: #### L ACT #### Laboratory [address] [place] [address] Dr. Carole Carvalho Streptococcus Not detected Normal [facility] Comment on above: Performed By: #### L ACT #### Laboratory [address] [place] [address] Dr. Carole Ackerman/Regulo Magaña. Gene Not Applicable Normal [facility] Comment on above: Performed By: #### L ACT #### Laboratory [address] [place] [address] Dr. Carole Carvalho CBC W MANUAL DIFFon 07-22-19 22 ANISOCYTOSIS 1+ Normal [facility] Comment on above: Performed By: #### M G, BMP #### Laboratory [address] [place] [address] Dr. Carole Carvalho ATYPICAL LYMPH # Normal [facility] Comment on above: Performed By: #### M G, BMP #### Laboratory [address] [place] [address] Dr. Carole Carvalho ATYPICAL LYMPH % Normal [facility] Comment on above: Performed By: #### M G, BMP #### Laboratory [address] [place] [address] Dr. Carole Carvalho BAND # 0.1 103/ul Normal 0.0-0.3 [facility] Comment on above: Performed By: #### M G, BMP #### Laboratory [address] [place] [address] Dr. Carole Carvalho BAND % 1 % Normal 0-5 The Comment on above: Performed By: #### M G, BMP #### Laboratory [address] [place] [address] Dr. Carole Carvalho BASOM # 0.00 103/ul Normal 0.00-0.10 The Comment on above: Performed By: #### M G, BMP #### Laboratory [address] [place] [address] Dr. Carole Carvalho BASOM % 0.0 % Critically low 0.2-2.0 [facility] Comment on above: Performed By: #### M G, BMP #### Laboratory [address] [address] [address] Carole Carvalho BLAST # Normal [facility] Comment on above: Performed By: #### M G, BMP #### Laboratory [address] [place] [address] Dr. Carole Carvalho BLAST % Normal [facility] Comment on above: Performed By: #### M G, BMP #### Laboratory [address] [place] [address] Dr. Carole Carvalho CORRECTED WBC Normal 4.0-11.0 [facility] Comment on above: Performed By: #### M G, BMP #### Laboratory [address] [place] [address] Dr. Carole Carvalho EOS # 0.00 103/ul Normal 0.00-0.70 [facility] Comment on above: Performed By: #### M G, BMP #### Laboratory [address] [place] [address] Dr. Carole Carvalho EOS% 0.0 % Critically low 0.9-7.0 [facility] Comment on above: Performed By: #### M G, BMP #### Laboratory [address] [place] [address] Dr. Carole Carvalho HCT 36.0 % Critically low 42.0-54.0 [facility] Comment on above: Performed By: #### M G, BMP #### Laboratory [address] [place] [address] Dr. Carole Carvalho HGB 11.2 g/dl Critically low 14.0-18.0 [facility] Comment on above: Performed By: #### M G, BMP #### Laboratory [address] [place] [address] Dr. Carole Carvalho LYMPHM # 0.43 103/ul Critically low 1.20-3.80 [facility] Comment on above: Performed By: #### M G, BMP #### Laboratory [address] [place] [address] Dr. Carole Carvalho LYMPHM% 4.0 % Critically low 20.5-60.0 [facility] Comment on above: Performed By: #### M G, BMP #### Laboratory [address] [place] [address] Dr. Carole Carvalho MCH 30.7 pg Normal 25.9-34.0 [facility] Comment on above: Performed By: #### M G, BMP #### Laboratory [address] [place] [address] Dr. Carole Carvalho MCHC 31.1 g/dl Normal 29.9-35.2 The Comment on above: Performed By: #### M G, BMP #### Laboratory [address] [place] [address] Dr. Carole Carvalho MCV 98.6 fL Critically high 80.0-94.0 [facility] Comment on above: Performed By: #### M G, BMP #### Laboratory [address] [place] [address] Dr. Carole Carvalho METAMYELOCYTE # Normal The Comment on above: Performed By: #### M G, BMP #### Laboratory [address] [place] [address] Dr. Carole Carvalho METAMYELOCYTE % Normal [facility] Comment on above: Performed By: #### M G, BMP #### Laboratory [address] [place] [address] Dr. Carole Carvalho MONOM# 0.96 103/ul Critically high 0.30-0.80 [facility] Comment on above: Performed By: #### M G, BMP #### Laboratory [address] [place] [address] Dr. Carole Carvalho MONOM% 9.0 % Normal 1.7-12.0 The Comment on above: Performed By: #### M G, BMP #### Laboratory [address] [place] [address] Dr. Carole Carvalho MPV 11.6 fL Normal 9.5-13.5 [facility] Comment on above: Performed By: #### M G, BMP #### Laboratory [address] [place] [address] Dr. Carole Carvalho MYELOCYTE # Normal The Comment on above: Performed By: #### M G, BMP #### Laboratory [address] [place] [address] Dr. Carole Carvalho MYELOCYTE % Normal [facility] Comment on above: Performed By: #### M G, BMP #### Laboratory [address] [place] [address] Dr. Carole Carvalho NRBC Normal [facility] Comment on above: Performed By: #### M G, BMP #### Laboratory [address] [place] [address] Dr. Carole Carvalho PLT 113 103/ul Critically low 150-450 [facility] Comment on above: Performed By: #### M G, BMP #### Laboratory [address] [place] [address] Dr. Carole Carvalho RBC 3.65 106/ul Critically low 4.70-6.10 [facility] Comment on above: Performed By: #### M G, BMP #### Laboratory [address] [place] [address] Dr. Carole Carvalho RDW 14.6 % Normal 11.0-15.0 [facility] Comment on above: Performed By: #### M G, BMP #### Laboratory [address] [place] [address] Dr. Carole Carvalho SEG # 9.20 103/ul Critically high 1.40-6.50 [facility] Comment on above: Performed By: #### M G, BMP #### Laboratory [address] [place] [address] Dr. Carole Carvalho SEG % 86.0 % Critically high 43.0-75.0 [facility] Comment on above: Performed By: #### M G, BMP #### Laboratory [address] [place] [address] Dr. Carole Carvalho WBC 10.7 103/ul Normal 4.0-11.0 [facility] Comment on above: Performed By: #### M G, BMP #### Laboratory [address] [place] [address] Dr. Carole Carvalho MAGNESIUMon 07-21-2021 Magnesium [Mass/Vol] 2.0 mg/dL Normal 1.8-2.4 [facility] Comment on above: Performed By: #### B CRAFT SUPERINTENDENT #### Laboratory [address] [place] [address] Dr. Carole Carvalho PROF CHEM 8 (BAS METB)on Anion gap [Moles/Vol] 1.9 mmol/L Normal [facility] Comment on above: Performed By: #### C VDTBH #### Laboratory [address] [place] [address] Dr. Carole Carvalho Calcium [Mass/Vol] 8.7 mg/dL Normal 8.5-10.1 The Comment on above: Performed By: #### C VDTBH #### Laboratory [address] [place] [address] Dr. Carole Carvalho Chloride [Moles/Vol] 91 mmol/L Critically low 98-107 [facility] Comment on above: Performed By: #### C VDTBH #### Laboratory [address] [place] [address] Dr. Carole Carvalho CO2 [Moles/Vol] 41.4 mmol/L Critically high 21.0-32.0 [facility] Comment on above: Performed By: #### C VDTBH #### Laboratory [address] [place] [address] Dr. Carole Carvalho Creatinine [Mass/Vol] 0.90 mg/dL Normal 0.70-1.30 The Comment on above: Performed By: #### C VDTBH #### Laboratory [address] [place] [address] Dr. Carole Carvalho EGFR-AF [place] >60 Normal >=60 The Comment on above: Performed By: #### C VDTBH #### Laboratory [address] [place] [address] Dr. Carole Carvalho EGFR-NON AF [place] >60 Normal >=60 [facility] Comment on above: Performed By: #### C VDTBH #### Laboratory [address] [place] [address] Dr. Carole Carvalho Glucose [Mass/Vol] 115 mg/dL Critically high 74-106 [facility] Comment on above: Performed By: #### C VDTBH #### Laboratory [address] [place] [address] Dr. Carole Carvalho Potassium [Moles/Vol] 4.3 mmol/L Normal 3.5-5.1 [facility] Comment on above: Performed By: #### C VDTBH #### Laboratory [address] [place] [address] Dr. Carole Carvalho Sodium [Moles/Vol] 130 mmol/L Critically low 136-145 [facility] Comment on above: Performed By: #### C VDTBH #### Laboratory [address] [place] [address] Dr. Carole Carvalho Urea nitrogen [Mass/Vol] 14.0 mg/dL Normal 7.0-18.0 [facility] Comment on above: Performed By: #### C VDTBH #### Laboratory [address] [place] [address] Dr. Carole Carvalho Urea nitrogen/Creatinine [Mass ratio] 15.6 mg/mg Normal [facility] Comment on above: Performed By: #### C VDTBH #### Laboratory [address] [place] [address] Dr. Carole Carvalho CBC AUTO DIFFon 07-20-2021 BASO # 0.0 103/ul Normal 0.0-0.1 [facility] Comment on above: Performed By: #### B CRAFT SUPERINTENDENT #### Laboratory [address] [place] [address] Dr. Carole Carvalho Basophils/100 WBC (Bld) 0.3 % Normal 0.2-2.0 [facility] Comment on above: Performed By: #### B CRAFT SUPERINTENDENT #### Laboratory [address] [place] [address] Dr. Carole Carvalho EO # 0.0 103/ul Normal 0.0-0.7 [facility] Comment on above: Performed By: #### B CRAFT SUPERINTENDENT #### Laboratory [address] [place] [address] Dr. Carole Carvalho Eosinophils/100 WBC (Bld) 0.0 % Critically low 0.9-7.0 [facility] Comment on above: Performed By: #### B CRAFT SUPERINTENDENT #### Laboratory [address] [place] [address] Dr. Carole Carvalho Erythrocyte distribution width (RBC) [Ratio] 14.6 % Normal 11.0-15.0 [facility] Comment on above: Performed By: #### B CRAFT SUPERINTENDENT #### Laboratory [address] [place] [address] Dr. Carole Carvalho Hematocrit (Bld) [Volume fraction] 35.2 % Critically low 42.0-54.0 [facility] Comment on above: Performed By: #### B CRAFT SUPERINTENDENT #### Laboratory [address] [place] [address] Dr. Carole Carvalho Hemoglobin (Bld) [Mass/Vol] 10.7 g/dL Critically low 14.0-18.0 [facility] Comment on above: Performed By: #### B CRAFT SUPERINTENDENT #### Laboratory [address] [place] [address] Dr. Carole Carvalho IG # 0.02 10e3/ul Normal 0.00-0.03 [facility] Comment on above: Performed By: #### B CRAFT SUPERINTENDENT #### Laboratory [address] [place] [address] Dr. Carole Carvalho IG % 0.3 % Normal 0.0-0.5 The Comment on above: Performed By: #### B CRAFT SUPERINTENDENT #### Laboratory [address] [place] [address] Dr. Carole Carvalho LYMPH # 0.4 103/ul Critically low 1.2-3.8 The Comment on above: Performed By: #### B CRAFT SUPERINTENDENT #### Laboratory [address] [place] [address] Dr. Carole Carvalho Lymphocytes/100 WBC (Bld) 5.5 % Critically low 20.5-60.0 [facility] Comment on above: Performed By: #### B CRAFT SUPERINTENDENT #### Laboratory [address] [place] [address] Dr. Carole Carvalho MANUAL DIFF REQ NO Normal [facility] Comment on above: Performed By: #### B CRAFT SUPERINTENDENT #### Laboratory [address] [place] [address] Dr. Carole Carvalho MCH (RBC) [Entitic mass] 30.2 pg Normal 25.9-34.0 [facility] Comment on above: Performed By: #### B CRAFT SUPERINTENDENT #### Laboratory [address] [place] [address] Dr. Carole Carvalho MCHC (RBC) [Mass/Vol] 30.4 g/dL Normal 29.9-35.2 [facility] Comment on above: Performed By: #### B CRAFT SUPERINTENDENT #### Laboratory [address] [place] [address] Dr. Carole Carvalho MCV (RBC) [Entitic vol] 99.4 fL Critically high 80.0-94 .0 [facility] Comment on above: Performed By: #### B CRAFT SUPERINTENDENT #### Laboratory [address] [place] [address] Dr. Carole Carvalho MONO # 0.7 103/ul Normal 0.3-0.8 [facility] Comment on above: Performed By: #### B CRAFT SUPERINTENDENT #### Laboratory [address] [place] [address] Dr. Carole Carvalho Monocytes/100 WBC (Bld) 8.4 % Normal 1.7-12.0 [facility] Comment on above: Performed By: #### B CRAFT SUPERINTENDENT #### Laboratory [address] [place] [address] Dr. Carole Carvalho NEUT # 6.7 103/ul Critically high 1.4-6.5 [facility] Comment on above: Performed By: #### B CRAFT SUPERINTENDENT #### Laboratory [address] [place] [address] Dr. Carole Carvalho Neutrophils/100 WBC (Bld) 85.5 % Critically high 43.0-75.0 [facility] Comment on above: Performed By: #### B CRAFT SUPERINTENDENT #### Laboratory [address] [place] [address] Dr. Carole Carvalho Platelet mean volume (Bld) [Entitic vol] 11.7 fL Normal 9.5-13.5 [facility] Comment on above: Performed By: #### B CRAFT SUPERINTENDENT #### Laboratory [address] [place] [address] Dr. Carole Carvalho PLT 137 103/ul Critically low 150-450 The Comment on above: Performed By: #### B CRAFT SUPERINTENDENT #### Laboratory [address] [place] [address] Dr. Carole Carvalho RBC 3.54 106/ul Critically low 4.70-6.10 [facility] Comment on above: Performed By: #### B CRAFT SUPERINTENDENT #### Laboratory [address] [place] [address] Dr. Carole Carvalho WBC 7.9 103/ul Normal 4.0-11.0 The Comment on above: Performed By: #### B CRAFT SUPERINTENDENT #### Laboratory [address] [place] [address] Dr. Carole Carvalho CULTURE BLOODon 07-20-2021 Microscopic examination of blood, culture Culture Observations: Positive blood culture, both bottles. BCID=Staph. aureus. Sent to [facility]. Normal [facility] Comment on above: Performed By: #### L ACT #### Laboratory [address] [place] [address] Dr. Carole Carvalho Microscopic examination of blood, culture Culture Observations: Positive blood culture, both bottles. BCID=Staph. aureus. Sent to [facility]. Normal [facility] Comment on above: Performed By: #### L ACT #### Laboratory [address] [place] [address] Dr. Carole Carvalho LACTATE/LACTIC ACIDon 2021 Lactate [Moles/Vol] 0.7 mmol/L Normal 0.4-1.9 [facility] Comment on above: Performed By: #### L ACT #### Laboratory [address] [place] [address] Dr. Carole Carvalho Lactate [Moles/Vol] 0.6 mmol/L Normal 0.4-1.9 [facility] Comment on above: Performed By: #### C VDTBH #### Laboratory [address] [place] [address] Dr. Carole Carvalho LIVER PROFILEon 07-20-2021 Albumin [Mass/Vol] 2.3 g/dL Critically low 3.4-5.0 Th e Comment on above: Performed By: #### M G #### Laboratory [address] [place] [address] Dr. Carole Carvalho Albumin/Globulin [Mass ratio] 0.7 {ratio} Normal [facility] Comment on above: Performed By: #### M G #### Laboratory [address] [place] [address] Dr. Carole Carvalho ALP [Catalytic activity/Vol] 87 U/L Normal 46-116 [facility] Comment on above: Performed By: #### M G #### Laboratory [address] [place] [address] Dr. Carole Carvalho ALT [Catalytic activity/Vol] 28 U/L Normal 16-63 [facility] Comment on above: Performed By: #### M G #### Laboratory [address] [place] [address] Dr. Carole Carvalho AST [Catalytic activity/Vol] 21 U/L Normal 15-37 [facility] Comment on above: Performed By: #### M G #### Laboratory [address] [place] [address] Dr. Carole Carvalho BILI, CONJUGATED 0.2 mg/dL Normal 0.0-0.2 [facility] Comment on above: Performed By: #### M G #### Laboratory [address] [place] [address] Dr. Carole Carvalho Bilirubin [Mass/Vol] 0.8 mg/dL Normal 0.2-1.0 [facility] Comment on above: Performed By: #### M G #### Laboratory [address] [place] [address] Dr. Carole Carvalho Globulin (S) [Mass/Vol] 3.2 g/dL Normal T [facility] Comment on above: Performed By: #### M G #### Laboratory [address] [place] [address] Dr. Carole Carvalho Protein [Mass/Vol] 5.5 g/dL Critically low 6.4-8.2 [facility] Comment on above: Performed By: #### M G #### Laboratory [address] [place] [address] Dr. Carole Carvalho MAGNESIUMon 07-20-2021 Magnesium [Mass/Vol] 1.7 mg/dL Critically low 1.8-2.4 [facility] Comment on above: Performed By: #### C VDTBH #### Laboratory [address] [place] [address] Dr. Carole Carvalho PROF CHEM 8 (BAS METB)on Anion gap [Moles/Vol] 5.5 mmol/L Normal [facility] Comment on above: Performed By: #### C VDTBH #### Laboratory [address] [place] [address] Dr. Carole Carvalho Calcium [Mass/Vol] 7.7 mg/dL Critically low 8.5-10.1 [facility] Comment on above: Performed By: #### C VDTBH #### Laboratory [address] [place] [address] Dr. Carole Carvalho Chloride [Moles/Vol] 91 mmol/L Critically low 98-107 [facility] Comment on above: Performed By: #### C VDTBH #### Laboratory [address] [place] [address] Dr. Carole Carvalho CO2 [Moles/Vol] 38.5 mmol/L Critically high 21.0-32.0 [facility] Comment on above: Performed By: #### C VDTBH #### Laboratory [address] [place] [address] Dr. Carole Carvalho Creatinine [Mass/Vol] 0.67 mg/dL Critically low 0.70-1.30 [facility] Comment on above: Performed By: #### C VDTBH #### Laboratory [address] [place], [place] [id number] Dr. Carole Carvalho EGFR-AF [place] >60 Normal >=60 [facility] Comment on above: Performed By: #### C VDTBH #### Laboratory [address] [place] [address] Dr. Carole Carvalho EGFR-NON AF [place] >60 Normal >=60 [facility] Comment on above: Performed By: #### C VDTBH #### Laboratory [address] [place] [address] Dr. Carole Carvalho Glucose [Mass/Vol] 97 mg/dL Normal 74-106 [facility] Comment on above: Performed By: #### C VDTBH #### Laboratory [address] [place] [address] Dr. Carole Carvalho Potassium [Moles/Vol] 4.0 mmol/L Normal 3.5-5.1 [facility] Comment on above: Performed By: #### C VDTBH #### Laboratory [address] [place] [address] Dr. Carole Carvalho Sodium [Moles/Vol] 131 mmol/L Critically low 136-145 Th [facility] Comment on above: Performed By: #### C VDTBH #### Laboratory [address] [place] [address] Dr. Carole Carvalho Urea nitrogen [Mass/Vol] 13.0 mg/dL Normal 7.0-18.0 [facility] Comment on above: Performed By: #### C VDTBH #### Laboratory [address] [place] [address] Dr. Carole Carvalho Urea nitrogen/Creatinine [Mass ratio] 19.4 mg/mg Normal [facility] Comment on above: Performed By: #### C VDTBH #### Laboratory [address] [place] [address] Dr. Carole Carvalho UA (CLEAN/CATCH) BUFFING WHEEL OPERATOR/MICRO I F IND.on 07-20-2021 Bilirubin Ql (U) Negative Normal NEGATIVE [facility] Comment on above: Performed By: #### L ACT #### Laboratory [address] [place] [address] Dr. Carole Carvalho Clarity (U) CLEAR Normal CLEAR [facility] Comment on above: Performed By: #### L ACT #### Laboratory [address] [place] [address] Dr. Carole Carvalho Color (U) YELLOW Normal YELLOW [facility] Comment on above: Performed By: #### L ACT #### Laboratory [address] [place] [address] Dr. Carole Carvalho Glucose Ql (U) Negative Normal NEGATIVE [facility] Comment on above: Performed By: #### L ACT #### Laboratory [address] [place] [address] Dr. Carole Carvalho Hemoglobin Ql (U) Negative Normal NEGATIVE [facility] Comment on above: Performed By: #### L ACT #### Laboratory [address] [place] [address] Dr. Carole Carvalho Ketones Ql (U) Negative Normal NEGATIVE [facility] Comment on above: Performed By: #### L ACT #### Laboratory [address] [place] [address] Dr. Carole Carvalho LEUKOCYTES Negative Normal NEGATIVE [facility] Comment on above: Performed By: #### L ACT #### Laboratory [address] [place] [address] Dr. Carole Carvalho Nitrite Ql (U) Negative Normal NEGATIVE [facility] Comment on above: Performed By: #### L ACT #### Laboratory [address] [place] [address] Dr. Carole Carvalho pH (U) 8.0 [pH] Normal 5-9 [facility] Comment on above: Performed By: #### L ACT #### Laboratory [address] [place] [address] Dr. Carole Carvalho SPEC GRAVITY 1.015 Normal 1.005-<=1. 025 [facility] Comment on above: Performed By: #### L ACT #### Laboratory [address] [place] [address] Dr. Carole Carvalho UA PROTEIN Negative Normal NEGATIVE/ TRACE The Comment on above: Performed By: #### L ACT #### Laboratory [address] [place] [address] Dr. Carole Carvalho UR MICRO IND NOT INDICATED Normal The Comment on above: Performed By: #### L ACT #### Laboratory [address] [place] [address] Dr. Carole Carvalho Urobilinogen Qn (U) 1.0 {Anjali'U}/dL Normal 0.2 - 1. 0 [facility] Comment on above: Performed By: #### L ACT #### Laboratory [address] [place] [address] Dr. Carole Carvalho XR CHEST 2 Von [...] bilateral pleural effusions Electronically authenticated by: ANNA UEGENE Date: 2021-07-20 07:12 Normal The CBC AUTO DIFFon 07-19-2021 BASO # 0.0 103/ul Normal 0.0-0.1 [facility] Comment on above: Performed By: #### C BC #### Laboratory [address] [place] [address] Dr. Carole Carvalho Basophils/100 WBC (Bld) 0.2 % Normal 0.2-2.0 [facility] Comment on above: Performed By: #### C BC #### Laboratory [address] [place] [address] Dr. Carole Carvalho EO # 0.0 103/ul Normal 0.0-0.7 [facility] Comment on above: Performed By: #### C BC #### Laboratory [address] [place] [address] Dr. Carole Carvalho Eosinophils/100 WBC (Bld) 0.0 % Critically low 0.9-7.0 [facility] Comment on above: Performed By: #### C BC #### Laboratory [address] [place] [address] Dr. Carole Carvalho Erythrocyte distribution width (RBC) [Ratio] 14.6 % Normal 11.0-15.0 [facility] Comment on above: Performed By: #### C BC #### Laboratory [address] [place] [address] Dr. Carole Carvalho Hematocrit (Bld) [Volume fraction] 35.4 % Critically low 42.0-54.0 [facility] Comment on above: Performed By: #### C BC #### Laboratory [address] [place] [address] Dr. Carole Carvalho Hemoglobin (Bld) [Mass/Vol] 10.9 g/dL Critically low 14.0-18.0 [facility] Comment on above: Performed By: #### C BC #### Laboratory [address] [place] [address] Dr. Carole Carvalho IG # 0.03 10e3/ul Normal 0.00-0.03 [facility] Comment on above: Performed By: #### C BC #### Laboratory [address] [place] [address] Dr. Carole Carvalho IG % 0.3 % Normal 0.0-0.5 [facility] Comment on above: Performed By: #### C BC #### Laboratory [address] [place] [address] Dr. Carole Carvalho LYMPH # 0.3 103/ul Critically low 1.2-3.8 [facility] Comment on above: Performed By: #### C BC #### Laboratory [address] [place] [address] Dr. Carole Carvalho Lymphocytes/100 WBC (Bld) 3.1 % Critically low 20.5-60.0 [facility] Comment on above: Performed By: #### C BC #### Laboratory [address] [place] [address] Dr. Carole Carvalho MANUAL DIFF REQ NO Normal [facility] Comment on above: Performed By: #### C BC #### Laboratory [address] [address] [address] Carole Carvalho MCH (RBC) [Entitic mass] 30.5 pg Normal 25.9-34.0 [facility] Comment on above: Performed By: #### C BC #### Laboratory [address] [place] [address] Dr. Carole Carvalho MCHC (RBC) [Mass/Vol] 30.8 g/dL Normal 29.9-35.2 [facility] Comment on above: Performed By: #### C BC #### Laboratory [address] [place] [address] Dr. Carole Carvalho MCV (RBC) [Entitic vol] 99.2 fL Critically high 80.0-94 .0 [facility] Comment on above: Performed By: #### C BC #### Laboratory [address] [place] [address] Dr. Carole Carvalho MONO # 1.2 103/ul Critically high 0.3-0.8 [facility] Comment on above: Performed By: #### C BC #### Laboratory [address] [place] [address] Dr. Carole Carvalho Monocytes/100 WBC (Bld) 10.8 % Normal 1.7-12.0 [facility] Comment on above: Performed By: #### C BC #### Laboratory [address] [place] [address] Dr. Carole Carvalho NEUT # 9.2 103/ul Critically high 1.4-6.5 [facility] Comment on above: Performed By: #### C BC #### Laboratory [address] [place] [address] Dr. Carole Carvalho Neutrophils/100 WBC (Bld) 85.6 % Critically high 43.0-75.0 [facility] Comment on above: Performed By: #### C BC #### Laboratory [address] [place] [address] Dr. Carole Carvalho Platelet mean volume (Bld) [Entitic vol] 11.4 fL Normal 9.5-13.5 [facility] Comment on above: Performed By: #### C BC #### Laboratory [address] [address] [address] Carole Carvalho PLT 157 103/ul Normal 150-450 [facility] Comment on above: Performed By: #### C BC #### Laboratory [address] [place] [address] Dr. Carole Carvalho RBC 3.57 106/ul Critically low 4.70-6.10 The Comment on above: Performed By: #### C BC #### Laboratory [address] [address] [address] Carole Carvalho WBC 10.7 103/ul Normal 4.0-11.0 [facility] Comment on above: Performed By: #### C BC #### Laboratory [address] [place] [address] Dr. Carole Carvalho IRON AND TIBCon 07-19-2021 % SATURATION 8.6 % Normal [facility] Comment on above: Performed By: #### F ETIBC, B12FOL #### Laboratory [address] [place] [address] Dr. Carole Carvalho Iron [Mass/Vol] 35.0 ug/dL Critically low 65.0-175.0 [facility] Comment on above: Performed By: #### F ETIBC, B12FOL #### Laboratory [address] [place] [address] Dr. Carole Carvalho TIBC DIRECT 407.0 ug/dL Normal 250.0-450. 0 [facility] Comment on above: Performed By: #### F ETIBC, B12FOL #### Laboratory [address] [place] [address] Dr. Carole Carvalho MAGNESIUMon 07-19-2021 Magnesium [Mass/Vol] 1.7 mg/dL Critically low 1.8-2.4 The Comment on above: Performed By: #### M G #### Laboratory [address] [place] [address] Dr. Carole Carvalho PROF CHEM 8 (BAS METB)on Anion gap [Moles/Vol] 6.0 mmol/L Normal [facility] Comment on above: Performed By: #### M G #### Laboratory [address] [place] [address] Dr. Carole Carvalho Calcium [Mass/Vol] 7.9 mg/dL Critically low 8.5-10.1 [facility] Comment on above: Performed By: #### M G #### Laboratory [address] [place] [address] Dr. Carole Carvalho Chloride [Moles/Vol] 92 mmol/L Critically low 98-107 [facility] Comment on above: Performed By: #### M G #### Laboratory [address] [place] [address] Dr. Carole Carvalho CO2 [Moles/Vol] 39.5 mmol/L Critically high 21.0-32.0 [facility] Comment on above: Performed By: #### M G #### Laboratory [address] [place] [address] Dr. Carole Carvalho Creatinine [Mass/Vol] 0.64 mg/dL Critically low 0.70-1.30 [facility] Comment on above: Performed By: #### M G #### Laboratory [address] [place] [address] Dr. Carole Carvalho EGFR-AF [place] >60 Normal >=60 [facility] Comment on above: Performed By: #### M G #### Laboratory [address] [place] [address] Dr. Carole Carvalho EGFR-NON AF [place] >60 Normal >=60 [facility] Comment on above: Performed By: #### M G #### Laboratory [address] [place] [address] Dr. Carole Carvalho Glucose [Mass/Vol] 110 mg/dL Critically high 74-106 [facility] Comment on above: Performed By: #### M G #### Laboratory [address] [place] [address] Dr. Carole Carvalho Potassium [Moles/Vol] 3.5 mmol/L Normal 3.5-5.1 [facility] Comment on above: Performed By: #### M G #### Laboratory [address] [place] [address] Dr. Carole Carvalho Sodium [Moles/Vol] 134 mmol/L Critically low 136-145 Th [facility] Comment on above: Performed By: #### M G #### Laboratory [address] [place] [address] Dr. Carole Carvalho Urea nitrogen [Mass/Vol] 20.0 mg/dL Critically high 7.0-18 .0 [facility] Comment on above: Performed By: #### M G #### Laboratory [address] [place] [address] Dr. Carole Carvalho Urea nitrogen/Creatinine [Mass ratio] 31.2 mg/mg Normal [facility] Comment on above: Performed By: #### M G #### Laboratory [address] [place] [address] Dr. Carole Carvalho VIT B12 AND FOLATEon 022 Cobalamin (Vitamin B12) [Mass/Vol] 481.0 pg/mL Normal 193.0-986. 0 [facility] Comment on above: Performed By: #### L ACT #### Laboratory [address] [place] [address] Dr. Carole Carvalho FOLATE 7.70 ng/mL Critically low 8.60-58.90 [facility] Comment on above: Performed By: #### L ACT #### Laboratory [address] [place] [address] Dr. Carole Carvalho CBC AUTO DIFFon 07-18-2021 BASO # 0.0 103/ul Normal 0.0-0.1 [facility] Comment on above: Performed By: #### L ACT #### Laboratory [address] [place] [address] Dr. Carole Carvalho Basophils/100 WBC (Bld) 0.2 % Normal 0.2-2.0 [facility] Comment on above: Performed By: #### L ACT #### Laboratory [address] [place] [address] Dr. Carole Carvalho EO # 0.0 103/ul Normal 0.0-0.7 [facility] Comment on above: Performed By: #### L ACT #### Laboratory [address] [place] [address] Dr. Carole Carvalho Eosinophils/100 WBC (Bld) 0.0 % Critically low 0.9-7.0 [facility] Comment on above: Performed By: #### L ACT #### Laboratory [address] [place] [address] Dr. Carole Carvalho Erythrocyte distribution width (RBC) [Ratio] 14.2 % Normal 11.0-15.0 [facility] Comment on above: Performed By: #### L ACT #### Laboratory [address] [place] [address] Dr. Carole Carvalho Hematocrit (Bld) [Volume fraction] 38.1 % Critically low 42.0-54.0 [facility] Comment on above: Performed By: #### L ACT #### Laboratory [address] [place] [address] Dr. Carole Carvalho Hemoglobin (Bld) [Mass/Vol] 11.4 g/dL Critically low 14.0-18.0 [facility] Comment on above: Performed By: #### L ACT #### Laboratory [address] [place] [address] Dr. Carole Carvalho IG # 0.03 10e3/ul Normal 0.00-0.03 [facility] Comment on above: Performed By: #### L ACT #### Laboratory [address] [place] [address] Dr. Carole Carvalho IG % 0.3 % Normal 0.0-0.5 The Comment on above: Performed By: #### L ACT #### Laboratory [address] [place] [address] Dr. Carole Carvalho LYMPH # 1.1 103/ul Critically low 1.2-3.8 [facility] Comment on above: Performed By: #### L ACT #### Laboratory [address] [place] [address] Dr. Carole Carvalho Lymphocytes/100 WBC (Bld) 12.2 % Critically low 20.5-60.0 [facility] Comment on above: Performed By: #### L ACT #### Laboratory [address] [place] [address] Dr. Carole Carvalho MANUAL DIFF REQ NO Normal [facility] Comment on above: Performed By: #### L ACT #### Laboratory [address] [place] [address] Dr. Carole Carvalho MCH (RBC) [Entitic mass] 30.4 pg Normal 25.9-34.0 [facility] Comment on above: Performed By: #### L ACT #### Laboratory [address] [place] [address] Dr. Carole Carvalho MCHC (RBC) [Mass/Vol] 29.9 g/dL Normal 29.9-35.2 [facility] Comment on above: Performed By: #### L ACT #### Laboratory [address] [place] [address] Dr. Carole Carvalho MCV (RBC) [Entitic vol] 101.6 fL Critically high 80.0-94 .0 [facility] Comment on above: Performed By: #### L ACT #### Laboratory [address] [place] [address] Dr. Carole Carvalho MONO # 1.1 103/ul Critically high 0.3-0.8 [facility] Comment on above: Performed By: #### L ACT #### Laboratory [address] [place] [address] Dr. Carole Carvalho Monocytes/100 WBC (Bld) 12.7 % Critically high 1.7-12. 0 [facility] Comment on above: Performed By: #### L ACT #### Laboratory [address] [place] [address] Dr. Carole Carvalho NEUT # 6.6 103/ul Critically high 1.4-6.5 [facility] Comment on above: Performed By: #### L ACT #### Laboratory [address] [place] [address] Dr. Carole Carvalho Neutrophils/100 WBC (Bld) 74.6 % Normal 43.0-75.0 [facility] Comment on above: Performed By: #### L ACT #### Laboratory [address] [address] [address] Carole Carvalho Platelet mean volume (Bld) [Entitic vol] 11.1 fL Normal 9.5-13.5 [facility] Comment on above: Performed By: #### L ACT #### Laboratory [address] [address] [address] Carole Carvalho PLT 175 103/ul Normal 150-450 [facility] Comment on above: Performed By: #### L ACT #### Laboratory [address] [address] [address] Carole Carvalho RBC 3.75 106/ul Critically low 4.70-6.10 [facility] [facility] Comment on above: Performed By: #### L ACT #### Laboratory [address] [place] [address] Dr. Carole Carvalho WBC 8.9 103/ul Normal 4.0-11.0 [facility] Comment on above: Performed By: #### L ACT #### Laboratory [address] [place] [address] Dr. Carole Carvalho LIPID PROFILEon 07-18-2021 CHOL-HDL RATIO NORM SEE BELOW Normal [facility] Comment on above: Result Comment: 3.3 - 4.4 LOW RISK 4.4 - 7.1 AVERAGE RISK 7.1 - 11.0 MODERATE RISK >11.0 HIGH RISK Performed By: #### M G, BMP #### Laboratory [address] [place] [address] Dr. Carole Carvalho Cholesterol [Mass/Vol] 111 mg/dL Normal <=200 Th [facility] Comment on above: Performed By: #### M G, BMP #### Laboratory [address] [place] [address] Dr. Carole Carvalho Cholesterol in HDL [Mass/Vol] 37 mg/dL Critically low 40-60 [facility] Comment on above: Performed By: #### M G, BMP #### Laboratory [address] [place] [address] Dr. Carole Carvalho Cholesterol in LDL [Mass/Vol] 63.0 mg/dL Normal [facility] Comment on above: Performed By: #### M Rico, BMP #### Laboratory [address] [address] [address] Carole Carvalho Cholesterol.total/Choles terol in HDL [Mass ratio] 3.0 {ratio} Normal [facility] Comment on above: Performed By: #### M G, BMP #### Laboratory [address] [address] [address] Carole Carvalho HDL NORMAL > or = 60 mg/dl - LO W CARDIOVASCULAR RISK <40 mg/dl - HIGH CARDIOVASCULAR RISK Normal [facility] Comment on above: Performed By: #### Holly Gómez, BMP #### Laboratory [address] [place] [address] Dr. Carole Carvalho LDL CALC NORMAL SEE BELOW Normal [facility] Comment on above: Result Comment: <100 mg/dl OPTIMAL 100 - 129 mg/dl NEAR OR ABOVE OPTIMAL 130 - 159 mg/dl BORDERLINE HIGH 160 - 189 mg/dl HIGH >190 mg/dl VERY HIGH Performed By: #### Holly Gómez, BMP #### Laboratory [address] [address] [address] Carole Carvalho Triglyceride [Mass/Vol] 55 mg/dL Normal <=150 T [facility] Comment on above: Performed By: #### Holly Gómez, BMP #### Laboratory [address] [address] [address] Carole Carvalho VLDL CALC 11.0 mg/dL Normal [facility] Comment on above: Performed By: #### Holly G, BMP #### Laboratory [address] [place] [address] Dr. Carole Carvalho MAGNESIUMon 07-18-2021 Magnesium [Mass/Vol] 2.1 mg/dL Normal 1.8-2.4 [facility] Comment on above: Performed By: #### M G, BMP #### Laboratory [address] [place] [address] Dr. Carole Carvalho PROF CHEM 8 (BAS METB)on Anion gap [Moles/Vol] 2.6 mmol/L Normal [facility] Comment on above: Performed By: #### M G, BMP #### Laboratory [address] [place] [address] Dr. Carole Carvalho Calcium [Mass/Vol] 7.8 mg/dL Critically low 8.5-10.1 Th e Comment on above: Performed By: #### M G, BMP #### Laboratory [address] [place] [address] Dr. Carole Carvalho Chloride [Moles/Vol] 93 mmol/L Critically low 98-107 [facility] Comment on above: Performed By: #### M G, BMP #### Laboratory [address] [place] [address] Dr. Carole Carvalho CO2 [Moles/Vol] 46.0 mmol/L Critically high 21.0-32.0 [facility] Comment on above: Performed By: #### Holly G, BMP #### Laboratory [address] [place] [address] Dr. Carole Carvalho Creatinine [Mass/Vol] 0.65 mg/dL Critically low 0.70-1.30 [facility] Comment on above: Performed By: #### M G, BMP #### Laboratory [address] [place] [address] Dr. Carole Carvalho EGFR-AF [place] >60 Normal >=60 [facility] Comment on above: Performed By: #### Holly G, BMP #### Laboratory [address] [place] [address] Dr. Carole Carvaloh EGFR-NON AF [place] >60 Normal >=60 [facility] Comment on above: Performed By: #### M G, BMP #### Laboratory [address] [place] [address] Dr. Carole Carvalho Glucose [Mass/Vol] 92 mg/dL Normal 74-106 [facility] Comment on above: Performed By: #### M G, BMP #### Laboratory [address] [place] [address] Dr. Carole Carvalho Potassium [Moles/Vol] 3.6 mmol/L Normal 3.5-5.1 [facility] Comment on above: Performed By: #### M G, BMP #### Laboratory [address] [address] [address] Carole Carvalho Sodium [Moles/Vol] 138 mmol/L Normal 136-145 The Comment on above: Performed By: #### M G, BMP #### Laboratory [address] [address] [address] Carole Carvalho Urea nitrogen [Mass/Vol] 21.0 mg/dL Critically high 7.0-18 .0 [facility] Comment on above: Performed By: #### M G, BMP #### Laboratory [address] [place] [address] Dr. Carole Carvalho Urea nitrogen/Creatinine [Mass ratio] 32.3 mg/mg Normal [facility] Comment on above: Performed By: #### M G, BMP #### Laboratory [address] [place] [address] Dr. Carole Carvalho BLOOD GASES BTYon 07-17-2021 02 MODE BIPAP Normal [facility] Comment on above: Performed By: #### M G, BMP #### Laboratory [address] [place] [address] Dr. Carole MATA TEST Positive Normal [facility] Comment on above: Performed By: #### M G, BMP #### Laboratory [address] [place] [address] Dr. Caroel Carvalho Base excess Calc (Bld) [Moles/Vol] 22.4 mmol/L Critically high -2.0-2.0 [facility] Comment on above: Performed By: #### M G, BMP #### Laboratory [address] [place] [address] Dr. Carole Carvalho BIPAP PRESSURE 18/8 Normal [facility] Comment on above: Performed By: #### M G, BMP #### Laboratory [address] [place] [address] Dr. Carole Carvalho CO2 [Moles/Vol] 95.2 mmol/L Critically high 23.0-28.0 [facility] Comment on above: Performed By: #### M G, BMP #### Laboratory [address] [place] [address] Dr. Carole Carvalho CPAP Normal [facility] Comment on above: Performed By: #### M G, BMP #### Laboratory [address] [place] [address] Dr. Carole Carvalho FIO2 40.00 % Normal [facility] Comment on above: Performed By: #### M G, BMP #### Laboratory [address] [place] [address] Dr. Carole Carvalho HCO3 (Bld) [Moles/Vol] 42.7 mmol/L Critically high 22.0-26 .0 The Comment on above: Performed By: #### M G, BMP #### Laboratory [address] [place] [address] Dr. Carole Carvalho LPM Normal [facility] Comment on above: Performed By: #### M G, BMP #### Laboratory [address] [place] [address] Dr. Carole Carvalho MINUTE VOLUME Normal [facility] Comment on above: Performed By: #### M G, BMP #### Laboratory [address] [place] [address] Dr. Carole Carvalho Oxygen (Bld) [Partial pressure] 106.0 mm[Hg] Critically high 80.0-100.0 The Comment on above: Performed By: #### M G, BMP #### Laboratory [address] [place] [address] Dr. Carole Carvalho Oxygen saturation in Blood 98.9 % Normal 95.0-100.0 The Comment on above: Performed By: #### M G, BMP #### Laboratory [address] [place] [address] Dr. Carole Carvalho PCO2 74.9 mmHg Critically high 35.0-45.0 [facility] Comment on above: Performed By: #### M G, BMP #### Laboratory [address] [place] [address] Dr. Carole Carvalho PEEP [facility] Comment on above: Performed By: #### M G, BMP #### Laboratory [address] [address] [address] Carole Carvalho pH (Bld) 7.406 [pH] Normal 7.350-7.45 0 [facility] Comment on above: Performed By: #### M G, BMP #### Laboratory [address] [address] [address] Carole Carvalho PIP [facility] Comment on above: Performed By: #### M G, BMP #### Laboratory [address] [address] [address] Carole Carvalho PS [facility] Comment on above: Performed By: #### M G, BMP #### Laboratory [address] [place] [address] Dr. Carole Carvalho PUNCTURE SITE RR [facility] Comment on above: Performed By: #### M G, BMP #### Laboratory [address] [place] [address] Dr. Carole Carvalho RATE [facility] Comment on above: Performed By: #### M G, BMP #### Laboratory [address] [place] [address] Dr. Carole Carvalho VENT MODE [facility] Comment on above: Performed By: #### M G, BMP #### Laboratory [address] [place] [address] Dr. Carole Carvalho VT [facility] Comment on above: Performed By: #### M G, BMP #### Laboratory [address] [place] [address] Dr. Carole Carvalho 02 MODE BIPAP [facility] Comment on above: Performed By: #### M G, BMP #### Laboratory [address] [place] [address] Dr. Carole Carvalho ALLENS TEST Positive [facility] Comment on above: Performed By: #### M G, BMP #### Laboratory [address] [place] [address] Dr. Carole Carvalho Base excess Calc (Bld) [Moles/Vol] 18.2 mmol/L Critically high -2.0-2.0 [facility] Comment on above: Performed By: #### M G, BMP #### Laboratory [address] [place] [address] Dr. Carole Carvalho BIPAP PRESSURE Normal [facility] Comment on above: Performed By: #### M G, BMP #### Laboratory [address] [place] [address] Dr. Carole Carvalho CO2 [Moles/Vol] 91.2 mmol/L Critically high 23.0-28.0 [facility] Comment on above: Performed By: #### M G, BMP #### Laboratory [address] [place] [address] Dr. Carole Carvalho CPAP [facility] Comment on above: Performed By: #### M G, BMP #### Laboratory [address] [place] [address] Dr. Carole Carvalho FIO2 30.00 % Normal [facility] Comment on above: Performed By: #### M G, BMP #### Laboratory [address] [place] [address] Dr. Carole Carvalho HCO3 (Bld) [Moles/Vol] 38.2 mmol/L Critically high 22.0-26 .0 [facility] Comment on above: Performed By: #### M G, BMP #### Laboratory [address] [place] [address] Dr. Carole Carvalho LPM Normal [facility] Comment on above: Performed By: #### M G, BMP #### Laboratory [address] [place] [address] Dr. Carole Carvalho MINUTE VOLUME Normal [facility] Comment on above: Performed By: #### M G, BMP #### Laboratory [address] [place] [address] Dr. Carole Carvalho Oxygen (Bld) [Partial pressure] 58.3 mm[Hg] Critically low 80.0-100.0 [facility] Comment on above: Performed By: #### M G, BMP #### Laboratory [address] [place] [address] Dr. Carole Carvalho Oxygen saturation in Blood 89.7 % Critically low 95.0-100.0 [facility] Comment on above: Performed By: #### M G, BMP #### Laboratory [address] [place] [address] Dr. Carole Carvalho PCO2 84.0 mmHg Critically high 35.0-45.0 [facility] Comment on above: Performed By: #### M G, BMP #### Laboratory [address] [place] [address] Dr. Carole Carvalho [facility] Comment on above: Performed By: #### M G, BMP #### Laboratory [address] [place] [address] Dr. Carole Carvalho pH (Bld) 7.329 [pH] Critically low 7.350-7.45 0 [facility] Comment on above: Performed By: #### M G, BMP #### Laboratory [address] [place] [address] Dr. Carole Carvalho [facility] Comment on above: Performed By: #### M G, BMP #### Laboratory [address] [place] [address] Dr. Carole Carvalho [facility] Comment on above: Performed By: #### M G, BMP #### Laboratory [address] [place] [address] Dr. Carole Carvalho PUNCTURE SITE LR [facility] Comment on above: Performed By: #### M G, BMP #### Laboratory [address] [place] [address] Dr. Carole Carvalho RATE [facility] Comment on above: Performed By: #### M G, BMP #### Laboratory [address] [place] [address] Dr. Carole Carvalho VENT MODE [facility] Comment on above: Performed By: #### M G, BMP #### Laboratory [address] [place] [address] Dr. Carole Carvalho [facility] Comment on above: Performed By: #### M G, BMP #### Laboratory [address] [address] [address] Carole Carvalho 02 MODE VENTURI MASK Normal [facility] Comment on above: Performed By: #### M G, BMP #### Laboratory [address] [address] [address] Carole Carvalho ALLENS TEST Positive [facility] Comment on above: Performed By: #### M G, BMP #### Laboratory [address] [place] [address] Dr. Carole Carvalho Base excess Calc (Bld) [Moles/Vol] 16.9 mmol/L Critically high -2.0-2.0 [facility] Comment on above: Performed By: #### M G, BMP #### Laboratory [address] [place] [address] Dr. Carole Carvalho BIPAP PRESSURE [facility] Comment on above: Performed By: #### M G, BMP #### Laboratory [address] [place] [address] Dr. Carole Carvalho CO2 [Moles/Vol] 89.8 mmol/L Critically high 23.0-28.0 [facility] Comment on above: Performed By: #### M G, BMP #### Laboratory [address] [place] [address] Dr. Carole Carvalho CPAP Normal [facility] Comment on above: Performed By: #### M G, BMP #### Laboratory [address] [place] [address] Dr. Carole Carvalho FIO2 45.00 % Normal The Comment on above: Performed By: #### M G, BMP #### Laboratory [address] [place] [address] Dr. Carole Carvalho HCO3 (Bld) [Moles/Vol] 36.9 mmol/L Critically high 22.0-26 .0 [facility] Comment on above: Performed By: #### M G, BMP #### Laboratory [address] [place] [address] Dr. Carole Carvalho LPM 12 [facility] Comment on above: Performed By: #### M G, BMP #### Laboratory [address] [address] [address] Carole Carvalho MINUTE VOLUME Normal [facility] Comment on above: Performed By: #### M G, BMP #### Laboratory [address] [place] [address] Dr. Carole Carvalho Oxygen (Bld) [Partial pressure] 81.4 mm[Hg] Normal 80.0-100.0 [facility] Comment on above: Performed By: #### M G, BMP #### Laboratory [address] [place] [address] Dr. Carole Carvalho Oxygen saturation in Blood 95.8 % Normal 95.0-100.0 [facility] Comment on above: Performed By: #### M G, BMP #### Laboratory [address] [place] [address] Dr. Carole Carvalho PCO2 88.1 mmHg Critically high 35.0-45.0 [facility] Comment on above: Performed By: #### M G, BMP #### Laboratory [address] [place] [address] Dr. Carole Carvalho [facility] Comment on above: Performed By: #### M G, BMP #### Laboratory [address] [place] [address] Dr. Carole Carvalho pH (Bld) 7.300 [pH] Critically low 7.350-7.45 0 [facility] Comment on above: Performed By: #### M G, BMP #### Laboratory [address] [place] [address] Dr. Carole Carvalho PIP [facility] Comment on above: Performed By: #### M G, BMP #### Laboratory [address] [place] [address] Dr. Carole Carvalho [facility] Comment on above: Performed By: #### M G, BMP #### Laboratory [address] [place] [address] Dr. Carole Carvalho PUNCTURE SITE LR [facility] Comment on above: Performed By: #### M G, BMP #### Laboratory [address] [place] [address] Dr. Carole Carvalho [facility] Comment on above: Performed By: #### M G, BMP #### Laboratory [address] [place] [address] Dr. Carole Carvalho [facility] Comment on above: Performed By: #### M G, BMP #### Laboratory [address] [place] [address] Dr. Carole Carvalho [facility] Comment on above: Performed By: #### M G, BMP #### Laboratory [address] [place] [address] Dr. Carole Carvalho BNPon 07-17-2021 Natriuretic peptide B (Bld) [Mass/Vol] 2579.0 pg/mL Critically high <=900.0 [facility] Comment on above: Result Comment: repe ated Performed By: #### B CRAFT SUPERINTENDENT #### Laboratory [address] [place] [address] Dr. Carole Carvalho CBC AUTO DIFFon 07-17-2021 BASO # 0.0 103/ul Normal 0.0-0.1 [facility] Comment on above: Performed By: #### L ACT #### Laboratory [address] [place] [address] Dr. Carole Carvalho Basophils/100 WBC (Bld) 0.3 % Normal 0.2-2.0 [facility] Comment on above: Performed By: #### L ACT #### Laboratory [address] [place] [address] Dr. Carole Carvalho EO # 0.0 103/ul Normal 0.0-0.7 [facility] Comment on above: Performed By: #### L ACT #### Laboratory [address] [place] [address] Dr. Carole Carvalho Eosinophils/100 WBC (Bld) 0.1 % Critically low 0.9-7.0 [facility] Comment on above: Performed By: #### L ACT #### Laboratory [address] [place] [address] Dr. Carole Carvalho Erythrocyte distribution width (RBC) [Ratio] 14.2 % Normal 11.0-15.0 [facility] Comment on above: Performed By: #### L ACT #### Laboratory [address] [place] [address] Dr. Carole Carvalho Hematocrit (Bld) [Volume fraction] 38.0 % Critically low 42.0-54.0 [facility] Comment on above: Performed By: #### L ACT #### Laboratory [address] [place] [address] Dr. Carole Carvalho Hemoglobin (Bld) [Mass/Vol] 11.4 g/dL Critically low 14.0-18.0 [facility] Comment on above: Performed By: #### L ACT #### Laboratory [address] [place] [address] Dr. Carole Carvalho IG # 0.04 10e3/ul Critically high 0.00-0.03 [facility] Comment on above: Performed By: #### L ACT #### Laboratory [address] [place] [address] Dr. Carole Carvalho IG % 0.4 % Normal 0.0-0.5 [facility] Comment on above: Performed By: #### L ACT #### Laboratory [address] [place] [address] Dr. Carole Carvalho LYMPH # 1.4 103/ul Normal 1.2-3.8 The Comment on above: Performed By: #### L ACT #### Laboratory [address] [place] [address] Dr. Carole Carvalho Lymphocytes/100 WBC (Bld) 14.5 % Critically low 20.5-60.0 [facility] Comment on above: Performed By: #### L ACT #### Laboratory [address] [place] [address] Dr. Carole Carvalho MANUAL DIFF REQ NO Normal [facility] Comment on above: Performed By: #### L ACT #### Laboratory [address] [place] [address] Dr. Carole Carvalho MCH (RBC) [Entitic mass] 31.1 pg Normal 25.9-34.0 The Comment on above: Performed By: #### L ACT #### Laboratory [address] [address] [address] Carole Carvalho MCHC (RBC) [Mass/Vol] 30.0 g/dL Normal 29.9-35.2 The Comment on above: Performed By: #### L ACT #### Laboratory [address] [place] [address] Dr. Carole Carvalho MCV (RBC) [Entitic vol] 103.5 fL Critically high 80.0-94 .0 The Comment on above: Performed By: #### L ACT #### Laboratory [address] [place] [address] Dr. Carole Carvalho MONO # 1.3 103/ul Critically high 0.3-0.8 The Comment on above: Performed By: #### L ACT #### Laboratory [address] [place] [address] Dr. Carole Carvalho Monocytes/100 WBC (Bld) 13.4 % Critically high 1.7-12. 0 The Comment on above: Performed By: #### L ACT #### Laboratory [address] [place] [address] Dr. Carole Carvalho NEUT # 7.0 103/ul Critically high 1.4-6.5 The Comment on above: Performed By: #### L ACT #### Laboratory [address] [place] [address] Dr. Carole Carvalho Neutrophils/100 WBC (Bld) 71.3 % Normal 43.0-75.0 The Comment on above: Performed By: #### L ACT #### Laboratory [address] [place] [address] Dr. Carole Carvalho Platelet mean volume (Bld) [Entitic vol] 11.3 fL Normal 9.5-13.5 The Comment on above: Performed By: #### L ACT #### Laboratory [address] [place], [place] [address] Dr. Carole Carvalho PLT 169 103/ul Normal 150-450 The Comment on above: Performed By: #### L ACT #### Laboratory [id number] Carole Carvalho RBC 3.67 106/ul Critically low 4.70-6.10 [facility] Comment on above: Performed By: #### L ACT #### Laboratory [id number] Carole Carvalho WBC 9.9 103/ul Normal 4.0-11.0 [facility] Comment on above: Performed By: #### L ACT #### Laboratory [id number] Carole Carvalho CTA CHEST WO W CONon 07-17- 022 CTA CHEST WO W CON EXAMINATION: [...] by: KATE BUSH Date: 2021-07-17 08:34 Normal [facility] ECHOCARDIO M/2D COMPLETEon 0 07-17-2021 ECHOCARDIO M/2D COMPLETE Patient: JAIME BLACK Exam Date: 07/17/2021 : 1955 Gender:M Ordering : SHAIKH Nelia ALLEN . Admission #: [id number] Family : Order #: [id number] CLICK HERE TO VIEW EXAM ECHOCARDIOGRAM REPORT [...] Sheridan M.D. on 07/17/2021 at 13:29 Normal [facility] MAGNESIUMon 07-17-2021 Magnesium [Mass/Vol] 2.3 mg/dL Normal 1.8-2.4 [facility] Comment on above: Performed By: #### Holly Gómez, BMP #### Laboratory [address] [place] [address] Dr. Carole Carvalho PROF CHEM 8 (BAS METB)on Anion gap [Moles/Vol] 3.5 mmol/L Normal [facility] Comment on above: Performed By: #### Holly Gómez, BMP #### Laboratory [address] [address] [address] Carole Carvalho Calcium [Mass/Vol] 7.7 mg/dL Critically low 8.5-10.1 Th e Comment on above: Performed By: #### Holly Gómez, BMP #### Laboratory [address] [address] [address] Carole Carvalho Chloride [Moles/Vol] 96 mmol/L Critically low 98-107 [facility] Comment on above: Performed By: #### Holly Gómez, BMP #### Laboratory [address] [address] [address] Carole Carvalho CO2 [Moles/Vol] 43.4 mmol/L Critically high 21.0-32.0 [facility] Comment on above: Performed By: #### M G, BMP #### Laboratory [address] [place] [address] Dr. Carole Carvalho Creatinine [Mass/Vol] 0.76 mg/dL Normal 0.70-1.30 [facility] Comment on above: Performed By: #### M G, BMP #### Laboratory [address] [place] [address] Dr. Carole Carvalho EGFR-AF [place] >60 Normal >=60 [facility] Comment on above: Performed By: #### M G, BMP #### Laboratory [address] [place] [address] Dr. Carole Carvalho EGFR-NON AF [place] >60 Normal >=60 [facility] Comment on above: Performed By: #### M G, BMP #### Laboratory [address] [place] [address] Dr. Carole Carvalho Glucose [Mass/Vol] 85 mg/dL Normal 74-106 [facility] Comment on above: Performed By: #### M G, BMP #### Laboratory [address] [place] [address] Dr. Carole Carvalho Potassium [Moles/Vol] 4.9 mmol/L Normal 3.5-5.1 [facility] Comment on above: Performed By: #### M G, BMP #### Laboratory [address] [place] [address] Dr. Carole Carvalho Sodium [Moles/Vol] 138 mmol/L Normal 136-145 The Comment on above: Performed By: #### M G, BMP #### Laboratory [address] [place] [address] Dr. Carole Carvalho Urea nitrogen [Mass/Vol] 27.0 mg/dL Critically high 7.0-18 .0 [facility] Comment on above: Performed By: #### M G, BMP #### Laboratory [address] [place] [address] Dr. Carole Carvalho Urea nitrogen/Creatinine [Mass ratio] 35.5 mg/mg Normal The Comment on above: Performed By: #### M G, BMP #### Laboratory [address] [place] [address] Dr. Carole Carvalho TROPONIN, HIGH SENSITIVITYon 07-17-2021 HSTROP 23.9 pg/mL Normal 4.0-76.1 [facility] Comment on above: Result Comment: CUT- OFF POINTS HAVE BEEN ESTABLISHED BASED ON THE FOURTH UNIVERSAL DEFINITIONS OF MYOCARDIAL INFARCTION. THE UPPER REFERENCE LIMIT (URL) OF TROPONIN, DEFINED THE 99TH PERCENTILE OF cTnI DISTRIBUTION IN A REFERENCE POPULATION, HAS BEEN CONFIRMED THE DECISION THRESHOLD FOR [place] DIAGNOSIS. Performed By: #### M Rico, BMP #### Laboratory [address] [place] [address] Dr. Carole Carvalho BNPon 07-16-2021 Natriuretic peptide B (Bld) [Mass/Vol] 6272.0 pg/mL Critically high <=900.0 [facility] Comment on above: Result Comment: test repeated critical value verified Performed By: #### B CRAFT SUPERINTENDENT #### Laboratory [address] [place] [address] Dr. Carole Carvalho CBC AUTO DIFFon 07-16-2021 BASO # 0.0 103/ul Normal 0.0-0.1 [facility] Comment on above: Performed By: #### C BC #### Laboratory [address] [place] [address] Dr. Carole Carvalho Basophils/100 WBC (Bld) 0.2 % Normal 0.2-2.0 [facility] Comment on above: Performed By: #### C BC #### Laboratory [address] [place] [address] Dr. Carole Carvalho EO # 0.0 103/ul Normal 0.0-0.7 [facility] Comment on above: Performed By: #### C BC #### Laboratory [address] [place] [address] Dr. Carole Carvalho Eosinophils/100 WBC (Bld) 0.0 % Critically low 0.9-7.0 [facility] Comment on above: Performed By: #### C BC #### Laboratory [address] [place] [address] Dr. Carole Carvalho Erythrocyte distribution width (RBC) [Ratio] 14.2 % Normal 11.0-15.0 [facility] Comment on above: Performed By: #### C BC #### Laboratory [address] [place] [address] Dr. Carole Carvalho Hematocrit (Bld) [Volume fraction] 43.5 % Normal 42.0-54.0 [facility] Comment on above: Performed By: #### C BC #### Laboratory [address] [place] [address] Dr. Carole Carvalho Hemoglobin (Bld) [Mass/Vol] 13.5 g/dL Critically low 14.0-18.0 [facility] Comment on above: Performed By: #### C BC #### Laboratory [address] [place] [address] Dr. Carole Carvalho IG # 0.04 10e3/ul Critically high 0.00-0.03 [facility] Comment on above: Performed By: #### C BC #### Laboratory [address] [place] [address] Dr. Carole Carvlaho IG % 0.4 % Normal 0.0-0.5 [facility] Comment on above: Performed By: #### C BC #### Laboratory [address] [place] [address] Dr. Carole Carvalho LYMPH # 1.1 103/ul Critically low 1.2-3.8 [facility] Comment on above: Performed By: #### C BC #### Laboratory [address] [place] [address] Dr. Carole Carvalho Lymphocytes/100 WBC (Bld) 11.0 % Critically low 20.5-60.0 [facility] Comment on above: Performed By: #### C BC #### Laboratory [address] [place] [address] Dr. Carole Carvalho MANUAL DIFF REQ NO Normal [facility] Comment on above: Performed By: #### C BC #### Laboratory [address] [place] [address] Dr. Carole Carvalho MCH (RBC) [Entitic mass] 31.5 pg Normal 25.9-34.0 [facility] Comment on above: Performed By: #### C BC #### Laboratory [address] [place] [address] Dr. Carole Carvalho MCHC (RBC) [Mass/Vol] 31.0 g/dL Normal 29.9-35.2 [facility] Comment on above: Performed By: #### C BC #### Laboratory [address] [place] [address] Dr. Carole Carvalho MCV (RBC) [Entitic vol] 101.4 fL Critically high 80.0-94 .0 [facility] Comment on above: Performed By: #### C BC #### Laboratory [address] [place] [address] Dr. Carole Carvalho MONO # 1.2 103/ul Critically high 0.3-0.8 [facility] Comment on above: Performed By: #### C BC #### Laboratory [address] [place] [address] Dr. Carole Carvalho Monocytes/100 WBC (Bld) 11.6 % Normal 1.7-12.0 [facility] Comment on above: Performed By: #### C BC #### Laboratory [address] [place] [address] Dr. Carole Carvalho NEUT # 8.0 103/ul Critically high 1.4-6.5 [facility] Comment on above: Performed By: #### C BC #### Laboratory [address] [place] [address] Dr. Carole Carvalho Neutrophils/100 WBC (Bld) 76.8 % Critically high 43.0-75.0 [facility] Comment on above: Performed By: #### C BC #### Laboratory [address] [place] [address] Dr. Carole Carvalho Platelet mean volume (Bld) [Entitic vol] 11.5 fL Normal 9.5-13.5 [facility] Comment on above: Performed By: #### C BC #### Laboratory [address] [place] [address] Dr. Carole Carvalho PLT 221 103/ul Normal 150-450 The Comment on above: Performed By: #### C BC #### Laboratory [address] [place] [address] Dr. Carole Carvalho RBC 4.29 106/ul Critically low 4.70-6.10 [facility] Comment on above: Performed By: #### C BC #### Laboratory [address] [place] [address] Dr. Carole Carvalho WBC 10.4 103/ul Normal 4.0-11.0 [facility] Comment on above: Performed By: #### C BC #### Laboratory [address] [place] [address] Dr. Carole Carvalho Covid-19 PCR ([facility])on 06-28 SARS-CoV-2 (COVID-19) RNA [place]+probe Ql (Unsp spec) Not detected Normal NOT DETECTED The Comment on above: Result Comment: When diagnostic testing is negative, the possibility of a false negative should be considered in the context of a patient's recent exposures and the presence of clinical signs and symptoms consistent with SARS-CoV-2. This test is not yet approved or cleared by the [place] Food and Drug Administration (FDA). This test was developed by [employer], [place], [place]. The performance characteristics of this test were validated by The Laboratory. The results are not intended to be used as the sole means for clinical diagnosis or patient management decisions. The is authorized under Clinical Laboratory Improvement Amendments [...] for this test is supported by the Lead Scientist of Health and Human Service's declaration that [...] used). Performed By: #### C VDTBH #### Laboratory [address] [place] [address] Dr. Carole Carvalho MAGNESIUMon 07-16-2021 Magnesium [Mass/Vol] 2.4 mg/dL Normal 1.8-2.4 [facility] Comment on above: Performed By: #### M G #### Laboratory [address] [place] [address] Dr. Carole Carvalho Magnesium [Mass/Vol] 2.4 mg/dL Normal 1.8-2.4 [facility] Comment on above: Performed By: #### B CRAFT SUPERINTENDENT #### Laboratory [address] [place] [address] Dr. Carole Carvalho PROF 14(COMP METB)on 022 Albumin [Mass/Vol] 3.0 g/dL Critically low 3.4-5.0 [facility] Comment on above: Performed By: #### B CRAFT SUPERINTENDENT #### Laboratory [address] [place] [address] Dr. Carole Carvalho Albumin/Globulin [Mass ratio] 0.8 {ratio} Normal [facility] Comment on above: Performed By: #### B CRAFT SUPERINTENDENT #### Laboratory [address] [place] [address] Dr. Carole Carvalho ALP [Catalytic activity/Vol] 141 U/L Critically high 46-116 [facility] Comment on above: Performed By: #### B CRAFT SUPERINTENDENT #### Laboratory [address] [place] [address] Dr. Carole Carvalho ALT [Catalytic activity/Vol] 54 U/L Normal 16-63 [facility] Comment on above: Performed By: #### B CRAFT SUPERINTENDENT #### Laboratory [address] [place] [address] Dr. Carole Carvalho Anion gap [Moles/Vol] 4.7 mmol/L Normal [facility] Comment on above: Performed By: #### B CRAFT SUPERINTENDENT #### Laboratory [address] [place] [address] Dr. Carole Carvalho AST [Catalytic activity/Vol] 29 U/L Normal 15-37 [facility] Comment on above: Performed By: #### B CRAFT SUPERINTENDENT #### Laboratory [address] [place] [address] Dr. Carole Carvalho Bilirubin [Mass/Vol] 0.7 mg/dL Normal 0.2-1.0 [facility] Comment on above: Performed By: #### B CRAFT SUPERINTENDENT #### Laboratory [address] [place] [address] Dr. Carole Carvalho Calcium [Mass/Vol] 7.9 mg/dL Critically low 8.5-10.1 [facility] Comment on above: Performed By: #### B CRAFT SUPERINTENDENT #### Laboratory [address] [place] [address] Dr. Carole Carvalho Chloride [Moles/Vol] 96 mmol/L Critically low 98-107 [facility] Comment on above: Performed By: #### B CRAFT SUPERINTENDENT #### Laboratory [address] [place] [address] Dr. Carole Carvalho CO2 [Moles/Vol] 37.4 mmol/L Critically high 21.0-32.0 [facility] Comment on above: Performed By: #### B CRAFT SUPERINTENDENT #### Laboratory [address] [place] [address] Dr. Carole Carvalho Creatinine [Mass/Vol] 0.81 mg/dL Normal 0.70-1.30 [facility] Comment on above: Performed By: #### B CRAFT SUPERINTENDENT #### Laboratory [address] [place] [address] Dr. Carole Carvalho EGFR-AF [place] >60 Normal >=60 [facility] Comment on above: Performed By: #### B CRAFT SUPERINTENDENT #### Laboratory [address] [place] [address] Dr. Carole Carvalho EGFR-NON AF [place] >60 Normal >=60 [facility] Comment on above: Performed By: #### B CRAFT SUPERINTENDENT #### Laboratory [address] [place] [address] Dr. Carole Carvalho Globulin (S) [Mass/Vol] 3.8 g/dL Normal T [facility] Comment on above: Performed By: #### B CRAFT SUPERINTENDENT #### Laboratory [address] [address] [address] Carole Carvalho Glucose [Mass/Vol] 132 mg/dL Critically high 74-106 [facility] Comment on above: Performed By: #### B CRAFT SUPERINTENDENT #### Laboratory [address] [address] [address] Carole Carvalho Potassium [Moles/Vol] 5.1 mmol/L Normal 3.5-5.1 [facility] Comment on above: Performed By: #### B CRAFT SUPERINTENDENT #### Laboratory [address] [address] [address] Carole Carvalho Protein [Mass/Vol] 6.8 g/dL Normal 6.4-8.2 [facility] Comment on above: Performed By: #### B CRAFT SUPERINTENDENT #### Laboratory [address] [address] [address] Carole Carvalho Sodium [Moles/Vol] 133 mmol/L Critically low 136-145 [facility] Comment on above: Performed By: #### B CRAFT SUPERINTENDENT #### Laboratory [address] [address] [address] Carole Carvalho Urea nitrogen [Mass/Vol] 36.0 mg/dL Critically high 7.0-18 .0 [facility] Comment on above: Performed By: #### B CRAFT SUPERINTENDENT #### Laboratory [address] [address] [address] Carole Carvalho Urea nitrogen/Creatinine [Mass ratio] 44.4 mg/mg Normal [facility] Comment on above: Performed By: #### B CRAFT SUPERINTENDENT #### Laboratory [address] [address] [address] Carole Carvalho TROPONIN, HIGH SENSITIVITYon 07-16-2021 HSTROP 25.3 pg/mL Normal 4.0-76.1 [facility] Comment on above: Result Comment: CUT- OFF POINTS HAVE BEEN ESTABLISHED BASED ON THE FOURTH UNIVERSAL DEFINITIONS OF MYOCARDIAL INFARCTION. THE UPPER REFERENCE LIMIT (URL) OF TROPONIN, DEFINED THE 99TH PERCENTILE OF cTnI DISTRIBUTION IN A REFERENCE POPULATION, HAS BEEN CONFIRMED THE DECISION THRESHOLD FOR [place] DIAGNOSIS. Performed By: #### B CRAFT SUPERINTENDENT #### Laboratory [address] [address] [address] Carole Carvalho TSHon 07-16-2021 TSH 2.343 uIU/mL Normal 0.358-3.74 0 The Comment on above: Performed By: #### L ACT #### Laboratory [address] [address] [address] Carole Carvalho TSH RANGE SEE BELOW Normal [facility] Comment on above: Result Comment: <0.3 4 UIU/ml HYPERTHYROID 0.34-5.60 UIU/ml EUTHYROID >5.60 UIU/ml HYPOTHYROID Performed By: #### L ACT #### Laboratory [address] [address] [address] Carole Carvalho XR CHEST 1 Von [...] by: KATE BUSH Date: 2021-07-16 13:55 Normal [facility] Vital Signs Date Time Vital Sign Value Performing Clinician Facility 05-04-2023 15:05-050 Body height 172.7 cm Jaziel Gomez MD Work Phone: [facility] 05-04-2023 15:05-0500 Body mass index (BMI) [Ratio] 25.85 kg/m2 Jaziel Gomez MD Work Phone: [facility] 05-04-2023 15:05-0500 Body weight 77.11 kg Jaziel Gomez MD Work Phone: [facility] 05-04-2023 15:05-0500 Diastolic blood pressure 76 mm[Hg] Jaziel Gomez MD Work Phone: [facility] 05-04-2023 15:05-0500 Heart rate 105 /min Jaziel Gomez MD Work Phone: [facility] 05-04-2023 15:05-0500 Systolic blood pressure 138 mm[Hg] Jaziel Gomez MD Work Phone: [facility] 11-10-2022 12:43-0400 Body height 172.72 cm No PCP None [facility] 250 DO Work Phone: 11-10-2022 12:43-0400 Body mass index (BMI) [Ratio] 23.11 kg/m2 No PCP None [facility] 250 DO Work Phone: 11-10-2022 12:43-0400 Body surface area Derived from formula 1.82 m2 No PCP None [facility] 250 DO Work Phone: 11-10-2022 12:43-0400 Body weight 68.95 kg No PCP None [facility] 250 DO Work Phone: 11-10-2022 12:43-0400 Diastolic blood pressure 58 mm[Hg] No PCP None [facility] DO Work Phone: 11-10-2022 12:43-0400 Heart rate 77 /min No PCP None [facility] 250 DO Work Phone: 11-10-2022 12:43-0400 Systolic blood pressure 100 mm[Hg] No PCP None [facility] 250 DO Work Phone: 10-25-2022 10:08-0400 Body height 172.72 cm No PCP None [facility] 250 DO Work Phone: 10-25-2022 10:08-0400 Body mass index (BMI) [Ratio] 22.5 kg/m2 No PCP None [facility] DO Work Phone: 10-25-2022 10:08-0400 Body surface area Derived from formula 1.8 m2 No PCP None [facility] 250 DO Work Phone: 10-25-2022 10:08-0400 Body weight 67.13 kg No PCP None [facility] DO Work Phone: 10-25-2022 10:08-0400 Diastolic blood pressure 84 mm[Hg] No PCP None [facility] DO Work Phone: 10-25-2022 10:08-0400 Heart rate 144 /min No PCP None [facility] 250 DO Work Phone: 10-25-2022 10:08-0400 Systolic blood pressure 102 mm[Hg] No PCP None [facility] 250 DO Work Phone: 09-14-2022 14:00-0400 Body weight 64.41 kg Imad Asaad Other [facility] Other 09-14-2022 14:00-0400 Diastolic blood pressure 58 mm[Hg] Imad Asaad Other [facility] Other 09-14-2022 14:00-0400 Systolic blood pressure 106 mm[Hg] Imad Asaad Other [facility] Other 07-11-2022 01:58-0400 Diastolic blood pressure 63 mm[Hg] MD Iris Holliday Work Phone: [facility] 07-11-2022 01:58-0400 Heart rate 62 /min MD Iris Holliday Work Phone: [facility] 07-11-2022 01:58-0400 Systolic blood pressure 142 mm[Hg] MD Iris Holliday Work Phone: [facility] 07-11-2022 01:56-0400 Inhaled oxygen flow rate 6 L/min MD Iris Holliday Work Phone: [facility] 07-11-2022 01:56-0400 Respiratory rate 18 /min MD Iris Holliday Work Phone: [facility] 07-11-2022 01:11-0400 Body height 172.72 cm MD Iris Holliday Work Phone: [facility] 07-11-2022 01:11-0400 Body temperature 98.6 [degF] MD Iris Holliday Work Phone: [facility] 07-11-2022 01:11040 Body weight 69.8 kg MD Iris Holliday Work Phone: [facility] 07-11-2022 00:50-0400 SaO2% (BldA) [Mass fraction] 96 % MD Iris Holliday Work Phone: [facility] Encounters Encounter Date Encounter Type Care Provider Facility Start: 05-04-2023 End: 05-04-2023 ambulatory JAZIEL GOMEZ [facility] Ambulatory Start: 05-04-2023 End: 05-04-2023 Office outpatient visit 25 minutes Jaziel Gomez MD Work Phone: [facility] Comment on above: Paroxysmal atrial fi brillation (CMS/HCC) (Primary Dx); SSS (sick sinus syndrome) (CMS/HCC); long-term current use of anticoagulant therapy; Pacemaker; BMI 25.0-25.9,adult; Former smoker Start: 03-01-2023 End: 03-01-2023 ambulatory SHAIKH TIFFANY Not Available Start: 01-25-2023 End: 01-25-2023 ambulatory Jaziel Gomez Facility:[facility] Start: 01-25-2023 End: 01-25-2023 ambulatory MD Shaikh Allen Work Phone: [facility] Work Phone: Start: 01-25-2023 End: 01-25-2023 Patient encounter procedure MD Shaikh Allen Work Phone: [facility] Start: 11-10-2022 Office outpatient vi sit 25 minutes No PCP None [facility] 250 DO Work Phone: Start: 11-10-2022 ambulatory Judy Asif Facility:[id number] Start: 10-25-2022 Office outpatient vi sit 25 minutes No PCP None [facility] 250 DO Work Phone: Start: 10-25-2022 Patient encounter procedure No PCP None [facility] 250 DO Work Phone: Start: 10-25-2022 ambulatory Judy Asif Facility:1 [id number] Start: 10-18-2022 Chart Update No PCP None [facility] 250 DO Work Phone: Start: 10-18-2022 End: 10-18-2022 ambulatory Shaikh Tiffany Facility:[id number] Start: 10-18-2022 End: 10-18-2022 ambulatory MD Shaikh Allen Work Phone: [facility] Work Phone: Start: 10-18-2022 End: 10-18-2022 Patient encounter procedure MD Shaikh Allen Work Phone: [facility] Start: 09-14-2022 End: 09-14-2022 ambulatory Imad Asaad Other [facility] Other Start: 09-14-2022 Office outpatient ne w 45 minutes Imad Asaad [facility] Start: 07-23-[address] Jaziel Gomez II Facility: Start: 07-19-[address] Jaziel Gomez II Facility:[id number] Start: 07-18-2022 ambulatory Judy Asif Facility:9 0 Start: 07-17-2022 ambulatory Judy Asif Facility:9 0 Start: 07-16-[address] Jaziel Gomez II Facility:[id number] Start: 07-15-2022 ambulatory Judy Asif Facility:9 090 Start: 07-14-2022 ambulatory Judy Asif Facility:9 090 Start: 07-13-2022 ambulatory Judy Asif Facility:9 090 Start: 07-12-2022 ambulatory Judy Asif Facility:[facility] Start: 07-12-2022 ambulatory Judy Asif Facility:9 090 Start: 07-11-2022 ambulatory Judy Asif Facility:9 090 Start: 07-11-2022 ambulatory Judy Asif Facility:9 090 Start: 07-11-2022 End: 07-19-2022 Evaluation and management of inpatient PHYSICIAN WILI LACY Facility:[facility] Start: 07-10-2022 Evaluation and management of inpatient MD Iris Holliday Work Phone: [facility] Work Phone: Start: 12-09-2021 End: 12-09-2021 ambulatory QIANA MUNROE [facility] Start: 11-16-2021 End: 11-17-2021 ambulatory NIVIA WAGNER Facility:H1 Start: 11-05-2021 End: 11-06-[address] KATE BUSH Facility:H1 Start: 08-14-[address] CHAPINCITO MALLORY Facility:H1 Start: 07-16-2021 End: 07-27-2021 Evaluation and management of inpatient SHAIKH Rasta ALLEN Facility:H1 Procedures Date Procedure Procedure Detail Performing Clinician Start: 05-04-2023 ECG 12-LEAD JAZIEL MIRANDA Start: 05-04-2023 Ecg routine ecg w/le ast 12 lds w/i&r Jaziel Gomez MD Work Phone: Start: 10-18-2022 Plain chest X-ray MD Eleazar Allen Work Phone: Start: 07-15-2022 Antibody screen Shaikh Tiffany Comment on above: Order Comment: Trans fuse now? Y Number of units to transfuse now? 1 Result Comment: PERF ORMED BY: [facility] [address] [place] [address] PATHOLOGIST CLINICAL NURSE LEADER ABDIEL MTZ M.D. Start: 07-10-2022 Screening for occult blood in feces MD Iris Holliday Work Phone: Start: 07-17-2021 Assistance with Respiratory Ventilation, Less than 24 Consecutive Hours, Continuous Positive Airway Pressure NONE LISTED REQUEST Excision of cyst No PCP None Hernia repair No PCP None Insertion of pacemak er pulse generator No PCP None Operation on rectum No PCP N one Percutaneous transluminal angioplasty of iliac artery No PCP None NEGATED: Highlighted row has not occurred! Total colonoscopy No PCP None Plan of Treatment Date Care Activity Detail Author Start: 01-09-2024 End: 01-09-2024 Patient encounter procedure 01/09/2024 11:30 AM EST Office Visit [facility] [address] [place] [id number] Judy Asif, PARAMEDIC SUPERVISOR-DIRECTOR OF CAMPUS RECREATION [address] [place], [place] [id number] [facility] Start: 05-04-2023 FUV, Provider: Jaziel Gomez, Status: Pen, Time: 2:50 PM FUV, Provider: Jaziel Gomez, Status: Pen, Time: 2:50 PM [facility] 250 DO Work Phone: Start: 11-10-2022 FUV, Provider: Judy Polo, Status: Pen, Time: 12:30 PM FUV, Provider: Judy Polo, Status: Pen, Time: 12:30 PM [facility] 250 DO Work Phone: Start: 10-29-2022 Influenza vaccination Influenza Vaccine (#1) [facility] Start: 10-25-2022 FUV, Provider: Judy Polo, Status: Pen, Time: 10:00 AM FUV, Provider: Judy Polo, Status: Pen, Time: 10:00 AM [facility] 250 DO Work Phone: Start: 07-15-2022 Comprehensive metabolic 2000 panel - Serum or Plasma [facility] Start: 07-15-2022 [facility] Start: 07-14-2022 Comprehensive metabolic 1999 panel - Serum or Plasma [facility] Start: 07-14-2022 [facility] Start: 07-13-2022 Comprehensive metabolic 1999 panel - Serum or Plasma [facility] Start: 07-13-2022 [facility] Start: 07-12-2022 Comprehensive metabolic 1999 panel - Serum or Plasma [facility] Start: 07-12-2022 [facility] Start: 07-11-2022 End: 07-12-2022 [facility] Start: 07-11-2022 Referral to strategic insights lead [facility] Start: 07-11-2022 Consultation [facility] Start: 07-11-2022 Referral to business case analyst [facility] Start: 07-11-2022 End: 07-11-2022 [facility] Start: 07-11-2022 CT of head without contrast CT head/brain wo con [facility] Start: 07-11-2022 CT Unspecified body region WO contrast [facility] Start: 07-10-2022 End: 07-10-2022 [facility] Start: 07-10-2022 Microbial culture of sputum [facility] Start: 07-10-2022 Ultrasonography of abdomen US abdomen limited [facility] Start: 07-10-2022 Consultation [facility] Start: 07-10-2022 Hospital admission [facility] Start: 07-10-2022 Plain chest X-ray XR chest 1V portable [facility] Start: 07-10-2022 XR Chest Single view [facility] Start: 07-10-2022 CT Abdomen and Pelvis WO contrast [facility] Start: 07-10-2022 CT Chest WO contrast [facility] Start: 07-10-2022 CT of abdomen and pelvis without contrast CT abdomen pelvis wo con [facility] Start: 07-10-2022 CT of chest without contrast CT chest wo [facility] Start: 07-10-2022 Plain chest X-ray XR chest 1V portable [facility] Start: 07-10-2022 XR Chest Single view [facility] Start: 07-10-2022 Bacteria identified in Blood by Culture [facility] Start: 07-10-2022 Bacteria identified in Urine by Culture [facility] Start: 10-05-2020 Abdominal aortic aneurysm screening Abdominal Aortic Aneurysm (AAA) Screening [facility] Start: 10-05-2005 Zoster Vaccines (1 of 2) Zoster Vaccines (1 of 2) [facility] Start: 10-05-1977 DTaP/Tdap/Td Vaccines (1 - Tdap) DTaP/Tdap/Td Vaccines (1 - Tdap) [facility] Start: 10-05-1973 Diabetes mellitus screening Diabetes Screening [facility] Start: 10-05-1973 Hepatitis C screening Hepatitis C Screening [facility] Start: 10-05-1961 Pneumococcal Vaccine: 65+ Years (1 - PCV) Pneumococcal Vaccine: 65+ Years (1 - PCV) [facility] Start: 04-07-1956 COVID-19 Vaccine (#1) COVID-19 Vaccine (#1) [facility] Start: 1955 Lipid panel Lipid Panel [facility] Start: 1955 Medicare Annual Wellness Visit Medicare Annual Wellness Visit (AWV) [facility] Start: 1955 Screening for malignant neoplasm of colon [facility] Albumin/Globulin ratio [facility] Anion gap measurement [facility] aPTT in Platelet poo r plasma by Coagulation assay [facility] Basophils [#/volume] in Blood by Automated count [facility] Basophils/100 leukoc ytes in Blood by Automated count [facility] Eosinophils [#/volum e] in Blood [facility] Eosinophils [Presenc e] in Urine sediment by Dodge stain [facility] Eosinophils/100 leuk ocytes in Blood by Automated count [facility] Erythrocyte distribu tion width [Ratio] by Automated count [facility] Erythrocytes [#/volu me] in Blood [facility] Globulin [Mass/volum e] in Serum [facility] Hematocrit [Volume F raction] of Blood [facility] Hemoglobin [Mass/vol ume] in Blood [facility] INR in Platelet poor plasma by Coagulation assay [facility] Leukocytes [#/volume ] corrected for nucleated erythrocytes in Blood by Automated coun [facility] Leukocytes [#/volume ] in Blood [facility] Lymphocytes [#/volum e] in Blood by Automated count [facility] Lymphocytes/100 leuk ocytes in Blood by Automated count [facility] MCH [Entitic mass] b y Automated count [facility] MCHC [Mass/volume] b y Automated count [facility] MCV [Entitic volume] by Automated count [facility] Monocytes [#/volume] in Blood by Automated count [facility] Monocytes/100 leukoc ytes in Blood by Automated count [facility] Neutrophils [#/volum e] in Blood by Automated count [facility] Neutrophils/100 leuk ocytes in Blood by Automated count [facility] Nucleated erythrocyt es [Presence] in Blood by Automated count [facility] Platelet mean volume [Entitic volume] in Blood by Automated count [facility] Platelets [#/volume] in Blood [facility] Payers Date Payer Category Payer Medicare MEDICARE MEDICAR E PART A AND B [id number] 2020-Present [address] [place] [address] [id number] 1959 Medicaid [id number] 1959 Medicare [id number] 1959 Self-pay 1955 Unknown [id number] 2.16.840.1.755102.3.579.2.593 1955 Unknown [id number] 2.16.840.1.406351.3.579.2.593 1955 Unknown [id number] 2.16.840.1.391280.3.579.2.593 1955 Unknown [id number] 2.16.840.1.477827.3.579.2.593 1955 Unknown [id number] 2.16.840.1.450149.3.579.2.356 1955 Unknown [id number] 2.840.1.772358.3.579.2.356 1955 Unknown [id number] 2.840.1.901682.3.579.2.356 1955 Unknown [id number] 2.840.1.887681.3.579.2.356 1955 Unknown [id number] 2.840.1.194562.3.579.2. 1955 Unknown [id number] 2.0.1.493400.3.579.2.356 1955 Unknown [id number] 2.840.1.644859.3.579.2. 1955 Unknown [id number] 2.0.1.877760.3.579.2. 1955 Unknown [id number] 2.840.1.350037.3.579.2. 1955 Unknown [id number] 2.0.1.605746.3.579.2.356 1955 Unknown [id number] 2.840.1.218571.3.579.2. 1955 Unknown [id number] 2.840.1.916417.3.579.2.356 1955 Unknown [id number] 2.840.1.432829.3.579.2.356 1955 Unknown [id number] 2.840.1.199960.3.579.2. 1955 Unknown [id number] 2.840.1.634459.3.579.2.1259 1955 Unknown [id number] 2.840.1.050027.3.579.2.1244 Medicare Medicare [id number] Unknown Unknown [id number] Unknown [id number] 2.16.840.1.038278.3.579.2.531 Unknown [id number] 2.16.840.1.955609.3.579.2.531 Unknown [id number] 2.16.840.1.987695.3.579.2.531 Social History Date Type Detail Facility Start: 07-11-2022 End: 07-16-2022 Tobacco smoking status NHIS Never smoked tobacco (finding) [facility] Start: 1955 Sex Assigned At Male F [facility] Start: 05-04-2023 Sex Assigned At N [facility] [employer] Other Start: 05-04-2023 Occasional alcohol use Occasional al cohol use -[facility] 250 DO Work Phone: Comment on above: 3-4 beers weekly; Start: 05-04-2023 Tobacco smoking stat us [facility] Ex-smoker [facility] End: 06-28-2022 History of tobacco use Current smoker [facility] Work Phone: End: 06-28-2022 History of tobacco use Cigarette Smoker [facility] Work Phone: Start: 05-04-2023 Tobacco use and exposure Smokeless tobacco non-user [facility] Work Phone: Start: 05-04-2023 Alcohol intake Current drinke r of alcohol (finding) [facility] Work Phone: Start: 1955 Sex Assigned At Not on file U [facility] Work Phone: Start: 04-24-2023 End: 05-04-2023 Exposure to SARS-CoV-2 (event) Not sure [facility] Medical Equipment Procedure Code Equipment Code Equipment Origin al Text Equipment Identifier Dates Insertion, pacemaker Endocardial pacing lead [id number] FDA Start: 07-16-2022 Insertion, pacemaker Endocardial pacing lead [id number] FDA Start: 07-16-2022 Insertion, pacemaker Dual-chamber implantable pacemaker, rate-responsive ()[id number] FDA Start: 07-16-2022 Goals Date Patient Goal Desired Activity /State Functional Status Date Assessment Result Facility 07-11-2022 Functional status Patient Not at Baseline [facility] Work Phone: Mental Status Date Assessment Result Facility 07-11-2022 Cognitive function Cognitive Sta tus Patient Not at Baseline [facility] Work Phone: Clinical Notes 12-09-2021 to 05-04-2023 Jaziel Gomez MD - 05/04/2023 2:50 PM ESTPatient Instructions Note Date & Type Note Facility 05-04-2023 History of Presen t illness Narrative Subjective Jaime Lechuga is a 67 y.o. male Chief Complaint Follow-up HPI Patient returns in follow-up of problems as noted. In the interim he is done well. I cannot elicit any angina CHF or arrhythmia symptomatology. It appears that he is predominantly in sinus rhythm based upon auscultation and review of pacemaker checks. His stroke risk is also mitigated by concomitant use of Eliquis therapy and because of this we believe he is protected well. His sick sinus syndrome was mitigated by pacemaker implant. He had a fall after the device was implanted and device checks do not demonstrate any arrhythmia that pertains to the fall. We discussed his pacemaker checks and they appear adequate. His lifestyle modification (smoking cessation) was acknowledged and he was congratulated in this regard. We advocated a heart smart diet but otherwise no changes in therapy appear indicated or necessary. Review of Systems All other systems reviewed and are negative. Vitals: 05/04/23 1505 BP: 138/76 BP Location: Left arm Patient Position: Sitting Pulse: 105 Weight: 77.1 kg (170 lb) Height: 1.727 m (5' 8 ) EKG done in office today Objective Physical Exam Constitutional: Appearance: Normal appearance. HENT: Nose: Nose normal. Neck: Vascular: No carotid bruit. Cardiovascular: Rate and Rhythm: Normal rate. Pulses: Normal pulses. Heart sounds: Normal heart sounds. Pulmonary: Effort: Pulmonary effort is normal. Abdominal: General: Bowel sounds are normal. Palpations: Abdomen is soft. Musculoskeletal: General: Normal range of motion. Cervical back: Normal range of motion. Right lower leg: No edema. Left lower leg: No edema. Skin: General: Skin is warm and dry. Neurological: General: No focal deficit present. Mental Status: He is alert. Psychiatric: Mood and Affect: Mood normal. Behavior: Behavior normal. Thought Content: Thought content normal. Judgment: Judgment normal. Allergies Codeine Current Medications Current Outpatient Medications: apixaban (Eliquis) 5 mg tablet, Take 1 tablet (5 mg) by mouth 2 times a day., Disp: , Rfl: dofetilide (Tikosyn) 250 mcg capsule, Take 2 capsules (500 mcg) by mouth every 12 hours., Disp: , Rfl: furosemide (Lasix) 20 mg tablet, Take 1 tablet (20 mg) by mouth once daily., Disp: , Rfl: metoprolol succinate XL (Toprol-XL) 25 mg 24 hr tablet, Take 1 tablet (25 mg) by mouth once daily. Do not crush or chew., Disp: , Rfl: omeprazole (PriLOSEC) [address] capsule, Take 1 capsule (40 mg) by mouth once daily in the morning. Take before meals. Do not crush or chew., Disp: , Rfl: oxygen (O2) gas therapy, Inhale 1 each continuously. 2 LPM, Disp: , Rfl: Spiriva with HandiHaler 18 mcg inhalation capsule, Place 1 capsule (18 mcg) into inhaler and inhale if needed., Disp: , Rfl: Assessment/Plan 1. Paroxysmal atrial fibrillation (CMS/HCC) Probably infrequent breakthroughs or paroxysms of atrial fibrillation based upon lack of symptoms and review of pacemaker checks. Rhythm appears to be maintained with Tikosyn and stroke risk mitigated by concomitant anticoagulant therapy 2. SSS (sick sinus syndrome) (CMS/HCC) Mitigated with pacemaker implant. 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 Necessary and/or appropriate to mitigate stroke risk. 4. Pacemaker Device checks are reviewed and performance of device is adequate Scribe Attestation By signing my name below, I, Leanne Allred LPN attest that this documentation has been prepared under the direction and in the presence of Jaziel Gomez MD. Provider Attestation - Scribe documentation All medical record entries made by the Scribe were at my direction and personally dictated by me. I have reviewed the chart and agree that the record accurately reflects my personal performance of the history, physical exam, discussion and plan. documented in this encounter [facility] Work Phone: 05-04-2023 Instructions Brigida Hernandez LPN - 05/04/2023 2:50 PM EST Please bring all medicines, vitamins, and herbal supplements with you when you come to the office. Prescriptions will not be filled unless you are compliant with your follow up appointments or have a follow up appointment scheduled as per instruction of your physician. Refills should be requested at the time of your visit. Fall Prevention Education Given Pacemaker/Defibrillator follow up per routine documented in this encounter [facility] Work Phone: 09-14-2022 Evaluation note Encounter Date Diagnosis Assessment Notes Aug, Anemia (ICD-10 - D64.9) [employer] Other 05-14-2023 History and physical note Author Iris Lassiter [facility] July 11, 2022 1:36am Note Date/Time July 10, 2022 11:05 pm [facility] [address] [place] [address] Hospitalist H&P Signed Patient: Jaime Lechuga MR#: [id number] : 1955 Acct:[id number] Age/Sex: 66 / M Adm Date: 3 Loc: Room: [address] [place] [address] Type: ADM IN Attending Dr: Iris Lassiter [...] 07/10/22 19:28 MPV 9.9 fl (6.6-10.1) 07/10/22 19:28 Neut % (Auto) 82.1 % (.) 07/10/22 19: Lymph % (Auto) 7.3 % (.) 07/10/22 19: Rice % (Auto) 10.0 % (.) 07/10/22 19: Eos % (Auto) 0.0 % (.) 07/10/22 19: Baso % (Auto) 0.6 % (.) 07/10/22 19: Nucleat RBC Rel Count 1.7 /100 WBC (0-0.5) H 07/10/22 19:28 Neut # (Auto) 10.5 x10E3/uL (1.8-7.7) H 07/10/22 19:28 Lymph # (Auto) 0.9 x10E3/uL (1.00-4.8) L 07/10/22 19:28 Rice # (Auto) 1.3 x10E3/uL (0.0-0.8) H 07/10/22 19:28 Eos # (Auto) 0.0 x10E3/uL (0.0-0.45) 07/10/22 19:28 Baso # (Auto) 0.1 x10E3/uL (0.0-0.2) 07/10/22 19:28 Monocyte Dist Width 17.34 % (0.00-20.00) 07/10/22 19:28 Platelet Estimate Normal (Normal) 07/10/22 19:28 Large Platelets Slight 07/10/22 19:28 Plt Morphology Comment N/A 07/10/22 19:28 RBC Morphology N/A 07/10/22 19:28 Polychromasia Moderate 07/10/22 19:28 Hypochromasia Moderate 07/10/22 19:28 Anisocytosis Slight 07/10/22 19:28 Microcytosis Slight 07/10/22 19:28 PT 48.8 Seconds (9.0-12.9) H 07/10/22 19:28 INR 4.3 07/10/22 19:28 APTT 28.7 Seconds (25.1-36.5) 07/10/22 19:28 D-Dimer Quant (PE/DVT) 1944 ng/mL (0-243) H [...] Lactic Acid 6.1 mmol/L (0.5-2.2) H* 07/10/22 19:28 Calcium 7.1 mg/dL (8.6-10.3) L 07/10/22 19:28 Magnesium 2.1 mg/dL (1.9-2.7) 07/10/22 19:28 Total Bilirubin 1.3 mg/dl (0.3-1.0) H 07/10/22 19:28 AST 789 U/L (13-39) H 07/10/22 19:28 ALT 615 U/L (7-52) H 07/10/22 19: Alkaline Phosphatase 235 U/L (34-104) H 07/10/22 19: Total Creatine Kinase 53 U/L (30-223) 07/10/22 19: Troponin I High Sens 48.3 pg/mL (0.0-20.0) H 07/10/22 19: Total Protein 6.5 gm/dL (6.4-8.9) 07/10/22: Albumin 3.3 gm/dL (3.5-5.7) L 07/10/22: Globulin 3.2 gm/dL 07/10/22: Albumin/Globulin Ratio 1.0 07/10/22: TSH 3rd Generation 2.96 uIU/mL (0.45-5.33) 07/10/22: Urine Color Dark yellow (Yellow) A 07/10/22: Urine Appearance Cloudy (Clear) A 07/10/22: Urine pH 5.0 (5.0-9.0) 07/10/22: Ur Specific [place] 1.020 (1.001-1.030) 07/10/22: Urine Protein 100 mg/dL (Negative) H 07/10/22: Urine Glucose (UA) Normal mg/dL (Normal) 07/10/22: Urine Ketones Trace (Negative) H 07/10/22 22: Urine Occult Blood Negative (Negative) 07/10/22 22: Urine Nitrite Negative (Negative) 07/10/22: Urine Bilirubin 1+ (Negative) H 07/10/22 22: Urine Urobilinogen Normal mg/dL (Normal) 07/10/22: Ur Leukocyte Esterase 1+ (Negative) H 07/10/22 22: Urine RBC 5-9 /HPF (0-4) H 07/10/22 22: Urine WBC 5-9 /HPF (0-4) H 07/10/22 22: Ur Squamous Epith Cells 3-4 /HPF (0-2) H 07/10/22 22: Urine Bacteria None seen (None Seen) 07/10/22: Hyaline Casts 9-19 /LPF (0-8) H 05/13/23 22:23 Digoxin 1.5 ng/mL (0.9-2.0) 07/10/22 19:28 [...] days): 3 Documented By: Iris Lassiter DO 07/10/22 05 Signed By: <Electronically signed by Iris Lassiter DO> 07/11/22 0136 [facility] Work Phone: [phone] 781-804910-12-2022 [id number] discussion with patient regarding importance of smoking cessation he voiced understanding and states he will try to quit smoking again in light he is only smoking 4 to 5 cigarettes a dayUnSt. Elizabeth Hospital 12-09-2021 NoteNYHC II-currently euvolemic without exacerbation Continue goal-directed medical therapy-he has not needed any diuresis. Continue fluid restriction 1-1/2 to 2 L/day, low-sodium diet, daily weights discussed with patient when to call office for concerns of increased weight, increased shortness of breath or orthopnea or any other concerns and he voiced understandingUnSt. Elizabeth Hospital10-12-2022 NoteNo concerning symptoms today, strongly recommended to continue medication regimen and to quit smokingUnSt. Elizabeth Hospital10-12-2022 Note [id number]= 4 age, HTN, CHF, vascular disease Continue eliquis anticoagualtion- denied bleeding tendencies Currently in rhythm per assessment Continue diltiazem, digoxin and metoprolol as prescribedMercy Health St. [facility]10-12-2022 NoteHPI: Jaime Lechuga is a 66 y.o. [...] Echo 07/17/21 Assessment/Plan: Paroxysmal atrial fibrillation (CMS/HCC) [id number]= 4 age, HTN, CHF, vascular disease Continue eliquis anticoagualtion- denied bleeding tendencies Currently in rhythm per assessment Continue diltiazem, digoxin and metoprolol as prescribed Peripheral vascular disease (CMS/HCC) No concerning symptoms today, strongly recommended to continue medication regimen and to quit smoking Chronic diastolic heart failure (CMS/HCC) [facility] II-currently euvolemic without exacerbation Continue goal-directed medical [...] to 1 year unless he has any concernsMercy Health St. [facility]10-12-2022 NoteSubjective Jaime Lechuga is a 66 y.o. [...] Lab Review: Assessment/Plan There were no encounter diagnoses.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 Pacemaker Cardiac pacemaker in situ BMI 25.0-25.9,adult Former smoker Personal history of tobacco use, presenting hazards to health documented in this encounter [facility] Work Phone: History general Narrative - Reported* Type Description Date Medical History hernia Medical History pacemaker Medical History COPD Medical History ILIAC STENT PLACEMENT Medical History RECTAL FISTULA Surgical History hernia repair Surgical History ILIAC STENT PLACEMENT Surgical History RECTAL FISTULA Hospitalization History SEE ABOVE [employer] Other History of Present illness Narrative* The [...] medication regimen. He denies medication side effects. -[facility] 250 DO Work Phone: History of Present [...] medication regimen. He denies medication side effects. -[facility] [employer] 250 DO Work Phone: History of Present [...] * Risks: no increased risk for falling. -[facility] [employer] 250 DO Work Phone: Summary Purpose Family History [...] This is initial in clinic follow-up at [facility]. * Patient reports remote history of iliac stenting in [place] and has been maintained on Plavix for 7 years, follows with vascular in [place]. Reports being hospitalized last year in [place] due to atrial fibrillation and started on Eliquis at that time, no antiarrhythmics. * [place] 2022 [place] [facility] [place] to [place], seen in consult by [...] labs approximately 1 month ago at the . * He was seen outpatient by vascular [...] any type of bleeding diatheses. * SJM 2272 dual chamber PPM: Sep 2022 [...] NSTEMI. No exertional symptoms. * Clinically stable. Reason for Referral Specialty Diagnoses / Procedures Referred By Contac t Referred To Contact Diagnoses Paroxysmal atrial fibrillation ([facility]/HCC) Procedures ECG 12 Lead Jaziel Gomez MD [address] [facility], [place] [id number] Referral ID Status Reason Start Date Expiration Date V isits Requested Visits Authorized [id number] Authorized 05/04/2023 05/03/2024 1 1 Specialty Diagnoses / Procedures Referred By Contac t Referred To Contact Cardiology Diagnoses Paroxysmal atrial fibrillation ([facility]/HCC) Procedures Follow Up In Cardiology Jaziel Gomez MD [address] [facility] [address], [address] [address] Judy Asif, PARAMEDIC SUPERVISOR-DIRECTOR OF CAMPUS RECREATION [address] [facility] [address], [address] [address] Referral ID Status Reason Start Date Expiration Date V isits Requested Visits Authorized [id number] Authorized 05/04/2023 05/03/2024 1 1 Additional Source Comments (unrecognized sect ion and content) No Status Records FoundNo Status Records FoundNo Status Records FoundNo Status Records FoundNo Status Records FoundNo Status Records FoundNo Status Records Found INFORMATION SOURCE (unrecogn ized section and content) DATE CREATED AUTHOR 11/25/2021 [facility] DATE CREATED AUTHOR AUTHOR'S ORGANIZ ATION 12/09/2021 [facility] DATE CREATED AUTHOR AUTHOR'S ORGANIZ ATION 11/12/2022 [facility] DATE CREATED AUTHOR AUTHOR'S ORGANIZ ATION 11/12/2022 [employer] DATE CREATED AUTHOR AUTHOR'S ORGANIZ ATION 03/02/2023 [facility] DATE CREATED AUTHOR AUTHOR'S ORGANIZ ATION 04/08/2023 [facility] DATE CREATED AUTHOR AUTHOR'S ORGANIZ ATION 05/05/2023 [facility] [employer] Teams (unrecognized sec tion and content) Team [...] Active Jaziel Gomez MD Attending Provider Active Manager Reporting Relationship Specialty Start Date End Date Shaikh Allen MD [address] [place] [address] PCP - General Internal Medicine 05/04/23 Jaziel Gomez MD [address] [facility], [facility] [address] [place] [address] Consulting Physician Cardiology 05/04/23 REASON FOR VISIT (unrecogniz ed section and content) Reason Comments Follow-up 6 months Goals (unrecognized section and content) Goals may [...] BE BASED ON THE PRIMARY CLINICAL RECORDS. [facility] [employer] [facility]. provides no warranty or guarantee of the accuracy or completeness of information in this document.
== END 2023-05-23 10:16 | disposition home or self-care (01) ==
LOC: EC 10:15
PROVIDERS: Visit Provider Orthopaedic Surgery
DX: S42.294D Other nondisplaced fracture of upper end of right humerus, subsequent encounter for fracture with routine healing (principal)
CPT/HCPCS: 73030

== ENCOUNTER 2023-07-22 09:58 | Outpatient (OUT) | payer MEDICARE, SELFPAY ==
--- NOTE | 2023-07-22 | US_ITS ---
The [address] [address] Patient Name: ALESSANDRA LECHUGA MRN: [id number] date: 1955 Sex: M Assigned Patient Location: US Current Patient Location: US Accession/Order Number: [id number] Exam Date: 07/22/2023 10:09 Report Date: 07/22/2023 13:05 At the request of: MARIELOS ROMERO Procedure: US abdominal aortic aneurysm EXAM: US abdominal aortic aneurysm HISTORY: ACUTE OCCLUSION OF ILIAC ARTERY DUE TO THROMBOSIS I74.5. TECHNIQUE: Ultrasound was performed of the abdominal aorta. COMPARISON: None. FINDINGS: AORTA: No abnormal dilation of the abdominal aorta. Atherosclerotic plaque is noted. OTHER: Endovascular stent within left common iliac artery, 1.6 cm in diameter. US/US abdominal aortic aneurysm IMPRESSION: 1. No aortic aneurysm. 2. Prior endovascular stenting of left common iliac artery which appears patent. Electronically authenticated by: KATE BUSH Date: 07/22/2023 13:05
--- NOTE | 2023-07-22 | US_ITS ---
[address] [address] Patient Name: ALESSANDRA LECHUGA MRN: [id number] date: 1955 Sex: M Assigned Patient Location: US Current Patient Location: CT Accession/Order Number: [id number] Exam Date: 07/22/2023 10:09 Report Date: 07/26/2023 10:12 At the request of: MARIELOS ROMERO Procedure: US arterial duplex LE BI EXAMINATION: US arterial duplex LE BI HISTORY: SEVERE CLAUDICATION I73.9 COMPARISON: No relevant comparison available. TECHNIQUE: Color and Duplex Doppler ultrasound evaluation analysis were performed in the usual manner. FINDINGS: RIGHT LOWER EXTREMITY ARTERIAL: Abnormal monophasic waveform throughout the lower extremity, including the external iliac artery. Moderate atherosclerotic narrowing of the vessels throughout. External Iliac PSV: 142.3 cm/s External Iliac EDV: 30.8 cm/s Common Femoral PSV: 146.9 cm/s Common Femoral EDV: 12.2 cm/s Superficial Femoral Proximal PSV: 66.8 cm/s Proximal EDV: 4.7 cm/s Mid PSV: 87.5 cm/s Mid EDV: 0.0 cm/s Distal PSV: 44.8 cm/s Distal EDV: 6.0 cm/s Popliteal Proximal PSV: 61.6 cm/s Popliteal Proximal EDV: 7.2 cm/s Posterior Tibial Proximal PSV: 23.2 cm/s Proximal EDV: 9.0 cm/s Mid PSV: 21.1 cm/s Mid EDV: 5.4 cm/s Distal PSV: 30.3 cm/s Distal EDV: 6.8 cm/s Anterior Tibial Proximal PSV: 37.4 cm/s Proximal EDV: 9.7 cm/s Mid PSV: 37.4 cm/s Mid EDV: 12.5 cm/s Distal PSV: 42.4 cm/s Distal EDV: 10.4 cm/s LEFT LOWER EXTREMITY ARTERIAL: Abnormal monophasic waveform within external iliac artery. Complete occlusion of proximal femoral artery with trace amount of reconstituted flow within mid and distal femoral artery. Abnormal monophasic waveform throughout the lower extremity. Parvus-tardus type monophasic waveform within the popliteal and calf arteries. External Iliac PSV: 180.3 cm/s External Iliac EDV: 8.4 cm/s Common Femoral PSV: 119.8 cm/s Common Femoral EDV: 8.4 cm/s Superficial Femoral Proximal PSV: Absent Proximal EDV: Absent Mid PSV: 27.6 cm/s Mid EDV: 0.0 cm/s Distal PSV: 50.9 cm/s Distal EDV: 0.0 cm/s Popliteal Proximal PSV: Popliteal Proximal EDV: Posterior Tibial Proximal PSV: 24.4 cm/s Proximal EDV: 5.0 cm/s Mid PSV: 20.6 cm/s Mid EDV: 3.8 cm/s Distal PSV: 15.4 cm/s Distal EDV: Anterior Tibial Proximal PSV: 23.0 cm/s Proximal EDV: 6.5 cm/s Mid PSV: 24.4 cm/s Mid EDV: 6.3 cm/s Distal PSV: 20.6 cm/s Distal EDV: 7.6 cm/s US/US arterial duplex LE BI IMPRESSION: 1. 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 2. Abnormal monophasic waveform throughout both lower extremities with low/slow blood flow. 3. Moderate-marked atherosclerotic disease bilaterally. 4. Consider CT angiography of the abdomen and pelvis with bilateral lower extremity runoff for further evaluation. Electronically authenticated by: KATE BUSH Date: 07/26/2023 10:12
--- NOTE | 2023-07-22 13:00 | CA_ITS ---
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 Right: - significant pressure gradient between the brachial and thigh cuff - abnormal LASHA Left: - significant pressure gradient between the brachial and thigh cuff - significant pressure gradient between the thigh and calf cuff - abnormal LASHA Impression: - significant inflow (femoral artery or above) arterial disease with moderate hemodynamic impairment of the right lower extremity at rest. (right LASHA 0.75) - significant inflow (femoral artery or above) and femoropopliteal arterial disease with moderate-severe hemodynamic impairment of the left lower extremity at rest. (left LASHA 0.53) Electronically Signed On 07-22-2023 18:03:48 EDT by JOSE MARQUEZ
== END 2023-07-22 09:59 | disposition home or self-care (01) ==
LOC: US 09:58
PROVIDERS: Visit Provider Student in an Organized Health Care Education/Training Program
DX: I73.9 Peripheral vascular disease, unspecified (principal); I74.5 Embolism and thrombosis of iliac artery
CPT/HCPCS: 76775; 93923; 93925

== ENCOUNTER 2023-07-22 09:59 | Outpatient (OUT) | payer MEDICARE, SELFPAY ==
--- NOTE | 2023-07-22 | CT_ITS ---
[address] [address] Patient Name: ALESSANDRA LECHUGA MRN: [id number] date: 1955 Sex: M Assigned Patient Location: CT Current Patient Location: Accession/Order Number: [id number] Exam Date: 07/22/2023 10:13 Report Date: 07/26/2023 06:34 At the request of: MELITON HUGHES Procedure: CT chest wo con EXAMINATION: CT chest wo con HISTORY: SOLITARY PULMONARY NODULE R91.1 COMPARISON: CTA chest 11/29/2022, 07/17/2021 TECHNIQUE: Multi-planar CT images were obtained without and/or with IV contrast as indicated by examination type. Axial, Coronal, and Sagittal images. Dose reduction techniques were achieved by using automated exposure control and/or adjustment of mA and/or kV according to patient size and/or use of iterative reconstruction technique. FINDINGS: LUNGS: Stable 1.1 cm round nodule within right lower lobe superior segment. Stable chronic calcifications within left lower lobe superior segment. Moderate emphysematous changes bilaterally. No acute infiltrates. PLEURA: No mass, effusion, or pneumothorax. VASCULATURE: No abnormality. MILVIA: Calcified lymph nodes compatible with chronic granulomatous disease. MEDIASTINUM: Calcified lymph nodes. No enlarged or suspicious lymph nodes. CARDIAC: No enlargement, pericardial thickening, or significant calcification. Coronary artery calcifications: Mild. Left chest wall cardiac pacer. AORTA: No aneurysm or dissection. CHEST WALL: No mass or axillary adenopathy. BONES: No bone lesion or fracture. LIMITED ABDOMEN: No suspicious findings Limited images of the upper abdomen. OTHER: Negative. CT/CT chest wo con IMPRESSION: 1. Right lower lobe 1.1 cm round nodule; nonspecific but stable since earliest study on 07/17/2021, which favors benign etiology. 2. Evidence of chronic granulomatous disease. 3. Moderate emphysematous changes. Electronically authenticated by: KATE BUSH Date: 07/26/2023 06:34
== END 2023-07-22 10:00 | disposition home or self-care (01) ==
LOC: CT 09:59
PROVIDERS: Visit Provider Internal Medicine
DX: I73.9 Peripheral vascular disease, unspecified (principal); I74.5 Embolism and thrombosis of iliac artery; R91.1 Solitary pulmonary nodule
CPT/HCPCS: 71250; 76775; 93923; 93925

== ENCOUNTER 2024-05-03 08:44 | Outpatient (OUT) | payer MEDICARE, SELFPAY ==
--- OUTSIDE RECORDS SUMMARY | 2024-05-03 08:49 | XMS_ITS | CCD ---
Author Organization [facility] Care Team Providers Care Overcaster Name Role Phone REQUEST, NONE LISTED Primary [...] Admitting Unavailable HOY, DR RODRIGUEZ Attending Unavailable SHAINAY, DR RODRIGUEZ Consulting Unavailable REQUEST, NONE LISTED Primary Care Unavaila ble CAROLYNN, DR JOVANI Breaux Consulting Unavailable JABIER, DR ANNA Durán Consulting Unavailable ELEAZAR, DR KATE Zacarias Consulting Unavailable FAY DOMINGUEZ Consulting Unavailable IRIS ADAM Consulting Unavailable SAMSA, MELITON Consulting Unavailable SHAIKH Rasta ALLEN Consulting Unavailable ANA MARIA BORJA Consulting Unavailable ALGHOTHANI, MOHAMAD Consulting Unavailable EDISON MUNROE Attending Unavailable MD Iris Holliday Emergency Provider NO FAMILY, PHYSICIAN Primary Care Provider Unava ilable DO Iris Lassiter Admit Provider [phone] DO Iris Lassiter Attending Provider Asaad, Imad Unavailable None, No PCP Unavailable Unavailable Unavailable Unavailable MD Jaziel Claudio Attending Provider MD Jaguar Allen Primary Care Provider Cyndi Asif Attending Unavailable Diaz Asifna Referring Unavailable Cyndi Asif Attending Unavailable Yefri, Cyndi Referring Unavailable McGuinlulú II, Dr. Jaziel Ramirez Attending Unavailable Patricia II, Dr. Jaziel Ramirez Referring Unavailable McGuinlulú SCANLON, Dr. Jaziel Ramirez Attending Unavailable Patricia II, Dr. Jaziel Ramirez Attending Unavailable MD Tiffany [facility] Primary Care Provider [phone] MD Jaziel Claudio Attending Provider SHAIKH ALLEN Attending Unavailable [facility] Jaziel Claudio MD Unavailable RAN CHAVEZ Attending Unavailable MD Tiffany [facility] Primary Care Provider MD Jaziel Claudio Attending Provider MD Jaziel Claudio Attending Provider NO FAMILY, PHYSICIAN Primary Care Provider Unava ilable Unavailable Primary Care Provider UnavailJaziel Abraham MD Unavailable UnavailJAZIEL Abraham Attending Unavailable [facility] Primary Care Unavailable CYNDI ASIF Attending Unavailable JAZIEL CLAUDIO Referring Unavailable [facility]FF[facility] Primary Care Unavailable Jaziel Claudio Attending Unavail able Jaziel Claudio Admitting Unavail able Tiffany [facility] Primary Care Unavailable Jaziel Claudio Attending Unavail able Jaziel Claudio Admitting Unavail able NO FAMILY, PHYSICIAN Primary Care Unavailable Tere Ybarra Primary Care Unavaila ble Kentrell Garcia Attending Unavailable Kentrell Garcia Admitting Unavailable Jaziel Claudio Attending Unavail able Jaziel Claudio Admitting Unavail able Tere Ybarra Primary Care Unavaila ble Allergies Allergy Classification Reported Allergen(s) Allergy Type Date of Onset Reaction(s) Facility (4 sources) Codeine; Translations: [CODEINE] Drug Allergy 11-05-2021 [facility] Repository (8 sources) Codeine; Translations: [Codeine Derivatives] Drug Allergy 11-05-2021 [place] Other (1 source) Codeine Drug Allergy 09-14-2022 [facility] Repository Medications Current Medications Medication Drug Class(es) Dates Sig (Normalized) Sig (Original) albuterol 0.833 mg/ml / ipratropium bromide 0.167 mg/ml inhalation solution (6 sources) Anticholinergic, beta2-Adrenergic Agonist Start: 07-19-2022 take 1 mL by inhalation every six hours as needed Ipratropium-Albuter ol 0.5 mg-3 mg(2.5 mg base)/3 mL Solution For Nebulization Active 3 ML INHALATION Q6H as needed for Shortness of Breath or wheezin 180 July 18, 2022 11:00pm take 3 mL by inhalat ion every six hours as needed Ipratropium-Albuterol 0.5-2.5 (3) MG/3ML 3 mL as needed Inhalation every 6 hrs Active aspirin 81 mg chewable tablet (3 sources) Platelet Aggregation Inhibitor, Nonsteroidal Anti-inflammatory Drug Start: 07-28-2023 aspirin 81 mg chewable tablet Indications: Severe claudication (CMS-HCC) Chew 1 tablet (81 mg total) and swallow in the morning. 90 tablet 3 07/28/2023 Active take 1 tablet by mouth in the mo rning aspirin 325 mg tablet Take 1 tablet (325 mg total) by mouth in the morning. Active atorvastatin 40 mg oral tablet (2 sources) HMG-CoA Reductase Inhibitor Start: 07-28-2023 take 1 tablet by mouth in the morning atorvastatin (LIPITOR) 40 mg tablet Indications: Severe claudication (CMS-HCC) Take 1 tablet (40 mg total) by mouth in the morning. 90 tablet 3 07/28/2023 Active clindamycin 300 mg oral capsule (5 sources) Lincosamide Antibacterial Start: 07-16-2022 take 2 capsules by mouth every eight hours Clindamycin Hcl 300 mg Capsule Active 600 MG PO Every 8 hours 01 29July 15, 2022 11:00pm Start: 07-16-2022 take 600 mg by mouth every eight hours Clindamycin Hcl Active 600 MG PO Every 8 hours 01 29July 16, 2022 12:00am dofetilide 0.25 mg oral capsule (15 sources) Antiarrhythmic Start: 05-04-2023 End: 03-06-2025 take 2 capsules by mouth every twelve hours dofetilide (Tikosyn) 250 mcg capsule Indications: Paroxysmal atrial fibrillation (CMS/HCC) Take 2 capsules (500 mcg) by mouth every 12 hours. 360 capsule 3 05/04/2023 05/03/2024 Active Start: 07-19-2022 take 1 capsule by [facility] twice daily Dofetilide 250 mcg Capsule Active 250 MCG PO Twice daily 60 July 18, 2022 11:00pm take 1 capsule by [facility] every twelve hours Dofetilide 250 MCG 1 capsule Orally Twice a day Active furosemide 20 mg oral tablet (15 sources) Loop Diuretic Start: 07-19-2022 End: 05-03-2024 take 1 tablet by mouth once daily Furosemide 20 mg Tablet Active 20 MG PO Daily at 0800 July 18, 2022 11:00pm 24 hr metoprolol succinate 25 mg extended release oral tablet (14 sources) beta-Adrenergic Erica Start: 10-25-2022 End: 11-07-2024 take 1 tablet by mouth once daily metoprolol succinate XL (Toprol-XL) 25 mg 24 hr tablet Indications: Paroxysmal atrial fibrillation (Multi) , SSS (sick sinus syndrome) (Multi) Take 1 tablet (25 mg) by mouth once daily. 90 tablet 3 11/08/2023 11/07/2024 Active Start: 10-21-2021 End: 07-19-2022 take 1 tablet by mouth once daily Metoprolol Tartrate 25 mg tablet Discontinued 25 MG PO Daily July 09, 2022 11:00pm July 19, 2022 2:04pm oxygen (O2) gas therapy (2 sources) oxygen (O2) gas therapy Inhale 1 each continuously. 2 LPM Active oxygen (O2) gas therapy Inhale 1 each continuously. 2 LPM 0 Active sertraline 25 mg oral tablet (13 sources) Serotonin Reuptake Inhibitor Start: 07-19-2022 End: 05-04-2023 take 1 tablet by mouth once daily in the evening Sertraline 25 mg Tablet Active 25 MG PO Every evening July 18, 2022 11:00pm Completed/Discontinued Medications Medication Drug Class(es) Dates Sig (Normalized) Sig (Original) albuterol 0.83 mg/ml inhalation solution (3 sources) beta2-Adrenergic Agonist Albuterol Sulfate (2.5 MG/3ML) 0.083% Inhalation Nebulization Solution USE 1 UNIT DOSE EVERY 4-6 HOURS NEEDED FOR WHEEZING . Quantity: 0 Refills: 0 Ordered: 23-Jul-2022 DO Active apixaban 5 mg oral tablet (15 sources) Factor Xa Inhibitor Start: 10-21-2021 take 1 tablet by mouth once daily Apixaban (Eliquis) 5 mg tablet Active 5 MG PO Daily July 09, 2022 11:00pm On Hold: Hold until EGD and colonoscopy are performed Start: 10-21-2021 End: 05-03-2024 take 1 tablet by mouth twice daily apixaban (Eliquis) 5 mg tablet Indications: Paroxysmal atrial fibrillation (Multi) Take 1 tablet (5 mg) by mouth 2 times a day. 180 tablet 3 05/04/2023 05/03/2024 Active clopidogrel 75 mg oral tablet (10 sources) P2Y12 Platelet Inhibitor Start: 07-10-2022 take 1 tablet by mouth once daily Clopidogrel (Plavix) 75 mg Tablet Active 75 MG PO Daily July 09, 2022 11:00pm On Hold: Hold until EGD and colonoscopy are performed digoxin 0.125 mg oral tablet (8 sources) Cardiac Glycoside Start: 10-21-2021 End: 07-19-2022 take 1 tablet by mouth once daily Digoxin 125 mcg (0.125 mg) tablet Discontinued 125 MCG PO Daily July 09, 2022 11:00pm July 19, 2022 2:04pm 24 hr dilTIAZem hydrochloride 180 mg extended release oral capsule (8 sources) Calcium Channel Erica Start: 07-10-2022 End: 07-19-2022 take 1 capsule by mouth once daily Diltiazem Hcl 180 mg capsule,extended release 24 hr Discontinued 180 MG PO Daily July 09, 2022 11:00pm July 19, 2022 2:04pm Start: 10-21-2021 take 1 capsule by [facility] every twenty-four hours in the morning dilTIAZem (TIAZAC) 180 MG 24 hr capsule Take 1 capsule (180 mg total) by mouth in the morning. 10/21/2021 Active omeprazole 40 mg delayed release oral capsule (20 sources) Proton Pump Inhibitor Start: 10-21-2021 End: 04-24-2024 take 1 capsule by mouth once daily Omeprazole 40 mg capsule,delayed release(DR/EC) Discontinued 40 MG PO Daily July 09, 2022 11:00pm July 19, 2022 12:18pm tiotropium 0.018 mg inhalation powder (11 sources) Anticholinergic Start: 07-19-2022 End: 04-24-2024 Spiriva with HandiHaler [address] 1 capsule (18 mcg) into inhaler and inhale if needed. 07/19/2022 04/24/2024 Discontinued (Discontinued by another clinician) Start: 07-19-2022 take 1 capsule by in halation once daily Tiotropium [place] (Spiriva With Handihaler) 18 mcg capsule, w/inhalation device Active 1 CAP INHALATION Daily 60 July 18, 2022 11:00pm puncture 1 cap using device; one dose = 2 inhalations take 1 capsule by in halation once daily Spiriva HandiHaler 18 MCG 1 capsule by inhaling the contents of the capsule using the HandiHaler device Inhalation Once a day Active Problems Active Problems Problem Classification Problem Date Documented Da te Episodic/Chronic Administrative/social admission (5 sources) Advance directive discussed with patient; Translations: [Other specified counseling] 07-15-2022 Episodic Comment on above: Problem List clean-u p per request of Phys. 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 EHR Cmte Cardiac dysrhythmias (7 sources) AV-junctional (lorie) bradycardia; Translations: [Bradycardia, unspecified] 07-10-2022 Episodic Comment on above: Problem List clean-u p per request of Phys. EHR Cmte Chronic obstructive pulmonary disease and bronchiectasis (8 sources) Centrilobular emphysema; Translations: [Chronic obstructive lung disease] Onset: 08-10-2021 07-11-2022 Chronic Comment on above: Problem List clean-u p per request of Phys. EHR Cmte Coagulation and hemorrhagic disorders (7 sources) Thrombocytopenia, unspecified; Translations: [Blood coagulation disorder] Onset: 08-10-2021 07-11-2022 Chronic Comment on above: Problem List clean-u p per request of Phys. EHR [facility] Conduction disorders (12 sources) Unspecified right bundle-branch block; Translations: [Cardiac pacemaker in situ] Onset: 08-10-2021 05-04-2023 Chronic Congestive heart failure; nonhypertensive (3 sources) Acute combined systolic (congestive) and diastolic (congestive) heart failure; Translations: [Chronic diastolic (congestive) heart failure] Onset: 08-10-2021 Chronic Deficiency and other anemia (6 sources) Anemia; Translations: [Anemia, unspecified] 07-12-2022 Episodic Comment on above: Problem List clean-u p per request of Phys. EHR [facility] Deficiency and other anemia (1 source) Anemia, unspecified Episodic Disorders of lipid metabolism (3 sources) Hyperlipidemia, unspecified; Translations: [Mixed hyperlipidemia] Onset: 08-10-2021 04-25-2024 Chronic Fluid and electrolyte disorders (8 sources) Hypo-osmolality and hyponatremia; Translations: [Lactic acidosis] Onset: 08-10-2021 07-10-2022 Episodic Comment on above: Problem List clean-u p per request of Phys. EHR Cmte Mood disorders (5 sources) Depressive disorder; Translations: [Depression] 07-18-2022 Chronic Comment on above: Problem List clean-u p per request of Phys. EHR [facility] Nutritional deficiencies (5 sources) Iron deficiency; Translations: [Iron deficiency] 07-13-2022 Episodic Comment on above: Problem List clean-u p per request of Phys. EHR [facility] Other aftercare (6 sources) Drug therapy finding; Translations: [Long-term (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 of anticoagulants] Episodic Other aftercare (4 sources) Long-term current use of anticoagulant; Translations: [nursing home (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 of anticoagulants] Onset: 03-25-2023 05-04-2023 Episodic Other aftercare (4 sources) Taking high risk medication; Translations: [Other custodial (current) drug therapy] Onset: 03-25-2023 03-25-2023 Episodic Other aftercare (2 sources) Other antiquer (current) drug therapy; Translations: [Other custodial (current) drug therapy] Onset: 03-25-2023 Episodic Other circulatory disease (6 sources) Low blood pressure; Translations: [Hypotension, unspecified] 07-10-2022 Episodic Comment on above: Problem List clean-u p per request of Phys. EHR Cmte Other circulatory disease (1 source) Hypotension, unspecified; Translations: [Hypotension, unspecified] 07-10-2022 Episodic Other circulatory disease (4 sources) History of sick sinus syndrome; Translations: [Personal history of other diseases of circulatory system] Episodic Other circulatory disease (5 sources) H/O: atrial fibrillation; Translations: [Personal history of other diseases of the circulatory system] 07-12-2022 Episodic Other diseases of kidney and ureters (6 sources) Renal impairment; Translations: [Disorder of kidney and ureter, unspecified] 07-10-2022 Episodic Comment on above: Problem List clean-u p per request of Phys. EHR Cmte Other diseases of kidney and ureters (1 source) Disorder of kidney and ureter, unspecified; Translations: [Unspecified disorder of kidney and ureter] 07-10-2022 Episodic Other diseases of veins and lymphatics (1 source) Other specified noninfective disorders of lymphatic vessels and lymph nodes; Translations: [OTH SPEC NONINFECT D/O LYM VES NODE] Onset: 08-10-2021 Chronic Other disorders of stomach and duodenum (5 sources) Upset stomach; Translations: [Functional dyspepsia] 07-19-2022 Episodic Comment on above: Problem List clean-u p per request of Phys. EHR Cmte Other hematologic conditions (6 sources) Raised cardiac enzyme or marker; Translations: [Other specified abnormalities of plasma proteins] 07-10-2022 Episodic Comment on above: Problem List clean-u p per request of Phys. EHR Cmte Other hematologic conditions (1 source) Other specified abnormalities of plasma proteins; Translations: [Other abnormal blood chemistry] 07-10-2022 Episodic Other liver diseases (5 sources) Elevated liver enzymes level; Translations: [Abnormal levels of other serum enzymes] 07-11-2022 Episodic Comment on above: Problem List clean-u p per request of Phys. EHR Cmte Other liver diseases (5 sources) Ischemic hepatitis; Translations: [Acute and subacute hepatic failure without coma] 07-11-2022 Episodic Comment on above: Problem List clean-u p per request of Phys. EHR Cmte Other lower respiratory disease (5 sources) Solitary pulmonary nodule; Translations: [SOLITARY PULMONARY NODULE] Onset: 08-10-2021 Episodic Other lower respiratory disease (6 sources) Hypoxemia; Translations: [Hypoxemia] 07-10-2022 Episodic Comment on above: Problem List clean-u p per request of Phys. EHR Cmte Other lower respiratory disease (1 source) Hypoxemia; Translations: [Hypoxemia] 07-10-2022 Episodic Other nutritional; endocrine; and metabolic disorders (1 source) Hypocalcemia; Translations: [HYPOCALCEMIA] Onset: 08-10-2021 Chronic Other nutritional; endocrine; and metabolic disorders (1 source) Hypomagnesemia; Translations: [HYPOMAGNESEMIA] Onset: 08-10-2021 Chronic Other nutritional; endocrine; and metabolic disorders (4 sources) Overweight in adulthood with body mass index of 25 or more but less than 30; Translations: [Body mass index (BMI) 25.0-25.9, adult] Onset: 05-04-2023 05-04-2023 Episodic Other nutritional; endocrine; and metabolic disorders (2 sources) Body mass index (BMI) 27.0-27.9, adult; Translations: [Body mass index (BMI) 27.0-27.9, adult] Onset: 04-24-2024 Episodic Other screening for suspected conditions (not mental disorders or infectious disease) (3 sources) Echocardiogram abnormal; Translations: [Nonspecific (abnormal) findings on radiological and other examination of other intrathoracic organs] Episodic Peripheral and visceral atherosclerosis (8 sources) Peripheral vascular disease, unspecified; Translations: [Intermittent claudication] Onset: 08-10-2021 Chronic Pulmonary heart disease (1 source) Pulmonary hypertension, unspecified; Translations: [PULMONARY HYPERTENSION UNSPECIFIED] Onset: 08-10-2021 Chronic Residual codes; unclassified (4 sources) Body mass index 20-24 - normal; Translations: [Body Mass Index between 19-24, adult] Episodic Respiratory failure; insufficiency; arrest (adult) (8 sources) Acute and chronic respiratory failure with hypercapnia; Translations: [Acute and chronic respiratory failure with hypoxia] Onset: 08-10-2021 07-11-2022 Chronic Comment on above: Problem List clean-u p per request of Phys. EHR Cmte Substance-related disorders (3 sources) Nicotine dependence, cigarettes, uncomplicated; Translations: [Nicotine dependence, unspecified, uncomplicated] Onset: 08-10-2021 Chronic Unclassified (1 source) CONTACT W/AND (SUSP) EXPOS COVID-19; Translations: [CONTACT W/AND (SUSP) EXPOS COVID-19] Onset: 08-10-2021 Past or Other Problems Problem Classification Problem Date Documented Date Episodic/Chronic Deficiency and other anemia (1 source) Iron deficiency anemia, unspecified; Translations: [IRON DEFICIENCY ANEMIA UNSPECIFIED] Onset: 08-10-2021 Episodic Deficiency and other anemia (1 source) Folate deficiency anemia, unspecified; Translations: [FOLATE DEFICIENCY ANEMIA UNS] Onset: 08-10-2021 Episodic Fever of unknown origin (1 source) Fever, unspecified; Translations: [FEVER UNSPECIFIED] Onset: 08-10-2021 Episodic Other aftercare (1 source) price economist (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 of aspirin; Translations: [SCHOOL BASED THERAPIST CURRENT USE OF ASPIRIN] Onset: 08-10-2021 Episodic Other aftercare (1 source) price economist (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 of antithrombotics/antip latelets; Translations: [SCHOOL BASED THERAPIST ANTITHROMBOT/ANTIPLAT LETS] Onset: 08-10-2021 Episodic Other aftercare (2 sources) price economist (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 of anticoagulants; Translations: [nursing home (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 of anticoagulants] Onset: 03-25-2023 Episodic Other nutritional; endocrine; and metabolic disorders (2 sources) Body mass index (BMI) 25.0-25.9, adult; Translations: [Body mass index (BMI) 25.0-25.9, adult] Onset: 05-04-2023 Episodic Pneumonia (except that caused by tuberculosis or sexually transmitted disease) (1 source) Pneumonia, unspecified organism; Translations: [PNEUMONIA UNSPECIFIED ORGANISM] Onset: 08-10-2021 Episodic Residual codes; unclassified (1 source) Localized edema; Translations: [LOCALIZED EDEMA] Onset: 08-10-2021 Episodic Respiratory failure; insufficiency; arrest (adult) (1 source) Acute respiratory failure with hypoxia; Translations: [ACUTE RESPIRATORY FAIL W/HYPOXIA] Onset: 08-10-2021 Episodic Screening and history of mental health and substance abuse codes (8 sources) Ex-smoker; Translations: [Personal history of tobacco use] Onset: 05-04-2023 05-04-2023 Episodic Septicemia (except in labor) (1 source) Sepsis due to Methicillin susceptible Staphylococcus aureus; Translations: [SEPSIS D/T METHICILLIN UMM STAPH] Onset: 08-10-2021 Episodic Unclassified (2 sources) Onset: 05-04-2023 05-04-2023 Results Test Name Value Interpretation Reference Range Facility ECG 12 [place] 05-04-2023 Sinus tachycardia Right bundle branch block Left posterior fascicular block Cannot exclude old inferior infarct QTc 462 ms [facility] Work Phone: [facility] Work Phone: Office Visit (Cardiology)on 11-10-2022 Follow-up [...] the office if new symptoms arise. Dr. Claudio as scheduled Chief Complaint 2 month f/u: 'doing fine' JAIMEOTTO NEGHIP is being seen for a 2 week [...] repair History of Pacemaker insertion History of NUT STEAMER iliac artery History of Rectal surgery Current [...] Signs Recorded: 10Nov2022 12:43PM Heart Rate77, Apical Inobhsci144, RUE, Sitting Diasto (more content not included)... Normal [facility] Tobacco Screening.on 023 Adult depression screening assessment No [employer] DO Work Phone: Fall risk assessment a) No falls within the last year [employer] 250 DO Work Phone: Tobacco use status [facility] b) No M [employer] DO Work Phone: Office Visit (Cardiology)on 10-25-2022 [...] twice daily Basic Metabolic Panel; Status:Active; Requested for:25Oct2022; Start: Metoprolol Succinate ER 25 MG Oral Tablet Extended Release 24 Hour (Toprol XL); TAKE 1 TABLET DAILY Complete Blood Count; Status:Active; Requested for:[id number]; TSH WITH REFLEX TO FREE T4 IF ABNORMAL; Status:Active; Requested for:[id number]; Unlinked Stop: Clopidogrel Bisulfate 75 MG Oral [...] contact the office if new symptoms arise. TOBACCO STRIPPER HAND in 2 weeks Chief Complaint 3 month f/u: 'seem to be doing ok' JAIME LECHUGA is being seen for a 15 week follow-up of post pcm. Patient presents to the office ambulatory with steady gait. This is initial in clinic follow-up at [facility]. Patient reports remote history of iliac stenting in [place] and has been maintained on Plavix for 7 years, follows with vascular in [place]. Reports being hospitalized last year in [place] due to atrial fibrillation and started on Eliquis at that time, no antiarrhythmics. June 2022 presented to [facility] due to weakness, seen [...] labs approximately 1 month ago at the [facility]. He was seen outpatient by vascular and [...] with anticoagu (more content not included)... Normal [employer] Tobacco Screening.on 023 Adult depression screening assessment No [facility] [employer] DO Work Phone: Fall risk assessment a) No falls within the last year [facility] [employer] DO Work Phone: Tobacco use status [facility] b) No M [facility] [employer] DO Work Phone: Radiologyon 10-18-2022 XR Chest 2 Views Normal [facility] 250 DO Work Phone: Activated partial thrombopla stin time (aPTT) in platelet poor plasma by coagulation aOrdered By: Iris Holliday on 07-10-2022 aPTT Coag (PPP) [Time] 28.7 s 25.1-36.5 [facility] Alanine aminotransferase [En zymatic activity/volume] in Serum or PlasmaOrdered By: Iris Holliday on 07-10-2022 ALT [Catalytic activity/Vol] 615 U/L 7-52 [facility] Albumin [Mass/volume] in Ser um or Plasma by Bromocresol green (BCG) dye binding methoOrdered By: Iris Holliday on 07-10-2022 Albumin BCG dye [Mass/Vol] 3.3 g/dL 3.5-5.7 [facility] Alkaline phosphatase [Enzyma tic activity/volume] in Serum or PlasmaOrdered By: Iris Holliday on 07-10-2022 ALP [Catalytic activity/Vol] 235 U/L 34-104 [facility] Anisocytosis LM Ql (Bld)Orde red By: Iris Holliday on 07-10-2022 Anisocytosis Ql (Bld) Slight [facility] Aspartate aminotransferase [ Enzymatic activity/volume] in Serum or PlasmaOrdered By: Iris Holliday on 07-10-2022 AST [Catalytic activity/Vol] 789 U/L 13-39 [facility] Automated erythrocytes count in urine sediment (number/area)Ordered By: Iris Holliday on 07-10-2022 RBC Auto (Urine sed) [#/Area] 5-9 [HPF] 0-4 [facility] Automated leukocytes count i n urine sediment (number/area)Ordered By: Iris Holliday on 07-10-2022 WBC Auto (Urine sed) [#/Area] 5-9 [HPF] 0-4 [facility] Basophils Auto (Bld) [#/Vol] Ordered By: Iris Holliday on 07-10-2022 Basophils (Bld) [#/Vol] 0.1 10*3/uL 0.0-0.2 [facility] Basophils/100 WBC Auto (Bld) Ordered By: Iris Holliday on 07-10-2022 Basophils/100 WBC (Bld) 0.6 % . F [facility] Bilirubin Test strip Ql (U)O rdered By: Iris Holliday on 07-10-2022 Bilirubin Ql (U) 1+ Negative [facility] Bilirubin.total [Mass/volume ] in Serum or PlasmaOrdered By: Iris Holliday on 07-10-2022 Bilirubin [Mass/Vol] 1.3 mg/dL 0.3-1.0 [facility] Comment on above: Samples from patient s who have taken Naproxen have shown spurious elevation in Total Bilirubin levels. A metabolite of Naproxen, O-desmethylnaproxen, has been shown to interfere with the Nereida method for measuring Total Bilirubin. Calcium [Mass/volume] in Ser um or PlasmaOrdered By: Iris Holliday on 07-10-2022 Calcium [Mass/Vol] 7.1 mg/dL 8.6-10.3 [facility] Carbon dioxide, total [Moles /volume] in Serum or PlasmaOrdered By: Iris Holliday on 07-10-2022 CO2 [Moles/Vol] 26.6 mmol/L 21.0-31.0 [facility] Chloride [Moles/volume] in S aakash or PlasmaOrdered By: Iris Holliday on 07-10-2022 Chloride [Moles/Vol] 93 mmol/L 98-107 [facility] Color Auto (U)Ordered By: Cindy Holliday on 07-10-2022 Color (U) Dark yellow Yellow [facility] Creatine kinase [Enzymatic a ctivity/volume] in Serum or PlasmaOrdered By: Iris Holliday on 07-10-2022 CK [Catalytic activity/Vol] 53 U/L 30-223 [facility] Creatinine [Mass/volume] in Serum or PlasmaOrdered By: Iris Holliday on 07-10-2022 Creatinine [Mass/Vol] 2.17 mg/dL 0.70-1.30 [facility] Digoxin [Mass/volume] in Ser um or PlasmaOrdered By: Iris Holliday on 07-10-2022 Digoxin [Mass/Vol] 1.5 ng/mL 0.9-2.0 [facility] Comment on above: Last dose: - Eosinophils Auto (Bld) [#/Vo l]Ordered By: Iris Holliday on 07-10-2022 Eosinophils (Bld) [#/Vol] 0.0 10*3/uL 0.0-0.45 [facility] Eosinophils/100 WBC Auto (Bl d)Ordered By: Iris Holliday on 07-10-2022 Eosinophils/100 WBC (Bld) 0.0 % . [facility] Erythrocyte distribution wid th Auto (RBC) [Ratio]Ordered By: Iris Holliday on 07-10-2022 Erythrocyte distribution width (RBC) [Ratio] 18.0 % 12.0-14.8 [facility] Fecal occult blood detection by immunochemistryOrdered By: Iris Holliday on 07-10-2022 Hemoglobin.gastrointesti nal Ql (Stl) [facility] Globulin Calc (S) [Mass/Vol] Ordered By: Iris Holliday on 07-10-2022 Globulin (S) [Mass/Vol] 3.2 g/dL F [facility] Glucose [Mass/volume] in Ser um or PlasmaOrdered By: Iris Holliday on 07-10-2022 Glucose [Mass/Vol] 110 mg/dL 70-100 [facility] Comment on above: ADA recommended refe rence rangeRandom Glucose Reference Range is dependent on time and content of last meal. Glucose of more than 200 mg/dL in a nonstressed, ambulatory subject supports the diagnosis of Diabetes Mellitus. Hematocrit Auto (Bld) [Volum e fraction]Ordered By: Iris Holliday on 07-10-2022 Hematocrit (Bld) [Volume fraction] 26.7 % 38.8-50.0 [facility] Hemoglobin [Mass/volume] in BloodOrdered By: Iris Holliday on 07-10-2022 Hemoglobin (Bld) [Mass/Vol] 7.9 g/dL 13.0-17.0 [facility] Hypochromia LM Ql (Bld)Order ed By: Iris Holliday on 07-10-2022 Hypochromia Ql (Bld) Moderate [facility] Ketones Auto test strip (U) [Mass/Vol]Ordered By: Iris Holliday on 07-10-2022 Ketones (U) [Mass/Vol] Trace [facility] and C hemistry - challengeOrdered By: Iris Holliday on 07-10-2022 CO2 [Moles/Vol] 27.1 mmol/L 23.0-27.0 [facility] HCO3 (Bld) [Moles/Vol] 25.7 mmol/L 23.0-29.[address] [facility] Laboratory - CoagulationOrde red By: Iris Holliday on 07-10-2022 PT Coag (PPP) [Time] 48.8 s 9.0-12.9 [facility] Laboratory - UrinalysisOrder ed By: Iris Holliday on 07-10-2022 Hyaline casts LM Ql (Urine sed) 9-19 [LPF] 0-8 [facility] Lactate [Moles/volume] in Se rum or PlasmaOrdered By: Iris Lassiter on 07-10-2022 Lactate [Moles/Vol] 2.9 mmol/L 0.5-2.2 [facility] Comment on above: Critical Result : Ca lled to and read back by: HEBERT QUISPE at: 07/11/2022 00:43:09 by:[id number] Leukocytes [#/volume] correc milton for nucleated erythrocytes in Blood by Automated counOrdered By: Iris Holliday on 07-10-2022 WBC corrected for nucl RBC Auto (Bld) [#/Vol] 12.6 10*3/uL 4.1-10.5 [facility] Lymphocytes Auto (Bld) [#/Vo l]Ordered By: Iris Holliday on 07-10-2022 Lymphocytes (Bld) [#/Vol] 0.9 10*3/uL 1.00-4.8 [facility] Lymphocytes/100 WBC Auto (Bl d)Ordered By: Iris Holliday on 07-10-2022 Lymphocytes/100 WBC (Bld) 7.3 % . [facility] MCH Auto (RBC) [Entitic mass ]Ordered By: Iris Holliday on 07-10-2022 MCH (RBC) [Entitic mass] 23.6 pg 27.5-35.2 [facility] MCHC Auto (RBC) [Mass/Vol]Or dered By: Iris Holliday on 07-10-2022 MCHC (RBC) [Mass/Vol] 29.5 g/dL 32.5-35.6 [facility] MCV Auto (RBC) [Entitic vol] Ordered By: Iris Holliday on 07-10-2022 MCV (RBC) [Entitic vol] 80.0 fL 83.5-[address] [facility] Magnesium [Mass/volume] in S aakash or PlasmaOrdered By: Iris Holliday on 07-10-2022 Magnesium [Mass/Vol] 2.1 mg/dL 1.9-2.7 [facility] Microcytes LM Ql (Bld)Ordere d By: Iris Holliday on 07-10-2022 Microcytes Ql (Bld) Slight [facility] Monocyte distribution width [Entitic volume] in Blood by AutomatedOrdered By: Iris Holliday on 07-10-2022 Monocyte distribution width Auto (Bld) [Entitic vol] 17.34 % 0.00-20.00 [facility] Monocytes Auto (Bld) [#/Vol] Ordered By: Iris Holliday on 07-10-2022 Monocytes (Bld) [#/Vol] 1.3 10*3/uL 0.0-0.8 [facility] Monocytes/100 WBC Auto (Bld) Ordered By: Iris Holliday on 07-10-2022 Monocytes/100 WBC (Bld) 10.0 % . F [facility] Neutrophils Auto (Bld) [#/Vo l]Ordered By: Iris Holliday on 07-10-2022 Neutrophils (Bld) [#/Vol] 10.5 10*3/uL 1.8-7.7 [facility] Neutrophils/100 WBC Auto (Bl d)Ordered By: Iris Holliday on 07-10-2022 Neutrophils/100 WBC (Bld) 82.1 % . [facility] Nitrite Test strip Ql (U)Ord ered By: Iris Holliday on 07-10-2022 Nitrite Ql (U) Negative Negative [facility] No Panel InformationOrdered By: Iris Holliday on 07-10-2022 Arterial Blood Base Excess -0.2 mmol/L -3.0-3.0 [facility] Arterial Blood Oxygen Content 4.4 mmol/L 6.6-9.7 [facility] Arterial Blood Oxygen Saturation 82.7 % 95.0-100.0 [facility] Arterial Blood Partial Pressure CO2 48.0 mm[Hg] 35.0-45.0 [facility] Arterial Blood Partial Pressure O2 54.7 mm[Hg] 80.0-100.0 [facility] Arterial Blood pH 7.35 7.35-7.45 [facility] Blood Gas Critical Value See comment [facility] Comment on above: Critical Value stewart d on: 07/10/2022 at 20:40 Blood Gas Liter Flow 2 L/min [facility] Blood Gas Sample Site Left radial Fi [facility] FiO2 28 % [facility] Oxygen Delivery Device Nasal cannula [facility] D-Dimer Quantitative (PE/DVT) 1944 ng/mL 0-243 [facility] Comment on above: The reference range for [...] toco-morbid conditions. Estimated GFR (CKD-EPI) 32.762 mL/Min [facility] Creatinine Clearance (Chem 31.35 [facility] Nucleated erythrocytes [Pres ence] in Blood by Automated countOrdered By: Iris Holliday on 07-10-2022 Nucleated RBC Auto Ql (Bld) 1.7 /100{WBC} 0-0.5 [facility] Platelet adequacy [Presence] in Blood by Light microscopyOrdered By: Iris Holliday on 07-10-2022 Platelets LM Ql (Bld) Normal Normal [facility] Platelet mean volume Auto (B ld) [Entitic vol]Ordered By: Iris Holliday on 07-10-2022 Platelet mean volume (Bld) [Entitic vol] 9.9 fL 6.6-10.1 [facility] Platelet morphology finding [Identifier] in BloodOrdered By: Iris Holliday on 07-10-2022 Platelet morphology finding Nom (Bld) N/A [facility] Platelet poor plasma interna tional normalized ratio (INR) by coagulation assay (relatOrdered By: Iris Holliday on 07-10-2022 INR Coag (PPP) [Relative time] 4.3 {INR} [facility] Comment on above: INR Therapeutic Rang e [...] 07-10-2022 Platelets (Bld) [#/Vol] 180 10*3/uL 150-450 [facility] Platelets Large [Presence] i n Blood by Light microscopyOrdered By: Iris Holliday on 07-10-2022 Platelets Large LM Ql (Bld) Slight [facility] Polychromasia [Presence] in Blood by Light microscopyOrdered By: Iris Holliday on 07-10-2022 Polychromasia LM Ql (Bld) Moderate [facility] Potassium [Moles/volume] in Serum or PlasmaOrdered By: Iris Holliday on 07-10-2022 Potassium [Moles/Vol] 5.5 mmol/L 3.5-5.1 [facility] Protein Auto test strip (U) [Mass/Vol]Ordered By: Iris Holliday on 07-10-2022 Protein (U) [Mass/Vol] 100 mg/dL Negative [facility] Protein [Mass/volume] in Ser um or PlasmaOrdered By: Iris Holliday on 07-10-2022 Protein [Mass/Vol] 6.5 g/dL 6.4-8.9 [facility] RBC Auto (Bld) [#/Vol]Ordere d By: Iris Holliday on 07-10-2022 RBC (Bld) [#/Vol] 3.33 10*6/uL 3.90-5.60 [facility] RBC morphologyOrdered By: Cindy Holliday on 07-10-2022 RBC morphology finding Nom (Bld) N/A [facility] Serum or plasma albumin/glob ulin mass ratioOrdered By: Iris Holliday on 07-10-2022 Albumin/Globulin [Mass ratio] 1.0 {ratio} [facility] Serum or plasma anion gap de terminationOrdered By: Iris Holliday on 07-10-2022 Anion gap [Moles/Vol] 17.9 mmol/L 6.0-15.0 [facility] Sodium [Moles/volume] in Ser um or PlasmaOrdered By: Iris Holliday on 07-10-2022 Sodium [Moles/Vol] 132 mmol/L 136-145 [facility] Specific gravity Auto test s trip (U) [Rel density]Ordered By: Iris Holliday on 07-10-2022 Specific gravity (U) [Rel density] 1.020 1.001-1.03 0 [facility] Squamous epithelial cells de tection in urine sediment by light microscopyOrdered By: Iris Holliday on 07-10-2022 Epithelial cells.squamous LM Ql (Urine sed) 3-4 [HPF] 0-2 [facility] Thyrotropin [Units/volume] i n Serum or PlasmaOrdered By: Iris Holliday on 07-10-2022 TSH Qn 2.96 m[IU]/L 0.45-5.33 [facility] Troponin I.cardiac [Mass/vol ume] in Serum or Plasma by Detection limit <= 0.01 ng/Ordered By: Iris Holliday on 07-10-2022 Troponin I.cardiac DL <= 0.01 ng/mL [Mass/Vol] 48.3 pg/mL 0.0-20.0 [facility] Urea nitrogen [Mass/volume] in Serum or PlasmaOrdered By: Iris Holliday on 07-10-2022 Urea nitrogen [Mass/Vol] 59 mg/dL 7-25 [facility] Urine bacteria detection by automated methodOrdered By: Iris Holliday on 07-10-2022 Bacteria Auto Ql (U) None seen None Seen [facility] Urine clarity by refractomet ry automatedOrdered By: Iris Holliday on 07-10-2022 Clarity Refractometry automated (U) Cloudy Clear [facility] Urine glucose measurement by automated test strip (mass/volume)Ordered By: Iris Holliday on 07-10-2022 Glucose Auto test strip (U) [Mass/Vol] Normal mg/dL Normal [facility] Urine hemoglobin detection b y automated test stripOrdered By: Iris Holliday on 07-10-2022 Hemoglobin Auto test strip Ql (U) Negative Negative [facility] Urine leukocyte esterase det ection by automated test stripOrdered By: Iris Holliday on 07-10-2022 Leukocyte esterase Auto test strip Ql (U) 1+ Negative [facility] Urine sediment renal epithel ial cell count by microscopy (number/high power field)Ordered By: Iris Holliday on 07-10-2022 Epithelial cells.renal LM.HPF (Urine sed) [#/Area] 3-4 [HPF] 0-1 [facility] Urobilinogen Auto test strip (U) [Mass/Vol]Ordered By: Iris Holliday on 07-10-2022 Urobilinogen (U) [Mass/Vol] Normal mg/dL Normal [facility] WBC Auto (Bld) [#/Vol]Ordere d By: Iris Holliday on 07-10-2022 WBC (Bld) [#/Vol] 12.6 10*3/uL 4.1-10.5 [facility] pH Auto test strip (U)Ordere d By: Iris Holliday on 07-10-2022 pH (U) 5.0 [pH] 5.0-9.0 [facility] Follow-Upon 12-09-2021 Follow-Up [id number] [facility] 1955 M Date Provider Department Center 12/09/2021 EDISON THORNTON [facility] Family History Problem Relation Age of Onset Diabetes Brother Family Status - Relation Status Age at Brother Level of Service:87851 DE OFFICE/OUTPATIENT ESTABLISHED LOW MDM 20-29 MIN Reason for Visit and Comments: Congestive Heart Failure [127] Atrial Fibrillation [80] Peripheral Vascular Disease [458] Normal [facility] DIGOXINon 11-16-2021 DIG 0.5 ng/mL Critically low 0.9-2.0 [facility] Comment on above: Performed By: #### M G #### [facility] [address] [address] [address] Carole Carvalho PROF CHEM 8 (BAS METB)on Anion gap [Moles/Vol] 8.7 mmol/L Normal [facility] Comment on above: Performed By: #### B TOBACCO STRIPPER HAND #### [facility] [address] [place] [address] Dr. Carole Carvalho Calcium [Mass/Vol] 9.0 mg/dL Normal 8.5-10.1 [facility] Comment on above: Performed By: #### B TOBACCO STRIPPER HAND #### [facility] [address] [place] [address] Dr. Carole Carvalho Chloride [Moles/Vol] 103 mmol/L Normal 98-107 [facility] Comment on above: Performed By: #### B TOBACCO STRIPPER HAND #### [facility] [address] [place] [address] Dr. Carole Carvalho CO2 [Moles/Vol] 33.2 mmol/L Critically high 21.0-32.0 [facility] Comment on above: Performed By: #### B TOBACCO STRIPPER HAND #### [facility] [address] [place] [address] Dr. Carole Carvalho Creatinine [Mass/Vol] 0.90 mg/dL Normal 0.70-1.30 [facility] Comment on above: Performed By: #### B TOBACCO STRIPPER HAND #### [facility] [address] [place] [address] Dr. Carole Carvalho EGFR-AF AUSTRALIAN >60 Normal >=60 [facility] Comment on above: Performed By: #### B TOBACCO STRIPPER HAND #### [facility] [address] [place] [address] Dr. Carole Carvalho EGFR-NON AF AUSTRALIAN >60 Normal >=60 [facility] Comment on above: Performed By: #### B TOBACCO STRIPPER HAND #### [facility] [address] [place] [address] Dr. Carole Carvalho Glucose [Mass/Vol] 98 mg/dL Normal 74-106 [facility] Comment on above: Performed By: #### B TOBACCO STRIPPER HAND #### [facility] [address] [place] [address] Dr. Carole Carvalho Potassium [Moles/Vol] 3.9 mmol/L Normal 3.5-5.1 [facility] Comment on above: Performed By: #### B TOBACCO STRIPPER HAND #### [facility] [address] [place], [place] [address] Dr. Carole Carvalho Sodium [Moles/Vol] 141 mmol/L Normal 136-145 [facility] Comment on above: Performed By: #### B TOBACCO STRIPPER HAND #### [facility] [address] [place], [place] [address] Dr. Carole Carvalho Urea nitrogen [Mass/Vol] 12.0 mg/dL Normal 7.0-18.0 [facility] Comment on above: Performed By: #### B TOBACCO STRIPPER HAND #### [facility] [address] [place], [place] [address] Dr. Carole Carvalho Urea nitrogen/Creatinine [Mass ratio] 13.3 mg/mg Normal [facility] Comment on above: Performed By: #### B TOBACCO STRIPPER HAND #### [facility] [address] [place], [place] [address] CHEST WO CONon [...] mass, effusion, or pneumothorax. VASCULATURE: No abnormality. MILVIA: Calcified lymph nodes. MEDIASTINUM: Stable, slightly prominent [...] by: KATE BUSH Date: 2021-11-05 10:18 Normal [facility] CBC AUTO DIFFon 05-30-2022 BASO # 0.0 103/ul Normal 0.0-0.1 [facility] Comment on above: Performed By: #### M G, BMP #### [facility] [address] [place] [address] Dr. Carole Carvalho Basophils/100 WBC (Bld) 0.3 % Normal 0.2-2.0 [facility] Comment on above: Performed By: #### M G, BMP #### [facility] [address] [place] [address] Dr. Carole Carvalho EO # 0.0 103/ul Normal 0.0-0.7 [facility] Comment on above: Performed By: #### M G, BMP #### [facility] [address] [place] [address] Dr. Carole Carvalho Eosinophils/100 WBC (Bld) 0.0 % Critically low 0.9-7.0 [facility] Comment on above: Performed By: #### M G, BMP #### [facility] [address] [place] [address] Dr. Carole Carvalho Erythrocyte distribution width (RBC) [Ratio] 15.3 % Critically high 11.0-15.0 [facility] Comment on above: Performed By: #### M G, BMP #### [facility] [address] [place] [address] Dr. Carole Carvalho Hematocrit (Bld) [Volume fraction] 32.1 % Critically low 42.0-54.0 [facility] Comment on above: Performed By: #### M G, BMP #### [facility] [address] [place] [address] Dr. Carole Carvalho Hemoglobin (Bld) [Mass/Vol] 9.8 g/dL Critically low 14.0-18.0 [facility] Comment on above: Performed By: #### M G, BMP #### [facility] [address] [place] [address] Dr. Carole Carvalho IG # 0.12 10e3/ul Critically high 0.00-0.03 [facility] Comment on above: Performed By: #### M G, BMP #### [facility] [address] [place] [address] Dr. Carole Carvalho IG % 1.1 % Critically high 0.0-0.5 [facility] Comment on above: Performed By: #### M G, BMP #### [facility] [address] [address] [address] Carole Carvalho LYMPH # 2.0 103/ul Normal 1.2-3.8 [facility] Comment on above: Performed By: #### M G, BMP #### [facility] [address] [address] [address] Carole Carvalho Lymphocytes/100 WBC (Bld) 18.6 % Critically low 20.5-60.0 [facility] Comment on above: Performed By: #### M G, BMP #### [facility] [address] [place] [address] Dr. Carole Carvalho MANUAL DIFF REQ NO Normal [facility] Comment on above: Performed By: #### M G, BMP #### [facility] [address] [place] [address] Dr. Carole Carvalho MCH (RBC) [Entitic mass] 29.7 pg Normal 25.9-34.0 [facility] Comment on above: Performed By: #### M G, BMP #### [facility] [address] [place] [address] Dr. Carole Carvalho MCHC (RBC) [Mass/Vol] 30.5 g/dL Normal 29.9-35.2 [facility] Comment on above: Performed By: #### M G, BMP #### [facility] [address] [place] [address] Dr. Carole Carvalho MCV (RBC) [Entitic vol] 97.3 fL Critically high 80.0-94 .0 [facility] Comment on above: Performed By: #### M G, BMP #### [facility] [address] [place] [address] Dr. Carole Carvalho MONO # 1.2 103/ul Critically high 0.3-0.8 [facility] Comment on above: Performed By: #### M G, BMP #### [facility] [address] [place] [address] Dr. Carole Carvalho Monocytes/100 WBC (Bld) 10.9 % Normal 1.7-12.0 [facility] Comment on above: Performed By: #### M G, BMP #### [facility] [address] [place] [address] Dr. Carole Carvalho NEUT # 7.3 103/ul Critically high 1.4-6.5 [facility] Comment on above: Performed By: #### M G, BMP #### [facility] [address] [place] [address] Dr. Carole Carvalho Neutrophils/100 WBC (Bld) 69.1 % Normal 43.0-75.0 [facility] Comment on above: Performed By: #### M G, BMP #### [facility] [address] [place] [address] Dr. Carole Carvalho Platelet mean volume (Bld) [Entitic vol] 10.7 fL Normal 9.5-13.5 [facility] Comment on above: Performed By: #### M G, BMP #### [facility] [address] [place] [address] Dr. Carole Carvalho PLT 282 103/ul Normal 150-450 [facility] Comment on above: Performed By: #### M G, BMP #### [facility] [address] [place] [address] Dr. Carole Carvalho RBC 3.30 106/ul Critically low 4.70-6.10 [facility] Comment on above: Performed By: #### M G, BMP #### [facility] [address] [place] [address] Dr. Carole Carvalho WBC 10.5 103/ul Normal 4.0-11.0 [facility] Comment on above: Performed By: #### M G, BMP #### [facility] [address] [place] [address] Dr. Carole Carvalho DIGOXINon 07-27-2021 DIG 0.4 ng/mL Critically low 0.9-2.0 [facility] Comment on above: Performed By: #### D IG #### [facility] [address] [place] [address] Dr. Carole Carvalho MAGNESIUMon 07-27-2021 Magnesium [Mass/Vol] 2.0 mg/dL Normal 1.8-2.4 [facility] Comment on above: Performed By: #### M G #### [facility] [address] [place] [address] Dr. Carole Carvalho PROF CHEM 8 (BAS METB)on Anion gap [Moles/Vol] 10.0 mmol/L Normal [facility] Comment on above: Performed By: #### M G #### [facility] [address] [place] [address] Dr. Carole Carvalho Calcium [Mass/Vol] 7.8 mg/dL Critically low 8.5-10.1 [facility] Comment on above: Performed By: #### M G #### [facility] [address] [place] [address] Dr. Carole Carvalho Chloride [Moles/Vol] 101 mmol/L Normal 98-107 [facility] Comment on above: Performed By: #### M G #### [facility] [address] [place] [address] Dr. Carole Carvalho CO2 [Moles/Vol] 30.7 mmol/L Normal 21.0-32.0 [facility] Comment on above: Performed By: #### M G #### [facility] [address] [place] [address] Dr. Carole Carvalho Creatinine [Mass/Vol] 0.98 mg/dL Normal 0.70-1.30 [facility] Comment on above: Performed By: #### M G #### [facility] [address] [place] [address] Dr. Carole Carvalho EGFR-AF AUSTRALIAN >60 Normal >=60 [facility] Comment on above: Performed By: #### M G #### [facility] [address] [place] [address] Dr. Carole Carvalho EGFR-NON AF AUSTRALIAN >60 Normal >=60 [facility] Comment on above: Performed By: #### M G #### [facility] [address] [address] [address] Carole Carvalho Glucose [Mass/Vol] 96 mg/dL Normal 74-106 [facility] Comment on above: Performed By: #### M G #### [facility] [address] [address] [address] Carole Carvalho Potassium [Moles/Vol] 3.7 mmol/L Normal 3.5-5.1 [facility] Comment on above: Performed By: #### M G #### [facility] [address] [address] [address] Carole Carvalho Sodium [Moles/Vol] 138 mmol/L Normal 136-145 [facility] Comment on above: Performed By: #### M G #### [facility] [address] [place] [address] Dr. Carole Carvalho Urea nitrogen [Mass/Vol] 16.0 mg/dL Normal 7.0-18.0 [facility] Comment on above: Performed By: #### M G #### [facility] [address] [place] [address] Dr. Carole Carvalho Urea nitrogen/Creatinine [Mass ratio] 16.3 mg/mg Normal [facility] Comment on above: Performed By: #### M G #### [facility] [address] [place] [address] Dr. Carole Carvalho CBC AUTO DIFFon 07-26-2021 BASO # 0.0 103/ul Normal 0.0-0.1 [facility] Comment on above: Performed By: #### M G, BMP #### [facility] [address] [address] [address] Carole Carvalho Basophils/100 WBC (Bld) 0.4 % Normal 0.2-2.0 [facility] Comment on above: Performed By: #### M G, BMP #### [facility] [address] [address] [address] Carole Carvalho EO # 0.0 103/ul Normal 0.0-0.7 [facility] Comment on above: Performed By: #### M G, BMP #### [facility] [address] [place] [address] Dr. Carole Carvalho Eosinophils/100 WBC (Bld) 0.1 % Critically low 0.9-7.0 [facility] Comment on above: Performed By: #### M G, BMP #### [facility] [address] [place] [address] Dr. Carole Carvalho Erythrocyte distribution width (RBC) [Ratio] 15.1 % Critically high 11.0-15.0 [facility] Comment on above: Performed By: #### M G, BMP #### [facility] [address] [place] [address] Dr. Carole Carvalho Hematocrit (Bld) [Volume fraction] 33.5 % Critically low 42.0-54.0 [facility] Comment on above: Performed By: #### M G, BMP #### [facility] [address] [place] [address] Dr. Carole Carvalho Hemoglobin (Bld) [Mass/Vol] 10.3 g/dL Critically low 14.0-18.0 [facility] Comment on above: Performed By: #### M G, BMP #### [facility] [address] [place] [address] Dr. Carole Carvalho IG # 0.06 10e3/ul Critically high 0.00-0.03 [facility] Comment on above: Performed By: #### M G, BMP #### [facility] [address] [place] [address] Dr. Carole Carvalho IG % 0.5 % Normal 0.0-0.5 [facility] Comment on above: Performed By: #### M G, BMP #### [facility] [address] [place] [address] Dr. Carole Carvalho LYMPH # 2.2 103/ul Normal 1.2-3.8 [facility] Comment on above: Performed By: #### M G, BMP #### [facility] [address] [place] [address] Dr. Carole Carvalho Lymphocytes/100 WBC (Bld) 20.1 % Critically low 20.5-60.0 [facility] Comment on above: Performed By: #### M G, BMP #### [facility] [address] [place] [address] Dr. Carole Carvalho MANUAL DIFF REQ NO Normal [facility] Comment on above: Performed By: #### M G, BMP #### [facility] [address] [place] [address] Dr. Carole Carvalho MCH (RBC) [Entitic mass] 29.9 pg Normal 25.9-34.0 [facility] Comment on above: Performed By: #### M G, BMP #### [facility] [address] [place] [address] Dr. Carole Carvalho MCHC (RBC) [Mass/Vol] 30.7 g/dL Normal 29.9-35.2 [facility] Comment on above: Performed By: #### M G, BMP #### [facility] [address] [place] [address] Dr. Carole Carvalho MCV (RBC) [Entitic vol] 97.4 fL Critically high 80.0-94 .0 [facility] Comment on above: Performed By: #### M G, BMP #### [facility] [address] [place] [address] Dr. Carole Carvalho MONO # 1.1 103/ul Critically high 0.3-0.8 [facility] Comment on above: Performed By: #### M G, BMP #### [facility] [address] [place] [address] Dr. Carole Carvalho Monocytes/100 WBC (Bld) 10.0 % Normal 1.7-12.0 [facility] Comment on above: Performed By: #### M G, BMP #### [facility] [address] [place] [address] Dr. Carole Carvalho NEUT # 7.6 103/ul Critically high 1.4-6.5 [facility] Comment on above: Performed By: #### M G, BMP #### [facility] [address] [place] [address] Dr. Carole Carvalho Neutrophils/100 WBC (Bld) 68.9 % Normal 43.0-75.0 [facility] Comment on above: Performed By: #### Holly Gómez, BMP #### [facility] [address] [place] [address] Dr. Carole Carvalho Platelet mean volume (Bld) [Entitic vol] 11.2 fL Normal 9.5-13.5 [facility] Comment on above: Performed By: #### Holly Gómez, BMP #### [facility] [address] [place] [address] Dr. Carole Carvalho PLT 212 103/ul Normal 150-450 [facility] Comment on above: Performed By: #### Holly Gómez, BMP #### [facility] [address] [place] [address] Dr. Carole Carvalho RBC 3.44 106/ul Critically low 4.70-6.10 [facility] Comment on above: Performed By: #### Holly Gómez, BMP #### [facility] [address] [place] [address] Dr. Carole Carvalho WBC 11.1 103/ul Critically high 4.0-11.0 [facility] Comment on above: Performed By: #### Holly Gómez, BMP #### [facility] [address] [place] [address] Dr. Carole Carvalho MAGNESIUMon 07-26-2021 Magnesium [Mass/Vol] 2.1 mg/dL Normal 1.8-2.4 [facility] Comment on above: Performed By: #### Holly Gómez, BMP #### [facility] [address] [place] [address] Dr. Carole Carvalho PROF CHEM 8 (BAS METB)on Anion gap [Moles/Vol] 7.5 mmol/L Normal [facility] Comment on above: Performed By: #### Holly G, BMP #### [facility] [address] [place] [address] Dr. Carole Carvalho Calcium [Mass/Vol] 8.7 mg/dL Normal 8.5-10.1 [facility] Comment on above: Performed By: #### Holly Gómez, BMP #### [facility] [address] [address] [address] Carole Carvalho Chloride [Moles/Vol] 99 mmol/L Normal 98-107 [facility] Comment on above: Performed By: #### M G, BMP #### [facility] [address] [address] [address] Carole Carvalho CO2 [Moles/Vol] 33.2 mmol/L Critically high 21.0-32.0 [facility] Comment on above: Performed By: #### M G, BMP #### [facility] [address] [address] [address] Carole Carvalho Creatinine [Mass/Vol] 0.91 mg/dL Normal 0.70-1.30 [facility] Comment on above: Performed By: #### Holly G, BMP #### [facility] [address] [place] [address] Dr. Carole Carvalho EGFR-AF AUSTRALIAN >60 Normal >=60 [facility] Comment on above: Performed By: #### Holly G, BMP #### [facility] [address] [place] [address] Dr. Carole Carvalho EGFR-NON AF AUSTRALIAN >60 Normal >=60 [facility] Comment on above: Performed By: #### Holly G, BMP #### [facility] [address] [place] [address] Dr. Carole Carvalho Glucose [Mass/Vol] 105 mg/dL Normal 74-106 [facility] Comment on above: Performed By: #### Holly G, BMP #### [facility] [address] [place] [address] Dr. Carole Carvalho Potassium [Moles/Vol] 3.7 mmol/L Normal 3.5-5.1 [facility] Comment on above: Performed By: #### M G, BMP #### [facility] [address] [place] [address] Dr. Carole Carvalho Sodium [Moles/Vol] 136 mmol/L Normal 136-145 [facility] Comment on above: Performed By: #### M G, BMP #### [facility] [address] [place] [address] Dr. Carole Carvalho Urea nitrogen [Mass/Vol] 21.0 mg/dL Critically high 7.0-18 .0 [facility] Comment on above: Performed By: #### M G, BMP #### [facility] [address] [place] [address] Dr. Carole Carvalho Urea nitrogen/Creatinine [Mass ratio] 23.1 mg/mg Normal [facility] Comment on above: Performed By: #### M G, BMP #### [facility] [address] [place] [address] Dr. Carole Carvalho CBC AUTO DIFFon 07-25-2021 BASO # 0.0 103/ul Normal 0.0-0.1 [facility] Comment on above: Performed By: #### M G, BMP #### [facility] [address] [place] [address] Dr. Carole Carvalho Basophils/100 WBC (Bld) 0.3 % Normal 0.2-2.0 [facility] Comment on above: Performed By: #### M G, BMP #### [facility] [address] [place] [address] Dr. Carole Carvalho EO # 0.0 103/ul Normal 0.0-0.7 [facility] Comment on above: Performed By: #### M G, BMP #### [facility] [address] [place] [address] Dr. Carole Carvalho Eosinophils/100 WBC (Bld) 0.0 % Critically low 0.9-7.0 [facility] Comment on above: Performed By: #### M G, BMP #### [facility] [address] [place] [address] Dr. Carole Carvalho Erythrocyte distribution width (RBC) [Ratio] 14.8 % Normal 11.0-15.0 [facility] Comment on above: Performed By: #### M G, BMP #### [facility] [address] [place] [address] Dr. Carole Carvalho Hematocrit (Bld) [Volume fraction] 33.3 % Critically low 42.0-54.0 [facility] Comment on above: Performed By: #### M G, BMP #### [facility] [address] [address] [address] Carole Carvalho Hemoglobin (Bld) [Mass/Vol] 10.2 g/dL Critically low 14.0-18.0 [facility] Comment on above: Performed By: #### M G, BMP #### [facility] [address] [address] [address] Carole Carvalho IG # 0.05 10e3/ul Critically high 0.00-0.03 [facility] Comment on above: Performed By: #### M G, BMP #### [facility] [address] [place] [address] Dr. Carole Carvalho IG % 0.5 % Normal 0.0-0.5 [facility] Comment on above: Performed By: #### M G, BMP #### [facility] [address] [place] [address] Dr. Carole Carvalho LYMPH # 1.7 103/ul Normal 1.2-3.8 [facility] Comment on above: Performed By: #### M G, BMP #### [facility] [address] [place] [address] Dr. Carole Carvalho Lymphocytes/100 WBC (Bld) 17.0 % Critically low 20.5-60.0 [facility] Comment on above: Performed By: #### M G, BMP #### [facility] [address] [place] [address] Dr. Carole Carvalho MANUAL DIFF REQ NO Normal [facility] Comment on above: Performed By: #### M G, BMP #### [facility] [address] [place] [address] Dr. Carole Carvalho MCH (RBC) [Entitic mass] 30.1 pg Normal 25.9-34.0 [facility] Comment on above: Performed By: #### M G, BMP #### [facility] [address] [place] [address] Dr. Carole Carvalho MCHC (RBC) [Mass/Vol] 30.6 g/dL Normal 29.9-35.2 [facility] Comment on above: Performed By: #### M G, BMP #### [facility] [address] [place] [address] Dr. Carole Carvalho MCV (RBC) [Entitic vol] 98.2 fL Critically high 80.0-94 .0 [facility] Comment on above: Performed By: #### M G, BMP #### [facility] [address] [place] [address] Dr. Carole Carvalho MONO # 1.2 103/ul Critically high 0.3-0.8 [facility] Comment on above: Performed By: #### M G, BMP #### [facility] [address] [place] [address] Dr. Carole Carvalho Monocytes/100 WBC (Bld) 11.6 % Normal 1.7-12.0 [facility] Comment on above: Performed By: #### M G, BMP #### [facility] [address] [place] [address] Dr. Carole Carvalho NEUT # 7.0 103/ul Critically high 1.4-6.5 [facility] Comment on above: Performed By: #### M G, BMP #### [facility] [address] [place] [address] Dr. Carole Carvalho Neutrophils/100 WBC (Bld) 70.6 % Normal 43.0-75.0 [facility] Comment on above: Performed By: #### M G, BMP #### [facility] [address] [place] [address] Dr. Carole Carvalho Platelet mean volume (Bld) [Entitic vol] 11.8 fL Normal 9.5-13.5 [facility] Comment on above: Performed By: #### M G, BMP #### [facility] [address] [place] [address] Dr. Carole Carvalho PLT 168 103/ul Normal 150-450 [facility] Comment on above: Performed By: #### M G, BMP #### [facility] [address] [place] [address] Dr. Carole Carvalho RBC 3.39 106/ul Critically low 4.70-6.10 [facility] Comment on above: Performed By: #### M G, BMP #### [facility] [address] [place] [address] Dr. Carole Carvalho WBC 9.9 103/ul Normal 4.0-11.0 [facility] Comment on above: Performed By: #### M G, BMP #### [facility] [address] [place] [address] Dr. Carole Carvalho MAGNESIUMon 07-25-2021 Magnesium [Mass/Vol] 1.9 mg/dL Normal 1.8-2.4 [facility] Comment on above: Performed By: #### Holly Gómez, BMP #### [facility] [address] [place] [address] Dr. Carole Carvalho PROF CHEM 8 (BAS METB)on Anion gap [Moles/Vol] 6.5 mmol/L Normal [facility] Comment on above: Performed By: #### Holly Gómez, BMP #### [facility] [address] [place] [address] Dr. Carole Carvalho Calcium [Mass/Vol] 8.8 mg/dL Normal 8.5-10.1 [facility] Comment on above: Performed By: #### Holly Gómez, BMP #### [facility] [address] [place] [address] Dr. Carole Carvalho Chloride [Moles/Vol] 99 mmol/L Normal 98-107 [facility] Comment on above: Performed By: #### Holly Gómez, BMP #### [facility] [address] [place] [address] Dr. Carole Carvalho CO2 [Moles/Vol] 33.5 mmol/L Critically high 21.0-32.0 [facility] Comment on above: Performed By: #### Holly G, BMP #### [facility] [address] [place] [address] Dr. Carole Carvalho Creatinine [Mass/Vol] 0.89 mg/dL Normal 0.70-1.30 [facility] Comment on above: Performed By: #### Holly Gómez, BMP #### [facility] [address] [place] [address] Dr. Carole Carvalho EGFR-AF AUSTRALIAN >60 Normal >=60 [facility] Comment on above: Performed By: #### Holly G, BMP #### [facility] [address] [place] [address] Dr. Carole Carvalho EGFR-NON AF AUSTRALIAN >60 Normal >=60 [facility] Comment on above: Performed By: #### M G, BMP #### [facility] [address] [place] [address] Dr. Carole Carvalho Glucose [Mass/Vol] 88 mg/dL Normal 74-106 [facility] Comment on above: Performed By: #### Holly G, BMP #### [facility] [address] [place] [address] Dr. Carole Carvalho Potassium [Moles/Vol] 4.0 mmol/L Normal 3.5-5.1 [facility] Comment on above: Performed By: #### Holly Gómez, BMP #### [facility] [address] [place] [address] Dr. Carole Carvalho Sodium [Moles/Vol] 135 mmol/L Critically low 136-145 [facility] Comment on above: Performed By: #### Holly Gómez, BMP #### [facility] [address] [place] [address] Dr. Carole Carvalho Urea nitrogen [Mass/Vol] 18.0 mg/dL Normal 7.0-18.0 [facility] Comment on above: Performed By: #### Holly Gómez, BMP #### [facility] [address] [place] [address] Dr. Carole Carvalho Urea nitrogen/Creatinine [Mass ratio] 20.2 mg/mg Normal [facility] Comment on above: Performed By: #### Holly Gómez, BMP #### [facility] [address] [place] [address] Dr. Carole Carvalho BLOOD CULTURE ID/SENSon 05- Aerobe ID + Suscept Final report Abnormal [facility] Comment on above: Performed By: #### Holly G #### [facility] [address] [place] [address] Dr. Carole Carvalho Performed By: #### M G, BMP #### [facility] [address] [place] [address] Dr. Carole Carvalho Performed By: #### B TOBACCO STRIPPER HAND #### [facility] [address] [place] [address] Dr. Carole Carvalho Antimicrobial Susceptibility Comment Normal [facility] Comment on above: Result Comment: S = Susceptible; I = Intermediate; R = Resistant P = Positive; N = Negative MICS are expressed in micrograms per mL Antibiotic RSLT#1 RSLT#2 RSLT#3 RSLT#4 Ciprofloxacin R Gentamicin S Levofloxacin I Linezolid S Moxifloxacin R Oxacillin S Penicillin R Quinupristin/Dalfopristin S Rifampin S Tetracycline S Trimethoprim/Sulfa S Vancomycin S Performed By: #### M G #### [facility] [address] [place] [address] Dr. Carole Carvalho Result Comment: S = Susceptible; I = Intermediate; R = Resistant P = Positive; N = Negative MICS are expressed in micrograms per mL Antibiotic RSLT#1 RSLT#2 RSLT#3 RSLT#4 Ciprofloxacin R Gentamicin S Levofloxacin I Linezolid S Moxifloxacin I Oxacillin S Penicillin R Quinupristin/Dalfopristin S Rifampin S Tetracycline S Trimethoprim/Sulfa S Vancomycin S Performed By: #### M G, BMP #### [facility] [address] [place] [address] Dr. Carole Carvalho Performed By: #### B TOBACCO STRIPPER HAND #### [facility] [address] [place] [address] Dr. Carole Carvalho Result 1 Staphylococcus aureus Abnormal [facility] Comment on above: Result Comment: Maxwell robert [...] Meropenem Performed By: #### M G #### [facility] [address] [place] [address] Dr. Carole Carvalho Result Comment: Maxwell robert [...] Performed By: #### M G, BMP #### [facility] [address] [place] [address] Dr. Carole Carvalho Performed By: #### B TOBACCO STRIPPER HAND #### [facility] [address] [place] [address] Dr. Carole Carvalho CBC AUTO DIFFon 07-24-2021 BASO # 0.0 103/ul Normal 0.0-0.1 [facility] Comment on above: Performed By: #### M G #### [facility] [address] [place] [address] Dr. Carole Carvalho Basophils/100 WBC (Bld) 0.2 % Normal 0.2-2.0 [facility] Comment on above: Performed By: #### M G #### [facility] [address] [place] [address] Dr. Carole Carvalho EO # 0.0 103/ul Normal 0.0-0.7 [facility] Comment on above: Performed By: #### M G #### [facility] [address] [place] [address] Dr. Carole Carvalho Eosinophils/100 WBC (Bld) 0.0 % Critically low 0.9-7.0 [facility] Comment on above: Performed By: #### M G #### [facility] Laboratory [address] [place] [address] Dr. Carole Carvalho Erythrocyte distribution width (RBC) [Ratio] 14.6 % Normal 11.0-15.0 [facility] Comment on above: Performed By: #### M G #### [facility] [address] [place] [address] Dr. Carole Carvalho Hematocrit (Bld) [Volume fraction] 34.2 % Critically low 42.0-54.0 [facility] Comment on above: Performed By: #### M G #### [facility] [address] [place] [address] Dr. Carole Carvalho Hemoglobin (Bld) [Mass/Vol] 10.3 g/dL Critically low 14.0-18.0 [facility] Comment on above: Performed By: #### M G #### [facility] [address] [place] [address] Dr. Carole Carvalho IG # 0.04 10e3/ul Critically high 0.00-0.03 [facility] Comment on above: Performed By: #### M G #### [facility] [address] [place] [address] Dr. Carole Carvalho IG % 0.5 % Normal 0.0-0.5 [facility] Comment on above: Performed By: #### M G #### [facility] [address] [place] [address] Dr. Carole Carvalho LYMPH # 1.6 103/ul Normal 1.2-3.8 [facility] Comment on above: Performed By: #### M G #### [facility] [address] [place] [address] Dr. Carole Carvalho Lymphocytes/100 WBC (Bld) 18.1 % Critically low 20.5-60.0 [facility] Comment on above: Performed By: #### M G #### [facility] [address] [place] [address] Dr. Carole Carvalho MANUAL DIFF REQ NO Normal [facility] Comment on above: Performed By: #### M G #### [facility] [address] [place] [address] Dr. Carole Carvalho MCH (RBC) [Entitic mass] 29.8 pg Normal 25.9-34.0 [facility] Comment on above: Performed By: #### M G #### [facility] [address] [place] [address] Dr. Carole Carvalho MCHC (RBC) [Mass/Vol] 30.1 g/dL Normal 29.9-35.2 [facility] Comment on above: Performed By: #### M G #### [facility] [address] [place] [address] Dr. Carole Carvalho MCV (RBC) [Entitic vol] 98.8 fL Critically high 80.0-94 .0 [facility] Comment on above: Performed By: #### M G #### [facility] [address] [place] [address] Dr. Carole Carvalho MONO # 1.1 103/ul Critically high 0.3-0.8 [facility] Comment on above: Performed By: #### M G #### [facility] [address] [place] [address] Dr. Carole Carvalho Monocytes/100 WBC (Bld) 12.6 % Critically high 1.7-12. 0 [facility] Comment on above: Performed By: #### M G #### [facility] [address] [place] [address] Dr. Carole Carvalho NEUT # 5.9 103/ul Normal 1.4-6.5 [facility] Comment on above: Performed By: #### M G #### [facility] [address] [place] [address] Dr. Carole Carvalho Neutrophils/100 WBC (Bld) 68.6 % Normal 43.0-75.0 [facility] Comment on above: Performed By: #### M G #### [facility] [address] [address] [address] Carole Carvalho Platelet mean volume (Bld) [Entitic vol] 11.7 fL Normal 9.5-13.5 [facility] Comment on above: Performed By: #### M G #### [facility] [address] [address] [address] Carole Carvalho PLT 142 103/ul Critically low 150-450 [facility] Comment on above: Performed By: #### M G #### [facility] [address] [address] [address] Carole Carvalho RBC 3.46 106/ul Critically low 4.70-6.10 [facility] Comment on above: Performed By: #### M G #### [facility] [address] [place] [address] Dr. Carole Carvalho WBC 8.6 103/ul Normal 4.0-11.0 [facility] Comment on above: Performed By: #### M G #### [facility] [address] [place] [address] Dr. Carole Carvalho MAGNESIUMon 07-24-2021 Magnesium [Mass/Vol] 1.9 mg/dL Normal 1.8-2.4 [facility] Comment on above: Performed By: #### B TOBACCO STRIPPER HAND #### [facility] [address] [place] [address] Dr. Carole Carvalho OCC BLD IMMUNO SCREENon 06-29 OCCULT BLOOD Positive Abnormal NEGATIVE [facility] Comment on above: Performed By: #### C VDTBH #### [facility] [address] [place] [address] Dr. Carole Carvalho PROF CHEM 8 (BAS METB)on Anion gap [Moles/Vol] 4.7 mmol/L Normal [facility] Comment on above: Performed By: #### B TOBACCO STRIPPER HAND #### [facility] [address] [place] [address] Dr. Carole Carvalho Calcium [Mass/Vol] 8.2 mg/dL Critically low 8.5-10.1 [facility] Comment on above: Performed By: #### B TOBACCO STRIPPER HAND #### [facility] [address] [address] [address] Carole Carvalho Chloride [Moles/Vol] 96 mmol/L Critically low 98-107 [facility] Comment on above: Performed By: #### B TOBACCO STRIPPER HAND #### [facility] [address] [address] [address] Carole Carvalho CO2 [Moles/Vol] 36.1 mmol/L Critically high 21.0-32.0 [facility] Comment on above: Performed By: #### B TOBACCO STRIPPER HAND #### [facility] [address] [address] [address] Carole Carvalho Creatinine [Mass/Vol] 0.59 mg/dL Critically low 0.70-1.30 [facility] Comment on above: Performed By: #### B TOBACCO STRIPPER HAND #### [facility] [address] [place] [address] Dr. Carole Carvalho EGFR-AF AUSTRALIAN >60 Normal >=60 [facility] Comment on above: Performed By: #### B TOBACCO STRIPPER HAND #### [facility] [address] [place] [address] Dr. Carole Carvalho EGFR-NON AF AUSTRALIAN >60 Normal >=60 [facility] Comment on above: Performed By: #### B TOBACCO STRIPPER HAND #### [facility] [address] [place] [address] Dr. Carole Carvalho Glucose [Mass/Vol] 104 mg/dL Normal 74-106 [facility] Comment on above: Performed By: #### B TOBACCO STRIPPER HAND #### [facility] [address] [place] [address] Dr. Carole Carvalho Potassium [Moles/Vol] 3.8 mmol/L Normal 3.5-5.1 [facility] Comment on above: Performed By: #### B TOBACCO STRIPPER HAND #### [facility] [address] [place] [address] Dr. Carole Carvalho Sodium [Moles/Vol] 133 mmol/L Critically low 136-145 [facility] Comment on above: Performed By: #### B TOBACCO STRIPPER HAND #### [facility] [address] [place] [address] Dr. Carole Carvalho Urea nitrogen [Mass/Vol] 10.0 mg/dL Normal 7.0-18.0 [facility] Comment on above: Performed By: #### B TOBACCO STRIPPER HAND #### [facility] [address] [place] [address] Dr. Carole Carvalho Urea nitrogen/Creatinine [Mass ratio] 16.9 mg/mg Normal [facility] Comment on above: Performed By: #### B TOBACCO STRIPPER HAND #### [facility] [address] [place] [address] Dr. Carole Carvalho CBC AUTO DIFFon 07-23-2021 BASO # 0.0 103/ul Normal 0.0-0.1 [facility] Comment on above: Performed By: #### M G, BMP #### [facility] [address] [place] [address] Dr. Carole Carvalho Basophils/100 WBC (Bld) 0.3 % Normal 0.2-2.0 [facility] Comment on above: Performed By: #### M G, BMP #### [facility] [address] [place] [address] Dr. Carole Carvalho EO # 0.0 103/ul Normal 0.0-0.7 [facility] Comment on above: Performed By: #### M G, BMP #### [facility] [address] [place] [address] Dr. Carole Carvalho Eosinophils/100 WBC (Bld) 0.0 % Critically low 0.9-7.0 [facility] Comment on above: Performed By: #### M G, BMP #### [facility] [address] [place] [address] Dr. Carole Carvalho Erythrocyte distribution width (RBC) [Ratio] 14.6 % Normal 11.0-15.0 [facility] Comment on above: Performed By: #### M G, BMP #### [facility] [address] [place] [address] Dr. Carole Carvalho Hematocrit (Bld) [Volume fraction] 33.8 % Critically low 42.0-54.0 [facility] Comment on above: Performed By: #### M G, BMP #### [facility] [address] [address] [address] Carole Carvalho Hemoglobin (Bld) [Mass/Vol] 10.2 g/dL Critically low 14.0-18.0 [facility] Comment on above: Performed By: #### M G, BMP #### [facility] [address] [address] [address] Carole Carvalho IG # 0.03 10e3/ul Normal 0.00-0.03 [facility] Comment on above: Performed By: #### M G, BMP #### [facility] [address] [place] [address] Dr. Carole Carvalho IG % 0.4 % Normal 0.0-0.5 [facility] Comment on above: Performed By: #### M G, BMP #### [facility] [address] [place] [address] Dr. Carole Carvalho LYMPH # 1.0 103/ul Critically low 1.2-3.8 [facility] Comment on above: Performed By: #### M G, BMP #### [facility] [address] [place] [address] Dr. Carole Carvalho Lymphocytes/100 WBC (Bld) 14.1 % Critically low 20.5-60.0 [facility] Comment on above: Performed By: #### M G, BMP #### [facility] [address] [place] [address] Dr. Carole Carvalho MANUAL DIFF REQ NO Normal [facility] Comment on above: Performed By: #### M G, BMP #### [facility] [address] [place] [address] Dr. Carole Carvalho MCH (RBC) [Entitic mass] 30.3 pg Normal 25.9-34.0 [facility] Comment on above: Performed By: #### M G, BMP #### [facility] [address] [place] [address] Dr. Carole Carvalho MCHC (RBC) [Mass/Vol] 30.2 g/dL Normal 29.9-35.2 [facility] Comment on above: Performed By: #### M G, BMP #### [facility] [address] [place] [address] Dr. Carole Carvalho MCV (RBC) [Entitic vol] 100.3 fL Critically high 80.0-94 .0 [facility] Comment on above: Performed By: #### M G, BMP #### [facility] [address] [place] [address] Dr. Carole Carvalho MONO # 1.0 103/ul Critically high 0.3-0.8 [facility] Comment on above: Performed By: #### M G, BMP #### [facility] [address] [place] [address] Dr. Carole Carvalho Monocytes/100 WBC (Bld) 13.2 % Critically high 1.7-12. 0 [facility] Comment on above: Performed By: #### M G, BMP #### [facility] [address] [place] [address] Dr. Carole Carvalho NEUT # 5.3 103/ul Normal 1.4-6.5 [facility] Comment on above: Performed By: #### M G, BMP #### [facility] [address] [place] [address] Dr. Carole Carvalho Neutrophils/100 WBC (Bld) 72.0 % Normal 43.0-75.0 [facility] Comment on above: Performed By: #### M G, BMP #### [facility] [address] [place] [address] Dr. Carole Carvalho Platelet mean volume (Bld) [Entitic vol] 12.2 fL Normal 9.5-13.5 [facility] Comment on above: Performed By: #### M G, BMP #### [facility] [address] [place] [address] Dr. Carole Carvalho PLT 120 103/ul Critically low 150-450 [facility] Comment on above: Performed By: #### M G, BMP #### [facility] [address] [place] [address] Dr. Carole Carvalho RBC 3.37 106/ul Critically low 4.70-6.10 [facility] Comment on above: Performed By: #### M G, BMP #### [facility] [address] [place], [place] [address] Dr. Carole Carvalho WBC 7.3 103/ul Normal 4.0-11.0 [facility] Comment on above: Performed By: #### M G, BMP #### [facility] [address] [place], [place] [address] CHEST WO CONon [...] pleural effusions. No pneumothorax VASCULATURE: No abnormality. MILVIA: Calcified hilar lymph nodes MEDIASTINUM: Scattered lymph [...] by: ANNA EUGENE Date: 2021-07-23 08:38 Normal [facility] CTA CHEST WO W CONon 2 022 CTA CHEST WO W CON EXAMINATION: [...] bases. PLEURA: Stable large bilateral pleural effusions. MILVIA: Calcified lymph nodes. MEDIASTINUM: Slightly prominent pretracheal [...] by: KATE BUSH Date: 2021-07-23 11:56 Normal [facility] MAGNESIUMon 07-23-2021 Magnesium [Mass/Vol] 2.1 mg/dL Normal 1.8-2.4 [facility] Comment on above: Performed By: #### C BC #### [facility] [address] [address] [address] Carole Carvalho PROF CHEM 8 (BAS METB)on Anion gap [Moles/Vol] 3.3 mmol/L Normal [facility] Comment on above: Performed By: #### C BC #### [facility] [address] [address] [address] Carole Carvalho Calcium [Mass/Vol] 8.3 mg/dL Critically low 8.5-10.1 [facility] Comment on above: Performed By: #### C BC #### [facility] [address] [address] [address] Carole Carvalho Chloride [Moles/Vol] 95 mmol/L Critically low 98-107 [facility] Comment on above: Performed By: #### C BC #### [facility] [address] [address] [address] Carole Carvalho CO2 [Moles/Vol] 38.7 mmol/L Critically high 21.0-32.0 [facility] Comment on above: Performed By: #### C BC #### [facility] [address] [address] [address] Carole Carvalho Creatinine [Mass/Vol] 0.63 mg/dL Critically low 0.70-1.30 [facility] Comment on above: Performed By: #### C BC #### [facility] [address] [place] [address] Dr. Carole Carvalho EGFR-AF AUSTRALIAN >60 Normal >=60 [facility] Comment on above: Performed By: #### C BC #### [facility] [address] [place] [address] Dr. Carole Carvalho EGFR-NON AF AUSTRALIAN >60 Normal >=60 [facility] Comment on above: Performed By: #### C BC #### [facility] [address] [place] [address] Dr. Carole Carvalho Glucose [Mass/Vol] 95 mg/dL Normal 74-106 [facility] Comment on above: Performed By: #### C BC #### [facility] [address] [place] [address] Dr. Carole Carvalho Potassium [Moles/Vol] 4.0 mmol/L Normal 3.5-5.1 [facility] Comment on above: Performed By: #### C BC #### [facility] [address] [place] [address] Dr. Carole Carvalho Sodium [Moles/Vol] 133 mmol/L Critically low 136-145 [facility] Comment on above: Performed By: #### C BC #### [facility] [address] [place] [address] Dr. Carole Carvalho Urea nitrogen [Mass/Vol] 15.0 mg/dL Normal 7.0-18.0 [facility] Comment on above: Performed By: #### C BC #### [facility] [address] [place] [address] Dr. Carole Carvalho Urea nitrogen/Creatinine [Mass ratio] 23.8 mg/mg Normal [facility] Comment on above: Performed By: #### C BC #### [facility] [address] [place] [address] Dr. aCrole Carvalho XR CHEST 1 Von 07-23-2021 XR [...] ANA MARIA SAID Date: 2021-07-23 05:23 Normal [facility] CBC AUTO DIFFon 07-22-2021 BASO # 0.0 103/ul Normal 0.0-0.1 [facility] Comment on above: Performed By: #### L ACT #### [facility] [address] [place] [address] Dr. Carole Carvalho Basophils/100 WBC (Bld) 0.3 % Normal 0.2-2.0 [facility] Comment on above: Performed By: #### L ACT #### [facility] [address] [place] [address] Dr. Carole Carvalho EO # 0.0 103/ul Normal 0.0-0.7 [facility] Comment on above: Performed By: #### L ACT #### [facility] [address] [place] [address] Dr. Carole Carvalho Eosinophils/100 WBC (Bld) 0.0 % Critically low 0.9-7.0 [facility] Comment on above: Performed By: #### L ACT #### [facility] [address] [place] [address] Dr. Carole Carvalho Erythrocyte distribution width (RBC) [Ratio] 14.6 % Normal 11.0-15.0 [facility] Comment on above: Performed By: #### L ACT #### [facility] [address] [place] [address] Dr. Carole Carvalho Hematocrit (Bld) [Volume fraction] 34.6 % Critically low 42.0-54.0 [facility] Comment on above: Performed By: #### L ACT #### [facility] [address] [place] [address] Dr. Carole Carvalho Hemoglobin (Bld) [Mass/Vol] 10.6 g/dL Critically low 14.0-18.0 [facility] Comment on above: Performed By: #### L ACT #### [facility] [address] [place] [address] Dr. Carole Carvalho IG # 0.02 10e3/ul Normal 0.00-0.03 [facility] Comment on above: Performed By: #### L ACT #### [facility] [address] [place] [address] Dr. Carole Carvalho IG % 0.3 % Normal 0.0-0.5 [facility] Comment on above: Performed By: #### L ACT #### [facility] [address] [place] [address] Dr. Carole Carvalho LYMPH # 0.6 103/ul Critically low 1.2-3.8 [facility] Comment on above: Performed By: #### L ACT #### [facility] [address] [place] [address] Dr. Carole Carvalho Lymphocytes/100 WBC (Bld) 8.4 % Critically low 20.5-60.0 [facility] Comment on above: Result Comment: dif. not rqd. same as 07/21 Performed By: #### L ACT #### [facility] [address] [place] [address] Dr. Carole Carvalho MANUAL DIFF REQ NO Normal [facility] Comment on above: Performed By: #### L ACT #### [facility] [address] [place] [address] Dr. Carole Carvalho MCH (RBC) [Entitic mass] 30.6 pg Normal 25.9-34.0 [facility] Comment on above: Performed By: #### L ACT #### [facility] [address] [place] [address] Dr. Carole Cavralho MCHC (RBC) [Mass/Vol] 30.6 g/dL Normal 29.9-35.2 [facility] Comment on above: Performed By: #### L ACT #### [facility] [address] [place] [address] Dr. Carole Carvalho MCV (RBC) [Entitic vol] 100.0 fL Critically high 80.0-94 .0 [facility] Comment on above: Performed By: #### L ACT #### [facility] [address] [place] [address] Dr. Carole Carvalho MONO # 0.8 103/ul Normal 0.3-0.8 [facility] Comment on above: Performed By: #### L ACT #### [facility] [address] [place] [address] Dr. Carole Carvalho Monocytes/100 WBC (Bld) 11.5 % Normal 1.7-12.0 [facility] Comment on above: Performed By: #### L ACT #### [facility] [address] [place] [address] Dr. Carole Carvalho NEUT # 5.2 103/ul Normal 1.4-6.5 [facility] Comment on above: Performed By: #### L ACT #### [facility] [address] [place] [address] Dr. Carole Carvalho Neutrophils/100 WBC (Bld) 79.5 % Critically high 43.0-75.0 [facility] Comment on above: Performed By: #### L ACT #### [facility] [address] [place] [address] Dr. Carole Carvalho Platelet mean volume (Bld) [Entitic vol] 11.9 fL Normal 9.5-13.5 [facility] Comment on above: Performed By: #### L ACT #### [facility] [address] [place] [address] Dr. Carole Carvalho PLT 115 103/ul Critically low 150-450 [facility] Comment on above: Performed By: #### L ACT #### [facility] [address] [place] [address] Dr. Carole Carvalho RBC 3.46 106/ul Critically low 4.70-6.10 [facility] Comment on above: Performed By: #### L ACT #### [facility] [address] [place] [address] Dr. Carole Carvalho WBC 6.5 103/ul Normal 4.0-11.0 [facility] Comment on above: Performed By: #### L ACT #### [facility] [address] [place] [address] Dr. Carole Carvalho MAGNESIUMon 07-22-2021 Magnesium [Mass/Vol] 2.0 mg/dL Normal 1.8-2.4 [facility] Comment on above: Performed By: #### M G #### [facility] [address] [place] [address] Dr. Carole Carvalho PROF CHEM 8 (BAS METB)on Anion gap [Moles/Vol] 6.2 mmol/L Normal [facility] Comment on above: Performed By: #### M G #### [facility] [address] [place] [address] Dr. Carole Carvalho Calcium [Mass/Vol] 8.4 mg/dL Critically low 8.5-10.1 Th e [facility] Comment on above: Performed By: #### M G #### [facility] [address] [place] [address] Dr. Carole Carvalho Chloride [Moles/Vol] 94 mmol/L Critically low 98-107 [facility] Comment on above: Performed By: #### M G #### [facility] [address] [place] [address] Dr. Carole Carvalho CO2 [Moles/Vol] 39.0 mmol/L Critically high 21.0-32.0 [facility] Comment on above: Performed By: #### M G #### [facility] [address] [address] [address] Carole Carvalho Creatinine [Mass/Vol] 0.72 mg/dL Normal 0.70-1.30 [facility] Comment on above: Performed By: #### M G #### [facility] [address] [address] [address] Carole Carvalho EGFR-AF AUSTRALIAN >60 Normal >=60 [facility] Comment on above: Performed By: #### M G #### [facility] [address] [place] [address] Dr. Carole Carvalho EGFR-NON AF AUSTRALIAN >60 Normal >=60 [facility] Comment on above: Performed By: #### M G #### [facility] [address] [place] [address] Dr. Carole Carvalho Glucose [Mass/Vol] 97 mg/dL Normal 74-106 [facility] Comment on above: Performed By: #### M G #### [facility] [address] [address] [address] Carole Carvalho Potassium [Moles/Vol] 4.2 mmol/L Normal 3.5-5.1 [facility] Comment on above: Performed By: #### M G #### [facility] [address] [place] [address] Dr. Carole Carvalho Sodium [Moles/Vol] 135 mmol/L Critically low 136-145 [facility] Comment on above: Performed By: #### M G #### [facility] [address] [address] [address] Carole Carvalho Urea nitrogen [Mass/Vol] 16.0 mg/dL Normal 7.0-18.0 [facility] Comment on above: Performed By: #### M G #### [facility] [address] [place] [address] Dr. Carole Carvalho Urea nitrogen/Creatinine [Mass ratio] 22.2 mg/mg Normal [facility] Comment on above: Performed By: #### M G #### [facility] [address] [address] [address] Carole Carvalho BLOOD CULTURE ID PANELon A. baumannii Not detected [facility] Comment on above: Performed By: #### L ACT #### [facility] [address] [address] [address] Carole DREWD CONTROLS PASSED Normal [facility] Comment on above: Performed By: #### L ACT #### [facility] [address] [address] [address] Carole DREWDBTHD BLOOD CULTURE BOTTLE INFORMATION [facility] Comment on above: Performed By: #### L ACT #### [facility] [address] [address] [address] Carole Carvalho BCIDHD1 ANTIMICROBIAL RESIST ANCE GENES [facility] Comment on above: Performed By: #### L ACT #### [facility] [address] [address] [address] Carole DREWDHD2 SEE BELOW [facility] Comment on above: Result Comment: KPC- carbapenem resistance gene, mecA- methecillin resistance gene, van A/B- vancomycin resistance gene Note: Antimicrobial resitance can occur via multiple mechanisms. A Not Detected result for the [employer] antomicrobial resistance gene assays does not indicate antimicrobial susceptibility. Subculturing is required for specis identificationand susceptibility testing of isolates. Performed By: #### L ACT #### [facility] [address] [address] [address] Carole Carvalho BCIDHD3 Positive [facility] Comment on above: Performed By: #### L ACT #### [facility] [address] [address] [address] Carole DREWDHD4 Negative [facility] Comment on above: Performed By: #### L ACT #### [facility] [address] [address] [address] Carole Carvalho BCIDHD5 YEAST Normal [facility] Comment on above: Performed By: #### L ACT #### [facility] [address] [place] [address] Dr. Carole Carvalho BCIDHD6 SEE BELOW Normal [facility] Comment on above: Result Comment: Note : All genus and species BCID [employer] results will be verified post subculturing via Maldi-Tof MS testing methodology. Performed By: #### L ACT #### [facility] [address] [place] [address] Dr. Carole Carvalho Bottle Set: Set 1 Normal [facility] Comment on above: Performed By: #### L ACT #### [facility] [address] [place] [address] Dr. Carole Carvalho Bottle: Anaerobic Normal [facility] Comment on above: Performed By: #### L ACT #### [facility] [address] [place] [address] Dr. Carole Carvalho Claudia albicans Not detected Normal [facility] Comment on above: Performed By: #### L ACT #### [facility] [address] [place] [address] Dr. Carole Carvalho Claudia glabrata Not detected Normal [facility] Comment on above: Performed By: #### L ACT #### [facility] [address] [place] [address] Dr. Carole Carvalho Claudia Krusei Not detected Normal [facility] Comment on above: Performed By: #### L ACT #### [facility] [address] [place] [address] Dr. Carole Carvalho Claudia Parapsilosis Not detected Normal [facility] Comment on above: Performed By: #### L ACT #### [facility] [address] [place] [address] Dr. Carole Carvalho Claudia Tropicalis Not detected Normal [facility] Comment on above: Performed By: #### L ACT #### [facility] [address] [place] [address] Dr. Carole Carvalho E. Cloacae complex Not detected Normal [facility] Comment on above: Performed By: #### L ACT #### [facility] [address] [place] [address] Dr. Carole Carvalho Enterobacteriaceae Not detected Normal [facility] Comment on above: Performed By: #### L ACT #### [facility] [address] [place] [address] Dr. Carole Carvalho Enterococcus Not detected Normal [facility] Comment on above: Performed By: #### L ACT #### [facility] [address] [address] [address] Carole Carvalho Escheria coli Not detected Normal [facility] Comment on above: Performed By: #### L ACT #### [facility] [address] [place] [address] Dr. Carole Carvalho K. oxytoca Not detected Normal [facility] Comment on above: Performed By: #### L ACT #### [facility] [address] [place] [address] Dr. Carole Carvalho K. pneumoniae Not detected Normal [facility] Comment on above: Performed By: #### L ACT #### [facility] [address] [place] [address] Dr. Carole Carvalho KPC Resistant Gene Not Applicable Normal [facility] Comment on above: Performed By: #### L ACT #### [facility] [address] [place] [address] Dr. Carole Carvalho List. monocytogenes Not detected Normal [facility] Comment on above: Performed By: #### L ACT #### [facility] [address] [place] [address] Dr. Carole Carvalho mecA Resistant Gene Not Applicable Normal [facility] Comment on above: Performed By: #### L ACT #### [facility] [address] [place] [address] Dr. Carole Carvalho Proteus Not detected Normal [facility] Comment on above: Performed By: #### L ACT #### [facility] [address] [place] [address] Dr. Carole Carvalho Pseud. aeruginosa Not detected Normal [facility] Comment on above: Performed By: #### L ACT #### [facility] [address] [place] [address] Dr. Carole Carvalho Seratia marcescens Not detected Normal [facility] Comment on above: Performed By: #### L ACT #### [facility] [address] [place] [address] Dr. Carole Carvalho Site: lt. hand Normal [facility] Comment on above: Performed By: #### L ACT #### [facility] [address] [place] [address] Dr. Carole Carvalho Staph. aureus Detected Critically abnormal [facility] Comment on above: Performed By: #### L ACT #### [facility] [address] [place] [address] Dr. Carole Carvalho Staphylococcus Detected Critically abnormal [facility] Comment on above: Performed By: #### L ACT #### [facility] [address] [place] [address] Dr. Carole Carvalho Strep. agalactiae Not detected Normal [facility] Comment on above: Performed By: #### L ACT #### [facility] [address] [place] [address] Dr. Carole Carvalho Strep. pneumoniae Not detected Normal [facility] Comment on above: Performed By: #### L ACT #### [facility] [address] [place] [address] Dr. Carole Carvalho Strep. pyogenes Not detected Normal [facility] Comment on above: Performed By: #### L ACT #### [facility] [address] [place] [address] Dr. Carole Carvalho Streptococcus Not detected Normal [facility] Comment on above: Performed By: #### L ACT #### [facility] [address] [place] [address] Dr. Carole Carvalho Meka/B Resist. Gene Not Applicable Normal [facility] Comment on above: Performed By: #### L ACT #### [facility] [address] [place] [address] Dr. Carole Carvalho CBC W MANUAL DIFFon 07-22-19 22 ANISOCYTOSIS 1+ Normal [facility] Comment on above: Performed By: #### M G, BMP #### [facility] [address] [place] [address] Dr. Carole Carvalho ATYPICAL LYMPH # Normal [facility] Comment on above: Performed By: #### M G, BMP #### [facility] [address] [place] [address] Dr. Carole Carvalho ATYPICAL LYMPH % Normal [facility] Comment on above: Performed By: #### M G, BMP #### [facility] [address] [place] [address] Dr. Carole Carvalho BAND # 0.1 103/ul Normal 0.0-0.3 [facility] Comment on above: Performed By: #### M G, BMP #### [facility] [address] [place] [address] Dr. Carole Carvalho BAND % 1 % Normal 0-5 [facility] Comment on above: Performed By: #### M G, BMP #### [facility] [address] [place] [address] Dr. Carole Carvalho BASOM # 0.00 103/ul Normal 0.00-0.10 [facility] Comment on above: Performed By: #### M G, BMP #### [facility] [address] [place] [address] Dr. Carole Carvalho BASOM % 0.0 % Critically low 0.2-2.0 [facility] Comment on above: Performed By: #### M G, BMP #### [facility] [address] [place] [address] Dr. Carole Carvalho BLAST # Normal [facility] Comment on above: Performed By: #### M G, BMP #### [facility] [address] [place] [address] Dr. Carole Carvalho BLAST % Normal [facility] Comment on above: Performed By: #### M G, BMP #### [facility] [address] [place] [address] Dr. Carole Carvalho CORRECTED WBC Normal 4.0-11.0 [facility] Comment on above: Performed By: #### M G, BMP #### [facility] [address] [place] [address] Dr. Carole Carvalho EOS # 0.00 103/ul Normal 0.00-0.70 [facility] Comment on above: Performed By: #### M G, BMP #### [facility] [address] [address] [address] Carole Carvalho EOS% 0.0 % Critically low 0.9-7.0 [facility] Comment on above: Performed By: #### M G, BMP #### [facility] [address] [address] [address] Carole Carvalho HCT 36.0 % Critically low 42.0-54.0 [facility] Comment on above: Performed By: #### M G, BMP #### [facility] [address] [address] [address] Carole Carvalho HGB 11.2 g/dl Critically low 14.0-18.0 [facility] Comment on above: Performed By: #### M G, BMP #### [facility] [address] [address] [address] Carole Carvalho LYMPHM # 0.43 103/ul Critically low 1.20-3.80 [facility] Comment on above: Performed By: #### M G, BMP #### [facility] [address] [address] [address] Carole Carvalho LYMPHM% 4.0 % Critically low 20.5-60.0 [facility] Comment on above: Performed By: #### M G, BMP #### [facility] [address] [address] [address] Carole Carvalho MCH 30.7 pg Normal 25.9-34.0 [facility] Comment on above: Performed By: #### M G, BMP #### [facility] [address] [address] [address] Carole Carvalho MCHC 31.1 g/dl Normal 29.9-35.2 [facility] Comment on above: Performed By: #### M G, BMP #### [facility] [address] [address] [address] Carole Carvalho MCV 98.6 fL Critically high 80.0-94.0 [facility] Comment on above: Performed By: #### M G, BMP #### [facility] [address] [place] [address] Dr. Carole Carvalho METAMYELOCYTE # Normal [facility] Comment on above: Performed By: #### M G, BMP #### [facility] [address] [place] [address] Dr. Carole Carvalho METAMYELOCYTE % Normal [facility] Comment on above: Performed By: #### M G, BMP #### [facility] [address] [place] [address] Dr. Carole Carvalho MONOM# 0.96 103/ul Critically high 0.30-0.80 [facility] Comment on above: Performed By: #### M G, BMP #### [facility] [address] [place] [address] Dr. Carole Carvalho MONOM% 9.0 % Normal 1.7-12.0 [facility] Comment on above: Performed By: #### M G, BMP #### [facility] [address] [place] [address] Dr. Carole Carvalho MPV 11.6 fL Normal 9.5-13.5 [facility] Comment on above: Performed By: #### M G, BMP #### [facility] [address] [place] [address] Dr. Carole Carvalho MYELOCYTE # Normal [facility] Comment on above: Performed By: #### M G, BMP #### [facility] [address] [place] [address] Dr. Carole Carvalho MYELOCYTE % Normal [facility] Comment on above: Performed By: #### M G, BMP #### [facility] [address] [place] [address] Dr. Carole Carvalho NRBC Normal [facility] Comment on above: Performed By: #### M G, BMP #### [facility] [address] [place] [address] Dr. Carole Carvalho PLT 113 103/ul Critically low 150-450 [facility] Comment on above: Performed By: #### M G, BMP #### [facility] [address] [place] [address] Dr. Carole Carvalho RBC 3.65 106/ul Critically low 4.70-6.10 [facility] Comment on above: Performed By: #### M G, BMP #### [facility] [address] [place] [address] Dr. Carole Carvalho RDW 14.6 % Normal 11.0-15.0 [facility] Comment on above: Performed By: #### M G, BMP #### [facility] [address] [place] [address] Dr. Carole Carvalho SEG # 9.20 103/ul Critically high 1.40-6.50 [facility] Comment on above: Performed By: #### M G, BMP #### [facility] [address] [place] [address] Dr. Carole Carvalho SEG % 86.0 % Critically high 43.0-75.0 [facility] Comment on above: Performed By: #### Holly G, BMP #### [facility] [address] [place] [address] Dr. Carole Carvalho WBC 10.7 103/ul Normal 4.0-11.0 [facility] Comment on above: Performed By: #### Holly G, BMP #### [facility] [address] [place] [address] Dr. Carole Carvlaho MAGNESIUMon 07-21-2021 Magnesium [Mass/Vol] 2.0 mg/dL Normal 1.8-2.4 [facility] Comment on above: Performed By: #### B TOBACCO STRIPPER HAND #### [facility] [address] [place] [address] Dr. Carole Carvalho PROF CHEM 8 (BAS METB)on Anion gap [Moles/Vol] 1.9 mmol/L Normal [facility] Comment on above: Performed By: #### C VDTBH #### [facility] [address] [place] [address] Dr. Carole Carvalho Calcium [Mass/Vol] 8.7 mg/dL Normal 8.5-10.1 [facility] Comment on above: Performed By: #### C VDTBH #### [facility] [address] [address] [address] Carole Carvalho Chloride [Moles/Vol] 91 mmol/L Critically low 98-107 [facility] Comment on above: Performed By: #### C VDTBH #### [facility] [address] [place] [address] Dr. Carole Carvalho CO2 [Moles/Vol] 41.4 mmol/L Critically high 21.0-32.0 [facility] Comment on above: Performed By: #### C VDTBH #### [facility] [address] [place] [address] Dr. Carole Carvalho Creatinine [Mass/Vol] 0.90 mg/dL Normal 0.70-1.30 [facility] Comment on above: Performed By: #### C VDTBH #### [facility] [address] [place] [address] Dr. Carole Carvalho EGFR-AF AUSTRALIAN >60 Normal >=60 [facility] Comment on above: Performed By: #### C VDTBH #### [facility] [address] [place] [address] Dr. Carole Carvalho EGFR-NON AF AUSTRALIAN >60 Normal >=60 [facility] Comment on above: Performed By: #### C VDTBH #### [facility] [address] [place] [address] Dr. Carole Carvalho Glucose [Mass/Vol] 115 mg/dL Critically high 74-106 [facility] Comment on above: Performed By: #### C VDTBH #### [facility] [address] [place] [address] Dr. Carole Carvalho Potassium [Moles/Vol] 4.3 mmol/L Normal 3.5-5.1 [facility] Comment on above: Performed By: #### C VDTBH #### [facility] [address] [place] [address] Dr. Carole Carvalho Sodium [Moles/Vol] 130 mmol/L Critically low 136-145 [facility] Comment on above: Performed By: #### C VDTBH #### [facility] [address] [place] [address] Dr. Carole Carvalho Urea nitrogen [Mass/Vol] 14.0 mg/dL Normal 7.0-18.0 [facility] Comment on above: Performed By: #### C VDTBH #### [facility] [address] [place] [address] Dr. Carole Carvalho Urea nitrogen/Creatinine [Mass ratio] 15.6 mg/mg Normal [facility] Comment on above: Performed By: #### C VDTBH #### [facility] [address] [place] [address] Dr. Carole Carvalho CBC AUTO DIFFon 07-20-2021 BASO # 0.0 103/ul Normal 0.0-0.1 [facility] Comment on above: Performed By: #### B TOBACCO STRIPPER HAND #### [facility] [address] [place] [address] Dr. Carole Carvalho Basophils/100 WBC (Bld) 0.3 % Normal 0.2-2.0 [facility] Comment on above: Performed By: #### B TOBACCO STRIPPER HAND #### [facility] [address] [place] [address] Dr. Carole Carvalho EO # 0.0 103/ul Normal 0.0-0.7 [facility] Comment on above: Performed By: #### B TOBACCO STRIPPER HAND #### [facility] [address] [place] [address] Dr. Carole Carvalho Eosinophils/100 WBC (Bld) 0.0 % Critically low 0.9-7.0 [facility] Comment on above: Performed By: #### B TOBACCO STRIPPER HAND #### [facility] [address] [place] [address] Dr. Carole Carvalho Erythrocyte distribution width (RBC) [Ratio] 14.6 % Normal 11.0-15.0 [facility] Comment on above: Performed By: #### B TOBACCO STRIPPER HAND #### [facility] [address] [place] [address] Dr. Carole Carvalho Hematocrit (Bld) [Volume fraction] 35.2 % Critically low 42.0-54.0 [facility] Comment on above: Performed By: #### B TOBACCO STRIPPER HAND #### [facility] [address] [address] [address] Carole Carvalho Hemoglobin (Bld) [Mass/Vol] 10.7 g/dL Critically low 14.0-18.0 [facility] Comment on above: Performed By: #### B TOBACCO STRIPPER HAND #### [facility] [address] [place] [address] Dr. Carole Carvalho IG # 0.02 10e3/ul Normal 0.00-0.03 [facility] Comment on above: Performed By: #### B TOBACCO STRIPPER HAND #### [facility] [address] [place] [address] Dr. Carole Carvalho IG % 0.3 % Normal 0.0-0.5 [facility] Comment on above: Performed By: #### B TOBACCO STRIPPER HAND #### [facility] [address] [place] [address] Dr. Carole Carvalho LYMPH # 0.4 103/ul Critically low 1.2-3.8 [facility] Comment on above: Performed By: #### B TOBACCO STRIPPER HAND #### [facility] [address] [place] [address] Dr. Carole Carvalho Lymphocytes/100 WBC (Bld) 5.5 % Critically low 20.5-60.0 [facility] Comment on above: Performed By: #### B TOBACCO STRIPPER HAND #### [facility] [address] [place] [address] Dr. Carole Carvalho MANUAL DIFF REQ NO Normal [facility] Comment on above: Performed By: #### B TOBACCO STRIPPER HAND #### [facility] [address] [place] [address] Dr. Carole Carvalho MCH (RBC) [Entitic mass] 30.2 pg Normal 25.9-34.0 [facility] Comment on above: Performed By: #### B TOBACCO STRIPPER HAND #### [facility] [address] [place] [address] Dr. Carole Carvalho MCHC (RBC) [Mass/Vol] 30.4 g/dL Normal 29.9-35.2 [facility] Comment on above: Performed By: #### B TOBACCO STRIPPER HAND #### [facility] [address] [place] [address] Dr. Carole Carvalho MCV (RBC) [Entitic vol] 99.4 fL Critically high 80.0-94 .0 [facility] Comment on above: Performed By: #### B TOBACCO STRIPPER HAND #### [facility] [address] [place] [address] Dr. Carole Carvalho MONO # 0.7 103/ul Normal 0.3-0.8 [facility] Comment on above: Performed By: #### B TOBACCO STRIPPER HAND #### [facility] [address] [place] [address] Dr. Carole Carvalho Monocytes/100 WBC (Bld) 8.4 % Normal 1.7-12.0 [facility] Comment on above: Performed By: #### B TOBACCO STRIPPER HAND #### [facility] [address] [place] [address] Dr. Carole Carvalho NEUT # 6.7 103/ul Critically high 1.4-6.5 [facility] Comment on above: Performed By: #### B TOBACCO STRIPPER HAND #### [facility] [address] [place] [address] Dr. Carole Carvalho Neutrophils/100 WBC (Bld) 85.5 % Critically high 43.0-75.0 [facility] Comment on above: Performed By: #### B TOBACCO STRIPPER HAND #### [facility] [address] [place] [address] Dr. Carole Carvalho Platelet mean volume (Bld) [Entitic vol] 11.7 fL Normal 9.5-13.5 [facility] Comment on above: Performed By: #### B TOBACCO STRIPPER HAND #### [facility] [address] [place] [address] Dr. Carole Carvalho PLT 137 103/ul Critically low 150-450 [facility] Comment on above: Performed By: #### B TOBACCO STRIPPER HAND #### [facility] [address] [place] [address] Dr. Carole Carvalho RBC 3.54 106/ul Critically low 4.70-6.10 [facility] Comment on above: Performed By: #### B TOBACCO STRIPPER HAND #### [facility] [address] [place] [address] Dr. Carole Carvalho WBC 7.9 103/ul Normal 4.0-11.0 [facility] Comment on above: Performed By: #### B TOBACCO STRIPPER HAND #### [facility] [address] [place] [address] Dr. Carole Carvalho CULTURE BLOODon 07-20-2021 Microscopic examination of blood, culture Culture Observations: Positive blood culture, both bottles. BCID=Staph. aureus. Sent to [facility]. Normal [facility] Comment on above: Performed By: #### L ACT #### [facility] [address] [place] [address] Dr. Carole Carvalho Microscopic examination of blood, culture Culture Observations: Positive blood culture, both bottles. BCID=Staph. aureus. Sent to [facility]. [facility] Comment on above: Performed By: #### L ACT #### [facility] [address] [place] [address] Dr. Carole Carvalho LACTATE/LACTIC ACIDon 2021 Lactate [Moles/Vol] 0.7 mmol/L Normal 0.4-1.9 [facility] Comment on above: Performed By: #### L ACT #### [facility] [address] [place] [address] Dr. Carole Carvalho Lactate [Moles/Vol] 0.6 mmol/L Normal 0.4-1.9 [facility] Comment on above: Performed By: #### C VDTBH #### [facility] [address] [place] [address] Dr. Carole Carvalho LIVER PROFILEon 07-20-2021 Albumin [Mass/Vol] 2.3 g/dL Critically low 3.4-5.0 Th e [facility] Comment on above: Performed By: #### M G #### [facility] [address] [place] [address] Dr. Carole Carvalho Albumin/Globulin [Mass ratio] 0.7 {ratio} Normal [facility] Comment on above: Performed By: #### M G #### [facility] [address] [place] [address] Dr. Carole Carvalho ALP [Catalytic activity/Vol] 87 U/L Normal 46-116 [facility] Comment on above: Performed By: #### M G #### [facility] [address] [address] [address] Carole Carvalho ALT [Catalytic activity/Vol] 28 U/L Normal 16-63 [facility] Comment on above: Performed By: #### M G #### [facility] [address] [address] [address] Carole Carvalho AST [Catalytic activity/Vol] 21 U/L Normal 15-37 [facility] Comment on above: Performed By: #### M G #### [facility] [address] [address] [address] Carole Carvalho BILI, CONJUGATED 0.2 mg/dL Normal 0.0-0.2 [facility] Comment on above: Performed By: #### M G #### [facility] [address] [address] [address] Carole Carvalho Bilirubin [Mass/Vol] 0.8 mg/dL Normal 0.2-1.0 [facility] Comment on above: Performed By: #### M G #### [facility] [address] [address] [address] Carole Carvalho Globulin (S) [Mass/Vol] 3.2 g/dL Normal T [facility] Comment on above: Performed By: #### M G #### [facility] [address] [address] [address] Carole Carvalho Protein [Mass/Vol] 5.5 g/dL Critically low 6.4-8.2 [facility] Comment on above: Performed By: #### M G #### [facility] [address] [address] [address] Carole Carvalho MAGNESIUMon 07-20-2021 Magnesium [Mass/Vol] 1.7 mg/dL Critically low 1.8-2.4 [facility] Comment on above: Performed By: #### C VDTBH #### [facility] [address] [address] [address] Carole Carvalho PROF CHEM 8 (BAS METB)on Anion gap [Moles/Vol] 5.5 mmol/L Normal [facility] Comment on above: Performed By: #### C VDTBH #### [facility] [address] [place] [address] Dr. Carole Carvalho Calcium [Mass/Vol] 7.7 mg/dL Critically low 8.5-10.1 Th e [facility] Comment on above: Performed By: #### C VDTBH #### [facility] [address] [place] [address] Dr. Carole Carvalho Chloride [Moles/Vol] 91 mmol/L Critically low 98-107 [facility] Comment on above: Performed By: #### C VDTBH #### [facility] [address] [place] [address] Dr. Carole Carvalho CO2 [Moles/Vol] 38.5 mmol/L Critically high 21.0-32.0 [facility] Comment on above: Performed By: #### C VDTBH #### [facility] [address] [place] [address] Dr. Carole Carvalho Creatinine [Mass/Vol] 0.67 mg/dL Critically low 0.70-1.30 [facility] Comment on above: Performed By: #### C VDTBH #### [facility] [address] [place] [address] Dr. Carole Carvalho EGFR-AF AUSTRALIAN >60 Normal >=60 [facility] Comment on above: Performed By: #### C VDTBH #### [facility] [address] [place] [address] Dr. Carole Carvalho EGFR-NON AF AUSTRALIAN >60 Normal >=60 [facility] Comment on above: Performed By: #### C VDTBH #### [facility] [address] [place] [address] Dr. Carole Carvalho Glucose [Mass/Vol] 97 mg/dL Normal 74-106 [facility] Comment on above: Performed By: #### C VDTBH #### [facility] [address] [place] [address] Dr. Carole Carvalho Potassium [Moles/Vol] 4.0 mmol/L Normal 3.5-5.1 [facility] Comment on above: Performed By: #### C VDTBH #### [facility] [address] [place] [address] Dr. Carole Carvalho Sodium [Moles/Vol] 131 mmol/L Critically low 136-145 Th e [facility] Comment on above: Performed By: #### C VDTBH #### [facility] [address] [place] [address] Dr. Carole Carvalho Urea nitrogen [Mass/Vol] 13.0 mg/dL Normal 7.0-18.0 [facility] Comment on above: Performed By: #### C VDTBH #### [facility] [address] [place] [address] Dr. Carole Carvalho Urea nitrogen/Creatinine [Mass ratio] 19.4 mg/mg Normal [facility] Comment on above: Performed By: #### C VDTBH #### [facility] [address] [place] [address] Dr. Carole Carvalho UA (CLEAN/CATCH) SVP DIGITAL SALES/MICRO I F IND.on 07-20-2021 Bilirubin Ql (U) Negative Normal NEGATIVE [facility] Comment on above: Performed By: #### L ACT #### [facility] [address] [place] [address] Dr. Carole Carvalho Clarity (U) CLEAR Normal CLEAR [facility] Comment on above: Performed By: #### L ACT #### [facility] [address] [place] [address] Dr. Carole Carvalho Color (U) YELLOW Normal YELLOW [facility] Comment on above: Performed By: #### L ACT #### [facility] [address] [place] [address] Dr. Carole Carvalho Glucose Ql (U) Negative Normal NEGATIVE [facility] Comment on above: Performed By: #### L ACT #### [facility] [address] [place] [address] Dr. Carole Carvalho Hemoglobin Ql (U) Negative Normal NEGATIVE [facility] Comment on above: Performed By: #### L ACT #### [facility] [address] [place] [address] Dr. Carole Carvalho Ketones Ql (U) Negative Normal NEGATIVE [facility] Comment on above: Performed By: #### L ACT #### [facility] [address] [place] [address] Dr. Carole Carvalho LEUKOCYTES Negative Normal NEGATIVE [facility] Comment on above: Performed By: #### L ACT #### [facility] [address] [place] [address] Dr. Carole Carvalho Nitrite Ql (U) Negative Normal NEGATIVE [facility] Comment on above: Performed By: #### L ACT #### [facility] [address] [place] [address] Dr. Carole Carvalho pH (U) 8.0 [pH] Normal 5-9 [facility] Comment on above: Performed By: #### L ACT #### [facility] [address] [place] [address] Dr. Carole Carvalho SPEC GRAVITY 1.015 Normal 1.005-<=1. 025 [facility] Comment on above: Performed By: #### L ACT #### [facility] [address] [place] [address] Dr. Carole Carvalho UA PROTEIN Negative Normal NEGATIVE/ TRACE [facility] Comment on above: Performed By: #### L ACT #### [facility] [address] [place] [address] Dr. Carole Carvalho UR MICRO IND NOT INDICATED Normal [facility] Comment on above: Performed By: #### L ACT #### [facility] [address] [place] [address] Dr. Carole Carvalho Urobilinogen Qn (U) 1.0 {Anjali'U}/dL Normal 0.2 - 1. 0 [facility] Comment on above: Performed By: #### L ACT #### [facility] [address] [place] [address] Dr. Carole Carvalho XR CHEST 2 Von [...] ANNA EUGENE Date: 2021-07-20 07:12 Normal [facility] CBC AUTO DIFFon 07-19-2021 BASO # 0.0 103/ul Normal 0.0-0.1 [facility] Comment on above: Performed By: #### C BC #### [facility] [address] [address] [address] Carole Carvalho Basophils/100 WBC (Bld) 0.2 % Normal 0.2-2.0 [facility] Comment on above: Performed By: #### C BC #### [facility] [address] [address] [address] Carole Carvalho EO # 0.0 103/ul Normal 0.0-0.7 [facility] Comment on above: Performed By: #### C BC #### [facility] [address] [address] [address] Carole Carvalho Eosinophils/100 WBC (Bld) 0.0 % Critically low 0.9-7.0 [facility] Comment on above: Performed By: #### C BC #### [facility] [address] [address] [address] Carole Carvalho Erythrocyte distribution width (RBC) [Ratio] 14.6 % Normal 11.0-15.0 [facility] Comment on above: Performed By: #### C BC #### [facility] [address] [address] [address] Carole Carvalho Hematocrit (Bld) [Volume fraction] 35.4 % Critically low 42.0-54.0 [facility] Comment on above: Performed By: #### C BC #### [facility] [address] [address] [address] Carole Carvalho Hemoglobin (Bld) [Mass/Vol] 10.9 g/dL Critically low 14.0-18.0 [facility] Comment on above: Performed By: #### C BC #### [facility] [address] [place] [address] Dr. Carole Carvaloh IG # 0.03 10e3/ul Normal 0.00-0.03 [facility] Comment on above: Performed By: #### C BC #### [facility] [address] [place] [address] Dr. Carole Carvalho IG % 0.3 % Normal 0.0-0.5 [facility] Comment on above: Performed By: #### C BC #### [facility] [address] [place] [address] Dr. Carole Carvalho LYMPH # 0.3 103/ul Critically low 1.2-3.8 [facility] Comment on above: Performed By: #### C BC #### [facility] [address] [place] [address] Dr. Carole Carvalho Lymphocytes/100 WBC (Bld) 3.1 % Critically low 20.5-60.0 [facility] Comment on above: Performed By: #### C BC #### [facility] [address] [place] [address] Dr. Carole Carvalho MANUAL DIFF REQ NO Normal [facility] Comment on above: Performed By: #### C BC #### [facility] [address] [place] [address] Dr. Carole Carvalho MCH (RBC) [Entitic mass] 30.5 pg Normal 25.9-34.0 [facility] Comment on above: Performed By: #### C BC #### [facility] [address] [place] [address] Dr. Carole Carvalho MCHC (RBC) [Mass/Vol] 30.8 g/dL Normal 29.9-35.2 [facility] Comment on above: Performed By: #### C BC #### [facility] [address] [place] [address] Dr. Carole Carvalho MCV (RBC) [Entitic vol] 99.2 fL Critically high 80.0-94 .0 [facility] Comment on above: Performed By: #### C BC #### [facility] [address] [address] [address] Carole Carvalho MONO # 1.2 103/ul Critically high 0.3-0.8 [facility] Comment on above: Performed By: #### C BC #### [facility] [address] [address] [address] Carole Carvalho Monocytes/100 WBC (Bld) 10.8 % Normal 1.7-12.0 [facility] Comment on above: Performed By: #### C BC #### [facility] [address] [address] [address] Carole Carvalho NEUT # 9.2 103/ul Critically high 1.4-6.5 [facility] Comment on above: Performed By: #### C BC #### [facility] [address] [place] [address] Dr. Carole Carvalho Neutrophils/100 WBC (Bld) 85.6 % Critically high 43.0-75.0 [facility] Comment on above: Performed By: #### C BC #### [facility] [address] [place] [address] Dr. Carole Carvalho Platelet mean volume (Bld) [Entitic vol] 11.4 fL Normal 9.5-13.5 [facility] Comment on above: Performed By: #### C BC #### [facility] [address] [place] [address] Dr. Carole Carvalho PLT 157 103/ul Normal 150-450 [facility] Comment on above: Performed By: #### C BC #### [facility] [address] [place] [address] Dr. Carole Carvalho RBC 3.57 106/ul Critically low 4.70-6.10 [facility] Comment on above: Performed By: #### C BC #### [facility] [address] [place] [address] Dr. Carole Carvalho WBC 10.7 103/ul Normal 4.0-11.0 [facility] Comment on above: Performed By: #### C BC #### [facility] [address] [place] [address] Dr. Carole Carvalho IRON AND TIBCon 07-19-2021 % SATURATION 8.6 % Normal [facility] Comment on above: Performed By: #### F ETIBC, B12FOL #### [facility] [address] [place] [address] Dr. Carole Carvalho Iron [Mass/Vol] 35.0 ug/dL Critically low 65.0-175.0 [facility] Comment on above: Performed By: #### F ETIBC, B12FOL #### [facility] [address] [place] [address] Dr. Carole Carvalho TIBC DIRECT 407.0 ug/dL Normal 250.0-450. 0 [facility] Comment on above: Performed By: #### F ETIBC, B12FOL #### [facility] [address] [place] [address] Dr. Carole Carvalho MAGNESIUMon 07-19-2021 Magnesium [Mass/Vol] 1.7 mg/dL Critically low 1.8-2.4 [facility] Comment on above: Performed By: #### M G #### [facility] [address] [place] [address] Dr. Carole Carvalho PROF CHEM 8 (BAS METB)on Anion gap [Moles/Vol] 6.0 mmol/L Normal [facility] Comment on above: Performed By: #### M G #### [facility] [address] [place] [address] Dr. Carole Carvalho Calcium [Mass/Vol] 7.9 mg/dL Critically low 8.5-10.1 Th e [facility] Comment on above: Performed By: #### M G #### [facility] [address] [place] [address] Dr. Carole Carvalho Chloride [Moles/Vol] 92 mmol/L Critically low 98-107 [facility] Comment on above: Performed By: #### M G #### [facility] [address] [place] [address] Dr. Carole Carvalho CO2 [Moles/Vol] 39.5 mmol/L Critically high 21.0-32.0 [facility] Comment on above: Performed By: #### M G #### [facility] [address] [address] [address] Carole Carvalho Creatinine [Mass/Vol] 0.64 mg/dL Critically low 0.70-1.30 [facility] Comment on above: Performed By: #### M G #### [facility] [address] [address] [address] Carole Carvalho EGFR-AF AUSTRALIAN >60 Normal >=60 [facility] Comment on above: Performed By: #### M G #### [facility] [address] [address] [address] Carole Carvalho EGFR-NON AF AUSTRALIAN >60 Normal >=60 [facility] Comment on above: Performed By: #### M G #### [facility] [address] [place] [address] Dr. Carole Carvalho Glucose [Mass/Vol] 110 mg/dL Critically high 74-106 T [facility] Comment on above: Performed By: #### M G #### [facility] [address] [place] [address] Dr. Carole Carvalho Potassium [Moles/Vol] 3.5 mmol/L Normal 3.5-5.1 [facility] Comment on above: Performed By: #### M G #### [facility] [address] [place] [address] Dr. Carole Cavralho Sodium [Moles/Vol] 134 mmol/L Critically low 136-145 Th [facility] Comment on above: Performed By: #### M G #### [facility] [address] [place] [address] Dr. Carole Carvalho Urea nitrogen [Mass/Vol] 20.0 mg/dL Critically high 7.0-18 .0 [facility] Comment on above: Performed By: #### M G #### [facility] [address] [place] [address] Dr. Carole Carvalho Urea nitrogen/Creatinine [Mass ratio] 31.2 mg/mg Normal [facility] Comment on above: Performed By: #### M G #### [facility] [address] [place] [address] Dr. Carole Carvalho VIT B12 AND FOLATEon Cobalamin (Vitamin B12) [Mass/Vol] 481.0 pg/mL Normal 193.0-986. 0 [facility] Comment on above: Performed By: #### L ACT #### [facility] [address] [place] [address] Dr. Carole Carvalho FOLATE 7.70 ng/mL Critically low 8.60-58.90 [facility] Comment on above: Performed By: #### L ACT #### [facility] [address] [place] [address] Dr. Carole Carvalho CBC AUTO DIFFon 07-18-2021 BASO # 0.0 103/ul Normal 0.0-0.1 [facility] Comment on above: Performed By: #### L ACT #### [facility] [address] [place] [address] Dr. Carole Carvalho Basophils/100 WBC (Bld) 0.2 % Normal 0.2-2.0 [facility] Comment on above: Performed By: #### L ACT #### [facility] [address] [place] [address] Dr. Carole Carvalho EO # 0.0 103/ul Normal 0.0-0.7 [facility] Comment on above: Performed By: #### L ACT #### [facility] [address] [place] [address] Dr. Carole Carvalho Eosinophils/100 WBC (Bld) 0.0 % Critically low 0.9-7.0 [facility] Comment on above: Performed By: #### L ACT #### [facility] [address] [place] [address] Dr. Carole Carvalho Erythrocyte distribution width (RBC) [Ratio] 14.2 % Normal 11.0-15.0 [facility] Comment on above: Performed By: #### L ACT #### [facility] [address] [place] [address] Dr. Carole Carvalho Hematocrit (Bld) [Volume fraction] 38.1 % Critically low 42.0-54.0 [facility] Comment on above: Performed By: #### L ACT #### [facility] [address] [place] [address] Dr. Carole Carvalho Hemoglobin (Bld) [Mass/Vol] 11.4 g/dL Critically low 14.0-18.0 [facility] Comment on above: Performed By: #### L ACT #### [facility] [address] [place] [address] Dr. Carole Carvalho IG # 0.03 10e3/ul Normal 0.00-0.03 [facility] Comment on above: Performed By: #### L ACT #### [facility] [address] [place] [address] Dr. Carole Carvalho IG % 0.3 % Normal 0.0-0.5 [facility] Comment on above: Performed By: #### L ACT #### [facility] [address] [place] [address] Dr. Carole Carvalho LYMPH # 1.1 103/ul Critically low 1.2-3.8 [facility] Comment on above: Performed By: #### L ACT #### [facility] [address] [place] [address] Dr. Carole Carvalho Lymphocytes/100 WBC (Bld) 12.2 % Critically low 20.5-60.0 [facility] Comment on above: Performed By: #### L ACT #### [facility] [address] [place] [address] Dr. Carole Carvalho MANUAL DIFF REQ NO Normal [facility] Comment on above: Performed By: #### L ACT #### [facility] [address] [place] [address] Dr. Carole Carvalho MCH (RBC) [Entitic mass] 30.4 pg Normal 25.9-34.0 [facility] Comment on above: Performed By: #### L ACT #### [facility] [address] [place] [address] Dr. Carole Carvalho MCHC (RBC) [Mass/Vol] 29.9 g/dL Normal 29.9-35.2 [facility] Comment on above: Performed By: #### L ACT #### [facility] [address] [address] [address] Carole Carvalho MCV (RBC) [Entitic vol] 101.6 fL Critically high 80.0-94 .0 [facility] Comment on above: Performed By: #### L ACT #### [facility] [address] [address] [address] Carole Carvalho MONO # 1.1 103/ul Critically high 0.3-0.8 [facility] Comment on above: Performed By: #### L ACT #### [facility] [address] [place] [address] Dr. Carole Carvalho Monocytes/100 WBC (Bld) 12.7 % Critically high 1.7-12. 0 [facility] Comment on above: Performed By: #### L ACT #### [facility] [address] [place] [address] Dr. Carole Carvalho NEUT # 6.6 103/ul Critically high 1.4-6.5 [facility] Comment on above: Performed By: #### L ACT #### [facility] [address] [place] [address] Dr. Carole Carvalho Neutrophils/100 WBC (Bld) 74.6 % Normal 43.0-75.0 [facility] Comment on above: Performed By: #### L ACT #### [facility] [address] [address] [address] Carole Carvalho Platelet mean volume (Bld) [Entitic vol] 11.1 fL Normal 9.5-13.5 [facility] Comment on above: Performed By: #### L ACT #### [facility] [address] [address] [address] Carole Carvalho PLT 175 103/ul Normal 150-450 [facility] Comment on above: Performed By: #### L ACT #### [facility] [address] [place] [address] Dr. Carole Carvalho RBC 3.75 106/ul Critically low 4.70-6.10 [facility] Comment on above: Performed By: #### L ACT #### [facility] [address] [address] [address] Carole Carvalho WBC 8.9 103/ul Normal 4.0-11.0 [facility] Comment on above: Performed By: #### L ACT #### [facility] [address] [address] [address] Carole Carvalho LIPID PROFILEon 07-18-2021 CHOL-HDL RATIO NORM SEE BELOW Normal [facility] Comment on above: Result Comment: 3.3 - 4.4 LOW RISK 4.4 - 7.1 AVERAGE RISK 7.1 - 11.0 MODERATE RISK >11.0 HIGH RISK Performed By: #### M G, BMP #### [facility] [address] [place] [address] Dr. Carole Carvalho Cholesterol [Mass/Vol] 111 mg/dL Normal <=200 Th [facility] Comment on above: Performed By: #### Holly Gómez, BMP #### [facility] [address] [place] [address] Dr. Carole Carvalho Cholesterol in HDL [Mass/Vol] 37 mg/dL Critically low 40-60 [facility] Comment on above: Performed By: #### Holly G, BMP #### [facility] [address] [place] [address] Dr. Carloe Carvalho Cholesterol in LDL [Mass/Vol] 63.0 mg/dL Normal [facility] Comment on above: Performed By: #### Holly Gómez, BMP #### [facility] [address] [address] [address] Carole Carvalho Cholesterol.total/Choles terol in HDL [Mass ratio] 3.0 {ratio} Normal [facility] Comment on above: Performed By: #### M G, BMP #### [facility] [address] [place] [address] Dr. Carole Carvalho HDL NORMAL > or = 60 mg/dl - LO W CARDIOVASCULAR RISK <40 mg/dl - HIGH CARDIOVASCULAR RISK Normal [facility] Comment on above: Performed By: #### Holly G, BMP #### [facility] [address] [place] [address] Dr. Carole Carvalho LDL CALC NORMAL SEE BELOW Normal [facility] Comment on above: Result Comment: <100 mg/dl OPTIMAL 100 - 129 mg/dl NEAR OR ABOVE OPTIMAL 130 - 159 mg/dl BORDERLINE HIGH 160 - 189 mg/dl HIGH >190 mg/dl VERY HIGH Performed By: #### M G, BMP #### [facility] [address] [address] [address] Carole Carvalho Triglyceride [Mass/Vol] 55 mg/dL Normal <=150 T [facility] Comment on above: Performed By: #### M G, BMP #### [facility] [address] [address] [address] Carole Carvalho VLDL CALC 11.0 mg/dL Normal [facility] Comment on above: Performed By: #### M G, BMP #### [facility] [address] [place] [address] Dr. Carole Carvalho MAGNESIUMon 07-18-2021 Magnesium [Mass/Vol] 2.1 mg/dL Normal 1.8-2.4 [facility] Comment on above: Performed By: #### M G, BMP #### [facility] [address] [address] [address] Carole Carvalho PROF CHEM 8 (BAS METB)on Anion gap [Moles/Vol] 2.6 mmol/L Normal [facility] Comment on above: Performed By: #### M G, BMP #### [facility] [address] [address] [address] Carole Carvalho Calcium [Mass/Vol] 7.8 mg/dL Critically low 8.5-10.1 [facility] Comment on above: Performed By: #### M G, BMP #### [facility] [address] [place] [address] Dr. Carole Carvalho Chloride [Moles/Vol] 93 mmol/L Critically low 98-107 [facility] Comment on above: Performed By: #### M G, BMP #### [facility] [address] [address] [address] Carole Carvalho CO2 [Moles/Vol] 46.0 mmol/L Critically high 21.0-32.0 [facility] Comment on above: Performed By: #### M G, BMP #### [facility] [address] [place] [address] Dr. Carole Carvalho Creatinine [Mass/Vol] 0.65 mg/dL Critically low 0.70-1.30 [facility] Comment on above: Performed By: #### M G, BMP #### [facility] [address] [place] [address] Dr. Carole Carvalho EGFR-AF AUSTRALIAN >60 Normal >=60 [facility] Comment on above: Performed By: #### M G, BMP #### [facility] [address] [place] [address] Dr. Carole Carvalho EGFR-NON AF AUSTRALIAN >60 Normal >=60 [facility] Comment on above: Performed By: #### M G, BMP #### [facility] [address] [place] [address] Dr. Carole Carvalho Glucose [Mass/Vol] 92 mg/dL Normal 74-106 [facility] Comment on above: Performed By: #### M G, BMP #### [facility] [address] [place] [address] Dr. Carole Carvalho Potassium [Moles/Vol] 3.6 mmol/L Normal 3.5-5.1 [facility] Comment on above: Performed By: #### M G, BMP #### [facility] [address] [place] [address] Dr. Carole Carvalho Sodium [Moles/Vol] 138 mmol/L Normal 136-145 [facility] Comment on above: Performed By: #### M G, BMP #### [facility] [address] [place] [address] Dr. Carole Carvalho Urea nitrogen [Mass/Vol] 21.0 mg/dL Critically high 7.0-18 .0 [facility] Comment on above: Performed By: #### M G, BMP #### [facility] [address] [place] [address] Dr. Carole Carvalho Urea nitrogen/Creatinine [Mass ratio] 32.3 mg/mg Normal [facility] Comment on above: Performed By: #### M G, BMP #### [facility] [address] [place] [address] Dr. Carole Carvalho BLOOD GASES BTYon 07-17-2021 02 MODE BIPAP Normal [facility] Comment on above: Performed By: #### M G, BMP #### [facility] [address] [place] [address] Dr. Carole Carvalho ALLENS TEST Positive Normal [facility] Comment on above: Performed By: #### M G, BMP #### [facility] [address] [place] [address] Dr. Carole Carvalho Base excess Calc (Bld) [Moles/Vol] 22.4 mmol/L Critically high -2.0-2.0 [facility] Comment on above: Performed By: #### M G, BMP #### [facility] [address] [place] [address] Dr. Carole Carvalho BIPAP PRESSURE 18/8 Normal [facility] Comment on above: Performed By: #### M G, BMP #### [facility] [address] [place] [address] Dr. Carole Carvalho CO2 [Moles/Vol] 95.2 mmol/L Critically high 23.0-28.0 [facility] Comment on above: Performed By: #### M G, BMP #### [facility] [address] [place] [address] Dr. Carole Carvalho CPAP Normal [facility] Comment on above: Performed By: #### M G, BMP #### [facility] [address] [place] [address] Dr. Carole Carvalho FIO2 40.00 % Normal [facility] Comment on above: Performed By: #### M G, BMP #### [facility] [address] [place] [address] Dr. Carole Carvalho HCO3 (Bld) [Moles/Vol] 42.7 mmol/L Critically high 22.0-26 .0 [facility] Comment on above: Performed By: #### M G, BMP #### [facility] [address] [place] [address] Dr. Carole Carvalho [facility] Comment on above: Performed By: #### M G, BMP #### [facility] [address] [place] [address] Dr. Carole Carvalho MINUTE VOLUME Normal [facility] Comment on above: Performed By: #### M G, BMP #### [facility] [address] [place] [address] Dr. Carole Carvalho Oxygen (Bld) [Partial pressure] 106.0 mm[Hg] Critically high 80.0-100.0 [facility] Comment on above: Performed By: #### M G, BMP #### [facility] [address] [place] [address] Dr. Carole Carvalho Oxygen saturation in Blood 98.9 % Normal 95.0-100.0 [facility] Comment on above: Performed By: #### M G, BMP #### [facility] [address] [place] [address] Dr. Carole Carvalho PCO2 74.9 mmHg Critically high 35.0-45.0 [facility] Comment on above: Performed By: #### M G, BMP #### [facility] [address] [place] [address] Dr. Carole Carvalho [facility] Comment on above: Performed By: #### M G, BMP #### [facility] [address] [place] [address] Dr. Carole Carvalho pH (Bld) 7.406 [pH] Normal 7.350-7.45 0 [facility] Comment on above: Performed By: #### M G, BMP #### [facility] [address] [place] [address] Dr. Carole Carvalho [facility] Comment on above: Performed By: #### M G, BMP #### [facility] [address] [place] [address] Dr. Carole Carvalho [facility] Comment on above: Performed By: #### M G, BMP #### [facility] [address] [address] [address] Carole Carvalho PUNCTURE SITE RR Normal [facility] Comment on above: Performed By: #### M G, BMP #### [facility] [address] [place] [address] Dr. Carole Carvalho RATE Normal [facility] Comment on above: Performed By: #### M G, BMP #### [facility] [address] [address] [address] Carole Carvalho VENT MODE Normal [facility] Comment on above: Performed By: #### M G, BMP #### [facility] [address] [address] [address] Carole Carvalho [facility] Comment on above: Performed By: #### M G, BMP #### [facility] [address] [place] [address] Dr. Carole Carvalho 02 MODE BIPAP [facility] Comment on above: Performed By: #### M G, BMP #### [facility] [address] [place] [address] Dr. Carole Carvalho ALLENS TEST Positive [facility] Comment on above: Performed By: #### M G, BMP #### [facility] [address] [place] [address] Dr. Carole Carvalho Base excess Calc (Bld) [Moles/Vol] 18.2 mmol/L Critically high -2.0-2.0 [facility] Comment on above: Performed By: #### M G, BMP #### [facility] [address] [place] [address] Dr. Carole Carvalho BIPAP PRESSURE Normal [facility] Comment on above: Performed By: #### M G, BMP #### [facility] [address] [address] [address] Carole Carvalho CO2 [Moles/Vol] 91.2 mmol/L Critically high 23.0-28.0 [facility] Comment on above: Performed By: #### M G, BMP #### [facility] [address] [place] [address] Dr. Carole Carvalho CPAP [facility] Comment on above: Performed By: #### M G, BMP #### [facility] [address] [place] [address] Dr. Carole Carvalho FIO2 30.00 % Normal [facility] Comment on above: Performed By: #### M G, BMP #### [facility] [address] [place] [address] Dr. Carole Carvalho HCO3 (Bld) [Moles/Vol] 38.2 mmol/L Critically high 22.0-26 .0 [facility] Comment on above: Performed By: #### M G, BMP #### [facility] [address] [place] [address] Dr. Carole Carvalho [facility] Comment on above: Performed By: #### M G, BMP #### [facility] [address] [place] [address] Dr. Carole Carvalho MINUTE VOLUME Normal [facility] Comment on above: Performed By: #### M G, BMP #### [facility] [address] [place] [address] Dr. Carole Carvalho Oxygen (Bld) [Partial pressure] 58.3 mm[Hg] Critically low 80.0-100.0 [facility] Comment on above: Performed By: #### M G, BMP #### [facility] [address] [place] [address] Dr. Carole Carvalho Oxygen saturation in Blood 89.7 % Critically low 95.0-100.0 [facility] Comment on above: Performed By: #### M G, BMP #### [facility] [address] [place] [address] Dr. Carole Carvalho PCO2 84.0 mmHg Critically high 35.0-45.0 [facility] Comment on above: Performed By: #### M G, BMP #### [facility] [address] [place] [address] Dr. Carole Carvalho PEEP Normal [facility] Comment on above: Performed By: #### M G, BMP #### [facility] [address] [place] [address] Dr. Carole Carvalho pH (Bld) 7.329 [pH] Critically low 7.350-7.45 0 [facility] Comment on above: Performed By: #### M G, BMP #### [facility] [address] [place] [address] Dr. Carole Carvalho [facility] Comment on above: Performed By: #### M G, BMP #### [facility] [address] [place] [address] Dr. Carole Carvalho PS [facility] Comment on above: Performed By: #### M G, BMP #### [facility] [address] [address] [address] Carole Carvalho PUNCTURE SITE LR [facility] Comment on above: Performed By: #### M G, BMP #### [facility] [address] [place] [address] Dr. Carole Carvalho RATE [facility] Comment on above: Performed By: #### M G, BMP #### [facility] [address] [address] [address] Carole Carvalho VENT MODE [facility] Comment on above: Performed By: #### M G, BMP #### [facility] [address] [place] [address] Dr. Carole Carvalho [facility] Comment on above: Performed By: #### M G, BMP #### [facility] [address] [place] [address] Dr. Carole Carvalho 02 MODE VENTURI MASK [place] [facility] Comment on above: Performed By: #### M G, BMP #### [facility] [address] [place] [address] Dr. Carole Carvalho ALLENS TEST Positive [facility] Comment on above: Performed By: #### M G, BMP #### [facility] [address] [place] [address] Dr. Carole Carvalho Base excess Calc (Bld) [Moles/Vol] 16.9 mmol/L Critically high -2.0-2.0 [facility] Comment on above: Performed By: #### M G, BMP #### [facility] [address] [place] [address] Dr. Carole Carvalho BIPAP PRESSURE Normal [facility] Comment on above: Performed By: #### M G, BMP #### [facility] [address] [place] [address] Dr. Carole Carvalho CO2 [Moles/Vol] 89.8 mmol/L Critically high 23.0-28.0 [facility] Comment on above: Performed By: #### M G, BMP #### [facility] [address] [place] [address] Dr. Carole Carvalho CPAP [facility] Comment on above: Performed By: #### M G, BMP #### [facility] [address] [place] [address] Dr. Carole Carvalho FIO2 45.00 % [facility] Comment on above: Performed By: #### M G, BMP #### [facility] [address] [place] [address] Dr. Carole Carvalho HCO3 (Bld) [Moles/Vol] 36.9 mmol/L Critically high 22.0-26 .0 [facility] Comment on above: Performed By: #### M G, BMP #### [facility] [address] [place] [address] Dr. Carole Carvalho LPM 12 [facility] Comment on above: Performed By: #### M G, BMP #### [facility] [address] [place] [address] Dr. Carole Carvalho MINUTE VOLUME Normal [facility] Comment on above: Performed By: #### M G, BMP #### [facility] [address] [place] [address] Dr. Carole Carvalho Oxygen (Bld) [Partial pressure] 81.4 mm[Hg] Normal 80.0-100.0 [facility] Comment on above: Performed By: #### M G, BMP #### [facility] [address] [place] [address] Dr. Carole Carvalho Oxygen saturation in Blood 95.8 % Normal 95.0-100.0 [facility] Comment on above: Performed By: #### M G, BMP #### [facility] [address] [place] [address] Dr. Carole Carvalho PCO2 88.1 mmHg Critically high 35.0-45.0 [facility] Comment on above: Performed By: #### M G, BMP #### [facility] [address] [place] [address] Dr. Carole Carvalho PEEP [facility] Comment on above: Performed By: #### M G, BMP #### [facility] [address] [place] [address] Dr. Carole Carvalho pH (Bld) 7.300 [pH] Critically low 7.350-7.45 0 [facility] Comment on above: Performed By: #### M G, BMP #### [facility] [address] [place] [address] Dr. Carole Carvalho [facility] Comment on above: Performed By: #### M G, BMP #### [facility] [address] [place] [address] Dr. Carole Carvalho [facility] Comment on above: Performed By: #### M G, BMP #### [facility] [address] [place] [address] Dr. Carole Carvalho PUNCTURE SITE LR [facility] Comment on above: Performed By: #### M G, BMP #### [facility] [address] [place] [address] Dr. Carole Carvalho RATE [facility] Comment on above: Performed By: #### M G, BMP #### [facility] [address] [place] [address] Dr. Carole Carvalho VENT MODE [facility] Comment on above: Performed By: #### M G, BMP #### [facility] [address] [place] [address] Dr. Carole Carvalho [facility] Comment on above: Performed By: #### M G, BMP #### [facility] [address] [place] [address] Dr. Carole Carvalho BNPon 07-17-2021 Natriuretic peptide B (Bld) [Mass/Vol] 2579.0 pg/mL Critically high <=900.0 [facility] Comment on above: Result Comment: repe ated Performed By: #### B TOBACCO STRIPPER HAND #### [facility] [address] [place] [address] Dr. Carole Carvalho CBC AUTO DIFFon 07-17-2021 BASO # 0.0 103/ul Normal 0.0-0.1 [facility] Comment on above: Performed By: #### L ACT #### [facility] [address] [place] [address] Dr. Carole Carvalho Basophils/100 WBC (Bld) 0.3 % Normal 0.2-2.0 [facility] Comment on above: Performed By: #### L ACT #### [facility] [address] [place] [address] Dr. Carole Carvalho EO # 0.0 103/ul Normal 0.0-0.7 [facility] Comment on above: Performed By: #### L ACT #### [facility] [address] [place] [address] Dr. Carole Carvalho Eosinophils/100 WBC (Bld) 0.1 % Critically low 0.9-7.0 [facility] Comment on above: Performed By: #### L ACT #### [facility] [address] [place] [address] Dr. Carole Carvalho Erythrocyte distribution width (RBC) [Ratio] 14.2 % Normal 11.0-15.0 [facility] Comment on above: Performed By: #### L ACT #### [facility] [address] [place] [address] Dr. Carole Carvalho Hematocrit (Bld) [Volume fraction] 38.0 % Critically low 42.0-54.0 [facility] Comment on above: Performed By: #### L ACT #### [facility] [address] [place] [address] Dr. Carole Carvalho Hemoglobin (Bld) [Mass/Vol] 11.4 g/dL Critically low 14.0-18.0 [facility] Comment on above: Performed By: #### L ACT #### [facility] [address] [address] [address] Carole Carvalho IG # 0.04 10e3/ul Critically high 0.00-0.03 [facility] Comment on above: Performed By: #### L ACT #### [facility] [address] [address] [address] Carole Carvalho IG % 0.4 % Normal 0.0-0.5 [facility] Comment on above: Performed By: #### L ACT #### [facility] [address] [place] [address] Dr. Carole Carvalho LYMPH # 1.4 103/ul Normal 1.2-3.8 [facility] Comment on above: Performed By: #### L ACT #### [facility] [address] [place] [address] Dr. Carole Carvalho Lymphocytes/100 WBC (Bld) 14.5 % Critically low 20.5-60.0 [facility] Comment on above: Performed By: #### L ACT #### [facility] [address] [place] [address] Dr. Carole Carvalho MANUAL DIFF REQ NO Normal [facility] Comment on above: Performed By: #### L ACT #### [facility] [address] [place] [address] Dr. Carole Carvalho MCH (RBC) [Entitic mass] 31.1 pg Normal 25.9-34.0 [facility] Comment on above: Performed By: #### L ACT #### [facility] [address] [place] [address] Dr. Carole Carvalho MCHC (RBC) [Mass/Vol] 30.0 g/dL Normal 29.9-35.2 [facility] Comment on above: Performed By: #### L ACT #### [facility] [address] [place] [address] Dr. Carole Carvalho MCV (RBC) [Entitic vol] 103.5 fL Critically high 80.0-94 .0 [facility] Comment on above: Performed By: #### L ACT #### [facility] [address] [address] [address] Carole Carvalho MONO # 1.3 103/ul Critically high 0.3-0.8 [facility] Comment on above: Performed By: #### L ACT #### [facility] [address] [place] [address] Dr. Carole Carvalho Monocytes/100 WBC (Bld) 13.4 % Critically high 1.7-12. 0 [facility] Comment on above: Performed By: #### L ACT #### [facility] [address] [place] [address] Dr. Carole Carvalho NEUT # 7.0 103/ul Critically high 1.4-6.5 [facility] Comment on above: Performed By: #### L ACT #### [facility] [address] [place] [address] Dr. Carole Carvalho Neutrophils/100 WBC (Bld) 71.3 % Normal 43.0-75.0 [facility] Comment on above: Performed By: #### L ACT #### [facility] [address] [place] [address] Dr. Carole Carvalho Platelet mean volume (Bld) [Entitic vol] 11.3 fL Normal 9.5-13.5 [facility] Comment on above: Performed By: #### L ACT #### [facility] [address] [place] [address] Dr. Carole Carvalho PLT 169 103/ul Normal 150-450 [facility] Comment on above: Performed By: #### L ACT #### [facility] [address] [place] [address] Dr. Carole Carvalho RBC 3.67 106/ul Critically low 4.70-6.10 [facility] Comment on above: Performed By: #### L ACT #### [facility] [address] [place], [place] [id number] Dr. Carole Carvalho WBC 9.9 103/ul Normal 4.0-11.0 [facility] Comment on above: Performed By: #### L ACT #### [facility] [address] [place], [place] [id number] Dr. Carole Carvalho CTA CHEST WO W CONon 05-20-2 022 CTA CHEST WO W CON EXAMINATION: [...] thickness on right, 0.7 cm on left. MILVIA: Calcified lymph nodes. MEDIASTINUM: No mass or [...] by: KATE BUSH Date: 2021-07-17 08:34 Normal [facility] ECHOCARDIO M/2D COMPLETEon 0 07-17-2021 ECHOCARDIO M/2D COMPLETE Patient: JAIME BLACK Exam Date: 07/17/2021 : 1955 Gender:M Ordering : SHAIKH Nelia ALLEN . Admission #: [id number] Family : Order #: [id number] CLICK HERE TO VIEW EXAM ECHOCARDIOGRAM REPORT [...] Sheridan M.D. on 07/17/2021 at 13:29 Normal [facility] MAGNESIUMon 07-17-2021 Magnesium [Mass/Vol] 2.3 mg/dL Normal 1.8-2.4 [facility] Comment on above: Performed By: #### M G, BMP #### [facility] [address] [place] [address] Dr. Carole Carvalho PROF CHEM 8 (BAS METB)on Anion gap [Moles/Vol] 3.5 mmol/L Normal [facility] Comment on above: Performed By: #### M G, BMP #### [facility] [address] [place] [address] Dr. Carole Carvalho Calcium [Mass/Vol] 7.7 mg/dL Critically low 8.5-10.1 [facility] Comment on above: Performed By: #### Holly G, BMP #### [facility] [address] [place] [address] Dr. Carole Carvalho Chloride [Moles/Vol] 96 mmol/L Critically low 98-107 [facility] Comment on above: Performed By: #### M G, BMP #### [facility] [address] [place] [address] Dr. Carole Carvalho CO2 [Moles/Vol] 43.4 mmol/L Critically high 21.0-32.0 [facility] Comment on above: Performed By: #### M G, BMP #### [facility] [address] [place] [address] Dr. Carole Carvalho Creatinine [Mass/Vol] 0.76 mg/dL Normal 0.70-1.30 [facility] Comment on above: Performed By: #### M G, BMP #### [facility] [address] [place] [address] Dr. Carole Carvalho EGFR-AF AUSTRALIAN >60 Normal >=60 [facility] Comment on above: Performed By: #### M G, BMP #### [facility] [address] [place] [address] Dr. Carole Carvalho EGFR-NON AF AUSTRALIAN >60 Normal >=60 [facility] Comment on above: Performed By: #### M G, BMP #### [facility] [address] [address] [address] Carole Carvalho Glucose [Mass/Vol] 85 mg/dL Normal 74-106 [facility] Comment on above: Performed By: #### M G, BMP #### [facility] [address] [address] [address] Carole Carvalho Potassium [Moles/Vol] 4.9 mmol/L Normal 3.5-5.1 [facility] Comment on above: Performed By: #### M G, BMP #### [facility] [address] [address] [address] Carole Carvalho Sodium [Moles/Vol] 138 mmol/L Normal 136-145 [facility] Comment on above: Performed By: #### M G, BMP #### [facility] [address] [address] [address] Carole Carvalho Urea nitrogen [Mass/Vol] 27.0 mg/dL Critically high 7.0-18 .0 [facility] Comment on above: Performed By: #### M G, BMP #### [facility] [address] [address] [address] Carole Carvalho Urea nitrogen/Creatinine [Mass ratio] 35.5 mg/mg Normal [facility] Comment on above: Performed By: #### M G, BMP #### [facility] [address] [address] [address] Carole Carvalho TROPONIN, HIGH SENSITIVITYon 07-17-2021 HSTROP 23.9 pg/mL Normal 4.0-76.1 [facility] Comment on above: Result Comment: CUT- OFF POINTS HAVE BEEN ESTABLISHED BASED ON THE FOURTH UNIVERSAL DEFINITIONS OF MYOCARDIAL INFARCTION. THE UPPER REFERENCE LIMIT (URL) OF TROPONIN, DEFINED THE 99TH PERCENTILE OF cTnI DISTRIBUTION IN A REFERENCE POPULATION, HAS BEEN CONFIRMED THE DECISION THRESHOLD FOR [place] DIAGNOSIS. Performed By: #### M G, BMP #### [facility] [address] [address] [address] Carole Carvalho BNPon 07-16-2021 Natriuretic peptide B (Bld) [Mass/Vol] 6272.0 pg/mL Critically high <=900.0 [facility] Comment on above: Result Comment: test repeated critical value verified Performed By: #### B TOBACCO STRIPPER HAND #### [facility] [address] [place] [address] Dr. Carole Carvalho CBC AUTO DIFFon 07-16-2021 BASO # 0.0 103/ul Normal 0.0-0.1 [facility] Comment on above: Performed By: #### C BC #### [facility] [address] [place] [address] Dr. Carole Carvalho Basophils/100 WBC (Bld) 0.2 % Normal 0.2-2.0 [facility] Comment on above: Performed By: #### C BC #### [facility] [address] [place] [address] Dr. Carole Carvalho EO # 0.0 103/ul Normal 0.0-0.7 [facility] Comment on above: Performed By: #### C BC #### [facility] [address] [place] [address] Dr. Carole Carvalho Eosinophils/100 WBC (Bld) 0.0 % Critically low 0.9-7.0 [facility] Comment on above: Performed By: #### C BC #### [facility] [address] [place] [address] Dr. Carole Carvalho Erythrocyte distribution width (RBC) [Ratio] 14.2 % Normal 11.0-15.0 [facility] Comment on above: Performed By: #### C BC #### [facility] [address] [place] [address] Dr. Carole Carvalho Hematocrit (Bld) [Volume fraction] 43.5 % Normal 42.0-54.0 [facility] Comment on above: Performed By: #### C BC #### [facility] [address] [place] [address] Dr. Carole Carvalho Hemoglobin (Bld) [Mass/Vol] 13.5 g/dL Critically low 14.0-18.0 [facility] Comment on above: Performed By: #### C BC #### [facility] [address] [place] [address] Dr. Carole Carvalho IG # 0.04 10e3/ul Critically high 0.00-0.03 [facility] Comment on above: Performed By: #### C BC #### [facility] [address] [place] [address] Dr. Carole Carvalho IG % 0.4 % Normal 0.0-0.5 [facility] Comment on above: Performed By: #### C BC #### [facility] [address] [place] [address] Dr. Carole Carvalho LYMPH # 1.1 103/ul Critically low 1.2-3.8 [facility] Comment on above: Performed By: #### C BC #### [facility] [address] [place] [address] Dr. Carole Carvalho Lymphocytes/100 WBC (Bld) 11.0 % Critically low 20.5-60.0 [facility] Comment on above: Performed By: #### C BC #### [facility] [address] [place] [address] Dr. Carole Carvalho MANUAL DIFF REQ NO Normal [facility] Comment on above: Performed By: #### C BC #### [facility] [address] [place] [address] Dr. Carole Carvalho MCH (RBC) [Entitic mass] 31.5 pg Normal 25.9-34.0 [facility] Comment on above: Performed By: #### C BC #### [facility] [address] [place] [address] Dr. Caroel Carvalho MCHC (RBC) [Mass/Vol] 31.0 g/dL Normal 29.9-35.2 [facility] Comment on above: Performed By: #### C BC #### [facility] [address] [place] [address] Dr. Carole Carvalho MCV (RBC) [Entitic vol] 101.4 fL Critically high 80.0-94 .0 [facility] Comment on above: Performed By: #### C BC #### [facility] [address] [place] [address] Dr. Carole Carvalho MONO # 1.2 103/ul Critically high 0.3-0.8 [facility] Comment on above: Performed By: #### C BC #### [facility] [address] [place] [address] Dr. Carole Carvalho Monocytes/100 WBC (Bld) 11.6 % Normal 1.7-12.0 [facility] Comment on above: Performed By: #### C BC #### [facility] [address] [place] [address] Dr. Carole Carvalho NEUT # 8.0 103/ul Critically high 1.4-6.5 [facility] Comment on above: Performed By: #### C BC #### [facility] [address] [place] [address] Dr. Carole Carvalho Neutrophils/100 WBC (Bld) 76.8 % Critically high 43.0-75.0 [facility] Comment on above: Performed By: #### C BC #### [facility] [address] [place] [address] Dr. Carole Carvalho Platelet mean volume (Bld) [Entitic vol] 11.5 fL Normal 9.5-13.5 [facility] Comment on above: Performed By: #### C BC #### [facility] [address] [place] [address] Dr. Carole Carvalho PLT 221 103/ul Normal 150-450 [facility] Comment on above: Performed By: #### C BC #### [facility] [address] [place] [address] Dr. Carole Carvalho RBC 4.29 106/ul Critically low 4.70-6.10 [facility] Comment on above: Performed By: #### C BC #### [facility] [address] [place] [address] Dr. Carole Carvalho WBC 10.4 103/ul Normal 4.0-11.0 [facility] Comment on above: Performed By: #### C BC #### [facility] [address] [place] [address] Dr. Carole Carvalho Covid-19 PCR (CVDTBH)on 06-28 SARS-CoV-2 (COVID-19) RNA [place]+probe Ql (Unsp spec) Not detected Normal NOT DETECTED [facility] Comment on above: Result Comment: When diagnostic testing is negative, the possibility of a false negative should be considered in the context of a patient's recent exposures and the presence of clinical signs and symptoms consistent with SARS-CoV-2. This test is not yet approved or cleared by the [place] Food and Drug Administration (FDA). This test was developed by [employer], [place], [place]. The performance characteristics of this test were validated by [facility]. The results are not intended to be used as the sole means for clinical diagnosis or patient management decisions. [facility] is authorized under Clinical Laboratory Improvement Amendments [...] for this test is supported by the [employer] of [employer] and Human Service's declaration that [...] used). Performed By: #### C VDTBH #### [facility] [address] [place] [address] Dr. Carole Carvalho MAGNESIUMon 07-16-2021 Magnesium [Mass/Vol] 2.4 mg/dL Normal 1.8-2.4 [facility] Comment on above: Performed By: #### M G #### [facility] [address] [place] [address] Dr. Carole Carvalho Magnesium [Mass/Vol] 2.4 mg/dL Normal 1.8-2.4 [facility] Comment on above: Performed By: #### B TOBACCO STRIPPER HAND #### [facility] [address] [place] [address] Dr. Carole Carvalho PROF 14(COMP METB)on 022 Albumin [Mass/Vol] 3.0 g/dL Critically low 3.4-5.0 [facility] Comment on above: Performed By: #### B TOBACCO STRIPPER HAND #### [facility] [address] [place] [address] Dr. Carole Carvalho Albumin/Globulin [Mass ratio] 0.8 {ratio} Normal [facility] Comment on above: Performed By: #### B TOBACCO STRIPPER HAND #### [facility] [address] [place] [address] Dr. Carole Carvalho ALP [Catalytic activity/Vol] 141 U/L Critically high 46-116 [facility] Comment on above: Performed By: #### B TOBACCO STRIPPER HAND #### [facility] [address] [place] [address] Dr. Carole Carvalho ALT [Catalytic activity/Vol] 54 U/L Normal 16-63 [facility] Comment on above: Performed By: #### B TOBACCO STRIPPER HAND #### [facility] [address] [place] [address] Dr. Carole Carvalho Anion gap [Moles/Vol] 4.7 mmol/L Normal [facility] Comment on above: Performed By: #### B TOBACCO STRIPPER HAND #### [facility] [address] [place] [address] Dr. Carole Carvalho AST [Catalytic activity/Vol] 29 U/L Normal 15-37 [facility] Comment on above: Performed By: #### B TOBACCO STRIPPER HAND #### [facility] [address] [place] [address] Dr. Carole Carvalho Bilirubin [Mass/Vol] 0.7 mg/dL Normal 0.2-1.0 [facility] Comment on above: Performed By: #### B TOBACCO STRIPPER HAND #### [facility] [address] [place] [address] Dr. Carole Carvalho Calcium [Mass/Vol] 7.9 mg/dL Critically low 8.5-10.1 Th [facility] Comment on above: Performed By: #### B TOBACCO STRIPPER HAND #### [facility] [address] [place] [address] Dr. Carole Carvalho Chloride [Moles/Vol] 96 mmol/L Critically low 98-107 [facility] Comment on above: Performed By: #### B TOBACCO STRIPPER HAND #### [facility] [address] [place] [address] Dr. Carole Carvalho CO2 [Moles/Vol] 37.4 mmol/L Critically high 21.0-32.0 [facility] Comment on above: Performed By: #### B TOBACCO STRIPPER HAND #### [facility] [address] [place] [address] Dr. Carole Carvalho Creatinine [Mass/Vol] 0.81 mg/dL Normal 0.70-1.30 [facility] Comment on above: Performed By: #### B TOBACCO STRIPPER HAND #### [facility] [address] [place] [address] Dr. Carole Carvalho EGFR-AF AUSTRALIAN >60 Normal >=60 [facility] Comment on above: Performed By: #### B TOBACCO STRIPPER HAND #### [facility] [address] [place] [address] Dr. Carole Carvalho EGFR-NON AF AUSTRALIAN >60 Normal >=60 [facility] Comment on above: Performed By: #### B TOBACCO STRIPPER HAND #### [facility] [address] [place] [address] Dr. Carole Caravlho Globulin (S) [Mass/Vol] 3.8 g/dL Normal [facility] Comment on above: Performed By: #### B TOBACCO STRIPPER HAND #### [facility] [address] [place] [address] Dr. Carole Carvalho Glucose [Mass/Vol] 132 mg/dL Critically high 74-106 [facility] Comment on above: Performed By: #### B TOBACCO STRIPPER HAND #### [facility] [address] [place] [address] Dr. Carole Carvalho Potassium [Moles/Vol] 5.1 mmol/L Normal 3.5-5.1 [facility] Comment on above: Performed By: #### B TOBACCO STRIPPER HAND #### [facility] [address] [place] [address] Dr. Carole Carvalho Protein [Mass/Vol] 6.8 g/dL Normal 6.4-8.2 [facility] Comment on above: Performed By: #### B TOBACCO STRIPPER HAND #### [facility] [address] [address] [address] Carole Carvalho Sodium [Moles/Vol] 133 mmol/L Critically low 136-145 Th [facility] Comment on above: Performed By: #### B TOBACCO STRIPPER HAND #### [facility] [address] [address] [address] Carole Carvalho Urea nitrogen [Mass/Vol] 36.0 mg/dL Critically high 7.0-18 .0 [facility] Comment on above: Performed By: #### B TOBACCO STRIPPER HAND #### [facility] [address] [address] [address] Carole Carvalho Urea nitrogen/Creatinine [Mass ratio] 44.4 mg/mg Normal [facility] Comment on above: Performed By: #### B TOBACCO STRIPPER HAND #### [facility] [address] [place] [address] Dr. Carole Carvalho TROPONIN, HIGH SENSITIVITYon 07-16-2021 HSTROP 25.3 pg/mL Normal 4.0-76.1 [facility] Comment on above: Result Comment: CUT- OFF POINTS HAVE BEEN ESTABLISHED BASED ON THE FOURTH UNIVERSAL DEFINITIONS OF MYOCARDIAL INFARCTION. THE UPPER REFERENCE LIMIT (URL) OF TROPONIN, DEFINED THE 99TH PERCENTILE OF cTnI DISTRIBUTION IN A REFERENCE POPULATION, HAS BEEN CONFIRMED THE DECISION THRESHOLD FOR [place] DIAGNOSIS. Performed By: #### B TOBACCO STRIPPER HAND #### [facility] [address] [place] [address] Dr. Carole Carvalho TSHon 07-16-2021 TSH 2.343 uIU/mL Normal 0.358-3.74 0 [facility] Comment on above: Performed By: #### L ACT #### [facility] [address] [place] [address] Dr. Carole Carvalho TSH RANGE SEE BELOW Normal [facility] Comment on above: Result Comment: <0.3 4 UIU/ml HYPERTHYROID 0.34-5.60 UIU/ml EUTHYROID >5.60 UIU/ml HYPOTHYROID Performed By: #### L ACT #### [facility] [address] [place] [address] Dr. Carole Carvalho XR CHEST 1 Von [...] by: KATE BUSH Date: 2021-07-16 13:55 Normal [facility] Vital Signs Date Time Vital Sign Value Performing Clinician Facility 04-24-2024 15:28-0500 Body height 172.7 cm Cyndi Asif OB SCRUB TECH-HOME OFFICE 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 Work Phone: [facility] 04-24-2024 15:28-0500 Body mass index (BMI) [Ratio] 27.06 kg/m2 Cyndi Asif OB SCRUB TECH-HOME OFFICE 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 Work Phone: [facility] 04-24-2024 15:28-0500 Body weight 80.74 kg Cyndi Asif OB SCRUB TECH-HOME OFFICE 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 Work Phone: [facility] 04-24-2024 15:28-0500 Diastolic blood pressure 58 mm[Hg] Cyndi Asif OB SCRUB TECH-HOME OFFICE 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 Work Phone: [facility] 04-24-2024 15:28-0500 Heart rate 117 /min Cyndi Asif OB SCRUB TECH-HOME OFFICE 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 Work Phone: [facility] 04-24-2024 15:28-0500 Systolic blood pressure 96 mm[Hg] Cyndi Asif OB SCRUB TECH-HOME OFFICE 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 Work Phone: [facility] 07-28-2023 10:04-0400 Diastolic blood pressure 78 mm[Hg] Ran Chavez MD Work Phone: [facility] 07-28-2023 10:04-0400 Heart rate 70 /min Ran Chavez MD Work Phone: [facility] 07-28-2023 10:04-0400 Systolic blood pressure 136 mm[Hg] Ran Chavez MD Work Phone: [facility] 07-28-2023 10:02-0400 Body mass index (BMI) [Ratio] 26.52 kg/m2 Ran Chavez MD Work Phone: [facility] 07-28-2023 10:02-0400 Body weight 79.11 kg Ran Chavez MD Work Phone: [facility] 07-28-2023 10:02-0400 SaO2% (BldA) [Mass fraction] 96 % Ran Chavez MD Work Phone: [facility] 06-09-2023 12:25-0400 Body height 172.7 cm Ran Chavez MD Work Phone: [facility] 06-09-2023 12:25-0400 Body mass index (BMI) [Ratio] 27.03 kg/m2 Ran Chavez MD Work Phone: [facility] 06-09-2023 12:25-0400 Body weight 80.65 kg Ran Chavez MD Work Phone: [facility] 06-09-2023 12:25-0400 Diastolic blood pressure 70 mm[Hg] Ran Chavez MD Work Phone: [facility] 06-09-2023 12:25-0400 Heart rate 105 /min Ran Chavez MD Work Phone: [facility] 06-09-2023 12:25-0400 Systolic blood pressure 113 mm[Hg] Ran Chavez MD Work Phone: [facility] 05-04-2023 15:05-0500 Body height 172.7 cm Jaziel Claudio MD Work Phone: [facility] 05-04-2023 15:05-0500 Body mass index (BMI) [Ratio] 25.85 kg/m2 Jaziel Claudio MD Work Phone: [facility] 05-04-2023 15:05-0500 Body weight 77.11 kg Jaziel Claudio MD Work Phone: [facility] 05-04-2023 15:05-0500 Diastolic blood pressure 76 mm[Hg] Jaziel Claudio MD Work Phone: [facility] 05-04-2023 15:05-0500 Heart rate 105 /min Jaziel Claudio MD Work Phone: [facility] 05-04-2023 15:05-0500 Systolic blood pressure 138 mm[Hg] Jaziel Claudio MD Work Phone: [facility] 11-10-2022 12:43-0400 Body height 172.72 cm No PCP None [facility] DO Work Phone: 11-10-2022 12:43-0400 Body mass index (BMI) [Ratio] 23.11 kg/m2 No PCP None [facility] 250 DO Work Phone: 11-10-2022 12:43-0400 Body surface area Derived from formula 1.82 m2 No PCP None [facility] DO Work Phone: 11-10-2022 12:43-0400 Body weight 68.95 kg No PCP None [facility] DO Work Phone: 11-10-2022 12:43-0400 Diastolic blood pressure 58 mm[Hg] No PCP None [facility] DO Work Phone: 11-10-2022 12:43-0400 Heart rate 77 /min No PCP None [facility] DO Work Phone: 11-10-2022 12:43-0400 Systolic blood pressure 100 mm[Hg] No PCP None [facility] DO Work Phone: 10-25-2022 10:08-0400 Body height 172.72 cm No PCP None [facility] DO Work Phone: 10-25-2022 10:08-0400 Body mass index (BMI) [Ratio] 22.5 kg/m2 No PCP None [facility] DO Work Phone: 10-25-2022 10:08-0400 Body surface area Derived from formula 1.8 m2 No PCP None [facility] 250 DO Work Phone: 10-25-2022 10:08-0400 Body weight 67.13 kg No PCP None [facility] DO Work Phone: 10-25-2022 10:08-0400 Diastolic blood pressure 84 mm[Hg] No PCP None [facility] DO Work Phone: 10-25-2022 10:08-0400 Heart rate 144 /min No PCP None [facility] DO Work Phone: 10-25-2022 10:08-0400 Systolic blood pressure 102 mm[Hg] No PCP None [facility] DO Work Phone: 09-14-2022 14:00-0400 Body weight 64.41 kg Imad Asaad Other [employer] Other 09-14-2022 14:00-0400 Diastolic blood pressure 58 mm[Hg] Imad Asaad Other [employer] Other 09-14-2022 14:00-0400 Systolic blood pressure 106 mm[Hg] Imad Asaad Other [employer] Other 07-11-2022 01:58-0400 Diastolic blood pressure 63 mm[Hg] MD Iris Holliday Work Phone: [facility] 07-11-2022 01:58-0400 Heart rate 62 /min MD Iris Holliday Work Phone: [facility] 07-11-2022 01:58-0400 Systolic blood pressure 142 mm[Hg] MD Iris Holliday Work Phone: [facility] 07-11-2022 01:56-0400 Inhaled oxygen flow rate 6 L/min MD Iris Holliday Work Phone: [facility] 07-11-2022 01:56-0400 Respiratory rate 18 /min MD Iris Holliday Work Phone: [facility] 07-11-2022 01:11-0400 Body height 172.72 cm MD Iris Holliday Work Phone: [facility] 07-11-2022 01:11-0400 Body temperature 98.6 [degF] MD Iris Holliday Work Phone: [facility] 07-11-2022 01:11-0400 Body weight 69.8 kg MD Iris Holliday Work Phone: [facility] 07-11-2022 00:50-0400 SaO2% (BldA) [Mass fraction] 96 % MD Iris Holliday Work Phone: [facility] Encounters Encounter Date Encounter Type Care Provider Facility Start: 04-27-2024 End: 04-27-2024 ambulatory Jaziel Claudio Facility:[facility] Start: 04-27-2024 Non-patient / Non-visit [facility] Start: 04-24-2024 End: 04-24-2024 Office outpatient visit 25 minutes Cyndi Dominguez Crosby OB 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-HOME OFFICE 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 Work Phone: [facility] Comment on above: High risk medication use (Primary Dx); Paroxysmal atrial fibrillation (Multi); nursing home current use of anticoagulant therapy; Pacemaker; BMI 27.0-27.9,adult; Mixed hyperlipidemia Start: 04-24-2024 End: 04-24-2024 ambulatory CYNDI [facility] Start: 01-31-2024 Non-patient / Non-visit [facility] Start: 01-27-2024 End: 01-27-2024 ambulatory Tere Ybarra Facility:[facility] Start: 10-26-2023 End: 10-26-2023 ambulatory PHYSICIAN [facility] Work Phone: Start: 10-26-2023 End: 10-26-2023 Patient encounter procedure PHYSICIAN [facility] Start: 07-28-2023 End: 07-28-2023 Office outpatient visit 25 minutes Ran Chavez MD Work Phone: [facility] Comment on above: Severe claudication (CMS-HCC) (Primary Dx); Iliac artery occlusion, bilateral (CMS-HCC) Start: 07-27-2023 End: 07-27-2023 Patient encounter procedure MD Shaikh Allen Work Phone: [facility] Start: 07-27-2023 End: 07-27-2023 ambulatory MD Shaikh Allen Work Phone: [facility] Work Phone: Start: 06-09-2023 End: 06-09-2023 [facility] Start: 06-09-2023 End: 06-09-2023 Office outpatient visit 25 minutes Ran Chavez MD Work Phone: [facility] Comment on above: Severe claudication (CMS-HCC) (Primary Dx); 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) Start: 05-04-2023 End: 05-04-[address] [facility] Start: 05-04-2023 End: 05-04-2023 Office outpatient visit 25 minutes Jaziel Claudio MD Work Phone: [facility] Comment on above: Paroxysmal atrial fi brillation (CMS/HCC) (Primary Dx); SSS (sick sinus syndrome) (CMS/HCC); nursing home current use of anticoagulant therapy; Pacemaker; BMI 25.0-25.9,adult; Former smoker Start: 03-01-2023 End: 03-01-2023 ambulatory SHAIKH TIFFANY Not Available Start: 01-25-2023 End: 01-25-2023 ambulatory MD Shaikh Allen Work Phone: [facility] Work Phone: Start: 01-25-2023 End: 01-25-2023 Patient encounter procedure MD Shaikh Allen Work Phone: [facility] Start: 11-10-2022 Office outpatient vi sit 25 minutes No PCP None [facility] DO Work Phone: Start: 11-10-2022 ambulatory Cyndi Asif Facility:1 [id number] Start: 10-25-2022 Office outpatient vi sit 25 minutes No PCP None [facility] DO Work Phone: Start: 10-25-2022 Patient encounter procedure No PCP None [facility] DO Work Phone: Start: 10-25-2022 ambulatory Cyndi Asif Facility:1 [id number] Start: 10-18-2022 Chart Update No PCP None [facility] 250 DO Work Phone: Start: 10-18-2022 ambulatory Cyndi Asif Facility:9 090 Start: 10-18-2022 End: 10-18-2022 ambulatory MD Shaikh Allen Work Phone: [facility] Work Phone: Start: 10-18-2022 End: 10-18-2022 Patient encounter procedure MD Shaikh Allen Work Phone: [facility]Pac[facility] Start: 09-14-2022 End: 09-14-2022 ambulatory Imad Asaad Other [facility] Other Start: 09-14-2022 Office outpatient ne w 45 minutes Imad Asaad [facility] Start: 07-23-2022 ambulatory DrMatt Claudio II Facility: Start: 07-19-[address] Jaziel Claudio II Facility:[id number] Start: 07-18-2022 ambulatory Cyndi Asif Facility:9 090 Start: 07-17-2022 ambulatory Cyndi Asif Facility:9 090 Start: 07-16-[address] Jaziel Claudio II Facility:[id number] Start: 07-15-2022 ambulatory Cyndiray Asif Facility:9 090 Start: 07-14-2022 ambulatory Cyndi Asif Facility:9 090 Start: 07-13-2022 ambulatory Cyndi Asif Facility:9 090 Start: 07-12-2022 ambulatory Cyndi Asif Facility:[facility] Start: 07-12-2022 ambulatory Cyndi Asif Facility:9 090 Start: 07-11-2022 ambulatory Cyndi Asif Facility:9 090 Start: 07-11-2022 ambulatory Cyndi Asif Facility:9 090 Start: 07-10-2022 Evaluation and management of inpatient MD Iris Holliday Work Phone: [facility] [place] [facility] Work Phone: Start: 12-09-2021 End: 12-09-2021 ambulatory EDISON LUDWIG [facility] Start: 11-16-2021 End: 11-17-2021 ambulatory NIVIA WAGNER Facility:H1 Start: 11-05-2021 End: 11-06-[address] KATE BUSH Facility:H1 Start: 08-14-[address] CHAPINCITO MALLORY Facility:H1 Start: 07-16-2021 End: 07-27-2021 Evaluation and management of inpatient SHAIKH Rasta CALIXTONatalie Facility:H1 Procedures Date Procedure Procedure Detail Performing Clinician Start: 04-24-2024 Ecg routine ecg w/le ast 12 lds w/i&r Cyndi Asif OB SCRUB TECH-CLEO Work Phone: Start: 05-04-2023 ECG 12-LEAD JAZIEL MIRANDA Start: 05-04-2023 Ecg routine ecg w/le ast 12 lds w/i&r Jaziel Claudio MD Work Phone: Start: 10-18-2022 Plain chest X-ray MD Eleazar Allen Work Phone: Start: 07-10-2022 Screening for occult blood in [...] Treatment Date Care Activity Detail Author Start: 10-08-2024 End: 10-08-2024 Patient encounter procedure 10/08/2024 1:00 PM EDT Office Visit [facility] [address] [address] [place] [address] Cyndi Asif, OB SCRUB TECH-HOME OFFICE 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 [address] [place] [address] [facility] Start: 08-02-2024 End: 08-02-2024 Patient encounter procedure 08/02/2024 10:00 AM EDT Office Visit [facility] [address] [place] [address] Ran Chavez MD [address] [place] [address] [facility] Start: 07-27-2024 Adult BMI Screening Adult BMI Screening [facility] Start: 07-27-2024 Tobacco Screening Tobacco Screening [facility] Start: 07-27-2024 End: 07-27-2024 US.doppler Aorta and Iliac artery - bilateral Vas aorta/iliac duplex complete Vascular Ultrasound Routine Severe claudication (CMS-HCC) Iliac artery occlusion, bilateral (CMS-HCC) Expected: 07/27/2024 (Approximate), Expires: 07/27/2024 [facility] Comment on above: Expected: 07/27/2024 (Approximate), Expi res: 07/27/2024 Start: 07-27-2024 End: 07-27-2024 US.doppler Extremity arteries - bilateral for physiologic artery study Vas art doppler lwr bilat mult lev/PVR Vascular Ultrasound Routine Severe claudication ([facility]) Expected: 07/27/2024 (Approximate), Expires: 07[facility]27[facility]2024 [facility]: Comment on above: Expected: 07/27/2024 (Approximate), Expi res: 07/27/2024 Start: 06-08-2024 Adult BMI Screening Adult BMI Screening [facility] Start: 06-08-2024 Tobacco Screening Tobacco Screening [facility] Start: 04-24-2024 End: 04-24-2025 Alanine aminotransferase [Enzymatic activity/volume] in Serum or Plasma by With P-5'-P Alanine Aminotransferase Lab Routine Paroxysmal atrial fibrillation (Multi) High risk medication use Expected: 04/24/2024 (Approximate), Expires: 04/24/2025 [facility] Work Phone: Comment on above: Expected: 04/24/2024 (Approximate), Expi res: 04/24/2025 Start: 04-24-2024 End: 04-24-2025 Basic metabolic 2000 panel - Serum or Plasma Basic Metabolic Panel Lab Routine Paroxysmal atrial fibrillation (Multi) High risk medication use Expected: 04/24/2024 (Approximate), Expires: 04/24/2025 [facility] Service Area Work Phone: Comment on above: Expected: 04/24/2024 (Approximate), Expi res: 04/24/2025 Start: 04-24-2024 End: 04-24-2025 CBC panel - Blood by Automated count CBC Lab Routine Paroxysmal atrial fibrillation (Multi) High risk medication use Expected: 04/24/2024 (Approximate), Expires: 04/24/2025 [facility] Work Phone: Comment on above: Expected: 04/24/2024 (Approximate), Expi res: 04/24/2025 Start: 04-24-2024 End: 04-24-2025 Lipid 1996 panel - Serum or Plasma Lipid Panel Lab Routine Paroxysmal atrial fibrillation (Multi) High risk medication use Expected: 04/24/2024 (Approximate), Expires: 04/24/2025 [facility] Work Phone: Comment on above: Expected: 04/24/2024 (Approximate), Expi res: 04/24/2025 Start: 04-24-2024 End: 04-24-2026 US Heart Transthoracic Transthoracic Echo Complete Echocardiography Routine Paroxysmal atrial fibrillation (Multi) Expected: 04/24/2024 (Approximate), Expires: 04/24/2026 [facility] Work Phone: Comment on above: Expected: 04/24/2024 (Approximate), Expi res: 04/24/2026 Start: 01-09-2024 End: 01-09-2024 Patient encounter procedure 01/09/2024 11:30 AM EST Office Visit [facility] [address] [place] [address] Cyndi Asif, OB SCRUB TECH-HOME OFFICE 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 [address] [place] [address] [facility] Start: 12-09-2023 End: 06-08-2024 US.doppler Aorta and Iliac artery - bilateral Vas aorta/iliac duplex complete Vascular Ultrasound Routine Severe claudication (CMS-HCC) 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) Expected: 12/09/2023 (Approximate), Expires: 06/08/2024 [facility] Comment on above: Expected: 12/09/2023 (Approximate), Expi res: 06/08/2024 Start: 10-30-2023 COVID-19 Vaccine ( season) COVID-19 Vaccine ( season) [facility] Start: 10-30-2023 Influenza vaccination [facility] Start: 07-12-2023 Echocardiography Echocardiogram [facility] Start: 07-07-2023 End: 07-07-2023 Patient encounter procedure 07/07/2023 8:50 AM EDT Office [facility] [place] [address] Ran Chavez MD [address] [address] [facility] Start: 06-09-2023 End: 06-08-2024 US.doppler Extremity arteries - bilateral for physiologic artery study Vas art doppler lwr bilat mult lev/PVR Vascular Ultrasound Routine Severe claudication ([facility]) Expected: 06/09/2023, Expires: 06/08/2024 [facility] Work Phone: Comment on above: Expected: 06/09/2023, Expires: 5 Start: 06-09-2023 End: 06-08-2024 US.doppler Lower extremity artery - bilateral Vas art duplex lwr bilateral Vascular Ultrasound Routine Severe claudication ([facility]) Expected: 06/09/2023, Expires: 06/08/2024 [facility] Comment on above: Expected: 06/09/2023, Expires: Start: 05-04-2023 FUV, Provider: Jaziel Claudio, Status: Pen, Time: 2:50 PM FUV, Provider: Jaziel Claudio, Status: Pen, Time: 2:50 PM [facility] [address] Work Phone: Start: 11-10-2022 FUV, Provider: Cyndi Polo, Status: Pen, Time: 12:30 PM FUV, Provider: Cyndi Polo, Status: Pen, Time: 12:30 PM [facility] [address] Work Phone: Start: 10-29-2022 Influenza vaccination Influenza Vaccine (#1) [facility] Start: 10-25-2022 FUV, Provider: Cyndi Polo, Status: Pen, Time: 10:00 AM FUV, Provider: Cyndi Polo, Status: Pen, Time: 10:00 AM [facility] [address] Work Phone: Start: 07-15-2022 Comprehensive metabolic 2000 panel - Serum or Plasma [facility] Start: 07-15-2022 [facility] Start: 07-14-2022 Comprehensive metabolic 1999 panel - Serum or Plasma [facility] Start: 07-14-2022 [facility] Start: 07-13-2022 Comprehensive metabolic 1999 panel - Serum or Plasma [facility] Start: 07-13-2022 [facility] Start: 07-12-2022 Comprehensive metabolic 1999 panel - Serum or Plasma [facility] Start: 07-12-2022 [facility] Start: 07-11-2022 End: 07-12-2022 [facility] Start: 07-11-2022 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 machine operator [facility] Start: 07-11-2022 Consultation [facility] Start: 07-11-2022 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 to ball assembler [facility] Start: 07-11-2022 End: 07-11-2022 [facility] Start: 07-11-2022 CT of head without contrast CT head/brain wo con [facility] Start: 07-11-2022 CT Unspecified body region WO contrast [facility] Start: 07-10-2022 End: 07-10-2022 [facility] Start: 07-10-2022 Microbial culture of sputum [facility] Start: 07-10-2022 Ultrasonography of abdomen US abdomen limited [facility] Start: 07-10-2022 Consultation [facility] Start: 07-10-2022 Hospital admission [facility] Start: 07-10-2022 Plain chest X-ray XR chest 1V portable [facility] Start: 07-10-2022 XR Chest Single view [facility] Start: 07-10-2022 CT Abdomen and Pelvis WO contrast [facility] Start: 07-10-2022 CT Chest WO contrast [facility] Start: 07-10-2022 CT of abdomen and pelvis without contrast CT abdomen pelvis wo con [facility] Start: 07-10-2022 CT of chest without contrast CT chest wo con [facility] Start: 07-10-2022 Plain chest X-ray XR chest 1V portable [facility] Start: 07-10-2022 XR Chest Single view [facility] Start: 07-10-2022 Bacteria identified in Blood by Culture [facility] Start: 07-10-2022 Bacteria identified in Urine by Culture [facility] Start: 10-05-2020 Abdominal aortic aneurysm screening Abdominal Aortic Aneurysm (AAA) Screening [facility] Start: 10-05-2020 Fall Risk Screening Fall Risk Screening [facility] Start: 2015 Hepatitis B Vaccines (1 of 3 - Risk 3-dose series) Hepatitis B Vaccines (1 of 3 - Risk 3-dose series) [facility] Start: 2015 RSV High Risk: (Elderly (60+) or Population) (1 - Risk 60-74 years 1-dose series) RSV High Risk: (Elderly (60+) or Population) (1 - Risk 60-74 years 1-dose series) [facility] Start: 10-05-2005 Administration of varicella zoster vaccine Zoster (Shingles) Vaccine (1 of 2) [facility] Start: 10-05-2005 Zoster Vaccines (1 of 2) Zoster Vaccines (1 of 2) [facility] Start: 10-05-1977 DTaP/Tdap/Td Vaccines (1 - Tdap) DTaP/Tdap/Td Vaccines (1 - Tdap) [facility] Start: 10-05-1974 DTaP,Tdap and Td Vaccines (1 - Tdap) DTaP,Tdap and Td Vaccines (1 - Tdap) [facility] Start: 10-05-1974 Hepatitis A Vaccines (1 of 2 - Risk 2-dose series) Hepatitis A Vaccines (1 of 2 - Risk 2-dose series) [facility] Start: 10-05-1974 Pneumococcal vaccination Pneumococcal Vaccine (1 of 2 - PCV) [facility] Start: 10-05-1973 Adult BMI Follow Up Plan Adult BMI Follow Up Plan [facility] Start: 10-05-1973 Diabetes mellitus screening Diabetes Screening [facility] Start: 10-05-1973 Hepatitis C screening Hepatitis C Screening [facility] Start: 1967 Depression Screening Depression Screening [facility] Start: 10-05-1961 Pneumococcal Vaccine: 65+ Years (1 - PCV) Pneumococcal Vaccine: 65+ Years (1 - PCV) [facility] Start: 04-07-1956 COVID-19 Vaccine (#1) COVID-19 Vaccine (#1) [facility] Start: 1955 Creatinine measurement Creatinine Level [facility] Start: 1955 Lipid panel Lipid Panel [facility] Start: 1955 Medicare Annual Wellness Visit [facility] Start: 1955 Potassium measurement Potassium Level [facility] Start: 1955 Screening for malignant neoplasm of colon [facility] Start: 1955 Tobacco Counseling [facility] Albumin/Globulin ratio [facility] Anion gap measurement [facility] aPTT in Platelet poo r plasma by Coagulation assay [facility] Basophils [#/volume] in Blood by Automated count [facility] Basophils/100 leukoc ytes in Blood by Automated count [facility] ECG 12 Lead ECG 12 Lead ECG Routine High risk medication use 04/24/2024 3:30 PM EST [facility] Work Phone: Eosinophils [#/volum e] in Blood [facility] Eosinophils [Presenc e] in Urine sediment by Dodge stain [facility] Eosinophils/100 leuk ocytes in Blood by Automated count [facility] Erythrocyte distribu tion width [Ratio] by Automated count [facility] Erythrocytes [#/volu me] in Blood [facility] Globulin [Mass/volum e] in Serum [facility] Hematocrit [Volume Fraction] of Blood [facility] Hemoglobin [Mass/vol ume] in Blood [facility] INR in Platelet poor plasma by Coagulation assay [facility] Leukocytes [#/volume ] corrected for nucleated erythrocytes in Blood by Automated coun [facility] Leukocytes [#/volume ] in Blood [facility] Lymphocytes [#/volum e] in Blood by Automated count [facility] Lymphocytes/100 leuk ocytes in Blood by Automated count [facility] MCH [Entitic mass] b y Automated count [facility] MCHC [Mass/volume] b y Automated count [facility] MCV [Entitic volume] by Automated count [facility] Monocytes [#/volume] in Blood by Automated count [facility] Monocytes/100 leukoc ytes in Blood by Automated count [facility] Neutrophils [#/volum e] in Blood by Automated count [facility] Neutrophils/100 leuk ocytes in Blood by Automated count [facility] Nucleated erythrocyt es [Presence] in Blood by Automated count [facility] Platelet mean volume [Entitic volume] in Blood by Automated count [facility] Platelets [#/volume] in Blood [facility] Payers Date Payer Category Payer Medicare [id number] 1959 Medicaid [id number] 1959 Medicare [id number] 1959 Self-pay 1955 Unknown [id number] 2.16.84 0.1.918843.3.579.2.593 1955 Unknown [id number] 2.16.84 0.1.746800.3.579.2.593 1955 Unknown [id number] 2.16.84 0.1.320345.3.579.2.593 1955 Unknown [id number] 2.16.84 0.1.145148.3.579.2.593 1955 Unknown [id number] 2.. 840.1.665214.3.579.2.356 1955 Unknown [id number] 2.16. 840.1.279042.3.579.2.356 1955 Unknown [id number] 2.16. 840.1.092024.3.579.2.356 1955 Unknown [id number] 2.16. 840.1.640032.3.579.2.356 1955 Unknown [id number] 2.16. 840.1.231727.3.579.2.356 1955 Unknown [id number] 2.16. 840.1.242106.3.579.2.356 1955 Unknown [id number] 2.16. 840.1.970665.3.579.2.356 1955 Unknown [id number] 2.16. 840.1.852304.3.579.2.356 1955 Unknown [id number] 2.16. 840.1.589909.3.579.2.356 1955 Unknown [id number] 2.16. 840.1.985327.3.579.2.356 1955 Unknown [id number] 2.16. 840.1.923207.3.579.2.356 1955 Unknown [id number] 2.. 840.1.697377.3.579.2.356 1955 Unknown [id number] 2. 840.1.508907.3.579.2.356 1955 Unknown [id number] 2. 840.1.907464.3.579.2.356 1955 Unknown [id number] 2.840 .1.045342.3.579.2.1259 1955 Unknown [id number] 04.15. 40.1.403388.3.579.2.1286 1955 Unknown [id number] 2. 840.1.996047.3.579.2.1244 1955 Unknown [id number] 40.1.228550.3.579.2.1244 Medicare Medicare [id number] Unknown Unknown [id number] Unknown [id number] 2.16.8 40.1.332924.3.579.2.531 Unknown [id number] 2.16.8 40.1.774026.3.579.2.531 Unknown [id number] .16.8 40.1.994043.3.579.2.531 Unknown [id number] 2.16.8 40.1.712647.3.579.2.531 Social History Date Type Detail Facility Start: 07-11-2022 End: 07-16-2022 Tobacco smoking status NHIS Never smoked tobacco (finding) [facility] Start: 1955 Sex Assigned At Male F [facility] Start: 05-04-2023 End: 04-24-2024 Sex Assigned At [facility] Other Start: 05-04-2023 End: 04-24-2024 Occasional alcohol use Occasional alcohol use -[facility] [address] DO Work Phone: Comment on above: 3-4 beers weekly; Start: 05-04-2023 End: 04-24-2024 Tobacco smoking status NHIS Ex-smoker [facility] End: 06-28-2022 History of tobacco use Current smoker [facility] Work Phone: Start: 06-08-1978 End: 06-28-2022 History of tobacco use Cigarette Smoker [facility] Work Phone: Start: 05-04-2023 End: 04-24-2024 Tobacco use and exposure Smokeless tobacco non-user [facility] Work Phone: Start: 05-04-2023 End: 04-24-2024 Alcohol intake Current drinker of alcohol (finding) [facility] Work Phone: Start: 1955 [facility] Start: 04-24-2023 End: 04-24-2024 Exposure to SARS-CoV-2 (event) Not sure [facility] Start: 06-08-1978 Tobacco smoking stat us NHIS Smokes tobacco daily [facility] Unknown [facility] Start: 04-28-2024 Sex Male (finding) [facility] Medical Equipment Procedure Code Equipment Code Equipment Origin al Text Equipment Identifier Dates Insertion, pacemaker Endocardial pacing lead [id number] FDA Start: 07-16-2022 Insertion, pacemaker Endocardial pacing lead [id number] FDA Start: 07-16-2022 Insertion, pacemaker Dual-chamber implantable pacemaker, rate-responsive [id number] FDA Start: 07-16-2022 Goals Date Patient Goal Desired Activity /State Functional Status Date Assessment Result Facility 07-11-2022 Functional status Patient Not at Baseline [facility] Work Phone: Mental Status Date Assessment Result Facility 07-11-2022 Cognitive function Cognitive Sta tus Patient Not at Baseline [facility] Work Phone: Clinical Notes 12-09-2021 to 04-25-2024 Assessment & Plan Note - PETER Montanez - 04/25/2024 11:00 AM ESTAssessment & Plan Note - PETER Montanez - 04/25/2024 11:00 AM ESTPatient InstructionsPatient Instructions Note Date & Type Note Facility 04-25-2024 Evaluation + Plan note Associated Problem(s): Cardiac and Vasculature Reports remote stress testing. June 2022 TTE LVEF 65-70% RV dilation with severe hypokinesis distal RCA. Right bundle branch block and left anterior fascicular block Prior iliac stenting-follows with local vascular. [facility] Work Phone: 04-25-2024 Miscellaneous Notes Associated Problem(s): Cardiac and Vasculature Reports remote stress testing. June 2022 TTE LVEF 65-70% RV dilation with severe hypokinesis distal RCA. Right bundle branch block and left anterior fascicular block Prior iliac stenting-follows with local vascular. Associated Problem(s): Mixed hyperlipidemia Moderate intensity statin Associated Problem(s): BMI 27.0-27.9,adult Weight is up 8 pounds today. 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 Right bundle branch block CR - labs ordered documented in this encounter [facility] Work Phone: 04-25-2024 Evaluation + Plan note Associated Problem(s): Mixed hyperlipidemia Moderate intensity statin [facility] Work Phone: 04-25-2024 Evaluation + Plan note Associated Problem(s): BMI 27.0-27.9,adult Weight is up 8 pounds today. [facility] Work Phone: 04-25-2024 Evaluation + Plan note Associated Problem(s): nursing home current use of anticoagulant therapy CHADS VASc 2 chronically anticoagulated full dose Eliquis (age 68, wt 80kg) Denies bleeding diathesis [facility] Work Phone: 04-25-2024 Evaluation + Plan note Associated Problem(s): Paroxysmal atrial fibrillation (Multi) Diagnosis June 2022 and placed on dofetilide Device interrogations with 5 % mode switching Asymptomatic ECG ST in office today (was not wearing oxygen on ride into office) [facility] Work Phone: 04-25-2024 Evaluation + Plan note Associated Problem(s): Pacemaker SJM 2272 dual chamber PPM Dec 2023 device interrogation [facility] Work Phone: 04-25-2024 Evaluation + Plan note Associated Problem(s): High risk medication use Dofetilide start date June [address], QTC 474. Right bundle branch block CR - labs ordered [facility] Work Phone: 04-24-2024 History of Presen t illness Narrative Chief Complaint I think I am doing fine Reason for Visit Annual follow-up Patient presents to the office today for outpatient follow-up for atrial fibrillation, high risk med use. Last evaluated in clinic by Dr. Bradley April 2023. Presents today ambulatory with steady gait. Is utilizing oxygen. Accompanied by patient Patient denies any hospitalizations or significant changes to interval medical history since last office follow-up. He denies routine PCP follow-up. I believe he does see vascular. History of Present Illness Patient is a pleasant 68-year-old gentleman who presents to the office today with baseline functional class III shortness of breath related to underlying pulmonary disease. He utilizes oxygen continuously greater than 1 year now. He inadvertently did not have the oxygen tank turned on on the drive over and was a little more short of breath and tachycardic to usual when he arrived into the office. He reports his garage is a 300 feet walk from his house and he can make that without problems . Sometimes he will notice his heart rate is elevated; in the office today heart rate in the 110s and he is asymptomatic. He denies worsening of his functional class III shortness of breath, he sleeps in a recliner for comfort. Performs his own ADLs without concerns. He has an 8 pound weight gain without lower extremity edema, reports increased abdominal girth. Mild early satiety but no real change in appetite. June 2022 echo showed RV dilatation but reported to have normal RV function. Has appearance of cor pulmonale on exam today. He reports being compliant with Lasix usage. Discussed repeat echocardiogram to reassess RV function and LVEF. Due to underlying pulmonary disease he always has baseline heart rate in the 90s to low 100s. He is on low-dose Toprol and have tried to avoid high percent of RV pacing in the past. V paced < 1%. He is also due for repeat lab work due to high risk med use. Daily activity is right about 4 METS. He has no exertional chest pain. Reports remote stress testing. Will reassess echo for cardiomyopathy or wall motion abnormality. Otherwise, risk factors including optimally controlled hypertension, hyperlipidemia. No diabetes. Patient reports that overall has no complaint(s) of chest pain, chest pressure/discomfort, exertional chest pressure/discomfort, fatigue, and lower extremity edema Daily activity: 4 METs Denies any change in exercise capacity or functional tolerance since last office visit. The importance of primary prevention reviewed: HTN: Optimal in office HLD: Treated due for labs DM: Denies Smoker: Denies BMI: Reviewed the merits of healthy lifestyle choices on overall cardiovascular health. Review of Systems Cardiovascular: Negative for chest pain, dyspnea on exertion, irregular heartbeat, leg swelling, near-syncope, orthopnea, palpitations, paroxysmal nocturnal dyspnea and syncope. Respiratory: Positive for shortness of breath. Visit Vitals BP 96/58 (BP Location: Left arm, Patient Position: Sitting) Pulse (!) 117 Ht 1.727 m (5' 8 ) Wt 80.7 kg (178 lb) BMI 27.06 kg/m Smoking Status Former BSA 1.97 m Physical Exam Vitals and nursing note reviewed. Constitutional: Appearance: Normal appearance. Cardiovascular: Rate and Rhythm: Regular rhythm. Tachycardia present. Heart sounds: Normal heart sounds. Pulmonary: Effort: Pulmonary effort is normal. Breath sounds: Examination of the left-lower field reveals wheezing. Wheezing present. Musculoskeletal: Cervical back: Full passive range of motion without pain. Right lower leg: No edema. Left lower leg: No edema. Skin: General: Skin is cool. Neurological: Mental Status: He is alert and oriented to person, place, and time. Psychiatric: Attention and Perception: Attention normal. Mood and Affect: Mood normal. Behavior: Behavior is cooperative. Allergies Allergen Reactions Codeine Other Current Outpatient Medications Medication Instructions apixaban (ELIQUIS) 5 mg, oral, 2 times daily atorvastatin (LIPITOR) 40 mg, Daily dofetilide (Tikosyn) 250 mcg capsule oral, 2 times daily furosemide (LASIX) 20 mg, oral, Daily metoprolol succinate XL (TOPROL-XL) 25 mg, oral, Daily oxygen (O2) gas therapy 1 each, Continuous Assessment: High risk medication use Dofetilide start date June [address], QTC 474. 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 Mixed hyperlipidemia Moderate intensity statin Cardiac and Vasculature Reports remote stress testing. June 2022 TTE LVEF 65-70% RV dilation with severe hypokinesis distal RCA. Right bundle branch block and left anterior fascicular block Prior iliac stenting-follows with local vascular. Appearance of cor pulmonale with mild RV volume overload with increased abdominal girth, early satiety. -Encourage compliance with daily Lasix. Heart rate 88 after sitting if office 10 minutes. Plan: Through informed decision making process incorporating patients unique circumstances, the following treatment plan will be initiated: 1. Prescription drug management of cardiovascular medication for efficacy, adherence to treatment, side effect assessment and polypharmacy. Current treatment clinically warranted and to continue without modifications. 2. Annual labs (lipids, chem6, cbc) 3. Echo (SOB, fluid retention) 4. Return for follow-up; in the interim, contact the office if new symptoms arise. TOBACCO STRIPPER HAND 6 months Cyndi Asif MSN, KATHRYNHOME OFFICE 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, PMHNP-[facility] Please excuse any errors in grammar or translation related to this dictation. Voice recognition software was utilized to prepare this document. documented in this encounter [facility] Work Phone: 04-24-2024 Instructions PETER Montanez - 04/24/2024 3:30 PM EST Please bring all medicines, vitamins, [...] warranted and to continue without modifications. 2. Annual labs (lipids, chem6, cbc) 3. Echo (SOB, fluid retention) 4. Return for follow-up; in the interim, contact the office if new symptoms arise. 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 He has patent iliac stent. He has infrainguinal disease. The claudication is not significant to indicate intervention. Recommend walking and exercise. He does not smoke. [facility] 07-28-2023 Miscellaneous Notes Associated Problem(s): Severe claudication (CMS-HCC) I am add doing aspirin and statin to his medication. He has patent iliac stent. He has infrainguinal disease. The claudication is not significant to indicate intervention. Recommend walking and exercise. He does not smoke. documented in this encounter [facility] 07-28-2023 History of Presen t illness Narrative Images from the original note were not included. To: No primary care provider on file. HPI: Jaime Lechuga is a 67 y.o. male with History of claudication and iliac stenting infrarenal inguinal occlusive disease. He is here with surveillance testing. Stent in the iliac is patent he has infrainguinal occlusive disease at the level of the SFA. He does not have significant claudication that would require intervention. He does not take aspirin or statin. He does not smoke.No ulcers or rest pain.. Review of Systems: Review of Systems Constitutional: Negative. HENT: Negative. Respiratory: Negative. Cardiovascular: Negative. Gastrointestinal: Negative. Endocrine: Negative. Genitourinary: Negative. Musculoskeletal: Negative. Skin: Negative. Neurological: Negative. Hematological: Negative. Medications: Current Outpatient Medications on File Prior to Visit Medication Sig Dispense Refill dilTIAZem (TIAZAC) 180 MG 24 hr capsule Take 1 capsule (180 mg total) by mouth in the morning. ELIQUIS 5 mg tablet Take 1 tablet (5 mg total) by mouth in the morning and 1 tablet (5 mg total) before bedtime. metoprolol tartrate (LOPRESSOR) 25 mg tablet Take 1 tablet (25 mg total) by mouth in the morning and 1 tablet (25 mg total) in the evening. Take with meals. aspirin 325 mg tablet Take 1 tablet (325 mg total) by mouth in the morning. (Patient not taking: Reported on 11/11/2022) clopidogreL (PLAVIX) 75 mg tablet TAKE 1 TABLET BY MOUTH IN THE MORNING (Patient not taking: Reported on 06/09/2023) 90 tablet 3 digoxin (LANOXIN) 125 mcg tablet Take 1 tablet (125 mcg total) by mouth in the morning. (Patient not taking: Reported on 06/09/2023) dofetilide (TIKOSYN) 250 MCG capsule Take 1 capsule (250 mcg total) by mouth in the morning and 1 capsule (250 mcg total) before bedtime. (Patient not taking: Reported on 07/28/2023) furosemide (LASIX) 20 mg tablet Take 1 tablet (20 mg total) by mouth daily. (Patient not taking: Reported on 07/28/2023) omeprazole (PriLOSEC) 40 mg capsule TAKE 1 CAPSULE BY MOUTH ONCE DAILY ON AN EMPTY STOMACH (Patient not taking: Reported on 07/28/2023) sertraline (ZOLOFT) 25 mg tablet Take 1 tablet (25 mg total) by mouth in the morning. (Patient not taking: Reported on 07/28/2023) No current facility-administered medications on file prior to visit. Past Medical History: Past Medical History: Diagnosis Date Deep vein thrombosis ([facility]) Past Surgical History: Past Surgical History: Procedure Laterality Date OTHER SURGICAL HISTORY stent placement in pelvic are left side Social and Family History: Social History Socioeconomic History Marital status: Significant Other Spouse name: Not on file Number of children: Not on file Years of education: Not on file Highest education level: Not on file Occupational History Not on file Tobacco Use Smoking status: Every Day Current packs/day: 0.50 Average packs/day: 0.5 packs/day for 45.1 years (22.6 ttl pk-yrs) Types: Cigarettes Start date: 06/08/1978 Smokeless tobacco: Never Vaping Use Vaping status: Never Used Substance and Sexual Activity Alcohol use: Yes Alcohol/week: 8.0 standard drinks of alcohol Types: 8 Cans of beer per week Drug use: Never Sexual activity: Defer Other Topics Concern Not on file Social History Narrative Not on file Social Determinants of Health Financial Resource Strain: Not on file Food Insecurity: No Food Insecurity (07/28/2023) Hunger Screening Food Insecurity - Worry: Never True Food Insecurity - Inability: Never True Transportation Needs: Not on file Physical Activity: Not on file Stress: Not on file Social Connections: Not on file Interpersonal Safety: Unknown (04/21/2023) Received from [facility] Safety & Environment Fear of Current or Ex-Partner: Not on file Emotionally Abused: Not on file Physically Abused: Not on file Sexually Abused: Not on file Physically or Sexually Abused: Not on file Housing Instability: Not on file History reviewed. No pertinent family history. Recent Labs: Recent and relative labs were reviewed and interpreted and contributed to the assessment and plan below. Vitals: BP 136/78 (BP Site: Right Arm, BP Postition: Sitting, BP CUFF SIZE: M (9-13 inches)) Pulse 70 Wt 79.1 kg (174 lb 6.4 oz) SpO2 96% BMI 26.52 kg/m Body mass index is 26.52 kg/m . Physical Exam: Physical Exam Constitutional: Appearance: Normal appearance. HENT: Head: Normocephalic and atraumatic. Mouth/Throat: Mouth: Mucous membranes are moist. Eyes: Extraocular Movements: Extraocular movements intact. Pupils: Pupils are equal, round, and reactive to light. Cardiovascular: Rate and Rhythm: Normal rate and regular rhythm. Pulmonary: Effort: Pulmonary effort is normal. Breath sounds: Normal breath sounds. Abdominal: General: Abdomen is flat. Bowel sounds are normal. Palpations: Abdomen is soft. Musculoskeletal: General: Normal range of motion. Cervical back: Normal range of motion. Skin: General: Skin is warm and dry. Neurological: General: No focal deficit present. Mental Status: He is alert and oriented to person, place, and time. Mental status is at baseline. Psychiatric: Mood and Affect: Mood normal. Behavior: Behavior normal. Thought Content: Thought content normal. Judgment: Judgment normal. Recent testing: Assessment and Plan: Problem List Severe claudication (CMS-HCC) - Primary Current Assessment & Plan I am add doing aspirin and statin to his medication. He has patent iliac stent. He has infrainguinal disease. The claudication is not significant to indicate intervention. Recommend walking and exercise. He does not smoke. Relevant Medications aspirin 81 mg chewable tablet atorvastatin (LIPITOR) 40 mg tablet Other Relevant Orders Vas art doppler lwr bilat mult lev/PVR Vas aorta/iliac duplex complete Jaime was seen today for claudication and peripheral artery disease. Diagnoses and all orders for this visit: Severe claudication (CMS-HCC) - aspirin 81 mg chewable tablet; Chew 1 tablet (81 mg total) and swallow in the morning. - atorvastatin (LIPITOR) 40 mg tablet; Take 1 tablet (40 mg total) by mouth in the morning. - Vas art doppler lwr bilat mult lev/PVR; Future - Vas aorta/iliac duplex complete; Future Iliac artery occlusion, bilateral (CMS-HCC) - Vas aorta/iliac duplex complete; Future Ran Chavez MD, MAKAYLA, RPVI, FSVS, FACS [facility] This note was created with the assistance of a speech recognition program. While intending to generate a timely document that accurately reflects the content of the visit, no guarantee can be provided that every grammatical or spelling mistake has been or will be identified or corrected. Thank you for your understanding. documented in this encounter [facility] 06-09-2023 Evaluation + Plan note Associated Problem(s): Severe claudication (CMS-HCC) 67-year-old gentleman with multiple vascular procedures in the past iliac stent in the left side and bilateral lower extremity bypasses. He does not have any recent testing. He is on aspirin Plavix and statin. We will get PVR and continue aspirin Plavix and statin. I recommended continued to stay active with walking [facility]23 Miscellaneous Notes Associated Problem(s): Severe claudication ([facility]-HCC) 67-year-old gentleman with multiple vascular procedures in the past iliac stent in the left side and bilateral lower extremity bypasses. He does not have any recent testing. He is on aspirin Plavix and statin. We will get PVR and continue aspirin Plavix and statin. I recommended continued to stay active with walking [facility] History of Presen t illness Narrative Images from the original note were not included. To: No primary care provider on file. HPI: Jaime Lechuga is a 67 y.o. male with 67-year-old gentleman with multiple vascular procedures in the past iliac stent in the left side and bilateral lower extremity bypasses. He does not have any recent testing. He is on aspirin Plavix and statin.. Review of Systems: Review of Systems Constitutional: Negative. HENT: Negative. Respiratory: Negative. Cardiovascular: Negative. Gastrointestinal: Negative. Endocrine: Negative. Genitourinary: Negative. Musculoskeletal: Negative. Skin: Negative. Neurological: Negative. Hematological: Negative. Medications: Current Outpatient Medications on File Prior to Visit Medication Sig Dispense Refill dofetilide (TIKOSYN) 250 MCG capsule Take 1 capsule (250 mcg total) by mouth in the morning and 1 capsule (250 mcg total) before bedtime. ELIQUIS 5 mg tablet Take 1 tablet (5 mg total) by mouth in the morning and 1 tablet (5 mg total) before bedtime. furosemide (LASIX) 20 mg tablet Take 1 tablet (20 mg total) by mouth daily. metoprolol tartrate (LOPRESSOR) 25 mg tablet Take 1 tablet (25 mg total) by mouth in the morning and 1 tablet (25 mg total) in the evening. Take with meals. omeprazole (PriLOSEC) 40 mg capsule TAKE 1 CAPSULE BY MOUTH ONCE DAILY ON AN EMPTY STOMACH sertraline (ZOLOFT) 25 mg tablet Take 1 tablet (25 mg total) by mouth in the morning. aspirin 325 mg tablet Take 1 tablet (325 mg total) by mouth in the morning. (Patient not taking: Reported on 11/11/2022) clopidogreL (PLAVIX) 75 mg tablet TAKE 1 TABLET BY MOUTH IN THE MORNING (Patient not taking: Reported on 06/09/2023) 90 tablet 3 digoxin (LANOXIN) 125 mcg tablet Take 1 tablet (125 mcg total) by mouth in the morning. (Patient not taking: Reported on 06/09/2023) dilTIAZem (TIAZAC) 180 MG 24 hr capsule Take 1 capsule (180 mg total) by mouth in the morning. (Patient not taking: Reported on 06/09/2023) No current facility-administered medications on file prior to visit. Past Medical History: Past Medical History: Diagnosis Date Deep vein thrombosis ([facility]) Past Surgical History: Past Surgical History: Procedure Laterality Date OTHER SURGICAL HISTORY stent placement in pelvic are left side Social and Family History: Social History Socioeconomic History Marital status: Significant Other Spouse name: Not on file Number of children: Not on file Years of education: Not on file Highest education level: Not on file Occupational History Not on file Tobacco Use Smoking status: Every Day Current packs/day: 0.50 Average packs/day: 0.5 packs/day for 45.0 years (22.5 ttl pk-yrs) Types: Cigarettes Start date: 06/08/1978 Smokeless tobacco: Never Vaping Use Vaping status: Never Used Substance and Sexual Activity Alcohol use: Yes Alcohol/week: 8.0 standard drinks of alcohol Types: 8 Cans of beer per week Drug use: Never Sexual activity: Defer Other Topics Concern Not on file Social History Narrative Not on file Social Determinants of Health Financial Resource Strain: Not on file Food Insecurity: No Food Insecurity (06/09/2023) Hunger Screening Food Insecurity - Worry: Never True Food Insecurity - Inability: Never True Transportation Needs: Not on file Physical Activity: Not on file Stress: Not on file Social Connections: Not on file Interpersonal Safety: Unknown (04/21/2023) [facility] Safety & Environment Fear of Current or Ex-Partner: Not on file Emotionally Abused: Not on file Physically Abused: Not on file Sexually Abused: Not on file Physically or Sexually Abused: Not on file Housing Instability: Not on file History reviewed. No pertinent family history. Recent Labs: Recent and relative labs were reviewed and interpreted and contributed to the assessment and plan below. Vitals: BP 113/70 (BP Site: Left Arm, BP Postition: Sitting, BP CUFF SIZE: L (13-17 inches)) Pulse 105 Ht 172.7 cm (5' 8 ) Wt 80.6 kg (177 lb 12.8 oz) BMI 27.03 kg/m Body mass index is 27.03 kg/m . Physical Exam: Physical Exam Constitutional: Appearance: Normal appearance. HENT: Head: Normocephalic and atraumatic. Mouth/Throat: Mouth: Mucous membranes are moist. Eyes: Extraocular Movements: Extraocular movements intact. Pupils: Pupils are equal, round, and reactive to light. Cardiovascular: Rate and Rhythm: Normal rate and regular rhythm. Pulmonary: Effort: Pulmonary effort is normal. Breath sounds: Normal breath sounds. Abdominal: General: Abdomen is flat. Bowel sounds are normal. Palpations: Abdomen is soft. Musculoskeletal: General: Normal range of motion. Cervical back: Normal range of motion. Skin: General: Skin is warm and dry. Neurological: General: No focal deficit present. Mental Status: He is alert and oriented to person, place, and time. Mental status is at baseline. Psychiatric: Mood and Affect: Mood normal. Behavior: Behavior normal. Thought Content: Thought content normal. Judgment: Judgment normal. Recent testing: Assessment and Plan: Problem List Nervous and Auditory Severe claudication (CMS-HCC) - Primary Current Assessment & Plan 67-year-old gentleman with multiple vascular procedures in the past iliac stent in the left side and bilateral lower extremity bypasses. He does not have any recent testing. He is on aspirin Plavix and statin. We will get PVR and continue aspirin Plavix and statin. I recommended continued to stay active with walking Relevant Orders Vas art doppler lwr bilat mult lev/PVR Vas art duplex lwr bilateral Vas aorta/iliac duplex nate Sandoval was seen today for claudication. 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 While intending to generate a timely document that accurately reflects the content of the visit, no guarantee can be provided that every grammatical or spelling mistake has been or will be identified or corrected. Thank you for your understanding. documented in this encounter [facility] 05-04-2023 History of Presen t illness Narrative Roxann Lechuga is a 67 y.o. male Chief [...] syndrome) (CMS/HCC) Mitigated with pacemaker implant. 3. nursing home current use of anticoagulant therapy Well-tolerated. Necessary and/or appropriate to mitigate stroke risk. 4. Pacemaker Device checks are reviewed and performance of device is adequate Scribe Attestation By signing my name below, Brigida Mendez LPN , Scribe attest that this documentation has been prepared under the direction and in the presence of Jaziel Claudio MD. Provider Attestation - Scribe documentation All medical record entries made by the Scribe were at my direction and personally dictated by me. I have reviewed the chart and agree that the record accurately reflects my personal performance of the history, physical exam, discussion and plan. documented in this encounter [facility] Work Phone: 05-04-2023 Instructions Brigida Hernandez LPN [...] up per routine documented in this encounter [facility] Work Phone: 09-14-2022 Evaluation note Encounter Date Diagnosis Assessment Notes Aug, Anemia (ICD-10 - D64.9) [facility] Other 05-14-2023 History and physical note Author Iris Lassiter [facility] July 11, 2022 1:36am Note Date/Time July 10, 2022 11:05 pm [facility] [address] [place] [address] Hospitalist H&P Signed Patient: Jaime Lechuga MR#: [id number] : 1955 Acct:[id number] Age/Sex: 66 / M Adm Date: 3 Loc: Room: [address] [place] [address] Type: ADM IN Attending Dr: Iris Lassiter [...] 19:28 Hgb 7.9 g/dL (13.0-17.0) L 07/10/22 19: Hct 26.7 % (38.8-50.0) L 07/10/22 19: MCV 80.0 fl (83.5-101) L 07/10/22 19: MCH 23.6 pg (27.5-35.2) L 07/10/22 19: MCHC 29.5 g/dL (32.5-35.6) L 07/10/22 19: RDW 18.0 % (12.0-14.8) H 07/10/22 19: Plt Count 180 x10E3/uL (150-450) 07/10/22 19: MPV 9.9 fl (6.6-10.1) 07/10/22 19:28 Neut % (Auto) 82.1 % (.) 07/10/22 19: Lymph % (Auto) 7.3 % (.) 07/10/22 19: [place] % (Auto) 10.0 % (.) 07/10/22 19: Eos % (Auto) 0.0 % (.) 07/10/22 19: Baso % (Auto) 0.6 % (.) 07/10/22 19: Nucleat RBC Rel Count 1.7 /100 WBC (0-0.5) H 07/10/22 19:28 Neut # (Auto) 10.5 x10E3/uL (1.8-7.7) H 07/10/22 19:28 Lymph # (Auto) 0.9 x10E3/uL (1.00-4.8) L 07/10/22 19:28 [place] # (Auto) 1.3 x10E3/uL (0.0-0.8) H 07/10/22 [...] 20:31 ABG HCO3 25.7 mmol/L (23.0-29.0) 07/10/22 20: ABG Total CO2 27.1 mmol/L (23.0-27.0) H [...] 19:28 ALT 615 U/L (7-52) H 07/10/22 19:28 Alkaline Phosphatase 235 U/L (34-104) H 07/10/22 19:28 Total Creatine Kinase 53 U/L (30-223) 07/10/22 19:28 Troponin I High Sens 48.3 pg/mL (0.0-20.0) H 07/10/22 19: Total Protein 6.5 gm/dL (6.4-8.9) 07/10/22 19: Albumin 3.3 gm/dL (3.5-5.7) L 07/10/22: Globulin 3.2 gm/dL 07/10/22: Albumin/Globulin Ratio 1.0 07/10/22: TSH 3rd Generation 2.96 uIU/mL (0.45-5.33) 07/10/22 19: Urine Color Dark yellow (Yellow) A 07/10/22: Urine Appearance Cloudy (Clear) A 07/10/22: Urine pH 5.0 (5.0-9.0) 07/10/22: Ur Specific [place] 1.020 (1.001-1.030) 07/10/22 22: Urine Protein 100 mg/dL (Negative) H 07/10/22 22: Urine Glucose (UA) Normal mg/dL (Normal) 07/10/22: Urine Ketones Trace (Negative) H 07/10/22 22: Urine Occult Blood Negative (Negative) 07/10/22 22: Urine Nitrite Negative (Negative) 07/10/22: Urine Bilirubin 1+ (Negative) H 07/10/22 22: Urine Urobilinogen Normal mg/dL (Normal) 07/10/22 22: Ur Leukocyte Esterase 1+ (Negative) H 07/10/22 22: Urine RBC 5-9 /HPF (0-4) H 07/10/22 22: Urine WBC 5-9 /HPF (0-4) H 07/10/22 22: Ur Squamous Epith Cells 3-4 /HPF (0-2) H 07/10/22 22: Urine Bacteria None seen (None Seen) 07/10/22: Hyaline Casts 9-19 /LPF (0-8) H 07/10/22: Digoxin 1.5 ng/mL (0.9-2.0) 07/10/22 19:28 Blood Type A Positive 07/10/22 19:35 Blood Type Recheck A Positive 07/10/22 20:02 Antibody Screen Negative 05/13/23 19:35 Microbiology Results Micro: Microbiology - Results [...] signed by Iris Lassiter DO> 07/11/22 [address] [facility] Work Phone: [phone] 643-630210-12-2022 [id number] discussion with patient regarding importance of smoking cessation he voiced understanding and states he will try to quit smoking again in light he is only smoking 4 to 5 cigarettes a dayUnTri[facility] 12-09-2021 NoteNYHC II-currently euvolemic without exacerbation Continue goal-directed medical therapy-he has not needed any diuresis. Continue fluid restriction 1-1/2 to 2 L/day, low-sodium diet, daily weights discussed with patient when to call office for concerns of increased weight, increased shortness of breath or orthopnea or any other concerns and he voiced understandingUnTriHealth [facility] Samar[facility]10-12-2022 NoteNo concerning symptoms today, strongly recommended to continue medication regimen and to quit smokingUnTriHealth [facility] Samar[facility]10-12-2022 Note [id number]= 4 age, HTN, CHF, vascular disease Continue eliquis anticoagualtion- denied bleeding tendencies Currently in rhythm per assessment Continue diltiazem, digoxin and metoprolol as prescribedUnTriHealth Good Samar[facility]10-12-2022 NoteHPI: Jaime Lechuga is a 66 [...] Echo 07/17/21 Assessment/Plan: Paroxysmal atrial fibrillation (CMS/HCC) [id number]= 4 age, HTN, CHF, vascular disease Continue eliquis anticoagualtion- denied bleeding tendencies Currently in rhythm per assessment Continue diltiazem, digoxin and metoprolol as prescribed Peripheral vascular disease (CMS/HCC) No concerning symptoms today, strongly recommended to continue medication regimen and to quit smoking Chronic diastolic heart failure (CMS/HCC) [facility] II-currently euvolemic without exacerbation Continue [...] to 1 year unless he has [facility] NoteSubjective Jaime Lechuga is a [...] Lab Review: Assessment/Plan There were no encounter diagnoses.[facility]* Diagnosis Onset Date Resolution Status Acidosis, lactic acute Elevated troponin acute Hypotension acute Hypoxemia acute Junctional bradycardia acute Renal insufficiency acute [facility] Work Phone: Evaluation noteNo assessment information available [facility] Work Phone: evaluation note* Diagnosis Paroxysmal atrial fibrillation (CMS/HCC)- Primary Atrial fibrillation SSS (sick sinus syndrome) (CMS/HCC) Sinoatrial node dysfunction nursing home current use of anticoagulant therapy Pacemaker Cardiac pacemaker in situ BMI 25.0-25.9,adult Former smoker Personal history of tobacco use, presenting hazards to health documented in this encounter [facility] Work Phone: Evaluation note* Diagnosis Severe claudication (CMS-HCC)- Primary Iliac artery occlusion, 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 [facility] Diagnosis Severe claudication (CMS-HCC)- Primary 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) [facility] High risk medication use- Primary Paroxysmal atrial fibrillation (Multi) Atrial fibrillation nursing home current use of anticoagulant therapy Pacemaker Cardiac pacemaker in situ BMI 27.0-27.9,adult Mixed hyperlipidemia documented in this encounter [facility] Work Phone: History general Narrative - Reported* Type Description Date Medical History hernia Medical History pacemaker Medical History COPD Medical History ILIAC STENT PLACEMENT Medical History RECTAL FISTULA Surgical History hernia repair Surgical History ILIAC STENT PLACEMENT Surgical History RECTAL FISTULA Hospitalization History SEE ABOVE [facility] Other History of Present illness Narrative* The [...] medication regimen. He denies medication side effects. -[facility] [address] DO Work Phone: [phone] of Present illness Narrative* The patient presents [...] medication regimen. He denies medication side effects. [facility] Work Phone: History of Present illness [...] * Risks: no increased risk for falling. [facility] Work Phone: InstructionsNot on filedocumented in this encounter [facility] SystemInstructionsNot on filedocumented in this encounter [facility] Summary Purpose Family History No Family History [...] leukemia: Father(V16.6, Z80.6) Status:Active : Father Status:Active Relationship Condition Age at Onset Recorded Date/T mack brother Diabetes mellitus Unknown father Unknown Malignant neoplasm Unknown Not Specified COVID Unknown Unknown Relationship Condition Age at Onset Recorded Date/T mack brother Diabetes mellitus Unknown father Unknown Malignant neoplasm Unknown mother COVID Unknown Unknown Advance Directives No Advanced Directives Records Found Advance Directive Response Recorded Date/ Time Advance Directives No July 10 9:20pm Advance Directive Response Recorded Date/ Time Advance Directives No July 10 3 8:20pm Chief Complaint and Reason for Visit Chief Complaint low heart rate Reason for Visit Acidosis, lactic Elevated troponin Hypotension Hypoxemia Junctional bradycardia Renal insufficiency Chief Complaint sss Chief Complaint SSS Chief Complaint Admit Date SSS January 31, 2024 8 :57pm SSS April 27, 2024 8:29am Chief Complaint * 3 month f/u: 'seem [...] This is initial in clinic follow-up at [facility]. * Patient reports remote history of iliac stenting in [place] and has been maintained on Plavix for 7 years, follows with vascular in [place]. Reports being hospitalized last year in [place] due to atrial fibrillation and started on Eliquis at that time, no antiarrhythmics. * June 2022 presented to [facility] due to weakness, seen [...] labs approximately 1 month ago at the [facility]. * He was seen outpatient by vascular [...] * 2 month f/u: 'doing fine' * JAIMEOTTO LECHUGA is being seen for a 2 [...] Referral Specialty Diagnoses / Procedures Referred By Deborah christian Referred To Contact Diagnoses Severe claudication ([facility]-HCC) 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 ([facility]) Procedures Vas aorta/iliac duplex complete Ran Chavez MD [address], [address] [address] Referral ID Status Reason Start Date Expiration Date V isits Requested Visits Authorized [id number] Pending Review 06/09/2023 06/08/2024 1 1 Specialty Diagnoses / Procedures Referred By Contac t Referred To Contact Diagnoses Severe claudication ([facility]-HCC) Procedures Vas art duplex lwr bilateral Ran Chavez MD [address], [address] [address] Phone: Referral ID Status Reason Start Date Expiration Date V isits Requested Visits Authorized [id number] Pending Review 06/09/2023 06/08/2024 1 1 Specialty Diagnoses / Procedures Referred By Contac t Referred To Contact Diagnoses Severe claudication (CMS-HCC) Procedures Vas art doppler lwr bilat mult lev/PVR Ran Chavez MD [address], [address] [address] Phone: Referral ID Status Reason Start Date Expiration Date V isits Requested Visits Authorized [id number] Pending Review 06/09/2023 06/08/2024 1 1 Specialty Diagnoses / Procedures Referred By Contac t Referred To Contact Diagnoses Severe claudication (CMS-HCC) Iliac artery occlusion, bilateral (CMS-HCC) Procedures Vas aorta/iliac duplex complete Ran Chavez MD [address], [address] [address] Phone: Referral ID Status Reason Start Date Expiration Date V isits Requested Visits Authorized [id number] Pending Review 07/28/2023 07/27/2024 1 1 Specialty Diagnoses / Procedures Referred By Contac t Referred To Contact Diagnoses Severe claudication (CMS-HCC) Procedures Vas art doppler lwr bilat mult lev/PVR Ran Chavez MD [address], [address] [address] Phone: Referral ID Status Reason Start Date Expiration Date V isits Requested Visits Authorized [id number] Pending Review 07/28/2023 07/27/2024 1 1 Specialty Diagnoses / Procedures Referred By Contac t Referred To Contact Diagnoses Paroxysmal atrial fibrillation (CMS/HCC) Procedures ECG 12 Lead Jaziel Claudio MD [address] [place] [address] 2, [address] [address] Referral ID Status Reason Start Date Expiration Date V isits Requested Visits Authorized [id number] Authorized 05/04/2023 05/03/2024 1 1 Specialty Diagnoses / Procedures Referred By Contac t Referred To Contact Cardiology Diagnoses Paroxysmal atrial fibrillation (CMS/HCC) Procedures Follow Up In Cardiology Jaziel Claudio MD [address] [facility] 2, [address] [address] [place] Cyndi Angelica, OB [employer] TE[employer]-HOME OFFICE 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 7[address] [facility] 2, [address] [address] Referral ID Status Reason Start Date Expiration Date V isits Requested Visits Authorized [id number] Authorized 05/04/2023 05/03/2024 1 1 Additional Source Comments (unrecognized sect ion and content) No Status Records FoundNo Status Records FoundNo Status Records FoundNo Status Records FoundNo Status Records FoundNo Status Records FoundNo Status Records FoundNo Status Records Found INFORMATION SOURCE (unrecogn ized section and content) DATE CREATED AUTHOR 11/25/2021 [facility] DATE CREATED AUTHOR AUTHOR'S ORGANIZ ATION 12/09/2021 [facility] DATE CREATED AUTHOR AUTHOR'S ORGANIZ ATION 11/12/2022 [facility] DATE CREATED AUTHOR AUTHOR'S ORGANIZ ATION 11/12/2022 [facility] DATE CREATED AUTHOR AUTHOR'S ORGANIZ ATION 03/02/2023 [facility] EPIC DATE CREATED AUTHOR AUTHOR'S ORGANIZ ATION 06/10/2023 [facility] DATE CREATED AUTHOR AUTHOR'S ORGANIZ ATION 04/26/2024 [facility] DATE CREATED AUTHOR AUTHOR'S ORGANIZ ATION 05/03/2024 [facility] Care Teams (unrecognized sec tion and content) Team Status: Active Member Role Status Dates PHYSICIAN NO FAMILY Primary Care Provider Active Team Status: Inactive Member Role Status Dates Jaziel Claudio MD Attending Provider Active Start: October 26, 2023 End: October 26, 2023 PHYSICIAN NO FAMILY Primary Care Provider Active Start: October 26, 2023 End: October 26, 2023 Team Status: Active Member Role Status Dates Iris Holliday MD Emergency Provider Active PHYSICIAN NO FAMILY Primary Care Provider Active Iris Lassiter DO Admit Provider, Attending Provider Active Team Status: Active Member Role Status Dates Shaikh Tiffany MD Primary Care Provider Active Team Status: Inactive Member Role Status Dates Jaziel Claudio MD Attending Provider Active Shaikh Tiffany MD Primary Care Provider Active Team Status: Inactive Member Role Status Dates Shaikh Tiffany MD Primary Care Provider Active Jaziel Claudio MD Attending Provider Active Overcaster Relationship Specialty Start Date End Date Shaikh Allen MD [address] [place] [address] PCP - General Internal Medicine 05/04/23 Jaziel Claudio MD [address] [facility] 2, [address] [place] [address] Consulting Physician Cardiology 05/04/23 Team Status: Inactive Member Role Status Dates Shaikh Tiffany MD Primary Care Provider Active Start: July 27, 2023 End: July 27, 2023 Jaziel Claudio MD Attending Provider Active Start: July 27, 2023 End: July 27, 2023 Overcaster Relationship Specialty Start Date End Date Shaikh Allen MD [address] [place] [address] PCP - General Internal Medicine 05/04/23 Jaziel Claudio MD [address] [place] [address] Consulting Physician Cardiology 05/04/23 Team Status: Active Member Role Status Dates JANES Gordon Primary Care Provider Ac tive Team Status: Active Member Role Status Dates Kentrell Garcia DO Other Provider Active Start : January 31, 2024 RANJAN GordonC Primary Care Provider Ac tive Start: January 31, 2024 Ale Perry MD Attending Provider Active Start: January 31, 2024 Team Status: Active Member Role Status Dates Jaziel Claudio MD Other Provider Active Start: April 27, 2024 JANES Gordon Primary Care Provider Ac tive Start: April 27, 2024 Ale Perry MD Attending Provider Active Start: April 27, 2024 REASON FOR VISIT (unrecogniz ed section and content) Reason Comments Follow-up 6 months Reason Comments Claudication Acute occlusion of i liac artery due to thrombosis, Severe Claudication. Testing prior at [facility] 02 96% NA peripheral artery disease Reason Comments Claudication Reason Comments Follow-up 8m Specialty Diagnoses / Procedures Referred By Contac t Referred To Contact Cardiology Diagnoses Paroxysmal atrial fibrillation (Multi) Procedures Follow Up In Cardiology Jaziel Claudio MD [address] [place] [address] Cyndi Asif, OB SCRUB TECH-HOME OFFICE 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 [facility] [facility] 2, [address] [place] [address] Phone: tel: fax: Referral ID Status Reason Start Date Expiration Date V isits Requested Visits Authorized [id number] Authorized 05/04/2023 05/03/2024 1 1 Goals (unrecognized section and content) Goals may [...] BE BASED ON THE PRIMARY CLINICAL RECORDS. [facility]. provides no warranty or guarantee of the accuracy or completeness of information in this document.
--- NOTE | 2024-05-03 09:00 | CA_ITS ---
Patient Name: ALESSANDRA LECHUGA MR#: [id number] : 1955 Exam Date: 05/03/2024 Ordering Doctor: CYNDI FUENTES ECHOCARDIOGRAM REPORT PROCEDURE: CA ECHO DOPPLER COMPLETE INDICATIONS: Atrial fibrillation, COPD, pacemaker COMPARISON: None. DESCRIPTION: COMPLETE ECHOCARDIOGRAM Real-time transthoracic echocardiography with 2D, M-mode, spectral and color flow Doppler performed. QUALITY: Technically difficult due to patients condition. Patient also in rapid atrial fibrillation. LEFT VENTRICLE: Normal chamber size. Mild concentric left ventricular hypertrophy. Systolic function is difficult to assess due to rhythm and poor sound transmission but appears at the lower limits of normal. LV EF: Visual estimation of left ventricular ejection fraction is 50% DIASTOLIC: Unable to assess due to rhythm. ATRIAL SEPTUM: LEFT ATRIUM: Poorly visualized. RIGHT ATRIUM: Poorly visualized. RIGHT VENTRICLE: Normal in size with normal systolic function. TRICUSPID VALVE: Normal mobility and thickness. MITRAL VALVE: Normal mobility and thickness. There is no mitral annular calcification. No clear evidence of regurgitation by Doppler. AORTIC VALVE: Poorly visualized. No clear evidence of regurgitation by Doppler. AORTIC ROOT: Normal diameter and appearance. PULMONIC VALVE: Not well visualized. PERICARDIUM: No evidence of pericardial effusion. IVC: PLEURA: CONCLUSION: 1. Technically difficult study due to poor sound transmission and rapid heart rate. 2. The left ventricle exhibits mild concentric hypertrophy. Systolic function is difficult to assess but appears at the lower limits of normal. Estimated LVEF is 50%. 3. Normal right ventricular size and systolic function. 4. No clear evidence of valvular dysfunction but the assessment of the valves is limited due to technical difficulties. 5. No pericardial effusion. Adult Echocardiography Procedure Report Left Ventricle LVEDD (3.7 - 5.6 cm): 3.58 cm LVESD (2.2 - 4.0 cm): 2.24 cm LVIVS thickness (0.6 - 1.2 cm): 0.83 cm LVPW thickness (0.5 - 1.0 cm): 1.17 cm LVOT Diameter 1.56 cm Left Atrium Left Atrium Systolic Dimension: 2.27 cm Mitral Valve Right Ventricle Aorta AO Root Diam: 2.16 cm Aortic Valve Tricuspid Valve Pulmonic Valve Peak Velocity: 1.41 m/s Peak Gradient: 7.98 mm[Hg] Right Atrium Dictated by: Bishop Sheridan M.D. on 05/03/2024 at 18:11 Approved by: Bishop Sheridan M.D. on 05/03/2024 at 18:20
[2024-05-03 09:36] LABS: Basophils Absolute Auto 0.1 10^3/uL (0.0-0.1); Basophils Percent Auto 0.3 % (0.2-2.0); Eosinophils Absolute Auto 0.1 10^3/uL (0.0-0.7); Eosinophils Percent Auto 0.3 % (0.9-7.0); Hematocrit 40.5 % (42.0-54.0); Hemoglobin 12.5 g/dL (14.0-18.0); Immature Granulocytes Abs Auto 0.04 10^3/uL (0.00-0.03); Immature Granulocytes Pct Auto 0.3 % (0.0-0.5); Lymphocytes Absolute Auto 2.6 10^3/uL (1.2-3.8); Lymphocytes Percent Auto 18.4 % (20.5-60.0); Mean Corpuscular HGB Conc 30.9 g/dL (29.9-35.2); Mean Corpuscular Hemoglobin 31.9 pg (25.9-34.0); Mean Corpuscular Volume 103.3 fL (80.0-94.0); Mean Platelet Volume 11.6 fL (9.5-13.5); Monocytes Percent Auto 7.2 % (1.7-12.0); Neutrophils Absolute Auto 10.5 10^3/uL (1.4-6.5); Neutrophils Percent Auto 73.5 % (43.0-75.0); Platelet Count 276 10^3/uL (150-450); Red Blood Count 3.92 10^6/uL (4.70-6.10); Red Cell Distribution Width 12.9 % (11.0-15.0); White Blood Count 14.4 10^3/uL (4.0-11.0)
[2024-05-03 10:01] LABS: Alanine Aminotransferase 18 U/L (16-63); Anion Gap 13.5; BUN Creatinine Ratio 15.3; Calcium 9.9 mg/dL (8.5-10.1); Chloride 103 mmol/L (98-107); Chol HDL Ratio 2.5; Cholesterol 146 mg/dL (<=200); Estimated GFR (African America >60 (>=60 mL/min/1.73m^2); Estimated GFR (Non-African Ame >60 (>=60 mL/min/1.73m^2); Glucose 144 mg/dL (74-106); HDL Cholesterol 59 mg/dL (40-60); LDL Cholesterol Calculated 70.4 mg/dL; Potassium 3.5 mmol/L (3.5-5.1); Sodium 147 mmol/L (136-145); Triglycerides 83 mg/dL (<=150); VLDL CHOLESTEROL 16.6 mg/dL
== END 2024-05-03 08:45 | disposition home or self-care (01) ==
LOC: CARD 08:44
PROVIDERS: Visit Provider Nurse Practitioner
DX: I48.0 Paroxysmal atrial fibrillation (principal); Z79.899 Other long term (current) drug therapy
CPT/HCPCS: 36415; 80048; 80061; 84460; 85025; 93306

== ENCOUNTER 2024-08-06 09:45 | Outpatient (OUT) | payer MEDICARE, SELFPAY ==
--- OUTSIDE RECORDS SUMMARY | 2024-07-26 10:00 | XMS_ITS | Encounter Summary ---
Author Organization [facility] Sys tem Address [id number] [address] [place] [address] Care Team Providers Care Deputy Program Manager Name Role Phone Unavailable Primary Care Provider Unavailabl e Reason for Referral * Vascular (Routine) - Authorized Specialty Diagnoses / Procedures Referred By Deborah christian Referred To Contact Diagnoses Severe claudication Procedures Vas art doppler lwr bilat mult lev/PVR Ran Chavez MD [address], [address] [address] Phone: tel: fax: Referral ID Status Reason Start Date Expiration Date V isits Requested Visits Authorized [id number] Authorized 07/26/2024 07/26/2025 1 1 Reason for Visit * Reason Comments 1 year follow up testing prior Encounter Details Date Type Department Care Team (Late st Contact Info) Description 07/26/2024 10:00 AM EDT [facility] [address] [place] [phone] Ran Chavez MD [address], [address] [address] Severe claudication (Primary Dx) Social History Tobacco Use Types Packs/Day Years Used Date Smoking Tobacco: Former Cigarettes 0.5 46.2 S tarted: 06/08/1978 Smokeless Tobacco: Never Tobacco Cessation:Counseling Given: Not Answered Comments:Quit after pacemaker placed Alcohol Use Standard Drinks/Week Comments Yes 8 (1 standard drink = 0.6 oz pur e alcohol) Childcare Answer Date Recorded Childcare Unknown 08/10/2018 Employment Answer Date Recorded Employment Unknown 08/10/2018 Hunger Screening Answer Date Recorded Within the past 12 months we worried whether our food would run out before we got money to buy more. Never True 07/26/2024 Within the past 12 months th e food we bought just didn't last and we didn't have money to get more. Never True 07/26/2024 Purpose - Life Answer Date Recorded Purpose and direction in life Unknown Sex and Gender Information Value Date Recorded Sex Assigned at Not on file Legal Sex Male 1:20 PM EDT Gender Identity Not on file Sexual Orientation Not on file documented as of this encounter Last Filed Vital Signs Vital Sign Reading Time Taken Comments Blood Pressure 126/76 07/26/2024 9:48 AM EDT Pulse 102 07/26/2024 9:48 AM EDT Temperature 37.5 C (99.5 F) 07/26/2024 9:48 AM EDT Respiratory Rate 18 07/26/2024 9:48 AM EDT Oxygen Saturation 91% 07/26/2024 9:48 AM EDT Inhaled Oxygen Concentration - - Weight 79.8 kg (176 lb) 07/26/2024 9:48 AM EDT Height 175.3 cm (5' 9 ) 07/26/2024 9:48 AM EDT Body Mass Index 25.99 07/26/2024 9:48 AM EDT documented in this encounter Progress Notes * Ran Chavez MD - 07/26/2024 10:00 AM EDT Images from the original note were not included. To: No primary care provider on file. HPI: Jaime Georges is a 68 y.o. male with lower extremity claudication he is here for an annual follow up. He did not have PVR. He is able to do his regular activities. He has COPD and home oxygen.. Review of Systems: Review of Systems Constitutional: Negative. HENT: Negative. Respiratory: Negative. Cardiovascular: Negative. Gastrointestinal: Negative. Endocrine: Negative. Genitourinary: Negative. Musculoskeletal: Negative. Skin: Negative. Neurological: Negative. Hematological: Negative. Medications: Current Outpatient Medications on File Prior to Visit Medication Sig Dispense Refill atorvastatin (LIPITOR) 40 mg tablet TAKE 1 TABLET BY MOUTH IN THE MORNING 90 tablet 3 dofetilide (TIKOSYN) 250 MCG capsule Take 1 [...] the morning. (Patient not taking: Reported on 07/26/2024) aspirin 81 mg chewable tablet Chew 1 tablet (81 mg total) and swallow in the morning. (Patient not taking: Reported on 07/26/2024) 90 tablet 3 clopidogreL (PLAVIX) 75 mg tablet TAKE 1 TABLET BY MOUTH IN THE MORNING (Patient not taking: Reported on 07/26/2024) 90 tablet 3 digoxin (LANOXIN) 125 mcg tablet Take 1 tablet (125 mcg total) by mouth in the morning. (Patient not taking: Reported on 07/26/2024) dilTIAZem (TIAZAC) 180 MG 24 hr capsule Take 1 capsule (180 mg total) by mouth in the morning. (Patient not taking: Reported on 07/26/2024) omeprazole (PriLOSEC) 40 mg capsule TAKE 1 CAPSULE BY MOUTH ONCE DAILY ON AN EMPTY STOMACH (Patientnot taking: Reported on 07/26/2024) sertraline (ZOLOFT) 25 mg tablet Take 1 tablet (25 mg total) by mouth in the morning. (Patient not taking: Reported on 07/26/2024) No current facility-administered medications on file prior to visit. Past Medical History: Past Medical History: Diagnosis Date Deep vein thrombosis ([facility]) Past Surgical History: Past Surgical History: Procedure Laterality Date OTHER SURGICAL HISTORY stent placement in pelvic are left side Social and Family History: Social History Socioeconomic History Marital status: Significant Other Spouse name: Not on file Number of children: Not on file Years of education: Not on file Highest education level: Not on file Occupational History Not on file Tobacco Use Smoking status: Former Current packs/day: 0.50 Average packs/day: 0.5 packs/day for 46.1 years (23.1 ttl pk-yrs) Types: Cigarettes Start date: 06/08/1978 Smokeless tobacco: Never Tobacco comments: Quit after pacemaker placed Vaping Use Vaping status: Never Used Substance and Sexual Activity Alcohol use: Yes Alcohol/week: 8.0 standard drinks of alcohol Types: 8 Cans of beer per week Drug use: Never Sexual activity: Defer Other Topics Concern Not on file Social History Narrative Not on file Social Drivers of Health Financial Resource Strain: Not on file Food Insecurity: No Food Insecurity (07/26/2024) Hunger Screening Food Insecurity - Worry: Never True Food Insecurity - Inability: Never True Transportation Needs: Not on file Physical Activity: Not on file Stress: Not on file Social Connections: Not on file Interpersonal Safety: Unknown (04/21/2023) Received from [facility] Safety & Environment Fear of Current or Ex-Partner: Not on file Emotionally Abused: Not on file Physically Abused: Not on file Sexually Abused: Not on file Physically or Sexually Abused: Not on file Housing Instability: Not on file No family history on file. Recent Labs: Recent and relative labs were reviewed and interpreted and contributed to the assessment and plan below. Vitals: BP 126/76 (BP Site: Left Arm, BP Postition: Sitting, BP CUFF SIZE: M (9-13 inches)) Pulse 102 Temp 37.5 ??C (99.5 ??F) (Temporal) Resp 18 Ht 175.3 cm (5' 9 ) Wt 79.8 kg (176 lb) SpO2 91% PF (!) 2 L/min BMI 25.99 kg/m?? Body mass index is 25.99 kg/m??. Physical Exam: Physical Exam Constitutional: Appearance: Normal [...] Assessment and Plan: Problem List Severe claudication - Primary Current Assessment & Plan PVR continue aspirin and statin: 81 mg aspirin and 40 mg atorvastatin. Continue Plavix 75 mg. Jaime was seen today for 1 year follow up testing prior. Diagnoses and all orders for this visit: Severe claudication Ran Chavez MD, MAKAYLA, RPVI, FSVS, FACS [facility] This note was created with the assistance of a speech recognition program. While intending to generate a timely document that accurately reflects the content of the visit, no guarantee can be provided that every grammatical or spelling mistake has been or will be identified or corrected. Thank you for your understanding. documented in this encounter Miscellaneous Notes * Assessment & Plan Note - Ran Chavez MD - 07/26/2024 12:33 PM EDT Associated Problem(s): Severe claudication PVR continue aspirin and statin: 81 mg aspirin and 40 mg atorvastatin. Continue Plavix 75 mg. documented in this encounter Plan of Treatment Scheduled Orders Name Type Priority Associated Diagnoses Orde r Schedule Vas art doppler lwr bilat mult lev/PVR Vascular Ultrasound Routine Severe claudication ([facility]) Expected: 07/26/2024, Expires: 01/26/2026 documented as of this encounter Visit Diagnoses Diagnosis Severe claudication- Primary documented in this encounter
--- OUTSIDE RECORDS SUMMARY | 2024-08-06 09:48 | XMS_ITS | Encounter Summary ---
Author Organization [facility] Sys tem Address [id number] [address] [place] [address] Care Team Providers Care Production Or Plant Engineer Name Role Phone Unavailable Primary Care Provider Unavailabl e Encounter Details Date Type Department Care Team (Late st Contact Info) Description 02/05/2022 Telephone [facility] [address] [facility] [place] [address] Daiana Le, TRINY Social History Tobacco Use Types Packs/Day Years Used Date Smoking Tobacco: Every Day Cigarettes 0.5 46.2 Started: 06/08/1978 Smokeless Tobacco: Never Alcohol Use Standard Drinks/Week Comments Yes 8 (1 standard drink = 0.6 oz pur e alcohol) Childcare Answer Date Recorded Childcare Unknown 08/10/2018 Employment Answer Date Recorded Employment Unknown 08/10/2018 Purpose - Life Answer Date Recorded Purpose and direction in life Unknown Sex and Gender Information Value Date Recorded Sex Assigned at Not on file Legal Sex Male 1:20 PM EDT Gender Identity Not on file Sexual Orientation Not on file COVID-19 Exposure Response Date Recorded In the last month, have you been in contact with someone who was confirmed or suspected to have Coronavirus / COVID-19? No / Unsure 02/04/2022 1:54 PM EST documented as of this encounter Plan of Treatment Not on file documented as of this encounter Visit Diagnoses Not on filedocumented in this encounter
--- OUTSIDE RECORDS SUMMARY | 2024-08-06 09:48 | XMS_ITS | Encounter Summary ---
Author Organization [facility] Address [address] [place] [address] Care Team Providers Care Registered Nurse Supervisor Name Role Phone Shaikh FOZIA Allen Primary Care Provider [phone] Encounter Details Date Type Department Care Team (Late st Contact Info) Description 07/22/2023 Clinisync Result Encounter [facility] External Department Unsolicited Ran Chavez MD [address], [place] [id number] Social History Tobacco Use Types Packs/Day Years Used Date Smoking Tobacco: Former Cigarettes 0.8 48 0 06/1973 - 06/2021 Smokeless Tobacco: Never Alcohol Use Standard Drinks/Week Comments Yes 0 (1 standard drink = 0.6 oz pur e alcohol) OCCASSIONAL Sex and Gender Information Value Date Recorded Sex Assigned at Not on file Legal Sex Male 2:33 PM EDT Gender Identity Not on file Sexual Orientation Not on file documented as of this encounter Plan of Treatment Not on file documented as of this encounter Procedures Procedure Name Priority Date/Time Associated Diagnosis Comments VASC US ABDOMINAL AORTA ANUERYSM AAA SCREENING 07/22/2023 1:05 PM EDT documented in this encounter Results * Vascular US abdominal aorta anuerysm AAA screening (07/22/2023 1:05 PM EDT) Anatomical Region Laterality Modality Abdomen Ultrasound 07/22/2023 1:05 PM EDT Narrative 07/22/2023 1:07 PM EDT The [address] [address] Ultrasound Report Signed Patient: JAIME GEORGES MR#: [id number] : 1955 Acct:[id number] Age/Sex: 67 / M ADM Date: 07/22/23 Loc: US Attending Dr: Ran Chavez M.D. Ordering Physician: Ran Chavez M.D. Date of Service: 07/22/23 Procedure(s): US abdominal aortic aneurysm Accession Number(s): [id number] cc: Ran Chavez M.D.; Physician,Non-Staff Shakir The [place] [id number] Patient Name: JAIME GEORGES MRN: [facility]:[id number] date: 1955 Sex: M Assigned Patient Location: US Current Patient Location: US Accession/Order Number: [id number] Exam Date: 07/22/2023 10:09 Report Date: 07/22/2023 13:05 At the request of: RAN CHAVEZ Procedure: US abdominal aortic aneurysm EXAM: US abdominal aortic aneurysm HISTORY: ACUTE OCCLUSION OF ILIAC ARTERY DUE TO THROMBOSIS I74.5. TECHNIQUE: Ultrasound was performed of the abdominal aorta. COMPARISON: None. FINDINGS: AORTA: No abnormal dilation of the abdominal aorta. Atherosclerotic plaque is noted. OTHER: Endovascular stent within left common iliac artery, 1.6 cm in diameter. US/US abdominal aortic aneurysm IMPRESSION: 1. No aortic aneurysm. 2. Prior endovascular stenting of left common iliac artery which appears patent. Electronically authenticated by: KATE ADORNO Date: 07/22/2023 13:05 Dictated By: Kate Adorno M.D. Signed By: 07/22/23 1307 DD/ 1305 TD/TT: Medical Supply Technician: Procedure Note Radiology, Radiologist, MD - 07/22/2023 [place] [address] Ultrasound Report Signed Patient: TAMI GEORGESR#: [id number] : 1955cct:[id number] Age/Sex: 67 / MADM Date: 07/22/23 Loc: US Attending Dr: Ran Chavez M.D. Ordering Physician: Ran Chavez M.D. Date of Service: 07/22/23 Procedure(s): US abdominal aortic aneurysm Accession Number(s): [id number] cc: Ran Chavez M.D.; Physician,Non-Staff Shakir The [place] [address] Patient Name: JAIME GEORGES MRN: [id number] date: 1955 Sex: M Assigned Patient Location: US Current Patient Location: US Accession/Order Number: [id number] Exam Date: 07/22/2023 10:09 Report Date: 07/22/2023 13:05 At the request of: RAN CHAVEZ Procedure: US abdominal aortic aneurysm EXAM: US abdominal aortic aneurysm HISTORY: ACUTE OCCLUSION OF ILIAC ARTERY DUE TO THROMBOSIS I74.5. TECHNIQUE: Ultrasound was performed of the abdominal aorta. COMPARISON: None. FINDINGS: AORTA: No abnormal dilation of the abdominal aorta. Atherosclerotic plaqueis noted. OTHER: Endovascular stent within left common iliac artery, 1.6 cm indiameter. US/US abdominal aortic aneurysm IMPRESSION: 1. No aortic aneurysm. 2. Prior endovascular stenting of left common iliac artery which appears patent. Electronically authenticated by: KATE ADORNO Date: 07/22/2023 13:05 Dictated By: Kate Adorno M.D. Signed By:07/22/23 1307 DD/ 1305 TD/TT: Medical Supply Technician: Ran Chavez [facility] Final Resu lt documented in this encounter Visit Diagnoses Not on filedocumented in this encounter Care Teams Registered Nurse Supervisor Relationship Specialty Start Date End Date Shaikh Allen MD PCP - General Internal Medicine 12/14/22 documented as of this encounter
--- OUTSIDE RECORDS SUMMARY | 2024-08-06 09:48 | XMS_ITS | Encounter Summary ---
Author Organization [facility] Address [address] [place] [address] Care Team Providers Care Wallpaper Embosser Helper Name Role Phone Shaikh FOZIA Allen Primary Care Provider [phone] Encounter Details Date Type Department Care Team (Late st Contact Info) Description 07/22/2023 Clinisync Result Encounter [facility] External Department Unsolicited Ran Chavez MD [address], [place] [id number] Social History Tobacco Use Types Packs/Day Years [...] Procedure Name Priority Date/Time Associated Diagnosis Comments SEGMENTAL BLOOD PRESSURE 07/22/2023 1:59 PM EDT documented in this encounter Results * SEGMENTAL BLOOD PRESSURE (07/22/2023 1:59 PM EDT) Anatomical Region Laterality Modality Radiographic Leatha ging 07/22/2023 1:59 PM EDT Narrative 07/22/2023 6:04 PM EDT The [address] [address] Cardiology Report Signed Patient: JAIME GEORGES MR#: [id number] : 1955 Acct:[id number] Age/Sex: 67 / M ADM Date: 07/22/23 Loc: US Attending Dr: Ran Chavez M.D. Ordering Physician: Ran Chavez M.D. Date of Service: 07/22/23 Procedure(s): CA segmental UE or LE ROCIO Accession Number(s): [id number] cc: Ran Chavez M.D.; Physician,Non-Staff Shakir [facility] Test Date: 2023-07-22 Pat Name: JAIME GEORGES Department: Room: - Gender: Male Loader Operator: : 1955 Requested By: 1892 Order Number: [id number] Reading MD: CHRISTOPHER MARQUEZ Interpretive Statements Monophasic doppler waveforms PVR waveforms with delayed amplitude, blunted amplitude and loss of dicrotic notch. Right: - significant pressure gradient between the brachial and thigh cuff - abnormal LASHA Left: - significant pressure gradient between the brachial and thigh cuff - significant pressure gradient between the thigh and calf cuff - abnormal LASHA Impression: - significant inflow (femoral artery or above) arterial disease with moderate hemodynamic impairment of the right lower extremity at rest. (right LASHA 0.75) - significant inflow (femoral artery or above) and femoropopliteal arterial disease with moderate-severe hemodynamic impairment of the left lower extremity at rest. (left LASHA 0.53) Electronically Signed On 07-22-2023 18:03:48 EDT by CHRITSOPHER MARQUEZ Dictated By: Christopher Marquez D.O. Signed By: 07/22/23180307/22/231803 DD/ 1359 TD/TT: Channel Director: Procedure Note Radiology, Radiologist, MD - 07/26/2023 [place] [address] Cardiology Report Signed Patient: MALIHA GEORGES#: [id number] : 6Acct:[id number] Age/Sex: 67 / MADM Date: 07/22/23 Loc: US Attending Dr: Ran Chavez M.D. Ordering Physician: Ran Chavez M.D. Date of Service: 07/22/23 Procedure(s): CA segmental UE or LE ROCIO Accession Number(s): [id number] cc: Scott,Mohamed M.D.; Physician,Non-Staff MDeloris [facility] Test Date: 2023-07-22 Pat Name: JAIMEOTTO MOJICAGEORGES Department: Room: - Gender: Male Loader Operator: : 1955 Requested By: 1892 Order Number: [id number] Reading MD: CHRISTOPHER MARQUEZ Interpretive Statements Monophasic doppler waveforms PVR waveforms with delayed amplitude, blunted amplitude and loss ofdicrotic notch. Right: - significant pressure gradient between the brachial and thigh cuff - abnormal LASHA Left: - significant pressure gradient between the brachial and thigh cuff - significant pressure gradient between the thigh and calf cuff - abnormal LASHA Impression: - significant inflow (femoral artery or above) arterial disease withmoderate hemodynamic impairment of the right lower extremity at rest. (right ABI0.75) - significant inflow (femoral artery or above) and femoropoplitealarterial disease with moderate-severe hemodynamic impairment of the left lower extremity at rest. (left LASHA 0.53) Electronically Signed On 07-22-2023 18:03:48 EDT by CHRISTOPHER MARQUEZ Dictated By: Christopher Marquez D.O. Signed By:07/22/23180307/22/231803 DD/ 1359 TD/TT: Channel Director: Ran Chavez MD IMG XR PROCEDURES Final Resu lt documented in this encounter Visit Diagnoses Not on filedocumented in this encounter Care Teams Wallpaper Embosser Helper Relationship Specialty Start Date End Date Shaikh Allen MD PCP - General Internal Medicine 12/14/22 documented as of this encounter
--- OUTSIDE RECORDS SUMMARY | 2024-08-06 09:48 | XMS_ITS | Encounter Summary ---
Author Organization [facility] Address [address] [place] [address] Phone Care Team Providers Care Antique Clocks Repairer Name Role Phone Shaikh FOZIA Allen Primary Care Provider [phone] Jaziel Gomez MD Unavailable Unavailabl e Encounter Details Date Type Department Care Team (Late st Contact Info) Description 10/25/2022 Scanned Document [facility] [address] [place] [address] Conversion, Onbase Social History Tobacco Use Types Packs/Day Years Used Date Smoking Tobacco: Never Assessed Sex and Gender Information Value Date Recorded Sex Assigned at Not on file Legal Sex Male 11:17 AM EDT Gender Identity Not on file Sexual Orientation Not on file documented as of this encounter Functional Status * Little interest or pleasure in doing things Answer Date of Assessment Author Not at all 10/25/2022 10:08 AM EDT Conversi on, [employer] Touchworks Vitals documented as of this encounter Plan of Treatment Upcoming Encounters Date Type Department Care Team (Late st Contact Info) Description 10/08/2024 1:00 PM EDT Office Visit [facility] [address] [facility] [address] [place] [address] Judy Asif, AUTO SERVICE WRITER-APPLICATION SECURITY DEVELOPER [address] [facility] [address] [place] [address] documented as of this encounter Procedures Procedure Name Priority Date/Time Associated Diagnosis Comments ELECTROCARDIOGRAM RHYTHM STRIP 10/25/2022 documented in this encounter Results * ELECTROCARDIOGRAM RHYTHM STRIP (10/25/2022) Narrative 10/25/2022 Ordered by an unspecified provider. us Onbase Conversion ECG ORDERABLES Final Result documented in this encounter Visit Diagnoses Not on filedocumented in this encounter Care Teams Antique Clocks Repairer Relationship Specialty Start Date End Date Shaikh Allen MD [address] [place] [address] PCP - General Internal Medicine 05/04/23 Jaziel Gomez MD [address] [place] [address] Consulting Physician Cardiology 05/04/23 documented as of this encounter
--- OUTSIDE RECORDS SUMMARY | 2024-08-06 09:48 | XMS_ITS | Clinical Summary ---
Author Organization [facility] Address [address] [place] [address] Care Team Providers Care Cake Batter Mixer Name Role Phone Shaikh FOZIA Allen Primary Care Provider [phone] Allergies Active Allergy Reactions Criticality Noted Date Comments Codeine GI intolerance 02/23/2023 Medications apixaban (Eliquis) 5 MG tablet Take 1 tablet by mouth in the morning and 1 tablet before bedtime. Active albuterol HFA 90 mcg/act inhaler Inhale 2 puffs every 4 (four) hours if needed for wheezing Active omeprazole (PriLOSEC) [address] capsule Take 40 mg by mouth in the morning. Take before meals. Do not crush or chew.. Active metoprolol tartrate (Lopressor) 25 MG tablet Take 1 tablet by mouth in the morning. Active digoxin (Lanoxin) 125 MCG tablet Take 1 tablet by mouth in the morning. Active dilTIAZem HCl ER 180 MG tablet sustained-relea se 24 hour Take 1 tablet by mouth in the morning. Active ferrous sulfate 325 (65 Fe) MG EC tablet Take 1 tablet by mouth in the morning. Take with meals. Do not crush, chew, or split.. Active Multiple Vitamins-Iron (MULTIVITAMIN PLUS IRON ADULT PO) Take 1 tablet by mouth in the morning. Active Calcium Carb-Cholecalci ferol (CALCIUM CARBONATE-VITAM IN D3 PO) Take 1 tablet by mouth in the morning. Active furosemide (Lasix) 20 MG tablet Take 20 mg by mouth in the morning. Active Active Problems Problem Noted Date Diagnosed Date Skin lesion 03/01/2023 Assessment & Plan (03/01/2023 2:34 PM EST): Reports he has a skin lesion in his upper back for sometime. It intermittently increases in size and sometimes itches. He probably scraped if off and now there is some bleeding over there. On Exam, there is about a quarter size skin lesion with superficial bleeding. No mole. Not sure what exactly happened. I suspect he had a mole that he removed it when scratching. Recommended to see Dermatology for annual skin exam for cancer surveillance. Chronic diastolic heart failure 12/09/2021 Overview (03/01/2023): Last Assessment & Plan: NYHC II-currently euvolemic without exacerbation Continue goal-directed medical therapy-he has not needed any diuresis. Continue fluid restriction 1-1/2 to 2 L/day, low-sodium diet, daily weights discussed with patient when to call office for concerns of increased weight, increased shortness of breath or orthopnea or any other concerns and he voiced understanding Tobacco dependence 12/09/2021 Overview (03/01/2023): Last Assessment & Plan: 10-minute discussion with patient regarding importance of smoking cessation he voiced understanding and states he will try to quit smoking again in light he is only smoking 4 to 5 cigarettes a day Chronic obstructive lung disease 08/10/2021 Paroxysmal atrial fibrillation 08/10/2021 Overview (03/01/2023): Last Assessment & Plan: [id number]= 4 age, HTN, CHF, vascular disease Continue eliquis anticoagualtion- denied bleeding tendencies Currently in rhythm per assessment Continue diltiazem, digoxin and metoprolol as prescribed Peripheral vascular disease 08/10/2021 Overview (03/01/2023): Last Assessment & Plan: No concerning symptoms today, strongly recommended to continue medication regimen and to quit smoking Encounters Date Type Department Care Team Description 05/30/2024 Telephone [facility] [address] [place] [address] Trish Plaza MA Referral 05/24/2024 1:40 PM EDT Office Visit [facility] [address] [place] [address] Azul Kam PA Neoplasm of unspecified behavior of bone, soft tissue, and skin 05/24/2024 Bamboo flowsheet [facility] [address] [place] [address] Azul Kam PA 05/24/2024 Travel from Last 3 Months Social History Tobacco Use Types Packs/Day Years Used Date Smoking Tobacco: Former Cigarettes 0.8 48 0 06/1973 - 06/2021 Smokeless Tobacco: Never Tobacco Cessation:Counseling Given: No Alcohol Use Standard Drinks/Week Comments Yes 0 (1 standard drink = 0.6 oz pur e alcohol) OCCASSIONAL Sex and Gender Information Value Date Recorded Sex Assigned at Not on file Legal Sex Male 2:33 PM EDT Gender Identity Not on file Sexual Orientation Not on file Last Filed Vital Signs Vital Sign Reading Time Taken Comments Blood Pressure 120/68 03/01/2023 2:13 PM EST Pulse 115 03/01/2023 2:13 PM EST Temperature 36.6 C (97.8 F) 03/01/2023 2:13 PM EST Respiratory Rate 16 12/15/2022 11:04 AM EDT Oxygen Saturation 97% 03/01/2023 2:13 PM EST Inhaled Oxygen Concentration - - Weight 73.9 kg (163 lb) 03/01/2023 2:13 PM EST Height 172.7 cm (5' 8 ) 03/01/2023 2:13 PM EST Body Mass Index 24.78 03/01/2023 2:13 PM EST Plan of Treatment Not on file Procedures Procedure Name Priority Date/Time Associated Diagnosis Comments SKIN / NAIL BIOPSY Routine 05/24/2024 1: 14 PM EDT Neoplasm of unspecified behavior of bone, soft tissue, and skin DERMATOPATHOLOGY EXAM Routine 05/24/2024 12:00 AM EDT Neoplasm of unspecified behavior of bone, soft tissue, and skin from Last 3 Months Results * Lesion biopsy (05/24/2024 1:14 PM EDT) Narrative Nadege Brower MA - 05/24/2024 1:14 PM EDT Type of biopsy: tangential Informed consent: discussed and consent obtained Informed consent comment: The risks and benefits of the biopsy were discussed. Risks include but are not limited to bleeding, infection, scarring, pain, and nerve damage. An opportunity to ask questions prior to the procedure was permitted and all questions were answered. Patient was prepped and draped in usual sterile fashion: area cleansed with alcohol. Anesthesia: the lesion was anesthetized in a standard fashion Anesthetic: 1% lidocaine w/ epinephrine 1-100,000 buffered w/ 8.4% NaHCO3 Instrument used: DermaBlade Hemostasis achieved with: aluminum chloride Outcome: patient tolerated procedure well Outcome comment: The specimen was placed in a prelabeled formalin container to be sent for pathology Post-procedure details: sterile dressing applied and wound care instructions given Post-procedure details comment: Emphasized need to contact clinic for any signs of infection, uncontrollable bleeding, or complications. Dressing type: bandage Additional details: Photo taken Amount of lidocaine used: 1.0 cc [facility] PROCEDURE ORDERABLES Chen estrada Result * Dermatopathology exam (05/24/2024 12:00 AM EDT) SPECIMEN TYPE ------ SPECIMEN: LT UPR BACK ------ [facility] ICD10 Code C44.519 [facility] PROTOCOL F - FLAT [facility] Final Diagnosis NODULAR BASAL CELL CARCINOMA (SEE COMMENT). COMMENT: The tumor is transected at the edges and across the base. [facility] Gross Text [facility] Microscopic Description Microscopic examination performed. [facility] CPT 43132*1 [facility] Skin Topography unknown / Unknown 05/24/2024 1:14 PM EDT Comment:Differential Diagnos is: SCC vs. BCC vs. ISK vs. Melanoma Check Margins: No Size of lesion: 2.5 x 2.3 cm us Azul [facility] PATHOLOGY ORDERABLES Final Result [facility] from Last 3 Months Insurance MEDICARE Care Teams Cake Batter Mixer Relationship Specialty Start Date End Date Shaikh Allen MD PCP - General Internal Medicine 12/14/22
--- OUTSIDE RECORDS SUMMARY | 2024-08-06 09:48 | XMS_ITS | Encounter Summary ---
Author Organization [facility] Address [address] [place] [address] Care Team Providers Care Biotechnician Name Role Phone Shaikh FOZIA Allen Primary Care Provider [phone] Encounter Details Date Type Department Care Team (Late st Contact Info) Description 07/26/2023 Clinisync Result Encounter [facility] External Department Unsolicited Ran Chavez MD [address], [place] [id number] Social History Tobacco Use Types Packs/Day Years [...] Priority Date/Time Associated Diagnosis Comments VASC US LOWER EXTREMITY ARTERIAL DUPLEX BILATERAL 07/26/2023 10:12 AM EDT documented in this encounter Results * Vascular US lower extremity arterial duplex bilateral (07/26/2023 10:12 AM EDT) Anatomical Region Laterality Modality Lower Extremities Ultrasound 07/26/2023 10:1 2 AM EDT Narrative 07/26/2023 10:15 AM EDT The [address] [address] Ultrasound Report Signed Patient: JAIME GEORGES MR#: [id number] : 1955 Acct:[id number] Age/Sex: 67 / M ADM Date: 07/22/23 Loc: US Attending Dr: Ran Chavez M.D. Ordering Physician: Ran Chavez M.D. Date of Service: 07/22/23 Procedure(s): US arterial duplex LE BI Accession Number(s): [id number] cc: Ran Chavez M.D.; Physician,Non-Staff [place] [address] Patient Name: JAIME GEORGES MRN: [facility]:[id number] date: 1955 Sex: M Assigned Patient Location: US Current Patient Location: CT Accession/Order Number: [id number] Exam Date: 07/22/2023 10:09 Report Date: 07/26/2023 10:12 At the request of: RAN CHAVEZ Procedure: US arterial duplex LE BI EXAMINATION: US arterial duplex LE BI HISTORY: SEVERE CLAUDICATION I73.9 COMPARISON: No relevant comparison available. TECHNIQUE: Color and Duplex Doppler ultrasound evaluation analysis were performed in the usual manner. FINDINGS: RIGHT LOWER EXTREMITY ARTERIAL: Abnormal monophasic waveform throughout the lower extremity, including the external iliac artery. Moderate atherosclerotic narrowing of the vessels throughout. External Iliac PSV: 142.3 cm/s External Iliac EDV: 30.8 cm/s Common Femoral PSV: 146.9 cm/s Common Femoral EDV: 12.2 cm/s Superficial Femoral Proximal PSV: 66.8 cm/s Proximal EDV: 4.7 cm/s Mid PSV: 87.5 cm/s Mid EDV: 0.0 cm/s Distal PSV: 44.8 cm/s Distal EDV: 6.0 cm/s Popliteal Proximal PSV: 61.6 cm/s Popliteal Proximal EDV: 7.2 cm/s Posterior Tibial Proximal PSV: 23.2 cm/s Proximal EDV: 9.0 cm/s Mid PSV: 21.1 cm/s Mid EDV: 5.4 cm/s Distal PSV: 30.3 cm/s Distal EDV: 6.8 cm/s Anterior Tibial Proximal PSV: 37.4 cm/s Proximal EDV: 9.7 cm/s Mid PSV: 37.4 cm/s Mid EDV: 12.5 cm/s Distal PSV: 42.4 cm/s Distal EDV: 10.4 cm/s LEFT LOWER EXTREMITY ARTERIAL: Abnormal monophasic waveform within external iliac artery. Complete occlusion of proximal femoral artery with trace amount of reconstituted flow within mid and distal femoral artery. Abnormal monophasic waveform throughout the lower extremity. Parvus-tardus type monophasic waveform within the popliteal and calf arteries. External Iliac PSV: 180.3 cm/s External Iliac EDV: 8.4 cm/s Common Femoral PSV: 119.8 cm/s Common Femoral EDV: 8.4 cm/s Superficial Femoral Proximal PSV: Absent Proximal EDV: Absent Mid PSV: 27.6 cm/s Mid EDV: 0.0 cm/s Distal PSV: 50.9 cm/s Distal EDV: 0.0 cm/s Popliteal Proximal PSV: Popliteal Proximal EDV: Posterior Tibial Proximal PSV: 24.4 cm/s Proximal EDV: 5.0 cm/s Mid PSV: 20.6 cm/s Mid EDV: 3.8 cm/s Distal PSV: 15.4 cm/s Distal EDV: Anterior Tibial Proximal PSV: 23.0 cm/s Proximal EDV: 6.5 cm/s Mid PSV: 24.4 cm/s Mid EDV: 6.3 cm/s Distal PSV: 20.6 cm/s Distal EDV: 7.6 cm/s US/US arterial duplex LE BI IMPRESSION: 1. 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 2. Abnormal monophasic waveform throughout both lower extremities with low/slow blood flow. 3. Moderate-marked atherosclerotic disease bilaterally. 4. Consider CT angiography of the abdomen and pelvis with bilateral lower extremity runoff for further evaluation. Electronically authenticated by: KATE ADORNO Date: 07/26/2023 10:12 Dictated By: Kate Adorno M.D. Signed By: 07/26/23 1015 DD/ 1012 TD/TT: Academic Advisor: Procedure Note Radiology, Radiologist, - 07/26/2023 [place] [address] Ultrasound Report Signed Patient: TAMI GEORGESR#: [id number] : 1955cct:[id number] Age/Sex: 67 / MADM Date: 07/22/23 Loc: US Attending Dr: Ran Chavez M.D. Ordering Physician: Ran Chavez M.D. Date of Service: 07/22/23 Procedure(s): US arterial duplex LE BI Accession Number(s): [id number] cc: Ran Chavez M.D.; Physician,Non-Staff [place] [address] Patient Name: JAIME GEORGES MRN: [facility]:[id number] date: 1955 Sex: M Assigned Patient Location: US Current Patient Location: CT Accession/Order Number: [id number] Exam Date: 07/22/2023 10:09 Report Date: 07/26/2023 10:12 At the request of: RAN CHAVEZ Procedure: US arterial duplex LE BI EXAMINATION: US arterial duplex LE BI HISTORY: SEVERE CLAUDICATION I73.9 COMPARISON: No relevant comparison available. TECHNIQUE: Color and Duplex Doppler ultrasound evaluation analysis were performed in the usual manner. FINDINGS: RIGHT LOWER EXTREMITY ARTERIAL: Abnormal monophasic waveform throughoutthe lower extremity, including the external iliac artery. Moderateatherosclerotic narrowing of the vessels throughout. External Iliac PSV: 142.3 cm/s External Iliac EDV: 30.8 cm/s Common Femoral PSV: 146.9 cm/s Common Femoral EDV: 12.2 cm/s Superficial Femoral Proximal PSV: 66.8 cm/s Proximal EDV: 4.7 cm/s Mid PSV: 87.5 cm/s Mid EDV: 0.0 cm/s Distal PSV: 44.8 cm/s Distal EDV: 6.0 cm/s Popliteal Proximal PSV: 61.6 cm/s Popliteal Proximal EDV: 7.2 cm/s Posterior Tibial Proximal PSV: 23.2 cm/s Proximal EDV: 9.0 cm/s Mid PSV: 21.1 cm/s Mid EDV: 5.4 cm/s Distal PSV: 30.3 cm/s Distal EDV: 6.8 cm/s Anterior Tibial Proximal PSV: 37.4 cm/s Proximal EDV: 9.7 cm/s Mid PSV: 37.4 cm/s Mid EDV: 12.5 cm/s Distal PSV: 42.4 cm/s Distal EDV: 10.4 cm/s LEFT LOWER EXTREMITY ARTERIAL: Abnormal monophasic waveform withinexternal iliac artery. Complete occlusion of proximal femoral artery with traceamount of reconstituted flow within mid and distal femoral artery. Abnormal monophasic waveform throughout the lower extremity. Parvus-tardus type monophasic waveform within the popliteal and calf arteries. External Iliac PSV: 180.3 cm/s External Iliac EDV: 8.4 cm/s Common Femoral PSV: 119.8 cm/s Common Femoral EDV: 8.4 cm/s Superficial Femoral Proximal PSV: Absent Proximal EDV: Absent Mid PSV: 27.6 cm/s Mid EDV: 0.0 cm/s Distal PSV: 50.9 cm/s Distal EDV: 0.0 cm/s Popliteal Proximal PSV: Popliteal Proximal EDV: Posterior Tibial Proximal PSV: 24.4 cm/s Proximal EDV: 5.0 cm/s Mid PSV: 20.6 cm/s Mid EDV: 3.8 cm/s Distal PSV: 15.4 cm/s Distal EDV: Anterior Tibial Proximal PSV: 23.0 cm/s Proximal EDV: 6.5 cm/s Mid PSV: 24.4 cm/s Mid EDV: 6.3 cm/s Distal PSV: 20.6 cm/s Distal EDV: 7.6 cm/s US/US arterial duplex LE BI IMPRESSION: 1. 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 2. Abnormal monophasic waveform throughout both lower extremities with low/slow blood flow. 3. Moderate-marked atherosclerotic disease bilaterally. 4. Consider CT angiography of the abdomen and pelvis with bilateral lower extremity runoff for further evaluation. Electronically authenticated by: KATE ADORNO Date: 07/26/2023 10:12 Dictated By: Kate Adorno M.D. Signed By:07/26/23 1015 DD/ 1012 TD/TT: Academic Advisor: [facility] Jackie Chavez MD IMG PROCEDURES Final Resu lt documented in this encounter Visit Diagnoses Not on filedocumented in this encounter Care Teams Biotechnician Relationship Specialty Start Date End Date Shaikh Allen MD PCP - General Internal Medicine 12/14/22 documented as of this encounter
--- OUTSIDE RECORDS SUMMARY | 2024-08-06 09:48 | XMS_ITS | Encounter Summary ---
Author Organization [facility] Address [address] [place] [address] Phone Care Team Providers Care Proposal Lead Writer Name Role Phone Shaikh FOZIA Allen Primary Care Provider [phone] Jaziel Gomez MD Unavailable Unavailabl e Encounter Details Date Type Department Care Team (Late st Contact Info) Description 11/10/2022 Scanned Document [facility] [address] [place] [address] Conversion, Onbase Social History Tobacco Use Types [...] Date of Assessment Author Not at all 11/10/2022 12:43 PM EDT Conversi on, [employer] Touchworks Vitals documented as of this encounter Plan of Treatment Upcoming Encounters Date Type Department Care Team (Late st Contact Info) Description 10/08/2024 1:00 PM EDT Office Visit [facility] [address] [facility] [address] [place] [address] Judy Asif, BOOKING MANAGER-SENIOR PEOPLESOFT DEVELOPER [address] [facility] [address] [place] [address] documented as of this encounter Procedures Procedure Name Priority Date/Time Associated Diagnosis Comments ELECTROCARDIOGRAM RHYTHM STRIP 11/10/2022 documented in this encounter Results * ELECTROCARDIOGRAM RHYTHM STRIP (11/10/2022) Narrative 11/10/2022 Ordered by an unspecified provider. us Onbase Conversion ECG ORDERABLES Final Result documented in this encounter Visit Diagnoses Not on filedocumented in this encounter Care Teams Proposal Lead Writer Relationship Specialty Start Date End Date Shaikh Allen MD [address] [place] [address] PCP - General Internal Medicine 05/04/23 Jaziel Gomez MD [address] [place] [address] Consulting Physician Cardiology 05/04/23 documented as of this encounter
--- OUTSIDE RECORDS SUMMARY | 2024-08-06 09:48 | XMS_ITS | Encounter Summary ---
Author Organization [facility] Address [address] [place] [address] Phone Care Team Providers Care Catalogue Compiler Name Role Phone Shaikh FOZIA Allen Primary Care Provider [phone] Jaziel Gomez MD Unavailable Unavailabl e Encounter Details Date Type Department Care Team (Late st Contact Info) Description 10/18/2022 Scanned Document [facility] [address] [place] [address] Conversion, Onbase Social History Tobacco Use Types [...] Description 10/08/2024 1:00 PM EDT Office Visit [facility] [address] [facility] [address] [place] [address] Judy Asif, MANAGER SHIPPING-SEWING MACHINE OPERATOR SEMIAUTOMATIC [facility] [facility] [address] [place], [place] [id number] documented as of this encounter Procedures Procedure Name Priority Date/Time Associated Diagnosis Comments OUTSIDE GENERIC TESTING 10/18/2022 documented in this encounter Results * OUTSIDE GENERIC TESTING (10/18/2022) Anatomical Region Laterality Modality Other Narrative 10/18/2022 Ordered by an unspecified provider. us Onbase Conversion OUTSIDE SCAN Final Result documented in this encounter Visit Diagnoses Not on filedocumented in this encounter Care Teams Catalogue Compiler Relationship Specialty Start Date End Date Shaikh Allen MD [address] [place] [address] PCP - General Internal Medicine 05/04/23 Jaziel Gomez MD [address] [place] [address] Consulting Physician Cardiology 05/04/23 documented as of this encounter
--- OUTSIDE RECORDS SUMMARY | 2024-08-06 09:48 | XMS_ITS | Encounter Summary ---
Author Organization [facility] Address [address] [place] [address] Phone Care Team Providers Care Tram Inspector Name Role Phone Shaikh FOZIA Allen Primary Care Provider [phone] Jaziel Gomez MD Unavailable Unavailabl e Encounter Details Date Type Department Care Team (Late st Contact Info) Description 11/08/2022 Orders Only [facility] [address] [place] [address] Conversion, Onbase Social History Tobacco Use Types [...] Description 10/08/2024 1:00 PM EDT [facility] [address] [facility] [address] [place] [address] Judy Asif, MINE PRODUCTION ENGINEER-SENIOR BUSINESS BROKER [address] [facility] [address] [place] [address] Scheduled Orders Name Type Priority Associated Diagnoses Orde r Schedule OUTSIDE LAB SCAN Lab Ordered: 11/08/2022 documented as of this encounter Visit Diagnoses Not on filedocumented in this encounter Care Teams Tram Inspector Relationship Specialty Start Date End Date Shaikh Allen MD [address] [place] [address] PCP - General Internal Medicine 05/04/23 Jaziel Gomez MD [address] [place] [address] Consulting Physician Cardiology 05/04/23 documented as of this encounter
--- OUTSIDE RECORDS SUMMARY | 2024-08-06 09:49 | XMS_ITS | Referral Summary ---
Author Organization [facility] Address [address] [place] [address] Care Team Providers Care Joint Sealer Name Role Phone Unavailable Primary Care Provider Unavailabl e Allergies Active Allergy Reactions Criticality Noted Date Comments Codeine 11/05/2021 Medications Medication Sig Dispensed Refills Start Date End Date Status albuterol 90 mcg/actuation inhaler Inhale 2 puffs in the morning, at afternoon, at bedtime, and 2 AM. Active clopidogrel (Plavix) 75 mg tablet Take 1 tablet by mouth in the morning. Active digoxin (Lanoxin) 125 MCG tablet Take 1 tablet by mouth in the morning. Active dilTIAZem ER (Tiazac) 180 mg 24 hr capsule Take 1 capsule by mouth in the morning. Active apixaban (Eliquis) 5 mg tablet Take 5 mg by mouth in the morning and 5 mg in the evening. 10/21/2021 Active metoprolol tartrate (Lopressor) 25 mg tablet Take 25 mg by mouth in the morning and at bedtime. 10/21/2021 Active omeprazole (PriLOSEC) [address] capsule TAKE 1 CAPSULE BY MOUTH ONCE DAILY ON AN EMPTY STOMACH 10/21/2021 Active Active Problems Problem Noted Date Diagnosed Date Tobacco dependence 12/09/2021 Assessment & Plan (12/09/2021 3:22 PM EDT): 10-minute discussion with patient regarding importance of smoking cessation he voiced understanding and states he will try to quit smoking again in light he is only smoking 4 to 5 cigarettes a day Chronic diastolic heart failure 12/09/2021 Assessment & Plan (12/09/2021 3:21 PM EDT): NYHC II-currently euvolemic without exacerbation Continue goal-directed medical therapy-he has not needed any diuresis. Continue fluid restriction 1-1/2 to 2 L/day, low-sodium diet, daily weights discussed with patient when to call office for concerns of increased weight, increased shortness of breath or orthopnea or any other concerns and he voiced understanding Chronic obstructive lung disease 08/10/2021 Dyspnea 08/10/2021 Paroxysmal atrial fibrillation 08/10/2021 Assessment & Plan (12/09/2021 3:20 PM EDT): [id number]= 4 age, HTN, CHF, vascular disease Continue eliquis anticoagualtion- denied bleeding tendencies Currently in rhythm per assessment Continue diltiazem, digoxin and metoprolol as prescribed Peripheral vascular disease 08/10/2021 Assessment & Plan (12/09/2021 3:20 PM EDT): No concerning symptoms today, strongly recommended to continue medication regimen and to quit smoking Right bundle branch block 08/10/2021 Social History Tobacco Use Types Packs/Day Years Used Date Smoking Tobacco: Every Day Cigarettes Last attempted to quit: 06/2021 Smokeless Tobacco: Never Tobacco Cessation:Ready to Q uit: Not Asked; Counseling Given: Not Answered Alcohol Use Standard Drinks/Week Comments Not Currently 0 (1 standard drink = 0.6 oz pur e alcohol) [place] Safety & Environment Answer Date Rec orded Fear of Current or Ex-Partner Not on file Emotionally Abused Not on file 04/21/2023 Physically Abused Not on file 04/21/2023 Sexually Abused Not on file 04/21/2023 Physically or Sexually Abused Not on file Sex and Gender Information Value Date Recorded Sex Assigned at Not on file Gender Identity Not on file Sexual Orientation Not on file Last Filed Vital Signs Vital Sign Reading Time Taken Comments Blood Pressure 123/58 12/09/2021 2:53 PM EDT Pulse 83 12/09/2021 2:53 PM EDT Temperature - - Respiratory Rate - - Oxygen Saturation 90% 12/09/2021 2:53 PM EDT Inhaled Oxygen Concentration - - Weight 66.2 kg (146 lb) 12/09/2021 2:53 PM EDT Height 175.3 cm (5' 9 ) 12/09/2021 2:53 PM EDT Body Mass Index 21.56 12/09/2021 2:53 PM EDT Plan of Treatment Not on file
--- OUTSIDE RECORDS SUMMARY | 2024-08-06 09:49 | XMS_ITS | Encounter Summary ---
Author Organization [employer] [facility] tem Address [id number] [address] [place] [address] Care Team Providers Care Director Of Social Media Marketing Name Role Phone Unavailable Primary Care Provider Unavailabl e Encounter Details Date Type Department Care Team (Latest Contact Info) Description 07/26/2024 Travel Social History Tobacco Use Types Packs/Day Years Used Date Smoking Tobacco: Former Cigarettes 0.5 46.2 S tarted: 06/08/1978 Smokeless Tobacco: Never Comments:Quit after pacemake r placed Alcohol Use Standard Drinks/Week Comments Yes [...]
--- OUTSIDE RECORDS SUMMARY | 2024-08-06 09:49 | XMS_ITS | Encounter Summary ---
Author Organization [facility] Address [address] [place] [address] Phone Care Team Providers Care Artist'S Manager Name Role Phone Shaikh FOZIA Allen Primary Care Provider [phone] Jaziel Gomez MD Unavailable Unavailabl e Encounter Details Date Type Department Care Team (Late Contact Info) Description 08/03/2023 Scanned Document [facility] [address] [place] [address] Scanning, Generic Provider Social History Tobacco Use Types Packs/Day Years Used Date Smoking Tobacco: Former Cigarettes Q uit: 06/2022 Smokeless Tobacco: Never Alcohol Use Standard Drinks/Week Comments Yes 4 (1 standard drink = 0.6 oz pur e alcohol) Sex and Gender Information Value Date Recorded Sex Assigned at Not on file Legal Sex Male 11:17 AM EDT Gender Identity Not on file Sexual Orientation Not on file documented as of this encounter Plan of Treatment Upcoming Encounters Date Type Department Care Team (Late Contact Info) Description 10/08/2024 1:00 PM EDT Office Visit [facility] [address] [facility] [address] [place] [address] Judy Asif, UNDER GROUND MINER-SUPERVISOR HIDE HOUSE [address] [facility] [address] [place] [address] documented as of this encounter Visit Diagnoses Not on filedocumented in this encounter Additional Health Concerns Assessment Noted Time A fall risk assessment has been complete d for the patient 05/04/2023 3:09 PM EST documented as of this encounter Care Teams Artist'S Manager Relationship Specialty Start Date End Date Shaikh Allen MD [address] [place] [address] PCP - General Internal Medicine 05/04/23 Jaziel Gomez MD [address] [place] [address] Consulting Physician Cardiology 05/04/23 documented as of this encounter
--- OUTSIDE RECORDS SUMMARY | 2024-08-06 09:49 | XMS_ITS | Clinical Summary ---
Author Organization [facility] Address [address] [place] [address] Care Team Providers Care Accountant Systems Name Role Phone Unavailable Primary Care Provider [...] Assessment & Plan (12/09/2021 3:20 PM EDT): [id number]= 4 age, HTN, CHF, vascular disease Continue eliquis anticoagualtion- denied bleeding tendencies Currently in rhythm per assessment Continue diltiazem, digoxin and metoprolol as prescribed Peripheral vascular disease 08/10/2021 Assessment & Plan (12/09/2021 3:20 PM EDT): No concerning symptoms today, strongly recommended to continue medication regimen and to quit smoking Right bundle branch block 08/10/2021 Family History Medical History Relation Name Comments Diabetes Brother Relation Name Status Comments Brother Social History Tobacco Use Types Packs/Day Years [...] 12/09/2021 2:53 PM EDT Plan of Treatment Health Maintenance Due Date Last Done Comments CT Colonography 1955 Colonoscopy 1955 Colorectal Cancer Screening 1955 FIT-DNA 1955 FIT 1955 FOBT 1955 Medicare Annual Wellness (AWV) 1955 Sigmoidoscopy 1955 Pneumococcal Vaccine: 65+ Ye ars (1 of 2 - PCV) 10/05/1961 Depression Screening 1967 Adult Tetanus 10/05/1977 Zoster Vaccines (1 of 2) 10/05/2005 Fall Risk Screening 10/05/2020 COVID-19 Vaccine (1 - 2023-2 5 season) 2023 Influenza Vaccine (Season Ended) 2024 HIB Vaccines Aged Out No longer eligi ble based on patient's age to complete this topic HPV Vaccines Aged Out No longer eligi ble based on patient's age to complete this topic IPV Vaccines Aged Out No longer eligi ble based on patient's age to complete this topic Meningococcal B Vaccine Aged Out No l onger eligible based on patient's age to complete this topic Meningococcal Vaccine Aged Out No eunice rocio eligible based on patient's age to complete this topic Rotavirus Vaccines Aged Out No longer eligible based on patient's age to complete this topic
--- OUTSIDE RECORDS SUMMARY | 2024-08-06 09:49 | XMS_ITS | Encounter Summary ---
Author Organization [employer] Address [id number] [address] [place] [address] Care Team Providers Care Secondary English Teacher Name Role Phone Unavailable Primary Care Provider Unavailabl e Encounter Details Date Type Department Care Team (Late st Contact Info) Description 06/01/2021 Telephone [facility] [address] [place] [phone] Екатерина Robles MD [address], [address] [address] Social History Tobacco Use Types Packs/Day Years [...] on file documented as of this encounter Miscellaneous Notes * Telephone Encounter - Caro Humphrey - 06/01/2021 2:01 PM EDT Patient need a refill on his Plavix documented in this encounter Plan of Treatment Not on file documented as of this encounter Visit Diagnoses Not on filedocumented in this encounter
--- OUTSIDE RECORDS SUMMARY | 2024-08-06 09:49 | XMS_ITS | Encounter Summary ---
Author Organization [employer] Address [id number] [address] [place] [address] Care Team Providers Care Php Website Developer Name Role Phone Unavailable Primary Care Provider Unavailabl e Encounter Details Date Type Department Care Team (Late st Contact Info) Description 08/08/2023 Orders Only [facility] [address] [place] [address] Ernie, Jenniffer, [facility] Severe claudication (CMS-HCC) Social History Tobacco Use Types Packs/Day Years [...] got money to buy more. Never True 07/28/2023 Within the past 12 months th e food we bought just didn't last and we didn't have money to get more. Never True 07/28/2023 Purpose - Life Answer Date Recorded Purpose [...] Name Priority Date/Time Associated Diagnosis Comments VASC ARTERIAL DOPPLER LOWER BILATERAL MULTI LEVEL/PVR Routine 08/08/2023 9:53 AM EDT Severe claudication (CMS-HCC) documented in this encounter Results * Vas art doppler lwr bilat mult lev/PVR (08/08/2023 9:53 AM EDT) Anatomical Region Laterality Modality Vascular Bilateral Ultrasound us Ran Chavez MD CV VASCULAR ORDERABLES Final Result documented in this encounter Visit Diagnoses Diagnosis Severe claudication documented in this encounter
--- OUTSIDE RECORDS SUMMARY | 2024-08-06 09:49 | XMS_ITS | Clinical Summary ---
Author Organization [facility] Address [address] [place] [address] Phone Care Team Providers Care Laundry Attendant Name Role Phone Shaikh FOZIA Allen Primary Care Provider [phone] Jaziel Gomez MD Unavailable Unavailabl e Allergies Active Allergy Reactions Criticality Noted Date Comments Codeine Other 03/25/2023 Medications oxygen (O2) gas therapy Inhale 1 each continuously . 2 LPM Active furosemide (Lasix) 20 mg tabletIndications :Paroxysmal atrial fibrillation (Multi),SSS (sick sinus syndrome) (Multi) TAKE 1 TABLET BY MOUTH DAILY 90 tablet 3 4 Active metoprolol succinate XL (Toprol-XL) 25 mg 24 hr tabletIndications :Paroxysmal atrial fibrillation (Multi),SSS (sick sinus syndrome) (Multi) Take 1 tablet (25 mg) by mouth once daily. 90 tablet 3 4 11/08/19 25 Active atorvastatin (Lipitor) 40 mg tablet Take 1 tablet (40 mg) by mouth once daily. Active Eliquis 5 mg tabletIndications :Paroxysmal atrial fibrillation (Multi) TAKE 1 TABLET BY MOUTH TWICE DAILY 180 tablet 3 5 Active dofetilide (Tikosyn) 250 mcg capsuleIndication s:Paroxysmal atrial fibrillation (Multi) Take 1 capsule (250 mcg) by mouth 2 times a day. 180 capsule 3 5 05/23/19 26 Active Active Problems Problem Noted Date Diagnosed Date Mixed hyperlipidemia 04/25/2024 Assessment & Plan (04/25/2024 10:59 AM EST): Moderate intensity statin BMI 27.0-27.9,adult 05/04/2023 Assessment & Plan (04/25/2024 10:57 AM EST): Weight is up 8 pounds today. Former smoker 05/04/2023 Pacemaker 03/25/2023 Assessment & Plan (04/25/2024 10:54 AM EST): SJM 2272 dual chamber PPM Dec 2023 device interrogation SSS (sick sinus syndrome) (Multi) 03/25/2023 High risk medication use 03/25/2023 Assessment & Plan (04/25/2024 11:00 AM EST): Dofetilide start date June [address], QTC 474. Right bundle branch block CR - labs ordered Paroxysmal atrial fibrillation (Multi) Assessment & Plan (04/25/2024 10:56 AM EST): Diagnosis June 2022 and placed on dofetilide Device interrogations with 5 % mode switching Asymptomatic ECG ST in office today (was not wearing oxygen on ride into office) senior care current use of anticoagulant therapy 0 03/25/2023 Assessment & Plan (04/25/2024 10:56 AM EST): CHADS VASc 2 chronically anticoagulated full dose Eliquis (age 68, wt 80kg) Denies bleeding diathesis Encounters Date Type Department Care Team Description 07/04/2024 Telephone [facility] [address] [place] [address] [place] [phone] Kristy Lewis RN 05/22/2024 Refill [facility] [address] [place] [address] [address] [place] [address] David Mcarthur MA Paroxysmal atrial fibrillation (Multi) 05/11/2024 Refill [facility] [address] [place] [address] Jaziel Gomez MD Paroxysmal atrial fibrillation (Multi) from Last 3 Months Family History Medical History Relation Name Comments Leukemia Father No Known Problems Mother Relation Name Status Comments Father Mother Social History Tobacco Use Types Packs/Day Years Used Date Smoking Tobacco: Former Cigarettes Q uit: 06/2022 Smokeless Tobacco: Never Tobacco Cessation:Counseling Given: Yes Alcohol Use Standard Drinks/Week Comments Yes 4 (1 standard drink = 0.6 oz pur e alcohol) Sex and Gender Information Value Date Recorded Sex Assigned at Not on file Legal Sex Male 11:17 AM EDT Gender Identity Not on file Sexual Orientation Not on file Last Filed Vital Signs Vital Sign Reading Time Taken Comments Blood Pressure 96/58 04/24/2024 3:28 PM EST Pulse 117 04/24/2024 3:28 PM EST Temperature 36.4 C (97.6 F) 07/23/2022 4:03 PM EDT Respiratory Rate - - Oxygen Saturation - - Inhaled Oxygen Concentration - - Weight 80.7 kg (178 lb) 04/24/2024 3:28 PM EST Height 172.7 cm (5' 8 ) 04/24/2024 3:28 PM EST Body Mass Index 27.06 04/24/2024 3:28 PM EST Plan of Treatment Upcoming Encounters Date Type Department Care Team (Late st Contact Info) Description 10/08/2024 1:00 PM EDT Office Visit [facility] [address] [phone] Judy Asif, CARDIAC MONITOR TECHNICIAN-UNDERGROUND HEAVY EQUIPMENT OPERATOR [address] [facility] [place] [address] Health Maintenance Due Date Last Done Comments CT Colonography 1955 Colonoscopy 1955 Colorectal Cancer Screening 1955 Creatinine Level 1955 FIT-DNA (Cologuard) 1955 FIT 1955 Lipid Panel 1955 Medicare Annual Wellness Vis it (AWV) 1955 Potassium Level 1955 Sigmoidoscopy 1955 Diabetes Screening 10/05/1973 Hepatitis C Screening 10/05/1973 Hepatitis A Vaccines (1 of 2 - Risk 2-dose series) 10/05/1974 Pneumococcal Vaccine (1 of 2 - PCV) 10/05/1974 DTaP/Tdap/Td Vaccines (1 - Tdap) 10/05/1977 Zoster Vaccines (1 of 2) 10/05/2005 Hepatitis B Vaccines (1 of 3 - Risk 3-dose series) 2015 RSV High Risk: (Elderly (60+ ) or Population) (1 - Risk 60-74 years 1-dose series) 2015 Echocardiogram 07/12/2023 07/11/2022 COVID-19 Vaccine (1 - 2023-2 5 season) 2023 Influenza Vaccine (Season Ended) 2024 Abdominal Aortic Aneurysm (A AA) Screening Completed 07/22/2023 HIB Vaccines Aged Out No longer eligi [...] on patient's age to complete this topic Procedures Procedure Name Priority Date/Time Associated Diagnosis Comments ECHOCARDIOGRAM 07/11/2022 from Last 3 Months or Most Recently Relevant to Health Maintenance Results * ECHOCARDIOGRAM (07/11/2022) Narrative 07/11/2022 Ordered by an unspecified provider. us Onbase Conversion CV ECHO PROCEDURES Final Resul t from Last 3 Months or Most Recently Relevant to Health Maintenance Insurance MEDICARE PART A AND B MEDICARE PART A AND B Care Teams Laundry Attendant Relationship Specialty Start Date End Date Shaikh Allen MD [address] [place] [address] PCP - General Internal Medicine 05/04/23 Jaziel Gomez MD [address] [place] [address] Consulting Physician Cardiology 05/04/23
--- OUTSIDE RECORDS SUMMARY | 2024-08-06 09:49 | XMS_ITS | Clinical Summary ---
Author Organization [employer] Address [id number] [address] [place] [address] Care Team Providers Care Pcb Designer Name Role Phone Unavailable Primary Care Provider Unavailabl e Allergies Active Allergy Reactions Criticality Noted Date Comments Codeine 11/05/2021 Medications aspirin 325 mg tablet Take 1 tablet (325 mg total) by mouth in the morning. Active ELIQUIS 5 mg tablet Take 1 tablet (5 mg total) by mouth in the morning and 1 tablet (5 mg total) before bedtime. 2 Active digoxin (LANOXIN) 125 mcg tablet Take 1 tablet (125 mcg total) by mouth in the morning. 2 Active dilTIAZem (TIAZAC) 180 MG 24 hr capsule Take 1 capsule (180 mg total) by mouth in the morning. 2 Active metoprolol tartrate (LOPRESSOR) 25 mg tablet Take 1 tablet (25 mg total) by mouth in the morning and 1 tablet (25 mg total) in the evening. Take with meals. 2 Active omeprazole (PriLOSEC) 40 mg capsule TAKE 1 CAPSULE BY MOUTH ONCE DAILY ON AN EMPTY STOMACH 2 Active dofetilide (TIKOSYN) 250 MCG capsule Take 1 capsule (250 mcg total) by mouth in the morning and 1 capsule (250 mcg total) before bedtime. 3 Active furosemide (LASIX) 20 mg tablet Take 1 tablet (20 mg total) by mouth daily. 3 Active sertraline (ZOLOFT) 25 mg tablet Take 1 tablet (25 mg total) by mouth in the morning. 3 Active clopidogreL (PLAVIX) 75 mg tabletIndication s:PAD (peripheral artery disease),Claudic ation TAKE 1 TABLET BY MOUTH IN THE MORNING 90 tablet 3 3 Active Additional Information Patient not taking.Reported on 07/26/2024 aspirin 81 mg chewable tabletIndication s:Severe claudication Chew 1 tablet (81 mg total) and swallow in the morning. 90 tablet 3 4 Active Additional Information Patient not taking.Reported on 07/26/2024 atorvastatin (LIPITOR) 40 mg tabletIndication s:Severe claudication TAKE 1 TABLET BY MOUTH IN THE MORNING 90 tablet 3 5 Active Active Problems Problem Noted Date Diagnosed Date Severe claudication 06/09/2023 Assessment & Plan (07/26/2024 12:33 PM EDT): PVR continue aspirin and statin: 81 mg aspirin and 40 mg atorvastatin. Continue Plavix 75 mg. Assessment & Plan (07/28/2023 10:36 AM EDT): I am add doing aspirin and statin to his medication. He has patent iliac stent. He has infrainguinal disease. The claudication is not significant to indicate intervention. Recommend walking and exercise. He does not smoke. Assessment & Plan (06/09/2023 7:42 PM EDT): 67-year-old gentleman with multiple vascular procedures in the past iliac stent in the left side and bilateral lower extremity bypasses. He does not have any recent testing. He is on aspirin Plavix and statin. We will get PVR and continue aspirin Plavix and statin. I recommended continued to stay active with walking Encounters Date Type Department Care Team Description 07/26/2024 10:00 AM EDT Office Visit [facility] [address] [place] [address] Ran Chavez MD Severe claudication (Primary Dx) 07/26/2024 Travel 05/11/2024 Refill [facility] [address] [place] [address] Ran Chavez MD Severe claudication ([facility]) from Last 3 Months Social History Tobacco [...] Mass Index 25.99 07/26/2024 9:48 AM EDT Plan of Treatment Health Maintenance Due Date Last Done Comments Depression Screening 1967 Adult BMI Follow Up Plan 10/05/1973 DTaP,Tdap and Td Vaccines (1 - Tdap) 10/05/1974 Zoster (Shingles) Vaccine (1 of 2) 10/05/2005 Abdominal Aortic Aneurysm (AAA) Screen 10/05/2020 Fall Risk Screening 10/05/2020 Influenza Vaccine 10/29/2024 Adult BMI Screening 07/26/2025 07/26/2024 Tobacco Screening 07/26/2025 07/26/2024 Medical Devices Not on file Insurance MEDICARE
--- OUTSIDE RECORDS SUMMARY | 2024-08-06 09:49 | XMS_ITS | Encounter Summary ---
Author Organization [employer] Address [id number] [address] [place] [address] Care Team Providers Care Photocomposing Machine Operator Name Role Phone Unavailable Primary Care Provider Unavailabl e Encounter Details Date Type Department Care Team (Late st Contact Info) Description 07/16/2021 Telephone [facility] [address] [place] [phone] Екатерина Robles MD [address] [phone] Social History Tobacco Use Types Packs/Day Years [...] encounter Miscellaneous Notes * Telephone Encounter - Fide Siddiqui - 07/16/2021 10:38 AM EDT Feet and legs have been swollen for a week now; legs feeling heavy; [place]; swelling went down some last night but still concerned will be going to ER today * Telephone Encounter - Nancy Tuttle LPN - 07/16/2021 10:38 AM EDT Patient wanted to go to the ED. documented in this encounter Plan of Treatment Not on file documented as of this encounter Visit Diagnoses Not on filedocumented in this encounter
--- NOTE | 2024-08-06 09:53 | CT_ITS ---
The [address] [address] Patient Name: ALESSANDRA LECHUGA MRN: [id number] date: 1955 Sex: M Assigned Patient Location: CT Current Patient Location: CT Accession/Order Number: [id number] Exam Date: 08/06/2024 12:07 Report Date: 08/06/2024 12:18 At the request of: MELITON HUGHES DO Procedure: CT lung screening low-dose LOW-DOSE SCREENING CHEST CT WITHOUT CONTRAST COMPARISON: 07/22/2023 CLINICAL DATA: Former smoker for approximately 49 years. Spiral axial unenhanced low-dose images were obtained through the chest. Images were reviewed using both narrow and wide window settings. This CT exam was performed using one or more following dose reduction techniques: Automated exposure control, adjustment of the mA and/or kV according to patient size, or use of iterative reconstruction technique. There is a left-sided pacemaker. The heart is normal in size. No pericardial effusion is seen. Coronary artery disease is visualized. There is no aortic aneurysm. Mild plaque at the aortic arch and proximal great vessels. There are calcified bilateral hilar lymph nodes. No pathologic adenopathy is present. A developing 8 mm nodular density is seen within the main stem bronchus on the left. There is subtle dextroscoliotic curvature. Mild degenerative changes are visualized at the spine. There is obstructive lung disease with airspace lucencies. There is minor atelectasis or scarring. No developing consolidation, pleural effusion or pneumothorax is seen. There is suspected mild right lower lobe bronchiectasis. There are some calcified granulomas. A 10 - 11 mm noncalcified nodule is again seen at the right lower lobe. No new nodularity is present. Limited cuts through the upper abdomen show calcified hepatic and splenic granulomas. Adrenal limb thickening is again visualized, slightly nodular on the left. CT/CT lung screening low-dose IMPRESSION: OBSTRUCTIVE AND GRANULOMATOUS DISEASE. STABLE NONCALCIFIED RIGHT LOWER LOBE NODULE. DEVELOPING LEFT MAINSTEM ENDOBRONCHIAL NODULE. PULMONARY FOLLOW-UP IS SUGGESTED WITH ADDITIONAL IMAGING EVALUATION IS WARRANTED. Lung RADS category 2 - benign nodularity and developing left endobronchial nodule Twelve-month low-dose CT follow-up suggested. Impression dictated by: Gretchen Anton M.D. 08/06/2024 12:18 PM Dictation Location: [place] [address] Electronically authenticated by: [id number] Y Date: 08/06/2024 12:18
== END 2024-08-06 09:46 | disposition home or self-care (01) ==
LOC: CT 09:47
PROVIDERS: Visit Provider Internal Medicine
DX: R91.8 Other nonspecific abnormal finding of lung field (principal); Z87.891 Personal history of nicotine dependence; Z12.2 Encounter for screening for malignant neoplasm of respiratory organs; R91.1 Solitary pulmonary nodule
CPT/HCPCS: 71271

== ENCOUNTER 2024-09-07 12:56 | Outpatient (OUT) | payer MEDICARE, MEDICAID, SELFPAY ==
--- NOTE | 2024-09-07 13:03 | CT_ITS ---
The [address] [address] Patient Name: ALESSANDRA LECHUGA MRN: [id number] date: 1955 Sex: M Assigned Patient Location: CT Current Patient Location: CT Accession/Order Number: [id number] Exam Date: 09/07/2024 14:10 Report Date: 09/07/2024 14:16 At the request of: MELITON HUGHES DO Procedure: CT chest wo con CT chest wo con 09/07/2024 1:18 PM SIGN AND SYMPTOMS: Follow-up endobronchial nodule TECHNIQUE: Multidetector CT axial slices of the chest were obtained without IV contrast. Multiplanar reformats were performed and viewed on a separate workstation and reviewed to further define anatomy and possible pathology. CT was performed with one or more of the following dose reduction techniques: Automated exposure control, adjustment of the mA and/or kV according to patient size, or use of iterative reconstruction technique. COMPARISON: 08/06/2024. FINDINGS: Lower neck: Thyroid gland within normal limits, no supraclavicle adenopathy. Vessels: Atherosclerotic changes are noted in the thoracic aorta, origins of great vessels, and within the coronary arteries. Mediastinum and Justine: There are a few calcified left-sided mediastinal lymph nodes with calcified bilateral hilar lymph nodes. Heart: Normal size. No pericardial effusion. Airways: The previously suspected endobronchial nodule is no longer present and may have represented the endotracheal foreign body or secretions. A small amount of dependent secretions are noted in the right mainstem bronchus with secretions noted along the lateral wall of the distal trachea. Lungs: There is a similar 1 cm noncalcified nodule in the right lower lobe. Unchanged calcified granulomas are noted in the left lower lobe. Emphysematous changes are redemonstrated bilaterally. Pleura: Within normal limits. Chest Wall: Within normal limits. Upper Abdomen: Calcified granulomas are noted in the liver and spleen. Bones: Degenerative changes are present in the thoracic spine. CT/CT chest wo con IMPRESSION: The previously suspected endobronchial nodule is no longer present and may have represented the endotracheal foreign body or secretions. A small amount of dependent secretions are noted in the right mainstem bronchus with secretions noted along the lateral wall of the distal trachea. There is a similar 1 cm noncalcified nodule in the right lower lobe. Unchanged calcified granulomas are noted in the left lower lobe. Emphysematous changes are redemonstrated bilaterally. Impression dictated by: Gopal Mckinney M.D. 09/07/2024 2:16 PM Dictation Location: [place] [address] Electronically authenticated by: [id number] Y Date: 09/07/2024 14:16
== END 2024-09-07 12:57 | disposition home or self-care (01) ==
LOC: CT 12:57
PROVIDERS: Visit Provider Internal Medicine
DX: J98.09 Other diseases of bronchus, not elsewhere classified (principal); R91.8 Other nonspecific abnormal finding of lung field
CPT/HCPCS: 71250

== ENCOUNTER 2024-09-14 12:48 | Outpatient (OUT) | payer MEDICARE, MEDICAID, SELFPAY ==
--- OUTSIDE RECORDS SUMMARY | 2024-08-06 11:47 | XMS_ITS ---
Author Organization The [facility] [place] Address [address] [place] [address] Care Team Providers Care Geophysical Computer Name Role Phone Khang Pham MD Primary Care Provider Unavailab penelope RodriguezHenry Unavailable [phone] REASON FOR VISIT Abnormal LDCT Encounters Encounter Location Date Provider Diagnosis [facility] [address] [place] [address] 08/06/2024 Henry Michael Plan Of Treatment Next Appt Details Provider Name:Henry Thomas, 07/30/2025 10:00:00 AM, [address] [place], [address], Progress Notes * Jaime GEORGESDOB:[birth year] (68 yo M)Acc No.[id number]:08/06/2024 Patient: Jaime JORDAN :1955 A ge:68 Y S ex:Male Address:[address] [place] [address], [phone] * true * Date: Generated for Yenii earle/Fabeleng/eTransmitting on: 0 09/14/2024 12:53 PM EDT
--- OUTSIDE RECORDS SUMMARY | 2024-08-07 09:00 | XMS_ITS ---
Author Organization The [facility] in [place] Address [address] [place] [address] Care Team Providers Care Director Of Pediatric Rehabilitation Name Role Phone Khang Pham MD Primary Care Provider Unavailab Henry Azevedo Unavailable [phone] Allergies Allergen (clinical drug ingredient) Drug/Non Drug Allergy documented on EMR Reaction Allergy Type Onset Date Status codeine Codeine nausea and vomiting Drug Allergy Active REASON FOR VISIT DISCUSS ABN. CT CHEST Medications Medication SIG (Take, Route, Frequency, Duration) Notes Start Date End Date Status Eliquis 5 MG Oral for 21 Days Active Furosemide 20 MG 1 tablet Orally Once a day Active Metoprolol Succinate ER 25 MG Oral for 21 Days Active Atorvastatin Calcium 40 MG Oral for 75 Days Active Dofetilide 250 MCG 1 capsule Orally Twi ce a day Active Social History Tobacco Use: Social History Observation Description Date Details (start date - stop date) Former Smoker NA - NA Tobacco Control (Standard) Question Answer Notes Tobacco use: Former smoker How long has it been since y ou last smoked? 1-5 years Additional Findings: Tobacco non-user Ex -moderate cigarette smoker (10-19/day) Problems Problem Type SNOMED Code ICD Code Onset Dates Problem Status W/U Status Risk Notes Problem Lesion of bronchus (613355354) Lesion of bronchus (J98.09) Active confirmed Problem Paroxysmal atrial fibrillation (890799820) Paroxysmal atrial fibrillation (I48.0) Active confirmed Problem residential (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 of anticoagulants (Z79.01) Active confirmed Vital Signs Weight 178.2 lbs 08/07/2024 Height 69 in 08/07/2024 Blood pressure systolic 126 mm Hg 08/08/19 25 Blood pressure diastolic 71 mm Hg 025 Temperature 97.1 degrees Fahrenheit 08/08/19 25 Heart Rate 101 /min 08/07/2024 Respiratory Rate 20 /min 08/07/2024 BMI 26.31 kg/m2 08/07/2024 Oximetry 90 % 08/07/2024 2L O2 -Activity/Resting Encounters Encounter Location Date Provider Diagnosis Pulmonary Medicine [address] [address] 08/07/2024 Henry Thomas Lesion of bronchus J98.09 ; Paroxysmal atrial fibrillation I48.0 and residential (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 of anticoagulants Z79.01 Assessments Encounter Date Diagnosis (ICD Code) Assessment Notes Treatment Notes Treatment Clinical Notes Section Notes 08/07/2024 Lesion of bronchus (ICD-10 - J98.09) 8.4mm left mainstem bronchus endobronchial lesion of unclear etiology - new on LDCT 08/06/2024 compared to 07/22/2023 (remainder of lungs were unremarkable). Explained that I cannot determine between a mucus plug vs. an actual mass. Recently diagnosed with skin cancer (melanoma). I recommended bronchoscopy to evaluate the bronchus - if no mass, then I am done. If there is a mass, biopsies would be necessary and Eliquis would need to be held for ~3 days prior d/t the risk of bleeding. He will need cardiology clearance given history of PAF, pacemaker. Discussed additional risks of bronchoscopy including pain and infection, along with pneumothorax and vent-dependent respiratory failure. He had anesthesia 06/2022 without issues. The other option, not preferred in my opinion, is to repeat the CT chest in 1 month, with the exact same plan as above. The benefit is to avoid a procedure if it resolves; the risk is that the lesion grows larger. The patient elected to repeat a CT chest in 1 month (once again, not my preferred recommendation). He was counseled if he has more dyspnea, left sided pain/pressure, developing a wheeze/stridor, or has hemoptysis to notify the office and/or go straight to the ER for further evaluation - they can do a CT chest sooner. He voiced understanding. Will F/U 1 month, which is soon after CT is to have been completed. 08/07/2024 Paroxysmal atrial fibrillation (ICD-10 - I48.0) Currently RRR. Will need preoperative cardiac evaluation. 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 Plan Of Treatment Treatment Notes Assessment Notes Lesion of bronchus 8.4mm left mainstem bronchus endobronchial lesion of unclear etiology - new on LDCT 08/06/2024 compared to 07/22/2023 (remainder of lungs were unremarkable). Explained that I cannot determine between a mucus plug vs. an actual mass. Recently diagnosed with skin cancer (melanoma). I recommended bronchoscopy to evaluate the bronchus - if no mass, then I am done. If there is a mass, biopsies would be necessary and Eliquis would need to be held for ~3 days prior d/t the risk of bleeding. He will need cardiology clearance given history of PAF, pacemaker. Discussed additional risks of bronchoscopy including pain and infection, along with pneumothorax and vent-dependent respiratory failure. He had anesthesia 06/2022 without issues. The other option, not preferred in my opinion, is to repeat the CT chest in 1 month, with the exact same plan as above. The benefit is to avoid a procedure if it resolves; the risk is that the lesion grows larger. The patient elected to repeat a CT chest in 1 month (once again, not my preferred recommendation). He was counseled if he has more dyspnea, left sided pain/pressure, developing a wheeze/stridor, or has hemoptysis to notify the office and/or go straight to the ER for further evaluation - they can do a CT chest sooner. He voiced understanding. Will F/U 1 month, which is soon after CT is to have been completed. Paroxysmal atrial fibrillation Currently RRR. Will need preoperative cardiac evaluation. 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 Next Appt Details Follow Up: 1 Month, Reason: Endobronchial lesion (CT chest) Provider Name:Henry Thomas, 07/30/2025 10:00:00 AM, [address] [place], [address], Progress Notes * Yared GEORGES:[birth year] (68 yo M)Acc No.[id number]:08/07/2024 Progress Note Patient: Jaime JORDAN Provider: Ronan Thomas DO :1955 A ge:68 Y S ex:Male Date:08/07/2024 Address:[address] [place], [place] [id number] Pcp:Khang Pham MD Check In:01:02 PM ESTCheck O ut:01:41 PM EST Subjective: * Chief Complaints: * D ISCUSS ABN. CT CHEST * HPI: G eneral: Patient was just seen in the office 07/31/2024. LDCT was overdue and it was completed yesterday, 08/06/2024. The report was abnormal, noting a new endobronchial lesion in the left mainstem bronchus when compared to 07/22/2023. The area is ~8.4mm and is present on all 3 views on soft tissue windows. Due to the complexity of this finding, I requested the patient come in to review the findings. I personally reviewed the imaging with the patient. I explained that I cannot tell if this is a mass or simply a mucus plug. He admits to a daily non-productive cough - no excessive mucus. No hemoptysis. Denies worsening dyspnea. No wheezing. Denies weight loss, decreased appetite, or night sweats.� He follows with [facility]. He has a pacemaker and is on Eliquis for PAF. Last surgery with anesthesia was 06/2022 for a pacemaker exchange. He recently had skin cancer removed on his back and Eliquis was held for 3 days. MA Intake Comments:. Patient presents for a follow-up after a recent Abnormal CT Chest. Patient is currently on 2L O2 at home. DME:[facility]. Patient complains of SOB & Cough. Patient denies tobacco use today. Patient denies any abnormal bleeding, fevers, chills or night sweats. Patient is under the care of & [facility]. * ROS: G eneral/Constitutional: Fever or sweats d enies. C hange of appetite d enies. C hills d enies. W eight Change d enies. H EENT: Dry mouth d enies. S ore throat d enies. O ral Ulcers d enies. P ost Nasal Drip D enies. C ongestion D enies. H oarseness�Denies. C ardiovascular: Tachycardia d enies. C hest pain d enies. P alpitations d enies. R espiratory: Chest tightness d enies. P leurisy D enies. D yspnea a dmits. C ough d aily non-productive cough. H emoptysis d enies. W heezing d enies. G astrointestinal: Acid Reflux/GERD/Heartburn d enies. D ysphagia d enies. M usculoskeletal: Arthralgias/joint pain D enies. S kin: Easy bruising d enies. R sunil d enies. � N eurologic: Seizures d enies. T remor d enies. H ematology: Abnormal Bleeding d enies. P sychiatric: Anxiety d enies. 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2 Centrilobular emphys hugo Modified On:08/03/2023U Status:confirmed J96.11 Chronic respiratory failure with hypoxia Modified On:11/25/2022U Status:confirmed * Medical History: * Surgical History: P acemaker Insertion 07/16/2022Left iliac artery stent cataract removal inguinal hernia repair melanoma excision * Hospitalization/Major Diagno stic Procedure: 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 * Social History: T obacco Use: T obacco Control (Standard) T obacco use: F ormer smoker H ow long has it been since you last smoked?�1-5 years A dditional Findings: Tobacco non-user E x-moderate cigarette smoker (10-19/day) Electronic Cigarette use C urrent user N o LM: Additional Tobacco Questions N umber of Years Pt Smoked: 4 9 N umber of Packs per Day: . 5 When did you stop smokin07/10/2022. M iscellaneous: O ccupation O ccupation: R etired [employer] Pets: none. D rugs/Alcohol: D rugs H ave you used drugs other than those for medical reasons in the past 12 months? N o D oes the Patient have a History of Drug Abuse in the Past? N o Caffeine I ntake: n one Do you drink alcohol?: Yes, Socially. Do you smoke marijuana?: Denies. * Medications: T akingAtorvastatin Calcium 40 MG Tablet Oral Dofetilide 250 MCG Capsule 1 capsule Orally Twice a day Eliquis(Apixaban) 5 MG Tablet Oral Furosemide 20 MG Tablet 1 tablet Orally Once a day Metoprolol Succinate ER 25 MG Tablet Extended Release 24 Hour Oral Medication List reviewed and reconciled with the patientTaking Atorvastatin Calcium 40 MG Tablet Oral Taking Dofetilide 250 MCG Capsule 1 capsule Orally Twice a day Taking Eliquis(Apixaban) 5 MG Tablet Oral Taking Furosemide 20 MG Tablet 1 tablet Orally Once a day Taking Metoprolol Succinate ER 25 MG Tablet Extended Release 24 Hour Oral Medication List reviewed and reconciled with the patient * Allergies: C odeine: nausea and vomiting - Side Effects - Criticality [place][Allergies Verified] Objective: * Vitals: W t:178.2lbs, Ht: 69 in, BP: sittin/58 mm Hg,repeat:126/71mm Hg, Temp:Forehead:97.1F, HR: 106 /min,101/min, RR:20/min, BMI:26.31Index, Oxygen sat %: Oxygen 2l:87 %,Oxygen 2l:90%, Ht-cm: 175.26 cm, Wt-k.83 kg. 2L O2 -Activity/Resting. * Examination: E xam: GENERAL APPEARANCE: A ppears stated age. Skin N ormal. Nose W earing nasal cannula. Mouth P ink and moist. Oropharynx/Tongue M allampati Class I. Trachea M idline. Chest N ormal. Respiratory Normal M ovements, E ffort N ormal. Auscultation S till diminished but clear breath sounds - more diminished on the left. No wheezes, crackles, rhonchi, stridor. Cardiac R egular rate and rhythm. Gastrointestinal N ormal. Vascular N o edema. Musculoskeletal N ormal posture. Neurological F ocal, intact. Psychiatric A lert and oriented x3, anxious. Mentation/Cognition N ormal. Assessment: * Assessment: 1. L esion of bronchus - J98.09 (Primary) 2 . P aroxysmal atrial fibrillation - I48.0 3 . L joycelyn term (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 of anticoagulants - Z79.01 � Plan: * Treatment: 2. P aroxysmal atrial fibrillation Notes: Currently RRR. Will need preoperative cardiac evaluation. 3. L joycelyn term (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 of anticoagulants Notes: On Eliquis, would need to be stopped prior to bronchoscopy. * Procedure Codes: * Preventive Medicine: COVID Vaccination: H as patient had COVID Vaccination? COVID Vaccination N o Patient Declined Immunization Status: P neumovacc P t Refused. I nfluenza P t Refused. Screenings/Counseling: F ALL RISK SCREENING Fall Risk Assessment: O ne fall with injury in the past year Are you afraid of falling? N o T OBACCO ACTION PLAN Patient counselled on the dangers of tobacco use and urged to quit. 0 07/03/2024 Former Education on smoking effects provided�07/03/2024 Former F ALYSIA EXCLUSION Reason: P atient Reason refused/declined Type of Patient Reason: D rug declined by patient * Follow Up: 1 Month (Reason: Endobronchial lesion (CT chest)) * * Sign off status: Completed Visit Status: C HK (Check Out) true * Provider: Ronan Thomas DO Date: 0 08/07/2024 Generated for Amara og/Eugenio/eTransmitting on: 0 09/14/2024 12:53 PM EDT History and Physical Notes * HPI (History of Present Illness) Category Sub-Category Detail Notes Category Not es General Patient present s for a follow-up after a recent Abnormal CT Chest. Patient is currently on 2L O2 at home. DME:[facility]. Patient complains of SOB & Cough. Patient denies tobacco use today. Patient denies any abnormal bleeding, fevers, chills or night sweats. Patient is under the care of & [facility]. Examination Category Sub-Category Detail Notes Category Not es Exam GENERAL APPEARANCE: Appears stated age Skin Normal Nose Wearing nasal cannul a Mouth [place] and moist Trachea Midline Chest Normal Respiratory Normal Movements, Ef fort Normal Auscultation Still diminished but clear breath sounds - more diminished on the left. No wheezes, crackles, rhonchi, stridor Percussion Egophony Bronchophony Fremitus Whispered pectoriloquy Cardiac Regular rate and rhy thm Gastrointestinal Normal Vascular No edema Musculoskeletal Normal posture Neurological Focal, intact Psychiatric Alert and oriented x 3, anxious Mentation/Cognition Normal Oropharynx/Tongue Mallampati Class I Oropharynx
--- OUTSIDE RECORDS SUMMARY | 2024-09-11 07:30 | XMS_ITS ---
Author Organization [facility] in [place] Address [address] [place] [address] Care Team Providers Care Prop Maker Name Role Phone Khang Pham MD Primary Care Provider Unavailab penelope Henry Thomas Unavailable [phone] Allergies Allergen (clinical drug ingredient) Drug/Non Drug Allergy documented on EMR Reaction Allergy Type Onset Date Status codeine Codeine nausea and vomiting Drug Allergy Active REASON FOR VISIT 1m F/U - Endobronchial lesion (CT chest) Medications Medication SIG (Take, Route, Frequency, Duration) Notes Start Date End Date Status Metoprolol Succinate ER 25 MG Oral for 21 Days Active Furosemide 20 MG 1 tablet Orally Once a day Active Atorvastatin Calcium 40 MG Oral for 75 Days Active Eliquis 5 MG Oral for 21 Days Active Dofetilide 250 MCG 1 capsule [...] Tobacco non-user Ex -moderate cigarette smoker (10-19/day) Vital Signs Weight 176.8 lbs 09/11/2024 Height 69 in 09/11/2024 Blood pressure systolic 122 mm Hg 09/12/19 25 Blood pressure diastolic 79 mm Hg 025 Temperature 96.9 degrees Fahrenheit 09/12/19 25 Heart Rate 106 /min 09/11/2024 Respiratory Rate 20 /min 09/11/2024 BMI 26.11 kg/m2 09/11/2024 Oximetry 91 % 09/11/2024 2L O2- Activity/Resting Encounters Encounter Location Date Provider Diagnosis [facility] [place] [address] [place] [address] 09/11/2024 Henry Thomas Lesion of bronchus J98.09 ; Centrilobular emphysema J43.2 ; Chronic respiratory failure with hypoxia J96.11 ; Solitary pulmonary nodule R91.1 ; Calcified lymph nodes I89.8 and History of tobacco abuse Z87.891 Assessments Encounter Date Diagnosis (ICD Code) Assessment Notes Treatment Notes Treatment Clinical Notes Section Notes 09/11/2024 Lesion of bronchus (ICD-10 - J98.09) 8.4mm left mainstem bronchus endobronchial lesion new on LDCT 08/06/2024 compared to 07/22/2023. Resolved on repeat CT chest 09/07/2024. This is most consistent with a mucus plug. No further F/U required for this. 09/11/2024 Centrilobular emphysema (ICD-10 - J43.2) Prior treatment: Spiriva (ineffective, dry mouth) Patient has history of refusing PFT and treatment. He does not ask for anything today. 09/11/2024 Chronic respiratory failure with hypoxia (ICD-10 - J96.11) Tlhv-dt-grms encounter performed with the patient to document continued need for supplemental oxygen (O2).-Flow & directions: 2L/min ATC -Continue O2 09/11/2024 Solitary pulmonary nodule (ICD-10 - R91.1) 1.1cm RLL nodule, unchanged on imaging from 09/07/2024, 08/06/2024, 07/22/2023, 07/10/2022, 11/03/2021, and 07/19/2021. 09/11/2024 Calcified lymph nodes (ICD-10 - I89.8) Incidental finding. 09/11/2024 History of tobacco abuse (ICD-10 - Z87.891) 1/2ppd x 49 years, quit 07/10/2022. He will be due for LDCT mid-August 2025. No order generated today d/t closure of [facility] Pulmonology practice this week. He can either get his PCP to order it, re-establish with me next summer to order it, or establish with a new biochemistry teacher. 09/11/2024 Other Plan Of Treatment Treatment Notes Assessment Notes Lesion of bronchus 8.4mm left mainstem bronchus endobronchial lesion new on LDCT 08/06/2024 compared to 07/22/2023. Resolved on repeat CT chest 09/07/2024. This is most consistent with a mucus plug. No further F/U required for this. Centrilobular emphysema Prior treatment: Spiriva (ineffective, dry mouth) Patient has history of refusing PFT and treatment. He does not ask for anything today. Chronic respiratory failure with hypoxia Pmlo-ks-endd encounter performed with the patient to document continued need for supplemental oxygen (O2).-Flow & directions: 2L/min ATC -Continue O2 Solitary pulmonary nodule 1.1cm RLL nodule, unchanged on imaging from 09/07/2024, 08/06/2024, 07/22/2023, 07/10/2022, 11/03/2021, and 07/19/2021. Calcified lymph nodes Incidental finding. History of tobacco abuse 1/pd x 49 years, quit 07/10/2022. He will be due for LDCT mid-August 2025. No order generated today d/t closure of [facility] Pulmonology practice this week. He can either get his PCP to order it, re-establish with me next summer to order it, or establish with a new biochemistry teacher. Next Appt Details Follow Up: 11 Months, Reason : Provider Name:Henry Thomas, 07/30/2025 10:00:00 AM, [address] [place], [address], Progress Notes * ANKUSHJa[birth year]DOB:[birth year] (68 yo M)Acc No.[id number]:09/11/2024 Follow Up Patient: Jaime JORDAN Provider: Ronan Thomas DO :1955 A ge:68 Y S ex:Male Date:09/11/2024 Address:[address] [place], [place] [id number] Pcp:Khang Pham MD Check In:11:20 AM ESTCheck O ut:11:48 AM EST Subjective: * Chief Complaints: * 1 m F/U - Endobronchial lesion (CT chest) * HPI: G eneral: Patient had abnormal CT 08/06/2024 with questionable left main bronchus 8.4mm endobronchial lesion vs. mucus plug. Patient elected to proceed with repeat CT chest in 1 month opposed to bronchoscopy. CT chest was done 09/07/2024. I personally reviewed the imaging and compared it with the 08/06/2024 study with the patient. The suspcious lesion has resolved. This would be most consistent with a mucus plug. Patient denies any increased chest congestion at this time. MA Intake Comments:. Patient presents for a follow up after a recent CT Chest. Patient complains of a cough & SOB. Patient is currently on 2L O2 at home. DME:[facility]. Patient denies fevers,chills or night sweats. * ROS: G eneral/Constitutional: Fever or sweats [...] enies. P leurisy D enies. D yspnea w ith exertion. C ough d aily non-productive cough. H emoptysis d enies. W heezing d enies. G astrointestinal: Acid Reflux/GERD/Heartburn d enies. M usculoskeletal: Arthralgias/joint pain D enies. S kin: Easy bruising d enies. R sunil d enies. � N eurologic: Seizures d enies. T remor d enies. H ematology: Abnormal Bleeding d enies. P sychiatric: Anxiety d enies. 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 Modified On:08/07/2024 Status:confirmed D50.9 Iron deficiency anem ia Modified On:11/25/2022 Status:confirmed Z87.891 History of tobacco a buse Modified On:08/03/2023 Status:confirmed J98.09 Lesion of bronchus Modified On:08/07/2024 Status:confirmed I27.29 Other secondary pulm onary hypertension Modified On:08/09/2022 Status:confirmed I89.8 Calcified lymph node s Modified On:11/25/2022 Status:confirmed I48.0 Paroxysmal atrial fi brillation Modified On:08/07/2024 Status:confirmed J43.2 Centrilobular emphys hugo Modified On:08/03/2023 Status:confirmed J96.11 Chronic respiratory failure with hypoxia Modified On:11/25/2022 Status:confirmed * Medical History: * Surgical History: P acemaker Insertion 07/16/2022Left iliac artery stent cataract removal inguinal hernia repair melanoma excision * Hospitalization/Major Diagno stic Procedure: S ymptomatic junctional bradycardia with [place] [place] * Family History: Unknown Per Patient. [...] Criticality [place][Allergies Verified] Objective: * Vitals: W t:176.8lbs, Ht: 69 in, BP:sittin/79mm Hg, Temp:Forehead:96.9F, HR: 111 /min,106/min, RR:20/min, BMI:26.11Index, Oxygen sat %: Oxygen 2l:88 %,Oxygen 2l:91%, Ht-cm: 175.26 cm, Wt-k.2 kg. 2L O2- Activity/Resting. * Examination: E xam: GENERAL APPEARANCE: A ppears stated age. Skin N ormal. Nose W earing nasal cannula. Mouth P ink and moist. Oropharynx/Tongue M allampati Class I. Trachea M idline. Chest N ormal. Respiratory Normal M ovements, E ffort N ormal. Auscultation D iminished but clear to auscultation. Cardiac R egular rate and rhythm. Gastrointestinal N ormal. Vascular N o edema. Musculoskeletal N ormal posture. Neurological F ocal, intact. Psychiatric A lert and oriented x3. Mentation/Cognition N ormal. Assessment: * Assessment: 1. L esion of bronchus - J98.09 (Primary) 2 . C entrilobular emphysema - J43.2 S pecify :Prior treatment: Spiriva HandiHaler - no benefit; DuoNeb - never used 3 . C hronic respiratory failure with hypoxia - J96.11 4 . Solitary pulmonary nodule - R91.1 5 . C alcified lymph nodes - I89.8 � 6 . H istory of tobacco abuse - Z87.891 S pecify :1/2 ppd x 49 years, quit 07/10/2022 Plan: * Treatment: 2. C entrilobular emphysema Notes: Prior treatment: Spiriva (ineffective, dry mouth) Patient has history of refusing PFT and treatment. He does not ask for anything today. 3. C hronic respiratory failure with hypoxia Notes: Xoso-ey-rrqe encounter performed with the patient to document continued need for supplemental oxygen (O2).-Flow & directions: 2L/min ATC -Continue O2 4. S olitary pulmonary nodule Notes: 1.1cm RLL nodule, unchanged on imaging from 09/07/2024, 08/06/2024, 07/22/2023, 07/10/2022, 11/03/2021, and 07/19/2021. 5. C alcified lymph nodes Notes: Incidental finding. 6. H istory of tobacco abuse Notes: 1/2ppd x 49 years, quit 07/10/2022. He will be due for LDCT mid-August 2025. No order generated today d/t closure of [facility] Pulmonology practice this week. He can either get his PCP to order it, re-establish with me next summer to order it, or establish with a new biochemistry teacher. * Procedure Codes: * Preventive Medicine: COVID [...] tobacco use and urged to quit. 0 09/11/2024 Former Education on smoking effects provided�09/11/2024 Former F ALYSIA EXCLUSION Reason: P atient Reason refused/declined Type of Patient Reason: D rug declined by patient * Follow Up: 1 1 Months * * Sign off status: Completed Visit Status: C HK (Check Out) true * Provider: Ronan Thomas DO Date: 0 09/11/2024 Generated for Amara og/Eugenio/eTransmitting on: 0 09/14/2024 12:53 PM EDT History and Physical Notes * HPI (History of Present Illness) Category Sub-Category Detail Notes Category Not es General Patient present s for a follow up after a recent CT Chest. Patient complains of a cough & SOB. Patient is currently on 2L O2 at home. DME:[facility]. Patient denies fevers,chills or night sweats. Examination Category Sub-Category Detail Notes Category Not es Exam GENERAL APPEARANCE: Appears stated age Skin Normal Nose Wearing nasal cannul a Mouth [place] and moist Trachea Midline Chest Normal Respiratory Normal Movements, Ef fort Normal Auscultation Diminished but clear to auscultation Percussion Egophony Bronchophony Fremitus Whispered pectoriloquy Cardiac Regular rate and rhy thm Gastrointestinal Normal Vascular No edema Musculoskeletal Normal posture Neurological Focal, intact Psychiatric Alert and oriented x 3 Mentation/Cognition Normal Oropharynx/Tongue Mallampati Class I Oropharynx
--- OUTSIDE RECORDS SUMMARY | 2024-09-14 12:53 | XMS_ITS | Encounter Summary ---
Author Organization [facility] Address [address] [place] [address] Phone Care Team Providers Care Director Safety Council Name Role Phone Shaikh FOZIA Allen Primary Care Provider [phone] Jaziel Gmoez MD Unavailable Unavailabl e Judy Asif APRN-PAROLE HEARING OFFICER Unavailable [phone] Encounter Details Date Type Department Care Team (Late st Contact Info) Description 10/18/2022 Scanned Document [facility] [address] [place] [address] Conversion, Onbase Social History Tobacco Use Types [...] Description 10/08/2024 1:00 PM EDT Office Visit [facility] [address] [facility] [address] [place] [address] Judy Asif, BAKERY PASTRY INTERNSHIP-PAROLE HEARING OFFICER [address] [facility] [address] [place], [place] [id number] documented as of this encounter Procedures Procedure Name Priority Date/Time Associated Diagnosis Comments OUTSIDE GENERIC TESTING 10/18/2022 documented in this encounter Results * OUTSIDE GENERIC TESTING (10/18/2022) Anatomical Region Laterality Modality Other Narrative 10/18/2022 Ordered by an unspecified provider. us Onbase Conversion OUTSIDE SCAN Final Result documented in this encounter Visit Diagnoses Not on filedocumented in this encounter Care Teams Director Safety Council Relationship Specialty Start Date End Date Shaikh Allen MD [address] [place] [address] PCP - General Internal Medicine 05/04/23 Judy Asif, BAKERY PASTRY INTERNSHIP-PAROLE HEARING OFFICER [address] [facility] [address] [place] [address] PCP - MSSP ACO Attributed Provider 02/29/24 Jaziel Gomez MD [address] [place] [address] Consulting Physician Cardiology 05/04/23 documented as of this encounter
--- OUTSIDE RECORDS SUMMARY | 2024-09-14 12:53 | XMS_ITS | Encounter Summary ---
Author Organization [facility] Address [address] [place] [address] Care Team Providers Care Streetcar Motorman Name Role Phone Shaikh FOZIA Allen Primary Care Provider [phone] Encounter Details Date Type Department Care Team (Late st Contact Info) Description 07/22/2023 Clinisync Result Encounter [facility] External Department Unsolicited Ran Chavez MD [address], [place] [id number] Social History Tobacco Use Types Packs/Day Years [...] EDT Narrative 07/22/2023 6:04 PM EDT The [address] [address] Cardiology Report Signed Patient: JAIME GEORGES MR#: [id number] : 1955 Acct:[id number] Age/Sex: 67 / M ADM Date: 07/22/23 Loc: US Attending Dr: Ran Chavez M.D. Ordering Physician: Ran Chavez M.D. 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 Signed By: 07/22/23180307/22/231803 DD/ 1359 TD/TT: Air Deodorizer Servicer: Procedure Note Radiology, Radiologist, MD - 07/26/2023 [place] [address] Cardiology Report Signed Patient: MALIHA GEORGES#: [id number] : 6Acct:[id number] Age/Sex: 67 / MADM Date: 07/22/23 Loc: US Attending Dr: Ran Chavez M.D. Ordering Physician: Ran Chavez M.D. 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 Signed By:07/22/23180307/22/231803 DD/ 1359 TD/TT: Air Deodorizer Servicer: Ran Chavez MD IMG XR PROCEDURES Final Resu lt documented in this encounter Visit Diagnoses Not on filedocumented in this encounter Care Teams Streetcar Motorman Relationship Specialty Start Date End Date Shaikh Allen MD PCP - General Internal Medicine 12/14/22 documented as of this encounter
--- OUTSIDE RECORDS SUMMARY | 2024-09-14 12:53 | XMS_ITS | Encounter Summary ---
Author Organization [facility] Address [address] [place] [address] Phone Care Team Providers Care Director Vaccine Name Role Phone Shaikh FOZIA Allen Primary Care Provider [phone] Jaziel Gomez MD Unavailable Unavailabl e Judy Asif APRN-GENERAL OPERATOR Unavailable [phone] Encounter Details Date Type Department Care Team (Late st Contact Info) Description 11/10/2022 Scanned Document [facility] [address] [place] [address] Conversion, Onbase Social History Tobacco Use Types [...] Description 10/08/2024 1:00 PM EDT Office Visit [facility] [address] [facility] [address] [place] [address] Judy Asif, DARON-GENERAL OPERATOR [address] [place] [address] documented as of this encounter Procedures Procedure Name Priority Date/Time Associated Diagnosis Comments ELECTROCARDIOGRAM RHYTHM STRIP 11/10/2022 documented in this encounter Results * ELECTROCARDIOGRAM RHYTHM STRIP (11/10/2022) Narrative 11/10/2022 Ordered by an unspecified provider. us Onbase Conversion ECG ORDERABLES Final Result documented in this encounter Visit Diagnoses Not on filedocumented in this encounter Care Teams Director Vaccine Relationship Specialty Start Date End Date Shaikh Allen MD [address] [place] [address] PCP - General Internal Medicine 05/04/23 Judy Asif, PHARMACY RESOURCE TECH-GENERAL OPERATOR [address] [facility] [address] [place] [address] PCP - MSSP ACO Attributed Provider 02/29/24 Jaziel Gomez MD [address] [place] [address] Consulting Physician Cardiology 05/04/23 documented as of this encounter
--- OUTSIDE RECORDS SUMMARY | 2024-09-14 12:53 | XMS_ITS | Encounter Summary ---
Author Organization [facility] Address [address] [place] [address] Care Team Providers Care Director Of Corporate Sponsorships Name Role Phone Shaikh FOZIA Allen Primary Care Provider [phone] Encounter Details Date Type Department Care Team (Late st Contact Info) Description 07/26/2023 Clinisync Result Encounter [facility] External Department Unsolicited Ran Chavez MD [address], [place] [id number] Social History Tobacco Use Types Packs/Day Years [...] EDT Narrative 07/26/2023 10:15 AM EDT The [address] [address] Ultrasound Report Signed Patient: JAIME GEORGES MR#: [id number] : 1955 Acct:[id number] Age/Sex: 67 / M ADM Date: 07/22/23 Loc: US Attending Dr: Ran Chavez M.D. Ordering Physician: Ran Chavez M.D. Date of Service: 07/22/23 Procedure(s): US arterial duplex LE BI Accession Number(s): [id number] cc: Ran Chavez M.D.; Physician,Non-Staff Shakir [place] [address] Patient Name: JAIME GEORGES MRN: [facility]:[id number] date: 1955 Sex: M Assigned Patient Location: US Current Patient Location: CT Accession/Order Number: [id number] Exam Date: 07/22/2023 10:09 Report Date: 07/26/2023 [...] Signed By: 07/26/23 1015 DD/ 1012 TD/TT: Speech Writer: Procedure Note Radiology, Radiologist, - 07/26/2023 [place] [address] Ultrasound Report Signed Patient: TAMI GEORGESR#: [id number] : 1955cct:[id number] Age/Sex: 67 / MADM Date: 07/22/23 Loc: US Attending Dr: Ran Chavez M.D. Ordering Physician: Ran Chavez M.D. Date of Service: 07/22/23 Procedure(s): US arterial duplex LE BI Accession Number(s): [id number] cc: Ran Chavez M.D.; Physician,Non-Staff Shakir [place] [address] Patient Name: JAIME GEORGES MRN: [facility]:[id number] date: 1955 Sex: M Assigned Patient Location: US Current Patient Location: CT Accession/Order Number: [id number] Exam Date: 07/22/2023 10:09 Report Date: 07/26/2023 [...] M.D. Signed By:07/26/23 1015 DD/ 1012 TD/TT: Speech Writer: [facility] Jackie Chavez MD IMG PROCEDURES Final Resu lt documented in this encounter Visit Diagnoses Not on filedocumented in this encounter Care Teams Director Of Corporate Sponsorships Relationship Specialty Start Date End Date Shaikh Allen MD PCP - General Internal Medicine 12/14/22 documented as of this encounter
--- OUTSIDE RECORDS SUMMARY | 2024-09-14 12:53 | XMS_ITS | Encounter Summary ---
Author Organization [facility] Address [address] [place] [address] Care Team Providers Care Apprentice Pattern Maker Name Role Phone Shaikh FOZIA Allen Primary Care Provider [phone] Encounter Details Date Type Department Care Team (Late st Contact Info) Description 07/22/2023 Clinisync Result Encounter [facility] External Department Unsolicited Ran Chavez MD [address], [place] [phone] Social History Tobacco Use Types Packs/Day Years [...] EDT Narrative 07/22/2023 1:07 PM EDT The [address] [address] Ultrasound Report Signed Patient: JAIME GEORGES MR#: [id number] : 1955 Acct:[id number] Age/Sex: 67 / M ADM Date: 07/22/23 Loc: US Attending Dr: Ran Chavez M.D. Ordering Physician: Ran Chavez M.D. Date of Service: 07/22/23 Procedure(s): US abdominal aortic aneurysm Accession Number(s): [id number] cc: Ran Chavez M.D.; Physician,Non-Staff Shakir The [place] [id number] Patient Name: JAIME GEORGES MRN: [facility]:[id number] date: 1955 Sex: M Assigned Patient Location: US Current Patient Location: US Accession/Order Number: [id number] Exam Date: 07/22/2023 10:09 Report Date: 07/22/2023 [...] Signed By: 07/22/23 1307 DD/ 1305 TD/TT: Jewel Hole Driller: Procedure Note Radiology, Radiologist, MD - 07/22/2023 [place] [address] Ultrasound Report Signed Patient: TAMI GEORGESR#: [id number] : 1955cct:[id number] Age/Sex: 67 / MADM Date: 07/22/23 Loc: US Attending Dr: Ran Chavez M.D. Ordering Physician: Ran Chavez M.D. Date of Service: 07/22/23 Procedure(s): US abdominal aortic aneurysm Accession Number(s): [id number] cc: Ran Chavez M.D.; Physician,Non-Staff Shakir The [place] [address] Patient Name: JAIME GEORGES MRN: [facility]:[id number] date: 1955 Sex: M Assigned Patient Location: US Current Patient Location: US Accession/Order Number: [id number] Exam Date: 07/22/2023 10:09 Report Date: 07/22/2023 [...] M.D. Signed By:07/22/23 1307 DD/ 1305 TD/TT: Jewel Hole Driller: [facility] PROC[facility] Final Resu lt documented in this encounter Visit Diagnoses Not on filedocumented in this encounter Care Teams Apprentice Pattern Maker Relationship Specialty Start Date End Date Shaikh Allen MD PCP - General Internal Medicine 12/14/22 documented as of this encounter
--- OUTSIDE RECORDS SUMMARY | 2024-09-14 12:53 | XMS_ITS | Clinical Summary ---
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 age, HTN, CHF, vascular disease Continue eliquis anticoagualtion- denied bleeding tendencies Currently in rhythm per assessment Continue diltiazem, digoxin and metoprolol as prescribed Peripheral vascular disease 08/10/2021 Overview (03/01/2023): Last Assessment & Plan: No concerning symptoms today, strongly recommended to continue medication regimen and to quit smoking Encounters Date Type Department Care Team Description 08/06/2024 Clinisync Result Encounter [facility] External Department Unsolicited Provider, Generic External Data from Last 3 Months Social History Tobacco [...] Procedure Name Priority Date/Time Associated Diagnosis Comments CT LUNG SCREENING LOW DOSE 08/06/2024 12:18 PM EDT from Last 3 Months Results * CT LUNG SCREENING LOW DOSE (08/06/2024 12:18 PM EDT) Anatomical Region Laterality Modality Other 08/06/2024 12:1 8 PM EDT Narrative 08/06/2024 12:21 PM EDT [address] [address] [address] Scan Report Signed Patient: JAIME GEORGES MR#: [id number] : 1955 Acct:[id number] Age/Sex: 68 / M ADM Date: 08/06/24 Loc: CT Attending Dr: Meliton Hughes D.O. Ordering Physician: Meliton Hughes D.O. Date of Service: 08/06/24 Procedure(s): CT lung screening low-dose Accession Number(s): [id number] cc: JOSE MANUEL NAIDU [address] [address] Patient Name: JAIME GEORGES MRN: [id number] date: 1955 Sex: M Assigned Patient Location: CT Current Patient Location: CT Accession/Order Number: [id number] Exam Date: 08/06/2024 12:07 Report Date: 08/06/2024 12:18 At the request of: MELITON HUGHES DO Procedure: CT lung screening low-dose LOW-DOSE SCREENING CHEST CT WITHOUT CONTRAST COMPARISON: 07/22/2023 CLINICAL DATA: Former smoker for approximately 49 years. Spiral axial unenhanced low-dose images were obtained through the chest. Images were reviewed using both narrow and wide window settings. This CT exam was performed using one or more following dose reduction techniques: Automated exposure control, adjustment of the mA and/or kV according to patient size, or use of iterative reconstruction technique. There is a left-sided pacemaker. The heart is normal in size. No pericardial effusion is seen. Coronary artery disease is visualized. There is no aortic aneurysm. Mild plaque at the aortic arch and proximal great vessels. There are calcified bilateral hilar lymph nodes. No pathologic adenopathy is present. A developing 8 mm nodular density is seen within the main stem bronchus on the left. There is subtle dextroscoliotic curvature. Mild degenerative changes are visualized at the spine. There is obstructive lung disease with airspace lucencies. There is minor atelectasis or scarring. No developing consolidation, pleural effusion or pneumothorax is seen. There is suspected mild right lower lobe bronchiectasis. There are some calcified granulomas. A 10 - 11 mm noncalcified nodule is again seen at the right lower lobe. No new nodularity is present. Limited cuts through the upper abdomen show calcified hepatic and splenic granulomas. Adrenal limb thickening is again visualized, slightly nodular on the left. CT/CT lung screening low-dose IMPRESSION: OBSTRUCTIVE AND GRANULOMATOUS DISEASE. STABLE NONCALCIFIED RIGHT LOWER LOBE NODULE. DEVELOPING LEFT MAINSTEM ENDOBRONCHIAL NODULE. PULMONARY FOLLOW-UP IS SUGGESTED WITH ADDITIONAL IMAGING EVALUATION IS WARRANTED. Lung RADS category 2 - benign nodularity and developing left endobronchial nodule Twelve-month low-dose CT follow-up suggested. Impression dictated by: Gretchen Anton M.D. 08/06/2024 12:18 PM Dictation Location: [place] [address] Electronically authenticated by: [id number] Y Date: 08/06/2024 12:18 Dictated By: Gretchen Anton M.D. Signed By: 08/06/24 1221 DD/ 1218 TD/TT: Pitching Coach: Procedure Note Radiology, Radiologist, - 08/06/[address] [address] [address] Scan Report Signed Patient: MALIHA GEORGES#: [id number] : 1955cct:[id number] Age/Sex: 68 / MADM Date: 08/06/24 Loc: CT Attending Dr: Meliton Hughes D.O. Ordering Physician: Meliton Hughes D.O. Date of Service: 08/06/24 Procedure(s): CT lung screening low-dose Accession Number(s): [id number] cc: JOSE MANUEL NAIDU [place] [address] Patient Name: JAIME GEORGES MRN: [id number] date: 1955 Sex: M Assigned Patient Location: CT Current Patient Location: CT Accession/Order Number: [id number] Exam Date: 08/06/2024 12:07 Report Date: 08/06/2024 12:18 At the request of: MELITON HUGHES DO Procedure: CT lung screening low-dose LOW-DOSE SCREENING CHEST CT WITHOUT CONTRAST COMPARISON: 07/22/2023 CLINICAL DATA: Former smoker for approximately 49 years. Spiral axial unenhanced low-dose images were obtained through the chest. Images were reviewed using both narrow and wide window settings. This CTexam was performed using one or more following dose reduction techniques:Automated exposure control, adjustment of the mA and/or kV according to patientsize, or use of iterative reconstruction technique. There is a left-sided pacemaker. The heart is normal in size. Nopericardial effusion is seen. Coronary artery disease is visualized. There is noaortic aneurysm. Mild plaque at the aortic arch and proximal great vessels.There are calcified bilateral hilar lymph nodes. No pathologic adenopathy is present. A developing 8 mm nodular density is seen within the main stem bronchus on the left. There is subtle dextroscoliotic curvature. Mild degenerative changes are visualized at the spine. There is obstructive lung disease with airspace lucencies. There is minor atelectasis or scarring. No developing consolidation, pleural effusion or pneumothorax is seen. There is suspected mild right lower lobe bronchiectasis. There are some calcified granulomas. A 10 - 11 mm noncalcified nodule is again seen at the right lower lobe. No newnodularity is present. Limited cuts through the upper abdomen show calcified hepatic and splenic granulomas. Adrenal limb thickening is again visualized, slightly nodularon the left. CT/CT lung screening low-dose IMPRESSION: OBSTRUCTIVE AND GRANULOMATOUS DISEASE. STABLE NONCALCIFIED RIGHT LOWER LOBE NODULE. DEVELOPING LEFT MAINSTEM ENDOBRONCHIAL NODULE. PULMONARY FOLLOW-UP IS SUGGESTED WITH ADDITIONAL IMAGING EVALUATION IS WARRANTED. Lung RADS category 2 - benign nodularity and developing left endobronchial nodule Twelve-month low-dose CT follow-up suggested. Impression dictated by: Gretchen Anton M.D. 08/06/2024 12:18 PM Dictation Location: [place] [address] Electronically authenticated by: [id number] Y Date: 2:18 Dictated By: Gretchen Anton M.D. Signed By:08/06/24 1221 DD/ 1218 TD/TT: Pitching Coach: Generic External Data Provider [facility] Final Result from Last 3 Months Insurance MEDICARE Care Teams Project Hire Relationship Specialty Start Date End Date Shaikh Allen MD PCP - General Internal Medicine 12/14/22
--- OUTSIDE RECORDS SUMMARY | 2024-09-14 12:53 | XMS_ITS | Encounter Summary ---
Author Organization [facility] Address [address] [place] [address] Phone Care Team Providers Care Automatic Teller Machine Servicer Name Role Phone Shaikh FOZIA Allen Primary Care Provider [phone] Jaziel Gomez MD Unavailable Unavailabl e Judy Asif APRN-PRODUCT ASSEMBLER Unavailable [phone] Encounter Details Date Type Department Care Team (Late st Contact Info) Description 11/08/2022 Orders Only [facility] [address] [place] [address] Conversion, Onbase Social History Tobacco Use Types [...] Description 10/08/2024 1:00 PM EDT Office Visit [facility] [address] [facility] [address] [place] [address] Judy Asif, DARON-PRODUCT ASSEMBLER [address] [facility] [address] [place] [address] Scheduled Orders Name Type Priority Associated Diagnoses Orde r Schedule OUTSIDE LAB SCAN Lab Ordered: 11/08/2022 documented as of this encounter Visit Diagnoses Not on filedocumented in this encounter Care Teams Automatic Teller Machine Servicer Relationship Specialty Start Date End Date Shaikh Allen MD [address] [place] [address] PCP - General Internal Medicine 05/04/23 Judy Asif, V BELT CURER-PRODUCT ASSEMBLER [address] [facility] [address] [place] [address] PCP - MSSP ACO Attributed Provider 02/29/24 Jaziel Gomez MD [address] [place] [address] Consulting Physician Cardiology 05/04/23 documented as of this encounter
--- OUTSIDE RECORDS SUMMARY | 2024-09-14 12:53 | XMS_ITS | Patient Health Record ---
Author Organization [facility] Address [address] [place] [address] Care Team Providers Care Cardiology Clinical Consultant Name Role Phone Mario Funez Unavailable [phone] Reason For Referral No Information Social History Tobacco Use: Social History Observation Description Date Details (start date - stop date) Never Smoker NA - NA Smoking History Question Answer Notes Smoking Status NonSmoker Problems Problem Type SNOMED Code ICD Code Onset Dates Problem Status W/U Status Risk Notes Problem 825016052 History of heart disease (Z86.79) Active confirmed Problem 982630102 Other nondisplaced fracture of upper end of right humerus, subsequent encounter for fracture with routine healing (S42.294D) Active confirmed Problem 53070524 Other closed nondisplaced fracture of proximal end of right humerus, initial encounter (S42.294A) Active confirmed Problem 524736059 History of COPD (Z87.09) Active confirmed Plan Of Treatment Pending Test Test Name Order Date SCC- SHOULDER 2 VIEW RIGHT [address]6920 023 SCC- SHOULDER 2 VIEW RIGHT [address]59 023 Insurance Providers Payer Name Payer Address Payer Phone Subscriber Number Group Number Insured Name Patient Relationship to Insured Coverage Start Date Coverage [place] [address] [place] [phone] [id number] ALESSANDRA KIM Self - patient is the insured Medical (General) History Medical History History ICD Code Anxiety Pacemaker or AICD Surgical History Surgery Date(Month/Year) Pacemaker
--- OUTSIDE RECORDS SUMMARY | 2024-09-14 12:53 | XMS_ITS | Encounter Summary ---
Author Organization [facility] Address [address] [place] [address] Phone Care Team Providers Care Veterinary Inspector Name Role Phone Shaikh FOZIA Allen Primary Care Provider [phone] Jaziel Gomez MD Unavailable Unavailabl e Judy Asif APRN-PHARMACY BUYER Unavailable [phone] Encounter Details Date Type Department Care Team (Late st Contact Info) Description 10/25/2022 Scanned Document [facility] [address] [place] [address] Conversion, Onbase Social History Tobacco Use Types [...] Description 10/08/2024 1:00 PM EDT Office Visit [facility] [address] [facility] [address] [place] [address] Judy Asif, DARON-PHARMACY BUYER [address] [place] [address] documented as of this encounter Procedures Procedure Name Priority Date/Time Associated Diagnosis Comments ELECTROCARDIOGRAM RHYTHM STRIP 10/25/2022 documented in this encounter Results * ELECTROCARDIOGRAM RHYTHM STRIP (10/25/2022) Narrative 10/25/2022 Ordered by an unspecified provider. us Onbase Conversion ECG ORDERABLES Final Result documented in this encounter Visit Diagnoses Not on filedocumented in this encounter Care Teams Veterinary Inspector Relationship Specialty Start Date End Date Shaikh Allen MD [address] [place] [address] PCP - General Internal Medicine 05/04/23 Judy Asif, PRESCHOOL SPECIAL EDUCATION TEACHER-PHARMACY BUYER [address] [facility] [address] [place] [address] PCP - MSSP ACO Attributed Provider 02/29/24 Jaziel Gomez MD [address] [place] [address] Consulting Physician Cardiology 05/04/23 documented as of this encounter
--- OUTSIDE RECORDS SUMMARY | 2024-09-14 12:54 | XMS_ITS | Encounter Summary ---
Author Organization [employer] Address [id number] [address] [place] [address] Care Team Providers Care Chief Clerk Name Role Phone Unavailable Primary Care Provider Unavailabl e Encounter Details Date Type Department Care Team (Late st Contact Info) Description 08/08/2023 Orders Only [facility] [address] [place] [address] Ernie, Jenniffer, [facility] Severe claudication (CMS-HCC) Social History Tobacco Use Types Packs/Day Years Used Date Smoking Tobacco: Every Day Cigarettes 0.5 46.3 Started: 06/08/1978 Smokeless Tobacco: Never Alcohol Use [...]
--- OUTSIDE RECORDS SUMMARY | 2024-09-14 12:54 | XMS_ITS | Clinical Summary ---
Author Organization [facility] Address [address] [place] [address] Care Team Providers Care Filler Feeder Name Role Phone Unavailable Primary Care Provider Unavailabl e Allergies Active Allergy Reactions Criticality Noted Date Comments Codeine 11/05/2021 Medications albuterol 90 mcg/actuation inhaler Inhale 2 puffs [...] Assessment & Plan (12/09/2021 3:20 PM EDT): [id number]= 4 age, HTN, CHF, vascular disease Continue [...] at Not on file Legal Sex Male 12:45 AM EDT Gender Identity Not on file [...] Medicare Annual Wellness (AWV) 1955 Sigmoidoscopy 1955 Depression Screening 1967 Pneumococcal Vaccine: 50+ Ye ars (1 of 2 - PCV) 10/05/1974 Adult Tetanus 10/05/1977 Zoster Vaccines (1 of 2) 10/05/2005 Fall Risk Screening 10/05/2020 COVID-19 Vaccine (1 - 2023-2 5 season) 2023 Influenza Vaccine (#1) 2024 HIB Vaccines Aged Out No longer [...] on patient's age to complete this topic Insurance MEDICARE
--- OUTSIDE RECORDS SUMMARY | 2024-09-14 12:54 | XMS_ITS | Clinical Summary ---
Author Organization [employer] Address [id number] [address] [place] [address] Care Team Providers Care Archivist Nonprofit Foundation Name Role Phone Unavailable Primary Care Provider [...] Office Visit [facility] [address] [place] [phone] Ran Chavez MD Severe claudication (Primary Dx) 07/26/2024 Travel from Last 3 Months Social History Tobacco Use Types Packs/Day Years Used Date Smoking Tobacco: Former Cigarettes 0.5 46.3 S tarted: 06/08/1978 Smokeless Tobacco: Never Tobacco [...]
--- OUTSIDE RECORDS SUMMARY | 2024-09-14 12:54 | XMS_ITS | Patient Health Record ---
Author Organization [facility] in [place] Address [address] [place] [address] Care Team Providers Care Arrt Technologist Name Role Phone Khang Pham MD Primary Care Provider UnavailMeliton Braswell Unavailable [phone] Allergies Allergen (clinical drug ingredient) Drug/Non Drug Allergy documented on EMR Reaction Allergy Type Onset Date Status codeine Codeine nausea and vomiting Drug Allergy Active Results Component Value Reference Range Notes CT Chest Low Dose for Screen ing* Reviewed date:08/06/2024 01:30:02 PM Interpretation: Performing Lab: Notes/Report: CT lung screening low-dose Reviewed date:08/06/2024 03:49:27 PM Interpretation: Performing Lab: Notes/Report: Source Facility: [place] [address] CT Scan Report Signed Patient: JAIME GEORGES MR#: [id number] : 1955 Acct:[id number] Age/Sex: 68 / M ADM Date: 08/06/24 Loc: CT Attending Dr: Meliton Hughes D.O. Ordering Physician: Meliton Hughes D.O. Date of Service: 08/06/24 Procedure(s): CT lung screening low-dose Accession Number(s): [id number] cc: JOSE MANUEL NAIDU [place] [address] Patient Name: JAIME GEORGES MRN: [facility]:[id number] date: 1955 Sex: M Assigned Patient Location: CT Current Patient Location: CT Accession/Order Number: [id number] Exam Date: 08/06/2024 12:07 Report Date: 08/06/2024 [...] Anton M.D. 08/06/2024 12:18 PM Dictation Location: [place] [address] Electronically authenticated by: [id number] Y Date: 08/06/2024 12:18 Dictated By: Gretchen Anton M.D. Signed By: 08/06/24 1221 DD/ 1218 TD/TT: Proj Mgr: [address] [address] [address] Scan Report Signed Patient: JAIME GEORGES MR#: [id number] : 1955 Acct:[id number] Age/Sex: 68 / M ADM Date: 08/06/24 Loc: CT Attending Dr: Meliton Hughes D.O. Ordering Physician: Meliton Hughes D.O. Date of Service: 08/06/24 Procedure(s): CT ivette g screening low-dose Accession Number(s): [id number] cc: JOSE MANUEL NAIDU [place] [id number] Patient Name: JAIME GEORGES MRN: [id number] date: 1955 Sex: M Assigned Patient Location: CT Current Patient Location: CT Accession/Order Numb er: [id number] Exam Date: 08/06/2024 12:07 Report Date: 08/06/2024 12:18 At the request of: MELITON HUGHES DO Procedure: CT lung s creening low-dose LOW-DOSE SCREENING C HEST CT WITHOUT CONTRAST COMPARISON: 07/22/2023 CLINICAL DATA: Forme r smoker for approximately 49 years. Spiral axial unenhan blanca low-dose images were obtained through the chest. Images were reviewed using both narrow and wide window settings. This CT exam was performed using one or more following dose reduction techniques: Automated exposure control, ad justment of the mA and/or kV according to patient size, or use of iterative rec onstruction technique. There is a left-side d pacemaker. The heart is normal in size. No pericardial effusion is seen. Co ronary artery disease is visualized. There is no aortic aneurysm. Mild plaqu e at the aortic arch and proximal great vessels. There are calcified bilate ral hilar lymph nodes. No pathologic adenopathy is present. A developin g 8 mm nodular density is seen within the main stem bronchus on the left . There is subtle dextroscoliotic curvature. Mild degenerative changes are visualized at the spine. There is obstructive lung disease with airspace lucencies. There is minor atelectasis or scarr ing. No developing consolidation, pleural effusion or pneumothorax is seen . There is suspected mild right lower lobe bronchiectasis. Ther e are some calcified granulomas. A 10 - 11 mm noncalcified nodule is again seen at the right lower lobe. No new nodularity is present. Limited cuts through the upper abdomen show calcified hepatic and splenic granulomas. Adrenal limb thickening is again visualized, slightly nodular on the left. C T/CT lung screening low-dose IMPRESSION: OBSTRUCTIVE AND GRAN ULOMATOUS DISEASE. STABLE NONCALCIFIED RIGHT LOWER LOBE NODULE. DEVELOPING LEFT MAIN STEM ENDOBRONCHIAL NODULE. PULMONARY FOLLOW-UP IS SUGGESTED WITH ADDIT IONAL IMAGING EVALUATION IS WARRANTED. Lung RADS category 2 - benign nodularity and developing left endobronchial nodule Twelve-month low-dos e CT follow-up suggested. Impression dictated by: Gretchen Anton M.D. 08/06/2024 12:18 PM Dictation Location: [place] [address] Electronically authe nticated by: [id number] Y Date: 08/06/2024 12:18 Dictated By: Gretchen Johnson M.D. Signed By: 08/06/24 1221 DD/ 1218 TD/TT: Proj Mgr: CT chest wo con Reviewed date:09/10/2024 07:17:23 AM Interpretation: Performing Lab: Notes/Report: Source Facility: [place] [address] [place] [address] CT Scan Report Signed Patient: JAIME GEORGES MR#: [id number] : 1955 Acct:[id number] Age/Sex: 68 / M ADM Date: 09/07/24 Loc: CT Attending Dr: Meliton Hughes D.O. Ordering Physician: Meliton Hughes D.O. Date of Service: 09/07/24 Procedure(s): CT chest wo con Accession Number(s): [id number] cc: Physician,Non-Staff Shakir [place] [address] Patient Name: JAIME GEORGES MRN: [id number]:[id number] date: 1955 Sex: M Assigned Patient Location: CT Current Patient Location: CT Accession/Order Number: [id number] Exam Date: 09/07/2024 14:10 Report Date: 09/07/2024 14:16 At the request of: MELITON HUGHES DO Procedure: CT chest wo con CT chest wo con 09/07/2024 1:18 PM SIGN AND SYMPTOMS: Follow-up endobronchial nodule TECHNIQUE: Multidetector CT axial slices of the chest were obtained without IV contrast. Multiplanar reformats were performed and viewed on a separate workstation and reviewed to further define anatomy and possible pathology. CT was performed with one or more of the following dose reduction techniques: Automated exposure control, adjustment of the mA and/or kV according to patient size, or use of iterative reconstruction technique. COMPARISON: 08/06/2024. FINDINGS: Lower neck: Thyroid gland within normal limits, no supraclavicle adenopathy. Vessels: Atherosclerotic changes are noted in the thoracic aorta, origins of great vessels, and within the coronary arteries. Mediastinum and Justine: There are a few calcified left-sided mediastinal lymph nodes with calcified bilateral hilar lymph nodes. Heart: Normal size. No pericardial effusion. Airways: The previously suspected endobronchial nodule is no longer present and may have represented the endotracheal foreign body or secretions. A small amount of dependent secretions are noted in the right mainstem bronchus with secretions noted along the lateral wall of the distal trachea. Lungs: There is a similar 1 cm noncalcified nodule in the right lower lobe. Unchanged calcified granulomas are noted in the left lower lobe. Emphysematous changes are redemonstrated bilaterally. Pleura: Within normal limits. Chest Wall: Within normal limits. Upper Abdomen: Calcified granulomas are noted in the liver and spleen. Bones: Degenerative changes are present in the thoracic spine. CT/CT chest wo con IMPRESSION: The previously suspected endobronchial nodule is no longer present and may have represented the endotracheal foreign body or secretions. A small amount of dependent secretions are noted in the right mainstem bronchus with secretions noted along the lateral wall of the distal trachea. There is a similar 1 cm noncalcified nodule in the right lower lobe. Unchanged calcified granulomas are noted in the left lower lobe. Emphysematous changes are redemonstrated bilaterally. Impression dictated by: Gopal Mckinney M.D. 09/07/2024 2:16 PM Dictation Location: [place] [address] Electronically authenticated by: [id number] Y Date: 09/07/2024 14:16 Dictated By: Gopal Mckinney M.D. Signed By: 09/07/24 1419 DD/ 15 TD/TT: Proj Mgr: [place] [address] CT Scan Report Signed Patient: JAIME GEORGES MR#: [id number] : 1955 Acct:[id number] Age/Sex: 68 / M ADM Date: 09/07/24 Loc: CT Attending Dr: Meliton Hughes D.O. Ordering Physician: Meliton Hughes D.O. Date of Service: 09/07/24 Procedure(s): CT chest wo con Accession Number(s): [id number] cc: Physician,Non-Staff Shakir [place] [address] Patient Name: JAIME GEORGES MRN: [facility]:[id number] date: 1955 Sex: M Assigned Patient Location: CT Current Patient Location: CT Accession/Order Numb er: [id number] Exam Date: 09/07/2024 14:10 Report Date: 09/07/2024 14:16 At the request of: MELITON HUGHES DO Procedure: CT chest wo con CT chest wo con 09/07 1:18 PM SIGN AND SYMPTOMS: F ollow-up endobronchial nodule TECHNIQUE: Multidete ctor CT axial slices of the chest were obtained without IV contrast. Multiplana r reformats were performed and viewed on a separate workstation and revi ewed to further define anatomy and possible pathology. CT was performed with o ne or more of the following dose reduction techniques: Automated exposure c ontrol, adjustment of the mA and/or kV according to patient size, or use of iterative reconstruction technique. COMPARISON: 08/06/2024. FINDINGS: Lower neck: Thyroid gland within normal limits, no supraclavicle adenopathy. Vessels: Atheroscler otic changes are noted in the thoracic aorta, origins of great vessels, and w ithin the coronary arteries. Mediastinum and Justine : There are a few calcified left-sided mediastinal lymph nodes with calcified bilateral hilar lymph nodes. Heart: Normal size. No pericardial effusion. Airways: The previou sly suspected endobronchial nodule is no longer present and may have represe nted the endotracheal foreign body or secretions. A small amount of dependent secretions are noted in the right mainstem bronchus with secretions noted jeri ng the lateral wall of the distal trachea. Lungs: There is a si milar 1 cm noncalcified nodule in the right lower lobe. Unchanged calcified granulomas are noted in the left lower lobe. Emphysematous change s are redemonstrated bilaterally. Pleura: Within normal limits. Chest Wall: Within n ormal limits. Upper Abdomen: Calci fied granulomas are noted in the liver and spleen. Bones: Degenerative changes are present in the thoracic spine. C T/CT chest wo con IMPRESSION: The previously suspe cted endobronchial nodule is no longer present and may have represented the endotracheal foreign body or secretions. A small amount of de pendent secretions are noted in the right mainstem bronchus with secret ions noted along the lateral wall of the distal trachea. There is a similar 1 cm noncalcified nodule in the right lower lobe. Unchanged calcified granulomas are noted in the left lower lobe. Emphysematous change s are redemonstrated bilaterally. Impression dictated by: Gopal Mckinney M.D. 09/07/2024 2:16 PM Dictation Location: [place] [address] Electronically authe nticated by: [id number] Y Date: 09/07/2024 14:16 Dictated By: Gopal Mckinney M.D. Signed By: 09/07/24 1419 DD/ 1416 TD/TT: Proj Mgr: CT Chest w/o contrast Reviewed date:09/10/2024 07:16:32 AM Interpretation: Performing Lab: Notes/Report: Reason For Referral No Information Medications Medication SIG (Take, Route, Frequency, Duration) [...] Problem Status W/U Status Risk Notes Problem Paroxysmal atrial fibrillation (290078692) Paroxysmal atrial fibrillation (I48.0) Active confirmed Problem Centrilobular emphysema (69320907) Centrilobular emphysema (J43.2) Active confirmed Problem 985658482 Chronic respiratory failure with hypoxia (J96.11) Active confirmed Problem Solitary pulmonary nodule (047067656) Solitary pulmonary nodule (R91.1) Active confirmed Problem Long-term current use of anticoagulant (213112787) 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 (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 of anticoagulants (Z79.01) Active confirmed Problem Iron deficiency anemia (61356030) Iron deficiency anemia (D50.9) Active confirmed Problem Ex-tobacco user (finding) (320531291) History of tobacco abuse (Z87.891) Active confirmed Problem Lesion of bronchus (360471841) Lesion of bronchus (J98.09) Active confirmed Problem Secondary pulmonary hypertension (31165326) Other secondary pulmonary hypertension (I27.29) Active confirmed Problem Calcified lymph nodes (505867845) Calcified lymph nodes (I89.8) Active confirmed Vital Signs Heart Rate 106 /min 09/11/2024 2L O2- Activity /Resting Temperature 96.9 degrees Fahrenheit 09/11/2024 2L O 2- Activity/Resting Respiratory Rate 20 /min 09/11/2024 2L O2- Acti vity/Resting Oximetry 91 % 09/11/2024 2L O2- Activity /Resting Blood pressure diastolic 79 mm Hg 09/11/2024 2L O2- Activity/Resting Height 69 in 09/11/2024 2L O2- Activity /Resting Blood pressure systolic 122 mm Hg 09/11/2024 2L O 2- Activity/Resting Weight 176.8 lbs 09/11/2024 2L O2- Activity /Resting BMI 26.11 kg/m2 09/11/2024 2L O2- Activity /Resting Encounters Encounter Location Date Provider Diagnosis [facility] [address] [place] [address] 01/18/2024 [facility] [address] [place] [address] 07/26/2024 [facility] [address] [place] [address] 08/06/2024 [facility] [address] [place] [address] 08/07/2024 [facility] Lesion of bronchus J98.09 ; Paroxysmal atrial fibrillation I48.0 and group home (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 of anticoagulants Z79.[address] [address] 07/31/2024 [facility] Centrilobular emphys hugo J43.2 ; Chronic respiratory failure with hypoxia J96.11 ; Solitary pulmonary nodule R91.1 ; Calcified lymph nodes I89.8 ; Iron deficiency anemia D50.9 ; History of tobacco abuse Z87.891 and Encounter for screening for malignant neoplasm of respiratory organs Z12.2 [facility] [address] [place] [address] 09/11/2024 [facility] Lesion of bronchus J98.09 ; Centrilobular emphysema J43.2 ; Chronic respiratory failure with hypoxia J96.11 ; Solitary pulmonary nodule R91.1 ; Calcified lymph nodes I89.8 and History of tobacco abuse Z87.891 Assessments Encounter Date Diagnosis (ICD Code) Assessment Notes Treatment Notes Treatment Clinical Notes Section Notes 07/31/2024 Centrilobular emphysema (ICD-10 - J43.2) Prior treatment: Spiriva (ineffective, dry mouth) Previously, patient stated that O2 was sufficient for him to relieve dyspnea. Over the past year, he became more symptomatic during activity. He previously refused PFT and alternative treatment. He is now asking about starting an inhaler. I mentioned that a PFT is indicated to help determine the diagnosis (pulmonary vs. cardiac) and severity of disease. Additionally, PFT can be done to help qualify for certain programs (pulmonary rehabilitation, EBV, etc.). I also mentioned that I would not restart Spiriva given prior lack of efficacy and dry mouth - I would recommend an alternative agent. I showed him the Ellipta device and mentioned that Anoro may be a good option for him. The patient then stated he is not SOB all the time, but then acknowledged that inhalers can help prevent or lessen the severity of SOB. Despite this, he does not want to get a PFT and then says he does not want to start an inhaler. I am still unclear as to his aversion to getting the PFT done. He has a history of getting other inhalers/treatment and then not even trying them. AAT testing is also indicated, but without a PFT, he would never qualify for any augmentation therapy, so I also held off on AAT screening. For now, patient is just going to remain on O2 until he decies otherwise to get the PFT done. 09/11/2024 Lesion of bronchus (ICD-10 - J98.09) [...] He does not ask for anything today. 08/07/2024 Lesion of bronchus (ICD-10 - J98.09) [...] RRR. Will need preoperative cardiac evaluation. 08/07/2024 group home (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 of anticoagulants (ICD-10 - Z79.01) On Eliquis, would need to be stopped prior to bronchoscopy. 09/11/2024 Chronic respiratory failure with hypoxia (ICD-10 - J96.11) Bmuq-zs-gxrr encounter performed with the patient to document continued need for supplemental oxygen (O2).-Flow & directions: 2L/min ATC -Continue O2 07/31/2024 Chronic respiratory failure with hypoxia (ICD-10 - J96.11) Xdrj-jh-cniy encounter performed with the patient to document continued need for supplemental oxygen (O2).-Flow & directions: 2L/min-Patient voices adherence to recommended usage: Yes-Symptom control on O2: Improvement in dyspnea-Counseled patient not begin, restart, or continue smoking, around the O2 due to risk of fire which could result in damage to the O2 tanks & lines, smoke inhalation and flame damage to the airway, significant bain, potential , property damage, and potential harm & to bystanders. Additionally, counseled it is not lamar to begin, restart, or continue smoking given the underlying pulmonary disease that led to the point of requiring O2.-Recommendation s: Continue 2L/min with activity 07/31/2024 Solitary pulmonary nodule (ICD-10 - R91.1) 1.1cm RLL nodule, unchanged on imaging from 07/22/2023 compared to 07/10/2022, 11/03/2021, and 07/19/2021. 09/11/2024 Solitary pulmonary nodule (ICD-10 - R91.1) 1.1cm RLL nodule, unchanged on imaging from 09/07/2024, 08/06/2024, 07/22/2023, 07/10/2022, 11/03/2021, and 07/19/2021. 09/11/2024 Calcified lymph nodes (ICD-10 - I89.8) Incidental finding. 07/31/2024 Calcified lymph nodes (ICD-10 - I89.8) Incidental finding. 07/31/2024 Iron deficiency anemia (ICD-10 - D50.9) Anemia can contribute to dyspnea & fatigue. 09/11/2024 History of tobacco abuse (ICD-10 - Z87.891) 1/2ppd x 49 years, quit 07/10/2022. He will be due for LDCT mid-August 2025. No order generated today d/t closure of [facility] Pulmonology practice this week. He can either get his PCP to order it, re-establish with me next summer to order it, or establish with a new church administrator. 07/31/2024 History of tobacco abuse (ICD-10 - Z87.891) 1/2ppd x 49 years, quit 07/10/2022. LDCT is overdue. Order given to patient. 07/31/2024 Encounter for screening for malignant neoplasm of respiratory organs (ICD-10 - Z12.2) Low-dose CT (LDCT) was recommended for lung cancer screening. The patient meets criteria including age 50-77, a smoking history of at least 20 pack-years, is currently smoking or has ceased smoking within the past 15 years, and has no signs or symptoms of lung cancer. Shared decision making performed with the patient. After LDCT has been completed, will review report and/or imaging and provide appropriate recommendations for the patient, including additional follow up if needed. Patient was counseled on smoking cessation/continue d tobacco abstinence. LDCT is overdue. Personally handed him the order for the LDCT. 09/11/2024 Other Plan Of Treatment Next Appt Details Provider Name:Meliton Hughes, 07/30/2025 10:00:00 AM, [address] [place], [address], Insurance Providers Payer Name Payer Address Payer Phone Subscriber Number Group Number Insured Name Patient Relationship to Insured Coverage Start Date Coverage End Date [place] [address] [place] [address] [id number] Layla rhoda Jaime Self - patient is the insured 1 Medical (General) History Medical History History ICD Code Solitary pulmonary nodule R91.1 Centrilobular emphysema J43.2 Other secondary pulmonary hypertension I 27.29 Peripheral artery disease I73.9 Paroxysmal atrial fibrillation I48.0 Junctional bradycardia R00.1 Essential Hypertension I10 Iron deficiency anemia D50.9 Chronic respiratory failure with hypoxia J96.11 Calcified lymph nodes I89.8 Lesion of bronchus J98.09 History of tobacco abuse Z87.891 group home (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 of anticoagulant s Z79.01 Surgical History Surgery Date(Month/Year) melanoma excision inguinal hernia repair cataract removal Left iliac artery stent Pacemaker Insertion 07/16/2022 Hospitalization History Reason Date(Month/Year) Symptomatic junctional bradycardia with respiratory failure-[facility] 07/10/2022
--- OUTSIDE RECORDS SUMMARY | 2024-09-14 12:54 | XMS_ITS | Encounter Summary ---
Author Organization [employer] Address [id number] [address] [place] [address] Care Team Providers Care Binder Fixer Name Role Phone Unavailable Primary Care Provider Unavailabl e Encounter Details Date Type Department Care Team (Late st Contact Info) Description 07/16/2021 Telephone [facility] [address] [place] [phone] Екатерина Robles MD [address] [address] Social History Tobacco Use Types Packs/Day Years [...] week now; legs feeling heavy; lives in [place]; swelling went down some last night but [...]
--- OUTSIDE RECORDS SUMMARY | 2024-09-14 12:54 | XMS_ITS | Encounter Summary ---
Author Organization [employer] Address [id number] [address] [place] [address] Care Team Providers Care Senior Sales Executive Name Role Phone Unavailable Primary Care Provider Unavailabl e Encounter Details Date Type Department Care Team (Late st Contact Info) Description 06/01/2021 Telephone [facility] [address] [place] [phone] Екатерина Robles MD [address], [address] [address] Social History Tobacco Use Types Packs/Day Years [...]
--- OUTSIDE RECORDS SUMMARY | 2024-09-14 12:54 | XMS_ITS | Encounter Summary ---
Author Organization [employer] Address [id number] [address] [place] [address] Care Team Providers Care Combination Machine Tool Setter Name Role Phone Unavailable Primary Care Provider Unavailabl e Encounter Details Date Type Department Care Team (Late st Contact Info) Description 02/05/2022 Telephone [facility] [address] [facility] [place] [address] Daiana Le, TRINY Social History [...]
--- OUTSIDE RECORDS SUMMARY | 2024-09-14 12:54 | XMS_ITS | Clinical Summary ---
Author Organization [facility] Address [address] [place] [address] Phone Care Team Providers Care Painter Maintenance Name Role Phone Shaikh FOZIA Allen Primary Care Provider [phone] Jaziel Gomez MD Unavailable Judy Emery APRN-[facility] Unavailable [phone] Allergies Active Allergy Reactions Criticality Noted Date [...] not wearing oxygen on ride into office) prison current use of anticoagulant therapy 0 03/25/2023 Assessment & Plan (04/25/2024 10:56 AM EST): [facility] 2 chronically anticoagulated full dose Eliquis (age 68, wt 80kg) Denies bleeding diathesis Encounters Date Type Department Care Team Description 07/04/2024 Telephone [facility] [address] [address] Kristy Lewis RN from Last 3 Months Family History Medical [...] EDT Office Visit [facility] [address] [facility] [address] [place] [address] Judy Asif, STRATEGIC ACCOUNT DIRECTOR-TRAINING COORDINATOR [address] [facility] [address] [place] [address] Health Maintenance Due Date Last Done Comments [...] 5 season) 2023 Influenza Vaccine (#1) 2024 Abdominal Aortic Aneurysm (A AA) Screening [...] MEDICARE PART A AND B Care Teams Painter Maintenance Relationship Specialty Start Date End Date Shaikh Allen MD [address] [place] [address] PCP - General Internal Medicine 05/04/23 Judy Asif, STRATEGIC ACCOUNT DIRECTOR-TRAINING COORDINATOR [address] [facility] [address] [place] [address] PCP - MSSP ACO Attributed Provider 02/29/24 Jaziel Gomez MD [address] [place] [address] Consulting Physician Cardiology 05/04/23
--- OUTSIDE RECORDS SUMMARY | 2024-09-14 12:54 | XMS_ITS | Encounter Summary ---
Author Organization [facility] Address [address] [place] [address] Phone Care Team Providers Care Production Laborer Name Role Phone Shaikh FOZIA Allen Primary Care Provider [phone] Jaziel Gomez MD Unavailable Judy Emery APRN-CLEO Unavailable [phone] Encounter Details Date Type Department Care Team (Late st Contact Info) Description 08/03/2023 Scanned Document [facility] [address] [place] [id number] Scanning, Generic Provider Social History Tobacco Use [...] Description 10/08/2024 1:00 PM EDT Office Visit [facility] [address] [facility] [address] [place] [phone] Judy Asif, DARON-ORDER PROCESSOR [address] [facility] [address] [place] [address] documented as of this encounter Visit Diagnoses Not on filedocumented in this encounter Additional Health Concerns Assessment Noted Time A fall risk assessment has been complete d for the patient 05/04/2023 3:09 PM EST documented as of this encounter Care Teams Production Laborer Relationship Specialty Start Date End Date Shaikh Allen MD [address] [place] [address] PCP - General Internal Medicine 05/04/23 Judy Asif, FILTER CHANGING TECHNICIAN-ORDER PROCESSOR [address] [facility] [address] [place] [address] PCP - MSSP ACO Attributed Provider 02/29/24 Jaziel Gomez MD [address] [place] [address] Consulting Physician Cardiology 05/04/23 documented as of this encounter
--- NOTE | 2024-09-14 13:00 | CA_ITS ---
[facility] Test Date: 2024-09-14 Pat Name: [facility] Department: Room: - Gender: Male Dinkey Brakeman: ALFREDO AGUILERA : 1955 Requested By: [id number] Order Number: [id number] Reading MD: ELAINA ARANA M.D. Interpretive Statements Summary of the findings: Right leg: LASHA= 0.64; TBI= 0.54. Doppler waveforms demonstrate monophasic flow at the posterior tibial and dorsalis pedis arteries. Left leg: LASHA= 0.54; TBI= 0.33. Doppler waveforms demonstrate monophasic flow at the posterior tibial and dorsalis pedis arteries. Segmental pressures: Segmental pressures indicate significant bilateral inflow disease and significant left femoropopliteal disease. Pulse volume recordings: PVRs at the high thigh, below knee, and ankle levels show dampened waveforms. Conclusion: Right and left ankle-brachial indices are suggestive of reduced overall arterial flow at rest. Toe-brachial indices are suggestive of PAD. Segmental pressures show significant bilateral inflow disease and significant left femoropopliteal disease. Pulse volume recordings indicate reduced overall resting arterial flow. The study shows evidence of PAD (bilateral inflow and left femoropopliteal) with reduced overall arterial flow at rest. Electronically Signed On 09-16-2024 16:19:10 EDT by ELAINA ARANA M.D.
== END 2024-09-14 12:49 | disposition home or self-care (01) ==
LOC: CARD 12:48
PROVIDERS: Visit Provider Student in an Organized Health Care Education/Training Program
DX: I73.9 Peripheral vascular disease, unspecified (principal)
CPT/HCPCS: 93923

== ENCOUNTER 2024-10-11 11:54 | Outpatient (OUT) | payer MEDICARE, SELFPAY ==
--- OUTSIDE RECORDS SUMMARY | 2024-10-11 12:04 | XMS_ITS | CCD ---
Author Organization [facility]ini[facility] Care Team Providers Care Wheel Press Operator Name Role Phone REQUEST, DR NONE LISTED Primary Care Unavaila ble ALGHOTHANI, MOHAMAD Admitting Unavailable ALGHOTHANI, MOHAMAD Attending Unavailable ELEAZAR, DR KATE Zacarias Consulting Unavailable SAMSAMELITON Attending Unavailable REQUEST, NONE LISTED Primary Care [...] Attending Unavailable MD Iris Holliday Emergency Provider [phone] NO FAMILY, PHYSICIAN Primary Care Provider Unava ilable DO Iris Lassiter Admit Provider [phone] DO Iris Lassiter Attending Provider [phone] Asaad, Imad Unavailable None, No PCP Unavailable Unavailable Unavailable Unavailable MD Jaziel Gomez Attending Provider MD Jaguar Allen Primary Care Provider [phone] Cyndi Asif Attending Unavailable Cyndi Asif Referring Unavailable Cyndi Asif Attending Unavailable Cyndi Asif Referring Unavailable McGuinn II, Dr. Jaziel Ramirez Attending Unavailable McGuinn II, Dr. Jaziel Ramirez Referring Unavailable McGuinn II, Dr. Jaziel Ramirez Attending Unavailable McGuinn II, Dr. Jaziel Ramirez Attending Unavailable MD Tiffany [facility] Primary Care Provider [phone] MD Jaziel Gomez Attending [facility] Jaziel Gomez MD Unavailable [phone] MD Tiffany [facility] Primary Care Provider MD Jaziel Gomez Attending Provider MD Jaziel Gomez Attending Provider NO FAMILY, PHYSICIAN Primary Care Provider Unava ilable Unavailable Primary Care Provider UnavailJaziel Sheets MD Unavailable Unavailwilliam Allen MD, [facility] Primary Care Provider [phone] Unavailable Primary Care Provider UnavailMILEY Yates Attending Unavailable Bradford Vines MD Attending Provider Cyndi Asif APRN Attending Provider Amada PEOPLE MANAGER-CJose Manuel Primary Care Provid er RAN CHAVEZ Attending Unavailable Cyndi Asif Admitting Unavailable Cnydi Asif Attending Unavailable Jose Manuel Ybarra Primary Care Unavaila Bradford Lord Admitting Unavailable Bradford Vines Attending Unavailable Jose Manuel Ybarra Primary Care Unavaila ble Jaziel Gomez Admitting Unavail able Jaziel Gomez Attending Unavail able Kentrell Garcia Admitting Unavailable Kentrell Garcia Attending Unavailable Jose Manuel Ybarra Primary Care Unavaila ble Jaziel Gomez Attending Unavail able NO FAMILY, PHYSICIAN Primary Care Unavailable Jaziel Gomez Admitting Unavail able Yefri NERI-Diaz GALLOna K Unavailable CYNDI ASIF Attending Unavailable CYNDI ASIF Referring Unavailable SHAIKH ALLEN Primary Care Unavailable CYNDI ASIF Attending Unavailable JAZIEL GOMEZ Referring Unavailable SHAIKH ALLEN Primary Care Unavailable Allergies Allergy Classification Reported Allergen(s) Allergy Type Date of Onset Reaction(s) Facility (4 sources) Codeine; Translations: [CODEINE] Drug Allergy 2 [facility] Repository (17 sources) Codeine; Translations: [Codeine Derivatives] Drug Allergy 2 Other, GI intolerance [facility] Other (1 source) Codeine Drug Allergy 3 [facility] Repository Medications Current Medications Medication Drug Class(es) Dates Sig (Normalized) Sig (Original) [id number] actuat albuterol 0.09 mg/actuat metered dose inhaler (9 sources) beta2-Adrenergic Agonist take 2 puff(s) by inhalation every four hours for wheezing albuterol HFA 90 mcg/act inhaler Inhale 2 puffs every 4 (four) hours if needed for wheezing Active Albuterol Sulfat e (2.5 MG/3ML) 0.083% Inhalation Nebulization Solution USE 1 UNIT DOSE EVERY 4-6 HOURS NEEDED FOR WHEEZING . Quantity: 0 Refills: 0 Ordered: 23-Jul-2022 DO Active albuterol 0.833 mg/ml / ipratropium bromide 0.167 mg/ml inhalation solution (8 sources) Anticholinergic, beta2-Adrenergic Agonist Start: 07-19-2022 take 1 mL by inhalation every six hours as needed Ipratropium-Albuterol 0.5 mg-3 mg(2.5 mg base)/3 mL Solution For Nebulization Active 3 ML INHALATION Q6H as needed for Shortness of Breath or wheezin 180 July 19, 2022 12:00am take 3 mL by inhalat ion every six hours as needed Ipratropium-Albuterol 0.5-2.5 (3) MG/3ML 3 mL as needed Inhalation every 6 hrs Active apixaban 5 mg oral tablet (20 sources) Factor Xa Inhibitor Start: 05-11-2024 take 1 tablet by mouth twice daily Eliquis 5 mg tablet Indications: Paroxysmal atrial fibrillation (Multi) TAKE 1 TABLET BY MOUTH TWICE DAILY 180 tablet 3 05/11/2024 Active Start: 10-21-2021 take 1 tablet by rebekah th once daily Apixaban (Eliquis) 5 mg tablet Active 5 MG PO Daily July 10, 2022 12:00am On Hold: Hold until EGD and colonoscopy are performed Start: 10-21-2021 End: 05-03-2024 take 1 tablet by mouth twice daily apixaban (Eliquis) 5 mg tablet Indications: Paroxysmal atrial fibrillation (Multi) Take 1 tablet (5 mg) by mouth 2 times a day. 180 tablet 3 05/04/2023 05/03/2024 Active aspirin 81 mg chewable tablet (7 sources) Platelet Aggregation Inhibitor, Nonsteroidal Anti-inflammatory Drug Start: 07-28-2023 aspirin 81 mg chewable tablet Indications: Severe claudication Chew 1 tablet (81 mg total) and swallow in the morning. 90 tablet 3 07/28/2023 Active take 1 tablet by mouth in the mo rning aspirin 325 mg tablet Take 1 tablet (325 mg total) by mouth in the morning. Active atorvastatin 40 mg oral tablet (6 sources) HMG-CoA Reductase Inhibitor Start: 07-28-2023 End: 05-22-2024 take 1 tablet by mouth in the morning atorvastatin (LIPITOR) 40 mg tablet Indications: Severe claudication TAKE 1 TABLET BY MOUTH IN THE MORNING 90 tablet 3 05/22/2024 Active Calcium Carb-Cholecalcifer ol (CALCIUM CARBONATE-VITAMIN D3 PO) (6 sources) take 1 tablet by mouth in the morning Calcium Carb-Cholecalcifer ol (CALCIUM CARBONATE-VITAMIN D3 PO) Take 1 tablet by mouth in the morning. Active clindamycin 300 mg oral capsule (7 sources) Lincosamide Antibacterial Start: 07-16-2022 take 2 capsules by mouth every eight hours Clindamycin Hcl 300 mg Capsule Active 600 MG PO Every 8 hours 12 July 16, 2022 12:00am Start: 07-16-2022 take 600 mg by mouth every eight hours Clindamycin Hcl Active 600 MG PO Every 8 hours 01 29July 16, 2022 12:00am dofetilide 0.25 mg oral capsule (20 sources) Antiarrhythmic Start: 05-04-2023 End: 05-03-2024 take 2 capsules by mouth every twelve hours dofetilide (Tikosyn) 250 mcg capsule Indications: Paroxysmal atrial fibrillation (CMS/HCC) Take 2 capsules (500 mcg) by mouth every 12 hours. 360 capsule 3 05/04/2023 05/03/2024 Active Start: 07-19-2022 End: 05-22-2025 take 1 capsule by mouth twice daily dofetilide (Tikosyn) 250 mcg capsule Indications: Paroxysmal atrial fibrillation (Multi) Take 1 capsule (250 mcg) by mouth 2 times a day. 180 capsule 3 05/22/2024 05/22/2025 Active take 1 capsule by mo [facility] every twelve hours Dofetilide 250 MCG 1 capsule Orally Twice a day Active ferrous sulfate 325 mg delayed release oral tablet (6 sources) take 1 tablet by mouth at mealtime ferrous sulfate 325 (65 Fe) MG EC tablet Take 1 tablet by mouth in the morning. Take with meals. Do not crush, chew, or split.. Active furosemide 20 mg oral tablet (20 sources) Loop Diuretic Start: 3 End: 5 take 1 tablet by mouth once daily furosemide (Lasix) 20 mg tablet Indications: Paroxysmal atrial fibrillation (Multi) , SSS (sick sinus syndrome) (Multi) TAKE 1 TABLET BY MOUTH DAILY 90 tablet 3 11/03/2023 Active 24 hr metoprolol succinate 25 mg extended release oral tablet (20 sources) beta-Adrenergic Erica Start: 3 End: 5 take 1 tablet by mouth once daily [...] tablet Discontinued 25 MG PO Daily July 10, 2022 12:00am July 19, 2022 3:04pm Multiple Vitamins-Iron (MULTIVITAMIN PLUS IRON ADULT PO) (6 sources) take 1 tablet by rebekah th in the morning Multiple Vitamins-Iron (MULTIVITAMIN PLUS IRON ADULT PO) Take 1 tablet by mouth in the morning. Active oxygen (O2) gas therapy (3 sources) oxygen (O2) gas therapy Inhale 1 Dose continuously. 2 LPM Active oxygen (O2) gas therapy Inhale 1 each continuously. 2 LPM Active oxygen (O2) gas therapy Inhale 1 each continuously. 2 LPM 0 Active sertraline 25 mg oral tablet (17 sources) Serotonin Reuptake Inhibitor Start: 07-19-2022 End: 05-04-2023 take 1 tablet by mouth once daily in the evening Sertraline 25 mg Tablet Active 25 MG PO Every evening 30 30 July 19, 2022 12:00am Completed/Discontinued Medications Medication Drug Class(es) Dates Sig (Normalized) Sig (Original) clopidogrel 75 mg oral tablet (14 sources) [id number] Platelet Inhibitor Start: 07-10-2022 take 1 tablet by mouth once daily Clopidogrel (Plavix) 75 mg Tablet Active 75 MG PO Daily July 10, 2022 12:00am On Hold: Hold until EGD and colonoscopy are performed digoxin 0.125 mg oral tablet (18 sources) Cardiac Glycoside Start: 10-21-2021 End: 07-19-2022 take 1 tablet by mouth once daily Digoxin 125 mcg (0.125 mg) tablet Discontinued 125 MCG PO Daily July 10, 2022 12:00am July 19, 2022 3:04pm 24 hr dilTIAZem hydrochloride 180 mg extended release oral capsule (18 sources) Calcium Channel Erica Start: 07-10-2022 End: 07-19-2022 take 1 capsule by mouth once daily Diltiazem Hcl 180 mg capsule,extended release 24 hr Discontinued 180 MG PO Daily July 10, 2022 12:00am July 19, 2022 3:04pm Start: 10-21-2021 take 1 capsule by mo nch every twenty-four hours in the morning dilTIAZem (TIAZAC) 180 MG 24 hr capsule Take 1 capsule (180 mg total) by mouth in the morning. 10/21/2021 Active take 1 tablet by rebekah th every twenty-four hours in the morning dilTIAZem HCl ER 180 MG tablet sustained-release 24 hour Take 1 tablet by mouth in the morning. Active omeprazole 40 mg delayed release oral capsule (20 sources) Proton Pump Inhibitor Start: 10-21-2021 End: 04-24-2024 take 1 capsule by mouth once daily Omeprazole 40 mg capsule,delayed release(DR/EC) Discontinued 40 MG PO Daily July 10, 2022 12:00am July 19, 2022 1:18pm tiotropium 0.018 mg inhalation powder (13 sources) Anticholinergic Start: 07-19-2022 End: 04-24-2024 Spiriva with HandiHaler [address] 1 capsule (18 mcg) into inhaler and inhale if needed. 07/19/2022 04/24/2024 Discontinued (Discontinued by another clinician) Start: 07-19-2022 take 1 capsule by in halation once daily Tiotropium [place] (Spiriva With Handihaler) 18 mcg capsule, w/inhalation device Active 1 CAP INHALATION Daily 60 July 19, 2022 12:00am puncture 1 cap using device; one dose = 2 inhalations take 1 capsule by in halation once daily Spiriva HandiHaler 18 MCG 1 capsule by inhaling the contents of the capsule using the HandiHaler device Inhalation Once a day Active Problems Active Problems Problem Classification Problem Date Documented Da te Episodic/Chronic Administrative/social admission (7 sources) Advance directive discussed with patient; Translations: [Other specified counseling] 07-15-2022 Episodic Comment on above: Problem List clean-u p per request of Phys. 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 EHR Cmte Cardiac dysrhythmias (9 sources) AV-junctional (lorie) bradycardia; Translations: [Bradycardia, unspecified] 07-10-2022 Episodic Comment on above: Problem List clean-u p per request of Phys. EHR Cmte Chronic obstructive pulmonary disease and bronchiectasis (16 sources) Centrilobular emphysema; Translations: [Chronic obstructive lung disease] Onset: 08-10-2021 07-11-2022 Chronic Comment on above: Problem List clean-u p per request of Phys. EHR Cmte Coagulation and hemorrhagic disorders (9 sources) Thrombocytopenia, unspecified; Translations: [Blood coagulation disorder] Onset: 08-10-2021 07-11-2022 Chronic Comment on above: Problem List clean-u p per request of Phys. EHR Cmte Conduction disorders (14 sources) Unspecified right bundle-branch block; Translations: [Cardiac pacemaker in situ] Onset: 08-10-2021 05-04-2023 Chronic Congestive heart failure; nonhypertensive (9 sources) Acute combined systolic (congestive) and diastolic (congestive) heart failure; Translations: [Chronic diastolic (congestive) heart failure] Onset: 08-10-2021 Chronic Deficiency and other anemia (8 sources) Anemia; Translations: [Anemia, unspecified] 07-12-2022 Episodic Comment on above: Problem List clean-u p per request of Phys. EHR Cmte Deficiency and other anemia (1 source) Anemia, unspecified Episodic Disorders of lipid metabolism (7 sources) Hyperlipidemia, unspecified; Translations: [Mixed hyperlipidemia] Onset: 08-10-2021 04-25-2024 Chronic Fluid and electrolyte disorders (10 sources) Hypo-osmolality and hyponatremia; Translations: [Lactic acidosis] Onset: 08-10-2021 07-10-2022 Episodic Comment on above: Problem List clean-u p per request of Phys. EHR Cmte Mood disorders (7 sources) Depressive disorder; Translations: [Depression] 07-18-2022 Chronic Comment on above: Problem List clean-u p per request of Phys. EHR Cmte Neoplasms of unspecified nature or uncertain behavior (2 sources) Neoplastic disease; Translations: [Neoplasm of unspecified behavior of bone, soft tissue, and skin] 05-24-2024 Episodic Nutritional deficiencies (7 sources) Iron deficiency; Translations: [Iron deficiency] 07-13-2022 Episodic Comment on above: Problem List clean-u p per request of Phys. EHR Cmte Other aftercare (6 sources) Drug therapy finding; Translations: [Long-term (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 of anticoagulants] Episodic Other aftercare (6 sources) Long-term current use of anticoagulant; Translations: [long term acute care registered nurse (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 of anticoagulants] Onset: 03-25-2023 05-04-2023 Episodic Other aftercare (8 sources) Taking high risk medication; Translations: [Other long term care social worker (current) drug therapy] Onset: 03-25-2023 03-25-2023 Episodic Other aftercare (2 sources) Other custodial (current) drug therapy; Translations: [Other long term care social worker (current) drug therapy] Onset: 03-25-2023 Episodic Other aftercare (2 sources) long term acute care registered nurse (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 of anticoagulants; Translations: [long term acute care registered nurse (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 of anticoagulants] Onset: 03-25-2023 Episodic Other circulatory disease (8 sources) Low blood pressure; Translations: [Hypotension, unspecified] 07-10-2022 Episodic Comment on above: Problem List clean-u p per request of Phys. EHR Cmte Other circulatory disease (1 source) Hypotension, unspecified; Translations: [Hypotension, unspecified] 07-10-2022 Episodic Other circulatory disease (4 sources) History of sick sinus syndrome; Translations: [Personal history of other diseases of circulatory system] Episodic Other circulatory disease (7 sources) H/O: atrial fibrillation; Translations: [Personal history of other diseases of the circulatory system] 07-12-2022 Episodic Other diseases of kidney and ureters (8 sources) Renal impairment; Translations: [Disorder of kidney [...] Chronic Other disorders of stomach and duodenum (7 sources) Upset stomach; Translations: [Functional dyspepsia] 07-19-2022 Episodic Comment on above: Problem List clean-u p per request of Phys. EHR Cmte Other hematologic conditions (8 sources) Raised cardiac enzyme or marker; Translations: [Other specified abnormalities of plasma proteins] 07-10-2022 Episodic Comment on above: Problem List clean-u p per request of Phys. EHR Cmte Other hematologic conditions (1 source) Other specified abnormalities of plasma proteins; Translations: [Other abnormal blood chemistry] 07-10-2022 Episodic Other liver diseases (7 sources) Elevated liver enzymes level; Translations: [Abnormal levels of other serum enzymes] 07-11-2022 Episodic Comment on above: Problem List clean-u p per request of Phys. EHR Cmte Other liver diseases (7 sources) Ischemic hepatitis; Translations: [Acute and subacute hepatic failure without coma] 07-11-2022 Episodic Comment on above: Problem List clean-u p per request of Phys. EHR Cmte Other lower respiratory disease (5 sources) Solitary pulmonary nodule; Translations: [SOLITARY PULMONARY NODULE] Onset: 08-10-2021 Episodic Other lower respiratory disease (8 sources) Hypoxemia; Translations: [Hypoxemia] 07-10-2022 Episodic Comment [...] Chronic Other nutritional; endocrine; and metabolic disorders (6 sources) Overweight in adulthood with body mass index of 25 or more but less than 30; Translations: [Body mass index (BMI) 25.0-25.9, adult] Onset: 05-04-2023 05-04-2023 Episodic Other nutritional; endocrine; and metabolic disorders (2 sources) Body mass index (BMI) 26.0-26.9, adult; Translations: [Body mass index (BMI) 26.0-26.9, adult] Onset: 10-08-2024 Episodic Other screening for suspected conditions (not mental disorders or infectious disease) (3 sources) Echocardiogram abnormal; Translations: [Nonspecific (abnormal) findings on radiological and other examination of other intrathoracic organs] Episodic Peripheral and visceral atherosclerosis (18 sources) Peripheral vascular disease, unspecified; Translations: [Intermittent claudication] Onset: 08-10-2021 Chronic Pulmonary heart disease (1 source) Pulmonary hypertension, unspecified; Translations: [PULMONARY HYPERTENSION UNSPECIFIED] Onset: 08-10-2021 Chronic Residual codes; unclassified (4 sources) Body mass index 20-24 - normal; Translations: [Body Mass Index between 19-24, adult] Episodic Respiratory failure; insufficiency; arrest (adult) (10 sources) Acute and chronic respiratory failure with hypercapnia; Translations: [Acute and chronic respiratory failure with hypoxia] Onset: 08-10-2021 07-11-2022 Chronic Comment on above: Problem List clean-u p per request of Phys. EHR Cmte Substance-related disorders (9 sources) Nicotine dependence, cigarettes, uncomplicated; Translations: [Nicotine [...] Onset: 08-10-2021 Episodic Other aftercare (1 source) correction (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 of aspirin; Translations: [SNF CURRENT USE OF ASPIRIN] Onset: 08-10-2021 Episodic Other aftercare (1 source) correction (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 of antithrombotics/antip latelets; Translations: [SNF ANTITHROMBOT/ANTIPLAT LETS] Onset: 08-10-2021 Episodic Other nutritional; endocrine; and metabolic disorders (2 sources) Body mass index (BMI) 27.0-27.9, adult; Translations: [Body mass index (BMI) 27.0-27.9, adult] Onset: 04-24-2024 Episodic Other skin disorders (6 sources) Skin lesion; Translations: [Disorder of the skin and subcutaneous tissue, unspecified] Onset: 03-01-2023 03-01-2023 Episodic Pneumonia (except that caused by tuberculosis [...] METHICILLIN UMM STAPH] Onset: 08-10-2021 Episodic Unclassified (3 sources) Onset: 05-04-2023 Resolved: 10-08-2024 05-04-2023 Results Test Name Value Interpretation Reference Range Facility SEGMENTAL BLOOD PRESSUREon 0 09-16-2024 [place] [address] Cardiology Report Signed Patient: JAIME LECHUGA MR#: [id number] : 1955 Acct:[id number] Age/Sex: 68 / M ADM Date: 09/14/24 Loc: CARD Attending Dr: Ran Chavez M.D. Ordering Physician: Ran Chavez M.D. Date of Service: 09/14/24 Procedure(s): CA segmental UE or LE ROCIO Accession Number(s): [id number] cc: Ran Chavez M.D.; Physician,Non-Staff Shakir [facility] Test Date: 2024-09-14 Pat Name: JAIME LECHUGA Department: Room: - Gender: Male Remote Mortgage Underwriter: ALFREDO AGUILERA : 1955 Requested By: 1892 Order Number: [id number] Reading MD: ELAINA SHERIDAN M.D. Interpretive Statements Summary of the findings: Right leg: LASHA= 0.64; TBI= 0.54. Doppler waveforms demonstrate monophasic flow at the posterior tibial and dorsalis pedis arteries. Left leg: LASHA= 0.54; TBI= 0.33. Doppler waveforms demonstrate monophasic flow at the posterior tibial and dorsalis pedis arteries. Segmental pressures: Segmental pressures indicate significant bilateral inflow disease and significant left femoropopliteal disease. Pulse volume recordings: PVRs at the high thigh, below knee, and ankle levels show dampened waveforms. Conclusion: Right and left ankle-brachial indices are suggestive of reduced overall arterial flow at rest. Toe-brachial indices are suggestive of PAD. Segmental pressures show significant bilateral inflow disease and significant left femoropopliteal disease. Pulse volume recordings indicate reduced overall resting arterial flow. The study shows evidence of PAD (bilateral inflow and left femoropopliteal) with reduced overall arterial flow at rest. Electronically Signed On 09-16-2024 16:19:10 EDT by ELAINA SHERIDAN M.D. Dictated By: ELAINA SHERIDAN Signed By: 09/16/24 1619 09/16/24 1619 DD/ 1405 TD/TT: Speed Reading Teacher: [facility] Radiology, Radiologi MD merari - 09/17/2024 [place] [address] Cardiology Report Signed Patient: JAIME LECHUGA MR#: [id number] : 1955 Acct:[id number] Age/Sex: 68 / M ADM Date: 09/14/24 Loc: CARD Attending Dr: Ran Chavez M.D. Ordering Physician: Ran Chavez M.D. Date of Service: 09/14/24 Procedure(s): CA segmental UE or LE ROCIO Accession Number(s): [id number] cc: Ran Chavez M.D.; Physician,Non-Staff Shakir [facility] Test Date: 2024-09-14 Pat Name: JAIME LECHUGA Department: Room: - Gender: Male Remote Mortgage Underwriter: ALFREDO WILLY : 1955 Requested By: 1892 Order Number: [id number] Reading MD: ELAINA SHERIDAN M.D. Interpretive Statements Summary of the findings: Right leg: LASHA= 0.64; TBI= 0.54. Doppler waveforms demonstrate monophasic flow at the posterior tibial and dorsalis pedis arteries. Left leg: LASHA= 0.54; TBI= 0.33. Doppler waveforms demonstrate monophasic flow at the posterior tibial and dorsalis pedis arteries. Segmental pressures: Segmental pressures indicate significant bilateral inflow disease and significant left femoropopliteal disease. Pulse volume recordings: PVRs at the high thigh, below knee, and ankle levels show dampened waveforms. Conclusion: Right and left ankle-brachial indices are suggestive of reduced overall arterial flow at rest. Toe-brachial indices are suggestive of PAD. Segmental pressures show significant bilateral inflow disease and significant left femoropopliteal disease. Pulse volume recordings indicate reduced overall resting arterial flow. The study shows evidence of PAD (bilateral inflow and left femoropopliteal) with reduced overall arterial flow at rest. Electronically Signed On 09-16-2024 16:19:10 EDT by ELAINA SHERIDAN M.D. Dictated By: ELAINA SHERIDAN Signed By: 09/16/24 1619 09/16/24 1619 DD/ 1405 TD/TT: Speed Reading Teacher: [employer] SEGMENTAL BLOOD PRESSUREOrde red By: Radiologist Radiology on 09-16-2024 [facility] [place] Work Phone: SEGMENTAL BLOOD PRESSUREon 0 09-14-2024 Radiology Study observation (narrative) [facility] [place] LUNG SCREENING LOW DOSEon 08-06-2024 [place] [address] CT Scan Report Signed Patient: JAIME LECHUGA MR#: [id number] : 1955 Acct:[id number] Age/Sex: 68 / M ADM Date: 08/06/24 Loc: CT Attending Dr: Meliton Hughes D.O. Ordering Physician: Meliton Hughes D.O. Date of Service: 08/06/24 Procedure(s): CT lung screening low-dose Accession Number(s): [id number] cc: JOSE MANUEL YBARRA [place] [id number] Patient Name: JAIME LECHUGA MRN: [id number] date: 1955 Sex: M Assigned Patient Location: CT Current Patient Location: CT Accession/Order Number: [id number] Exam Date: 08/06/2024 12:07 Report Date: 08/06/2024 [...] Anton M.D. 08/06/2024 12:18 PM Dictation Location: [place] [address] Electronically authenticated by: [id number] Y Date: 08/06/2024 12:18 Dictated By: Gretchen Anton M.D. Signed By: 08/06/24 1221 DD/ 1218 TD/TT: Speed Reading Teacher: [facility] Radiology, Radiologi MD merari - 08/06/2024 [place] [address] CT Scan Report Signed Patient: JAIME LECHUGA MR#: [id number] : 1955 Acct:[id number] Age/Sex: 68 / M ADM Date: 08/06/24 Loc: CT Attending Dr: Meliton Hughes D.O. Ordering Physician: Meliton Hughes D.O. Date of Service: 08/06/24 Procedure(s): CT lung screening low-dose Accession Number(s): [id number] cc: YBARRAJOSE MANUEL [place] [place] [id number] Patient Name: JAIME LECHUGA MRN: [id number]:[id number] date: 1955 Sex: M Assigned Patient Location: CT Current Patient Location: CT Accession/Order Number: [id number] Exam Date: 08/06/2024 12:07 Report Date: 08/06/2024 [...] Anton M.D. 08/06/2024 12:18 PM Dictation Location: [place] [address] Electronically authenticated by: [id number] Y Date: 08/06/2024 12:18 Dictated By: Gretchen Anton M.D. Signed By: 08/06/24 1221 DD/ 1218 TD/TT: Speed Reading Teacher: [facility] [place] Radiology Study observation (narrative) [facility] CT LUNG SCREENING LOW DOSEOr dered By: Radiologist Radiology on 08-06-2024 [facility] [place] Work Phone: No Panel InformationOrdered By: Bradford Vines on 07-10-2024 Miscellaneous Pathology Test See comment [facility] Comment on above: See report. Scanned copy available in EMR. Pathology Request for Lab Co rpon 07-10-2024 Pathology Request for Lab Fatoumata Normal [facility] Comment on above: Order Comment: SKIN Result Comment: See report. Scanned copy available in EMR. PERFORMED BY: [place] [address] PATHOLOGIST ELDERLY CAREGIVER RAN CHATMAN M.D. Performed By: #### P ATH TO [facility] #### [address] No Panel Informationon 05-24 Type of biopsy: tangential Informed consent: discussed [...] taken Amount of lidocaine used: 1.0 cc [facility] ALL CBC WITH AUTO DIFFon BASOPHILS ABSOLUTE AUTO 0.[address] [facility] Basophils/100 WBC (Bld) 0.3 % 0.2 - 2.0 % [facility] Eosinophils/100 WBC (Bld) 0.3 % Low 0.9 - 7.0 % [facility] Erythrocyte distribution width (RBC) [Ratio] 12.9 % 11.0 - 15.0 % [facility] Hematocrit (Bld) [Volume fraction] 40.5 % Low 42.0 - 54.0 % [facility] Hemoglobin (Bld) [Mass/Vol] 12.5 g/dL Low 14.0 - 18.0 g/dL [facility] IMMATURE GRANULOCYTES ABS AUTO 0.04 High [facility] Immature granulocytes/100 WBC (Bld) 0.3 % 0.0 - 0.5 % [facility] Interpretation and review of laboratory results Abnormal [facility] LYMPHOCYTES ABSOLUTE AUTO 2.6 [facility] Lymphocytes/100 WBC (Bld) 18.4 % Low 20.5 - 60.0 % [facility] MCH (RBC) [Entitic mass] 31.9 pg 25. 9 - 34.0 pg [facility] MCHC (RBC) [Mass/Vol] 30.9 g/dL 29.9 - 35.2 g/dL [facility] MCV (RBC) [Entitic vol] 103.3 fL High 80.0 - 94.0 fL [facility] MONOCYTES ABSOLUTE AUTO [address] [facility] Monocytes/100 WBC (Bld) 7.2 % 1.7 - 12.0 % [facility] NEUTROPHILS ABSOLUTE AUTO 10.5 High [facility] Neutrophils/100 WBC (Bld) 73.5 % 43.0 - 75.0 % [facility] Platelet mean volume (Bld) [Entitic vol] 11.6 fL 9.5 - 13.5 fL [facility] TBH EO # 0.1 [facility] PLT 276 [facility] RBC 3.92 Low [facility] WBC 14.4 High [facility] ECG 12 [place] 05-04-2023 Sinus tachycardia Right bundle branch block Left posterior fascicular block Cannot exclude old inferior infarct QTc 462 ms [facility] Work Phone: [facility] Work Phone: Office Visit (Cardiology)on 11-10-2022 Follow-up [...] Complaint 2 month f/u: 'doing fine' JAIMEOTTO ENGHIP is being seen for a 2 week [...] repair History of Pacemaker insertion History of RESOURCES REPRESENTATIVE iliac artery History of Rectal surgery Current [...] Signs Recorded: 10Nov2022 12:43PM Heart Rate77, Apical [id number], RUE, Sitting Diasto (more content not included)... Normal [facility] Tobacco Screening.on 023 Adult depression screening assessment No [employer] DO Work Phone: Fall risk assessment a) No falls within the last year [employer] 250 DO Work Phone: Tobacco use status CPHS b) No M Lemur [employer] DO Work Phone: Office Visit (Cardiology)on 10-25-2022 [...] twice daily Basic Metabolic Panel; Status:Active; Requested for:[id number]; Start: Metoprolol Succinate ER 25 MG Oral Tablet Extended Release 24 Hour (Toprol XL); TAKE 1 TABLET DAILY Complete Blood Count; Status:Active; Requested for:[id number]; TSH WITH REFLEX TO FREE T4 IF ABNORMAL; Status:Active; Requested for:[id number]; Unlinked Stop: Clopidogrel Bisulfate 75 MG Oral [...] contact the office if new symptoms arise. 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 Patient presents to the office ambulatory with steady gait. This is initial in clinic follow-up at [facility]. Patient reports remote history of iliac stenting in [place] and has been maintained on Plavix for 7 years, follows with vascular in [place]. Reports being hospitalized last year in [place] due to atrial fibrillation and started on Eliquis at that time, no antiarrhythmics. June 2022 presented to [facility] due to weakness, seen in consult by [...] labs approximately 1 month ago at the [facility]. He was seen outpatient by [...] with anticoagu (more content not included)... Normal [place] Tobacco Screening.on 023 Adult depression screening assessment No Merged with [facility] [employer] DO Work Phone: Fall risk assessment a) No falls within the last year Merged with [facility] [place] 250 DO Work Phone: Tobacco use status CP b) No M [facility] [place] 250 DO Work Phone: Radiologyon 10-18-2022 XR Chest 2 Views Normal [facility]-Sandu malena 250 DO Work Phone: Activated partial thrombopla stin time (aPTT) in platelet poor plasma by coagulation aOrdered By: Iris Holliday on 07-10-2022 aPTT Coag (PPP) [Time] 28.7 s 25.1-36.5 [facility] Alanine aminotransferase [En zymatic activity/volume] in Serum or PlasmaOrdered By: Iris Holliday on 07-10-2022 ALT [Catalytic activity/Vol] 615 U/L 7-52 [facility] Albumin [Mass/volume] in Ser um or Plasma by Bromocresol green (BCG) dye binding methoOrdered By: Iris Holliday on 07-10-2022 Albumin BCG dye [Mass/Vol] 3.3 g/dL 3.5-5.7 [facility] Alkaline phosphatase [Enzyma tic activity/volume] in Serum or PlasmaOrdered By: Iris Holliday on 07-10-2022 ALP [Catalytic activity/Vol] 235 U/L 34-104 [facility] Anisocytosis LM Ql (Bld)Orde red By: Iris Holliday on 07-10-2022 Anisocytosis Ql (Bld) Slight [facility] Aspartate aminotransferase [ Enzymatic activity/volume] in Serum or PlasmaOrdered By: Iris Holliday on 07-10-2022 AST [Catalytic activity/Vol] 789 U/L 13-39 [facility] Automated erythrocytes count in urine sediment (number/area)Ordered By: Iris Holliday on 07-10-2022 RBC Auto (Urine sed) [#/Area] 5-9 [HPF] 0-4 [facility] Automated leukocytes count i n urine sediment (number/area)Ordered By: Iris Holliday on 07-10-2022 WBC Auto (Urine sed) [#/Area] 5-9 [HPF] 0-4 [facility] Basophils Auto (Bld) [#/Vol] Ordered By: Iris Holliday on 07-10-2022 Basophils (Bld) [#/Vol] 0.1 10*3/uL 0.0-0.2 [facility] Basophils/100 WBC Auto (Bld) Ordered By: Iris Holliday on 07-10-2022 Basophils/100 WBC (Bld) 0.6 % . F [facility] Bilirubin Test strip Ql (U)O rdered By: Iris Holliday on 07-10-2022 Bilirubin Ql (U) 1+ Negative [facility] Bilirubin.total [Mass/volume ] in Serum or PlasmaOrdered By: Iris Holliday on 07-10-2022 Bilirubin [Mass/Vol] 1.3 mg/dL 0.3-1.0 [facility] Comment on above: Samples from patient s who have taken Naproxen have shown spurious elevation in Total Bilirubin levels. A metabolite of Naproxen, O-desmethylnaproxen, has been shown to interfere with the Nereida method for measuring Total Bilirubin. Calcium [Mass/volume] in Ser um or PlasmaOrdered By: Iris Holliday on 07-10-2022 Calcium [Mass/Vol] 7.1 mg/dL 8.6-10.3 [facility] Carbon dioxide, total [Moles /volume] in Serum or PlasmaOrdered By: Iris Holliday on 07-10-2022 CO2 [Moles/Vol] 26.6 mmol/L 21.0-31.[address] [facility] Chloride [Moles/volume] in S aakash or PlasmaOrdered By: Iris Holliday on 07-10-2022 Chloride [Moles/Vol] 93 mmol/L 98-107 [facility] Color Auto (U)Ordered By: Cindy Holliday on 07-10-2022 Color (U) Dark yellow Yellow [facility] Creatine kinase [Enzymatic a ctivity/volume] in Serum or PlasmaOrdered By: Iris Holliday on 07-10-2022 CK [Catalytic activity/Vol] 53 U/L 30-223 [facility] Creatinine [Mass/volume] in Serum or PlasmaOrdered By: Iris Holliday on 07-10-2022 Creatinine [Mass/Vol] 2.17 mg/dL 0.70-1.30 [facility] Digoxin [Mass/volume] in Ser um or PlasmaOrdered By: Iris Holliday on 07-10-2022 Digoxin [Mass/Vol] 1.5 ng/mL 0.9-2.0 [facility] Comment on above: Last dose: - Eosinophils Auto (Bld) [#/Vo l]Ordered By: Iris Holliday on 07-10-2022 Eosinophils (Bld) [#/Vol] 0.0 10*3/uL 0.0-0.45 [facility] Eosinophils/100 WBC Auto (Bl d)Ordered By: Iris Holliday on 07-10-2022 Eosinophils/100 WBC (Bld) 0.0 % . [facility] Erythrocyte distribution wid th Auto (RBC) [Ratio]Ordered By: Iris Holliday on 07-10-2022 Erythrocyte distribution width (RBC) [Ratio] 18.0 % 12.0-14.8 [facility] Fecal occult blood detection by immunochemistryOrdered By: Iris Holliday on 07-10-2022 Hemoglobin.gastrointesti nal Ql (Stl) [facility] Globulin Calc (S) [Mass/Vol] Ordered By: Iris Holliday on 07-10-2022 Globulin (S) [Mass/Vol] 3.2 g/dL F [facility] Glucose [Mass/volume] in Ser um or PlasmaOrdered By: Iris Holliday on 07-10-2022 Glucose [Mass/Vol] 110 mg/dL 70-100 [facility] Comment on above: ADA recommended refe rence rangeRandom Glucose Reference Range is dependent on time and content of last meal. Glucose of more than 200 mg/dL in a nonstressed, ambulatory subject supports the diagnosis of Diabetes Mellitus. Hematocrit Auto (Bld) [Volum e fraction]Ordered By: Iris Holliday on 07-10-2022 Hematocrit (Bld) [Volume fraction] 26.7 % 38.8-50.0 [facility] Hemoglobin [Mass/volume] in BloodOrdered By: Iris Holliday on 07-10-2022 Hemoglobin (Bld) [Mass/Vol] 7.9 g/dL 13.0-17.0 [facility] Hypochromia LM Ql (Bld)Order ed By: Iris Holliday on 07-10-2022 Hypochromia Ql (Bld) Moderate [facility] Ketones Auto test strip (U) [Mass/Vol]Ordered By: Iris Holliday on 07-10-2022 Ketones (U) [Mass/Vol] Trace Negative Fi [facility] Laboratory - Chemistry and C hemistry - challengeOrdered By: Iris Holliday on 07-10-2022 CO2 [Moles/Vol] 27.1 mmol/L 23.0-27.[address] [facility] HCO3 (Bld) [Moles/Vol] 25.7 mmol/L 23.0-29.0 [facility] Laboratory - CoagulationOrde red By: Iris Holliday on 07-10-2022 PT Coag (PPP) [Time] 48.8 s 9.0-12.9 [facility] Laboratory - UrinalysisOrder ed By: Iris Holliday on 07-10-2022 Hyaline casts LM Ql (Urine sed) 9-19 [LPF] 0-8 [facility] Lactate [Moles/volume] in Se rum or PlasmaOrdered By: Iris Lassiter on 07-10-2022 Lactate [Moles/Vol] 2.9 mmol/L 0.5-2.2 [facility] Comment on above: Critical Result : Ca lled to and read back by: HEBERT QUISPE at: 07/11/2022 00:43:09 by:[id number] Leukocytes [#/volume] correc milton for nucleated erythrocytes in Blood by Automated counOrdered By: Iris Holliday on 07-10-2022 WBC corrected for nucl RBC Auto (Bld) [#/Vol] 12.6 10*3/uL 4.1-10.5 [facility] Lymphocytes Auto (Bld) [#/Vo l]Ordered By: Iris Holliday on 07-10-2022 Lymphocytes (Bld) [#/Vol] 0.9 10*3/uL 1.00-4.8 [facility] Lymphocytes/100 WBC Auto (Bl d)Ordered By: Iris Holliday on 07-10-2022 Lymphocytes/100 WBC (Bld) 7.3 % . [facility] MCH Auto (RBC) [Entitic mass ]Ordered By: Iris Holliday on 07-10-2022 MCH (RBC) [Entitic mass] 23.6 pg 27.5-35.2 [facility] MCHC Auto (RBC) [Mass/Vol]Or dered By: Iris Holliday on 07-10-2022 MCHC (RBC) [Mass/Vol] 29.5 g/dL 32.5-35.6 [facility] MCV Auto (RBC) [Entitic vol] Ordered By: Iris Holliday on 07-10-2022 MCV (RBC) [Entitic vol] 80.0 fL 83.5-101 F [facility] Magnesium [Mass/volume] in S aakash or PlasmaOrdered By: Iris Holliday on 07-10-2022 Magnesium [Mass/Vol] 2.1 mg/dL 1.9-2.7 [facility] Microcytes LM Ql (Bld)Ordere d By: Iris Holliday on 07-10-2022 Microcytes Ql (Bld) Slight [facility] Monocyte distribution width [Entitic volume] in Blood by AutomatedOrdered By: Iris Holliday on 07-10-2022 Monocyte distribution width Auto (Bld) [Entitic vol] 17.34 % 0.00-20.00 [facility] Monocytes Auto (Bld) [#/Vol] Ordered By: Iris Holliday on 07-10-2022 Monocytes (Bld) [#/Vol] 1.3 10*3/uL 0.0-0.8 [facility] Monocytes/100 WBC Auto (Bld) Ordered By: Iris Holliday on 07-10-2022 Monocytes/100 WBC (Bld) 10.0 % . F [facility] Neutrophils Auto (Bld) [#/Vo l]Ordered By: Iris Holliday on 07-10-2022 Neutrophils (Bld) [#/Vol] 10.5 10*3/uL 1.8-7.7 [facility] Neutrophils/100 WBC Auto (Bl d)Ordered By: Iris Holliday on 07-10-2022 Neutrophils/100 WBC (Bld) 82.1 % . [facility] Nitrite Test strip Ql (U)Ord ered By: Iris Holliday on 07-10-2022 Nitrite Ql (U) Negative Negative [facility] No Panel InformationOrdered By: Iris Holliday on 07-10-2022 Arterial Blood Base Excess -0.2 mmol/L -3.0-3.0 [facility] Arterial Blood Oxygen Content 4.4 mmol/L 6.6-9.7 [facility] Arterial Blood Oxygen Saturation 82.7 % 95.0-100.0 [facility] Arterial Blood Partial Pressure CO2 48.0 mm[Hg] 35.0-45.0 [facility] Arterial Blood Partial Pressure O2 54.7 mm[Hg] 80.0-100.0 [facility] Arterial Blood pH 7.35 7.35-7.45 [facility] Blood Gas Critical Value See comment [facility] Comment on above: Critical Value stewart d on: 07/10/2022 at 20:40 Blood Gas Liter Flow 2 L/min [facility] Blood Gas Sample Site Left radial Fi [facility] FiO2 28 % [facility] Oxygen Delivery Device Nasal cannula [facility] D-Dimer Quantitative (PE/DVT) 1944 ng/mL 0-243 [facility] Comment on above: The reference range [...] toco-morbid conditions. Estimated GFR (CKD-EPI) 32.762 mL/Min [facility] Creatinine Clearance (Chem 31.35 [facility] Nucleated erythrocytes [Pres ence] in Blood by Automated countOrdered By: Iris Holliday on 07-10-2022 Nucleated RBC Auto Ql (Bld) 1.7 /100{WBC} 0-0.5 [facility] Platelet adequacy [Presence] in Blood by Light microscopyOrdered By: Iris Holliday on 07-10-2022 Platelets LM Ql (Bld) Normal Normal [facility] Platelet mean volume Auto (B ld) [Entitic vol]Ordered By: Iris Holliday on 07-10-2022 Platelet mean volume (Bld) [Entitic vol] 9.9 fL 6.6-10.1 [facility] Platelet morphology finding [Identifier] in BloodOrdered By: Iris Holliday on 07-10-2022 Platelet morphology finding Nom (Bld) N/A [facility] Platelet poor plasma interna tional normalized ratio (INR) by coagulation assay (relatOrdered By: Iris Holliday on 07-10-2022 INR Coag (PPP) [Relative time] 4.3 {INR} [facility] Comment on above: INR Therapeutic Rang [...] 07-10-2022 Platelets (Bld) [#/Vol] 180 10*3/uL 150-450 [facility] Platelets Large [Presence] i n Blood by Light microscopyOrdered By: Iris Holliday on 07-10-2022 Platelets Large LM Ql (Bld) Slight [facility] Polychromasia [Presence] in Blood by Light microscopyOrdered By: Iris Holliday on 07-10-2022 Polychromasia LM Ql (Bld) Moderate [facility] Potassium [Moles/volume] in Serum or PlasmaOrdered By: Iris Holliday on 07-10-2022 Potassium [Moles/Vol] 5.5 mmol/L 3.5-5.1 [facility] Protein Auto test strip (U) [Mass/Vol]Ordered By: Iris Holliday on 07-10-2022 Protein (U) [Mass/Vol] 100 mg/dL Negative [facility] Protein [Mass/volume] in Ser um or PlasmaOrdered By: Iris Holliday on 07-10-2022 Protein [Mass/Vol] 6.5 g/dL 6.4-8.9 [facility] RBC Auto (Bld) [#/Vol]Ordere d By: Iris Holliday on 07-10-2022 RBC (Bld) [#/Vol] 3.33 10*6/uL 3.90-5.60 [facility] RBC morphologyOrdered By: Cindy Holliday on 07-10-2022 RBC morphology finding Nom (Bld) N/A [facility] Serum or plasma albumin/glob ulin mass ratioOrdered By: Iris Holliday on 07-10-2022 Albumin/Globulin [Mass ratio] 1.0 {ratio} [facility] Serum or plasma anion gap de terminationOrdered By: Iris Holliday on 07-10-2022 Anion gap [Moles/Vol] 17.9 mmol/L 6.0-15.0 [facility] Sodium [Moles/volume] in Ser um or PlasmaOrdered By: Iris Holliday on 07-10-2022 Sodium [Moles/Vol] 132 mmol/L 136-145 [facility] Specific gravity Auto test s trip (U) [Rel density]Ordered By: Iris Holliday on 07-10-2022 Specific gravity (U) [Rel density] 1.020 1.001-1.03 0 [facility] Squamous epithelial cells de tection in urine sediment by light microscopyOrdered By: Iris Holliday on 07-10-2022 Epithelial cells.squamous LM Ql (Urine sed) 3-4 [HPF] 0-2 [facility] Thyrotropin [Units/volume] i n Serum or PlasmaOrdered By: Iris Holliday on 07-10-2022 TSH Qn 2.96 m[IU]/L 0.45-5.33 [facility] Troponin I.cardiac [Mass/vol ume] in Serum or Plasma by Detection limit <= 0.01 ng/Ordered By: Iris Holliday on 07-10-2022 Troponin I.cardiac DL <= 0.01 ng/mL [Mass/Vol] 48.3 pg/mL 0.0-20.0 [facility] Urea nitrogen [Mass/volume] in Serum or PlasmaOrdered By: Iris Holliday on 07-10-2022 Urea nitrogen [Mass/Vol] 59 mg/dL 7-25 [facility] Urine bacteria detection by automated methodOrdered By: Iris Holliday on 07-10-2022 Bacteria Auto Ql (U) None seen None Seen [facility] Urine clarity by refractomet ry automatedOrdered By: Iris Holliday on 07-10-2022 Clarity Refractometry automated (U) Cloudy Clear [facility] Urine glucose measurement by automated test strip (mass/volume)Ordered By: Iris Holliday on 07-10-2022 Glucose Auto test strip (U) [Mass/Vol] Normal mg/dL Normal [facility] Urine hemoglobin detection b y automated test stripOrdered By: Iris Holliday on 07-10-2022 Hemoglobin Auto test strip Ql (U) Negative Negative [facility] Urine leukocyte esterase det ection by automated test stripOrdered By: Iris Holliday on 07-10-2022 Leukocyte esterase Auto test strip Ql (U) 1+ Negative [facility] Urine sediment renal epithel ial cell count by microscopy (number/high power field)Ordered By: Iris Holliday on 07-10-2022 Epithelial cells.renal LM.HPF (Urine sed) [#/Area] 3-4 [HPF] 0-1 [facility] Urobilinogen Auto test strip (U) [Mass/Vol]Ordered By: Iris Holliday on 07-10-2022 Urobilinogen (U) [Mass/Vol] Normal mg/dL Normal [facility] WBC Auto (Bld) [#/Vol]Ordere d By: Iris Holliday on 07-10-2022 WBC (Bld) [#/Vol] 12.6 10*3/uL 4.1-10.5 [facility] pH Auto test strip (U)Ordere d By: Iris Holliday on 07-10-2022 pH (U) 5.0 [pH] 5.0-9.0 [facility] Follow-Upon 12-09-2021 Follow-Up [id number] [facility] 1955 M Date Provider Department Center 12/09/2021 EDISON THORNTON [facility] Family History Problem Relation Age of Onset Diabetes Brother Family Status - Relation Status Age at Brother Level of Service:07307 [place] OFFICE/OUTPATIENT ESTABLISHED LOW MDM 20-29 MIN Reason for Visit and Comments: Congestive Heart Failure [127] Atrial Fibrillation [80] Peripheral Vascular Disease [458] Normal [facility] DIGOXINon 11-16-2021 DIG 0.5 ng/mL Critically low 0.9-2.0 [facility] Comment on above: Performed By: #### M G #### [facility] [address] [address] [address] Carole Carvalho PROF CHEM 8 (BAS METB)on 09- 19-2022 Anion gap [Moles/Vol] 8.7 mmol/L Normal [facility] Comment on above: Performed By: #### B PEOPLE MANAGER #### [facility] [address] [place] [address] Dr. Carole Carvalho Calcium [Mass/Vol] 9.0 mg/dL Normal 8.5-10.1 [facility] Comment on above: Performed By: #### B PEOPLE MANAGER #### [facility] [address] [place] [address] Dr. Carole Carvalho Chloride [Moles/Vol] 103 mmol/L Normal 98-107 [facility] Comment on above: Performed By: #### B PEOPLE MANAGER #### [facility] [address] [place] [address] Dr. Carole Carvalho CO2 [Moles/Vol] 33.2 mmol/L Critically high 21.0-32.0 [facility] Comment on above: Performed By: #### B PEOPLE MANAGER #### [facility] [address] [place] [address] Dr. Carole Carvalho Creatinine [Mass/Vol] 0.90 mg/dL Normal 0.70-1.30 [facility] Comment on above: Performed By: #### B PEOPLE MANAGER #### [facility] [address] [place] [address] Dr. Carole Carvalho EGFR-AF COLOMBIAN >60 Normal >=60 [facility] Comment on above: Performed By: #### B PEOPLE MANAGER #### [facility] [address] [place] [address] Dr. Carole Carvalho EGFR-NON AF COLOMBIAN >60 Normal >=60 [facility] Comment on above: Performed By: #### B PEOPLE MANAGER #### [facility] [address] [place] [address] Dr. Carole Carvalho Glucose [Mass/Vol] 98 mg/dL Normal 74-106 [facility] Comment on above: Performed By: #### B PEOPLE MANAGER #### [facility] [address] [place] [address] Dr. Carole Carvalho Potassium [Moles/Vol] 3.9 mmol/L Normal 3.5-5.1 [facility] Comment on above: Performed By: #### B PEOPLE MANAGER #### [facility] [address] [place], [place] [address] Dr. Carole Carvalho Sodium [Moles/Vol] 141 mmol/L Normal 136-145 [facility] Comment on above: Performed By: #### B PEOPLE MANAGER #### [facility] [address] [place], [place] [address] Dr. Carole Carvalho Urea nitrogen [Mass/Vol] 12.0 mg/dL Normal 7.0-18.0 [facility] Comment on above: Performed By: #### B PEOPLE MANAGER #### [facility] [address] [place], [place] [address] Dr. Carole Carvalho Urea nitrogen/Creatinine [Mass ratio] 13.3 mg/mg Normal [facility] Comment on above: Performed By: #### B PEOPLE MANAGER #### [facility] [address] [place], [place] [address] CHEST WO CONon [...] by: KATE BUSH Date: 2021-11-05 10:18 Normal [facility] CBC AUTO DIFFon 07-27-2021 BASO # 0.0 103/ul Normal 0.0-0.1 [facility] Comment on above: Performed By: #### M G, BMP #### [facility] [address] [place] [address] Dr. Carole Carvalho Basophils/100 WBC (Bld) 0.3 % Normal 0.2-2.0 [facility] Comment on above: Performed By: #### M G, BMP #### [facility] [address] [place] [address] Dr. Carole Carvalho EO # 0.0 103/ul Normal 0.0-0.7 [facility] Comment on above: Performed By: #### M G, BMP #### [facility] [address] [place] [address] Dr. Carole Carvalho Eosinophils/100 WBC (Bld) 0.0 % Critically low 0.9-7.0 [facility] Comment on above: Performed By: #### Holly Gómez, BMP #### [facility] [address] [place] [address] Dr. Carole Carvalho Erythrocyte distribution width (RBC) [Ratio] 15.3 % Critically high 11.0-15.0 [facility] Comment on above: Performed By: #### M G, BMP #### [facility] [address] [place] [address] Dr. Carole Carvalho Hematocrit (Bld) [Volume fraction] 32.1 % Critically low 42.0-54.0 [facility] Comment on above: Performed By: #### M G, BMP #### [facility] [address] [place] [address] Dr. Carole Carvalho Hemoglobin (Bld) [Mass/Vol] 9.8 g/dL Critically low 14.0-18.0 [facility] Comment on above: Performed By: #### M G, BMP #### [facility] [address] [place] [address] Dr. Carole Carvalho IG # 0.12 10e3/ul Critically high 0.00-0.03 [facility] Comment on above: Performed By: #### M G, BMP #### [facility] [address] [address] [address] Carole Carvalho IG % 1.1 % Critically high 0.0-0.5 [facility] Comment on above: Performed By: #### M G, BMP #### [facility] [address] [address] [address] Carole Carvalho LYMPH # 2.0 103/ul Normal 1.2-3.8 [facility] Comment on above: Performed By: #### M G, BMP #### [facility] [address] [address] [address] Carole Carvalho Lymphocytes/100 WBC (Bld) 18.6 % Critically low 20.5-60.0 [facility] Comment on above: Performed By: #### M G, BMP #### [facility] [address] [place] [address] Dr. Carole Carvalho MANUAL DIFF REQ NO Normal [facility] Comment on above: Performed By: #### M G, BMP #### [facility] [address] [place] [address] Dr. Carole Carvalho MCH (RBC) [Entitic mass] 29.7 pg Normal 25.9-34.0 [facility] Comment on above: Performed By: #### M G, BMP #### [facility] [address] [place] [address] Dr. Carole Carvalho MCHC (RBC) [Mass/Vol] 30.5 g/dL Normal 29.9-35.2 [facility] Comment on above: Performed By: #### M G, BMP #### [facility] [address] [place] [address] Dr. Carole Carvalho MCV (RBC) [Entitic vol] 97.3 fL Critically high 80.0-94 .0 [facility] Comment on above: Performed By: #### M G, BMP #### [facility] [address] [place] [address] Dr. Carole Carvalho MONO # 1.2 103/ul Critically high 0.3-0.8 [facility] Comment on above: Performed By: #### M G, BMP #### [facility] [address] [place] [address] Dr. Carole Carvalho Monocytes/100 WBC (Bld) 10.9 % Normal 1.7-12.0 [facility] Comment on above: Performed By: #### M G, BMP #### [facility] [address] [place] [address] Dr. Carole Carvalho NEUT # 7.3 103/ul Critically high 1.4-6.5 [facility] Comment on above: Performed By: #### M G, BMP #### [facility] [address] [place] [address] Dr. Carole Carvalho Neutrophils/100 WBC (Bld) 69.1 % Normal 43.0-75.0 [facility] Comment on above: Performed By: #### M G, BMP #### [facility] [address] [place] [address] Dr. Carole Carvalho Platelet mean volume (Bld) [Entitic vol] 10.7 fL Normal 9.5-13.5 [facility] Comment on above: Performed By: #### M G, BMP #### [facility] [address] [place] [address] Dr. Carole Carvalho PLT 282 103/ul Normal 150-450 [facility] Comment on above: Performed By: #### M G, BMP #### [facility] [address] [place] [address] Dr. Carole Carvalho RBC 3.30 106/ul Critically low 4.70-6.10 [facility] Comment on above: Performed By: #### M G, BMP #### [facility] [address] [place] [address] Dr. Carole Carvalho WBC 10.5 103/ul Normal 4.0-11.0 [facility] Comment on above: Performed By: #### M G, BMP #### [facility] [address] [place] [address] Dr. Carole Carvalho DIGOXINon 07-27-2021 DIG 0.4 ng/mL Critically low 0.9-2.0 [facility] Comment on above: Performed By: #### D IG #### [facility] [address] [place] [address] Dr. Carole Carvalho MAGNESIUMon 07-27-2021 Magnesium [Mass/Vol] 2.0 mg/dL Normal 1.8-2.4 [facility] Comment on above: Performed By: #### M G #### [facility] [address] [place] [address] Dr. Carole Carvaloh PROF CHEM 8 (BAS METB)on Anion gap [Moles/Vol] 10.0 mmol/L Normal [facility] Comment on above: Performed By: #### M G #### [facility] [address] [place] [address] Dr. Carole Carvalho Calcium [Mass/Vol] 7.8 mg/dL Critically low 8.5-10.1 [facility] Comment on above: Performed By: #### M G #### [facility] [address] [place] [address] Dr. Carole Carvalho Chloride [Moles/Vol] 101 mmol/L Normal 98-107 [facility] Comment on above: Performed By: #### M G #### [facility] [address] [place] [address] Dr. Carole Carvalho CO2 [Moles/Vol] 30.7 mmol/L Normal 21.0-32.0 [facility] Comment on above: Performed By: #### M G #### [facility] [address] [place] [address] Dr. Carole Carvalho Creatinine [Mass/Vol] 0.98 mg/dL Normal 0.70-1.30 [facility] Comment on above: Performed By: #### M G #### [facility] [address] [place] [address] Dr. Carole Carvalho EGFR-AF COLOMBIAN >60 Normal >=60 [facility] Comment on above: Performed By: #### M G #### [facility] [address] [place] [address] Dr. Carole Carvalho EGFR-NON AF COLOMBIAN >60 Normal >=60 [facility] Comment on above: Performed By: #### M G #### [facility] [address] [address] [address] Carole Carvalho Glucose [Mass/Vol] 96 mg/dL Normal 74-106 [facility] Comment on above: Performed By: #### M G #### [facility] [address] [address] [address] Carole Carvalho Potassium [Moles/Vol] 3.7 mmol/L Normal 3.5-5.1 [facility] Comment on above: Performed By: #### M G #### [facility] [address] [place] [address] Dr. Carole Carvalho Sodium [Moles/Vol] 138 mmol/L Normal 136-145 [facility] Comment on above: Performed By: #### M G #### [facility] [address] [place] [address] Dr. Carole Carvalho Urea nitrogen [Mass/Vol] 16.0 mg/dL Normal 7.0-18.0 [facility] Comment on above: Performed By: #### M G #### [facility] [address] [place] [address] Dr. Carole Carvalho Urea nitrogen/Creatinine [Mass ratio] 16.3 mg/mg Normal [facility] Comment on above: Performed By: #### M G #### [facility] [address] [place] [address] Dr. Carole Carvalho CBC AUTO DIFFon 07-26-2021 BASO # 0.0 103/ul Normal 0.0-0.1 [facility] Comment on above: Performed By: #### M G, BMP #### [facility] [address] [place] [address] Dr. Carole Carvalho Basophils/100 WBC (Bld) 0.4 % Normal 0.2-2.0 [facility] Comment on above: Performed By: #### M G, BMP #### [facility] [address] [place] [address] Dr. Carole Carvalho EO # 0.0 103/ul Normal 0.0-0.7 [facility] Comment on above: Performed By: #### M G, BMP #### [facility] [address] [place] [address] Dr. Carole Carvalho Eosinophils/100 WBC (Bld) 0.1 % Critically low 0.9-7.0 [facility] Comment on above: Performed By: #### M G, BMP #### [facility] [address] [place] [address] Dr. Carole Carvalho Erythrocyte distribution width (RBC) [Ratio] 15.1 % Critically high 11.0-15.0 [facility] Comment on above: Performed By: #### M G, BMP #### [facility] [address] [place] [address] Dr. Carole Carvalho Hematocrit (Bld) [Volume fraction] 33.5 % Critically low 42.0-54.0 [facility] Comment on above: Performed By: #### M G, BMP #### [facility] [address] [place] [address] Dr. Carole Carvalho Hemoglobin (Bld) [Mass/Vol] 10.3 g/dL Critically low 14.0-18.0 [facility] Comment on above: Performed By: #### M G, BMP #### [facility] [address] [place] [address] Dr. Carole Carvalho IG # 0.06 10e3/ul Critically high 0.00-0.03 [facility] Comment on above: Performed By: #### M G, BMP #### [facility] [address] [place] [address] Dr. Carole Carvalho IG % 0.5 % Normal 0.0-0.5 [facility] Comment on above: Performed By: #### M G, BMP #### [facility] [address] [place] [address] Dr. Carole Carvalho LYMPH # 2.2 103/ul Normal 1.2-3.8 [facility] Comment on above: Performed By: #### M G, BMP #### [facility] [address] [place] [address] Dr. Carole Carvalho Lymphocytes/100 WBC (Bld) 20.1 % Critically low 20.5-60.0 [facility] Comment on above: Performed By: #### M G, BMP #### [facility] [address] [place] [address] Dr. Carole Carvalho MANUAL DIFF REQ NO Normal [facility] Comment on above: Performed By: #### M G, BMP #### [facility] [address] [place] [address] Dr. Carole Carvalho MCH (RBC) [Entitic mass] 29.9 pg Normal 25.9-34.0 [facility] Comment on above: Performed By: #### M G, BMP #### [facility] [address] [place] [address] Dr. Carole Carvalho MCHC (RBC) [Mass/Vol] 30.7 g/dL Normal 29.9-35.2 [facility] Comment on above: Performed By: #### M G, BMP #### [facility] [address] [place] [address] Dr. Carole Carvalho MCV (RBC) [Entitic vol] 97.4 fL Critically high 80.0-94 .0 [facility] Comment on above: Performed By: #### M G, BMP #### [facility] [address] [place] [address] Dr. Carole Carvalho MONO # 1.1 103/ul Critically high 0.3-0.8 [facility] Comment on above: Performed By: #### M G, BMP #### [facility] [address] [place] [address] Dr. Carole Carvalho Monocytes/100 WBC (Bld) 10.0 % Normal 1.7-12.0 [facility] Comment on above: Performed By: #### M G, BMP #### [facility] [address] [place] [address] Dr. Carole Carvalho NEUT # 7.6 103/ul Critically high 1.4-6.5 [facility] Comment on above: Performed By: #### M G, BMP #### [facility] [address] [place] [address] Dr. Carole Carvalho Neutrophils/100 WBC (Bld) 68.9 % Normal 43.0-75.0 [facility] Comment on above: Performed By: #### M Rico, BMP #### [facility] [address] [place] [address] Dr. Carole Carvalho Platelet mean volume (Bld) [Entitic vol] 11.2 fL Normal 9.5-13.5 [facility] Comment on above: Performed By: #### Holly G, BMP #### [facility] [address] [place] [address] Dr. Carole Carvalho PLT 212 103/ul Normal 150-450 [facility] Comment on above: Performed By: #### Holly G, BMP #### [facility] [address] [place] [address] Dr. Carole Carvalho RBC 3.44 106/ul Critically low 4.70-6.10 [facility] Comment on above: Performed By: #### Holly Gómez, BMP #### [facility] [address] [place] [address] Dr. Carole Carvalho WBC 11.1 103/ul Critically high 4.0-11.0 [facility] Comment on above: Performed By: #### Holly Gómez, BMP #### [facility] [address] [place] [address] Dr. Carole Carvalho MAGNESIUMon 07-26-2021 Magnesium [Mass/Vol] 2.1 mg/dL Normal 1.8-2.4 [facility] Comment on above: Performed By: #### Holly Gómez, BMP #### [facility] [address] [place] [address] Dr. Carole Carvalho PROF CHEM 8 (BAS METB)on Anion gap [Moles/Vol] 7.5 mmol/L Normal [facility] Comment on above: Performed By: #### Holly G, BMP #### [facility] [address] [place] [address] Dr. Carole Carvalho Calcium [Mass/Vol] 8.7 mg/dL Normal 8.5-10.1 [facility] Comment on above: Performed By: #### Holly Gómez, BMP #### [facility] [address] [address] [address] Carole Carvalho Chloride [Moles/Vol] 99 mmol/L Normal 98-107 [facility] Comment on above: Performed By: #### M G, BMP #### [facility] [address] [address] [address] Carole Carvalho CO2 [Moles/Vol] 33.2 mmol/L Critically high 21.0-32.0 [facility] Comment on above: Performed By: #### M G, BMP #### [facility] [address] [address] [address] Carole Carvalho Creatinine [Mass/Vol] 0.91 mg/dL Normal 0.70-1.30 [facility] Comment on above: Performed By: #### M G, BMP #### [facility] [address] [place] [address] Dr. Carole Carvalho EGFR-AF COLOMBIAN >60 Normal >=60 [facility] Comment on above: Performed By: #### Holly G, BMP #### [facility] [address] [place] [address] Dr. Carole Carvalho EGFR-NON AF COLOMBIAN >60 Normal >=60 [facility] Comment on above: Performed By: #### M G, BMP #### [facility] [address] [place] [address] Dr. Carole Carvalho Glucose [Mass/Vol] 105 mg/dL Normal 74-106 [facility] Comment on above: Performed By: #### M G, BMP #### [facility] [address] [place] [address] Dr. Carole Carvalho Potassium [Moles/Vol] 3.7 mmol/L Normal 3.5-5.1 [facility] Comment on above: Performed By: #### M G, BMP #### [facility] [address] [place] [address] Dr. Carole Carvalho Sodium [Moles/Vol] 136 mmol/L Normal 136-145 [facility] Comment on above: Performed By: #### M G, BMP #### [facility] [address] [place] [address] Dr. Carole Carvalho Urea nitrogen [Mass/Vol] 21.0 mg/dL Critically high 7.0-18 .0 [facility] Comment on above: Performed By: #### M G, BMP #### [facility] [address] [place] [address] Dr. Carole Carvalho Urea nitrogen/Creatinine [Mass ratio] 23.1 mg/mg Normal [facility] Comment on above: Performed By: #### M G, BMP #### [facility] [address] [place] [address] Dr. Carole Carvalho CBC AUTO DIFFon 07-25-2021 BASO # 0.0 103/ul Normal 0.0-0.1 [facility] Comment on above: Performed By: #### M G, BMP #### [facility] [address] [place] [address] Dr. Carole Carvalho Basophils/100 WBC (Bld) 0.3 % Normal 0.2-2.0 [facility] Comment on above: Performed By: #### M G, BMP #### [facility] [address] [place] [address] Dr. Carole Carvalho EO # 0.0 103/ul Normal 0.0-0.7 [facility] Comment on above: Performed By: #### M G, BMP #### [facility] [address] [place] [address] Dr. Carole Carvalho Eosinophils/100 WBC (Bld) 0.0 % Critically low 0.9-7.0 [facility] Comment on above: Performed By: #### M G, BMP #### [facility] [address] [place] [address] Dr. Carole Carvalho Erythrocyte distribution width (RBC) [Ratio] 14.8 % Normal 11.0-15.0 [facility] Comment on above: Performed By: #### M G, BMP #### [facility] [address] [place] [address] Dr. Carole Carvalho Hematocrit (Bld) [Volume fraction] 33.3 % Critically low 42.0-54.0 [facility] Comment on above: Performed By: #### M G, BMP #### [facility] [address] [address] [address] Carole Carvalho Hemoglobin (Bld) [Mass/Vol] 10.2 g/dL Critically low 14.0-18.0 [facility] Comment on above: Performed By: #### M G, BMP #### [facility] [address] [address] [address] Carole Carvalho IG # 0.05 10e3/ul Critically high 0.00-0.03 [facility] Comment on above: Performed By: #### M G, BMP #### [facility] [address] [place] [address] Dr. Carole Carvalho IG % 0.5 % Normal 0.0-0.5 [facility] Comment on above: Performed By: #### M G, BMP #### [facility] [address] [place] [address] Dr. Carole Carvalho LYMPH # 1.7 103/ul Normal 1.2-3.8 [facility] Comment on above: Performed By: #### M G, BMP #### [facility] [address] [place] [address] Dr. Carole Carvalho Lymphocytes/100 WBC (Bld) 17.0 % Critically low 20.5-60.0 [facility] Comment on above: Performed By: #### G, BMP #### [facility] [address] [place] [address] Dr. Carole Carvalho MANUAL DIFF REQ NO Normal [facility] Comment on above: Performed By: #### M G, BMP #### [facility] [address] [place] [address] Dr. Carole Carvalho MCH (RBC) [Entitic mass] 30.1 pg Normal 25.9-34.0 [facility] Comment on above: Performed By: #### M G, BMP #### [facility] [address] [place] [address] Dr. Carole Carvalho MCHC (RBC) [Mass/Vol] 30.6 g/dL Normal 29.9-35.2 [facility] Comment on above: Performed By: #### M G, BMP #### [facility] [address] [place] [address] Dr. Carole Carvalho MCV (RBC) [Entitic vol] 98.2 fL Critically high 80.0-94 .0 [facility] Comment on above: Performed By: #### M G, BMP #### [facility] [address] [place] [address] Dr. Carole Carvalho MONO # 1.2 103/ul Critically high 0.3-0.8 [facility] Comment on above: Performed By: #### M G, BMP #### [facility] [address] [place] [address] Dr. Carole Carvalho Monocytes/100 WBC (Bld) 11.6 % Normal 1.7-12.0 [facility] Comment on above: Performed By: #### M G, BMP #### [facility] [address] [place] [address] Dr. Carole Carvalho NEUT # 7.0 103/ul Critically high 1.4-6.5 [facility] Comment on above: Performed By: #### M G, BMP #### [facility] [address] [place] [address] Dr. Carole Carvalho Neutrophils/100 WBC (Bld) 70.6 % Normal 43.0-75.0 [facility] Comment on above: Performed By: #### M G, BMP #### [facility] [address] [place] [address] Dr. Carole Carvalho Platelet mean volume (Bld) [Entitic vol] 11.8 fL Normal 9.5-13.5 [facility] Comment on above: Performed By: #### M G, BMP #### [facility] [address] [place] [address] Dr. Carole Carvalho PLT 168 103/ul Normal 150-450 [facility] Comment on above: Performed By: #### M G, BMP #### [facility] [address] [place] [address] Dr. Carole Carvalho RBC 3.39 106/ul Critically low 4.70-6.10 [facility] Comment on above: Performed By: #### Holly G, BMP #### [facility] [address] [place] [address] Dr. Carole Carvalho WBC 9.9 103/ul Normal 4.0-11.0 [facility] Comment on above: Performed By: #### Holly Gómez, BMP #### [facility] [address] [place] [address] Dr. Carole Carvalho MAGNESIUMon 07-25-2021 Magnesium [Mass/Vol] 1.9 mg/dL Normal 1.8-2.4 [facility] Comment on above: Performed By: #### Holly Gómez, BMP #### [facility] [address] [place] [address] Dr. Carole Carvalho PROF CHEM 8 (BAS METB)on Anion gap [Moles/Vol] 6.5 mmol/L Normal [facility] Comment on above: Performed By: #### Holly Gómez, BMP #### [facility] [address] [place] [address] Dr. Carole Carvalho Calcium [Mass/Vol] 8.8 mg/dL Normal 8.5-10.1 [facility] Comment on above: Performed By: #### Holly Gómez, BMP #### [facility] [address] [place] [address] Dr. Carole Carvalho Chloride [Moles/Vol] 99 mmol/L Normal 98-107 [facility] Comment on above: Performed By: #### Holly Gómez, BMP #### [facility] [address] [place] [address] Dr. Carole Carvalho CO2 [Moles/Vol] 33.5 mmol/L Critically high 21.0-32.0 [facility] Comment on above: Performed By: #### Holly Gómez, BMP #### [facility] [address] [place] [address] Dr. Carole Carvalho Creatinine [Mass/Vol] 0.89 mg/dL Normal 0.70-1.30 [facility] Comment on above: Performed By: #### Holly Gómez, BMP #### [facility] [address] [place], [place] [id number] Dr. Carole Carvalho EGFR-AF COLOMBIAN >60 Normal >=60 [facility] Comment on above: Performed By: #### M G, BMP #### [facility] [address] [place] [address] Dr. Carole Carvalho EGFR-NON AF COLOMBIAN >60 Normal >=60 [facility] Comment on above: Performed By: #### M G, BMP #### [facility] [address] [place] [address] Dr. Carole Carvalho Glucose [Mass/Vol] 88 mg/dL Normal 74-106 [facility] Comment on above: Performed By: #### M G, BMP #### [facility] [address] [place] [address] Dr. Carole Carvalho Potassium [Moles/Vol] 4.0 mmol/L Normal 3.5-5.1 [facility] Comment on above: Performed By: #### Holly Gómez, BMP #### [facility] [address] [place] [address] Dr. Carole Carvalho Sodium [Moles/Vol] 135 mmol/L Critically low 136-145 Th [facility] Comment on above: Performed By: #### Holly G, BMP #### [facility] [address] [place] [address] Dr. Carole Carvalho Urea nitrogen [Mass/Vol] 18.0 mg/dL Normal 7.0-18.0 [facility] Comment on above: Performed By: #### Holly Gómez, BMP #### [facility] [address] [place] [address] Dr. Carole Carvalho Urea nitrogen/Creatinine [Mass ratio] 20.2 mg/mg Normal [facility] Comment on above: Performed By: #### M G, BMP #### [facility] [address] [place] [address] Dr. Carole Carvalho BLOOD CULTURE ID/SENSon [id number] Aerobe ID + Suscept Final report Abnormal [facility] Comment on above: Performed By: #### M G #### [facility] [address] [place] [address] Dr. Carole Carvalho Performed By: #### M G, BMP #### [facility] [address] [place] [address] Dr. Carole Carvalho Performed By: #### B PEOPLE MANAGER #### [facility] [address] [place] [address] Dr. Carole Carvalho Antimicrobial Susceptibility Comment Normal [facility] Comment on above: Result Comment: S = Susceptible; I = Intermediate; R = Resistant P = Positive; N = Negative MICS are expressed in micrograms per mL Antibiotic RSLT#1 RSLT#2 RSLT#3 RSLT#4 Ciprofloxacin R Gentamicin S Levofloxacin I Linezolid S Moxifloxacin R Oxacillin S Penicillin R Quinupristin/Dalfopristin S Rifampin S Tetracycline S Trimethoprim/Sulfa S Vancomycin S Performed By: #### M G #### [facility] [address] [place] [address] Dr. Carole Carvalho Result Comment: S = Susceptible; I = Intermediate; R = Resistant P = Positive; N = Negative MICS are expressed in micrograms per mL Antibiotic RSLT#1 RSLT#2 RSLT#3 RSLT#4 Ciprofloxacin R Gentamicin S Levofloxacin I Linezolid S Moxifloxacin I Oxacillin S Penicillin R Quinupristin/Dalfopristin S Rifampin S Tetracycline S Trimethoprim/Sulfa S Vancomycin S Performed By: #### M G, BMP #### [facility] [address] [place] [address] Dr. Carole Carvalho Performed By: #### B PEOPLE MANAGER #### [facility] [address] [place] [address] Dr. Carole Carvalho Result 1 Staphylococcus aureus Abnormal [facility] Comment on above: Result Comment: [...] Meropenem Performed By: #### M G #### [facility] [address] [place] [address] Dr. Carole Carvalho Result Comment: Maxwell robert [...] Performed By: #### M G, BMP #### [facility] [address] [place] [address] Dr. Carole Carvalho Performed By: #### B PEOPLE MANAGER #### [facility] [address] [place] [address] Dr. Carole Carvalho CBC AUTO DIFFon 07-24-2021 BASO # 0.0 103/ul Normal 0.0-0.1 [facility] Comment on above: Performed By: #### M G #### [facility] [address] [place] [address] Dr. Carole Carvalho Basophils/100 WBC (Bld) 0.2 % Normal 0.2-2.0 [facility] Comment on above: Performed By: #### M G #### [facility] [address] [place] [address] Dr. Carole Carvalho EO # 0.0 103/ul Normal 0.0-0.7 [facility] Comment on above: Performed By: #### M G #### [facility] [address] [place] [address] Dr. Carole Carvalho Eosinophils/100 WBC (Bld) 0.0 % Critically low 0.9-7.0 [facility] Comment on above: Performed By: #### M G #### [facility] [address] [place] [address] Dr. Carole Carvalho Erythrocyte distribution width (RBC) [Ratio] 14.6 % Normal 11.0-15.0 [facility] Comment on above: Performed By: #### M G #### [facility] [address] [place] [address] Dr. Carole Carvalho Hematocrit (Bld) [Volume fraction] 34.2 % Critically low 42.0-54.0 [facility] Comment on above: Performed By: #### M G #### [facility] [address] [place] [address] Dr. Carole Carvalho Hemoglobin (Bld) [Mass/Vol] 10.3 g/dL Critically low 14.0-18.0 [facility] Comment on above: Performed By: #### M G #### [facility] [address] [place] [address] Dr. Carole Carvalho IG # 0.04 10e3/ul Critically high 0.00-0.03 [facility] Comment on above: Performed By: #### M G #### [facility] [address] [place] [address] Dr. Carole Carvalho IG % 0.5 % Normal 0.0-0.5 [facility] Comment on above: Performed By: #### M G #### [facility] [address] [place] [address] Dr. Carole Carvalho LYMPH # 1.6 103/ul Normal 1.2-3.8 [facility] Comment on above: Performed By: #### M G #### [facility] [address] [place] [address] Dr. Caorle Carvalho Lymphocytes/100 WBC (Bld) 18.1 % Critically low 20.5-60.0 [facility] Comment on above: Performed By: #### M G #### [facility] [address] [place] [address] Dr. Carole Carvalho MANUAL DIFF REQ NO Normal [facility] Comment on above: Performed By: #### M G #### [facility] [address] [place] [address] Dr. Carole Carvalho MCH (RBC) [Entitic mass] 29.8 pg Normal 25.9-34.0 [facility] Comment on above: Performed By: #### M G #### [facility] [address] [place] [address] Dr. Carole Carvalho MCHC (RBC) [Mass/Vol] 30.1 g/dL Normal 29.9-35.2 [facility] Comment on above: Performed By: #### M G #### [facility] [address] [place] [address] Dr. Carole Carvalho MCV (RBC) [Entitic vol] 98.8 fL Critically high 80.0-94 .0 [facility] Comment on above: Performed By: #### M G #### [facility] [address] [place] [address] Dr. Carole Carvalho MONO # 1.1 103/ul Critically high 0.3-0.8 [facility] Comment on above: Performed By: #### M G #### [facility] [address] [place] [address] Dr. Carole Carvalho Monocytes/100 WBC (Bld) 12.6 % Critically high 1.7-12. 0 [facility] Comment on above: Performed By: #### M G #### [facility] [address] [place] [address] Dr. Carole Carvalho NEUT # 5.9 103/ul Normal 1.4-6.5 [facility] Comment on above: Performed By: #### M G #### [facility] [address] [place] [address] Dr. Carole Carvalho Neutrophils/100 WBC (Bld) 68.6 % Normal 43.0-75.0 [facility] Comment on above: Performed By: #### M G #### [facility] [address] [address] [address] Carole Carvalho Platelet mean volume (Bld) [Entitic vol] 11.7 fL Normal 9.5-13.5 [facility] Comment on above: Performed By: #### M G #### [facility] [address] [address] [address] Carole Carvalho PLT 142 103/ul Critically low 150-450 [facility] Comment on above: Performed By: #### M G #### [facility] [address] [address] [address] Carole Carvalho RBC 3.46 106/ul Critically low 4.70-6.10 [facility] Comment on above: Performed By: #### M G #### [facility] [address] [place] [address] Dr. Carole Carvalho WBC 8.6 103/ul Normal 4.0-11.0 [facility] Comment on above: Performed By: #### M G #### [facility] [address] [place] [address] Dr. Carole Carvalho MAGNESIUMon 07-24-2021 Magnesium [Mass/Vol] 1.9 mg/dL Normal 1.8-2.4 [facility] Comment on above: Performed By: #### B PEOPLE MANAGER #### [facility] [address] [place] [address] Dr. Carole Carvalho OCC BLD IMMUNO SCREENon 06-29 OCCULT BLOOD Positive Abnormal NEGATIVE [facility] Comment on above: Performed By: #### C VDTBH #### [facility] [address] [place] [address] Dr. Carole Carvalho PROF CHEM 8 (BAS METB)on Anion gap [Moles/Vol] 4.7 mmol/L Normal [facility] Comment on above: Performed By: #### B PEOPLE MANAGER #### [facility] [address] [place] [address] Dr. Carole Carvalho Calcium [Mass/Vol] 8.2 mg/dL Critically low 8.5-10.1 Th [facility] Comment on above: Performed By: #### B PEOPLE MANAGER #### [facility] [address] [address] [address] Carole Carvalho Chloride [Moles/Vol] 96 mmol/L Critically low 98-107 [facility] Comment on above: Performed By: #### B PEOPLE MANAGER #### [facility] [address] [place] [address] Dr. Carole Carvalho CO2 [Moles/Vol] 36.1 mmol/L Critically high 21.0-32.0 [facility] Comment on above: Performed By: #### B PEOPLE MANAGER #### [facility] [address] [place] [address] Dr. Carole Carvalho Creatinine [Mass/Vol] 0.59 mg/dL Critically low 0.70-1.30 [facility] Comment on above: Performed By: #### B PEOPLE MANAGER #### [facility] [address] [place] [address] Dr. Carole Carvalho EGFR-AF COLOMBIAN >60 Normal >=60 [facility] Comment on above: Performed By: #### B PEOPLE MANAGER #### [facility] [address] [place] [address] Dr. Carole Carvalho EGFR-NON AF COLOMBIAN >60 Normal >=60 [facility] Comment on above: Performed By: #### B PEOPLE MANAGER #### [facility] [address] [place] [address] Dr. Carole Carvalho Glucose [Mass/Vol] 104 mg/dL Normal 74-106 [facility] Comment on above: Performed By: #### B PEOPLE MANAGER #### [facility] [address] [place] [address] Dr. Carole Carvalho Potassium [Moles/Vol] 3.8 mmol/L Normal 3.5-5.1 [facility] Comment on above: Performed By: #### B PEOPLE MANAGER #### [facility] [address] [place] [address] Dr. Carole Carvalho Sodium [Moles/Vol] 133 mmol/L Critically low 136-145 Th [facility] Comment on above: Performed By: #### B PEOPLE MANAGER #### [facility] [address] [place] [address] Dr. Carole Carvalho Urea nitrogen [Mass/Vol] 10.0 mg/dL Normal 7.0-18.0 [facility] Comment on above: Performed By: #### B PEOPLE MANAGER #### [facility] [address] [place] [address] Dr. Carole Carvalho Urea nitrogen/Creatinine [Mass ratio] 16.9 mg/mg Normal [facility] Comment on above: Performed By: #### B PEOPLE MANAGER #### [facility] [address] [place] [address] Dr. Carole Carvalho CBC AUTO DIFFon 07-23-2021 BASO # 0.0 103/ul Normal 0.0-0.1 [facility] Comment on above: Performed By: #### M G, BMP #### [facility] [address] [place] [address] Dr. Carole Carvalho Basophils/100 WBC (Bld) 0.3 % Normal 0.2-2.0 [facility] Comment on above: Performed By: #### M G, BMP #### [facility] [address] [place] [address] Dr. Carole Carvalho EO # 0.0 103/ul Normal 0.0-0.7 [facility] Comment on above: Performed By: #### M G, BMP #### [facility] [address] [place] [address] Dr. Carole Carvalho Eosinophils/100 WBC (Bld) 0.0 % Critically low 0.9-7.0 [facility] Comment on above: Performed By: #### M G, BMP #### [facility] [address] [place] [address] Dr. Carole Carvalho Erythrocyte distribution width (RBC) [Ratio] 14.6 % Normal 11.0-15.0 [facility] Comment on above: Performed By: #### M G, BMP #### [facility] [address] [place] [address] Dr. Carole Carvalho Hematocrit (Bld) [Volume fraction] 33.8 % Critically low 42.0-54.0 [facility] Comment on above: Performed By: #### M G, BMP #### [facility] [address] [place] [address] Dr. Carole Carvalho Hemoglobin (Bld) [Mass/Vol] 10.2 g/dL Critically low 14.0-18.0 [facility] Comment on above: Performed By: #### M G, BMP #### [facility] [address] [address] [address] Carole Carvalho IG # 0.03 10e3/ul Normal 0.00-0.03 [facility] Comment on above: Performed By: #### M G, BMP #### [facility] [address] [place] [address] Dr. Carole Carvalho IG % 0.4 % Normal 0.0-0.5 [facility] Comment on above: Performed By: #### M G, BMP #### [facility] [address] [place] [address] Dr. Carole Carvalho LYMPH # 1.0 103/ul Critically low 1.2-3.8 [facility] Comment on above: Performed By: #### M G, BMP #### [facility] [address] [place] [address] Dr. Carole Carvalho Lymphocytes/100 WBC (Bld) 14.1 % Critically low 20.5-60.0 [facility] Comment on above: Performed By: #### M G, BMP #### [facility] [address] [place] [address] Dr. Carole Carvalho MANUAL DIFF REQ NO Normal [facility] Comment on above: Performed By: #### M G, BMP #### [facility] [address] [place] [address] Dr. Carole Carvalho MCH (RBC) [Entitic mass] 30.3 pg Normal 25.9-34.0 [facility] Comment on above: Performed By: #### M G, BMP #### [facility] [address] [place] [address] Dr. Carole Carvalho MCHC (RBC) [Mass/Vol] 30.2 g/dL Normal 29.9-35.2 [facility] Comment on above: Performed By: #### M G, BMP #### [facility] [address] [place] [address] Dr. Carole Carvalho MCV (RBC) [Entitic vol] 100.3 fL Critically high 80.0-94 .0 [facility] Comment on above: Performed By: #### M G, BMP #### [facility] [address] [place] [address] Dr. Carole Carvalho MONO # 1.0 103/ul Critically high 0.3-0.8 [facility] Comment on above: Performed By: #### M G, BMP #### [facility] [address] [place] [address] Dr. Carole Carvalho Monocytes/100 WBC (Bld) 13.2 % Critically high 1.7-12. 0 [facility] Comment on above: Performed By: #### M G, BMP #### [facility] [address] [place] [address] Dr. Carole Carvalho NEUT # 5.3 103/ul Normal 1.4-6.5 [facility] Comment on above: Performed By: #### M G, BMP #### [facility] [address] [place] [address] Dr. Carole Carvalho Neutrophils/100 WBC (Bld) 72.0 % Normal 43.0-75.0 [facility] Comment on above: Performed By: #### M G, BMP #### [facility] [address] [place] [address] Dr. Carole Carvalho Platelet mean volume (Bld) [Entitic vol] 12.2 fL Normal 9.5-13.5 [facility] Comment on above: Performed By: #### M G, BMP #### [facility] [address] [place] [address] Dr. Carole Carvalho PLT 120 103/ul Critically low 150-450 [facility] Comment on above: Performed By: #### M G, BMP #### [facility] [address] [place] [address] Dr. Carole Carvalho RBC 3.37 106/ul Critically low 4.70-6.10 [facility] Comment on above: Performed By: #### M G, BMP #### [facility] [address] [place], [place] [address] Dr. Carole Carvalho WBC 7.3 103/ul Normal 4.0-11.0 [facility] Comment on above: Performed By: #### M G, BMP #### [facility] [address] [place], [place] [address] CHEST WO CONon [...] ANNA EUGENE Date: 2021-07-23 08:38 Normal [facility] CTA CHEST WO W CONon [...] by: KATE BUSH Date: 2021-07-23 11:56 Normal [facility] MAGNESIUMon 07-23-2021 Magnesium [Mass/Vol] 2.1 mg/dL Normal 1.8-2.4 [facility] Comment on above: Performed By: #### C BC #### [facility] [address] [address] [address] Carole Carvalho PROF CHEM 8 (BAS METB)on Anion gap [Moles/Vol] 3.3 mmol/L Normal [facility] Comment on above: Performed By: #### C BC #### [facility] [address] [address] [address] Carole Carvalho Calcium [Mass/Vol] 8.3 mg/dL Critically low 8.5-10.1 Th [facility] Comment on above: Performed By: #### C BC #### [facility] [address] [place] [address] Dr. Carole Carvalho Chloride [Moles/Vol] 95 mmol/L Critically low 98-107 [facility] Comment on above: Performed By: #### C BC #### [facility] [address] [address] [address] Carole Carvalho CO2 [Moles/Vol] 38.7 mmol/L Critically high 21.0-32.0 [facility] Comment on above: Performed By: #### C BC #### [facility] [address] [place] [address] Dr. Carole Carvalho Creatinine [Mass/Vol] 0.63 mg/dL Critically low 0.70-1.30 [facility] Comment on above: Performed By: #### C BC #### [facility] [address] [place] [address] Dr. Carole Carvalho EGFR-AF COLOMBIAN >60 Normal >=60 [facility] Comment on above: Performed By: #### C BC #### [facility] [address] [place] [address] Dr. Carole Carvalho EGFR-NON AF COLOMBIAN >60 Normal >=60 [facility] Comment on above: Performed By: #### C BC #### [facility] [address] [place] [address] Dr. Carole Carvalho Glucose [Mass/Vol] 95 mg/dL Normal 74-106 [facility] Comment on above: Performed By: #### C BC #### [facility] [address] [place] [address] Dr. Carole Carvalho Potassium [Moles/Vol] 4.0 mmol/L Normal 3.5-5.1 [facility] Comment on above: Performed By: #### C BC #### [facility] [address] [place] [address] Dr. Carole Carvalho Sodium [Moles/Vol] 133 mmol/L Critically low 136-145 Th [facility] Comment on above: Performed By: #### C BC #### [facility] [address] [place] [address] Dr. Carole Carvalho Urea nitrogen [Mass/Vol] 15.0 mg/dL Normal 7.0-18.0 [facility] Comment on above: Performed By: #### C BC #### [facility] [address] [place] [address] Dr. Carole Carvalho Urea nitrogen/Creatinine [Mass ratio] 23.8 mg/mg Normal [facility] Comment on above: Performed By: #### C BC #### [facility] [address] [place] [address] Dr. Carole Carvalho XR CHEST 1 Von [...] MARIA SAID Date: 2021-07-23 05:23 Normal [facility] CBC AUTO DIFFon 07-22-2021 BASO # 0.0 103/ul Normal 0.0-0.1 [facility] Comment on above: Performed By: #### L ACT #### [facility] [address] [place] [address] Dr. Carole Carvalho Basophils/100 WBC (Bld) 0.3 % Normal 0.2-2.0 [facility] Comment on above: Performed By: #### L ACT #### [facility] [address] [place] [address] Dr. Carole Carvalho EO # 0.0 103/ul Normal 0.0-0.7 [facility] Comment on above: Performed By: #### L ACT #### [facility] [address] [place] [address] Dr. Carole Carvalho Eosinophils/100 WBC (Bld) 0.0 % Critically low 0.9-7.0 [facility] Comment on above: Performed By: #### L ACT #### [facility] [address] [place] [address] Dr. Carole Carvalho Erythrocyte distribution width (RBC) [Ratio] 14.6 % Normal 11.0-15.0 [facility] Comment on above: Performed By: #### L ACT #### [facility] [address] [place] [address] Dr. Carole Carvalho Hematocrit (Bld) [Volume fraction] 34.6 % Critically low 42.0-54.0 [facility] Comment on above: Performed By: #### L ACT #### [facility] [address] [place] [address] Dr. Carole Carvalho Hemoglobin (Bld) [Mass/Vol] 10.6 g/dL Critically low 14.0-18.0 [facility] Comment on above: Performed By: #### L ACT #### [facility] [address] [place] [address] Dr. Carole Carvalho IG # 0.02 10e3/ul Normal 0.00-0.03 [facility] Comment on above: Performed By: #### L ACT #### [facility] [address] [place] [address] Dr. Carole Carvalho IG % 0.3 % Normal 0.0-0.5 [facility] Comment on above: Performed By: #### L ACT #### [facility] [address] [place] [address] Dr. Carole Carvalho LYMPH # 0.6 103/ul Critically low 1.2-3.8 [facility] Comment on above: Performed By: #### L ACT #### [facility] [address] [place] [address] Dr. Carole Carvalho Lymphocytes/100 WBC (Bld) 8.4 % Critically low 20.5-60.0 [facility] Comment on above: Result Comment: dif. not rqd. same as 07/21 Performed By: #### L ACT #### [facility] [address] [place] [address] Dr. Carole Carvalho MANUAL DIFF REQ NO Normal [facility] Comment on above: Performed By: #### L ACT #### [facility] [address] [place] [address] Dr. Carole Carvalho MCH (RBC) [Entitic mass] 30.6 pg Normal 25.9-34.0 [facility] Comment on above: Performed By: #### L ACT #### [facility] [address] [place] [address] Dr. Carole Carvalho MCHC (RBC) [Mass/Vol] 30.6 g/dL Normal 29.9-35.2 [facility] [facility] Comment [facility]: Performed By: #### L ACT #### [facility] [address] [place] [address] Dr. Carole Cravalho MCV (RBC) [Entitic vol] 100.0 fL Critically high 80.0-94 .0 [facility] Comment on above: Performed By: #### L ACT #### [facility] [address] [place] [address] Dr. Carole Carvalho MONO # 0.8 103/ul Normal 0.3-0.8 [facility] Comment on above: Performed By: #### L ACT #### [facility] [address] [place] [address] Dr. Carole Carvalho Monocytes/100 WBC (Bld) 11.5 % Normal 1.7-12.0 [facility] Comment on above: Performed By: #### L ACT #### [facility] [address] [place] [address] Dr. Carole Carvalho NEUT # 5.2 103/ul Normal 1.4-6.5 [facility] Comment on above: Performed By: #### L ACT #### [facility] [address] [place] [address] Dr. Carole Carvalho Neutrophils/100 WBC (Bld) 79.5 % Critically high 43.0-75.0 [facility] Comment on above: Performed By: #### L ACT #### [facility] [address] [place] [address] Dr. Carole Carvalho Platelet mean volume (Bld) [Entitic vol] 11.9 fL Normal 9.5-13.5 [facility] Comment on above: Performed By: #### L ACT #### [facility] [address] [place] [address] Dr. Carole Carvalho PLT 115 103/ul Critically low 150-450 [facility] Comment on above: Performed By: #### L ACT #### [facility] [address] [place] [address] Dr. Carole Carvalho RBC 3.46 106/ul Critically low 4.70-6.10 [facility] Comment on above: Performed By: #### L ACT #### [facility] [address] [place] [address] Dr. Carole Carvalho WBC 6.5 103/ul Normal 4.0-11.0 [facility] Comment on above: Performed By: #### L ACT #### [facility] [address] [place] [address] Dr. Carole Carvalho MAGNESIUMon 07-22-2021 Magnesium [Mass/Vol] 2.0 mg/dL Normal 1.8-2.4 [facility] Comment on above: Performed By: #### M G #### [facility] [address] [place] [address] Dr. Carole Carvalho PROF CHEM 8 (BAS METB)on Anion gap [Moles/Vol] 6.2 mmol/L Normal [facility] Comment on above: Performed By: #### M G #### [facility] [address] [place] [address] Dr. Carole Carvalho Calcium [Mass/Vol] 8.4 mg/dL Critically low 8.5-10.1 Th [facility] Comment on above: Performed By: #### M G #### [facility] [address] [place] [address] Dr. Carole Carvalho Chloride [Moles/Vol] 94 mmol/L Critically low 98-107 [facility] Comment on above: Performed By: #### M G #### [facility] [address] [place] [address] Dr. Carole Carvalho CO2 [Moles/Vol] 39.0 mmol/L Critically high 21.0-32.0 [facility] Comment on above: Performed By: #### M G #### [facility] [address] [place] [address] Dr. Carole Carvalho Creatinine [Mass/Vol] 0.72 mg/dL Normal 0.70-1.30 [facility] Comment on above: Performed By: #### M G #### [facility] [address] [address] [address] Carole Carvalho EGFR-AF COLOMBIAN >60 Normal >=60 [facility] Comment on above: Performed By: #### M G #### [facility] [address] [place] [address] Dr. Carole Carvalho EGFR-NON AF COLOMBIAN >60 Normal >=60 [facility] Comment on above: Performed By: #### M G #### [facility] [address] [place] [address] Dr. Carole Carvalho Glucose [Mass/Vol] 97 mg/dL Normal 74-106 [facility] Comment on above: Performed By: #### M G #### [facility] [address] [place] [address] Dr. Carole Carvalho Potassium [Moles/Vol] 4.2 mmol/L Normal 3.5-5.1 [facility] Comment on above: Performed By: #### M G #### [facility] [address] [place] [address] Dr. Carole Carvalho Sodium [Moles/Vol] 135 mmol/L Critically low 136-145 Th [facility] Comment on above: Performed By: #### M G #### [facility] [address] [place] [address] Dr. Carole Carvalho Urea nitrogen [Mass/Vol] 16.0 mg/dL Normal 7.0-18.0 [facility] Comment on above: Performed By: #### M G #### [facility] [address] [place] [address] Dr. Carole Carvalho Urea nitrogen/Creatinine [Mass ratio] 22.2 mg/mg Normal [facility] Comment on above: Performed By: #### M G #### [facility] [address] [address] [address] Carole Carvalho BLOOD CULTURE ID PANELon A. baumannii Not detected [facility] Comment on above: Performed By: #### L ACT #### [facility] [address] [address] [address] Carole Carvalho BCID CONTROLS PASSED [facility] Comment on above: Performed By: #### L ACT #### [facility] [address] [address] [address] Carole DREWDBTHD BLOOD CULTURE BOTTLE INFORMATION [facility] Comment on above: Performed By: #### L ACT #### [facility] [address] [address] [address] Carole Carvalho BCIDHD1 ANTIMICROBIAL RESIST ANCE GENES [facility] Comment on above: Performed By: #### L ACT #### [facility] [address] [address] [address] Carole DREWDHD2 SEE BELOW [facility] Comment on above: Result Comment: KPC- carbapenem resistance gene, mecA- methecillin resistance gene, van A/B- vancomycin resistance gene Note: Antimicrobial resitance can occur via multiple mechanisms. A Not Detected result for the [employer] antomicrobial resistance gene assays does not indicate antimicrobial susceptibility. Subculturing is required for specis identificationand susceptibility testing of isolates. Performed By: #### L ACT #### [facility] [address] [address] [address] Carole Carvalho BCIDHD3 Positive [facility] Comment on above: Performed By: #### L ACT #### [facility] [address] [address] [address] Carole DREWDHD4 Negative [facility] Comment on above: Performed By: #### L ACT #### [facility] [address] [address] [address] Carole Carvalho BCIDHD5 YEAST [facility] Comment on above: Performed By: #### L ACT #### [facility] [address] [place] [address] Dr. Carole Carvalho BCIDHD6 SEE BELOW [facility] Comment on above: Result Comment: Note : All genus and species BCID [employer] results will be verified post subculturing via Maldi-Tof MS testing methodology. Performed By: #### L ACT #### [facility] [address] [place] [address] Dr. Carole Carvalho Bottle Set: Set 1 Normal [facility] Comment on above: Performed By: #### L ACT #### [facility] [address] [place] [address] Dr. Carole Carvalho Bottle: Anaerobic Normal [facility] Comment on above: Performed By: #### L ACT #### [facility] [address] [place] [address] Dr. Carole Carvalho Claudia albicans Not detected Normal [facility] Comment on above: Performed By: #### L ACT #### [facility] [address] [place] [address] Dr. Carole Carvalho Claudia glabrata Not detected Normal [facility] Comment on above: Performed By: #### L ACT #### [facility] [address] [place] [address] Dr. Carole Carvalho Claudia Krusei Not detected Normal [facility] Comment on above: Performed By: #### L ACT #### [facility] [address] [place] [address] Dr. Carole Carvalho Claudia Parapsilosis Not detected Normal [facility] Comment on above: Performed By: #### L ACT #### [facility] [address] [place] [address] Dr. Carole Carvalho Claudia Tropicalis Not detected Normal [facility] Comment on above: Performed By: #### L ACT #### [facility] [address] [place] [address] Dr. Carole Carvalho E. Cloacae complex Not detected Normal [facility] Comment on above: Performed By: #### L ACT #### [facility] [address] [place] [address] Dr. Carole Carvalho Enterobacteriaceae Not detected Normal [facility] Comment on above: Performed By: #### L ACT #### [facility] [address] [place] [address] Dr. Carole Carvalho Enterococcus Not detected Normal [facility] Comment on above: Performed By: #### L ACT #### [facility] [address] [place] [address] Dr. Carole Carvalho Escheria coli Not detected Normal [facility] Comment on above: Performed By: #### L ACT #### [facility] [address] [place] [address] Dr. Carole Carvalho K. oxytoca Not detected Normal [facility] Comment on above: Performed By: #### L ACT #### [facility] [address] [place] [address] Dr. Carole Carvalho K. pneumoniae Not detected Normal [facility] Comment on above: Performed By: #### L ACT #### [facility] [address] [place] [address] Dr. Carole Carvalho KPC Resistant Gene Not Applicable Normal [facility] Comment on above: Performed By: #### L ACT #### [facility] [address] [place] [address] Dr. Carole Carvalho List. monocytogenes Not detected Normal [facility] Comment on above: Performed By: #### L ACT #### [facility] [address] [place] [address] Dr. Carole Carvalho mecA Resistant Gene Not Applicable Normal [facility] Comment on above: Performed By: #### L ACT #### [facility] [address] [place] [address] Dr. Carole Carvalho Proteus Not detected Normal [facility] Comment on above: Performed By: #### L ACT #### [facility] [address] [place] [address] Dr. Carole Carvalho Pseud. aeruginosa Not detected Normal [facility] Comment on above: Performed By: #### L ACT #### [facility] [address] [place] [address] Dr. Carole Carvalho Seratia marcescens Not detected Normal [facility] Comment on above: Performed By: #### L ACT #### [facility] [address] [place] [address] Dr. Carole Carvalho Site: lt. hand Normal [facility] Comment on above: Performed By: #### L ACT #### [facility] [address] [place] [address] Dr. Carole Carvalho Staph. aureus Detected Critically abnormal [facility] Comment on above: Performed By: #### L ACT #### [facility] [address] [place] [address] Dr. Carole Carvalho Staphylococcus Detected Critically abnormal [facility] Comment on above: Performed By: #### L ACT #### [facility] [address] [place] [address] Dr. Carole Carvalho Strep. agalactiae Not detected Normal [facility] Comment on above: Performed By: #### L ACT #### [facility] [address] [place] [address] Dr. Carole Carvalho Strep. pneumoniae Not detected Normal [facility] Comment on above: Performed By: #### L ACT #### [facility] [address] [place] [address] Dr. Carole Carvalho Strep. pyogenes Not detected Normal [facility] Comment on above: Performed By: #### L ACT #### [facility] [address] [place] [address] Dr. Carole Carvalho Streptococcus Not detected Normal [facility] Comment on above: Performed By: #### L ACT #### [facility] [address] [place] [address] Dr. Carole Carvalho Meka/B Resist. Gene Not Applicable Normal [facility] Comment on above: Performed By: #### L ACT #### [facility] [address] [place] [address] Dr. Carole Carvalho CBC W MANUAL DIFFon 07-21- 22 ANISOCYTOSIS 1+ Normal [facility] Comment on above: Performed By: #### M G, BMP #### [facility] [address] [place] [address] Dr. Carole Carvalho ATYPICAL LYMPH # Normal [facility] Comment on above: Performed By: #### M G, BMP #### [facility] [address] [place] [address] Dr. Carole Carvalho ATYPICAL LYMPH % Normal [facility] Comment on above: Performed By: #### M G, BMP #### [facility] [address] [place] [address] Dr. Carole Carvalho BAND # 0.1 103/ul Normal 0.0-0.3 [facility] Comment on above: Performed By: #### M G, BMP #### [facility] [address] [place] [address] Dr. Carole Carvalho BAND % 1 % Normal 0-5 [facility] Comment on above: Performed By: #### M G, BMP #### [facility] [address] [place] [address] Dr. Carole Carvalho BASOM # 0.00 103/ul Normal 0.00-0.10 [facility] Comment on above: Performed By: #### M G, BMP #### [facility] [address] [place] [address] Dr. Carole Carvalho BASOM % 0.0 % Critically low 0.2-2.0 [facility] Comment on above: Performed By: #### M G, BMP #### [facility] [address] [place] [address] Dr. Carole Carvalho BLAST # Normal [facility] Comment on above: Performed By: #### M G, BMP #### [facility] [address] [place] [address] Dr. Carole Carvalho BLAST % Normal [facility] Comment on above: Performed By: #### M G, BMP #### [facility] [address] [place] [address] Dr. Carole Carvalho CORRECTED WBC Normal 4.0-11.0 [facility] Comment on above: Performed By: #### M G, BMP #### [facility] [address] [place] [address] Dr. Carole Carvalho EOS # 0.00 103/ul Normal 0.00-0.70 [facility] Comment on above: Performed By: #### M G, BMP #### [facility] [address] [address] [address] Carole Carvalho EOS% 0.0 % Critically low 0.9-7.0 [facility] Comment on above: Performed By: #### M G, BMP #### [facility] [address] [address] [address] Carole Carvalho HCT 36.0 % Critically low 42.0-54.0 [facility] Comment on above: Performed By: #### M G, BMP #### [facility] [address] [address] [address] Carole Carvalho HGB 11.2 g/dl Critically low 14.0-18.0 [facility] Comment on above: Performed By: #### M G, BMP #### [facility] [address] [address] [address] Carole Carvalho LYMPHM # 0.43 103/ul Critically low 1.20-3.80 [facility] Comment on above: Performed By: #### M G, BMP #### [facility] [address] [address] [address] Carole Carvalho LYMPHM% 4.0 % Critically low 20.5-60.0 [facility] Comment on above: Performed By: #### M G, BMP #### [facility] [address] [address] [address] Carole Carvalho MCH 30.7 pg Normal 25.9-34.0 [facility] Comment on above: Performed By: #### M G, BMP #### [facility] [address] [address] [address] Carole Carvalho MCHC 31.1 g/dl Normal 29.9-35.2 [facility] Comment on above: Performed By: #### M G, BMP #### [facility] [address] [address] [address] Carole Carvalho MCV 98.6 fL Critically high 80.0-94.0 [facility] Comment on above: Performed By: #### M G, BMP #### [facility] [address] [place] [address] Dr. Carole Carvalho METAMYELOCYTE # Normal [facility] Comment on above: Performed By: #### M G, BMP #### [facility] [address] [place] [address] Dr. Carole Carvalho METAMYELOCYTE % Normal [facility] Comment on above: Performed By: #### M G, BMP #### [facility] [address] [place] [address] Dr. Carole Carvalho MONOM# 0.96 103/ul Critically high 0.30-0.80 [facility] Comment on above: Performed By: #### M G, BMP #### [facility] [address] [place] [address] Dr. Carole Carvalho MONOM% 9.0 % Normal 1.7-12.0 [facility] Comment on above: Performed By: #### M G, BMP #### [facility] [address] [place] [address] Dr. Carole Carvalho MPV 11.6 fL Normal 9.5-13.5 [facility] Comment on above: Performed By: #### M G, BMP #### [facility] [address] [place] [address] Dr. Carole Carvalho MYELOCYTE # Normal [facility] Comment on above: Performed By: #### M G, BMP #### [facility] [address] [place] [address] Dr. Carole Carvalho MYELOCYTE % Normal [facility] Comment on above: Performed By: #### M G, BMP #### [facility] [address] [place] [address] Dr. Carole Carvalho NRBC Normal [facility] Comment on above: Performed By: #### M G, BMP #### [facility] [address] [place] [address] Dr. Carole Carvalho PLT 113 103/ul Critically low 150-450 [facility] Comment on above: Performed By: #### M G, BMP #### [facility] [address] [place] [address] Dr. Carole Carvalho RBC 3.65 106/ul Critically low 4.70-6.10 [facility] Comment on above: Performed By: #### M G, BMP #### [facility] [address] [place] [address] Dr. Carole Carvalho RDW 14.6 % Normal 11.0-15.0 [facility] Comment on above: Performed By: #### M G, BMP #### [facility] [address] [place] [address] Dr. Carole Carvalho SEG # 9.20 103/ul Critically high 1.40-6.50 [facility] Comment on above: Performed By: #### M G, BMP #### [facility] [address] [place] [address] Dr. Carole Carvalho SEG % 86.0 % Critically high 43.0-75.0 [facility] Comment on above: Performed By: #### M G, BMP #### [facility] [address] [place] [address] Dr. Carole Carvalho WBC 10.7 103/ul Normal 4.0-11.0 [facility] Comment on above: Performed By: #### M G, BMP #### [facility] [address] [place] [address] Dr. Carole Carvalho MAGNESIUMon 07-21-2021 Magnesium [Mass/Vol] 2.0 mg/dL Normal 1.8-2.4 [facility] Comment on above: Performed By: #### B PEOPLE MANAGER #### [facility] [address] [place] [address] Dr. Carole Carvalho PROF CHEM 8 (BAS METB)on Anion gap [Moles/Vol] 1.9 mmol/L Normal [facility] Comment on above: Performed By: #### C VDTBH #### [facility] [address] [place] [address] Dr. Carole Carvalho Calcium [Mass/Vol] 8.7 mg/dL Normal 8.5-10.1 [facility] Comment on above: Performed By: #### C VDTBH #### [facility] [address] [address] [address] Carole Carvalho Chloride [Moles/Vol] 91 mmol/L Critically low 98-107 [facility] Comment on above: Performed By: #### C VDTBH #### [facility] [address] [place] [address] Dr. Carole Carvalho CO2 [Moles/Vol] 41.4 mmol/L Critically high 21.0-32.0 [facility] Comment on above: Performed By: #### C VDTBH #### [facility] [address] [place] [address] Dr. Carole Carvalho Creatinine [Mass/Vol] 0.90 mg/dL Normal 0.70-1.30 [facility] Comment on above: Performed By: #### C VDTBH #### [facility] [address] [place] [address] Dr. Carole Carvalho EGFR-AF COLOMBIAN >60 Normal >=60 [facility] Comment on above: Performed By: #### C VDTBH #### [facility] [address] [place] [address] Dr. Carole Carvalho EGFR-NON AF COLOMBIAN >60 Normal >=60 [facility] Comment on above: Performed By: #### C VDTBH #### [facility] [address] [place] [address] Dr. Carole Carvalho Glucose [Mass/Vol] 115 mg/dL Critically high 74-106 [facility] Comment on above: Performed By: #### C VDTBH #### [facility] [address] [place] [address] Dr. Carole Carvalho Potassium [Moles/Vol] 4.3 mmol/L Normal 3.5-5.1 [facility] Comment on above: Performed By: #### C VDTBH #### [facility] [address] [place] [address] Dr. Carole Carvalho Sodium [Moles/Vol] 130 mmol/L Critically low 136-145 Th [facility] Comment on above: Performed By: #### C VDTBH #### [facility] [address] [place] [address] Dr. Carole Carvalho Urea nitrogen [Mass/Vol] 14.0 mg/dL Normal 7.0-18.0 [facility] Comment on above: Performed By: #### C VDTBH #### [facility] [address] [place] [address] Dr. Carole Carvalho Urea nitrogen/Creatinine [Mass ratio] 15.6 mg/mg Normal [facility] Comment on above: Performed By: #### C VDTBH #### [facility] [address] [place] [address] Dr. Carole Carvalho CBC AUTO DIFFon 07-20-2021 BASO # 0.0 103/ul Normal 0.0-0.1 [facility] Comment on above: Performed By: #### B PEOPLE MANAGER #### [facility] [address] [place] [address] Dr. Carole Carvalho Basophils/100 WBC (Bld) 0.3 % Normal 0.2-2.0 [facility] Comment on above: Performed By: #### B PEOPLE MANAGER #### [facility] [address] [place] [address] Dr. Carole Carvalho EO # 0.0 103/ul Normal 0.0-0.7 [facility] Comment on above: Performed By: #### B PEOPLE MANAGER #### [facility] [address] [place] [address] Dr. Carole Carvalho Eosinophils/100 WBC (Bld) 0.0 % Critically low 0.9-7.0 [facility] Comment on above: Performed By: #### B PEOPLE MANAGER #### [facility] [address] [place] [address] Dr. Carole Carvalho Erythrocyte distribution width (RBC) [Ratio] 14.6 % Normal 11.0-15.0 [facility] Comment on above: Performed By: #### B PEOPLE MANAGER #### [facility] [address] [place] [address] Dr. Carole Carvalho Hematocrit (Bld) [Volume fraction] 35.2 % Critically low 42.0-54.0 [facility] Comment on above: Performed By: #### B PEOPLE MANAGER #### [facility] [address] [place] [address] Dr. Carole Carvalho Hemoglobin (Bld) [Mass/Vol] 10.7 g/dL Critically low 14.0-18.0 [facility] Comment on above: Performed By: #### B PEOPLE MANAGER #### [facility] [address] [place] [address] Dr. Carole Carvalho IG # 0.02 10e3/ul Normal 0.00-0.03 [facility] Comment on above: Performed By: #### B PEOPLE MANAGER #### [facility] [address] [place] [address] Dr. Carole Carvalho IG % 0.3 % Normal 0.0-0.5 [facility] Comment on above: Performed By: #### B PEOPLE MANAGER #### [facility] [address] [place] [address] Dr. Carole Carvalho LYMPH # 0.4 103/ul Critically low 1.2-3.8 [facility] Comment on above: Performed By: #### B PEOPLE MANAGER #### [facility] [address] [place] [address] Dr. Carole Carvalho Lymphocytes/100 WBC (Bld) 5.5 % Critically low 20.5-60.0 [facility] Comment on above: Performed By: #### B PEOPLE MANAGER #### [facility] [address] [place] [address] Dr. Carole Carvalho MANUAL DIFF REQ NO Normal [facility] Comment on above: Performed By: #### B PEOPLE MANAGER #### [facility] [address] [place] [address] Dr. Carole Carvalho MCH (RBC) [Entitic mass] 30.2 pg Normal 25.9-34.0 [facility] Comment on above: Performed By: #### B PEOPLE MANAGER #### [facility] [address] [place] [address] Dr. Carole Carvalho MCHC (RBC) [Mass/Vol] 30.4 g/dL Normal 29.9-35.2 [facility] Comment on above: Performed By: #### B PEOPLE MANAGER #### [facility] [address] [place] [address] Dr. Carole Carvalho MCV (RBC) [Entitic vol] 99.4 fL Critically high 80.0-94 .0 [facility] Comment on above: Performed By: #### B PEOPLE MANAGER #### [facility] [address] [place] [address] Dr. Carole Carvalho MONO # 0.7 103/ul Normal 0.3-0.8 [facility] Comment on above: Performed By: #### B PEOPLE MANAGER #### [facility] [address] [place] [address] Dr. Carole Carvalho Monocytes/100 WBC (Bld) 8.4 % Normal 1.7-12.0 [facility] Comment on above: Performed By: #### B PEOPLE MANAGER #### [facility] [address] [place] [address] Dr. Carole Carvalho NEUT # 6.7 103/ul Critically high 1.4-6.5 [facility] Comment on above: Performed By: #### B PEOPLE MANAGER #### [facility] [address] [place] [address] Dr. Carole Carvalho Neutrophils/100 WBC (Bld) 85.5 % Critically high 43.0-75.0 [facility] Comment on above: Performed By: #### B PEOPLE MANAGER #### [facility] [address] [place] [address] Dr. Carole Carvalho Platelet mean volume (Bld) [Entitic vol] 11.7 fL Normal 9.5-13.5 [facility] Comment on above: Performed By: #### B PEOPLE MANAGER #### [facility] [address] [place] [address] Dr. Carole Carvalho PLT 137 103/ul Critically low 150-450 [facility] Comment on above: Performed By: #### B PEOPLE MANAGER #### [facility] [address] [place] [address] Dr. Carole Carvalho RBC 3.54 106/ul Critically low 4.70-6.10 [facility] Comment on above: Performed By: #### B PEOPLE MANAGER #### [facility] [address] [place] [address] Dr. Carole Carvalho WBC 7.9 103/ul Normal 4.0-11.0 [facility] Comment on above: Performed By: #### B PEOPLE MANAGER #### [facility] [address] [place] [address] Dr. Carole Carvalho CULTURE BLOODon 07-20-2021 Microscopic examination of blood, culture Culture Observations: Positive blood culture, both bottles. BCID=Staph. aureus. Sent to [facility]. Normal [facility] Comment on above: Performed By: #### L ACT #### [facility] [address] [place] [address] Dr. Carole Carvalho Microscopic examination of blood, culture Culture Observations: Positive blood culture, both bottles. BCID=Staph. aureus. Sent to [facility]. [facility] Comment on above: Performed By: #### L ACT #### [facility] [address] [place] [address] Dr. Carole Carvalho LACTATE/LACTIC ACIDon 2021 Lactate [Moles/Vol] 0.7 mmol/L Normal 0.4-1.9 [facility] Comment on above: Performed By: #### L ACT #### [facility] [address] [place] [address] Dr. Carole Carvalho Lactate [Moles/Vol] 0.6 mmol/L Normal 0.4-1.9 [facility] Comment on above: Performed By: #### C VDTBH #### [facility] [address] [place] [address] Dr. Carole Carvalho LIVER PROFILEon 07-20-2021 Albumin [Mass/Vol] 2.3 g/dL Critically low 3.4-5.0 Th e [facility] Comment on above: Performed By: #### M G #### [facility] [address] [place] [address] Dr. Carole Carvalho Albumin/Globulin [Mass ratio] 0.7 {ratio} Normal [facility] Comment on above: Performed By: #### M G #### [facility] [address] [place] [address] Dr. Carole Carvalho ALP [Catalytic activity/Vol] 87 U/L Normal 46-116 [facility] Comment on above: Performed By: #### M G #### [facility] [address] [address] [address] Carole Carvalho ALT [Catalytic activity/Vol] 28 U/L Normal 16-63 [facility] Comment on above: Performed By: #### M G #### [facility] [address] [address] [address] Carole Carvalho AST [Catalytic activity/Vol] 21 U/L Normal 15-37 [facility] Comment on above: Performed By: #### M G #### [facility] [address] [address] [address] Carole Carvalho BILI, CONJUGATED 0.2 mg/dL Normal 0.0-0.2 [facility] Comment on above: Performed By: #### M G #### [facility] [address] [address] [address] Carole Carvalho Bilirubin [Mass/Vol] 0.8 mg/dL Normal 0.2-1.0 [facility] Comment on above: Performed By: #### M G #### [facility] [address] [address] [address] Carole Carvalho Globulin (S) [Mass/Vol] 3.2 g/dL Normal [facility] Comment on above: Performed By: #### M G #### [facility] [address] [address] [address] Carole Carvalho Protein [Mass/Vol] 5.5 g/dL Critically low 6.4-8.2 Th [facility] Comment on above: Performed By: #### M G #### [facility] [address] [address] [address] Carole Carvalho MAGNESIUMon 07-20-2021 Magnesium [Mass/Vol] 1.7 mg/dL Critically low 1.8-2.4 [facility] Comment on above: Performed By: #### C VDTBH #### [facility] [address] [address] [address] Carole aCrvalho PROF CHEM 8 (BAS METB)on Anion gap [Moles/Vol] 5.5 mmol/L Normal [facility] Comment on above: Performed By: #### C VDTBH #### [facility] [address] [place] [address] Dr. Carole Carvalho Calcium [Mass/Vol] 7.7 mg/dL Critically low 8.5-10.1 Th e [facility] Comment on above: Performed By: #### C VDTBH #### [facility] [address] [place] [address] Dr. Carole Carvalho Chloride [Moles/Vol] 91 mmol/L Critically low 98-107 [facility] Comment on above: Performed By: #### C VDTBH #### [facility] [address] [place] [address] Dr. Carole Carvalho CO2 [Moles/Vol] 38.5 mmol/L Critically high 21.0-32.0 [facility] Comment on above: Performed By: #### C VDTBH #### [facility] [address] [place] [address] Dr. Carole Carvalho Creatinine [Mass/Vol] 0.67 mg/dL Critically low 0.70-1.30 [facility] Comment on above: Performed By: #### C VDTBH #### [facility] [address] [place] [address] Dr. Carole Carvalho EGFR-AF COLOMBIAN >60 Normal >=60 [facility] Comment on above: Performed By: #### C VDTBH #### [facility] [address] [place] [address] Dr. Carole Carvalho EGFR-NON AF COLOMBIAN >60 Normal >=60 [facility] Comment on above: Performed By: #### C VDTBH #### [facility] [address] [place] [address] Dr. Carole Carvalho Glucose [Mass/Vol] 97 mg/dL Normal 74-106 [facility] Comment on above: Performed By: #### C VDTBH #### [facility] [address] [place] [address] Dr. Carole Carvalho Potassium [Moles/Vol] 4.0 mmol/L Normal 3.5-5.1 [facility] Comment on above: Performed By: #### C VDTBH #### [facility] [address] [place] [address] Dr. Carole Carvalho Sodium [Moles/Vol] 131 mmol/L Critically low 136-145 Th [facility] Comment on above: Performed By: #### C VDTBH #### [facility] [address] [place] [address] Dr. Carole Carvalho Urea nitrogen [Mass/Vol] 13.0 mg/dL Normal 7.0-18.0 [facility] Comment on above: Performed By: #### C VDTBH #### [facility] [address] [place] [address] Dr. Carole Carvalho Urea nitrogen/Creatinine [Mass ratio] 19.4 mg/mg Normal [facility] Comment on above: Performed By: #### C VDTBH #### [facility] [address] [place] [address] Dr. Carole Carvalho UA (CLEAN/CATCH) SIGNAL APPRENTICE/MICRO I F IND.on 07-20-2021 Bilirubin Ql (U) Negative Normal NEGATIVE [facility] Comment on above: Performed By: #### L ACT #### [facility] [address] [place] [address] Dr. Carole Carvalho Clarity (U) CLEAR Normal CLEAR [facility] Comment on above: Performed By: #### L ACT #### [facility] [address] [place] [address] Dr. Carole Carvalho Color (U) YELLOW Normal YELLOW [facility] Comment on above: Performed By: #### L ACT #### [facility] [address] [place] [address] Dr. Carole Carvalho Glucose Ql (U) Negative Normal NEGATIVE [facility] Comment on above: Performed By: #### L ACT #### [facility] [address] [place] [address] Dr. Carole Carvalho Hemoglobin Ql (U) Negative Normal NEGATIVE [facility] Comment on above: Performed By: #### L ACT #### [facility] [address] [place] [address] Dr. Carole Carvalho Ketones Ql (U) Negative Normal NEGATIVE [facility] Comment on above: Performed By: #### L ACT #### [facility] [address] [place] [address] Dr. Carole Carvalho LEUKOCYTES Negative Normal NEGATIVE [facility] Comment on above: Performed By: #### L ACT #### [facility] [address] [place] [address] Dr. Carole Carvalho Nitrite Ql (U) Negative Normal NEGATIVE [facility] Comment on above: Performed By: #### L ACT #### [facility] [address] [place] [address] Dr. Carole Carvalho pH (U) 8.0 [pH] Normal 5-9 [facility] Comment on above: Performed By: #### L ACT #### [facility] [address] [place] [address] Dr. Carole Carvalho SPEC GRAVITY 1.015 Normal 1.005-<=1. 025 [facility] Comment on above: Performed By: #### L ACT #### [facility] [address] [place] [address] Dr. Carole Carvalho UA PROTEIN Negative Normal NEGATIVE/ TRACE [facility] Comment on above: Performed By: #### L ACT #### [facility] [address] [place] [address] Dr. Carole Carvalho UR MICRO IND NOT INDICATED Normal [facility] Comment on above: Performed By: #### L ACT #### [facility] [address] [place] [address] Dr. Carole Carvalho Urobilinogen Qn (U) 1.0 {Anjali'U}/dL Normal 0.2 - 1. 0 [facility] Comment on above: Performed By: #### L ACT #### [facility] [address] [place] [address] Dr. Carole Carvalho XR CHEST 2 Von [...] by: ANNA EUGENE Date: 2021-07-20 07:12 Normal [facility] CBC AUTO DIFFon 07-19-2021 BASO # 0.0 103/ul Normal 0.0-0.1 [facility] Comment on above: Performed By: #### C BC #### [facility] [address] [address] [address] Carole Carvalho Basophils/100 WBC (Bld) 0.2 % Normal 0.2-2.0 [facility] Comment on above: Performed By: #### C BC #### [facility] [address] [address] [address] Carole Carvalho EO # 0.0 103/ul Normal 0.0-0.7 [facility] Comment on above: Performed By: #### C BC #### [facility] [address] [address] [address] Carole Carvalho Eosinophils/100 WBC (Bld) 0.0 % Critically low 0.9-7.0 [facility] Comment on above: Performed By: #### C BC #### [facility] [address] [address] [address] Carole Carvalho Erythrocyte distribution width (RBC) [Ratio] 14.6 % Normal 11.0-15.0 [facility] Comment on above: Performed By: #### C BC #### [facility] [address] [address] [address] Carole Carvalho Hematocrit (Bld) [Volume fraction] 35.4 % Critically low 42.0-54.0 [facility] Comment on above: Performed By: #### C BC #### [facility] [address] [address] [address] Carole Carvalho Hemoglobin (Bld) [Mass/Vol] 10.9 g/dL Critically low 14.0-18.0 [facility] Comment on above: Performed By: #### C BC #### [facility] [address] [place] [address] Dr. Carole Carvalho IG # 0.03 10e3/ul Normal 0.00-0.03 [facility] Comment on above: Performed By: #### C BC #### [facility] [address] [place] [address] Dr. Carole Carvalho IG % 0.3 % Normal 0.0-0.5 [facility] Comment on above: Performed By: #### C BC #### [facility] [address] [place] [address] Dr. Carole Carvalho LYMPH # 0.3 103/ul Critically low 1.2-3.8 [facility] Comment on above: Performed By: #### C BC #### [facility] [address] [place] [address] Dr. Carole Carvalho Lymphocytes/100 WBC (Bld) 3.1 % Critically low 20.5-60.0 [facility] Comment on above: Performed By: #### C BC #### [facility] [address] [place] [address] Dr. Carole Carvalho MANUAL DIFF REQ NO Normal [facility] Comment on above: Performed By: #### C BC #### [facility] [address] [place] [address] Dr. Carole Carvalho MCH (RBC) [Entitic mass] 30.5 pg Normal 25.9-34.0 [facility] Comment on above: Performed By: #### C BC #### [facility] [address] [place] [address] Dr. Carole Carvalho MCHC (RBC) [Mass/Vol] 30.8 g/dL Normal 29.9-35.2 [facility] Comment on above: Performed By: #### C BC #### [facility] [address] [place] [address] Dr. Carole Carvalho MCV (RBC) [Entitic vol] 99.2 fL Critically high 80.0-94 .0 [facility] Comment on above: Performed By: #### C BC #### [facility] [address] [address] [address] Carole Carvalho MONO # 1.2 103/ul Critically high 0.3-0.8 [facility] Comment on above: Performed By: #### C BC #### [facility] [address] [address] [address] Carole Carvalho Monocytes/100 WBC (Bld) 10.8 % Normal 1.7-12.0 [facility] Comment on above: Performed By: #### C BC #### [facility] [address] [address] [address] Carole Carvalho NEUT # 9.2 103/ul Critically high 1.4-6.5 [facility] Comment on above: Performed By: #### C BC #### [facility] [address] [place] [address] Dr. Carole Carvalho Neutrophils/100 WBC (Bld) 85.6 % Critically high 43.0-75.0 [facility] Comment on above: Performed By: #### C BC #### [facility] [address] [address] [address] Carole Carvalho Platelet mean volume (Bld) [Entitic vol] 11.4 fL Normal 9.5-13.5 [facility] Comment on above: Performed By: #### C BC #### [facility] [address] [address] [address] Carole Carvalho PLT 157 103/ul Normal 150-450 [facility] Comment on above: Performed By: #### C BC #### [facility] [address] [address] [address] Carole Carvalho RBC 3.57 106/ul Critically low 4.70-6.10 [facility] Comment on above: Performed By: #### C BC #### [facility] [address] [address] [address] Carole Carvalho WBC 10.7 103/ul Normal 4.0-11.0 [facility] Comment on above: Performed By: #### C BC #### [facility] [address] [place] [address] Dr. Carole Carvalho IRON AND TIBCon 07-19-2021 % SATURATION 8.6 % Normal [facility] Comment on above: Performed By: #### F ETIBC, B12FOL #### [facility] [address] [place] [address] Dr. Carole Carvalho Iron [Mass/Vol] 35.0 ug/dL Critically low 65.0-175.0 [facility] Comment on above: Performed By: #### F ETIBC, B12FOL #### [facility] [address] [place] [address] Dr. Carole Carvalho TIBC DIRECT 407.0 ug/dL Normal 250.0-450. 0 [facility] Comment on above: Performed By: #### F ETIBC, B12FOL #### [facility] [address] [place] [address] Dr. Carole Carvalho MAGNESIUMon 07-19-2021 Magnesium [Mass/Vol] 1.7 mg/dL Critically low 1.8-2.4 [facility] Comment on above: Performed By: #### M G #### [facility] [address] [place] [address] Dr. Carole Carvalho PROF CHEM 8 (BAS METB)on Anion gap [Moles/Vol] 6.0 mmol/L Normal [facility] Comment on above: Performed By: #### M G #### [facility] [address] [place] [address] Dr. Carole Carvalho Calcium [Mass/Vol] 7.9 mg/dL Critically low 8.5-10.1 Th e [facility] Comment on above: Performed By: #### M G #### [facility] [address] [place] [address] Dr. Carole Carvalho Chloride [Moles/Vol] 92 mmol/L Critically low 98-107 [facility] Comment on above: Performed By: #### M G #### [facility] [address] [place] [address] Dr. Carole Carvalho CO2 [Moles/Vol] 39.5 mmol/L Critically high 21.0-32.0 [facility] Comment on above: Performed By: #### M G #### [facility] [address] [place] [address] Dr. Carole Carvalho Creatinine [Mass/Vol] 0.64 mg/dL Critically low 0.70-1.30 [facility] Comment on above: Performed By: #### M G #### [facility] [address] [place] [address] Dr. Carole Carvalho EGFR-AF COLOMBIAN >60 Normal >=60 [facility] Comment on above: Performed By: #### M G #### [facility] [address] [place] [address] Dr. Carole Carvalho EGFR-NON AF COLOMBIAN >60 Normal >=60 [facility] Comment on above: Performed By: #### M G #### [facility] [address] [place] [address] Dr. Carole Carvalho Glucose [Mass/Vol] 110 mg/dL Critically high 74-[address] [facility] Comment on above: Performed By: #### M G #### [facility] [address] [place] [address] Dr. Carole Carvalho Potassium [Moles/Vol] 3.5 mmol/L Normal 3.5-5.1 [facility] Comment on above: Performed By: #### M G #### [facility] [address] [place] [address] Dr. Carole Cravalho Sodium [Moles/Vol] 134 mmol/L Critically low 136-145 Th [facility] Comment on above: Performed By: #### M G #### [facility] [address] [place] [address] Dr. Carole Carvalho Urea nitrogen [Mass/Vol] 20.0 mg/dL Critically high 7.0-18 .0 [facility] Comment on above: Performed By: #### M G #### [facility] [address] [place] [address] Dr. Carole Carvalho Urea nitrogen/Creatinine [Mass ratio] 31.2 mg/mg Normal [facility] Comment on above: Performed By: #### M G #### [facility] [address] [place] [address] Dr. Carole Carvalho VIT B12 AND FOLATEon Cobalamin (Vitamin B12) [Mass/Vol] 481.0 pg/mL Normal 193.0-986. 0 [facility] Comment on above: Performed By: #### L ACT #### [facility] [address] [place] [address] Dr. Carole Carvalho FOLATE 7.70 ng/mL Critically low 8.60-58.90 [facility] Comment on above: Performed By: #### L ACT #### [facility] [address] [place] [address] Dr. Carole Carvalho CBC AUTO DIFFon 07-18-2021 BASO # 0.0 103/ul Normal 0.0-0.1 [facility] Comment on above: Performed By: #### L ACT #### [facility] [address] [place] [address] Dr. Carole Carvalho Basophils/100 WBC (Bld) 0.2 % Normal 0.2-2.0 [facility] Comment on above: Performed By: #### L ACT #### [facility] [address] [place] [address] Dr. Carole Carvalho EO # 0.0 103/ul Normal 0.0-0.7 [facility] Comment on above: Performed By: #### L ACT #### [facility] [address] [place] [address] Dr. Carole Carvalho Eosinophils/100 WBC (Bld) 0.0 % Critically low 0.9-7.0 [facility] Comment on above: Performed By: #### L ACT #### [facility] [address] [place] [address] Dr. Carole Carvalho Erythrocyte distribution width (RBC) [Ratio] 14.2 % Normal 11.0-15.0 [facility] Comment on above: Performed By: #### L ACT #### [facility] [address] [place] [address] Dr. Carole Carvalho Hematocrit (Bld) [Volume fraction] 38.1 % Critically low 42.0-54.0 [facility] Comment on above: Performed By: #### L ACT #### [facility] [address] [place] [address] Dr. Carole Carvalho Hemoglobin (Bld) [Mass/Vol] 11.4 g/dL Critically low 14.0-18.0 [facility] Comment on above: Performed By: #### L ACT #### [facility] [address] [place] [address] Dr. Carole Carvalho IG # 0.03 10e3/ul Normal 0.00-0.03 [facility] Comment on above: Performed By: #### L ACT #### [facility] [address] [place] [address] Dr. Carole Carvalho IG % 0.3 % Normal 0.0-0.5 [facility] Comment on above: Performed By: #### L ACT #### [facility] [address] [place] [address] Dr. Carole Carvalho LYMPH # 1.1 103/ul Critically low 1.2-3.8 [facility] Comment on above: Performed By: #### L ACT #### [facility] [address] [place] [address] Dr. Carole Carvalho Lymphocytes/100 WBC (Bld) 12.2 % Critically low 20.5-60.0 [facility] Comment on above: Performed By: #### L ACT #### [facility] [address] [place] [address] Dr. Carole Carvalho MANUAL DIFF REQ NO Normal [facility] Comment on above: Performed By: #### L ACT #### [facility] [address] [place] [address] Dr. Carole Carvalho MCH (RBC) [Entitic mass] 30.4 pg Normal 25.9-34.0 [facility] Comment on above: Performed By: #### L ACT #### [facility] [address] [place] [address] Dr. Carole Carvalho MCHC (RBC) [Mass/Vol] 29.9 g/dL Normal 29.9-35.2 [facility] Comment on above: Performed By: #### L ACT #### [facility] [address] [address] [address] Carole Carvalho MCV (RBC) [Entitic vol] 101.6 fL Critically high 80.0-94 .0 [facility] Comment on above: Performed By: #### L ACT #### [facility] [address] [address] [address] Carole Carvalho MONO # 1.1 103/ul Critically high 0.3-0.8 [facility] Comment on above: Performed By: #### L ACT #### [facility] [address] [address] [address] Carole Carvalho Monocytes/100 WBC (Bld) 12.7 % Critically high 1.7-12. 0 [facility] Comment on above: Performed By: #### L ACT #### [facility] [address] [address] [address] Carole Carvalho NEUT # 6.6 103/ul Critically high 1.4-6.5 [facility] Comment on above: Performed By: #### L ACT #### [facility] [address] [place] [address] Dr. Carole Carvalho Neutrophils/100 WBC (Bld) 74.6 % Normal 43.0-75.0 [facility] Comment on above: Performed By: #### L ACT #### [facility] [address] [address] [address] Carole Carvalho Platelet mean volume (Bld) [Entitic vol] 11.1 fL Normal 9.5-13.5 [facility] Comment on above: Performed By: #### L ACT #### [facility] [address] [address] [address] Carole Carvalho PLT 175 103/ul Normal 150-450 [facility] Comment on above: Performed By: #### L ACT #### [facility] [address] [address] [address] Carole Carvalho RBC 3.75 106/ul Critically low 4.70-6.10 [facility] Comment on above: Performed By: #### L ACT #### [facility] [address] [address] [address] Carole Carvalho WBC 8.9 103/ul Normal 4.0-11.0 [facility] Comment on above: Performed By: #### L ACT #### [facility] [address] [address] [address] Carole Carvalho LIPID PROFILEon 07-18-2021 CHOL-HDL RATIO NORM SEE BELOW Normal [facility] Comment on above: Result Comment: 3.3 - 4.4 LOW RISK 4.4 - 7.1 AVERAGE RISK 7.1 - 11.0 MODERATE RISK >11.0 HIGH RISK Performed By: #### M G, BMP #### [facility] [address] [place] [address] Dr. Carole Carvalho Cholesterol [Mass/Vol] 111 mg/dL Normal <=200 Th [facility] Comment on above: Performed By: #### Holly G, BMP #### [facility] [address] [place] [address] Dr. Carole Carvalho Cholesterol in HDL [Mass/Vol] 37 mg/dL Critically low 40-60 [facility] Comment on above: Performed By: #### Holly Gómez, BMP #### [facility] [address] [place] [address] Dr. Carole Carvalho Cholesterol in LDL [Mass/Vol] 63.0 mg/dL Normal [facility] Comment on above: Performed By: #### Holly Gómez, BMP #### [facility] [address] [address] [address] Carole Carvalho Cholesterol.total/Choles terol in HDL [Mass ratio] 3.0 {ratio} Normal [facility] Comment on above: Performed By: #### Holly G, BMP #### [facility] [address] [place] [address] Dr. Carole Carvalho HDL NORMAL > or = 60 mg/dl - LO W CARDIOVASCULAR RISK <40 mg/dl - HIGH CARDIOVASCULAR RISK Normal [facility] Comment on above: Performed By: #### Holly G, BMP #### [facility] [address] [place] [address] Dr. Carole Carvalho LDL CALC NORMAL SEE BELOW Normal [facility] Comment on above: Result Comment: <100 mg/dl OPTIMAL 100 - 129 mg/dl NEAR OR ABOVE OPTIMAL 130 - 159 mg/dl BORDERLINE HIGH 160 - 189 mg/dl HIGH >190 mg/dl VERY HIGH Performed By: #### M G, BMP #### [facility] [address] [place] [address] Dr. Carole Carvalho Triglyceride [Mass/Vol] 55 mg/dL Normal <=[address] [facility] Comment on above: Performed By: #### M G, BMP #### [facility] [address] [address] [address] Carole Carvalho VLDL CALC 11.0 mg/dL Normal [facility] Comment on above: Performed By: #### M G, BMP #### [facility] [address] [place] [address] Dr. Carole Carvalho MAGNESIUMon 07-18-2021 Magnesium [Mass/Vol] 2.1 mg/dL Normal 1.8-2.4 [facility] Comment on above: Performed By: #### Holly G, BMP #### [facility] [address] [place] [address] Dr. Carole Carvalho PROF CHEM 8 (BAS METB)on Anion gap [Moles/Vol] 2.6 mmol/L Normal [facility] Comment on above: Performed By: #### Holly G, BMP #### [facility] [address] [place] [address] Dr. Carole Carvalho Calcium [Mass/Vol] 7.8 mg/dL Critically low 8.5-10.1 [facility] Comment on above: Performed By: #### M G, BMP #### [facility] [address] [place] [address] Dr. Carole Carvalho Chloride [Moles/Vol] 93 mmol/L Critically low 98-107 [facility] Comment on above: Performed By: #### Holly G, BMP #### [facility] [address] [address] [address] Carole Carvalho CO2 [Moles/Vol] 46.0 mmol/L Critically high 21.0-32.0 [facility] Comment on above: Performed By: #### M G, BMP #### [facility] [address] [place] [address] Dr. Carole Carvalho Creatinine [Mass/Vol] 0.65 mg/dL Critically low 0.70-1.30 [facility] Comment on above: Performed By: #### M G, BMP #### [facility] [address] [address] [address] Carole Carvalho EGFR-AF COLOMBIAN >60 Normal >=60 [facility] Comment on above: Performed By: #### M G, BMP #### [facility] [address] [place] [address] Dr. Carole Carvalho EGFR-NON AF COLOMBIAN >60 Normal >=60 [facility] Comment on above: Performed By: #### M G, BMP #### [facility] [address] [place] [address] Dr. Carole Carvalho Glucose [Mass/Vol] 92 mg/dL Normal 74-106 [facility] Comment on above: Performed By: #### M G, BMP #### [facility] [address] [place] [address] Dr. Carole Carvalho Potassium [Moles/Vol] 3.6 mmol/L Normal 3.5-5.1 [facility] Comment on above: Performed By: #### M G, BMP #### [facility] [address] [place] [address] Dr. Carole Carvalho Sodium [Moles/Vol] 138 mmol/L Normal 136-145 [facility] Comment on above: Performed By: #### M G, BMP #### [facility] [address] [place] [address] Dr. Carole Carvalho Urea nitrogen [Mass/Vol] 21.0 mg/dL Critically high 7.0-18 .0 [facility] Comment on above: Performed By: #### M G, BMP #### [facility] [address] [place] [address] Dr. Carole Carvalho Urea nitrogen/Creatinine [Mass ratio] 32.3 mg/mg Normal [facility] Comment on above: Performed By: #### M G, BMP #### [facility] [address] [place] [address] Dr. Carole Carvalho BLOOD GASES BTYon 07-17-2021 02 MODE BIPAP Normal [facility] Comment on above: Performed By: #### M G, BMP #### [facility] [address] [place] [address] Dr. Carole Carvalho ALLENS TEST Positive Normal [facility] Comment on above: Performed By: #### M G, BMP #### [facility] [address] [place] [address] Dr. Carole Carvalho Base excess Calc (Bld) [Moles/Vol] 22.4 mmol/L Critically high -2.0-2.0 [facility] Comment on above: Performed By: #### M G, BMP #### [facility] [address] [place] [address] Dr. Carole Carvalho BIPAP PRESSURE 18/8 Normal [facility] Comment on above: Performed By: #### M G, BMP #### [facility] [address] [place] [address] Dr. Carole Carvalho CO2 [Moles/Vol] 95.2 mmol/L Critically high 23.0-28.0 [facility] Comment on above: Performed By: #### M G, BMP #### [facility] [address] [place] [address] Dr. Carole Carvalho CPAP Normal [facility] Comment on above: Performed By: #### M G, BMP #### [facility] [address] [place] [address] Dr. Carole Carvalho FIO2 40.00 % Normal [facility] Comment on above: Performed By: #### M G, BMP #### [facility] [address] [place] [address] Dr. Carole Carvalho HCO3 (Bld) [Moles/Vol] 42.7 mmol/L Critically high 22.0-26 .0 [facility] Comment on above: Performed By: #### M G, BMP #### [facility] [address] [place] [address] Dr. Carole Carvalho M [facility] Comment on above: Performed By: #### M G, BMP #### [facility] [address] [address] [address] Carole Carvalho MINUTE VOLUME Normal [facility] Comment on above: Performed By: #### M G, BMP #### [facility] [address] [place] [address] Dr. Carole Carvalho Oxygen (Bld) [Partial pressure] 106.0 mm[Hg] Critically high 80.0-100.0 [facility] Comment on above: Performed By: #### M G, BMP #### [facility] [address] [place] [address] Dr. Carole Carvalho Oxygen saturation in Blood 98.9 % Normal 95.0-100.0 [facility] Comment on above: Performed By: #### M G, BMP #### [facility] [address] [place] [address] Dr. Carole Carvalho PCO2 74.9 mmHg Critically high 35.0-45.0 [facility] Comment on above: Performed By: #### M G, BMP #### [facility] [address] [place] [address] Dr. Carole Carvalho [facility] Comment on above: Performed By: #### M G, BMP #### [facility] [address] [place] [address] Dr. Carole Carvalho pH (Bld) 7.406 [pH] Normal 7.350-7.45 0 [facility] Comment on above: Performed By: #### M G, BMP #### [facility] [address] [place] [address] Dr. Carole Carvalho [facility] Comment on above: Performed By: #### M G, BMP #### [facility] [address] [place] [address] Dr. Carole Carvalho [facility] Comment on above: Performed By: #### M G, BMP #### [facility] [address] [place] [address] Dr. Carole Carvalho PUNCTURE SITE RR Normal [facility] Comment on above: Performed By: #### M G, BMP #### [facility] [address] [place] [address] Dr. Carole Carvalho RATE Normal [facility] Comment on above: Performed By: #### M G, BMP #### [facility] [address] [address] [address] Carole Carvalho VENT MODE [facility] Comment on above: Performed By: #### M G, BMP #### [facility] [address] [address] [address] Carole Carvalho [place] [facility] Comment on above: Performed By: #### M G, BMP #### [facility] [address] [place] [address] Dr. Carole Carvalho 02 MODE BIPAP [facility] Comment on above: Performed By: #### M G, BMP #### [facility] [address] [place] [address] Dr. Carole GASPARS TEST Positive [facility] Comment on above: Performed By: #### M G, BMP #### [facility] [address] [place] [address] Dr. Carole Carvalho Base excess Calc (Bld) [Moles/Vol] 18.2 mmol/L Critically high -2.0-2.0 [facility] Comment on above: Performed By: #### M G, BMP #### [facility] [address] [place] [address] Dr. Carole Carvalho BIPAP PRESSURE [facility] Comment on above: Performed By: #### M G, BMP #### [facility] [address] [address] [address] Carole Carvalho CO2 [Moles/Vol] 91.2 mmol/L Critically high 23.0-28.0 [facility] Comment on above: Performed By: #### M G, BMP #### [facility] [address] [address] [address] Carole Carvalho CPAP [facility] Comment on above: Performed By: #### M G, BMP #### [facility] [address] [place] [address] Dr. Carole Carvalho FIO2 30.00 % Normal [facility] Comment on above: Performed By: #### M G, BMP #### [facility] [address] [place] [address] Dr. Carole Carvalho HCO3 (Bld) [Moles/Vol] 38.2 mmol/L Critically high 22.0-26 .0 [facility] Comment on above: Performed By: #### M G, BMP #### [facility] [address] [place] [address] Dr. Carole Carvalho LPM [facility] Comment on above: Performed By: #### M G, BMP #### [facility] [address] [place] [address] Dr. Carole Carvalho MINUTE VOLUME Normal [facility] Comment on above: Performed By: #### M G, BMP #### [facility] [address] [place] [address] Dr. Carole Carvalho Oxygen (Bld) [Partial pressure] 58.3 mm[Hg] Critically low 80.0-100.0 [facility] Comment on above: Performed By: #### M G, BMP #### [facility] [address] [place] [address] Dr. Carole Carvalho Oxygen saturation in Blood 89.7 % Critically low 95.0-100.0 [facility] Comment on above: Performed By: #### M G, BMP #### [facility] [address] [place] [address] Dr. Carole Carvalho PCO2 84.0 mmHg Critically high 35.0-45.0 [facility] Comment on above: Performed By: #### M G, BMP #### [facility] [address] [place] [address] Dr. Carole Carvalho PEEP [facility] Comment on above: Performed By: #### M G, BMP #### [facility] [address] [place] [address] Dr. Carole Carvalho pH (Bld) 7.329 [pH] Critically low 7.350-7.45 0 [facility] Comment on above: Performed By: #### M G, BMP #### [facility] [address] [place] [address] Dr. Carole Carvalho PIP [facility] Comment on above: Performed By: #### M G, BMP #### [facility] [address] [place] [address] Dr. Carole Caravlho PS [facility] Comment on above: Performed By: #### M G, BMP #### [facility] [address] [address] [address] Carole Carvalho PUNCTURE SITE LR [facility] Comment on above: Performed By: #### M G, BMP #### [facility] [address] [place] [address] Dr. Carole Carvalho RATE [facility] Comment on above: Performed By: #### M G, BMP #### [facility] [address] [place] [address] Dr. Carole Carvalho VENT MODE [facility] Comment on above: Performed By: #### M G, BMP #### [facility] [address] [place] [address] Dr. Carole Carvalho [facility] Comment on above: Performed By: #### M G, BMP #### [facility] [address] [place] [address] Dr. Carole Carvalho 02 MODE VENTURI MASK [facility] Comment on above: Performed By: #### M G, BMP #### [facility] [address] [place] [address] Dr. Carole MATA TEST Positive [facility] Comment on above: Performed By: #### M G, BMP #### [facility] [address] [place] [address] Dr. Carole Carvalho Base excess Calc (Bld) [Moles/Vol] 16.9 mmol/L Critically high -2.0-2.0 [facility] Comment on above: Performed By: #### M G, BMP #### [facility] [address] [place] [address] Dr. Carole Carvalho BIPAP PRESSURE Normal [facility] Comment on above: Performed By: #### M G, BMP #### [facility] [address] [place] [address] Dr. Carole Carvalho CO2 [Moles/Vol] 89.8 mmol/L Critically high 23.0-28.0 [facility] Comment on above: Performed By: #### M G, BMP #### [facility] [address] [place] [address] Dr. Carole Carvalho CPAP [facility] Comment on above: Performed By: #### M G, BMP #### [facility] [address] [place] [address] Dr. Carole Carvalho FIO2 45.00 % [facility] Comment on above: Performed By: #### M G, BMP #### [facility] [address] [place] [address] Dr. Carole Carvalho HCO3 (Bld) [Moles/Vol] 36.9 mmol/L Critically high 22.0-26 .0 [facility] Comment on above: Performed By: #### M G, BMP #### [facility] [address] [place] [address] Dr. Carole Carvalho LPM 12 [facility] Comment on above: Performed By: #### M G, BMP #### [facility] [address] [place] [address] Dr. Carole Carvalho MINUTE VOLUME Normal [facility] Comment on above: Performed By: #### M G, BMP #### [facility] [address] [place] [address] Dr. Carole Carvalho Oxygen (Bld) [Partial pressure] 81.4 mm[Hg] Normal 80.0-100.0 [facility] Comment on above: Performed By: #### M G, BMP #### [facility] [address] [place] [address] Dr. Carole Carvalho Oxygen saturation in Blood 95.8 % Normal 95.0-100.0 [facility] Comment on above: Performed By: #### M G, BMP #### [facility] [address] [place] [address] Dr. Carole Carvalho PCO2 88.1 mmHg Critically high 35.0-45.0 [facility] Comment on above: Performed By: #### M G, BMP #### [facility] [address] [place] [address] Dr. Carole Carvalho PEEP [facility] Comment on above: Performed By: #### M G, BMP #### [facility] [address] [place] [address] Dr. Carole Carvalho pH (Bld) 7.300 [pH] Critically low 7.350-7.45 0 [facility] Comment on above: Performed By: #### M G, BMP #### [facility] [address] [place] [address] Dr. Carole Carvalho [facility] Comment on above: Performed By: #### M G, BMP #### [facility] [address] [place] [address] Dr. Carole Carvalho [facility] Comment on above: Performed By: #### M G, BMP #### [facility] [address] [place] [address] Dr. Carole Carvalho PUNCTURE SITE LR [facility] Comment on above: Performed By: #### M G, BMP #### [facility] [address] [place] [address] Dr. Carole Carvalho RATE [facility] Comment on above: Performed By: #### M G, BMP #### [facility] [address] [place] [address] Dr. Carole Carvalho VENT MODE [facility] Comment on above: Performed By: #### M G, BMP #### [facility] [address] [place] [address] Dr. Carole Carvalho [facility] Comment on above: Performed By: #### M G, BMP #### [facility] [address] [place] [address] Dr. Carole Carvalho BNPon 05-20-2022 Natriuretic peptide B (Bld) [Mass/Vol] 2579.0 pg/mL Critically high <=900.0 [facility] Comment on above: Result Comment: repe ated Performed By: #### B PEOPLE MANAGER #### [facility] [address] [place] [address] Dr. Carole Carvalho CBC AUTO DIFFon 07-17-2021 BASO # 0.0 103/ul Normal 0.0-0.1 [facility] Comment on above: Performed By: #### L ACT #### [facility] [address] [place] [address] Dr. Carole Carvalho Basophils/100 WBC (Bld) 0.3 % Normal 0.2-2.0 [facility] Comment on above: Performed By: #### L ACT #### [facility] [address] [place] [address] Dr. Carole Carvalho EO # 0.0 103/ul Normal 0.0-0.7 [facility] Comment on above: Performed By: #### L ACT #### [facility] [address] [place] [address] Dr. Carole Carvalho Eosinophils/100 WBC (Bld) 0.1 % Critically low 0.9-7.0 [facility] Comment on above: Performed By: #### L ACT #### [facility] [address] [place] [address] Dr. Carole Carvalho Erythrocyte distribution width (RBC) [Ratio] 14.2 % Normal 11.0-15.0 [facility] Comment on above: Performed By: #### L ACT #### [facility] [address] [place] [address] Dr. Carole Carvalho Hematocrit (Bld) [Volume fraction] 38.0 % Critically low 42.0-54.0 [facility] Comment on above: Performed By: #### L ACT #### [facility] [address] [place] [address] Dr. Carole Carvalho Hemoglobin (Bld) [Mass/Vol] 11.4 g/dL Critically low 14.0-18.0 [facility] Comment on above: Performed By: #### L ACT #### [facility] [address] [address] [address] Carole Carvalho IG # 0.04 10e3/ul Critically high 0.00-0.03 [facility] Comment on above: Performed By: #### L ACT #### [facility] [address] [address] [address] Carole Carvalho IG % 0.4 % Normal 0.0-0.5 [facility] Comment on above: Performed By: #### L ACT #### [facility] [address] [place] [address] Dr. Carole Carvalho LYMPH # 1.4 103/ul Normal 1.2-3.8 [facility] Comment on above: Performed By: #### L ACT #### [facility] [address] [place] [address] Dr. Carole Carvalho Lymphocytes/100 WBC (Bld) 14.5 % Critically low 20.5-60.0 [facility] Comment on above: Performed By: #### L ACT #### [facility] [address] [place] [address] Dr. Carole Carvalho MANUAL DIFF REQ NO Normal [facility] Comment on above: Performed By: #### L ACT #### [facility] [address] [place] [address] Dr. Carole Carvalho MCH (RBC) [Entitic mass] 31.1 pg Normal 25.9-34.0 [facility] Comment on above: Performed By: #### L ACT #### [facility] [address] [place] [address] Dr. Carole Carvalho MCHC (RBC) [Mass/Vol] 30.0 g/dL Normal 29.9-35.2 [facility] Comment on above: Performed By: #### L ACT #### [facility] [address] [place] [address] Dr. Carole Carvalho MCV (RBC) [Entitic vol] 103.5 fL Critically high 80.0-94 .0 [facility] Comment on above: Performed By: #### L ACT #### [facility] [address] [place], [place] [id number] Dr. Carole Carvalho MONO # 1.3 103/ul Critically high 0.3-0.8 [facility] Comment on above: Performed By: #### L ACT #### [facility] [address] [place] [address] Dr. Carole Carvalho Monocytes/100 WBC (Bld) 13.4 % Critically high 1.7-12. 0 [facility] Comment on above: Performed By: #### L ACT #### [facility] [address] [place] [address] Dr. Carole Carvalho NEUT # 7.0 103/ul Critically high 1.4-6.5 [facility] Comment on above: Performed By: #### L ACT #### [facility] [address] [place] [address] Dr. Carole Carvalho Neutrophils/100 WBC (Bld) 71.3 % Normal 43.0-75.0 [facility] Comment on above: Performed By: #### L ACT #### [facility] [address] [place] [address] Dr. Carole Carvalho Platelet mean volume (Bld) [Entitic vol] 11.3 fL Normal 9.5-13.5 [facility] Comment on above: Performed By: #### L ACT #### [facility] [address] [place] [address] Dr. Carole Carvalho PLT 169 103/ul Normal 150-450 [facility] Comment on above: Performed By: #### L ACT #### [facility] [address] [place] [address] Dr. Carole Carvalho RBC 3.67 106/ul Critically low 4.70-6.10 [facility] Comment on above: Performed By: #### L ACT #### [facility] [address] [place] [address] Dr. Carole Carvalho WBC 9.9 103/ul Normal 4.0-11.0 [facility] Comment on above: Performed By: #### L ACT #### [facility] [address] [place] [address] Dr. Carole Carvalho CTA CHEST WO W [...] by: KATE BUSH Date: 2021-07-17 08:34 Normal [facility] ECHOCARDIO M/2D COMPLETEon 0 07-17-2021 ECHOCARDIO M/2D COMPLETE Patient: JAIME BLACK Exam Date: 07/17/2021 : 1955 Gender:M Ordering : SHAIKH Nelia ALLEN . Admission #: [id number] Family : Order #: [id number] CLICK HERE TO VIEW EXAM ECHOCARDIOGRAM REPORT [...] Gradient: 3 mm[Hg] Right Atrium Dictated by: Elaina Sheridan M.D. on 07/17/2021 at 13:26 Approved by: Elaina Sheridan M.D. on 07/17/2021 at 13:29 Normal [facility] MAGNESIUMon 07-17-2021 Magnesium [Mass/Vol] 2.3 mg/dL Normal 1.8-2.4 [facility] Comment on above: Performed By: #### M G, BMP #### [facility] [address] [place] [address] Dr. Carole Carvalho PROF CHEM 8 (BAS METB)on Anion gap [Moles/Vol] 3.5 mmol/L Normal [facility] Comment on above: Performed By: #### M G, BMP #### [facility] [address] [place] [address] Dr. Carole Carvalho Calcium [Mass/Vol] 7.7 mg/dL Critically low 8.5-10.1 [facility] Comment on above: Performed By: #### M G, BMP #### [facility] [address] [place] [address] Dr. Carole Carvalho Chloride [Moles/Vol] 96 mmol/L Critically low 98-107 [facility] Comment on above: Performed By: #### Holly G, BMP #### [facility] [address] [place] [address] Dr. Carole Carvalho CO2 [Moles/Vol] 43.4 mmol/L Critically high 21.0-32.0 [facility] Comment on above: Performed By: #### Holly G, BMP #### [facility] [address] [place] [address] Dr. Carole Carvalho Creatinine [Mass/Vol] 0.76 mg/dL Normal 0.70-1.30 [facility] Comment on above: Performed By: #### M G, BMP #### [facility] [address] [place] [address] Dr. Carole Carvalho EGFR-AF COLOMBIAN >60 Normal >=60 [facility] Comment on above: Performed By: #### M G, BMP #### [facility] [address] [place] [address] Dr. Carole Carvalho EGFR-NON AF COLOMBIAN >60 Normal >=60 [facility] Comment on above: Performed By: #### M G, BMP #### [facility] [address] [address] [address] Carole Carvalho Glucose [Mass/Vol] 85 mg/dL Normal 74-106 [facility] Comment on above: Performed By: #### M G, BMP #### [facility] [address] [address] [address] Carole Carvalho Potassium [Moles/Vol] 4.9 mmol/L Normal 3.5-5.1 [facility] Comment on above: Performed By: #### M G, BMP #### [facility] [address] [address] [address] Carole Carvalho Sodium [Moles/Vol] 138 mmol/L Normal 136-145 [facility] Comment on above: Performed By: #### M G, BMP #### [facility] [address] [address] [address] Carole Carvalho Urea nitrogen [Mass/Vol] 27.0 mg/dL Critically high 7.0-18 .0 [facility] Comment on above: Performed By: #### M G, BMP #### [facility] [address] [address] [address] Carole Carvalho Urea nitrogen/Creatinine [Mass ratio] 35.5 mg/mg Normal [facility] Comment on above: Performed By: #### M G, BMP #### [facility] [address] [address] [address] Carole Carvalho TROPONIN, HIGH SENSITIVITYon 07-17-2021 HSTROP 23.9 pg/mL Normal 4.0-76.1 [facility] Comment on above: Result Comment: CUT- OFF POINTS HAVE BEEN ESTABLISHED BASED ON THE FOURTH UNIVERSAL DEFINITIONS OF MYOCARDIAL INFARCTION. THE UPPER REFERENCE LIMIT (URL) OF TROPONIN, DEFINED THE 99TH PERCENTILE OF cTnI DISTRIBUTION IN A REFERENCE POPULATION, HAS BEEN CONFIRMED THE DECISION THRESHOLD FOR SD DIAGNOSIS. Performed By: #### M G, BMP #### [facility] [address] [address] [address] Carole Carvalho BNPon 07-16-2021 Natriuretic peptide B (Bld) [Mass/Vol] 6272.0 pg/mL Critically high <=900.0 [facility] Comment on above: Result Comment: test repeated critical value verified Performed By: #### B PEOPLE MANAGER #### [facility] [address] [place] [address] Dr. Carole Carvalho CBC AUTO DIFFon 07-16-2021 BASO # 0.0 103/ul Normal 0.0-0.1 [facility] Comment on above: Performed By: #### C BC #### [facility] [address] [place] [address] Dr. Carole Carvalho Basophils/100 WBC (Bld) 0.2 % Normal 0.2-2.0 [facility] Comment on above: Performed By: #### C BC #### [facility] [address] [place] [address] Dr. Carole Carvalho EO # 0.0 103/ul Normal 0.0-0.7 [facility] Comment on above: Performed By: #### C BC #### [facility] [address] [place] [address] Dr. Carole Carvalho Eosinophils/100 WBC (Bld) 0.0 % Critically low 0.9-7.0 [facility] Comment on above: Performed By: #### C BC #### [facility] [address] [place] [address] Dr. Carole Carvalho Erythrocyte distribution width (RBC) [Ratio] 14.2 % Normal 11.0-15.0 [facility] Comment on above: Performed By: #### C BC #### [facility] [address] [place] [address] Dr. Carole Carvalho Hematocrit (Bld) [Volume fraction] 43.5 % Normal 42.0-54.0 [facility] Comment on above: Performed By: #### C BC #### [facility] [address] [place] [address] Dr. Carole Carvalho Hemoglobin (Bld) [Mass/Vol] 13.5 g/dL Critically low 14.0-18.0 [facility] Comment on above: Performed By: #### C BC #### [facility] [address] [place] [address] Dr. Carole Carvalho IG # 0.04 10e3/ul Critically high 0.00-0.03 [facility] Comment on above: Performed By: #### C BC #### [facility] [address] [place] [address] Dr. Carole Carvalho IG % 0.4 % Normal 0.0-0.5 [facility] Comment on above: Performed By: #### C BC #### [facility] [address] [place] [address] Dr. Carole Carvalho LYMPH # 1.1 103/ul Critically low 1.2-3.8 [facility] Comment on above: Performed By: #### C BC #### [facility] [address] [place] [address] Dr. Carole Carvalho Lymphocytes/100 WBC (Bld) 11.0 % Critically low 20.5-60.0 [facility] Comment on above: Performed By: #### C BC #### [facility] [address] [place] [address] Dr. Carole Carvalho MANUAL DIFF REQ NO Normal [facility] Comment on above: Performed By: #### C BC #### [facility] [address] [place] [address] Dr. Carole Carvalho MCH (RBC) [Entitic mass] 31.5 pg Normal 25.9-34.0 [facility] Comment on above: Performed By: #### C BC #### [facility] [address] [place] [address] Dr. Carole Carvalho MCHC (RBC) [Mass/Vol] 31.0 g/dL Normal 29.9-35.2 [facility] Comment on above: Performed By: #### C BC #### [facility] [address] [place] [address] Dr. Carole Carvalho MCV (RBC) [Entitic vol] 101.4 fL Critically high 80.0-94 .0 [facility] Comment on above: Performed By: #### C BC #### [facility] [address] [place] [address] Dr. Carole Carvalho MONO # 1.2 103/ul Critically high 0.3-0.8 [facility] Comment on above: Performed By: #### C BC #### [facility] [address] [place] [address] Dr. Carole Carvalho Monocytes/100 WBC (Bld) 11.6 % Normal 1.7-12.0 [facility] Comment on above: Performed By: #### C BC #### [facility] [address] [place] [address] Dr. Carole Carvalho NEUT # 8.0 103/ul Critically high 1.4-6.5 [facility] Comment on above: Performed By: #### C BC #### [facility] [address] [place] [address] Dr. Carole Carvalho Neutrophils/100 WBC (Bld) 76.8 % Critically high 43.0-75.0 [facility] Comment on above: Performed By: #### C BC #### [facility] [address] [place] [address] Dr. Carole Carvalho Platelet mean volume (Bld) [Entitic vol] 11.5 fL Normal 9.5-13.5 [facility] Comment on above: Performed By: #### C BC #### [facility] [address] [place] [address] Dr. Carole Carvalho PLT 221 103/ul Normal 150-450 [facility] Comment on above: Performed By: #### C BC #### [facility] [address] [place] [address] Dr. Carole Carvalho RBC 4.29 106/ul Critically low 4.70-6.10 [facility] Comment on above: Performed By: #### C BC #### [facility] [address] [place] [address] Dr. Carole Carvalho WBC 10.4 103/ul Normal 4.0-11.0 [facility] Comment on above: Performed By: #### C BC #### [facility] [address] [place] [address] Dr. Carole Carvalho Covid-19 PCR (CVDTB)on 06-28 SARS-CoV-2 (COVID-19) RNA [place]+probe Ql (Unsp spec) Not detected Normal NOT DETECTED [facility] Comment on above: Result Comment: When diagnostic testing is negative, the possibility of a false negative should be considered in the context of a patient's recent exposures and the presence of clinical signs and symptoms consistent with SARS-CoV-2. This test is not yet approved or cleared by the [place] Food and Drug Administration (FDA). This test was developed by [employer], [place], [place]. The performance characteristics of this test were validated by [facility]. The results are not intended to be used as the sole means for clinical diagnosis or patient management decisions. [facility] is authorized under Clinical Laboratory [...] for this test is supported by the [place] Worker of Health and Human Service's declaration that [...] longer be used). Performed By: #### [facility] #### [facility] [address] [place] [address] Dr. Carole Carvalho MAGNESIUMon 07-16-2021 Magnesium [Mass/Vol] 2.4 mg/dL Normal 1.8-2.4 [facility] Comment on above: Performed By: #### M G #### [facility] [address] [place] [address] Dr. Carole Carvalho Magnesium [Mass/Vol] 2.4 mg/dL Normal 1.8-2.4 [facility] Comment on above: Performed By: #### B PEOPLE MANAGER #### [facility] [address] [place] [address] Dr. Carole Carvalho PROF 14(COMP METB)on 022 Albumin [Mass/Vol] 3.0 g/dL Critically low 3.4-5.0 [facility] Comment on above: Performed By: #### B PEOPLE MANAGER #### [facility] [address] [place] [address] Dr. Carole Carvalho Albumin/Globulin [Mass ratio] 0.8 {ratio} Normal [facility] Comment on above: Performed By: #### B PEOPLE MANAGER #### [facility] [address] [place] [address] Dr. Carole Carvalho ALP [Catalytic activity/Vol] 141 U/L Critically high 46-116 [facility] Comment on above: Performed By: #### B PEOPLE MANAGER #### [facility] [address] [place] [address] Dr. Carole Carvalho ALT [Catalytic activity/Vol] 54 U/L Normal 16-63 [facility] Comment on above: Performed By: #### B PEOPLE MANAGER #### [facility] [address] [place] [address] Dr. Carole Carvalho Anion gap [Moles/Vol] 4.7 mmol/L Normal [facility] Comment on above: Performed By: #### B PEOPLE MANAGER #### [facility] [address] [place] [address] Dr. Carole Carvalho AST [Catalytic activity/Vol] 29 U/L Normal 15-37 [facility] Comment on above: Performed By: #### B PEOPLE MANAGER #### [facility] [address] [place] [address] Dr. Carole Carvalho Bilirubin [Mass/Vol] 0.7 mg/dL Normal 0.2-1.0 [facility] Comment on above: Performed By: #### B PEOPLE MANAGER #### [facility] [address] [place] [address] Dr. Carole Carvalho Calcium [Mass/Vol] 7.9 mg/dL Critically low 8.5-10.1 Th [facility] Comment on above: Performed By: #### B PEOPLE MANAGER #### [facility] [address] [place] [address] Dr. Carole Carvalho Chloride [Moles/Vol] 96 mmol/L Critically low 98-107 [facility] Comment on above: Performed By: #### B PEOPLE MANAGER #### [facility] [address] [place] [address] Dr. Carole Carvalho CO2 [Moles/Vol] 37.4 mmol/L Critically high 21.0-32.0 [facility] Comment on above: Performed By: #### B PEOPLE MANAGER #### [facility] [address] [place] [address] Dr. Carole Carvalho Creatinine [Mass/Vol] 0.81 mg/dL Normal 0.70-1.30 [facility] Comment on above: Performed By: #### B PEOPLE MANAGER #### [facility] [address] [place] [address] Dr. Carole Carvalho EGFR-AF COLOMBIAN >60 Normal >=60 [facility] Comment on above: Performed By: #### B PEOPLE MANAGER #### [facility] [address] [place] [address] Dr. Carole Carvalho EGFR-NON AF COLOMBIAN >60 Normal >=60 [facility] Comment on above: Performed By: #### B PEOPLE MANAGER #### [facility] [address] [place] [address] Dr. Carole Carvalho Globulin (S) [Mass/Vol] 3.8 g/dL Normal [facility] Comment on above: Performed By: #### B PEOPLE MANAGER #### [facility] [address] [place] [address] Dr. Carole Carvalho Glucose [Mass/Vol] 132 mg/dL Critically high 74-106 [facility] Comment on above: Performed By: #### B PEOPLE MANAGER #### [facility] [address] [place] [address] Dr. Carole Carvalho Potassium [Moles/Vol] 5.1 mmol/L Normal 3.5-5.1 [facility] Comment on above: Performed By: #### B PEOPLE MANAGER #### [facility] [address] [place] [address] Dr. Carole Carvalho Protein [Mass/Vol] 6.8 g/dL Normal 6.4-8.2 [facility] Comment on above: Performed By: #### B PEOPLE MANAGER #### [facility] [address] [address] [address] Carole Carvalho Sodium [Moles/Vol] 133 mmol/L Critically low 136-145 Th [facility] Comment on above: Performed By: #### B PEOPLE MANAGER #### [facility] [address] [place] [address] Dr. Carole Carvalho Urea nitrogen [Mass/Vol] 36.0 mg/dL Critically high 7.0-18 .0 [facility] Comment on above: Performed By: #### B PEOPLE MANAGER #### [facility] [address] [address] [address] Carole Carvalho Urea nitrogen/Creatinine [Mass ratio] 44.4 mg/mg Normal [facility] Comment on above: Performed By: #### B PEOPLE MANAGER #### [facility] [address] [place] [address] Dr. Carole Carvalho TROPONIN, HIGH SENSITIVITYon 07-16-2021 HSTROP 25.3 pg/mL Normal 4.0-76.1 [facility] Comment on above: Result Comment: CUT- OFF POINTS HAVE BEEN ESTABLISHED BASED ON THE FOURTH UNIVERSAL DEFINITIONS OF MYOCARDIAL INFARCTION. THE UPPER REFERENCE LIMIT (URL) OF TROPONIN, DEFINED THE 99TH PERCENTILE OF cTnI DISTRIBUTION IN A REFERENCE POPULATION, HAS BEEN CONFIRMED THE DECISION THRESHOLD FOR SD DIAGNOSIS. Performed By: #### B PEOPLE MANAGER #### [facility] [address] [place] [address] Dr. Carole Carvalho TSHon 07-16-2021 TSH 2.343 uIU/mL Normal 0.358-3.74 0 [facility] Comment on above: Performed By: #### L ACT #### [facility] [address] [place] [address] Dr. Carole Carvalho TSH RANGE SEE BELOW Normal [facility] Comment on above: Result Comment: <0.3 4 UIU/ml HYPERTHYROID 0.34-5.60 UIU/ml EUTHYROID >5.60 UIU/ml HYPOTHYROID Performed By: #### L ACT #### [facility] [address] [place] [address] Dr. Carole Carvalho XR CHEST 1 Von [...] by: KATE BUSH Date: 2021-07-16 13:55 Normal [facility] Vital Signs Date Time Vital Sign Value Performing Clinician Facility 10-08-2024 13:14-0400 Body height 172.7 cm Cyndi Asif [employer] PERSONNEL SUPERVISOR Work Phone: [facility] 10-08-2024 13:14-0400 Body mass index (BMI) [Ratio] 26.7 kg/m2 Cyndi Asif [employer]TRA[employer] PERSONNEL SUPERVISOR Work Phone: [facility] 10-08-2024 13:14-0400 Body weight 79.65 kg Cyndi Asif [employer]TRA[employer] PERSONNEL SUPERVISOR Work Phone: [facility] 10-08-2024 13:14-0400 Diastolic blood pressure 74 mm[Hg] Cyndi Asif [employer]OR[employer]TRA[employer]IC PERSONNEL SUPERVISOR Work Phone: [facility] 10-08-2024 13:14-0400 Heart rate 100 /min Cyndi Asif [employer]TRA[employer]IC PERSONNEL SUPERVISOR Work Phone: [facility] 10-08-2024 13:14-0400 Systolic blood pressure 142 mm[Hg] Cyndi Asif [employer]OR[employer]TRA[employer]IC PERSONNEL SUPERVISOR Work Phone: [facility] 07-26-2024 09:48-0400 Body height 175.3 cm Ran Chavez MD Work Phone: [facility] 07-26-2024 09:48-0400 Body mass index (BMI) [Ratio] 25.99 kg/m2 Ran Chavez MD Work Phone: [facility] 07-26-2024 09:48-0400 Body temperature 99.5 [degF] Ran Chavez MD Work Phone: [facility] 07-26-2024 09:48-0400 Body weight 79.83 kg Ran Chavez MD Work Phone: [facility] 07-26-2024 09:48-0400 Diastolic blood pressure 76 mm[Hg] Ran Chavez MD Work Phone: [facility]. [facility] 07-26-2024 09:48-0400 Heart rate 102 /min Ran Chavez MD Work Phone: [facility] 07-26-2024 09:48-0400 Respiratory rate 18 /min Ran Chavez MD Work Phone: [facility] 07-26-2024 09:48-0400 SaO2% (BldA) [Mass fraction] 91 % Ran Chavez MD Work Phone: [facility] 07-26-2024 09:48-0400 Systolic blood pressure 126 mm[Hg] Ran Chavez MD Work Phone: [facility] 04-24-2024 15:28-0500 Body height 172.7 cm Cyndi Asif CITY COLLECTOR-TRAFFIC PERSONNEL SUPERVISOR Work Phone: [facility] 04-24-2024 15:28-0500 Body mass index (BMI) [Ratio] 27.06 kg/m2 Cyndi Asif CITY COLLECTOR-TRAFFIC PERSONNEL SUPERVISOR Work Phone: [facility] 04-24-2024 15:28-0500 Body weight 80.74 kg Cyndi Asif CITY COLLECTOR-TRAFFIC PERSONNEL SUPERVISOR Work Phone: [facility] 04-24-2024 15:28-0500 Diastolic blood pressure 58 mm[Hg] Cyndi Asif CITY COLLECTOR-TRAFFIC PERSONNEL SUPERVISOR Work Phone: [facility] 04-24-2024 15:28-0500 Heart rate 117 /min Cyndi Asif CITY COLLECTOR-TRAFFIC PERSONNEL SUPERVISOR Work Phone: [facility] 04-24-2024 15:28-0500 Systolic blood pressure 96 mm[Hg] Cyndi Asif CITY COLLECTOR-TRAFFIC PERSONNEL SUPERVISOR Work Phone: [facility] 07-28-2023 10:04-0400 Diastolic blood pressure 78 mm[Hg] Ran Chavez MD Work Phone: [facility] 07-28-2023 10:04-0400 Heart rate 70 /min Ran Chavez MD Work Phone: [facility] 07-28-2023 10:04-0400 Systolic blood pressure 136 mm[Hg] Ran Chavez MD Work Phone: [facility] 07-28-2023 10:02-0400 Body mass index (BMI) [Ratio] 26.52 kg/m2 Ran Chavez MD Work Phone: [facility] 07-28-2023 10:02-0400 Body weight 79.11 kg Ran Chavez MD Work Phone: [facility] 07-28-2023 10:02-0400 SaO2% (BldA) [Mass fraction] 96 % Ran Chavez MD Work Phone: [facility] 06-09-2023 12:25-0400 Body height 172.7 cm Ran Chavez MD Work Phone: [facility] 06-09-2023 12:25-0400 Body mass index (BMI) [Ratio] 27.03 kg/m2 Ran Chavez MD Work Phone: [facility] 06-09-2023 12:25-0400 Body weight 80.65 kg Ran Chavez MD Work Phone: [facility] 06-09-2023 12:25-0400 Diastolic blood pressure 70 mm[Hg] Ran Chavez MD Work Phone: [facility] 06-09-2023 12:25-0400 Heart rate 105 /min Ran Chavez MD Work Phone: [facility] 06-09-2023 12:25-0400 Systolic blood pressure 113 mm[Hg] Ran Chavez MD Work Phone: [facility] 05-04-2023 15:05-0500 Body height 172.7 cm Jaziel Gomez MD Work Phone: [facility] 05-04-2023 15:05-0500 Body mass index (BMI) [Ratio] 25.85 kg/m2 Jaziel Gomez MD Work Phone: [facility] 05-04-2023 15:05-0500 Body weight 77.11 kg Jaziel Gomez MD Work Phone: [facility] 05-04-2023 15:05-0500 Diastolic blood pressure 76 mm[Hg] Jaziel Gomez MD Work Phone: [facility] 05-04-2023 15:05-0500 Heart rate 105 /min Jaziel Gomez MD Work Phone: [facility] 05-04-2023 15:05-0500 Systolic blood pressure 138 mm[Hg] Jaziel Gomez MD Work Phone: [facility] 11-10-2022 12:43-0400 Body height 172.72 cm No PCP None Merged with [facility] 250 DO Work Phone: 11-10-2022 12:43-0400 Body mass index (BMI) [Ratio] 23.11 kg/m2 No PCP None Merged with [facility] 250 DO Work Phone: 11-10-2022 12:43-0400 Body surface area Derived from formula 1.82 m2 No PCP None Merged with [facility] 250 DO Work Phone: 11-10-2022 12:43-0400 Body weight 68.95 kg No PCP None Merged with [facility] 250 DO Work Phone: 11-10-2022 12:43-0400 Diastolic blood pressure 58 mm[Hg] No PCP None Merged with [facility] 250 DO Work Phone: 11-10-2022 12:43-0400 Heart rate 77 /min No PCP None Merged with [facility] 250 DO Work Phone: 11-10-2022 12:43-0400 Systolic blood pressure 100 mm[Hg] No PCP None Merged with [facility] DO Work Phone: 10-25-2022 10:08-0400 Body height 172.72 cm No PCP None Merged with [facility] 250 DO Work Phone: 10-25-2022 10:08-0400 Body mass index (BMI) [Ratio] 22.5 kg/m2 No PCP None Merged with [facility] 250 DO Work Phone: 10-25-2022 10:08-0400 Body surface area Derived from formula 1.8 m2 No PCP None Merged with [facility] 250 DO Work Phone: 10-25-2022 10:08-0400 Body weight 67.13 kg No PCP None Merged with [facility] DO Work Phone: 10-25-2022 10:08-0400 Diastolic blood pressure 84 mm[Hg] No PCP None Merged with [facility] DO Work Phone: 10-25-2022 10:08-0400 Heart rate 144 /min No PCP None Merged with [facility] DO Work Phone: 10-25-2022 10:08-0400 Systolic blood pressure 102 mm[Hg] No PCP None Merged with [facility] 250 DO Work Phone: 09-14-2022 14:00-0400 Body weight 64.41 kg Imad Asaad Other [employer] Other 09-14-2022 14:00-0400 Diastolic blood pressure 58 mm[Hg] Imad Asaad Other [employer] Other 09-14-2022 14:00-0400 Systolic blood pressure 106 mm[Hg] Imad Lazaroad Other [facility] [employer] Other 07-11-2022 01:58-0400 Diastolic blood pressure 63 mm[Hg] MD Iris Holliday Work Phone: [facility] 07-11-2022 01:58-0400 Heart rate 62 /min MD Iris Holliday Work Phone: [facility] 07-11-2022 01:58-0400 Systolic blood pressure 142 mm[Hg] MD Iris Holliday Work Phone: [facility] 07-11-2022 01:56-0400 Inhaled oxygen flow rate 6 L/min MD Iris Holliday Work Phone: [facility] 07-11-2022 01:56-0400 Respiratory rate 18 /min MD Iris Holliday Work Phone: [facility] 07-11-2022 01:11-0400 Body height 172.72 cm MD Iris Holliday Work Phone: [facility] 07-11-2022 01:11-0400 Body temperature 98.6 [degF] MD Iris Holliday Work Phone: [facility] 07-11-2022 01:11-0400 Body weight 69.8 kg MD Iris Holliday Work Phone: [facility] 07-11-2022 00:50-0400 SaO2% (BldA) [Mass fraction] 96 % MD Iris Holliday Work Phone: [facility] Encounters Encounter Date Encounter Type Care Provider Facility Start: 10-08-2024 End: 10-08-2024 Office outpatient visit 25 minutes Cyndi Asif CITY COLLECTOR-TRAFFIC PERSONNEL SUPERVISOR Work Phone: [facility] Comment on above: High risk medication use (Primary Dx); Paroxysmal atrial fibrillation (Multi); correction current use of anticoagulant therapy; Pacemaker; Mixed hyperlipidemia; BMI 26.0-26.9,adult Start: 10-08-2024 End: 10-08-2024 ambulatory [facility] Start: 09-14-2024 End: 09-17-2024 Clinisync Result Encounter Ran Chavez MD Work Phone: [facility] Unsolicited Start: 09-14-2024 End: 09-17-2024 Clinisync Result Encounter Ran Chavez MD Work Phone: [facility] External [facility] Unsolicited Start: 08-06-2024 End: 08-06-2024 Clinisync Result Encounter Generic External Data Provider [facility] External Department Unsolicited Start: 08-06-2024 End: 08-06-2024 Clinisync Result Encounter Generic External Data Provider [facility] External [facility] Unsolicited Start: 07-27-2024 End: 07-27-2024 Patient encounter procedure Jose Manuel Kapoork PEOPLE MANAGER-C Work Phone: [facility]-Pacemaker Check Start: 07-27-2024 End: 07-27-2024 ambulatory Jose Manuel Aliceatrick PEOPLE MANAGER-C Work Phone: [facility] Work Phone: Start: 07-27-2024 Non-patient / Non-visit Krista Aliceatrick PEOPLE MANAGER-C Work Phone: [facility] Start: 07-26-2024 End: 07-26-2024 Office outpatient visit 25 minutes Ran Chavez MD Work Phone: [facility] Comment on above: Severe claudication (Primary Dx) Start: 07-26-2024 End: 07-26-2024 ambulatory RAN CHAVEZ [facility] Start: 07-10-2024 End: 07-10-2024 ambulatory Bradford Vines [facility] Work Phone: Start: 07-10-2024 End: 07-10-2024 Departed Referred Bradford Vines MD Work Phone: [facility] [place] Work Phone: Start: 05-24-2024 End: 05-24-2024 Bamboo flowsheet Miley Kam PA Work Phone: [facility] Start: 05-24-2024 End: 05-24-2024 Bamboo flowsheet Miley Kam PA Work Phone: [facility] Start: 05-24-2024 End: 05-24-2024 Patient encounter procedure Miley Kam PA Work Phone: [facility] Comment on above: Neoplasm of unspecif ied behavior of bone, soft tissue, and skin Start: 05-24-2024 End: 05-24-2024 ambulatory MILEY KAM Not Available Start: 05-11-2024 End: 05-22-2024 Refill Ran Chavez MD Work Phone: [facility] Comment on above: Severe claudication ([facility]-H[facility]) Start: 05-03-2024 End: 05-03-2024 Clinisync Result Encounter Generic External Data Provider [facility] External Department Unsolicited Start: 05-03-2024 End: 05-03-2024 Clinisync Result Encounter Generic External Data Provider [facility] External Department Unsolicited Start: 04-27-2024 End: 04-27-2024 ambulatory Jose Manuel Ybarra Facility:[facility] Start: 04-27-2024 Non-patient / Non-visit [facility] Start: 04-24-2024 End: 04-24-2024 Office outpatient visit 25 minutes Cyndi Asif CITY COLLECTOR-TRAFFIC PERSONNEL SUPERVISOR Work Phone: [facility] Comment on above: High risk medication use (Primary Dx); Paroxysmal atrial fibrillation (Multi); 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; Pacemaker; BMI 27.0-27.9,adult; Mixed hyperlipidemia Start: 04-24-2024 End: 04-24-2024 ambulatory CYNDI Dominguez [facility] Ambulatory Start: 01-31-2024 Non-patient / Non-visit [facility] Start: 01-27-2024 End: 01-27-2024 ambulatory Kentrell Stokes Jose Facility:[facility] Start: 10-26-2023 End: 10-26-2023 ambulatory PHYSICIAN [facility] Work Phone: Start: 10-26-2023 End: 10-26-2023 Patient encounter procedure PHYSICIAN [facility]-Pacemaker Check Start: 07-28-2023 End: 07-28-2023 Office outpatient visit 25 minutes Ran Chavez MD Work Phone: [facility] Comment on above: Severe claudication (CMS-HCC) (Primary Dx); Iliac artery occlusion, bilateral (CMS-HCC) Start: 07-27-2023 End: 07-27-2023 ambulatory MD Shaikh Allen Work Phone: [facility] Work Phone: Start: 07-27-2023 End: 07-27-2023 Patient encounter procedure MD Shaikh Allen Work Phone: [facility]Pacemaker [facility] Start: 06-09-2023 End: 06-09-2023 Office outpatient visit 25 minutes Ran Chavez MD Work Phone: [facility] Comment on above: Severe claudication (CMS-HCC) (Primary Dx); 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) Start: 05-04-2023 End: 05-04-2023 Office outpatient visit 25 minutes Jaziel Gomez MD Work Phone: [facility] Comment on above: Paroxysmal atrial fi brillation (CMS/HCC) (Primary Dx); SSS (sick sinus syndrome) (CMS/HCC); 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; Pacemaker; BMI 25.0-25.9,adult; Former smoker Start: 01-25-2023 End: 01-25-2023 ambulatory MD Shaikh Allen Work Phone: [facility] Work Phone: Start: 01-25-2023 End: 01-25-2023 Patient encounter procedure MD Shaikh Allen Work Phone: [facility]Pacemaker Check Start: 11-10-2022 Office outpatient vi sit 25 minutes No PCP None Merged with [facility] 250 DO Work Phone: Start: 11-10-2022 ambulatory Cyndi Asif Facility:1 [id number] Start: 10-25-2022 Office outpatient vi sit 25 minutes No PCP None Merged with [facility] 250 DO Work Phone: Start: 10-25-2022 Patient encounter procedure No PCP None Merged with [facility] 250 DO Work Phone: Start: 10-25-2022 ambulatory Cyndi Asif Facility:1 [id number] Start: 10-18-2022 Chart Update No PCP None [facility] 250 DO Work Phone: Start: 10-18-2022 ambulatory Cyndi Asif Facility:9 090 Start: 10-18-2022 End: 10-18-2022 ambulatory MD Shaikh Allen Work Phone: [facility] Work Phone: Start: 10-18-2022 End: 10-18-2022 Patient encounter procedure MD Shaikh Allen Work Phone: [facility]Pacemaker [facility] Start: 09-14-2022 End: 09-14-2022 ambulatory Imad Asaad Other [facility] [employer] Other Start: 09-14-2022 Office outpatient ne w 45 minutes Imad Asaad [facility] Start: 07-23-[address] Jaziel Gomez II Facility: Start: 07-19-[address] Jaziel Gomez II Facility:90 Start: 07-18-2022 ambulatory Cyndi Asif Facility:9 0 Start: 07-17-2022 ambulatory Cyndi Asif Facility:9 0 Start: 07-16-[address] Jaziel Gomez II Facility:[id number] Start: 07-15-2022 ambulatory Cyndi Asif Facility:9 090 Start: 07-14-2022 ambulatory Cyndi Asif Facility:9 090 Start: 07-13-2022 ambulatory Cyndi Asif Facility:9 090 Start: 07-12-2022 ambulatory Cyndi Asif Facility:[facility] Start: 07-12-2022 ambulatory Cyndi Asif Facility:9 090 Start: 07-11-2022 ambulatory Cyndi Asif Facility:9 090 Start: 07-11-2022 ambulatory Cyndi Asif Facility:9 090 Start: 07-10-2022 Evaluation and management of inpatient MD Iris Holliday Work Phone: [facility] Work Phone: Start: 12-09-2021 End: 12-09-2021 ambulatory EDISON MUNROE [facility] Start: 11-16-2021 End: 11-17-2021 ambulatory NIVIA WAGNER Facility:H1 Start: 11-05-2021 End: 11-06-[address] KATE BUSH Facility:H1 Start: 08-14-2021 ambulatory NONE LISTED REQUEST Facility:H1 Start: 07-16-2021 End: 07-27-2021 Evaluation and management of inpatient SHAIKH Rasta [place] Facility:H1 Procedures Date Procedure Procedure Detail Performing Clinician Start: 09-14-2024 SEGMENTAL BLOOD PRESSURE Ran Chavez MD Work Phone: Start: 08-06-2024 CT LUNG SCREENING LO W DOSE Generic External Data Provider Start: 05-24-2024 SKIN / NAIL BIOPSY Sujey DASH Work Phone: Start: 05-03-2024 ALL CBC WITH AUTO DIFF Generic External Data Provider Start: 04-24-2024 Ecg routine ecg w/le ast 12 lds w/i&r Cyndi Asif CITY COLLECTOR-TRAFFIC PERSONNEL SUPERVISOR Work Phone: Start: 05-04-2023 Ecg routine ecg w/le ast 12 lds w/i&r Jaziel Gomez MD Work Phone: Start: 08-21-2023 Plain chest X-ray MD Eleazar Allen Work [...] Treatment Date Care Activity Detail Author Start: 05-15-2025 End: 05-15-2025 Patient encounter procedure 05/15/2025 1:00 PM EDT Office Visit [facility] [address] [facility] [address] [place] [id number] Cyndi Asif, CITY COLLECTOR-TRAFFIC PERSONNEL SUPERVISOR [address] [place] [address] [facility] Start: 10-29-[address] [facility] Start: 10-08-2024 End: 10-08-2025 Alanine aminotransferase [Enzymatic activity/volume] in Serum or Plasma by With P-5'-P Alanine Aminotransferase Lab Routine Paroxysmal atrial fibrillation (Multi) Mixed hyperlipidemia Expected: 10/08/2024 (Approximate), Expires: 10/08/2025 [facility] Work Phone: Comment on above: Expected: 10/08/2024 (Approximate), Expi res: 10/08/2025 Start: 10-08-2024 End: 10-08-2025 Aspartate aminotransferase [Enzymatic activity/volume] in Serum or Plasma by With P-5'-P Aspartate Aminotransferase Lab Routine Paroxysmal atrial fibrillation (Multi) Mixed hyperlipidemia Expected: 10/08/2024 (Approximate), Expires: 10/08/2025 [facility] Service Area Work Phone: Comment on above: Expected: 10/08/2024 (Approximate), Expi res: 10/08/2025 Start: 10-08-2024 End: 10-08-2025 Basic metabolic 2000 panel - Serum or Plasma Basic Metabolic Panel Lab Routine Paroxysmal atrial fibrillation (Multi) Mixed hyperlipidemia Expected: 10/08/2024 (Approximate), Expires: 10/08/2025 [facility] Work Phone: Comment on above: Expected: 10/08/2024 (Approximate), Expi res: 10/08/2025 Start: 10-08-2024 End: 10-08-2025 CBC panel - Blood by Automated count CBC Lab Routine Paroxysmal atrial fibrillation (Multi) correction current use of anticoagulant therapy Mixed hyperlipidemia Expected: 10/08/2024 (Approximate), Expires: 10/08/2025 [facility] Work Phone: Comment on above: Expected: 10/08/2024 (Approximate), Expi res: 10/08/2025 Start: 10-08-2024 End: 10-08-2025 Lipid 1996 panel - Serum or Plasma Lipid Panel Lab Routine High risk medication use Mixed hyperlipidemia Expected: 10/08/2024 (Approximate), Expires: 10/08/2025 [facility] Work Phone: Comment on above: Expected: 10/08/2024 (Approximate), Expi res: 10/08/2025 Start: 10-08-2024 End: 10-08-2024 Patient encounter procedure 10/08/2024 1:00 PM EDT Office Visit [facility] [address] [facility] [address] [place] [id number] Cyndi Asif, CITY COLLECTOR-TRAFFIC PERSONNEL SUPERVISOR [address] [facility] [address], [facility] [address] [place] [address] [facility] Start: 08-02-2024 End: 08-02-2024 Patient encounter procedure 08/02/2024 10:00 AM EDT Office Visit [facility] [address] [place] [address] Ran Chavez MD [address], [address] [address] [facility] Start: 07-27-2024 Adult BMI Screening Adult BMI Screening [facility] Start: 07-27-2024 Tobacco Screening Tobacco Screening [facility] Start: 07-27-2024 End: 07-27-2024 US.doppler Aorta and Iliac artery - bilateral Vas aorta/iliac duplex complete Vascular Ultrasound Routine Severe claudication (CMS-HCC) Iliac artery occlusion, bilateral (CMS-HCC) Expected: 07/27/2024 (Approximate), Expires: 07/27/2024 [facility] Comment on above: Expected: 07/27/2024 (Approximate), Expi res: 07/27/2024 Start: 07-27-2024 End: 07-27-2024 US.doppler Extremity arteries - bilateral for physiologic artery study Vas art doppler lwr bilat mult lev/PVR Vascular Ultrasound Routine Severe claudication (CMS-HCC) Expected: 07/27/2024 (Approximate), Expires: 07/27/2024 [facility] Work Phone: Comment on above: Expected: 07/27/2024 (Approximate), Expi res: 07/27/2024 Start: 07-26-2024 End: 01-26-2026 US.doppler Extremity arteries - bilateral for physiologic artery study Vas art doppler lwr bilat mult lev/PVR Vascular Ultrasound Routine Severe claudication (CMS-HCC) Expected: 07/26/2024, Expires: 01/26/2026 [facility] Work Phone: Comment on above: Expected: 07/26/2024, Expires: Start: 07-26-2024 End: 07-26-2024 Patient encounter procedure 07/26/2024 10:00 AM EDT Office Visit [facility] [address] [place] [phone] Ran Chavez MD [address], [address] [address] [facility] Start: 06-08-2024 Adult BMI Screening Adult BMI Screening [facility] Start: 04-11-2025 Tobacco Screening Tobacco Screening [facility] Start: 05-24-2024 End: 05-24-2024 Patient encounter procedure 05/24/2024 1:40 PM EDT Office Visit [facility] [address] [place] [address] Miley Kam PA [address] [place] [address] Arrived [facility] Comment on above: Arrived Start: 04-24-2024 End: 04-24-2025 Alanine aminotransferase [Enzymatic activity/volume] in Serum or Plasma by With P-5'-P Alanine Aminotransferase Lab Routine Paroxysmal atrial fibrillation (Multi) High risk medication use Expected: 04/24/2024 (Approximate), Expires: 04/24/2025 [facility] Work Phone: Comment on above: Expected: 04/24/2024 (Approximate), Expi res: 04/24/2025 Start: 04-24-2024 End: 04-24-2025 Basic metabolic 2000 panel - Serum or Plasma Basic Metabolic Panel Lab Routine Paroxysmal atrial fibrillation (Multi) High risk medication use Expected: 04/24/2024 (Approximate), Expires: 04/24/2025 [facility] Service Area Work Phone: Comment on above: Expected: 04/24/2024 (Approximate), Expi res: 04/24/2025 Start: 04-24-2024 End: 04-24-2025 CBC panel - Blood by Automated count CBC Lab Routine Paroxysmal atrial fibrillation (Multi) High risk medication use Expected: 04/24/2024 (Approximate), Expires: 04/24/2025 [facility] Work Phone: Comment on above: Expected: 04/24/2024 (Approximate), Expi res: 04/24/2025 Start: 04-24-2024 End: 04-24-2025 Lipid 1996 panel - Serum or Plasma Lipid Panel Lab Routine Paroxysmal atrial fibrillation (Multi) High risk medication use Expected: 04/24/2024 (Approximate), Expires: 04/24/2025 [facility] Work Phone: Comment on above: Expected: 04/24/2024 (Approximate), Expi res: 04/24/2025 Start: 04-24-2024 End: 04-24-2026 US Heart Transthoracic Transthoracic Echo Complete Echocardiography Routine Paroxysmal atrial fibrillation (Multi) Expected: 04/24/2024 (Approximate), Expires: 04/24/2026 [facility] Work Phone: Comment on above: Expected: 04/24/2024 (Approximate), Expi res: 04/24/2026 Start: 01-09-2024 End: 01-09-2024 Patient encounter procedure 01/09/2024 11:30 AM EST Office Visit [facility] [address] [place] [address] Cyndi Asif, CITY COLLECTOR-TRAFFIC PERSONNEL SUPERVISOR [address] [place] [address] [facility] Start: 12-09-2023 End: 06-08-2024 US.doppler Aorta and Iliac artery - bilateral Vas aorta/iliac duplex complete Vascular Ultrasound Routine Severe claudication (CMS-HCC) 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) Expected: 12/09/2023 (Approximate), Expires: 06/08/2024 [facility] Comment on above: Expected: 12/09/2023 (Approximate), Expi res: 06/08/2024 Start: 10-30-2023 COVID-19 Vaccine ( season) COVID-19 Vaccine ( season) [facility] Start: 10-30-2023 Influenza vaccination [facility] Start: 07-12-2023 Echocardiography Echocardiogram [facility] Start: 07-07-2023 End: 07-07-2023 Patient encounter procedure 07/07/2023 8:50 AM EDT Office Visit [facility] [address] [place] [address] Ran Chavez MD [address], [address] [address] [facility] Start: 06-09-2023 End: 06-08-2024 US.doppler Extremity arteries - bilateral for physiologic artery study Vas art doppler lwr bilat mult lev/PVR Vascular Ultrasound Routine Severe claudication ([facility]) Expected: 06/09/2023, Expires: 06/08/2024 [facility] Work Phone: Comment on above: Expected: 06/09/2023, Expires: Start: 06-09-2023 End: 06-08-2024 US.doppler Lower extremity artery - bilateral Vas art duplex lwr bilateral Vascular Ultrasound Routine Severe claudication ([facility]) Expected: 06/09/2023, Expires: 06/08/2024 [facility] Comment on above: Expected: 06/09/2023, Expires: Start: 05-04-2023 FUV, Provider: Jaziel Gomez, Status: Pen, Time: 2:50 PM FUV, Provider: Jaziel Gomez, Status: Pen, Time: 2:50 PM Merged with [facility] 250 DO Work Phone: Start: 11-10-2022 FUV, Provider: Cyndi Polo, Status: Pen, Time: 12:30 PM FUV, Provider: Cyndi Polo, Status: Pen, Time: 12:30 PM Merged with [facility] 250 DO Work Phone: Start: 10-29-2022 Influenza vaccination Influenza Vaccine (#1) [facility] Start: 10-25-2022 FUV, Provider: Cyndi Polo, Status: Pen, Time: 10:00 AM FUV, Provider: Cyndi Polo, Status: Pen, Time: 10:00 AM Merged with [facility] 250 DO Work Phone: Start: 07-15-2022 Comprehensive metabolic 2000 panel - Serum or Plasma [facility] Start: 07-15-2022 [facility] Start: 07-14-2022 Comprehensive metabolic 2000 panel - Serum or Plasma [facility] Start: 07-14-2022 [facility] Start: 07-13-2022 Comprehensive metabolic 1999 panel - Serum or Plasma [facility] Start: 07-13-2022 [facility] [facility]: 07[facility]12-2022 Comprehensive metabolic [facility] panel - Serum or Plasma [facility] Start: 07-12-2022 [facility] Start: 07-11-2022 End: 07-12-2022 [facility] Start: 07-11-2022 Referral to promotions specialist [facility] Start: 07-11-2022 Consultation [facility] Start: 07-11-2022 Referral to behavioral medical director [facility] Start: 07-11-2022 End: 07-11-2022 [facility] Start: 07-11-2022 CT of head without contrast CT head/brain wo [facility] Start: 07-11-2022 CT Unspecified body region WO contrast [facility] Start: 07-10-2022 End: 07-10-2022 [facility] Start: 07-10-2022 Microbial culture of sputum [facility] Start: 07-10-2022 Ultrasonography of abdomen US abdomen limited [facility] Start: 07-10-2022 Consultation [facility] Start: 07-10-2022 Hospital admission [facility] Start: 07-10-2022 Plain chest X-ray XR chest 1V portable [facility] Start: 07-10-2022 XR Chest Single view [facility] Start: 07-10-2022 CT Abdomen and Pelvis WO contrast [facility] Start: 07-10-2022 CT Chest WO contrast [facility] Start: 07-10-2022 CT of abdomen and pelvis without contrast CT abdomen pelvis wo con [facility] Start: 07-10-2022 CT of chest without contrast CT chest wo [facility] Start: 07-10-2022 Plain chest X-ray XR chest 1V portable [facility] Start: 07-10-2022 XR Chest Single view [facility] Start: 07-10-2022 Bacteria identified in Blood by Culture [facility] Start: 07-10-2022 Bacteria identified in Urine by Culture [facility] Start: 10-05-2020 Abdominal aortic aneurysm screening [facility] Start: 10-05-2020 Fall Risk Screening Fall Risk Screening [facility] Start: 2015 Hepatitis B Vaccines (1 of 3 - Risk 3-dose series) Hepatitis B Vaccines (1 of 3 - Risk 3-dose series) [facility] Start: 2015 RSV High Risk: (Elderly (60+) or Population) (1 - Risk 60-74 years 1-dose series) RSV High Risk: (Elderly (60+) or Population) (1 - Risk 60-74 years 1-dose series) [facility] Start: 10-05-2005 Administration of varicella zoster vaccine Zoster (Shingles) Vaccine (1 of 2) [facility] Start: 10-05-2005 Prostate specific antigen measurement PSA Prostate Cancer Screening [facility] Start: 10-05-2005 Zoster Vaccines (1 of 2) Zoster Vaccines (1 of 2) [facility] Start: 10-05-1977 DTaP/Tdap/Td Vaccines (1 - Tdap) DTaP/Tdap/Td Vaccines (1 - Tdap) [facility] Start: 10-05-1974 DTaP,Tdap and Td Vaccines (1 - Tdap) DTaP,Tdap and Td Vaccines (1 - Tdap) [facility] Start: 10-05-1974 Hepatitis A Vaccines (1 of 2 - Risk 2-dose series) Hepatitis A Vaccines (1 of 2 - Risk 2-dose series) [facility] Start: 10-05-1974 Pneumococcal vaccination Pneumococcal Vaccine (1 of 2 - PCV) [facility] Start: 10-05-1973 Adult BMI Follow Up Plan Adult BMI Follow Up Plan [facility] Start: 10-05-1973 Diabetes mellitus screening Diabetes Screening [facility] Start: 10-05-1973 Hepatitis C screening Hepatitis C Screening [facility] Start: 1967 Depression Screening Depression Screening [facility] Start: 10-05-1961 Pneumococcal Vaccine: 65+ Years (1 - PCV) Pneumococcal Vaccine: 65+ Years (1 - PCV) [facility] Start: 10-05-1956 MMR Vaccines (1 of 1 - Standard series) MMR Vaccines (1 of 1 - Standard series) [facility] Start: 04-07-1956 COVID-19 Vaccine (#1) COVID-19 Vaccine (#1) [facility] Start: 1955 Creatinine measurement Creatinine Level [facility] Start: 1955 Lipid panel Lipid Panel [facility] Start: 1955 Medicare Annual Wellness Visit [facility] Start: 1955 Potassium measurement Potassium Level [facility] Start: 1955 Screening for malignant neoplasm of colon [facility] Start: 1955 [facility] [employer] [facility] Albumin/Globulin ratio [facility] Anion gap measurement [facility] aPTT in Platelet poo r plasma by Coagulation assay [facility] Basophils [#/volume] in Blood by Automated count [facility] Basophils/100 leukoc ytes in Blood by Automated count [facility] Dermatopathology exam Dermatopat hology exam Pathology and Cytology Timed Neoplasm of unspecified behavior of bone, soft tissue, and skin Release Upon Ordering for 1 Occurrences starting 05/24/2024 [facility] [employer] Work Phone: Comment on above: Release Upon Ordering for 1 Occurrences starting 05/24/2024 ECG 12 Lead ECG 12 Lead ECG Routine High risk medication use 04/24/2024 3:30 PM EST [facility] Work Phone: ECG 12 Lead ECG 12 Lead ECG Routine High risk medication use 10/08/2024 1:00 PM EDT [facility] Work Phone: Eosinophils [#/volum e] in Blood [facility] Eosinophils [Presenc e] in Urine sediment by Dodge stain [facility] Eosinophils/100 leuk ocytes in Blood by Automated count [facility] Erythrocyte distribu tion width [Ratio] by Automated count [facility] Erythrocytes [#/volu me] in Blood [facility] Globulin [Mass/volum e] in Serum [facility] Hematocrit [Volume Fraction] of Blood [facility] Hemoglobin [Mass/vol ume] in Blood [facility] INR in Platelet poor plasma by Coagulation assay [facility] Leukocytes [#/volume ] corrected for nucleated erythrocytes in Blood by Automated coun [facility] Leukocytes [#/volume ] in Blood [facility] Lymphocytes [#/volum e] in Blood by Automated count [facility] Lymphocytes/100 leuk ocytes in Blood by Automated count [facility] MCH [Entitic mass] b y Automated count [facility] MCHC [Mass/volume] b y Automated count [facility] MCV [Entitic volume] by Automated count [facility] Monocytes [#/volume] in Blood by Automated count [facility] Monocytes/100 leukoc ytes in Blood by Automated count [facility] Neutrophils [#/volum e] in Blood by Automated count [facility] Neutrophils/100 leuk ocytes in Blood by Automated count [facility] Nucleated erythrocyt es [Presence] in Blood by Automated count [facility] Platelet mean volume [Entitic volume] in Blood by Automated count [facility] Platelets [#/volume] in Blood [facility] Payers Date Payer Category Payer Medicare [id number] 1959 Medicaid [id number] 1959 Medicare [id number] 1959 Self-pay 1955 Unknown [id number] 2.16.84 0.1.994767.3.579.2.593 1955 Unknown [id number] 2.16.84 0.1.684789.3.579.2.593 1955 Unknown [id number] 2.16.84 0.1.677758.3.579.2.593 1955 Unknown [id number] 2.16.84 0.1.611267.3.579.2.593 1955 Unknown [id number] 2.16. 840.1.945429.3.579.2.356 1955 Unknown [id number] 2.16. 840.1.947452.3.579.2.356 1955 Unknown [id number] 2.16. 840.1.208710.3.579.2.356 1955 Unknown [id number] 2.16. 840.1.189806.3.579.2.356 1955 Unknown [id number] 2.16. 840.1.270638.3.579.2.356 1955 Unknown [id number] 2.16. 840.1.791468.3.579.2.356 1955 Unknown [id number] 2.16. 840.1.635497.3.579.2.356 1955 Unknown [id number] 2.. 840.1.538840.3.579.2.356 1955 Unknown [id number] 2. 840.1.803141.3.579.2.356 1955 Unknown [id number] 2.. 840.1.775095.3.579.2.356 1955 Unknown [id number] 2. 840.1.722403.3.579.2.356 1955 Unknown [id number] 2. 840.1.102275.3.579.2.356 1955 Unknown [id number] 2. 840.1.087795.3.579.2.356 1955 Unknown [id number] 2.16. 840.1.292086.3.579.2.356 1955 Unknown [id number] 2.16.84 0.1.036277.3.579.2.1259 1955 Unknown [id number] 2.16. 840.1.900114.3.579.2.1286 1955 Unknown [id number] 2.16. 840.1.924330.3.579.2.1244 1956 Unknown [id number] 2.16. 840.1.070967.3.579.2.1244 Medicare Medicare [id number] Unknown Unknown [id number] Unknown [id number] 2.16.8 40.1.456486.3.579.2.531 Unknown [id number] 2.16.8 40.1.541501.3.579.2.531 Unknown [id number] 2.16.8 40.1.205782.3.579.2.531 Unknown [id number] 2.16.8 40.1.320302.3.579.2.531 Unknown [id number] 2.16.8 40.1.044715.3.579.2.531 Social History Date Type Detail Facility Start: 07-11-2022 End: 07-16-2022 Tobacco smoking status NMIS Never smoked tobacco (finding) [facility] Start: 1955 Sex Assigned At Male F [facility] Start: 05-04-2023 End: 10-08-2024 Sex Assigned At theAudience [facility] [employer] Other Start: 05-04-2023 End: 10-08-2024 Occasional alcohol use Occasional alcohol use -[facility] [address] DO Work Phone: Comment on above: 3-4 beers weekly; Start: 05-04-2023 End: 04-24-2024 Tobacco smoking status NHIS Ex-smoker [facility] Start: 06-28-1973 End: 06-28-2022 History of tobacco use Current smoker [facility] Work Phone: Start: 06-28-1973 End: 06-28-2022 History of tobacco use Cigarette Smoker [facility] Work Phone: Start: 05-04-2023 End: 04-24-2024 Tobacco use and exposure Smokeless tobacco non-user [facility] Work Phone: Start: 05-04-2023 End: 10-08-2024 Alcohol intake Current drinker of alcohol (finding) [facility] Work Phone: Start: 1955 Sex Assigned At Not on file [facility] Work Phone: Start: 04-24-2023 End: 04-24-2024 Exposure to SARS-CoV-2 (event) Not sure [facility] Start: 06-08-1978 Tobacco smoking stat us NMIS Smokes tobacco daily [facility] Start: 07-12-2022 Childcare Unknown [facility] Start: 04-28-2024 End: 07-28-2024 Sex Male (finding) [facility] Start: 03-01-2023 Alcohol Comment OCCASSIONAL [facility] Start: 07-26-2024 Tobacco Comment Quit after pac emaker placed [facility] Medical Equipment Procedure Code Equipment Code Equipment Origin al Text Equipment Identifier Dates Insertion, pacemaker Endocardial pacing lead [id number] FDA Start: 07-16-2022 Insertion, pacemaker Endocardial pacing lead [id number] FDA Start: 07-16-2022 Insertion, pacemaker Dual-chamber implantable pacemaker, rate-responsive [id number] FDA Start: 07-16-2022 Goals Date Patient Goal Desired Activity /State Functional Status Date Assessment Result Facility 07-11-2022 Functional status Patient Not at Baseline [facility] Work Phone: Mental Status Date Assessment Result Facility 07-11-2022 Cognitive function Cognitive Sta tus Patient Not at Baseline [facility] Work Phone: Clinical Notes 12-09-2021 to 10-08-2024 Assessment & Plan Note - PETER Montanez - 10/08/2024 2:47 PM EDTAssessment & Plan Note - PETER Montanez - 10/08/2024 2:47 PM EDTPatient InstructionsPatient Instructions Note Date & Type Note Facility 10-08-2024 Evaluation + Plan note Associated Problem(s): BMI 26.0-26.9,adult Reviewed the merits of healthy lifestyle choices on overall cardiovascular health. [facility] Work Phone: 10-08-2024 Miscellaneous Notes Associated Problem(s): BMI 26.0-26.9,adult Reviewed the merits of healthy lifestyle choices on overall cardiovascular health. 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 June 2022 TTE LVEF 65-70% RV dilation with severe hypokinesis distal RCA. Right bundle branch block and left anterior fascicular block Prior iliac stenting-follows with local vascular. Associated Problem(s): High risk medication use Dofetilide start date June [address], QTC 495. 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 VASc 2 chronically anticoagulated full dose Eliquis (age 69, wt 80kg) Denies bleeding diathesis [facility] Work Phone: 10-08-2024 Evaluation + Plan note Associated Problem(s): Mixed hyperlipidemia Moderate intensity statin Will order labs today [facility] Work Phone: 10-08-2024 Evaluation + Plan note Associated Problem(s): Pacemaker SJM 2272 dual chamber PPM June 2024 device interrogation [facility] Work Phone: 10-08-2024 Evaluation + Plan note Associated Problem(s): Paroxysmal atrial fibrillation (Multi) Diagnosis June 2022 and placed on dofetilide June 2024 device interrogation with 40 minutes mode switching ECG in office today NSR [facility] Work Phone: 10-08-2024 Evaluation + Plan note Associated Problem(s): Cardiac and Vasculature Reports remote stress testing. June 2022 TTE LVEF 65-70% RV dilation with severe hypokinesis distal RCA. Right bundle branch block and left anterior fascicular block Prior iliac stenting-follows with local vascular. [facility] Work Phone: 10-08-2024 Evaluation + Plan note Associated Problem(s): High risk medication use Dofetilide start date June [address], QTC 495. Right bundle branch block CR - labs ordered [facility] Work Phone: 10-08-2024 History of Presen t illness Narrative Chief Complaint Doing ok I guess Reason for Visit 6-month follow-up Patient presents to the office today for outpatient follow-up for atrial fibrillation and high risk med use. Last evaluated in clinic by myself March 2024. Presents today ambulatory with steady gait; utilizing oxygen. Accompanied by spouse Patient denies any hospitalizations or significant changes to interval medical history since last office follow-up. He denies routine PCP follow-up. He has seen vascular this year and pulmonary. History of Present Illness Patient is a pleasant 69-year-old gentleman who presents to the office today where he walked in from the parking lot doing okay . Sometimes he will feel little bloated and reports decreased appetite but denies any type of early satiety. No evidence of fluid retention or volume overload on exam. He sleeps in recliner for comfort. Denies any palpitations. Activity level is fairly sedentary secondary to functional class III shortness of breath due to underlying pulmonary disease. He is maintaining sinus rhythm he has right bundle branch block known by history. Continues to tolerate anticoagulation. Discussed the importance of annual surveillance lab and he is in agreement to obtain. Patient reports that overall has no complaint(s) of chest pain, chest pressure/discomfort, claudication, exertional chest pressure/discomfort, fatigue, and lower extremity edema Review of Systems Cardiovascular: Negative for chest pain, dyspnea on exertion, irregular heartbeat, leg swelling, near-syncope, orthopnea, palpitations, paroxysmal nocturnal dyspnea and syncope. Visit Vitals BP 142/74 (BP Location: Left arm, Patient Position: Sitting) Pulse 100 Ht 1.727 m (5' 8 ) Wt 79.7 kg (175 lb 9.6 oz) BMI 26.70 kg/m Smoking Status Former BSA 1.96 m Physical Exam Vitals and nursing note reviewed. Constitutional: Appearance: Normal appearance. Cardiovascular: Rate and Rhythm: Regular rhythm. Tachycardia present. Heart sounds: Normal heart sounds. Pulmonary: Effort: Pulmonary effort is normal. Breath sounds: Examination of the right-lower field reveals decreased breath sounds. Examination of the left-lower field reveals decreased breath sounds. Decreased breath sounds present. Musculoskeletal: Cervical back: Full passive range of motion without pain. Right lower leg: No edema. Left lower leg: No edema. Skin: General: Skin is cool. Neurological: Mental Status: He is alert and oriented to person, place, and time. Psychiatric: Attention and Perception: Attention normal. Mood and Affect: Mood normal. Behavior: Behavior is cooperative. ALLERGIES: Codeine Current Outpatient Medications Medication Instructions atorvastatin (LIPITOR) 40 mg, Daily dofetilide (TIKOSYN) 250 mcg, oral, 2 times daily Eliquis 5 mg, oral, 2 times daily furosemide (LASIX) 20 mg, oral, Daily metoprolol succinate XL (TOPROL-XL) 25 mg, oral, Daily oxygen (O2) gas therapy 1 each, Continuous Assessment: High risk medication use Dofetilide start date June [address], QTC 495. Right bundle branch block CR - labs ordered Cardiac and Vasculature Reports remote stress testing. June 2022 TTE LVEF 65-70% RV dilation with severe hypokinesis distal RCA. Right bundle branch block and left anterior fascicular block Prior iliac stenting-follows with local vascular. Paroxysmal atrial fibrillation (Multi) Diagnosis June 2022 and placed on dofetilide June 2024 device interrogation with 40 minutes mode switching ECG in office today NSR Pacemaker SJM 2272 dual chamber PPM June 2024 device interrogation Mixed hyperlipidemia Moderate intensity statin Will order labs today correction current use of anticoagulant therapy CHADS VASc 2 chronically anticoagulated full dose Eliquis (age 69, wt 80kg) Denies bleeding diathesis BMI 26.0-26.9,adult Reviewed the merits of healthy lifestyle choices on overall cardiovascular health. The patient Plan: Through informed decision making process incorporating patients unique circumstances, the following treatment plan will be initiated: 1. Prescription drug management of cardiovascular medication for efficacy, adherence to treatment, side effect assessment and polypharmacy. Current treatment clinically warranted and to continue without modifications. 2. Annual labs (cbc, chem6, lipids) 3. Return for follow-up; in the interim, contact the office if new symptoms arise. PEOPLE MANAGER 6 month Cyndi Asif MSN, CITY COLLECTOR-TRAFFIC PERSONNEL SUPERVISOR, PMHNP-[facility] [place], [place] Please excuse any errors in grammar or translation related to this dictation. Voice recognition software was utilized to prepare this document. documented in this encounter [facility] Work Phone: 10-08-2024 Instructions PETER Montanez - 10/08/2024 1:00 PM EDT Please bring all medicines, vitamins, and herbal [...] to continue without modifications. 2. Annual labs (cbc, chem6, lipids) 3. Return for follow-up; in the interim, contact the office if new symptoms arise. PEOPLE MANAGER 6 month documented in this encounter [facility] Work Phone: 07-26-2024 Evaluation + Plan note Associated Problem(s): Severe claudication PVR continue aspirin and statin: 81 mg aspirin and 40 mg atorvastatin. Continue Plavix [address] [facility] 07-26-2024 Miscellaneous Notes Associated Problem(s): Severe claudication PVR continue aspirin and statin: 81 mg aspirin and 40 mg atorvastatin. Continue Plavix 75 mg. documented in this encounter [facility] 07-26-2024 History of Presen t illness Narrative Images from the original note were not included. To: No primary care provider on file. HPI: Jaime Lechuga is a 68 y.o. male with lower [...] EMPTY STOMACH (Patient not taking: Reported on 07/26/2024) sertraline (ZOLOFT) 25 mg tablet Take 1 tablet (25 mg total) by mouth in the morning. (Patient not taking: Reported on 07/26/2024) No current facility-administered medications on file prior to visit. Past Medical History: Past Medical History: Diagnosis Date Deep vein thrombosis ([facility]) Past Surgical History: Past Surgical History: Procedure [...] Interpersonal Safety: Unknown (04/21/2023) Received from [facility] Fear of Current [...] M (9-13 inches)) Pulse 102 Temp 37.5 C (99.5 F) (Temporal) Resp 18 Ht 175.3 cm (5' 9 ) Wt 79.8 kg (176 lb) SpO2 91% PF (!) 2 L/min BMI 25.99 kg/m Body mass index is 25.99 kg/m . Physical Exam: Physical Exam Constitutional: [...] Ran Chavez MD, MAKAYLA, RPVI, FSVS, FACS [facility] [employer] [facility] This note was created with the assistance of a speech recognition program. While intending to generate a timely document that accurately reflects the content of the visit, no guarantee can be provided that every grammatical or spelling mistake has been or will be identified or corrected. Thank you for your understanding. documented in this encounter [facility] 05-24-2024 History of Presen t illness Narrative Images from the original note were not included. Lesions: Location: left shoulder-post Duration: alejandra Quality: denies pain, denies itch Associated symptoms: bleeding, non-healing Treatments: none New patient All pertinent medical history, medications, and allergies were reviewed. General Exam: alert, oriented to person, place, and time, normal affect, well appearing Unaccompanied A focused exam completed based on patient reported problems, see below: 1. Neoplasm of unspecified behavior of bone, soft tissue, and skin Left Upper Back Erythematous bleeding nodule Lesion biopsy Type of biopsy: tangential Informed consent: discussed [...] taken Amount of lidocaine used: 1.0 cc Specimen A - Dermatopathology exam Differential Diagnosis: SCC vs. BCC vs. ISK vs. Melanoma Check Margins: No Size of lesion: 2.5 x 2.3 cm Biopsy today, see procedure note. Next Visit: pending biopsy results documented in this encounter [facility] 04-25-2024 Evaluation + Plan note Associated Problem(s): Cardiac and Vasculature Reports remote stress testing. June 2022 TTE LVEF 65-70% RV dilation with severe hypokinesis distal RCA. Right bundle branch block and left anterior fascicular block Prior iliac stenting-follows with local vascular. [facility] Work Phone: 04-25-2024 Miscellaneous Notes Associated Problem(s): Cardiac and Vasculature Reports remote stress testing. June 2022 TTE LVEF 65-70% RV dilation with severe hypokinesis distal RCA. Right bundle branch block and left anterior fascicular block Prior iliac stenting-follows with local vascular. Associated Problem(s): Mixed hyperlipidemia Moderate intensity statin Associated Problem(s): BMI 27.0-27.9,adult Weight is up 8 pounds today. 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 VASc 2 chronically anticoagulated full dose Eliquis (age 68, wt 80kg) Denies bleeding diathesis [facility] Work Phone: 04-25-2024 Evaluation + Plan note Associated Problem(s): Paroxysmal atrial fibrillation (Multi) Diagnosis June 2022 and placed on dofetilide Device interrogations with 5 % mode switching Asymptomatic ECG ST in office today (was not wearing oxygen on ride into office) [facility] Work Phone: 04-25-2024 Evaluation + Plan note Associated Problem(s): Pacemaker SJM 2272 dual chamber PPM Dec 2023 device interrogation [facility] Work Phone: 04-25-2024 Evaluation + Plan note Associated Problem(s): High risk medication use Dofetilide start date June [address], QTC 474. Right bundle branch block CR - labs ordered [facility] Work Phone: 04-24-2024 History of Presen t [...] branch block CR - labs ordered Pacemaker M 2272 dual chamber PPM Dec 2023 device interrogation Paroxysmal atrial fibrillation (Multi) Diagnosis June 2022 and placed on dofetilide Device interrogations with 5 % mode switching Asymptomatic ECG ST in office today (was not wearing oxygen on ride into office) correction current use of anticoagulant therapy [facility]AS[facility] [...] contact the office if new symptoms arise. PEOPLE MANAGER 6 months Cyndi Asif MSN, CITY COLLECTOR-TRAFFIC PERSONNEL SUPERVISOR, PMHNP-[facility] [place], [place] Please excuse any errors in grammar or translation related to this dictation. Voice recognition software was utilized to prepare this document. documented in this encounter [facility] Work Phone: 04-24-2024 Instructions PETER Montanez - [...] contact the office if new symptoms arise. PEOPLE MANAGER 6 months documented in this encounter [facility] Work Phone: 07-28-2023 Evaluation + Plan note Associated Problem(s): Severe claudication (CMS-HCC) I am add doing aspirin and statin to his medication. He has patent iliac stent. He has infrainguinal disease. The claudication is not significant to indicate intervention. Recommend walking and exercise. He does not smoke. [facility] 07-28-2023 Miscellaneous Notes Associated Problem(s): Severe claudication (CMS-HCC) I am add doing aspirin and statin to his medication. He has patent iliac stent. He has infrainguinal disease. The claudication is not significant to indicate intervention. Recommend walking and exercise. He does not smoke. documented in this encounter [facility] 07-28-2023 History of Presen t illness Narrative [...] Medical History: Diagnosis Date Deep vein thrombosis ([facility]-HCC) Past Surgical History: Past Surgical History: Procedure [...] Interpersonal Safety: Unknown (04/21/2023) Received from [facility] Safety & Environment Fear of Current [...] Ran Chavez MD, MAKAYLA, RPVI, FSVS, FACS [facility] This note was created with the assistance of a speech recognition program. While intending to generate a timely document that accurately reflects the content of the visit, no guarantee can be provided that every grammatical or spelling mistake has been or will be identified or corrected. Thank you for your understanding. documented in this encounter [facility] 06-09-2023 Evaluation + Plan note Associated Problem(s): Severe claudication (CMS-HCC) 67-year-old gentleman with multiple vascular procedures in the past iliac stent in the left side and bilateral lower extremity bypasses. He does not have any recent testing. He is on aspirin Plavix and statin. We will get PVR and continue aspirin Plavix and statin. I recommended continued to stay active with walking [facility] 06-09-2023 Miscellaneous Notes Associated Problem(s): Severe claudication (CMS-HCC) 67-year-old gentleman with multiple vascular procedures in the past iliac stent in the left side and bilateral lower extremity bypasses. He does not have any recent testing. He is on aspirin Plavix and statin. We will get PVR and continue aspirin Plavix and statin. I recommended continued to stay active with walking documented in this encounter [facility] 06-09-2023 History of Presen t illness Narrative [...] Medical History: Diagnosis Date Deep vein thrombosis ([facility]-HCC) Past Surgical History: Past Surgical History: Procedure [...] Interpersonal Safety: Unknown (04/21/2023) Received from [facility] Safety & Environment Fear of Current or [...] art duplex lwr bilateral Vas aorta/iliac duplex complete Jaime was seen today for claudication. 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 While intending to generate a timely document that accurately reflects the content of the visit, no guarantee can be provided that every grammatical or spelling mistake has been or will be identified or corrected. Thank you for your understanding. documented in this encounter [facility] 05-04-2023 History of Presen t illness Narrative [...] syndrome) (CMS/HCC) Mitigated with pacemaker implant. 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 Necessary [...] discussion and plan. documented in this encounter [facility] Work Phone: 05-04-2023 Instructions Brigida Hernandez LPN [...] up per routine documented in this encounter [facility] Work Phone: 09-14-2022 Evaluation note Encounter Date Diagnosis Assessment Notes Aug, Anemia (ICD-10 - D64.9) [facility] Other 05-14-2023 History and physical note Author Iris Lassiter [facility] July 11, 2022 1:36am Note Date/Time July 10, 2022 11:05 pm [facility] [address] [place] [address] Hospitalist H&P Signed Patient: Jaime Lechuga MR#: [id number] : 1955 Acct:[id number] Age/Sex: 66 / M Adm Date: 3 Loc: Room: [address] [place] [address] Type: ADM IN Attending Dr: Iris Lassiter [...] 19:28 MCH 23.6 pg (27.5-35.2) L 07/10/22 19: MCHC 29.5 g/dL (32.5-35.6) L 07/10/22 19: RDW 18.0 % (12.0-14.8) H 07/10/22 19: Plt Count 180 x10E3/uL (150-450) 07/10/22 19: MPV 9.9 fl (6.6-10.1) 07/10/22 19: Neut % (Auto) 82.1 % (.) 07/10/22 19: Lymph % (Auto) 7.3 % (.) 07/10/22 19: [place] % (Auto) 10.0 % (.) 07/10/22: Eos % (Auto) 0.0 % (.) 07/10/22: Baso % (Auto) 0.6 % (.) 07/10/22: Nucleat RBC Rel Count 1.7 /100 WBC (0-0.5) H 07/10/22 19: Neut # (Auto) 10.5 x10E3/uL (1.8-7.7) H 07/10/22 19: Lymph # (Auto) 0.9 x10E3/uL (1.00-4.8) L 07/10/22 19: [place] # (Auto) 1.3 x10E3/uL (0.0-0.8) H 07/10/22 19: Eos # (Auto) 0.0 x10E3/uL (0.0-0.45) 07/10/22 19: Baso # (Auto) 0.1 x10E3/uL (0.0-0.2) 07/10/22 19: Monocyte Dist Width 17.34 % (0.00-20.00) 07/10/22: Platelet Estimate Normal (Normal) 07/10/22 19: Large Platelets Slight 07/10/22 19: Plt Morphology Comment N/A 07/10/22 19: RBC Morphology N/A 07/10/22 19: Polychromasia Moderate 07/10/22 19: Hypochromasia Moderate 07/10/22 19:28 Anisocytosis Slight 07/10/22 [...] Anion Gap 17.9 mEq/L (6.0-15.0) H 07/10/22 19: BUN 59 mg/dL (7-25) H 07/10/22 19: Creatinine 2.17 mg/dL (0.70-1.30) H 07/10/22: Est GFR (CKD-EPI) 32.762 mL/Min 07/10/22: Glucose 110 mg/dL (70-100) H 07/10/22 19: Lactic Acid 6.1 mmol/L (0.5-2.2) H* 07/10/22: Calcium 7.1 mg/dL (8.6-10.3) L 07/10/22: Magnesium 2.1 mg/dL (1.9-2.7) 07/10/22: Total Bilirubin 1.3 mg/dl (0.3-1.0) H 07/10/22 19: AST 789 U/L (13-39) H 07/10/22: ALT 615 U/L (7-52) H 07/10/22: Alkaline Phosphatase 235 U/L (34-104) H 07/10/22: Total Creatine Kinase 53 U/L (30-223) 07/10/22: Troponin I High Sens 48.3 pg/mL (0.0-20.0) H 07/10/22: Total Protein 6.5 gm/dL (6.4-8.9) 07/10/22: Albumin 3.3 gm/dL (3.5-5.7) L 07/10/22: Globulin 3.2 gm/dL 07/10/22: Albumin/Globulin Ratio 1.0 07/10/22: TSH 3rd Generation 2.96 uIU/mL (0.45-5.33) 07/10/22: Urine Color Dark yellow (Yellow) A 07/10/22 Urine Appearance Cloudy (Clear) A 07/10/22 Urine pH 5.0 (5.0-9.0) 07/10/22: Ur Specific [place] 1.020 (1.001-1.030) 07/10/22: Urine Protein 100 mg/dL (Negative) H 05/13/23 22:23 Urine Glucose (UA) Normal mg/dL (Normal) 07/10/22 22:23 Urine Ketones Trace (Negative) H 07/10/22 22:23 Urine Occult Blood Negative (Negative) 07/10/22 22: Urine Nitrite Negative (Negative) 07/10/22 22:23 Urine Bilirubin 1+ (Negative) H 07/10/22 22:23 Urine Urobilinogen Normal mg/dL (Normal) 07/10/22 22:23 Ur Leukocyte Esterase 1+ (Negative) H 07/10/22 22:23 Urine RBC 5-9 /HPF (0-4) H 07/10/22 22:23 Urine WBC 5-9 /HPF (0-4) H 07/10/22 22:23 Ur Squamous Epith Cells 3-4 /HPF (0-2) H 07/10/22 22:23 Urine Bacteria None seen (None Seen) 07/10/22 22: Hyaline Casts 9-19 /LPF (0-8) H 07/10/22 [...] Iris Lassiter DO> 07/11/22 0136 [facility] Work Phone: [phone] 439-923710-12-2022 [id number] discussion with patient regarding importance of smoking cessation he voiced understanding and states he will try to quit smoking again in light he is only smoking 4 to 5 cigarettes a [facility]Un[facility] 12-09-2021 NoteNYHC II-currently euvolemic without exacerbation Continue goal-directed medical therapy-he has not needed any diuresis. Continue fluid restriction 1-1/2 to 2 L/day, low-sodium diet, daily weights discussed with patient when to call office for concerns of increased weight, increased shortness of breath or orthopnea or any other concerns and he voiced understandingUnChillicothe [facility]10-12-2022 NoteNo concerning symptoms today, strongly recommended to continue medication regimen and to quit smokingUnChillicothe [facility]10-12-2022 Note [id number]= 4 age, HTN, CHF, vascular disease Continue eliquis anticoagualtion- denied bleeding tendencies Currently in rhythm per assessment Continue diltiazem, digoxin and metoprolol as prescribedUnChillicothe [facility] Center10-12-2022 NoteHPI: Jaime Lechuga is a [...] Echo 07/17/21 Assessment/Plan: Paroxysmal atrial fibrillation (CMS/HCC) [id number]= 4 age, HTN, CHF, vascular disease Continue eliquis anticoagualtion- denied bleeding tendencies Currently in rhythm per assessment Continue diltiazem, digoxin and metoprolol as prescribed Peripheral vascular disease (CMS/HCC) No concerning symptoms today, strongly recommended to continue medication regimen and to quit smoking Chronic diastolic heart failure (CMS/HCC) [facility] II-currently euvolemic without exacerbation Continue goal-directed [...] to 1 year unless [facility] NoteSubjective Jaime Lechuga is a 66 [...] Lab Review: Assessment/Plan There were no encounter diagnoses.[facility] Diagnosis Onset Date Resolution Status Acidosis, lactic acute Elevated troponin acute Hypotension acute Hypoxemia acute Junctional bradycardia acute Renal insufficiency acute [facility] Work Phone: Evaluation noteNo assessment information available [facility] Work Phone: Evaluation note* Diagnosis Paroxysmal atrial fibrillation (CMS/HCC)- Primary Atrial fibrillation SSS (sick sinus syndrome) ([facility]/HCC) Sinoatrial node dysfunction 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 Pacemaker Cardiac pacemaker in situ BMI 25.0-25.9,adult Former smoker Personal history of tobacco use, presenting hazards to health documented in this encounter [facility] Work Phone: Evaluation note* Diagnosis Severe claudication (CMS-HCC)- Primary Iliac artery occlusion, 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 [facility] Diagnosis Severe claudication (CMS-HCC)- Primary 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) [facility] Diagnosis High risk medication use- Primary Paroxysmal atrial fibrillation (Multi) Atrial fibrillation correction current use of anticoagulant therapy Pacemaker Cardiac pacemaker in situ BMI 27.0-27.9,adult Mixed hyperlipidemia documented in this encounter [facility] Work Phone: Evaluation note* Diagnosis Severe claudication- Primary 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 Pacemaker Cardiac pacemaker in situ BMI 27.0-27.9,adult Mixed hyperlipidemia High risk medication use- Primary Paroxysmal atrial fibrillation (Multi) Atrial fibrillation correction current use of anticoagulant therapy Pacemaker Cardiac pacemaker in situ Mixed hyperlipidemia BMI 26.0-26.9,adult documented in this encounter [facility] Work Phone: History general Narrative - Reported* Type Description Date Medical History hernia Medical History pacemaker Medical History COPD Medical History ILIAC STENT PLACEMENT Medical History RECTAL FISTULA Surgical History hernia repair Surgical History ILIAC STENT PLACEMENT Surgical History RECTAL FISTULA Hospitalization History SEE ABOVE [facility] Other History of Present illness Narrative* The [...] medication regimen. He denies medication side effects. Merged with [facility] DO Work Phone: History of Present illness [...] medication regimen. He denies medication side effects. Merged with [facility] DO Work Phone: History of Present illness [...] * Risks: no increased risk for falling. -[facility] DO Work Phone: InstructionsNot on filedocumented in this encounter [facility] [employer] SystemInstructionsNot on filedocumented in this encounter [facility] [employer] SystemInstructionsNot on filedocumented in this encounter [facility] [employer] SystemInstructionsNot on filedocumented in this encounter [facility] Summary Purpose Family History No Family [...] Date/ Time Advance Directives No July 10 8:20pm Chief Complaint and Reason for Visit Chief Complaint low heart rate Reason for Visit Acidosis, lactic Elevated troponin Hypotension Hypoxemia Junctional bradycardia Renal insufficiency Chief Complaint sss Chief Complaint SSS Chief Complaint Admit Date SSS January 31, 2024 8 :57pm SSS April 27, 2024 8:29am Chief Complaint Admit Date SSS April 27, 2024 8:29am Chief Complaint Admit Date C44.519 July 10, 2024 10:54 am I49.5 Z95.0 July 27, 2024 8:30a m I49.5 Z95.0 July 27, 2024 12:51 pm Chief Complaint * 3 month f/u: 'seem to be doing ok' * JAIMEOTTO MOJICALECHUGA is being seen for a 15 week follow-up of post pcm. * 3 month f/u: 'seem to be doing ok' * JAIMEOTTO LECHUGA is being seen for a 15 week follow-up of post pcm. * Patient presents to the office ambulatory with steady gait. This is initial in clinic follow-up at [facility]. * Patient reports remote history of iliac stenting in [place] and has been maintained on Plavix for 7 years, follows with vascular in [place]. Reports being hospitalized last year in [place] due to atrial fibrillation and started on Eliquis at that time, no antiarrhythmics. * June 2022 presented to [facility] due to weakness, seen in consult by [...] labs approximately 1 month ago at the [facility]. 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) Procedures Vas aorta/iliac duplex complete Ran Chavez MD [address], [address] [address] Referral ID Status Reason Start Date Expiration Date V isits Requested Visits Authorized [id number] Pending Review 06/09/2023 06/08/2024 1 1 Specialty Diagnoses / Procedures Referred By Contac t Referred To Contact Diagnoses Severe claudication (CMS-HCC) Procedures Vas art duplex lwr bilateral Ran Chavez MD [address], [address] [address] Referral ID Status Reason Start Date Expiration Date V isits Requested Visits Authorized [id number] Pending Review 06/09/2023 06/08/2024 1 1 Specialty Diagnoses / Procedures Referred By Contac t Referred To Contact Diagnoses Severe claudication (CMS-HCC) Procedures Vas art doppler lwr bilat mult lev/PVR Ran Chavez MD [address], [address] [address] Phone: Referral ID Status Reason Start Date Expiration Date V isits Requested Visits Authorized [id number] Pending Review 06/09/2023 06/08/2024 1 1 Specialty Diagnoses / Procedures Referred By Contac t Referred To Contact Diagnoses Severe claudication (CMS-HCC) Iliac artery occlusion, bilateral (CMS-HCC) Procedures Vas aorta/iliac duplex complete Ran Chvaez MD J[address], [address] [address] Phone: Referral ID Status Reason Start Date Expiration Date V isits Requested Visits Authorized [id number] Pending Review 07/28/2023 07/27/2024 1 1 Specialty Diagnoses / Procedures Referred By Contac t Referred To Contact Diagnoses Severe claudication (CMS-HCC) Procedures Vas art doppler lwr bilat mult lev/PVR Ran Chavez MD J[address], [address] [address] Phone: Referral ID Status Reason Start Date Expiration Date V isits Requested Visits Authorized [id number] Pending Review 07/28/2023 07/27/2024 1 1 Specialty Diagnoses / Procedures Referred By Contac t Referred To Contact Diagnoses Paroxysmal atrial fibrillation (CMS/HCC) Procedures ECG 12 Lead Jaziel Gomez MD [facility], [address] [address] Referral ID Status Reason Start Date Expiration Date V isits Requested Visits Authorized [id number] Authorized 05/04/2023 05/03/2024 1 1 Specialty Diagnoses / Procedures Referred By Contac t Referred To Contact Cardiology Diagnoses Paroxysmal atrial fibrillation (CMS/HCC) Procedures Follow Up In Cardiology Jaziel Gomez MD [facility], [address] [address] Cyndi Asif, CITY COLLECTOR-TRAFFIC PERSONNEL SUPERVISOR [facility] [address], [address] [address] Referral ID Status Reason Start Date Expiration Date V isits Requested Visits Authorized [id number] Authorized 05/04/2023 05/03/2024 1 1 Additional Source Comments (unrecognized sect ion and content) No Status Records FoundNo Status Records FoundNo Status Records FoundNo Status Records FoundNo Status Records FoundNo Status Records FoundNo Status Records FoundNo Status Records Found INFORMATION SOURCE (unrecogn ized section and content) DATE CREATED AUTHOR 11/25/2021 [facility] DATE CREATED AUTHOR AUTHOR'S ORGANIZ ATION 12/09/2021 [facility] DATE CREATED AUTHOR AUTHOR'S ORGANIZ ATION 11/12/2022 [facility] DATE CREATED AUTHOR AUTHOR'S ORGANIZ ATION 11/12/2022 [employer] DATE CREATED AUTHOR AUTHOR'S ORGANIZ ATION 05/25/2024 [facility] DATE CREATED AUTHOR AUTHOR'S ORGANIZ ATION 07/28/2024 [facility] DATE CREATED AUTHOR AUTHOR'S ORGANIZ ATION 08/05/2024 [facility] DATE CREATED AUTHOR AUTHOR'S ORGANIZ ATION 10/09/2024 [facility] [employer] Worker Teams (unrecognized sec tion and content) Team Status: Active Member Role Status Dates Jose Manuel N Ybarra , PEOPLE MANAGER-C Primary Care Provider Ac tive Team Status: Inactive Member Role Status Dates Bradford Vines MD Attending Provider Active Start: July 10, 2024 End: July 10, 2024 Team Status: Active Member Role Status Dates Cyndi Asif APRN Other Provider Active Start : July 27, 2024 Ale Perry MD Attending Provider Active Start: July 27, 2024 Team Status: Inactive Member Role Status Dates Cyndi Asif APRN Attending Provider Active S tart: July 27, 2024 End: July 27, 2024 Jose Manuel Ybarra NP-C Primary Care Provider Ac tive Start: July 27, 2024 End: July 27, 2024 Team Status: Active Member Role Status Dates PHYSICIAN NO FAMILY Primary Care Provider Active Team Status: Inactive Member Role Status Dates Jaziel Gomez MD Attending Provider Active Start: October 26, [...] Active Team Status: Inactive Member Role Status Noam Allen MD Primary Care Provider Active Jaziel Gomez MD Attending Provider Active Wheel Press Operator Relationship Specialty Start Date End Date Shaikh Allen MD [facility] [place] [address] PCP - General Internal Medicine 05/04/23 Jaziel Gomez MD [facility] [address], [address] [address] Consulting Physician Cardiology 05/04/23 Team Status: Inactive Member Role Status Dates Shaikh Tiffany MD Primary Care Provider Active Start: July 27, 2023 End: July 27, 2023 Jaziel Gomez MD Attending Provider Active Start: July 27, 2023 End: July 27, 2023 Wheel Press Operator Relationship Specialty Start Date End Date Shaikh Allen MD [address] [place] [address] PCP - General Internal Medicine 05/04/23 Jaziel Gomez MD [address] [place] [address] Consulting Physician Cardiology 05/04/23 Team Status: Active Member Role Status Dates Kentrell Garcia DO Other Provider Active Start : January 31, 2024 RANJAN GordonC Primary Care Provider Ac tive Start: January 31, 2024 Ale Perry MD Attending Provider Active Start: January 31, 2024 Team Status: Active Member Role Status Dates Jaziel Gomez MD Other Provider Active Start: April 27, 2024 Jose Manuel Ybarra NP-C Primary Care Provider Ac tive Start: April 27, 2024 Ale Perry MD Attending Provider Active Start: April 27, 2024 Wheel Press Operator Relationship Specialty Start Date End Date Shaikh Allen MD PCP - General Internal Medicine 12/14/22 Wheel Press Operator Relationship Specialty Start Date End Date Shaikh Allen MD PCP - General Internal Medicine 12/14/22 Wheel Press Operator Relationship Specialty Start Date End Date Shaikh Allen MD PCP - General Internal Medicine 12/14/22 Wheel Press Operator Relationship Specialty Start Date End Date Shaikh Allen MD [address] [place] [address] PCP - General Internal Medicine 05/04/23 Cyndi Asif APRN-CLEO [facility] [address], [address] [address] PCP - MSSP ACO Attributed Provider 02/29/24 Jaziel Gomez MD [address] [place] [address] Consulting Physician Cardiology 05/04/23 REASON FOR VISIT (unrecogniz ed section and content) Reason Comments Follow-up 6 months Reason Comments Claudication Acute occlusion of i liac artery due to thrombosis, Severe Claudication. Testing prior at [facility] 02 96% NA peripheral artery disease Reason Comments Claudication Reason Comments Follow-up 8m Specialty Diagnoses / Procedures Referred By Contac t Referred To Contact Cardiology Diagnoses Paroxysmal atrial fibrillation (Multi) Procedures Follow Up In Cardiology Jaziel Gomez MD [address] [place] [address] Cyndi Asif, CITY COLLECTOR-TRAFFIC PERSONNEL SUPERVISOR [address] [place] [address], [address] [address] Phone: tel: fax: Referral ID Status Reason Start Date Expiration Date V isits Requested Visits Authorized [id number] Authorized 05/04/2023 05/03/2024 1 1 Reason Comments Med Refill Reason Comments Suspicious Skin Lesion Reason Comments 1 year follow up testing prior Reason Comments Follow-up Patient here for 6 m [facility] follow up for atrial fibrillation, c/o shortness of breath on exertion. Specialty Diagnoses / Procedures Referred By Contac t Referred To Contact Cardiology Diagnoses Paroxysmal atrial fibrillation (Multi) Procedures Follow Up In Cardiology Cyndi Asif APRN-TRAFFIC PERSONNEL SUPERVISOR [facility] [address], [address] [address] Phone: tel: fax: Referral ID Status Reason Start Date Expiration Date V isits Requested Visits Authorized [id number] Authorized 04/24/2024 04/24/2025 1 1 Goals (unrecognized section and content) [...] BE BASED ON THE PRIMARY CLINICAL RECORDS. [employer] [facility]. provides no warranty or guarantee of the accuracy or completeness [phone] in this [id number]
[2024-10-11 12:43] LABS: Hematocrit 34.6 % (42.0-54.0); Hemoglobin 10.7 g/dL (14.0-18.0); Immature Granulocytes Abs Auto 0.02 10^3/uL (0.00-0.03); Immature Granulocytes Pct Auto 0.2 % (0.0-0.5); Lymphocytes Absolute Auto 2.8 10^3/uL (1.2-3.8); Mean Corpuscular HGB Conc 30.9 g/dL (29.9-35.2); Mean Corpuscular Hemoglobin 30.7 pg (25.9-34.0); Mean Corpuscular Volume 99.4 fL (80.0-94.0); Platelet Count 262 10^3/uL (150-450); Red Blood Count 3.48 10^6/uL (4.70-6.10); White Blood Count 12.9 10^3/uL (4.0-11.0)
[2024-10-11 13:04] LABS: Alanine Aminotransferase 26 U/L (16-63); Anion Gap 4.4; Aspartate Amino Transferase 14 U/L (15-37); Blood Urea Nitrogen 14.0 mg/dL (7.0-18.0); Calcium 9.2 mg/dL (8.5-10.1); Carbon Dioxide 38.8 mmol/L (21.0-32.0); Chloride 98 mmol/L (98-107); Cholesterol 144 mg/dL (<=200); Estimated GFR (African America >60 (>=60 mL/min/1.73m^2); Estimated GFR (Non-African Ame >60 (>=60 mL/min/1.73m^2); Glucose 149 mg/dL (74-106); HDL Cholesterol 58 mg/dL (40-60); Potassium 3.2 mmol/L (3.5-5.1); Sodium 138 mmol/L (136-145); Triglycerides 132 mg/dL (<=150); VLDL CHOLESTEROL 26.4 mg/dL
== END 2024-10-11 11:55 | disposition home or self-care (01) ==
LOC: LAB 11:56
PROVIDERS: Visit Provider Nurse Practitioner
DX: I48.0 Paroxysmal atrial fibrillation (principal); E78.2 Mixed hyperlipidemia; Z79.01 Long term (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 of anticoagulants; Z79.899 Other long term (current) drug therapy
CPT/HCPCS: 36415; 80048; 80061; 84450; 84460; 85025